=== PATIENT | female | born 1960 | race Caucasian/White ===

== ENCOUNTER 2017-07-03 22:06 | Inpatient (IN) | payer OTHER ==
[2017-07-03] MEDS ORDERED: IPRATROPIUM-ALBUTEROL 3 ML NEB INHALATION STA (22:31)
--- NOTE | 2017-07-03 22:34 | ED ---
General Adult HPI - General Chief complaint: Shortness of Breath Stated complaint: SHRUTI Time Seen by Provider: 07/03/17 22:28 Source: patient, RN notes reviewed Mode of arrival: wheelchair Limitations: no limitations - History of Present Illness Initial comments: Patient is a pleasant 56-year-old female presents emergency department complaining of difficulty breathing. Onset of symptoms was earlier today. Symptoms have progressed of the day. No significant cough. Breathing feels tight otherwise no significant chest discomfort. Patient does have a history of emphysema however does not normally take nebulizer or inhaler. No leg pain or leg swelling. No fever. - Related Data Home Medications Medication Instructions Recorded Confirmed No Known Home Medications [No 07/03/17 07/03/17 Known Home Medications] Allergies Allergy/AdvReac Type Severity Reaction Status Date / Time No Known Allergies Allergy Verified 07/03/17 22:54 Review of Systems ROS Statement: Those systems with pertinent positive or pertinent negative responses have been documented in the HPI. ROS Other: All systems not noted in ROS Statement are negative. Constitutional: Denies: fever Eyes: Denies: eye pain ENT: Denies: ear pain Respiratory: Reports: dyspnea Cardiovascular: Denies: chest pain Endocrine: Denies: fatigue Gastrointestinal: Denies: abdominal pain Genitourinary: Denies: dysuria Musculoskeletal: Denies: back pain Skin: Denies: rash Neurological: Denies: weakness Past Medical History Past Medical History: No Reported History Additional Past Medical History / Comment(s): collapsed lung History of Any Multi-Drug Resistant Organisms: None Reported Past Surgical History: Breast Surgery Additional Past Surgical History / Comment(s): mastectomy Past Psychological History: No Psychological Hx Reported Smoking Status: Never smoker Past Alcohol Use History: Occasional Past Drug Use History: None Reported General Exam Limitations: no limitations General appearance: alert, in no apparent distress, other (Speaks in 3-4 word sentences) Head exam: Present: atraumatic Eye exam: Present: normal appearance, PERRL ENT exam: Present: normal oropharynx Neck exam: Present: normal inspection Respiratory exam: Present: decreased breath sounds Cardiovascular Exam: Present: regular rate, normal rhythm GI/Abdominal exam: Present: soft. Absent: tenderness Extremities exam: Present: normal inspection. Absent: pedal edema, calf tenderness Neurological exam: Present: alert Psychiatric exam: Present: normal affect, normal mood Skin exam: Present: normal color Course Vital Signs 07/03/17 07/03/17 07/03/17 22:08 22:34 22:42 Temperature 97.4 F L Pulse Rate 91 88 86 Respiratory 20 Rate Blood Pressure 187/93 O2 Sat by Pulse 79 L Oximetry 07/03/17 07/03/17 07/04/17 23:03 23:54 00:25 Temperature Pulse Rate 85 100 90 Respiratory 22 26 H 22 Rate Blood Pressure 160/95 140/91 148/80 O2 Sat by Pulse 95 96 95 Oximetry 07/04/17 00:52 Temperature Pulse Rate 80 Respiratory 20 Rate Blood Pressure 125/83 O2 Sat by Pulse 95 Oximetry - Reevaluation(s) Reevaluation #1: 07/04/17 00:44 Case was discussed with Dr. Talavera who will admit for hospital call with [facility] emergency department physician. Consult pulmonary. Dr. Henderson has been paged. 07/04/17 00:54 Following chest tube patient was taken off Ventimask and switched to nasal cannula and now has 94% pulse ox. EKG Findings - EKG Comments: EKG Findings:: Normal sinus rhythm 80. AZ 166. QRS 102. QT 374. QTC 431. Normal axis. Incomplete right bundle-branch block. No acute ST change. Motion artifact is present. Procedures - Chest Tube Insertion Consent Obtained: written consent Time Out Performed: Yes Side of Procedure: right Indication: Pneumothorax Site Prep: Chloroprep Local Anesthesia: Lidocaine 1% Insertion Site: 5th Intercostal Space (Anterior axillary line) Scalpel: #10 Open into Pleural Space Using: Lainey Clamp Tube Size (Guamanian): [address]: Yes Type of Suture: Nylon Dressing Applied: Petroleum Gauze Attached to Suction: Yes Type of Suction: Pleuravac Repeat X-ray Results: Other (Some improvement of pneumothorax. Chest tube in appropriate place.) Patient Tolerated Procedure: well, no complications Medical Decision Making - Lab Data Result diagrams: 07/03/17 22:30 07/03/17 22:30 Lab Results 07/03/17 07/03/17 07/03/17 Range/Units 22:30 22:30 22:30 WBC 12.0 H (3.8-10.6) k/uL RBC 4.89 (3.80-5.40) m/uL Hgb 14.5 (11.4-16.0) gm/dL Hct 45.2 (34.0-46.0) % MCV 92.5 (80.0-100.0) fL MCH 29.7 (25.0-35.0) pg MCHC 32.1 (31.0-37.0) g/dL RDW 13.8 (11.5-15.5) % Plt Count 243 (150-450) k/uL Neutrophils % 81 % Lymphocytes % 12 % Monocytes % 4 % Eosinophils % 2 % Basophils % 0 % Neutrophils # 9.7 H (1.3-7.7) k/uL Lymphocytes # 1.4 (1.0-4.8) k/uL Monocytes # 0.5 (0-1.0) k/uL Eosinophils # 0.2 (0-0.7) k/uL Basophils # 0.0 (0-0.2) k/uL PT (9.0-12.0) sec INR (<1.2) APTT (22.0-30.0) sec D-Dimer (<0.60) mg/L FEU Sodium 137 (137-145) mmol/L Potassium 4.5 (3.5-5.1) mmol/L Chloride 98 (98-107) mmol/L Carbon Dioxide 30 (22-30) mmol/L Anion Gap 9 mmol/L BUN 10 (7-17) mg/dL Creatinine 0.57 (0.52-1.04) mg/dL Est GFR (MDRD) Af Amer >60 (>60 ml/min/1.73 sqM) Est GFR (MDRD) Non-Af >60 (>60 ml/min/1.73 sqM) Glucose 113 H (74-99) mg/dL Calcium 9.6 (8.4-10.2) mg/dL Total Bilirubin 0.5 (0.2-1.3) mg/dL AST 24 (14-36) U/L ALT 34 (9-52) U/L Alkaline Phosphatase 106 (38-126) U/L Total Creatine Kinase 71 (30-135) U/L CK-MB (CK-2) 1.7 (0.0-2.4) ng/mL CK-MB (CK-2) Rel Index 2.4 Troponin I <0.012 (0.000-0.034) ng/mL NT-Pro-B Natriuret Pep pg/mL Total Protein 8.1 (6.3-8.2) g/dL Albumin 4.7 (3.5-5.0) g/dL 07/03/17 07/03/17 Range/Units 22:30 22:30 WBC (3.8-10.6) k/uL RBC (3.80-5.40) m/uL Hgb (11.4-16.0) gm/dL Hct (34.0-46.0) % MCV (80.0-100.0) fL MCH (25.0-35.0) pg MCHC (31.0-37.0) g/dL RDW (11.5-15.5) % Plt Count (150-450) k/uL Neutrophils % % Lymphocytes % % Monocytes % % Eosinophils % % Basophils % % Neutrophils # (1.3-7.7) k/uL Lymphocytes # (1.0-4.8) k/uL Monocytes # (0-1.0) k/uL Eosinophils # (0-0.7) k/uL Basophils # (0-0.2) k/uL PT 10.3 (9.0-12.0) sec INR 1.0 (<1.2) APTT 25.3 (22.0-30.0) sec D-Dimer 0.24 (<0.60) mg/L FEU Sodium (137-145) mmol/L Potassium (3.5-5.1) mmol/L Chloride (98-107) mmol/L Carbon Dioxide (22-30) mmol/L Anion Gap mmol/L BUN (7-17) mg/dL Creatinine (0.52-1.04) mg/dL Est GFR (MDRD) Af Amer (>60 ml/min/1.73 sqM) Est GFR (MDRD) Non-Af (>60 ml/min/1.73 sqM) Glucose (74-99) mg/dL Calcium (8.4-10.2) mg/dL Total Bilirubin (0.2-1.3) mg/dL AST (14-36) U/L ALT (9-52) U/L Alkaline Phosphatase (38-126) U/L Total Creatine Kinase (30-135) U/L CK-MB (CK-2) (0.0-2.4) ng/mL CK-MB (CK-2) Rel Index Troponin I (0.000-0.034) ng/mL NT-Pro-B Natriuret Pep 109 pg/mL Total Protein (6.3-8.2) g/dL Albumin (3.5-5.0) g/dL Disposition Clinical Impression: Pneumothorax on right Disposition: ADMITTED IP TO THIS HOSP Referrals: None,Stated [Primary Care Provider] - 1-2 days Decision Time: 00:57
[2017-07-03 22:44] LABS: Basophils % (A) 0 %; CH 29.9; CHCM 32.5; Eosinophils # (A) 0.2 k/uL (0-0.7); Eosinophils % (A) 2 %; HCT 45.2 % (34.0-46.0); HDW 2.29; HGB 14.5 gm/dL (11.4-16.0); Luc # (Auto) 0.14; Luc % (Auto) 1; Lymphocytes # (A) 1.4 k/uL (1.0-4.8); Lymphocytes % (A) 12 %; MCH 29.7 pg (25.0-35.0); MCHC 32.1 g/dL (31.0-37.0); MCV 92.5 fL (80.0-100.0); Mean Platelet Volume 8.7; Monocytes # (A) 0.5 k/uL (0-1.0); Monocytes % (A) 4 %; Neutrophils # (A) 9.7 k/uL (1.3-7.7); Neutrophils % (A) 81 %; RBC 4.89 m/uL (3.80-5.40); RDW 13.8 % (11.5-15.5)
[2017-07-03 22:55] LABS: ALT 34 U/L (9-52); AST 24 U/L (14-36); Alkaline Phosphatase 106 U/L (38-126); Anion Gap 9 mmol/L; Blood Urea Nitrogen 10 mg/dL (7-17); Calcium 9.6 mg/dL (8.4-10.2); Carbon Dioxide 30 mmol/L (22-30); Chloride 98 mmol/L (98-107); Glucose 113 mg/dL (74-99); Non-African American GFR(MDRD) >60 (>60 ml/min/1.73 sqM); Potassium 4.5 mmol/L (3.5-5.1); Sodium 137 mmol/L (137-145); Total Bilirubin 0.5 mg/dL (0.2-1.3); Total Protein 8.1 g/dL (6.3-8.2)
[2017-07-03 23:01] LABS: Partial Thromboplastin Time 25.3 sec (22.0-30.0); Prothrombin Time 10.3 sec (9.0-12.0)
--- NOTE | 2017-07-03 23:14 | XR ---
EXAM: XR Chest, 1 View CLINICAL HISTORY: Reason: dyspnea TECHNIQUE: Frontal view of the chest. COMPARISON: No relevant prior studies available. FINDINGS: Lungs: Biapical scarring. Pleural space: Paucity of lung markings in the right lung base concerning for pneumothorax possibly loculated. Small bilateral pleural effusions are seen. Heart: Unremarkable. No cardiomegaly. Mediastinum: Unremarkable. Bones/joints: Unremarkable. IMPRESSION: 1. Paucity of lung markings in the right lung base concerning for pneumothorax possibly loculated. Consider dedicated AP and lateral decubitus views for better characterization or CT. 2. Small bilateral pleural effusions are seen. [employer] 07/03/17 23:24 Call Doctor Regarding Pneumothorax, called Dr. Price on 07/03 23:22 (-04:00)
[2017-07-03 23:37] LABS: Creatine Kinase 71 U/L (30-135)
[2017-07-03] MEDS ORDERED: LORazepam 2 MG/ML SYRINGE IV STA (23:48)
[2017-07-03] MEDS ORDERED: MORPHINE SULFATE 4 MG/ML SYRINGE IVP STA (23:48)
[2017-07-03 23:49] LABS: Creatine Kinase MB 1.7 ng/mL (0.0-2.4); Troponin I <0.012 ng/mL (0.000-0.034)
--- NOTE | 2017-07-03 23:52 | CT ---
EXAM: CT Chest Without Intravenous Contrast CLINICAL HISTORY: Reason: dyspnea TECHNIQUE: Axial computed tomography images of the chest without intravenous contrast. CTDI is 3.2 mGy and DLP is 139.7 mGy-cm. This CT exam was performed using one or more of the following dose reduction techniques: automated exposure control, adjustment of the mA and/or kV according to patient size, and/or use of iterative reconstruction technique. Coronal and sagittal reformatted images were created and reviewed. COMPARISON: CXR performed earlier. FINDINGS: Lungs: Postsurgical changes are seen within the right upper lobe with evidence of previous partial pneumonectomy. Pleural space: There is a loculated right-sided pneumothorax, overall moderate in size and approximately 25% by volume. The majority of the air appears to be within the more inferior pleural space. No significant effusion. Heart: Unremarkable. No cardiomegaly. No significant pericardial effusion. Bones/joints: Mild dextroconvex scoliosis. Multilevel Schmorl's nodes. No acute fracture. No dislocation. Soft tissues: Bilateral breast implants are seen. Vasculature: Unremarkable. No thoracic aortic aneurysm. Lymph nodes: Unremarkable. No enlarged lymph nodes. IMPRESSION: 1. There is a loculated right-sided pneumothorax, overall moderate in size and approximately 25% by volume. 2. Postsurgical changes are seen within the right upper lobe with evidence of previous partial pneumonectomy. [employer] 07/03/17 23:54 Call Doctor Regarding Pneumothorax, called Dr. Price on 07/03 23:53 (-04:00)
--- NOTE | 2017-07-04 00:48 | XR ---
EXAM: XR Chest, 1 View CLINICAL HISTORY: Reason: Pain TECHNIQUE: Frontal view of the chest. COMPARISON: Chest x-ray dated 07/03/[address] dated 07/03/17 FINDINGS: Lungs: There has been interval expansion of the lung. No consolidation. Pleural space: A prominent pocket of residual air seen inferiorly on the right. Heart: Unremarkable. No cardiomegaly. Mediastinum: Unremarkable. Bones/joints: Unremarkable. Tubes, lines and devices: Status post right-sided thoracostomy tube. IMPRESSION: Status post right-sided thoracostomy tube. There has been interval expansion of the lung. A prominent pocket of residual air seen inferiorly.
[2017-07-04] MEDS ORDERED: MORPHINE SULFATE 4 MG/ML SYRINGE IV PRN (00:57)
[2017-07-04] MEDS ORDERED: HYDROcodone/APAP 5-325MG 1 EACH TAB PO PRN (00:57)
[2017-07-04] MEDS ORDERED: NALOXONE 0.4 MG/ML 1 ML VIAL IV PRN (00:57)
[2017-07-04] MEDS: ONDANSETRON 4 MG/2 ML VIAL IVP PRN ×2 (01:32→07:43)
[2017-07-04] MEDS: SODIUM CHLORIDE 0.9% 1,000 ML IV SCH (01:33)
[2017-07-04] MEDS ORDERED: IPRATROPIUM-ALBUTEROL 3 ML NEB INHALATION PRN ×2 (01:52→04:09)
[2017-07-04] MEDS ORDERED: oxyCODONE-APAP 5-325MG 1 EACH TAB PO PRN (01:54)
[2017-07-04 02:08] VITALS: BMI 20.1
--- NOTE | 2017-07-04 05:36 | P.HPIM ---
History of Present Illness H&P Date: 07/04/17 Chief Complaint: Chest pain This patient is a 56 years old female with history pneumothorax around 10 years ago presents to the emergency room with complaints of shortness of breath that that started midday at work No known aggravating or alleviating factors no chest pain she she denied any trauma or fall. In the emergency room she was stabilized with oxygen and chest tube was inserted with relief of shortness of breath we were contacted by Dr. Price to admit this patient. Review of Systems Constitutional: Patient reports no fever, no chills, no weight changes, no change in appetite Eyes: Patient reports no double vision, no visual changes ENT: Patient reports no rhinorrhea, no post nasal drip, no sore throat Cardiovascular: Patient reports no chest, no edema, no syncope, no orthopnea, no paroxysmal nocturnal dyspnea. Respiratory: Patient reports dyspnea. Gastrointestinal: Patient reports no nausea, no vomiting, no constipation, no diarrhea Genitourinary: Patient reports no dysuria, no urinary frequency, no hematuria. Musculoskeletal: Patient reports no unusual joint pain, no joint swelling or weakness. Patient reports no muscular pain. Psychiatric: Patient reports no changes in mood, no sleeping problems. Patient reports no changes in memory. Endocrine: Patient reports no thirst, no polyuria, no cold intolerance, no heat intolerance. Neurological: Patient reports no unusual paresthesias, no seizures, no paresis , no paralysis, no facila droop, no headache. Heme/Lymphatic: Patient reports no easy bruising, no bleeding tendency, no lymphadenopathy. Allergic/ Immunologic: Patient reports no recent allergic reactions or immunologic history. Skin: Patient reports no rashes or unusual lesions. Past Medical History Past Medical History: Cancer, Pneumonia Additional Past Medical History / Comment(s): collapsed lung, breast cancer, History of Any Multi-Drug Resistant Organisms: None Reported Past Surgical History: Breast Surgery Additional Past Surgical History / Comment(s): mastectomy, bilateral breast reconstruction, uterine ablation. Partial pneumonectomy 10 years ago Past Psychological History: No Psychological Hx Reported Smoking Status: Former smoker Past Alcohol Use History: Occasional Past Drug Use History: None Reported - Past Family History Mother Family Medical History: Diabetes Mellitus, Hypertension Additional Family Medical History / Comment(s): mother is 84 Father Additional Family Medical History / Comment(s): lung cancer Medications and Allergies Home Medications Medication Instructions Recorded Confirmed Type No Known Home Medications [No 07/03/17 07/03/17 History Known Home Medications] Allergies Allergy/AdvReac Type Severity Reaction Status Date / Time No Known Allergies Allergy Verified 07/03/17 22:54 Physical Exam Vitals: Vital Signs Temp Pulse Pulse Resp BP BP Pulse Ox 07/04/17 02:55 86 18 07/04/17 01:17 84 20 115/83 94 L 07/04/17 01:11 86 18 123/62 92 L 07/04/17 00:52 80 20 125/83 95 07/04/17 00:25 90 22 148/80 95 07/03/17 23:54 100 26 H 140/91 96 07/03/17 23:03 85 22 160/95 95 07/03/17 22:42 86 07/03/17 22:34 88 07/03/17 22:08 97.4 F L 91 20 187/93 79 L Intake and Output 07/03/17 07/03/17 07/04/17 14:59 22:59 06:59 Other: Weight 52.163 kg 53.18 kg Patient Weight 07/04/17 06:59 Weight 53.18 kg - Constitutional General appearance: cooperative, severe distress - EENT Eyes: PERRLA, no photophobia, normal appearance Ears: bilateral: normal - Neck Neck: normal ROM Carotids: bilateral: upstroke normal Thyroid: bilateral: normal size - Respiratory Respiratory: right: diminished, dullness, bilateral: rales (chest tube in place) - Cardiovascular Rhythm: other Abnormal Heart Sounds: systolic murmur, S4 Gallop leg Peripheral Edema: bilateral: None - Gastrointestinal General gastrointestinal: no distended, normal bowel sounds, no organomegaly, no rigid, no splenomegaly, no tenderness - Integumentary Integumentary: flushed, no rash, no ulcer Results CBC & Chem 7: 07/03/17 22:30 07/03/17 22:30 Labs: Abnormal Lab Results - Last 24 Hours (Table) 07/03/17 07/03/17 Range/Units 22:30 22:30 WBC 12.0 H (3.8-10.6) k/uL Neutrophils # 9.7 H (1.3-7.7) k/uL Glucose 113 H (74-99) mg/dL Abdominal x-ray: report reviewed CT scan - chest: report reviewed Thrombosis Risk Factor Assmnt - Choose All That Apply Any of the Below Risk Factors Present?: Yes Each Factor Represents 1 point: Abnormal pulmonary function (COPD), Age 41-60 years, Medical pt on bed rest Thrombosis Risk Factor Assessment Total Risk Factor Score: 3 Thrombosis Risk Factor Assessment Level: Moderate Risk Assessment and Plan (1) Pneumothorax on right Narrative/Plan: I this patient has pneumothorax previously with evidence on chest x-ray him pneumonectomy we will repeat chest x-ray consult pulmonary she already had a chest tube inserted and oxygen was provided we will continue oxygen and" and continue oxygen we will treat her pain with Percocet and morphine for breakthrough pain. Unknown etiology of this is recurrent pneumothorax again with evidence of pneumonectomy on chest x-ray and computed tomography scan we will place her on Lovenox prophylactic dose . Status: Acute (2) Breast CA Status: Acute (3) Breast cancer Narrative/Plan: Please note dictation of this part is accurate on the above diagnosis is error According to the patient she is counseled free. We will repeat chest x-ray and consult pulmonary Status: Acute Plan: #1 acute right-sided pneumothorax Chest tube was inserted in the emergency room oxygen supplemented pain medication provided with morphine This patient has pneumothorax 10 years ago the same side she does not recall what was the reason however now chest x-ray showed partial pneumonectomy
[2017-07-04] MEDS: oxyCODONE-APAP 5-325MG 1 EACH TAB PO PRN ×3 (05:38→16:17)
--- NOTE | 2017-07-04 07:47 | XR ---
EXAMINATION TYPE: XR chest 1V portable DATE OF EXAM: 07/04/2017 COMPARISON: July 04, 2017 HISTORY: Shortness of breath TECHNIQUE: Frontal and lateral views of the chest are obtained. FINDINGS: Right-sided chest tube is unchanged in position. Stable right-sided pneumothorax predominantly at the right lung base. Scattered senescent parenchymal changes noted. Hyperinflation compatible with COPD. No evidence for infiltrate. No evidence for atelectasis. Heart size is stable. Mediastinal structures are stable and grossly unremarkable. No evidence for hilar prominence. Degenerative changes dorsal spine. IMPRESSION: 1. Stable right-sided pneumothorax.
[2017-07-04] MEDS: HYDROcodone/APAP 5-325MG 1 EACH TAB PO PRN (08:02)
[2017-07-04] MEDS: ENOXAPARIN 40 MG/0.4 ML SYRINGE SQ SCH (08:03)
--- NOTE | 2017-07-04 09:17 | P.GSCN ---
<Swapnil Delgadillo - Last Filed: 07/04/17 09:14> History of Present Illness Consult date: 07/04/17 Reason for Consult: Spontaneous right pneumothorax Requesting physician: Alberto Price History of present illness: This is a 56-year-old female patient who does not follow with a primary care physician on a regular basis. She has a past medical history of COPD, breast cancer in 2004 with bilateral mastectomy and bilateral breast reconstruction, a spontaneous right pneumothorax with wedge resection and mechanical pleurodesis in 2006, and a history of nicotine dependence. Yesterday 07/03/2017 with the patient was working at [employer] [place] she developed some shortness of breath with activity around 1 PM and had complaints of nausea. Throughout the day the shortness of breath progressively got worse and was subsequently brought into the emergency department by her sister around 10 PM. A chest x-ray and subsequently a computed tomography scan of her chest was completed which demonstrated a moderate loculated right-sided pneumothorax and a small left pneumothorax. Due to the patient's complaints of shortness of breath and diagnostic results of a right pneumothorax, a right sided thoracostomy tube was placed by the ER physician Dr. Evan Price. Review of Systems A 14 point review of systems was completed and was negative except for what was mentioned in the HPI. Past Medical History Past Medical History: Cancer, COPD, Pneumonia Additional Past Medical History / Comment(s): History of spontaneous pneumothorax in 2006, breast cancer in 2004. History of Any Multi-Drug Resistant Organisms: None Reported Past Surgical History: Ablation (Uterine), Breast Surgery Additional Past Surgical History / Comment(s): mastectomy with bilateral breast reconstruction in 2004, uterine ablation in 2009, spontaneous pneumothorax in 2006 with wedge resection and mechanical pleurodesis. Past Anesthesia/Blood Transfusion Reactions: No Reported Reaction Past Psychological History: No Psychological Hx Reported Smoking Status: Former smoker (Quit in 2006) Past Alcohol Use History: Occasional Past Drug Use History: None Reported - Past Family History Mother Family Medical History: Diabetes Mellitus, Hypertension Additional Family Medical History / Comment(s): mother is 84 Father Family Medical History: COPD Additional Family Medical History / Comment(s): lung cancer Sister(s) Additional Family Medical History / Comment(s): She has 4 sisters, 1 sister with history of breast cancer, and thyroid disorder, 1 sister with history of rheumatoid arthritis, and another sister with history of lupus. Brother(s) Additional Family Medical History / Comment(s): She has 3 brothers, 1 brother has diabetes mellitus type 2. Medications and Allergies Allergies Allergy/AdvReac Type Severity Reaction Status Date / Time No Known Allergies Allergy Verified 07/03/17 22:54 Surgical - Exam Vital Signs Temp Pulse Resp BP Pulse Ox 97.4 F L 91 20 187/93 79 L 07/03/17 22:08 07/03/17 22:08 07/03/17 22:08 07/03/17 22:08 07/03/17 22:08 - General well developed, well nourished, no distress, no pain - Eyes PERRL, normal ocular movement - ENT normal pinna, normal nares, normal mucosa, no hearing loss, no congestion - Neck no masses, no bruits, trachea midline, no lymphadectomy, no venous distension - Respiratory Lung sounds are essentially clear to her left upper lobes and diminished to her left lower lobe, lung sounds to her right chest are diminished throughout with scattered expiratory wheezes. Respirations are symmetrical and nonlabored. Oxygen saturation are 95% on 8 L high flow nasal cannula. Right chest tube in place without airleak, remains to continuous low wall suction -20 cm H2O. No drainage noted. - Cardiovascular Regular rhythm and rate. S1 and S2 present, negative for S3, gallop or murmur. Remote telemetry showing normal sinus rhythm heart rate 87. No edema to her extremities. Peripheral pulses palpable. - Abdomen Abdomen is soft, nontender and nondistended. No organomegaly. Nausea with emesis x1. Abdomen: bowel sounds (Present in all 4 abdominal quadrants.) - Genitourinary Deferred - Rectum Deferred - Integumentary no rash, no growths, no abnormal pigmentation - Neurologic Oriented 3 normal coordination, normal sensation - Musculoskeletal normal gait, normal posture - Psychiatric oriented to time, oriented to person, oriented to place, speech is normal, memory intact Results - Labs 07/03/17 22:30 07/03/17 22:30 Abnormal Lab Results - Last 24 Hours (Table) 07/03/17 07/03/17 Range/Units 22:30 22:30 WBC 12.0 H (3.8-10.6) k/uL Neutrophils # 9.7 H (1.3-7.7) k/uL Glucose 113 H (74-99) mg/dL Diabetes panel 07/03/17 Range/Units 22:30 Sodium 137 (137-145) mmol/L Potassium 4.5 (3.5-5.1) mmol/L Chloride 98 (98-107) mmol/L Carbon Dioxide 30 (22-30) mmol/L BUN 10 (7-17) mg/dL Creatinine 0.57 (0.52-1.04) mg/dL Glucose 113 H (74-99) mg/dL Calcium 9.6 (8.4-10.2) mg/dL AST 24 (14-36) U/L ALT 34 (9-52) U/L Alkaline Phosphatase 106 (38-126) U/L Total Protein 8.1 (6.3-8.2) g/dL Albumin 4.7 (3.5-5.0) g/dL Calcium panel 07/03/17 Range/Units 22:30 Calcium 9.6 (8.4-10.2) mg/dL Albumin 4.7 (3.5-5.0) g/dL Pituitary panel 07/03/17 Range/Units 22:30 Sodium 137 (137-145) mmol/L Potassium 4.5 (3.5-5.1) mmol/L Chloride 98 (98-107) mmol/L Carbon Dioxide 30 (22-30) mmol/L BUN 10 (7-17) mg/dL Creatinine 0.57 (0.52-1.04) mg/dL Glucose 113 H (74-99) mg/dL Calcium 9.6 (8.4-10.2) mg/dL Adrenal panel 07/03/17 Range/Units 22:30 Sodium 137 (137-145) mmol/L Potassium 4.5 (3.5-5.1) mmol/L Chloride 98 (98-107) mmol/L Carbon Dioxide 30 (22-30) mmol/L BUN 10 (7-17) mg/dL Creatinine 0.57 (0.52-1.04) mg/dL Glucose 113 H (74-99) mg/dL Calcium 9.6 (8.4-10.2) mg/dL Total Bilirubin 0.5 (0.2-1.3) mg/dL AST 24 (14-36) U/L ALT 34 (9-52) U/L Alkaline Phosphatase 106 (38-126) U/L Total Protein 8.1 (6.3-8.2) g/dL Albumin 4.7 (3.5-5.0) g/dL - Imaging Chest x-ray: report reviewed, image reviewed CT scan - chest: report reviewed, image reviewed EKG: image reviewed Assessment and Plan (1) History of bilateral breast cancer Status: Acute (2) COPD (chronic obstructive pulmonary disease) Status: Acute (3) History of bilateral mastectomy Status: Acute (4) Hypertension Status: Acute (5) Pneumothorax on right Status: Acute Plan: Patient was seen and examined, her chart and diagnostics were reviewed. Right- sided thoracostomy tube in place and is to continuous low wall suction at -20 cm. There is no air leak present. Incentive spirometry was ordered every hour while awake. This will case be discussed with Dr. Conklin. Daily chest x-rays ordered. Medical management per primary care service. Pulmonary management per Dr. Henderson's recommendations. knee-high NURIA hose and sequential compression devices ordered. Thank you Dr. Price for the consult and we will follow in the care of the patient. Time with Patient: Greater than 30 <Ashkan Conklin - Last Filed: 07/10/17 10:57> Surgical - Exam Vital Signs Temp Pulse Resp BP Pulse Ox 97.4 F L 91 20 187/93 79 L 07/03/17 22:08 07/03/17 22:08 07/03/17 22:08 07/03/17 22:08 07/03/17 22:08 Results - Labs 07/07/17 05:48 07/07/17 05:48 Assessment and Plan Plan: The patient was seen and examined. I agree with the above assessment and plan. The patient is a 56-year-old female with a history of right-sided spontaneous pneumothorax several years ago which was treated with VATS and pleurodesis by Dr. Prabhakar. She presented to the emergency department on this occasion with recurrent right-sided chest pain and shortness of breath. Workup revealed a moderate size right pneumothorax. A chest tube was placed in the emergency department. I was asked to manage this chest tube. We will continue it to suction for now with repeat chest x-ray planned for tomorrow morning.
--- NOTE | 2017-07-04 11:17 | P.CNPUL ---
History of Present Illness Consult date: 07/04/17 Reason for consult: pneumothorax Chief complaint: Shortness of breath and chest pain History of present illness: Consult dated 07/04/2017 56-year-old female with a prior history of right-sided pneumothorax some 10 years ago. She experienced difficulty breathing and right-sided chest pain beginning yesterday morning. She was not doing anything unusual. She was getting ready for work. She finally presented to the emergency department S things got worse throughout the day and was found to have a spontaneous pneumothorax on the right side. A chest tube was placed by the ER physician. It was Dr. Price. She feeling a bit better today. Still has pain when she takes a deep breath. Heavy smoker for a number of years. Quit 10 years ago when she had her first pneumothorax. Has pretty significantly emphysematous lungs. Doesn't see a doctor in this area. Has not seen a doctor for some time. He is to see a family doctor that left area. She takes no medications on a regular basis. Has no ALLERGIES. Review of Systems A 12 point review of system is positive for shortness of breath and chest pain on the right side. The rest of the 12 point review of system is unremarkable. Past Medical History Past Medical History: Cancer, COPD, Pneumonia Additional Past Medical History / Comment(s): History of spontaneous pneumothorax in 2006, breast cancer in 2004. History of Any Multi-Drug Resistant Organisms: None Reported Past Surgical History: Ablation (Uterine), Breast Surgery Additional Past Surgical History / Comment(s): mastectomy with bilateral breast reconstruction in 2004, uterine ablation in 2009, spontaneous pneumothorax in 2006 with wedge resection and mechanical pleurodesis. Past Anesthesia/Blood Transfusion Reactions: No Reported Reaction Past Psychological History: No Psychological Hx Reported Smoking Status: Former smoker (Quit in 2006) Past Alcohol Use History: Occasional Past Drug Use History: None Reported - Past Family History Mother Family Medical History: Diabetes Mellitus, Hypertension Additional Family Medical History / Comment(s): mother is 84 Father Family Medical History: COPD Additional Family Medical History / Comment(s): lung cancer Sister(s) Additional Family Medical History / Comment(s): She has 4 sisters, 1 sister with history of breast cancer, and thyroid disorder, 1 sister with history of rheumatoid arthritis, and another sister with history of lupus. Brother(s) Additional Family Medical History / Comment(s): She has 3 brothers, 1 brother has diabetes mellitus type 2. Medications and Allergies Home Medications Medication Instructions Recorded Confirmed Type No Known Home Medications [No 07/03/17 07/03/17 History Known Home Medications] Allergies Allergy/AdvReac Type Severity Reaction Status Date / Time No Known Allergies Allergy Verified 07/03/17 22:54 Physical Exam Osteopathic Statement: *. No significant issues noted on an osteopathic structural exam other than those noted in the History and Physical/Consult. Vitals: Vital Signs Temp Pulse Pulse Resp BP BP Pulse Ox 07/04/17 08:15 95 07/04/17 08:00 96.3 F L 81 18 107/65 90 L 07/04/17 02:55 86 18 07/04/17 02:40 97.4 F L 84 18 123/82 91 L 07/04/17 01:17 84 20 115/83 94 L 07/04/17 01:11 86 18 123/62 92 L 07/04/17 00:52 80 20 125/83 95 07/04/17 00:25 90 22 148/80 95 07/03/17 23:54 100 26 H 140/91 96 07/03/17 23:03 85 22 160/95 95 07/03/17 22:42 86 07/03/17 22:34 88 07/03/17 22:08 97.4 F L 91 20 187/93 79 L Intake and Output 07/03/17 07/04/17 07/04/17 22:59 06:59 14:59 Intake Total 80 0 Balance 80 0 Intake: Intake, IV Titration 80 Amount Sodium Chloride 0.9% 1, 80 000 ml @ 20 mls/hr IV . Q24H [facility] Rx#:[id number] Oral 0 Other: Voiding Method Toilet Weight 52.163 kg 53.2 kg No acute distress, oriented 3. HEENT examination is grossly unremarkable. Mucous membranes are moist. No oral lesions. Neck supple. Full range of motion. No adenopathy or thyromegaly. Cardiovascular examination reveals regular rhythm rate. S1-S2 normal. No S3- S4. Lungs reveal clear breath sounds. Breath sounds slightly diminished on the right. No wheezes or rhonchi. Abdomen soft. Extremities are intact. Skin without rash. Neurologic examination is nonfocal. Results - Laboratory Findings CBC and BMP: 07/03/17 22:30 08/23/17 22:30 PT/INR, D-dimer PT 10.3 sec (9.0-12.0) 07/03/17 22:30 INR 1.0 (<1.2) 07/03/17 22:30 D-Dimer 0.24 mg/L FEU (<0.60) 07/03/17 22:30 Abnormal lab findings: Abnormal Labs 07/03/17 07/03/17 22:30 22:30 WBC 12.0 H Neutrophils # 9.7 H Glucose 113 H - Diagnostic Findings Chest x-ray: image reviewed (X-rays labs and medications are all reviewed.) Assessment and Plan (1) Breast CA Status: Acute (2) Breast cancer Status: Acute (3) COPD (chronic obstructive pulmonary disease) Status: Acute (4) History of bilateral breast cancer Status: Acute (5) History of bilateral mastectomy Status: Acute (6) Pneumothorax on right Status: Acute Plan: Plan dated 07/04/2017 The patient's medications were reviewed. Her chest x-ray and CAT scan reviewed. The patient likely has underlying COPD. She did have a previous pneumothorax 10 years ago. She does not smoke currently. We'll make sure she is on appropriate medications. We'll continue to follow. Her proper medication should include some updrafts and Symbicort. Time with Patient: Greater than 30
[2017-07-04] MEDS ORDERED: ONDANSETRON 4 MG/2 ML VIAL IVP PRN (11:32)
[2017-07-04] MEDS: PROMETHAZINE INJ 6.25 MG in SODIUM CHLORIDE 0.9% 50 ML IVPB PRN (12:19)
--- NOTE | 2017-07-04 14:34 | P.PN ---
Subjective Principal diagnosis: Pneumothorax his patient is a 56 years old female with history pneumothorax around 10 years ago presents to the emergency room with complaints of shortness of breath that that started midday at work No known aggravating or alleviating factors no chest pain she she denied any trauma or fall. In the emergency room she was stabilized with oxygen and chest tube was inserted with relief of shortness of breath This morning patient is feeling better, less dyspnea and pain. She does not have appetite and feeling very tired. Denies headache, nausea, abdominal pain or changes with urination or bowel movements. Objective - Vital Signs Vital signs: Vital Signs Temp 96.3 F L 07/04/17 08:00 Pulse 81 07/04/17 08:00 Resp 18 07/04/17 08:00 BP 107/65 07/04/17 08:00 Pulse Ox 95 07/04/17 08:15 Intake & Output 07/03/17 07/04/17 07/04/17 18:59 06:59 18:59 Intake Total 80 Balance 80 Weight 53.2 kg Intake: Intake, IV Titration 80 Amount Sodium Chloride 0.9% 1, 80 000 ml @ 20 mls/hr IV . Q24H [facility] Rx#:[id number] Other: Voiding Method Toilet - Exam General-no acute distress, awake alert oriented 3 HEENT-normocephalic atraumatic, sclerae anicteric Neck supple, no JVD or thyromegaly Cardiovascular exam reveals normal S1-S2, regular rate and rhythm. Chest-symmetric, diminished breath sounds on the right side, no wheezes or crackles. Chest tube in place. Abdomen is soft, nondistended, normoactive bowel sounds. Extremities-no edema or cyanosis. - Labs CBC & Chem 7: 07/03/17 22:30 07/03/17 22:30 Labs: Abnormal Lab Results - Last 24 Hours (Table) 07/03/17 07/03/17 Range/Units 22:30 22:30 WBC 12.0 H (3.8-10.6) k/uL Neutrophils # 9.7 H (1.3-7.7) k/uL Glucose 113 H (74-99) mg/dL Assessment and Plan Plan: 1. Acute respiratory failure secondary to pneumothorax, improved. Continue supplemental oxygen. 2. Spontaneous pneumothorax, chest tube has been placed. Pulmonology and surgery on board. 3. DT prophylaxis. Time with Patient: Less than 30
[2017-07-04] MEDS: KETOROLAC 30 MG/ML 1 ML VIAL IVP PRN ×2 (16:58→23:59)
[2017-07-04] MEDS: SYMBICORT 160-4.5 MCG INHALER INHALATION SCH (19:57)
[2017-07-05] MEDS: SODIUM CHLORIDE 0.9% 1,000 ML IV SCH
[2017-07-05] MEDS: HYDROcodone/APAP 5-325MG 1 EACH TAB PO PRN (06:26)
[2017-07-05 06:39] LABS: CH 29.6; HCT 38.5 % (34.0-46.0); HDW 2.26; HGB 12.4 gm/dL (11.4-16.0); MCH 30.9 pg (25.0-35.0); MCHC 32.2 g/dL (31.0-37.0); Mean Platelet Volume 8.7; RBC 4.01 m/uL (3.80-5.40); WBC 12.4 k/uL (3.8-10.6)
[2017-07-05 06:52] LABS: Anion Gap 4 mmol/L; Blood Urea Nitrogen 11 mg/dL (7-17); Carbon Dioxide 33 mmol/L (22-30); Chloride 97 mmol/L (98-107); Glucose 96 mg/dL (74-99); Non-African American GFR(MDRD) >60 (>60 ml/min/1.73 sqM); Potassium 5.2 mmol/L (3.5-5.1); Sodium 134 mmol/L (137-145)
[2017-07-05] MEDS: PROMETHAZINE INJ 6.25 MG in SODIUM CHLORIDE 0.9% 50 ML IVPB PRN (08:00)
--- NOTE | 2017-07-05 08:50 | XR ---
EXAMINATION TYPE: XR chest 1V DATE OF EXAM: 07/05/2017 COMPARISON: 07/04/2017 HISTORY: Pneumothorax follow-up. TECHNIQUE: Single frontal view of the chest is obtained. FINDINGS: Lucency at the right lung base has improved with residual basilar pneumothorax also seen ap ical medially. Right thoracostomy tube is unchanged in position. Scattered areas of right-sided atele ctasis are seen as a result. Cardiomediastinal silhouette is within normal limits. Osseous structures are intact. Pulmonary hyperinflation is again noted. IMPRESSION: Improving right pneumothorax with stable position of a right thoracostomy tube.
--- NOTE | 2017-07-05 09:06 | P.PN ---
Subjective Principal diagnosis: Patient is seen and examined, in follow up for spontaneous pneumothorax 56 year old female with PMHx of COPD and history of spontaneous pneumothorax 10 years ago, presented with sudden onset right sided chest pain and difficulty in breathing. She was brought to the emergency department and was found to have right-sided pneumothorax for which a chest tube was inserted. Today patient denies any chest pain or trouble breathing denies any coughing she continues to have right-sided chest tube with water seal but no air leaks. Yesterday's chest x-ray did not show full expansion of the lungs. I discussed the case today with cardiothoracic nurse practitioner plan is to repeat chest x- ray and follow-up on recommendations pending results once we achieve full expansion plan would be to clamp the tube and monitor for any recurrence . patient denies any postural dizziness, and reported that her blood pressure normally runs low. Objective - Vital Signs Vital signs: Vital Signs Temp 98.7 F 07/05/17 00:00 Pulse 76 07/05/17 04:00 Resp 16 07/05/17 04:00 BP 93/60 07/05/17 04:00 Pulse Ox 94 L 07/05/17 04:00 Intake & Output 07/04/17 07/05/17 07/05/17 18:59 06:59 18:59 Intake Total 730 200 Output Total 214 5 Balance 516 195 Weight 54.3 kg Intake: IV 200 Sodium Chloride 0.9% 1, 200 000 ml @ 20 mls/hr IV . Q24H [facility] Rx#:[id number] Intake, IV Titration 250 Amount Promethazine Inj 6.25 mg 50 In Sodium Chloride 0.9% 50 ml @ 200 mls/hr IVPB Q6HR [facility] Rx#:[id number] Sodium Chloride 0.9% 1, 200 000 ml @ 20 mls/hr IV . Q24H [facility] Rx#:[id number] Oral 480 Output: Chest Tube Drainage 14 5 Chest Tube Right 14 5 Emesis 200 Other: Voiding Method Toilet Toilet # Voids 1 2 Constitutional: Not in acute distress, pleasant, conversant Lungs: Clear to auscultation bilaterally slightly diminished breath sounds on lung basis, normal respiratory effort no use of accessory muscles, right-sided chest tube with no air leaks Cardiovascular: Regular rate and rhythm, no murmurs, no gallops, no rubs, no peripheral leg edema Extremities: Peripheral pulses palpable and equal over bilateral radial arteries , no calf muscle tenderness Psych: Alert, oriented to place, person and time, intact judgment - Labs CBC & Chem 7: 07/05/17 05:47 07/05/17 05:44 Labs: Abnormal Lab Results - Last 24 Hours (Table) 07/05/17 07/05/17 Range/Units 05:44 05:47 WBC 12.4 H (3.8-10.6) k/uL Sodium 134 L (137-145) mmol/L Potassium 5.2 H (3.5-5.1) mmol/L Chloride 97 L (98-107) mmol/L Carbon Dioxide 33 H (22-30) mmol/L Creatinine 0.50 L (0.52-1.04) mg/dL Assessment and Plan (1) Acute respiratory failure with hypoxia Narrative/Plan: due to spontaneous pneumothorax , now controlled with oxygen via nasal canula and chest tube for pneumothorax assess oxygen requirement before discharge Status: Acute (2) Pneumothorax on right Narrative/Plan: improving but no full expansion of the lungs await repeat chest xray today await further cardiothoracic surgery recommendations regarding clamping the chest tube pending results Status: Acute (3) Hypotension Narrative/Plan: asymptomatic no tachycardia continue to monitor not on blood pressure medications Status: Acute (4) Hyperkalemia Narrative/Plan: mild and asymptomatic cardiac/vascular sonographer NSR recheck level at 1500 if continues to trend up, then will consider Insulin IV + D50% Status: Acute (5) DVT prophylaxis Narrative/Plan: on lovenox and mechanical anticoagulation Status: Acute (6) COPD (chronic obstructive pulmonary disease) Narrative/Plan: with emphysematous changes which most likely led to spontaneous pneumothorax not on medications at home now on Duonebs and symbicort patient quit smoking years ago Status: Chronic (7) History of bilateral breast cancer Status: Chronic (8) History of bilateral mastectomy Status: Chronic Plan: await further cardiothoracic surgery recommendations regarding chest tube management I anticipate discharge in 48 hours
[2017-07-05] MEDS: SYMBICORT 160-4.5 MCG INHALER INHALATION SCH ×2 (09:15→20:31)
--- NOTE | 2017-07-05 11:49 | P.PN ---
Subjective 56-year-old female with a prior history of right-sided pneumothorax some 10 years ago. She experienced difficulty breathing and right-sided chest pain beginning yesterday morning. She was not doing anything unusual. She was getting ready for work. She finally presented to the emergency department S things got worse throughout the day and was found to have a spontaneous pneumothorax on the right side. A chest tube was placed by the ER physician. It was Dr. Price. She feeling a bit better today. Still has pain when she takes a deep breath. Heavy smoker for a number of years. Quit 10 years ago when she had her first pneumothorax. Has pretty significantly emphysematous lungs. Doesn't see a doctor in this area. Has not seen a doctor for some time. He is to see a family doctor that left area. She takes no medications on a regular basis. Has no ALLERGIES. The patient is seen again today 2016 in follow-up on the selective care unit. She is awake and alert in no acute distress. She is sitting up in bed. She states she is breathing easier today as compared to yesterday. She continues with some dyspnea on exertion and some loose nonproductive cough. Her chest x-ray does show near complete reexpansion of the right lung. There is no leak noted. She is requiring 6 L of high flow nasal cannula and maintaining O2 saturations in the 90s. She is afebrile. Hemodynamically stable. Objective - Vital Signs Vital signs: Vital Signs Temp 97.1 F L 07/05/17 07:45 Pulse 80 07/05/17 09:35 Resp 16 07/05/17 07:45 BP 101/68 07/05/17 07:45 Pulse Ox 92 L 07/05/17 07:45 Intake & Output 07/04/17 07/05/17 07/05/17 18:59 06:59 18:59 Intake Total 730 200 Output Total 214 5 0 Balance 516 195 0 Weight 54.3 kg Intake: IV 200 Sodium Chloride 0.9% 1, 200 000 ml @ 20 mls/hr IV . Q24H [facility] Rx#:[id number] Intake, IV Titration 250 Amount Promethazine Inj 6.25 mg 50 In Sodium Chloride 0.9% 50 ml @ 200 mls/hr IVPB Q6HR [facility] Rx#:[id number] Sodium Chloride 0.9% 1, 200 000 ml @ 20 mls/hr IV . Q24H [facility] Rx#:[id number] Oral 480 Output: Chest Tube Drainage 14 5 0 Chest Tube Right 14 5 0 Emesis 200 Other: Voiding Method Toilet Toilet Toilet # Voids 1 2 - Exam No acute distress, oriented 3. HEENT examination is grossly unremarkable. Mucous membranes are moist. No oral lesions. Neck supple. Full range of motion. No adenopathy or thyromegaly. Cardiovascular examination reveals regular rhythm rate. S1-S2 normal. No S3- S4. Lungs reveal clear breath sounds. Breath sounds slightly diminished on the right. No wheezes or rhonchi. Abdomen soft. Extremities are intact. Skin without rash. Neurologic examination is nonfocal. - Labs CBC & Chem 7: 07/05/17 05:47 07/05/17 05:44 Labs: Abnormal Lab Results - Last 24 Hours (Table) 07/05/17 07/05/17 Range/Units 05:44 05:47 WBC 12.4 H (3.8-10.6) k/uL Sodium 134 L (137-145) mmol/L Potassium 5.2 H (3.5-5.1) mmol/L Chloride 97 L (98-107) mmol/L Carbon Dioxide 33 H (22-30) mmol/L Creatinine 0.50 L (0.52-1.04) mg/dL Assessment and Plan Plan: Impression: #1 Acute hypoxic respiratory failure secondary to an acute right-sided spontaneous pneumothorax in combination with an acute exacerbation of chronic obstructive pulmonary disease. #2 History of previous right-sided pneumothorax, spontaneous approximate 10 years ago. #3 Acute exacerbation of chronic obstructive pulmonary disease. #4 History of breast cancer. Plan: The patient was seen and evaluated by Dr. Henderson. Her chest x-ray and labs were reviewed. Her right sided pneumothorax has improved. There is no leak currently. She is improved today as compared to yesterday. We'll continue with her current medications. We will increase her activity as tolerated. We' ll continue to follow.
[2017-07-05 11:53] VITALS: RESP 18
[2017-07-05] MEDS: ENOXAPARIN 40 MG/0.4 ML SYRINGE SQ SCH (12:08)
[2017-07-05] MEDS: IPRATROPIUM-ALBUTEROL 3 ML NEB INHALATION SCH ×4 (13:29→23:42)
[2017-07-05] MEDS: KETOROLAC 30 MG/ML 1 ML VIAL IVP PRN ×2 (13:32→19:19)
[2017-07-05 14:43] LABS: Potassium 4.9 mmol/L (3.5-5.1)
--- NOTE | 2017-07-05 15:38 | P.PN ---
<Swapnil Delgadillo - Last Filed: 07/05/17 15:36> Subjective Principal diagnosis: Spontaneous right pneumothorax, COPD (chronic obstructive pulmonary disease), history of bilateral breast cancer with bilateral mastectomy and breast reconstruction. Status post day #2 placement of right thoracostomy tube. She is sitting up to the bedside tolerating her breakfast. She reports no further bouts of nausea or vomiting since starting on the promethazine. Correction has been weaned down to 6 L nasal cannula. No acute distress. She reports that her breathing feels slightly better today. Objective - Vital Signs Vital signs: Vital Signs Temp 97.1 F L 07/05/17 07:45 Pulse 80 07/05/17 09:35 Resp 16 07/05/17 07:45 BP 101/68 07/05/17 07:45 Pulse Ox 92 L 07/05/17 07:45 Intake & Output 07/04/17 07/05/17 07/05/17 18:59 06:59 18:59 Intake Total 730 200 Output Total 214 5 0 Balance 516 195 0 Weight 54.3 kg Intake: IV 200 Sodium Chloride 0.9% 1, 200 000 ml @ 20 mls/hr IV . Q24H [facility] Rx#:[id number] Intake, IV Titration 250 Amount Promethazine Inj 6.25 mg 50 In Sodium Chloride 0.9% 50 ml @ 200 mls/hr IVPB Q6HR [facility] Rx#:[id number] Sodium Chloride 0.9% 1, 200 000 ml @ 20 mls/hr IV . Q24H [facility] Rx#:[id number] Oral 480 Output: Chest Tube Drainage 14 5 0 Chest Tube Right 14 5 0 Emesis 200 Other: Voiding Method Toilet Toilet Toilet # Voids 1 2 - Constitutional General appearance: Present: cooperative, no acute distress, thin - EENT Eyes: Present: PERRLA ENT: Present: hearing grossly normal - Neck Details: No JVD present - Respiratory Details: Essentially clear throughout, diminished to her right lobes. Respirations are symmetrical and unlabored. Right pleural chest tube remains in place to low continuous wall suction -20 cm. No airleak present. 10 mL output of skin serosanguineous drainage in the last 24 hours. Oxygen saturations are 94% on 6 L nasal cannula. She is achieving 250-500 mL on her incentive spirometry. She has a thick nonproductive cough. - Cardiovascular Details: Regular rhythm and rate. S1 and S2 present, negative for S3, gallop or murmur. No edema present. Remote telemetry showing normal sinus rhythm heart rate 71. Peripheral pulses palpable. Sequential compression devices and knee-high NURIA hose in place to her bilateral lower extremities. - Gastrointestinal Gastrointestinal Comment(s): abdomen is , non-distended, and nontender. Positive bowel sounds to all 4 abdominal quadrants. - Genitourinary Genitourinary Comment(s): adequate urine output, clear yellow urine. - Integumentary Integumentary: Present: normal, normal turgor - Musculoskeletal Musculoskeletal: Present: gait normal, strength equal bilaterally - Psychiatric Psychiatric: Present: A&O x's 3, appropriate affect, intact judgment & insight - Allied health notes Allied health notes reviewed: nursing - Labs CBC & Chem 7: 07/05/17 05:47 07/05/17 14:10 Labs: Abnormal Lab Results - Last 24 Hours (Table) 07/05/17 07/05/17 Range/Units 05:44 05:47 WBC 12.4 H (3.8-10.6) k/uL Sodium 134 L (137-145) mmol/L Potassium 5.2 H (3.5-5.1) mmol/L Chloride 97 L (98-107) mmol/L Carbon Dioxide 33 H (22-30) mmol/L Creatinine 0.50 L (0.52-1.04) mg/dL - Imaging and Cardiology Chest x-ray: report reviewed, image reviewed Assessment and Plan (1) History of bilateral breast cancer Status: Chronic (2) COPD (chronic obstructive pulmonary disease) Status: Chronic (3) History of bilateral mastectomy Status: Chronic (4) Hypertension Status: Acute (5) Pneumothorax on right Status: Acute Plan: 1. We will place her right thoracostomy tube to waterseal. 2. Continue to encourage use of her incentive spirometry every hour while awake. 3. Wean oxygen as tolerated to keep her oxygen saturation is greater than 92%. 4. Pulmonary recommendations per Dr. Henderson. 5. DVT and GI prophylaxis. 6. Further recommendations as patient progresses. Time with Patient: Greater than 30 <Ashkan Conklin - Last Filed: 07/10/17 10:54> Objective - Vital Signs Vital signs: Vital Signs Temp 97.3 F L 07/07/17 16:00 Pulse 82 07/07/17 16:00 Resp 18 07/07/17 16:00 BP 123/89 07/07/17 16:00 Pulse Ox 93 L 07/07/17 16:00 - Labs CBC & Chem 7: 07/07/17 05:48 07/07/17 05:48 Assessment and Plan Plan: The patient was seen and examined. I agree with the above assessment and plan. Her chest x-ray appears to be improved. There is no obvious air leak on suction today. We will transition her to waterseal with plans for a repeat chest x-ray in the morning.
[2017-07-05] MEDS: oxyCODONE-APAP 5-325MG 1 EACH TAB PO PRN (23:20)
[2017-07-06] MEDS: IPRATROPIUM-ALBUTEROL 3 ML NEB INHALATION SCH ×7 (03:11→23:27)
[2017-07-06] MEDS: SODIUM CHLORIDE 0.9% 1,000 ML IV SCH (07:05)
--- NOTE | 2017-07-06 07:26 | XR ---
EXAMINATION TYPE: XR chest 2V DATE OF EXAM: 07/06/2017 COMPARISON: 07/05/2017 TECHNIQUE: PA and lateral views submitted. HISTORY: Chest 2 FINDINGS: Diffuse COPD noted. Right-sided chest tube seen with approximate 15-20% hydropneumothorax. Biapical pleural thickening noted. Degenerative change spine. IMPRESSION: 1. Chest tube noted with persistent right-sided hydropneumothorax measuring 15-20%.
[2017-07-06] MEDS ORDERED: LACTULOSE 20 GM/30 ML CUP PO ONE (08:16)
[2017-07-06] MEDS: ENOXAPARIN 40 MG/0.4 ML SYRINGE SQ SCH (08:21)
[2017-07-06] MEDS: ACETAMINOPHEN IV (For NPO) 1,000 MG in EMPTY BAG 1 BAG IVPB SCH ×3 (09:08→20:08)
[2017-07-06] MEDS: SYMBICORT 160-4.5 MCG INHALER INHALATION SCH ×3 (09:12→19:49)
--- NOTE | 2017-07-06 11:37 | P.PN ---
Subjective Principal diagnosis: Spontaneous right pneumothorax, COPD (chronic obstructive pulmonary disease), history of bilateral breast cancer with bilateral mastectomy and breast reconstruction. Status post day #3 placement of right thoracostomy tube. She is sitting up to the bedside tolerating a small amount of her breakfast. She is complaining of nausea and a headache. No acute distress. She is also complaining of constipation and reports she has not had a bowel movement since her admission on Saturday. Her oxygen has been weaned down to 4 L nasal cannula and her current oxygen saturation is 98%. Her chest tube is to water seal and has been off wall suction for around 24 hours. There is no air leak present. Objective - Vital Signs Vital signs: Vital Signs Temp 97.8 F 07/06/17 04:00 Pulse 98 07/06/17 04:00 Resp 18 07/06/17 04:00 BP 116/72 07/06/17 04:00 Pulse Ox 97 07/06/17 04:00 Intake & Output 07/05/17 07/06/17 07/06/17 18:59 06:59 18:59 Intake Total 240 240 Output Total 7 271 0 Balance 233 -271 240 Weight 55 kg Intake: IV 120 240 Sodium Chloride 0.9% 1, 120 240 000 ml @ 20 mls/hr IV . Q24H [facility] Rx#:[id number] Oral 120 Output: Chest Tube Drainage 7 21 0 Chest Tube Right 7 21 0 Urine 250 Other: Voiding Method Toilet Toilet # Voids 2 1 - Constitutional General appearance: Present: cooperative, no acute distress, thin - EENT Eyes: Present: PERRLA, normal appearance ENT: Present: hearing grossly normal - Neck Details: No JVD, no lymphadenopathy. - Respiratory Details: Lung sounds are essentially clear to her left lobes, diminished her left lower lobe. Lung sounds to her right lobes scattered crackles throughout, diminished to her right lower lobe. Respirations are symmetrical and unlabored. She is achieving 750 mL on her incentive spirometry. Proximal and saturations are 98% on 4 L nasal cannula. Right chest tube remains in place, no air leak present. Draining thin serosanguineous drainage 10 mL output in the last 24 hours. - Cardiovascular Details: Regular rhythm and rate. S1 and S2 present, negative for S3, gallop or murmur. Remote telemetry showing normal sinus rhythm heart rate 86. No edema present. Sequential compression devices in place to bilateral lower extremities. - Gastrointestinal Gastrointestinal Comment(s): Abdomen soft, nondistended, nontender. No guarding. No organomegaly. Bowel sounds are present all 4 abdominal quadrants. - Genitourinary Genitourinary Comment(s): Adequate urine output, clear yellow urine. - Integumentary Integumentary Comment(s): No rash, no cyanosis. Integumentary: Present: normal, normal turgor - Neurologic Neurologic Comment(s): No focal deficits. Neurologic: Present: CNII-XII intact - Psychiatric Psychiatric: Present: A&O x's 3, appropriate affect, intact judgment & insight - Allied health notes Allied health notes reviewed: nursing - Labs CBC & Chem 7: 07/05/17 05:47 07/05/17 14:10 Labs: Abnormal Lab Results - Last 24 Hours (Table) 07/05/17 Range/Units 14:10 Sodium 134 L (137-145) mmol/L Chloride 94 L (98-107) mmol/L Carbon Dioxide 37 H (22-30) mmol/L - Imaging and Cardiology Chest x-ray: report reviewed, image reviewed Assessment and Plan (1) History of bilateral breast cancer Status: Chronic (2) COPD (chronic obstructive pulmonary disease) Status: Chronic (3) History of bilateral mastectomy Status: Chronic (4) Hypertension Status: Acute (5) Pneumothorax on right Status: Acute Plan: 1. We will remove her right thoracostomy tube today. We will repeat a 2 view chest x-ray in the a.m. 2. Continue to encourage use of her incentive spirometry every hour while awake. 3. Wean oxygen as tolerated to keep her oxygen saturation is greater than 92%. 4. Pulmonary recommendations per Dr. Henderson. 5. DVT and GI prophylaxis. 6. Lactulose 1 dose for complaints of constipation. 7. IV acetaminophen ordered 24 hours, Fouke and oxycodone discontinued due to her complaints of nausea after taking the medication. 8. Further recommendations as patient progresses. Right pleural chest tube removed without incident. 4 x 4 dressing, Vaseline impregnated gauze to cover incision and secured with tape. Time with Patient: Greater than 30
--- NOTE | 2017-07-06 12:16 | P.PN ---
Subjective Progress note dated 07/06/2017 This is a 56-year-old female with history of bone spontaneous pneumothorax. This is her second spontaneous pneumothorax. Yesterday and today we checked for an air leak. She did not have one. Today her chest tube will be removed. She looks pretty comfortable. Could go home today. No major complaints or issues. The patient did have a previous pneumothorax 10 years ago. She is a heavy smoker. Objective - Vital Signs Vital signs: Vital Signs Temp 97.5 F L 07/06/17 08:00 Pulse 83 07/06/17 08:00 Resp 18 07/06/17 08:00 BP 133/86 07/06/17 08:00 Pulse Ox 93 L 07/06/17 08:00 Intake & Output 07/05/17 07/06/17 07/06/17 18:59 06:59 18:59 Intake Total 240 480 Output Total 7 271 0 Balance 233 -271 480 Weight 55 kg Intake: IV 120 240 Sodium Chloride 0.9% 1, 120 240 000 ml @ 20 mls/hr IV . Q24H [facility] Rx#:[id number] Oral 120 240 Output: Chest Tube Drainage 7 21 0 Chest Tube Right 7 21 0 Urine 250 Other: Voiding Method Toilet Toilet # Voids 2 1 0 # Bowel Movements 0 - Exam No acute distress, oriented 3. HEENT examination is grossly unremarkable. Mucous membranes are moist. No oral lesions. Neck supple. Full range of motion. No adenopathy or thyromegaly. Cardiovascular examination reveals regular rhythm rate. Normal. No S3-S4 or murmur. Lungs reveal clear but somewhat diminished breath sounds. No wheezes or rhonchi. No crackles. Abdomen soft bowel sounds are heard. Extremities are intact. No cyanosis clubbing or edema. Skin without rash. Neurologic examination is nonfocal. - Labs CBC & Chem 7: 07/05/17 05:47 07/05/17 14:10 Labs: Abnormal Lab Results - Last 24 Hours (Table) 07/05/17 Range/Units 14:10 Sodium 134 L (137-145) mmol/L Chloride 94 L (98-107) mmol/L Carbon Dioxide 37 H (22-30) mmol/L Assessment and Plan (1) Breast CA Status: Acute (2) Breast cancer Status: Acute (3) COPD (chronic obstructive pulmonary disease) Status: Chronic (4) History of bilateral breast cancer Status: Chronic (5) History of bilateral mastectomy Status: Chronic (6) Pneumothorax on right Status: Acute Plan: Plan dated 07/04/2017 The patient's medications were reviewed. Her chest x-ray and CAT scan reviewed. The patient likely has underlying COPD. She did have a previous pneumothorax 10 years ago. She does not smoke currently. We'll make sure she is on appropriate medications. We'll continue to follow. Her proper medication should include some updrafts and Symbicort. Plan dated 07/06/2017 Marbin Delgadillo will remove the chest tube today. His get a repeat a chest x-ray at 12 :30. If her lung remains expanded, from my perspective she could be discharged home. Should follow-up in the pulmonary office. No additional recommendations are made. Time with Patient: Less than 30
--- NOTE | 2017-07-06 14:10 | XR ---
EXAMINATION TYPE: XR chest 2V DATE OF EXAM: 07/06/2017 COMPARISON: 07/06/2017 earlier exam INDICATION: Post right-sided chest tube removal TECHNIQUE: Frontal and lateral views of the chest are obtained. FINDINGS: The heart size is normal. The pulmonary vasculature is normal. There is hyperinflation flattening the diaphragms compatible COPD. Postsurgical changes are at the ri ght apex. There is a loculated right lower lobe pneumothorax. This area appears stable. Small amount fluid is w ithin the right lung base. Some minimal fluid is not excluded the left base.. IMPRESSION: 1. Loculated right base Marty pneumothorax stable from earlier examination post chest tube removal.
--- NOTE | 2017-07-06 17:46 | P.PN ---
Subjective Principal diagnosis: Patient is seen and examined, in follow up for spontaneous pneumothorax and emphysematous COPD 56 year old female with PMHx of COPD and history of spontaneous pneumothorax 10 years ago, presented with sudden onset right sided chest pain and difficulty in breathing. She was brought to the emergency department and was found to have right-sided pneumothorax for which a chest tube was inserted. Patient seen and examined, seems very comfortable, denies any chest pain or trouble breathing. Chest tube was removed today. no new complaints Objective - Vital Signs Vital signs: Vital Signs Temp 98.2 F 07/06/17 15:31 Pulse 83 07/06/17 15:31 Resp 18 07/06/17 15:31 BP 113/74 07/06/17 15:31 Pulse Ox 100 07/06/17 15:31 Intake & Output 07/05/17 07/06/17 07/06/17 18:59 06:59 18:59 Intake Total 240 480 Output Total 7 271 0 Balance 233 -271 480 Weight 55 kg Intake: IV 120 240 Sodium Chloride 0.9% 1, 120 240 000 ml @ 20 mls/hr IV . Q24H [facility] Rx#:[id number] Oral 120 240 Output: Chest Tube Drainage 7 21 0 Chest Tube Right 7 21 0 Urine 250 Other: Voiding Method Toilet Toilet # Voids 2 1 0 # Bowel Movements 0 Constitutional: vital signs stable, Not in acute distress, pleasant, conversant Lungs: decrease breath sounds at right lower and mid lung, good air entry on the left. no rhonchi, no crackles, there is some scattered expiratory wheezes. Cardiovascular: Regular rate and rhythm, no murmurs, no gallops, no rubs, no peripheral leg edema Extremities: No digital cyanosis, ischemia or clubbing, no calf muscle tenderness Psych: Alert, oriented to place, person and time labs and chest xray reviewed - Labs CBC & Chem 7: 07/05/17 05:47 07/05/17 14:10 Assessment and Plan (1) Acute respiratory failure with hypoxia Narrative/Plan: due to spontaneous pneumothorax , now controlled with oxygen via nasal canula and s/p chest tube removal assess oxygen requirement before discharge Status: Acute (2) Pneumothorax on right Narrative/Plan: improving but no full expansion of the lungs per CTsurgery , chest tube was removed, reassess chest xray in the morning to assess for reaccumulation of pneumothorax CXR today showed residual hydropneumo Status: Acute (3) Hypotension Status: Resolved (4) Hyperkalemia Status: Resolved (5) DVT prophylaxis Narrative/Plan: on lovenox and mechanical anticoagulation Status: Acute (6) COPD (chronic obstructive pulmonary disease) Narrative/Plan: with emphysematous changes which most likely led to spontaneous pneumothorax not on medications at home now on Duonebs and symbicort patient quit smoking years ago Status: Chronic (7) History of bilateral breast cancer Status: Chronic (8) History of bilateral mastectomy Status: Chronic Plan: s/p chest tube removal today follow up with repeat cxr in the morning , if no reaccumulation of pneumothorax and patient stable, then will consider discharge home in AM
[2017-07-06] MEDS: PROMETHAZINE INJ 6.25 MG in SODIUM CHLORIDE 0.9% 50 ML IVPB PRN (22:36)
[2017-07-07] MEDS: IPRATROPIUM-ALBUTEROL 3 ML NEB INHALATION SCH ×4 (03:51→15:30)
[2017-07-07 06:48] LABS: CH 29.7; CHCM 31.8; HCT 41.4 % (34.0-46.0); HDW 2.22; HGB 12.7 gm/dL (11.4-16.0); MCH 28.9 pg (25.0-35.0); MCHC 30.8 g/dL (31.0-37.0); MCV 93.8 fL (80.0-100.0); RBC 4.41 m/uL (3.80-5.40); WBC 8.5 k/uL (3.8-10.6)
[2017-07-07] MEDS: SODIUM CHLORIDE 0.9% 1,000 ML IV SCH (06:55)
[2017-07-07 06:57] LABS: Anion Gap 7 mmol/L; Blood Urea Nitrogen 7 mg/dL (7-17); Calcium 9.3 mg/dL (8.4-10.2); Carbon Dioxide 32 mmol/L (22-30); Chloride 97 mmol/L (98-107); Glucose 98 mg/dL (74-99); Non-African American GFR(MDRD) >60 (>60 ml/min/1.73 sqM); Potassium 4.7 mmol/L (3.5-5.1); Sodium 136 mmol/L (137-145)
[2017-07-07] MEDS: ENOXAPARIN 40 MG/0.4 ML SYRINGE SQ SCH (08:43)
--- NOTE | 2017-07-07 08:52 | P.PN ---
Subjective Principal diagnosis: Spontaneous right pneumothorax, COPD (chronic obstructive pulmonary disease), history of bilateral breast cancer with bilateral mastectomy and breast reconstruction. Status post day #4 placement of right thoracostomy tube. She is sitting up to the bedside tolerating a small amount of her breakfast. She remains complaining of nausea and reports one emesis last night. No acute distress. Her bowels did move post lactulose treatment. Her oxygen has been weaned down to 2 L nasal cannula and her current oxygen saturation is 92%. Her chest tube was removed yesterday and her dressing remains clean dry and intact. She reports that she feels better today than yesterday. Objective - Vital Signs Vital signs: Vital Signs Temp 97.9 F 07/07/17 04:00 Pulse 78 07/07/17 04:00 Resp 18 07/07/17 04:00 BP 120/80 07/07/17 04:00 Pulse Ox 92 L 07/07/17 04:00 Intake & Output 07/06/17 07/07/17 07/07/17 18:59 06:59 18:59 Intake Total 780 Output Total 0 500 Balance 780 -500 Weight 54.3 kg Intake: IV 440 Sodium Chloride 0.9% 1, 440 000 ml @ 20 mls/hr IV . Q24H [facility] Rx#:[id number] Intake, IV Titration 100 Amount ACETAMINOPHEN IV (For NPO 100 ) 1,000 mg In Empty Bag 1 bag @ 400 mls/hr IVPB Q6H [facility] Rx#:[id number] Oral 240 Output: Chest Tube Drainage 0 Chest Tube Right 0 Urine 500 Other: Voiding Method Toilet # Voids 0 1 # Bowel Movements 0 0 - Constitutional General appearance: Present: cooperative, no acute distress, thin - EENT Eyes: Present: PERRLA, normal appearance ENT: Present: hearing grossly normal - Neck Details: No JVD present, no lymphadenopathy. Neck: Present: normal ROM - Respiratory Details: Expiratory wheezes to her right lobes, diminished to her bilateral bases, left lung sounds are clear. Respirations are symmetrical and nonlabored. She is achieving 500-750 mL on her incentive spirometry. Recurrent oxygen saturation are 92% on 2 L nasal cannula. - Cardiovascular Details: Regular rate and rhythm. S1 and S2 present, negative for S3, gallop or murmur. Remote telemetry showing normal sinus rhythm heart rate 85. No edema present. Sequential compression devices in place to bilateral lower extremities. - Gastrointestinal Gastrointestinal Comment(s): Abdomen is soft, nontender and nondistended. Positive bowel sounds to all 4 abdominal quadrants. Bowel movement yesterday. She is tolerating an oral diet. - Genitourinary Genitourinary Comment(s): Adequate urine output. Clear yellow urine. - Integumentary Integumentary Comment(s): Dressing to chest tube insertion site clean and dry and intact. No drainage noted. Integumentary: Present: normal, normal turgor - Neurologic Neurologic Comment(s): No focal deficits. Neurologic: Present: CNII-XII intact - Musculoskeletal Musculoskeletal: Present: gait normal, strength equal bilaterally - Psychiatric Psychiatric: Present: A&O x's 3, appropriate affect, intact judgment & insight - Allied health notes Allied health notes reviewed: nursing - Labs CBC & Chem 7: 07/07/17 05:48 07/07/17 05:48 Labs: Abnormal Lab Results - Last 24 Hours (Table) 07/07/17 07/07/17 Range/Units 05:48 05:48 MCHC 30.8 L (31.0-37.0) g/dL Sodium 136 L (137-145) mmol/L Chloride 97 L (98-107) mmol/L Carbon Dioxide 32 H (22-30) mmol/L Creatinine 0.40 L (0.52-1.04) mg/dL Assessment and Plan (1) History of bilateral breast cancer Status: Chronic (2) COPD (chronic obstructive pulmonary disease) Status: Chronic (3) History of bilateral mastectomy Status: Chronic (4) Hypertension Status: Acute (5) Pneumothorax on right Status: Acute Plan: 1. Right chest tube was removed yesterday, she has been given a prescription for a 2 view chest x-ray for tomorrow 07/08/2017 prior to following up with Dr. Hernandez in the office. 2. Continue to encourage use of her incentive spirometry every hour while awake. 3. Wean oxygen as tolerated to keep her oxygen saturation is greater than 92%. 4. Pulmonary recommendations per Dr. Henderson. 5. DVT and GI prophylaxis. 6. May discharge home when okay with primary care service. Time with Patient: Greater than 30
[2017-07-07] MEDS: SYMBICORT 160-4.5 MCG INHALER INHALATION SCH (08:58)
--- NOTE | 2017-07-07 10:32 | XR ---
EXAMINATION TYPE: XR chest 1V portable DATE OF EXAM: 07/07/2017 COMPARISON: 07/06/2017 HISTORY: Follow-up chest tube removal TECHNIQUE: Single frontal view of the chest is obtained. FINDINGS: There is a persistent small right-sided hydropneumothorax measuring 15-20%. Recent centime ters changes noted. I suggest previous surgery involving the right lung apex. Biapical pleural thicke gordon noted. Linear changes in the right upper lobe suggestive of scar or atelectasis. Hypertrophic ch chris of the spine. IMPRESSION: 1. Stable right-sided hydropneumothorax measuring 15% unchanged from the previous exam. 2. Diffuse COPD.
[2017-07-07] MEDS: ACETAMINOPHEN IV (For NPO) 1,000 MG in EMPTY BAG 1 BAG IVPB SCH (10:50)
--- NOTE | 2017-07-07 10:51 | P.PN ---
Subjective Progress note dated 07/06/2017 This is a 56-year-old female with history of bone spontaneous pneumothorax. This is her second spontaneous pneumothorax. Yesterday and today we checked for an air leak. She did not have one. Today her chest tube will be removed. She looks pretty comfortable. Could go home today. No major complaints or issues. The patient did have a previous pneumothorax 10 years ago. She is a heavy smoker. Progress note dated 07/07/2017 56-year-old female with a spontaneous pneumothorax. It was on the right side. The patient is a has had previous pneumothorax. She did have a chest tube at that time. The chest tube had been has been removed. From my perspective she could be discharged home. She may have to go home on oxygen therapy. She does have underlying COPD. The patient looks much improved. Really anxious to get out here. She has a persistent small 10-15% hydropneumothorax on the right. Thoracic surgery is seeing her. She denies any complaints including chest pain chest pressure or shortness of breath cough wheezing phlegm production or hemoptysis. No fever no chills. No nausea vomiting or diarrhea. Objective - Vital Signs Vital signs: Vital Signs Temp 97.2 F L 07/07/17 08:00 Pulse 84 07/07/17 09:14 Resp 18 07/07/17 08:00 BP 124/87 07/07/17 08:00 Pulse Ox 90 L 07/07/17 08:00 Intake & Output 07/06/17 07/07/17 07/07/17 18:59 06:59 18:59 Intake Total 780 320 Output Total 0 500 Balance 780 -500 320 Weight 54.3 kg Intake: IV 440 320 Sodium Chloride 0.9% 1, 440 320 000 ml @ 20 mls/hr IV . Q24H [facility] Rx#:[id number] Intake, IV Titration 100 Amount ACETAMINOPHEN IV (For NPO 100 ) 1,000 mg In Empty Bag 1 bag @ 400 mls/hr IVPB Q6H [facility] Rx#:[id number] Oral 240 Output: Chest Tube Drainage 0 Chest Tube Right 0 Urine 500 Other: Voiding Method Toilet # Voids 0 1 # Bowel Movements 0 0 - Exam No acute distress, oriented 3. HEENT examination is grossly unremarkable. Mucous membranes are moist. No oral lesions. Neck supple. Full range of motion. No adenopathy or thyromegaly. Cardiovascular examination reveals regular rhythm rate. Normal. No S3-S4 or murmur. Lungs reveal clear but somewhat diminished breath sounds. No wheezes or rhonchi. No crackles. Abdomen soft bowel sounds are heard. Extremities are intact. No cyanosis clubbing or edema. Skin without rash. Neurologic examination is nonfocal. - Labs CBC & Chem 7: 07/07/17 05:48 07/07/17 05:48 Labs: Abnormal Lab Results - Last 24 Hours (Table) 07/07/17 07/07/17 Range/Units 05:48 05:48 MCHC 30.8 L (31.0-37.0) g/dL Sodium 136 L (137-145) mmol/L Chloride 97 L (98-107) mmol/L Carbon Dioxide 32 H (22-30) mmol/L Creatinine 0.40 L (0.52-1.04) mg/dL Assessment and Plan (1) Breast CA Status: Acute (2) Breast cancer Status: Acute (3) COPD (chronic obstructive pulmonary disease) Status: Chronic (4) History of bilateral breast cancer Status: Chronic (5) History of bilateral mastectomy Status: Chronic (6) Pneumothorax on right Status: Acute Plan: Plan dated 07/04/2017 The patient's medications were reviewed. Her chest x-ray and CAT scan reviewed. The patient likely has underlying COPD. She did have a previous pneumothorax 10 years ago. She does not smoke currently. We'll make sure she is on appropriate medications. We'll continue to follow. Her proper medication should include some updrafts and Symbicort. Plan dated 07/06/2017 Marbin Delgadillo will remove the chest tube today. His get a repeat a chest x-ray at 12 :30. If her lung remains expanded, from my perspective she could be discharged home. Should follow-up in the pulmonary office. No additional recommendations are made. Plan dated 07/07/2017 The patient's doing well. Could be discharged home. Chest tube was removed yesterday. A small persistent hydropneumothorax is seen on the right side. She does have significant underlying COPD. I'm hoping thoracic surgery will agree to let her go. We'll follow up with her in the office. I did give her my card. She'll need a PFT and a 6 minute walk distance. She likely will also get an alpha-1 antitrypsin screen. Additional recommendations and suggestions are forthcoming. Time with Patient: Less than 30
[2017-07-07 13:20] VITALS: TEMP 97.3
[2017-07-07 16:18] VITALS: BP 123/89; PULSE 82
--- NOTE | 2017-07-07 17:40 | P.DS ---
Providers Date of admission: 07/04/17 00:57 Expected date of discharge: 07/07/17 Attending physician: Josue Talavera MD Consults: 07/04/17 00:57 Consult Physician Urgent Consulting Provider: Abe Henderson Consult Reason/Comments: pneumothorax Do you want consulting provider notified?: Already Contacted 07/04/17 01:01 Consult Physician Urgent Consulting Provider: Baline Mar Consult Reason/Comments: pneumothorax Do you want consulting provider notified?: Yes Primary care physician: Stated None - Discharge Diagnosis(es) (1) Acute respiratory failure with hypoxia Current Visit: Yes Status: Acute (2) Pneumothorax on right Current Visit: Yes Status: Acute Priority: Medium (3) Hypotension Current Visit: Yes Status: Resolved (4) Hyperkalemia Current Visit: Yes Status: Resolved (5) DVT prophylaxis Current Visit: Yes Status: Acute (6) COPD (chronic obstructive pulmonary disease) Current Visit: Yes Status: Chronic (7) History of bilateral breast cancer Current Visit: Yes Status: Chronic (8) History of bilateral mastectomy Current Visit: Yes Status: Chronic Hospital Course: 56-year-old female with past medical history of breast cancer with bilateral mastectomy, history of COPD. Patient presented due to sudden onset of acute shortness of breath and chest pain she was found to have acute spontaneous pneumothorax for which chest tube was inserted patient's management was also supervised by cardiothoracic surgery was assisted with managing the chest tube. Most recent chest x-ray did not show full expansion of the right lung with a residual of 10-15% hydropneumothorax. However patient was minimally symptomatic with resting oxygen on room air above 92% however she drops her oxygen saturation when she ambulates down to 75% on room air. This was resolved with supplemental oxygen of 2 L per minute through nasal cannula. Case was discussed with cardiothoracic surgery and pulmonary patient was observed for 2 days without chest tube repeat chest x-ray showed stable residual hydropneumothorax of 10-15% . After further counseling patient agreed on following up outpatient, she was discharged with supplemental oxygen to be used 24 , she was instructed to return to the ED with symptoms of chest pain and shortness of breath recurs. Cardiothoracic surgery and pulmonary services both cleared the patient for discharge with close monitoring serial chest x-rays on Saturday and Saturday and close follow-up with cardiothoracic surgery. Pulmonary is planning on performing pulmonary function test as outpatient along with further testing to rule out other underlying conditions including but not limited to alpha-1 antitrypsin deficiency. Patient was seen and examined today she reports no symptoms of shortness of breath or chest pain while at rest, patient tolerating diet and very pleasant. Upon ambulation with supplemental oxygen of 2 L/m she was able to maintain her oxygen saturation above 92%. Constitutional: vital signs stable, Not in acute distress, pleasant, conversant Lungs: Good breath sounds bilaterally, slightly decreased breath sounds at right lung base, normal respiratory effort no use of accessory muscles Cardiovascular: Regular rate and rhythm, no murmurs, no gallops, no rubs, no peripheral edema Extremities: No digital cyanosis or clubbing, peripheral pulses palpable and equal over bilateral radial arteries and dorsalis pedis artery, no calf muscle tenderness Psych: Alert, oriented to place, person and time More than 35 minutes were spent discharging this patient, and more than 50% of the time was spent in counseling the patient and family and in coordinating care. Plan - Discharge Summary New Discharge Prescriptions: New Budesonide-Formot 160-4.5 Mcg [Symbicort 160-4.5 Mcg Inhaler] 2 puff INHALATION RT-BID #120 puff Discharge Medication List Budesonide-Formot 160-4.5 Mcg [Symbicort 160-4.5 Mcg Inhaler] 2 puff INHALATION RT-BID #120 puff 07/07/17 [Rx] Follow up Appointment(s)/Referral(s): Carlos Hernandez MD [STAFF PHYSICIAN] - 07/08/17 4:30 pm (Please follow-up with Dr. Hernandez in the office with a chest x-ray prior to the visit.) Abe Henderson DO [Doctor of Osteopathic Medicine] - 1 Week None,Stated [Primary Care Provider] - 1-2 days Ambulatory/Diagnostic Orders: XR chest 2V [RAD.AMB] Location: Determined By Patient Patient Instructions/Handouts: Spontaneous Pneumothorax (DC), Using Oxygen at Home (DC) Activity/Diet/Wound Care/Special Instructions: Please leave right chest tube site dressing in place until 07/08/2017. Dr. Hernandez will remove the dressing in the office. Care Plan Goals (MU): home oxygen 2 LPM 24 hours a day Discharge Disposition: HOME SELF-CARE
[2017-07-07] MEDS ORDERED: ACETAMINOPHEN TAB 500 MG TAB PO PRN (20:00)
== END 2017-07-07 20:20 | disposition home or self-care (01) | DRG 199 ==
LOC: EC 22:06 → 6SEL 07-04 00:57
PROVIDERS: ADMIT Internal Medicine; ATTEND Internal Medicine
PROC: 0W9930Z Drainage of Right Pleural Cavity with Drainage Device, Percutaneous Approach (ICD-10-PCS; principal; 2017-07-04)
DX: J93.83 Other pneumothorax (principal); J96.01 Acute respiratory failure with hypoxia; J44.1 Chronic obstructive pulmonary disease with (acute) exacerbation; I95.9 Hypotension, unspecified; E87.5 Hyperkalemia; K59.00 Constipation, unspecified; I10 Essential (primary) hypertension; Z87.891 Personal history of nicotine dependence; Z90.13 Acquired absence of bilateral breasts and nipples; Z85.3 Personal history of malignant neoplasm of breast
CPT/HCPCS: 32551; 36415; 71010; 71020; 71250; 80048; 80051; 80053; 82550; 82553; 83880; 84484; 85025; 85027; 85379; 85610; 85730; 93005; 94640; 96374; 96375; 99285

== ENCOUNTER 2018-04-05 18:37 | Inpatient (IN) | payer OTHER ==
[2018-04-05] MEDS ORDERED: IPRATROPIUM-ALBUTEROL 3 ML NEB INHALATION STA (18:57)
[2018-04-05] MEDS ORDERED: methylPREDNISolone SOD SUCCI 125 MG/2 ML VIAL IV STA (18:57)
[2018-04-05] MEDS ORDERED: SODIUM CHLORIDE 0.9% 1,000 ML IV STA ×2 (18:57)
[2018-04-05] MEDS ORDERED: LEVOFLOXACIN 750MG-D5W PMX 750 MG in DEXTROSE/WATER 1 150ML.BAG IVPB STA (18:57)
[2018-04-05] MEDS ORDERED: KETOROLAC 30 MG/ML 1 ML VIAL IVP STA (18:59)
[2018-04-05] MEDS ORDERED: ACETAMINOPHEN TAB 500 MG TAB PO STA (18:59)
--- NOTE | 2018-04-05 19:07 | ED ---
SOB HPI - General Chief Complaint: Shortness of Breath Stated Complaint: Diff Breathing, leg swelling Time Seen by Provider: 04/05/18 18:52 Source: patient Mode of arrival: wheelchair Limitations: physical limitation - History of Present Illness Initial Comments: This 57-year-old white female presents with a complaint of some shortness of breath. She relates that it started yesterday. She has had a cough with greenish production as well. She has occasional pain in her chest when she coughs. She's had some wheezing as well. She does have advanced COPD and sees Dr. Henderson from pulmonology in this regard. She does take breathing treatments 4 times a day and has been doing this with limited relief. She took some Tylenol earlier today. She is unsure as to whether or not she had a temperature but did feel feverish. She does complain of some slight swelling to her right leg in the calf region with some slight soreness as well. She denies any other complaints or modifying factors. - Related Data Home Medications Medication Instructions Recorded Confirmed Albuterol Inhaler [Ventolin Hfa 1 - 2 puff INHALATION RT-Q6H PRN 04/05/18 Inhaler] Albuterol Nebulized [Ventolin 2.5 mg INHALATION Q4H 04/05/18 04/05/18 Nebulized] Ipratropium Nebulized [Atrovent 0.5 mg INHALATION Q4HR 04/05/18 04/05/18 Nebulized] predniSONE 5 mg PO DAILY 04/05/18 04/05/18 Previous Rx's Medication Instructions Recorded Budesonide-Formot 160-4.5 Mcg 2 puff INHALATION RT-BID #120 puff 07/07/17 [Symbicort 160-4.5 Mcg Inhaler] Allergies Allergy/AdvReac Type Severity Reaction Status Date / Time No Known Allergies Allergy Verified 07/03/17 22:54 Review of Systems ROS Statement: Those systems with pertinent positive or pertinent negative responses have been documented in the HPI. ROS Other: All systems not noted in ROS Statement are negative. Past Medical History Past Medical History: Cancer, COPD, Pneumonia Additional Past Medical History / Comment(s): History of spontaneous pneumothorax in 2006, breast cancer in 2004. History of Any Multi-Drug Resistant Organisms: None Reported Past Surgical History: Ablation, Breast Surgery Additional Past Surgical History / Comment(s): mastectomy with bilateral breast reconstruction in 2004, uterine ablation in 2009, spontaneous pneumothorax in 2006 with wedge resection and mechanical pleurodesis. Past Anesthesia/Blood Transfusion Reactions: No Reported Reaction Past Psychological History: No Psychological Hx Reported Smoking Status: Former smoker Past Alcohol Use History: Occasional Past Drug Use History: None Reported - Past Family History Mother Family Medical History: Diabetes Mellitus, Hypertension Additional Family Medical History / Comment(s): mother is 84 Father Family Medical History: COPD Additional Family Medical History / Comment(s): lung cancer Sister(s) Additional Family Medical History / Comment(s): She has 4 sisters, 1 sister with history of breast cancer, and thyroid disorder, 1 sister with history of rheumatoid arthritis, and another sister with history of lupus. Brother(s) Additional Family Medical History / Comment(s): She has 3 brothers, 1 brother has diabetes mellitus type 2. General Exam - General Exam Comments Initial Comments: GENERAL: The patient is well nourished and well hydrated. VITAL SIGNS: Heart rate, blood pressure, respiratory rate reviewed as recorded in nurse's notes. EYES: Pupils are round and reactive. Extraocular movements are intact. No conjunctival / lid redness or swelling. ENT: No external evidence of injury, swelling, or ecchymosis. Airway is patent. Throat is clear. NECK: Nontender. No swelling or evidence of injury. No subcutaneous emphysema. Trachea is midline. No thyroid mass. HEART: Tachycardic heart rate. Good peripheral pulses. LUNGS/CHEST: Diminished breath sounds noted bilaterally. No ecchymosis, subcutaneous emphysema, or tenderness. ABDOMEN: Abdomen soft without tenderness. No palpable masses or organomegaly. No peritoneal signs. No abdominal wall swelling or ecchymosis. EXTREMITIES: There may be some very minimal swelling noted to the right lower leg. There is no tenderness identified. Normal muscle tone and function. No thoracolumbar tenderness. NEUROLOGIC: Sensation is grossly intact. Cranial nerve exam reveals face is symmetrical, tongue is midline, speech is clear. SKIN: No abrasions or ecchymosis is noted. No induration or masses noted. PSYCHIATRIC: Alert and oriented. Appropriate behavior and judgment. Limitations: physical limitation Course Vital Signs 04/05/18 04/05/18 04/05/18 18:45 19:07 19:50 Temperature 101.1 F H Pulse Rate 121 H 110 H Respiratory 20 16 Rate Blood Pressure 173/99 O2 Sat by Pulse 94 L Oximetry 04/05/18 04/05/18 04/05/18 20:00 20:23 20:56 Temperature 99.6 F Pulse Rate 110 H 112 H 115 H Respiratory 20 20 Rate Blood Pressure 136/84 129/79 O2 Sat by Pulse 93 L 94 L Oximetry Medical Decision Making - Medical Decision Making The patient was seen and examined. All diagnostics are reviewed. An IV is started and patient is hydrated. She is tachycardic and has a fever. She also receives some Tylenol and Toradol for her fever. The patient receives a DuoNeb breathing treatment as well as some Solu-Medrol. The EKG shows a sinus tachycardia at a rate of 116. There is no acute ST-T wave changes noted. The GA intervals 136, QRS duration is 94, and the QTC intervals 419. Levaquin is also ordered intravenously. The chest x-ray does show signs of COPD but no definite pneumonia. The laboratories shows the white blood cell count at 22,000 , a low sodium, a low chloride. The patient is feeling somewhat better on recheck but it is felt as though she would require admission to the hospital for further treatment. She likely does have a bronchitis and COPD exacerbation. Case is discussed with Dr. Resendiz and he is agreeable with admission. The right lower extremity venous Doppler eventually came back negative for any DVT. - Lab Data Result diagrams: 04/05/18 19:05 04/05/18 19:05 Lab Results 04/05/18 04/05/18 04/05/18 Range/Units 19:05 19:05 19:05 WBC 22.1 H (3.8-10.6) k/uL RBC 4.59 (3.80-5.40) m/uL Hgb 13.6 (11.4-16.0) gm/dL Hct 41.4 (34.0-46.0) % MCV 90.2 (80.0-100.0) fL MCH 29.5 (25.0-35.0) pg MCHC 32.7 (31.0-37.0) g/dL RDW 12.9 (11.5-15.5) % Plt Count 283 (150-450) k/uL Neutrophils % 91 % Lymphocytes % 4 % Monocytes % 4 % Eosinophils % 1 % Basophils % 0 % Neutrophils # 20.1 H (1.3-7.7) k/uL Lymphocytes # 0.9 L (1.0-4.8) k/uL Monocytes # 0.8 (0-1.0) k/uL Eosinophils # 0.2 (0-0.7) k/uL Basophils # 0.1 (0-0.2) k/uL PT (9.0-12.0) sec INR (<1.2) APTT (22.0-30.0) sec D-Dimer (<0.60) mg/L FEU Sodium 133 L (137-145) mmol/L Potassium 4.7 (3.5-5.1) mmol/L Chloride 92 L (98-107) mmol/L Carbon Dioxide 32 H (22-30) mmol/L Anion Gap 9 mmol/L BUN 7 (7-17) mg/dL Creatinine 0.50 L (0.52-1.04) mg/dL Est GFR (CKD-EPI)AfAm >90 (>60 ml/min/1.73 sqM) Est GFR (CKD-EPI)NonAf >90 (>60 ml/min/1.73 sqM) Glucose 115 H (74-99) mg/dL Calcium 9.8 (8.4-10.2) mg/dL Total Bilirubin 1.0 (0.2-1.3) mg/dL AST 37 H (14-36) U/L ALT 36 (9-52) U/L Alkaline Phosphatase 89 (38-126) U/L Total Creatine Kinase 27 L (30-135) U/L CK-MB (CK-2) 0.7 (0.0-2.4) ng/mL CK-MB (CK-2) Rel Index 2.6 Troponin I <0.012 (0.000-0.034) ng/mL NT-Pro-B Natriuret Pep pg/mL Total Protein 7.1 (6.3-8.2) g/dL Albumin 4.2 (3.5-5.0) g/dL Urine Color Urine Appearance (Clear) Urine pH (5.0-8.0) Ur Specific [place] (1.001-1.035) Urine Protein (Negative) Urine Glucose (UA) (Negative) Urine Ketones (Negative) Urine Blood (Negative) Urine Nitrite (Negative) Urine Bilirubin (Negative) Urine Urobilinogen (<2.0) mg/dL Ur Leukocyte Esterase (Negative) Influenza Type A RNA (Not Detectd) Influenza Type B (PCR) (Not Detectd) 04/05/18 04/05/18 04/05/18 Range/Units 19:05 19:05 19:18 WBC (3.8-10.6) k/uL RBC (3.80-5.40) m/uL Hgb (11.4-16.0) gm/dL Hct (34.0-46.0) % MCV (80.0-100.0) fL MCH (25.0-35.0) pg MCHC (31.0-37.0) g/dL RDW (11.5-15.5) % Plt Count (150-450) k/uL Neutrophils % % Lymphocytes % % Monocytes % % Eosinophils % % Basophils % % Neutrophils # (1.3-7.7) k/uL Lymphocytes # (1.0-4.8) k/uL Monocytes # (0-1.0) k/uL Eosinophils # (0-0.7) k/uL Basophils # (0-0.2) k/uL PT 9.6 (9.0-12.0) sec INR 1.0 (<1.2) APTT 23.1 (22.0-30.0) sec D-Dimer 0.40 (<0.60) mg/L FEU Sodium (137-145) mmol/L Potassium (3.5-5.1) mmol/L Chloride (98-107) mmol/L Carbon Dioxide (22-30) mmol/L Anion Gap mmol/L BUN (7-17) mg/dL Creatinine (0.52-1.04) mg/dL Est GFR (CKD-EPI)AfAm (>60 ml/min/1.73 sqM) Est GFR (CKD-EPI)NonAf (>60 ml/min/1.73 sqM) Glucose (74-99) mg/dL Calcium (8.4-10.2) mg/dL Total Bilirubin (0.2-1.3) mg/dL AST (14-36) U/L ALT (9-52) U/L Alkaline Phosphatase (38-126) U/L Total Creatine Kinase (30-135) U/L CK-MB (CK-2) (0.0-2.4) ng/mL CK-MB (CK-2) Rel Index Troponin I (0.000-0.034) ng/mL NT-Pro-B Natriuret Pep 149 pg/mL Total Protein (6.3-8.2) g/dL Albumin (3.5-5.0) g/dL Urine Color Urine Appearance (Clear) Urine pH (5.0-8.0) Ur Specific [place] (1.001-1.035) Urine Protein (Negative) Urine Glucose (UA) (Negative) Urine Ketones (Negative) Urine Blood (Negative) Urine Nitrite (Negative) Urine Bilirubin (Negative) Urine Urobilinogen (<2.0) mg/dL Ur Leukocyte Esterase (Negative) Influenza Type A RNA Not Detected (Not Detectd) Influenza Type B (PCR) Not Detected (Not Detectd) 04/05/18 Range/Units 20:13 WBC (3.8-10.6) k/uL RBC (3.80-5.40) m/uL Hgb (11.4-16.0) gm/dL Hct (34.0-46.0) % MCV (80.0-100.0) fL MCH (25.0-35.0) pg MCHC (31.0-37.0) g/dL RDW (11.5-15.5) % Plt Count (150-450) k/uL Neutrophils % % Lymphocytes % % Monocytes % % Eosinophils % % Basophils % % Neutrophils # (1.3-7.7) k/uL Lymphocytes # (1.0-4.8) k/uL Monocytes # (0-1.0) k/uL Eosinophils # (0-0.7) k/uL Basophils # (0-0.2) k/uL PT (9.0-12.0) sec INR (<1.2) APTT (22.0-30.0) sec D-Dimer (<0.60) mg/L FEU Sodium (137-145) mmol/L Potassium (3.5-5.1) mmol/L Chloride (98-107) mmol/L Carbon Dioxide (22-30) mmol/L Anion Gap mmol/L BUN (7-17) mg/dL Creatinine (0.52-1.04) mg/dL Est GFR (CKD-EPI)AfAm (>60 ml/min/1.73 sqM) Est GFR (CKD-EPI)NonAf (>60 ml/min/1.73 sqM) Glucose (74-99) mg/dL Calcium (8.4-10.2) mg/dL Total Bilirubin (0.2-1.3) mg/dL AST (14-36) U/L ALT (9-52) U/L Alkaline Phosphatase (38-126) U/L Total Creatine Kinase (30-135) U/L CK-MB (CK-2) (0.0-2.4) ng/mL CK-MB (CK-2) Rel Index Troponin I (0.000-0.034) ng/mL NT-Pro-B Natriuret Pep pg/mL Total Protein (6.3-8.2) g/dL Albumin (3.5-5.0) g/dL Urine Color Yellow Urine Appearance Clear (Clear) Urine pH 8.5 H (5.0-8.0) Ur Specific [place] 1.011 (1.001-1.035) Urine Protein Trace H (Negative) Urine Glucose (UA) Negative (Negative) Urine Ketones Negative (Negative) Urine Blood Negative (Negative) Urine Nitrite Negative (Negative) Urine Bilirubin Negative (Negative) Urine Urobilinogen 2.0 (<2.0) mg/dL Ur Leukocyte Esterase Negative (Negative) Influenza Type A RNA (Not Detectd) Influenza Type B (PCR) (Not Detectd) Disposition Clinical Impression: Acute exacerbation of chronic obstructive airways disease, Dyspnea, Fever, Hypertension, Sinus tachycardia, Hypoxia, Bronchitis, Hypochloremia, Hyponatremia, Leukocytosis, Right leg swelling Disposition: ADMITTED IP TO THIS HOSP Condition: Fair Is patient prescribed a controlled substance at d/c from ED?: No Time of Disposition: 20:22 Decision Date: 04/05/18 Decision Time: 20:22
[2018-04-05 19:18] LABS: Basophils # (A) 0.1 k/uL (0-0.2); Basophils % (A) 0 %; Eosinophils # (A) 0.2 k/uL (0-0.7); Eosinophils % (A) 1 %; HCT 41.4 % (34.0-46.0); HGB 13.6 gm/dL (11.4-16.0); Lymphocytes # (A) 0.9 k/uL (1.0-4.8); Lymphocytes % (A) 4 %; MCH 29.5 pg (25.0-35.0); MCHC 32.7 g/dL (31.0-37.0); MCV 90.2 fL (80.0-100.0); Mean Platelet Volume 7.3; Monocytes # (A) 0.8 k/uL (0-1.0); Monocytes % (A) 4 %; Neutrophils # (A) 20.1 k/uL (1.3-7.7); Neutrophils % (A) 91 %; Platelet Count 283 k/uL (150-450); RBC 4.59 m/uL (3.80-5.40); RDW 12.9 % (11.5-15.5); WBC 22.1 k/uL (3.8-10.6)
[2018-04-05 19:28] LABS: ALT 36 U/L (9-52); AST 37 U/L (14-36); Albumin 4.2 g/dL (3.5-5.0); Alkaline Phosphatase 89 U/L (38-126); Anion Gap 9 mmol/L; Blood Urea Nitrogen 7 mg/dL (7-17); Calcium 9.8 mg/dL (8.4-10.2); Carbon Dioxide 32 mmol/L (22-30); Chloride 92 mmol/L (98-107); Glucose 115 mg/dL (74-99); Sodium 133 mmol/L (137-145); Total Protein 7.1 g/dL (6.3-8.2)
[2018-04-05 19:33] LABS: Creatine Kinase 27 U/L (30-135)
--- NOTE | 2018-04-05 19:36 | XR ---
EXAMINATION TYPE: XR chest 2V DATE OF EXAM: 04/05/2018 COMPARISON: 07/07/2017 HISTORY: Shortness of breath TECHNIQUE: Frontal and lateral views of the chest are obtained. FINDINGS: There is no focal air space opacity, pleural effusion, or pneumothorax seen. Pulmonary hy perinflation represents underlying COPD. Biapical pleural parenchymal scarring is again noted. Bilate ral breast prostheses partially obscure visualization of the lungs on the frontal image. The cardiac silhouette size is within normal limits. The osseous structures are intact. IMPRESSION: Chronic emphysematous changes with no acute cardiopulmonary process.
[2018-04-05 19:41] LABS: D-Dimer 0.4 mg/L FEU (<0.60); Partial Thromboplastin Time 23.1 sec (22.0-30.0); Potassium 4.7 mmol/L (3.5-5.1); Prothrombin Time 9.6 sec (9.0-12.0)
[2018-04-05 19:46] LABS: Creatine Kinase MB 0.7 ng/mL (0.0-2.4); Troponin I <0.012 ng/mL (0.000-0.034)
[2018-04-05 20:39] LABS: Appearance,Urine Clear (Clear); Bilirubin,Urine Negative (Negative); Blood,Urine Negative (Negative); Color,Urine Yellow; Glucose,Urine (UA) Negative (Negative); Ketones,Urine Negative (Negative); Leukocyte Esterase,Urine Negative (Negative); Nitrite,Urine Negative (Negative); PH, Urine 8.5 (5.0-8.0); Protein,Urine Trace (Negative); Specific Gravity,Urine 1.011 (1.001-1.035)
--- NOTE | 2018-04-05 21:12 | US ---
EXAMINATION TYPE: US venous doppler duplex LE RT DATE OF EXAM: 04/05/2018 8:42 PM COMPARISON: NONE CLINICAL HISTORY: Pain. SIDE PERFORMED: Right TECHNIQUE: The lower extremity deep venous system is examined utilizing real time linear array sonog ashley with graded compression, doppler sonography and color-flow sonography. VESSELS IMAGED: External Iliac Vein (EIV) Common Femoral Vein Deep Femoral Vein Greater Saphenous Vein * Femoral Vein Popliteal Vein Small Saphenous Vein * Proximal Calf Veins (* superficial vessels) Grayscale, color doppler, spectral doppler imaging performed of the deep veins of the right lower ext remity. There is normal flow, compressibility, vascular waveforms. Right Leg: Negative for DVT IMPRESSION: No sonographic evidence of deep venous thrombosis within the right lower extremity.
[2018-04-05 22:29] VITALS: BMI 19.5
[2018-04-05 22:55] LABS: Glucose,Whole Blood 120 mg/dL (75-99)
[2018-04-05] MEDS: methylPREDNISolone SOD SUCCI 125 MG/2 ML VIAL IV SCH (23:41)
[2018-04-06] MEDS: methylPREDNISolone SOD SUCCI 125 MG/2 ML VIAL IV SCH ×4 (05:33→23:18)
[2018-04-06 06:59] LABS: Glucose,Whole Blood 114 mg/dL (75-99)
[2018-04-06] MEDS: IPRATROPIUM-ALBUTEROL 3 ML NEB INHALATION PRN ×4 (07:25→20:04)
[2018-04-06] MEDS ORDERED: BUDESONIDE 0.5 MG/2 ML NEBU INHALATION SCH (08:00)
[2018-04-06] MEDS ORDERED: LEVOFLOXACIN 500MG-D5W PMX 500 MG in DEXTROSE/WATER 1 100ML.BAG IVPB SCH (09:00)
[2018-04-06] MEDS: ENOXAPARIN 40 MG/0.4 ML SYRINGE SQ SCH (09:10)
--- NOTE | 2018-04-06 09:55 | P.CNPUL ---
History of Present Illness Consult date: 04/06/18 Reason for consult: dyspnea, cough, COPD, hypoxemia Chief complaint: Shortness of breath History of present illness: Pulmonary consult dated 04/06/2018 57-year-old female well-known to me. She has a history of severe COPD. Thoracic data half or so she complains of increasing shortness of breath cough wheezing chest tightness and chest congestion with yellow-green phlegm production. The patient denied any fever or chills. Did feel warm. Thinks that the heat soda started everything. The patient's on appropriate medications. Has been doing relatively well. I see her on a frequent basis in the office. She has a history of severe COPD a previous history of spontaneous pneumothorax in 2016 this cancer 2004 and a previous episode of pneumonia. She' s also had an ablation as well as a bilateral breast reconstruction. The ablation was a uterine ablation. She's also required a apical bleb resection and mechanical pleurodesis because of the spontaneous pneumothorax. She feels a lot better today than she did yesterday. She has NO KNOWN DRUG ALLERGIES. Review of Systems A 12 point review of system is positive for shortness breath chest tightness wheezing cough chest congestion and yellow green phlegm production. Past Medical History Past Medical History: Cancer, COPD, Pneumonia Additional Past Medical History / Comment(s): History of spontaneous pneumothorax in 2006, breast cancer in 2004. occasional oxygen at home as needed 2 liters nasal cannula History of Any Multi-Drug Resistant Organisms: None Reported Past Surgical History: Ablation, Breast Surgery Additional Past Surgical History / Comment(s): mastectomy with bilateral breast reconstruction in 2004, uterine ablation in 2009, spontaneous pneumothorax in 2006 with wedge resection and mechanical pleurodesis.[email or web address] june 2017 Past Anesthesia/Blood Transfusion Reactions: No Reported Reaction Past Psychological History: No Psychological Hx Reported Smoking Status: Former smoker Past Alcohol Use History: Occasional Past Drug Use History: None Reported - Past Family History Mother Family Medical History: Diabetes Mellitus, Hypertension Additional Family Medical History / Comment(s): mother is 84 Father Family Medical History: COPD Additional Family Medical History / Comment(s): lung cancer Sister(s) Additional Family Medical History / Comment(s): She has 4 sisters, 1 sister with history of breast cancer, and thyroid disorder, 1 sister with history of rheumatoid arthritis, and another sister with history of lupus. Brother(s) Additional Family Medical History / Comment(s): She has 3 brothers, 1 brother has diabetes mellitus type 2. Medications and Allergies Home Medications Medication Instructions Recorded Confirmed Type Budesonide-Formot 160-4.5 Mcg 2 puff INHALATION RT-BID #120 puff 07/07/17 Rx [Symbicort 160-4.5 Mcg Inhaler] Albuterol Inhaler [Ventolin Hfa 1 - 2 puff INHALATION RT-Q6H PRN 04/05/18 History Inhaler] Albuterol Nebulized [Ventolin 2.5 mg INHALATION Q4H 04/05/18 04/05/18 History Nebulized] Ipratropium Nebulized [Atrovent 0.5 mg INHALATION Q4HR 04/05/18 04/05/18 History Nebulized] predniSONE 5 mg PO DAILY 04/05/18 04/05/18 History Allergies Allergy/AdvReac Type Severity Reaction Status Date / Time No Known Allergies Allergy Verified 07/03/17 22:54 Physical Exam Osteopathic Statement: *. No significant issues noted on an osteopathic structural exam other than those noted in the History and Physical/Consult. Vitals: Vital Signs Temp Pulse Pulse Resp BP BP Pulse Ox 04/06/18 07:40 105 H 04/06/18 07:26 107 H 04/06/18 05:30 98.1 F 86 18 112/71 96 04/05/18 21:34 98.9 F 109 H 20 128/82 93 L 04/05/18 21:30 98 F 118 H 18 137/82 92 L 04/05/18 20:56 99.6 F 115 H 20 129/79 94 L 04/05/18 20:23 112 H 20 136/84 93 L 04/05/18 20:00 110 H 04/05/18 19:50 110 H 04/05/18 19:07 16 04/05/18 18:45 101.1 F H 121 H 20 173/99 94 L Intake and Output 04/05/18 04/06/18 04/06/18 22:59 06:59 14:59 Intake Total 250 600 Balance 250 600 Intake: Intake, IV Titration 600 Amount Sodium Chloride 0.9% 1, 600 000 ml @ 100 mls/hr IV . Q10H STA Rx#:[id number] Oral 250 Other: Voiding Method Toilet Toilet # Voids 1 1 Weight 51.71 kg No acute distress, oriented 3. HEENT examination is grossly unremarkable. Mucous membranes are moist. No oral lesions. Neck supple. Full range of motion. No adenopathy thyromegaly or neck vein distention. Cardiovascular examination reveals regular rhythm rate. S1-S2 normal. No S3 or S4. No discernible murmur noted. Lungs reveal diffuse bilateral rhonchi and wheezes. Breath sounds are diminished. Prolongation on forced maneuver. Breath sounds are equal bilaterally. They are diminished throughout though. Abdomen soft bowel sounds are heard. No masses or tenderness. Extremities are intact. No cyanosis clubbing or edema. Skin is without rash or lesion. Neurologic examination is brief but nonfocal. Results - Laboratory Findings CBC and BMP: 04/05/18 19:05 04/05/18 19:05 PT/INR, D-dimer PT 9.6 sec (9.0-12.0) 04/05/18 19:05 INR 1.0 (<1.2) 04/05/18 19:05 D-Dimer 0.40 mg/L FEU (<0.60) 04/05/18 19:05 Abnormal lab findings: Abnormal Labs 04/05/18 04/05/18 04/05/18 19:05 19:05 19:05 WBC 22.1 H Neutrophils # 20.1 H Lymphocytes # 0.9 L Sodium 133 L Chloride 92 L Carbon Dioxide 32 H Creatinine 0.50 L Glucose 115 H POC Glucose (mg/dL) AST 37 H Total Creatine Kinase 27 L Urine pH Urine Protein 04/05/18 04/05/18 04/06/18 20:13 22:53 06:58 WBC Neutrophils # Lymphocytes # Sodium Chloride Carbon Dioxide Creatinine Glucose POC Glucose (mg/dL) 120 H 114 H AST Total Creatine Kinase Urine pH 8.5 H Urine Protein Trace H - Diagnostic Findings Chest x-ray: report reviewed (Chest x-ray labs and medications are all reviewed. ), image reviewed U/S of Legs: report reviewed, image reviewed Assessment and Plan Assessment: Assessment COPD exacerbation, complicated by purulent tracheobronchitis History of pneumonia History of breast cancer Previous history of mastectomy with bilateral breast reconstruction Status post spontaneous pneumothorax with apical bleb resection and mechanical pleurodesis Status post uterine ablation Previous history of heavy tobacco use Plan: Plan dated 04/06/2018 The patient's medications labs and x-rays all reviewed. We'll make sure she is on appropriate medications. Chest x-ray shows no evidence of infiltrate. Doppler of the leg was negative for DVT. We'll continue to follow. Prognosis is guarded. She does have quite severe COPD. Time with Patient: Greater than 30
[2018-04-06] MEDS: BUDESONIDE 0.5 MG/2 ML NEBU INHALATION SCH ×2 (11:11→20:04)
[2018-04-06 16:58] LABS: Glucose,Whole Blood 113 mg/dL (75-99)
[2018-04-06] MEDS: INSULIN ASPART 100 UNIT/ML 1 ML 10 ML VIAL SQ SCH ×2 (17:19→20:34)
--- NOTE | 2018-04-06 19:50 | HP ---
HISTORY AND PHYSICAL DATE OF SERVICE: 04/06/2018 CHIEF COMPLAINT: Shortness of breath. HISTORY OF PRESENT ILLNESS: This 57-year-old woman with a past medical history of multiple medical problems including COPD, history of pneumonia, spontaneous pneumothorax, history of breast surgery being followed by Dr. Henderson in the outpatient setting was complaining of shortness of breath for the last 2 days. Shortness of breath was increasing with greenish sputum and the patient came to [facility] and admitted for further evaluation and treatment. The chest x-ray showed no evidence of any pneumonia on presentation and the patient also had a venous Doppler on admission which showed no evidence of any DVT. There is no history of fever, rigors or chills. No history of headache, loss of consciousness or seizures at this time. PAST MEDICAL HISTORY: History of COPD, pneumonia, spontaneous pneumothorax, history of breast cancer, ablation. MEDICATIONS ARE: 1. DuoNeb q.i.d. 2. Symbicort 2 puffs b.i.d. 3. Prednisone 5 mg daily. 4. Ventolin 2.5 q.4h p.r.n. 5. Ventolin HFA 1 to 2 q.4h p.r.n. ALLERGIES: None. FAMILY HISTORY: Family history of diabetes and hypertension. SOCIAL HISTORY: Previous history of smoking. Occasional alcohol intake. REVIEW OF SYSTEMS: ENT: No diminished vision. No diminished vision. Cardiovascular: No angina or palpitations. Respirations: As mentioned earlier. GI no nausea or vomiting. no dysuria. Nervous system: No numbness, weakness. Allergy/Immunology: No asthma or hayfever. Musculoskeletal as mentioned earlier. HEMATOLOGY/ONCOLOGY: No history of anemia. Endocrine: No history of anemia. Constitutional: As mentioned earlier. DERMATOLOGY: Negative. Rheumatology: Negative. Psychiatric: As mentioned earlier. EXAMINATION: The patient is alert and oriented times three. Pulse 104. Blood pressure 111/68, respiration 18, temp 98 degrees, pulse ox 94% on 2 L. HEENT: Conjunctivae normal. Oral mucosa moist. NECK is no jugular venous distention. No carotid bruit. No lymph node enlargement. CARDIOVASCULAR: S1-S2 muffled. RESPIRATORY: Breath sounds diminished in the bases. A few scattered rhonchi and crackles. Expiratory wheezing also present. CHEST emphysematous. ABDOMEN: Soft, nontender. No mass palpable. LEGS: No edema and no swelling. NERVOUS SYSTEM: Higher functions as mentioned earlier, moves all 4 limbs, no edema. LYMPHATICS: No lymph nodes palpable in the neck or axilla. SKIN no ulcer, rash or bleeding. LAB DATA: CBC, WBC 23.2, sodium 133. ASSESSMENT: 1. Chronic obstructive pulmonary disease acute exacerbation with acute purulent tracheobronchitis. 2. Increased WBC. 3. Hyponatremia. 4. History of breast cancer. 5. History of pneumonia. 6. History of spontaneous pneumothorax. 7. Chronic hypoxic respiratory failure on home O2 2 L. 8. History of uterine ablation. 9. Remote history of nicotine dependence. RECOMMENDATIONS AND DISCUSSION: In this 57-year-old woman with multiple complex medical issues, we will monitor the patient closely, continue the current medications, continue symptomatic treatment. Otherwise at this time, I would recommend continue with bronchodilators and the patient is also on IV steroids. We will monitor the blood sugars closely and Dr. Henderson has been consulted as well. Home medications will be continued DVT prophylaxis. The prognosis is guarded because of multiple complex medical issues and further recommendations to follow. Repeat labs will be ordered. A copy of dictation being forwarded to Dr. Henderson who is the primary physician. MMODL / IJN: [id number] /
[2018-04-06] MEDS: FORMOTEROL FUMARATE 20 MCG/2 ML NEBU INHALATION SCH (20:03)
[2018-04-06] MEDS: ACETAMINOPHEN TAB 325 MG TAB PO PRN (20:32)
[2018-04-06 20:38] LABS: Glucose,Whole Blood 123 mg/dL (75-99)
[2018-04-07] MEDS: methylPREDNISolone SOD SUCCI 125 MG/2 ML VIAL IV SCH ×3 (06:18→17:17)
[2018-04-07] MEDS: FORMOTEROL FUMARATE 20 MCG/2 ML NEBU INHALATION SCH ×2 (06:55→20:27)
[2018-04-07] MEDS: IPRATROPIUM-ALBUTEROL 3 ML NEB INHALATION PRN ×4 (06:55→20:27)
[2018-04-07] MEDS: BUDESONIDE 1 MG/2 ML NEBU INHALATION SCH ×2 (06:55→20:27)
[2018-04-07 07:31] LABS: Glucose,Whole Blood 132 mg/dL (75-99)
[2018-04-07] MEDS: ENOXAPARIN 40 MG/0.4 ML SYRINGE SQ SCH (07:40)
[2018-04-07] MEDS: LEVOFLOXACIN 500 MG TAB PO SCH (07:40)
[2018-04-07] MEDS: INSULIN ASPART 100 UNIT/ML 1 ML 10 ML VIAL SQ SCH ×4 (07:41→20:55)
[2018-04-07 07:46] LABS: Anion Gap 9 mmol/L; Blood Urea Nitrogen 8 mg/dL (7-17); Calcium 9.8 mg/dL (8.4-10.2); Carbon Dioxide 31 mmol/L (22-30); Chloride 95 mmol/L (98-107); Glucose 134 mg/dL (74-99); Sodium 135 mmol/L (137-145)
[2018-04-07 08:00] LABS: Basophils % (A) 0 %; Eosinophils % (A) 0 %; HCT 39.3 % (34.0-46.0); HGB 12.5 gm/dL (11.4-16.0); Lymphocytes # (A) 0.6 k/uL (1.0-4.8); Lymphocytes % (A) 4 %; MCH 29.4 pg (25.0-35.0); MCHC 31.8 g/dL (31.0-37.0); MCV 92.6 fL (80.0-100.0); Mean Platelet Volume 7.7; Monocytes # (A) 0.5 k/uL (0-1.0); Monocytes % (A) 3 %; Neutrophils # (A) 13.3 k/uL (1.3-7.7); Neutrophils % (A) 93 %; Platelet Count 297 k/uL (150-450); RBC 4.25 m/uL (3.80-5.40); RDW 12.9 % (11.5-15.5); WBC 14.4 k/uL (3.8-10.6)
[2018-04-07 11:42] LABS: Glucose,Whole Blood 139 mg/dL (75-99)
--- NOTE | 2018-04-07 14:30 | P.PN ---
Subjective Progress Note Date: 04/07/18 Principal diagnosis: Shortness of breath Progress note dated 04/07/2018 This is a 57-year-old female with a history of severe COPD. She came with increased shortness of breath coughing wheezing chest tightness and chest congestion with some yellow green phlegm production. She feels like she is a bit better today than she was yesterday when I saw her. She doesn't feel ready to go home. She still short of breath with chest congestion and she's coughing up thick mucus. In addition, she has a previous history of spontaneous pneumothorax which required apical bleb resection and mechanical pleurodesis. She also had a uterine ablation as well as a history of bilateral breast reconstruction. Objective - Vital Signs Vital signs: Vital Signs Temp 97.9 F 04/07/18 05:50 Pulse 92 04/07/18 11:20 Resp 20 04/07/18 05:50 BP 124/74 04/07/18 05:50 Pulse Ox 93 L 04/07/18 06:58 Intake & Output 04/06/18 04/07/18 04/07/18 18:59 06:59 18:59 Intake Total 100 250 Balance 100 250 Intake: Intake, IV Titration 100 Amount Levofloxacin 500Mg-D5w 100 Pmx 500 mg In Dextrose/ Water 1 100ml.bag @ 100 mls/hr IVPB DAILY [facility] Rx# :[id number] Oral 250 Other: Voiding Method Toilet Toilet Toilet # Voids 1 - Exam No acute distress, oriented 3. HEENT examination is grossly unremarkable. Mucous membranes are moist. No oral lesions. Neck supple. Full range of motion. No adenopathy thyromegaly or neck vein distention. Cardiovascular examination reveals regular rhythm rate. S1-S2 normal. No S3 or S4. No discernible murmur noted. Lungs reveal diffuse bilateral rhonchi and wheezes. Breath sounds are diminished. Prolongation on forced maneuver. Breath sounds are equal bilaterally. They are diminished throughout though. Breath sounds are improved compared to yesterday's examination. Abdomen soft bowel sounds are heard. No masses or tenderness. Extremities are intact. No cyanosis clubbing or edema. Skin is without rash or lesion. Neurologic examination is brief but nonfocal. - Labs CBC & Chem 7: 04/07/18 07:11 04/07/18 07:11 Labs: Abnormal Lab Results - Last 24 Hours (Table) 04/06/18 04/06/18 04/07/18 Range/Units 16:56 20:26 07:11 WBC 14.4 H (3.8-10.6) k/uL Neutrophils # 13.3 H (1.3-7.7) k/uL Lymphocytes # 0.6 L (1.0-4.8) k/uL Sodium (137-145) mmol/L Chloride (98-107) mmol/L Carbon Dioxide (22-30) mmol/L Creatinine (0.52-1.04) mg/dL Glucose (74-99) mg/dL POC Glucose (mg/dL) 113 H 123 H (75-99) mg/dL 04/07/18 04/07/18 04/07/18 Range/Units 07:11 07:12 11:39 WBC (3.8-10.6) k/uL Neutrophils # (1.3-7.7) k/uL Lymphocytes # (1.0-4.8) k/uL Sodium 135 L (137-145) mmol/L Chloride 95 L (98-107) mmol/L Carbon Dioxide 31 H (22-30) mmol/L Creatinine 0.41 L (0.52-1.04) mg/dL Glucose 134 H (74-99) mg/dL POC Glucose (mg/dL) 132 H 139 H (75-99) mg/dL Microbiology - Last 24 Hours (Table) 04/06/18 20:26 Gram Stain - Preliminary Sputum Sputum Culture - Preliminary 04/05/18 19:05 Blood Culture - Preliminary Blood No Growth after 24 hours Assessment and Plan Assessment: Assessment COPD exacerbation, complicated by purulent tracheobronchitis History of pneumonia History of breast cancer Previous history of mastectomy with bilateral breast reconstruction Status post spontaneous pneumothorax with apical bleb resection and mechanical pleurodesis Status post uterine ablation Previous history of heavy tobacco use Plan: Plan dated 04/06/2018 The patient's medications labs and x-rays all reviewed. We'll make sure she is on appropriate medications. Chest x-ray shows no evidence of infiltrate. Doppler of the leg was negative for DVT. We'll continue to follow. Prognosis is guarded. She does have quite severe COPD. Plan dated 04/07/2018 The patient's doing well. The patient's chest x-ray was negative for pneumonia. A Doppler of the leg was negative for DVT. The patient should stay 1 more day for steroids antibiotics and breathing treatments. She has an appointment in follow-up for me. Additional recommendations are made. Her COPD is quite severe. Currently requiring oxygen therapy. Time with Patient: Less than 30
[2018-04-07 17:23] LABS: Glucose,Whole Blood 141 mg/dL (75-99)
[2018-04-07] MEDS: ACETAMINOPHEN TAB 325 MG TAB PO PRN (19:32)
[2018-04-07 20:03] LABS: Glucose,Whole Blood 176 mg/dL (75-99)
--- NOTE | 2018-04-07 22:15 | PN ---
PROGRESS NOTE DATE OF SERVICE: 04/07/2018 This 57-year-old woman with a past medical history of COPD acute exacerbation was admitted with acute purulent tracheobronchitis and Dr. Henderson is following the patient closely. Patient is on IV steroids. No chest pain. No palpitations. No fever. On exam, alert and oriented x3. Pulse 108, blood pressure 130/94, respirations 14, temperature 98.9, pulse ox 94% on 2 L. HEENT: Conjunctivae normal. NECK: No jugular venous distention. CARDIOVASCULAR: S1-S2. RESPIRATORY: Breath sounds diminished in the bases. A few scattered rhonchi, no crackles. ABDOMEN: Soft, nontender. LEGS: No edema and no swelling. LAB STUDIES: WBC 14.4 and sodium 135. ASSESSMENT: 1. Chronic obstructive pulmonary disease acute exacerbation with acute tracheobronchitis. 2. Increased white blood count. 3. Hyponatremia. 4. History of breast cancer. 5. History of pneumonia. 6. History of spontaneous pneumothorax. 7. Chronic hypoxic respiratory failure on home O2 at 2 L. 8. History of uterine ablation. 9. Remote history of nicotine dependence. RECOMMENDATION AND DISCUSSION: Recommend to continue current management. Continue medications and symptomatic treatment. At this time I recommend continue with IV steroids. Closely follow with Pulmonary. Further recommendations to follow. MMODL / IJN: [id number] /
[2018-04-07] MEDS: methylPREDNISolone SOD SUCCI 40 MG/ML 1 ML VIAL IV SCH (23:19)
[2018-04-08] MEDS: ACETAMINOPHEN TAB 325 MG TAB PO PRN ×2 (06:39→20:33)
[2018-04-08 07:15] LABS: Glucose,Whole Blood 123 mg/dL (75-99)
[2018-04-08 07:26] LABS: Basophils % (A) 0 %; Eosinophils % (A) 0 %; HGB 12.2 gm/dL (11.4-16.0); Lymphocytes # (A) 0.3 k/uL (1.0-4.8); Lymphocytes % (A) 3 %; MCH 29.1 pg (25.0-35.0); MCHC 31.2 g/dL (31.0-37.0); MCV 93.1 fL (80.0-100.0); Mean Platelet Volume 6.9; Monocytes # (A) 0.7 k/uL (0-1.0); Monocytes % (A) 5 %; Neutrophils # (A) 12.3 k/uL (1.3-7.7); Neutrophils % (A) 92 %; Platelet Count 315 k/uL (150-450); RBC 4.19 m/uL (3.80-5.40); RDW 12.8 % (11.5-15.5); WBC 13.4 k/uL (3.8-10.6)
[2018-04-08] MEDS: IPRATROPIUM-ALBUTEROL 3 ML NEB INHALATION PRN ×2 (07:37→11:16)
[2018-04-08] MEDS: FORMOTEROL FUMARATE 20 MCG/2 ML NEBU INHALATION SCH ×2 (07:37→20:20)
[2018-04-08] MEDS: BUDESONIDE 1 MG/2 ML NEBU INHALATION SCH ×2 (07:37→20:20)
[2018-04-08] MEDS: INSULIN ASPART 100 UNIT/ML 1 ML 10 ML VIAL SQ SCH ×4 (07:43→20:34)
[2018-04-08] MEDS: methylPREDNISolone SOD SUCCI 40 MG/ML 1 ML VIAL IV SCH ×3 (07:44→23:27)
[2018-04-08] MEDS: ENOXAPARIN 40 MG/0.4 ML SYRINGE SQ SCH (07:44)
[2018-04-08] MEDS: LEVOFLOXACIN 500 MG TAB PO SCH (07:44)
[2018-04-08 07:49] LABS: Anion Gap 5 mmol/L; Blood Urea Nitrogen 9 mg/dL (7-17); Calcium 9.5 mg/dL (8.4-10.2); Carbon Dioxide 37 mmol/L (22-30); Chloride 90 mmol/L (98-107); Glucose 115 mg/dL (74-99); Potassium 5.3 mmol/L (3.5-5.1); Sodium 132 mmol/L (137-145)
[2018-04-08 11:48] LABS: Glucose,Whole Blood 137 mg/dL (75-99)
[2018-04-08 13:06] LABS: Hemoglobin A1C 5.7 % (4.0-6.0)
[2018-04-08] MEDS: guaiFENesin 600 MG TABLET.ER PO SCH ×2 (13:39→20:32)
[2018-04-08] MEDS: IPRATROPIUM-ALBUTEROL 3 ML NEB INHALATION SCH ×2 (16:23→20:20)
[2018-04-08 16:59] LABS: Glucose,Whole Blood 125 mg/dL (75-99)
--- NOTE | 2018-04-08 17:22 | P.PN ---
Subjective Progress Note Date: 04/08/18 Principal diagnosis: COPD exacerbation, complicated by purulent tracheobronchitis Shortness of breath Progress note dated 04/07/2018 This is a 57-year-old female with a history of severe COPD. She came with increased shortness of breath coughing wheezing chest tightness and chest congestion with some yellow green phlegm production. She feels like she is a bit better today than she was yesterday when I saw her. She doesn't feel ready to go home. She still short of breath with chest congestion and she's coughing up thick mucus. In addition, she has a previous history of spontaneous pneumothorax which required apical bleb resection and mechanical pleurodesis. She also had a uterine ablation as well as a history of bilateral breast reconstruction. On 04/08/2018 patient seen in follow-up on medical surgical floor. She still complaining of chest tightness, she still remains dyspneic with any exertion, lung sounds are diminished to auscultation, with prolongation of the expiratory phase. Patient states she is not able to bring up any sputum, but feels as though she is congested. We'll continue current medical treatment, will add Mucinex, continue IV steroids, continue nebulized bronchodilators, continue oral Levaquin. Objective - Vital Signs Vital signs: Vital Signs Temp 98.2 F 04/08/18 15:08 Pulse 96 04/08/18 16:38 Resp 16 04/08/18 15:08 BP 143/76 04/08/18 15:08 Pulse Ox 92 L 04/08/18 15:08 Intake & Output 04/07/18 04/08/18 04/08/18 18:59 06:59 18:59 Intake Total 200 Balance 200 Intake: Oral 200 Other: Voiding Method Toilet Toilet # Voids 3 1 - Exam No acute distress, oriented 3. HEENT examination is grossly unremarkable. Mucous membranes are moist. No oral lesions. Neck supple. Full range of motion. No adenopathy thyromegaly or neck vein distention. Cardiovascular examination reveals regular rhythm rate. S1-S2 normal. No S3 or S4. No discernible murmur noted. Lungs reveal diminished breath sounds bilaterally. Prolongation on forced maneuver. Breath sounds are equal bilaterally. They are diminished throughout though. Abdomen soft bowel sounds are heard. No masses or tenderness. Extremities are intact. No cyanosis clubbing or edema. Skin is without rash or lesion. Neurologic examination is brief but nonfocal. - Labs CBC & Chem 7: 04/08/18 06:37 04/08/18 06:37 Labs: Abnormal Lab Results - Last 24 Hours (Table) 04/07/18 04/07/18 04/08/18 Range/Units 17:12 20:01 06:37 WBC 13.4 H (3.8-10.6) k/uL Neutrophils # 12.3 H (1.3-7.7) k/uL Lymphocytes # 0.3 L (1.0-4.8) k/uL Sodium (137-145) mmol/L Potassium (3.5-5.1) mmol/L Chloride (98-107) mmol/L Carbon Dioxide (22-30) mmol/L Creatinine (0.52-1.04) mg/dL Glucose (74-99) mg/dL POC Glucose (mg/dL) 141 H 176 H (75-99) mg/dL 04/08/18 04/08/18 04/08/18 Range/Units 06:37 07:14 11:47 WBC (3.8-10.6) k/uL Neutrophils # (1.3-7.7) k/uL Lymphocytes # (1.0-4.8) k/uL Sodium 132 L (137-145) mmol/L Potassium 5.3 H (3.5-5.1) mmol/L Chloride 90 L (98-107) mmol/L Carbon Dioxide 37 H (22-30) mmol/L Creatinine 0.44 L (0.52-1.04) mg/dL Glucose 115 H (74-99) mg/dL POC Glucose (mg/dL) 123 H 137 H (75-99) mg/dL 04/08/18 Range/Units 16:58 WBC (3.8-10.6) k/uL Neutrophils # (1.3-7.7) k/uL Lymphocytes # (1.0-4.8) k/uL Sodium (137-145) mmol/L Potassium (3.5-5.1) mmol/L Chloride (98-107) mmol/L Carbon Dioxide (22-30) mmol/L Creatinine (0.52-1.04) mg/dL Glucose (74-99) mg/dL POC Glucose (mg/dL) 125 H (75-99) mg/dL Microbiology - Last 24 Hours (Table) 04/06/18 20:26 Gram Stain - Final Sputum Sputum Culture - Final 04/05/18 19:05 Blood Culture - Preliminary Blood No Growth after 48 hours Assessment and Plan Plan: Assessment: Assessment COPD exacerbation, complicated by purulent tracheobronchitis History of pneumonia History of breast cancer Previous history of mastectomy with bilateral breast reconstruction Status post spontaneous pneumothorax with apical bleb resection and mechanical pleurodesis Status post uterine ablation Previous history of heavy tobacco use Plan Continue current medical treatment, continue IV steroids, nebulized bronchodilators, Pulmicort and Perforomist. Continue empiric antibiotics in the form of Levaquin, we'll add Mucinex, patient is not back to her baseline yet , still complaining of chest tightness, unable to bring up any sputum. I performed a history & physical examination of the patient and discussed their management with my nurse practitioner, Destinee Tay. I reviewed the nurse practitioner's note and agree with the documented findings and plan of care. Lung sounds are diminished. The findings and the impression was discussed with the patient. I attest to the documentation by the nurse practitioner. Time with Patient: Less than 30
--- NOTE | 2018-04-08 18:43 | PN ---
PROGRESS NOTE DATE OF SERVICE: 04/08/2018 This 57-year-old woman was admitted with COPD acute exacerbation, being closely monitored. No chest pain. No palpitations. No fever. The patient is still complaining of shortness of breath. EXAM: Alert and oriented x3. Pulse is 94, blood pressure 123/70, respirations 18, temperature 98 degrees, pulse ox 94% on 2L. HEENT: Conjunctivae normal. NECK: No jugular venous distention. CARDIOVASCULAR: S1, S2 muffled. RESPIRATORY: Breath sounds diminished in the bases. A few scattered rhonchi and crackles. ABDOMEN: Soft, nontender. LEGS: No edema. NERVOUS SYSTEM: Nonfocal. LABS: Sodium 138, potassium 5.3. ASSESSMENT: 1. Chronic obstructive pulmonary disease acute exacerbation with acute purulent tracheobronchitis. 2. Increased WBC. 3. Hyponatremia. 4. History of breast cancer. 5. History of pneumonia. 6. History of spontaneous pneumothorax. 7. Chronic hypoxic respiratory failure on home O2 2L. 8. History uterine ablation. 9. Remote history of nicotine dependence. RECOMMENDATIONS AND DISCUSSION: Recommend to continue current medical management and symptomatic treatment. Continue with IV steroids. Continue with bronchodilators. Closely follow with Dr. Coles. Mucinex has been added. The steroids have been reduced. Further recommendations to follow. MMODL / IJN: [id number] /
[2018-04-08 20:05] LABS: Glucose,Whole Blood 171 mg/dL (75-99)
[2018-04-09] MEDS: ACETAMINOPHEN TAB 325 MG TAB PO PRN ×3 (04:29→23:45)
[2018-04-09] MEDS: IPRATROPIUM-ALBUTEROL 3 ML NEB INHALATION PRN ×2 (04:29→23:16)
[2018-04-09 06:42] LABS: Glucose,Whole Blood 118 mg/dL (75-99)
[2018-04-09] MEDS: INSULIN ASPART 100 UNIT/ML 1 ML 10 ML VIAL SQ SCH ×4 (07:12→21:10)
[2018-04-09] MEDS: IPRATROPIUM-ALBUTEROL 3 ML NEB INHALATION SCH ×4 (07:45→19:16)
[2018-04-09] MEDS: BUDESONIDE 1 MG/2 ML NEBU INHALATION SCH ×2 (07:45→19:16)
[2018-04-09] MEDS: FORMOTEROL FUMARATE 20 MCG/2 ML NEBU INHALATION SCH ×2 (07:45→19:16)
[2018-04-09] MEDS: methylPREDNISolone SOD SUCCI 40 MG/ML 1 ML VIAL IV SCH (08:11)
[2018-04-09] MEDS: guaiFENesin 600 MG TABLET.ER PO SCH ×2 (08:14→21:10)
[2018-04-09] MEDS: ENOXAPARIN 40 MG/0.4 ML SYRINGE SQ SCH (08:14)
[2018-04-09] MEDS: LEVOFLOXACIN 500 MG TAB PO SCH (08:14)
[2018-04-09 08:18] LABS: Basophils % (A) 0 %; Eosinophils % (A) 0 %; HCT 38.6 % (34.0-46.0); HGB 12.2 gm/dL (11.4-16.0); Hypochromasia Slight; Lymphocytes # (A) 0.4 k/uL (1.0-4.8); Lymphocytes % (A) 4 %; MCH 29.5 pg (25.0-35.0); MCHC 31.6 g/dL (31.0-37.0); MCV 93.4 fL (80.0-100.0); Monocytes # (A) 0.5 k/uL (0-1.0); Monocytes % (A) 5 %; Neutrophils # (A) 8.9 k/uL (1.3-7.7); Neutrophils % (A) 90 %; Platelet Count 299 k/uL (150-450); RBC 4.13 m/uL (3.80-5.40); RDW 12.9 % (11.5-15.5); WBC 9.8 k/uL (3.8-10.6)
[2018-04-09 08:32] LABS: Blood Urea Nitrogen 11 mg/dL (7-17); Calcium 9.3 mg/dL (8.4-10.2); Chloride 85 mmol/L (98-107); Glucose 116 mg/dL (74-99); Potassium 5.1 mmol/L (3.5-5.1); Sodium 132 mmol/L (137-145)
[2018-04-09 08:41] LABS: Anion Gap 6 mmol/L
[2018-04-09 08:44] LABS: Carbon Dioxide 41 mmol/L (22-30)
[2018-04-09 11:12] LABS: Glucose,Whole Blood 182 mg/dL (75-99)
--- NOTE | 2018-04-09 14:43 | P.PN ---
Subjective Progress Note Date: 04/09/18 Principal diagnosis: Acute exacerbation of chronic obstructive pulmonary disease. This is a 57-year-old female with a history of severe COPD. She came with increased shortness of breath coughing wheezing chest tightness and chest congestion with some yellow green phlegm production. She feels like she is a bit better today than she was yesterday when I saw her. She doesn't feel ready to go home. She still short of breath with chest congestion and she's coughing up thick mucus. In addition, she has a previous history of spontaneous pneumothorax which required apical bleb resection and mechanical pleurodesis. She also had a uterine ablation as well as a history of bilateral breast reconstruction. On 04/08/2018 patient seen in follow-up on medical surgical floor. She still complaining of chest tightness, she still remains dyspneic with any exertion, lung sounds are diminished to auscultation, with prolongation of the expiratory phase. Patient states she is not able to bring up any sputum, but feels as though she is congested. We'll continue current medical treatment, will add Mucinex, continue IV steroids, continue nebulized bronchodilators, continue oral Levaquin. The patient is seen again today 04/09/2018 in follow-up on the regular medical floor. She is currently awake and alert in no acute distress. She's been up ambulating in her room. She is nearly back to her baseline. She does have some exertional dyspnea but still somewhat bronchospastic and wheezing. But better today compared to yesterday. She is maintaining O2 saturations in the 90s on 2 L/m per nasal cannula. She is 87% on room air. She does have home oxygen. Sputum and blood cultures reveal no growth. No leukocytosis. Bicarb 41. Creatinine 0.49. Objective - Vital Signs Vital signs: Vital Signs Temp 97.6 F 04/09/18 05:29 Pulse 96 04/09/18 11:45 Resp 16 04/09/18 10:44 BP 134/71 04/09/18 05:29 Pulse Ox 87 L 04/09/18 10:44 Intake & Output 04/08/18 04/09/18 04/09/18 18:59 06:59 18:59 Other: Voiding Method Toilet Toilet # Voids 2 - Exam GENERAL EXAM: Alert, active, comfortable in no apparent distress. HEAD: Normocephalic. EYES: Normal reaction of pupils, equal size. NOSE: Clear with pink turbinates. THROAT: No erythema or exudates. NECK: No masses, no JVD. CHEST: No chest wall deformity. LUNGS: Equal air entry with end expiratory wheeze, diminished. CVS: S1 and S2 normal with no audible murmur, regular rhythm. ABDOMEN: No hepatosplenomegaly, normal bowel sounds, no guarding or rigidity. SPINE: No scoliosis or deformity SKIN: No rashes CENTRAL NERVOUS SYSTEM: No focal deficits, tone is normal in all 4 extremities. EXTREMITIES: There is no peripheral edema. No clubbing, no cyanosis. Peripheral pulses are intact. - Labs CBC & Chem 7: 04/09/18 07:08 04/09/18 07:08 Labs: Abnormal Lab Results - Last 24 Hours (Table) 04/08/18 04/08/18 04/09/18 Range/Units 16:58 20:03 06:41 Neutrophils # (1.3-7.7) k/uL Lymphocytes # (1.0-4.8) k/uL Sodium (137-145) mmol/L Chloride (98-107) mmol/L Carbon Dioxide (22-30) mmol/L Creatinine (0.52-1.04) mg/dL Glucose (74-99) mg/dL POC Glucose (mg/dL) 125 H 171 H 118 H (75-99) mg/dL 04/09/18 04/09/18 04/09/18 Range/Units 07:08 07:08 11:04 Neutrophils # 8.9 H (1.3-7.7) k/uL Lymphocytes # 0.4 L (1.0-4.8) k/uL Sodium 132 L (137-145) mmol/L Chloride 85 L (98-107) mmol/L Carbon Dioxide 41 H* (22-30) mmol/L Creatinine 0.49 L (0.52-1.04) mg/dL Glucose 116 H (74-99) mg/dL POC Glucose (mg/dL) 182 H (75-99) mg/dL Microbiology - Last 24 Hours (Table) 04/05/18 19:05 Blood Culture - Preliminary Blood No Growth after 72 hours 04/06/18 20:26 Gram Stain - Final Sputum Sputum Culture - Final Assessment and Plan Assessment: Assessment Acute on chronic hypoxic respiratory failure secondary to COPD exacerbation, complicated by purulent tracheobronchitis History of pneumonia History of breast cancer Previous history of mastectomy with bilateral breast reconstruction Status post spontaneous pneumothorax with apical bleb resection and mechanical pleurodesis Status post uterine ablation Previous history of heavy tobacco use Plan: The patient was seen and evaluated by Dr. Coles. She is nearly back to her baseline. We felt she could be discharged home later today or perhaps tomorrow morning. In the interim we'll continue with bronchodilators, Pulmicort and Perforomist inhalations, convert to oral prednisone. Continue empiric antibiotics. Increase her activity as tolerated. We'll continue to follow. She'll be seen in our office one week post discharge. I, the cosigning physician, performed a history & physical examination of the patient. Lungs sounds and expiratory wheeze. Diminished. Maintaining good O2 saturations in the 90s on 2 L/m per nasal cannula. I discussed the assessment and plan of care with my nurse practitioner, Taylor Michelle. I attest to the above note as dictated by her.
[2018-04-09 16:58] LABS: Glucose,Whole Blood 108 mg/dL (75-99)
--- NOTE | 2018-04-09 19:49 | P.PN ---
Subjective Progress Note Date: 04/09/18 Progress note being dictated for Dr. Rivera Interval history: This is a 57-year-old admitted with acute COPD exacerbation and multiple other medical issues. Mucinex initiated yesterday. No cough reported. Maintained on nebulized bronchodilators, steroids, Levaquin with breathing improving, less wheezing. Afebrile. Bicarb 41. Sputum and blood cultures negative. Objective - Vital Signs Vital signs: Vital Signs Temp 97.9 F 04/09/18 14:20 Pulse 99 04/09/18 19:39 Resp 18 04/09/18 14:20 BP 149/79 04/09/18 14:20 Pulse Ox 93 L 04/09/18 14:20 Intake & Output 04/09/18 04/09/18 04/10/18 06:59 18:59 06:59 Other: Voiding Method Toilet Toilet # Voids 2 4 - Exam PHYSICAL EXAM: VITAL SIGNS: As above GENERAL: Sitting up in chair, no acute distress HEENT: Conjunctivae normal. eyes normal. Oral mucosa moist NECK: No JVD. No thyroid enlargement. No LNs CARDIOVASCULAR: S1, S2 muffled. No murmur RESPIRATION: Breath sounds diminished in the bases. Occasional scattered rhonchi and expiratory wheezes, no crackles. ABDOMEN: Soft, nontender . No guarding. no masses palpable. Bowel sounds heard. LEGS: No edema. no swelling PSYCHIATRY: Alert and oriented -3, mood and affect normal. NERVOUS SYSTEM: Cranial N 2-12 grossly normal. Moves all 4 limbs. Diffuse weakness No focal deficits. Skin: no ulcer no rash - Labs CBC & Chem 7: 04/09/18 07:08 04/09/18 07:08 Labs: Abnormal Lab Results - Last 24 Hours (Table) 04/08/18 04/09/18 04/09/18 Range/Units 20:03 06:41 07:08 Neutrophils # 8.9 H (1.3-7.7) k/uL Lymphocytes # 0.4 L (1.0-4.8) k/uL Sodium (137-145) mmol/L Chloride (98-107) mmol/L Carbon Dioxide (22-30) mmol/L Creatinine (0.52-1.04) mg/dL Glucose (74-99) mg/dL POC Glucose (mg/dL) 171 H 118 H (75-99) mg/dL 04/09/18 04/09/18 04/09/18 Range/Units 07:08 11:04 16:56 Neutrophils # (1.3-7.7) k/uL Lymphocytes # (1.0-4.8) k/uL Sodium 132 L (137-145) mmol/L Chloride 85 L (98-107) mmol/L Carbon Dioxide 41 H* (22-30) mmol/L Creatinine 0.49 L (0.52-1.04) mg/dL Glucose 116 H (74-99) mg/dL POC Glucose (mg/dL) 182 H 108 H (75-99) mg/dL Microbiology - Last 24 Hours (Table) 04/05/18 19:05 Blood Culture - Preliminary Blood No Growth after 72 hours Assessment and Plan Assessment: 1. Acute COPD exacerbation with acute purulent tracheobronchitis 2. Mild hyponatremia 3. History of breast cancer 4. History of spontaneous pneumothorax 5. Chronic hypoxic respiratory failure on home O2 Plan: Continue current medication regime ,monitoring and symptomatic treatment. Maintain antibiotics, nebulized bronchodilators, steroids. Follow closely with pulmonary. Discharge planning in progress for tomorrow pending pulmonary clearance. The impression and plan of care has been dictated as directed. : I performed a history and examination of this patient, discussed the same with the dictator. I agree with the dictator's note ,documented as a scribe. Any additional findings or plans will be noted.
[2018-04-09 20:09] LABS: Glucose,Whole Blood 138 mg/dL (75-99)
[2018-04-09 21:56] VITALS: TEMP 98
[2018-04-10] MEDS: ACETAMINOPHEN TAB 325 MG TAB PO PRN (06:04)
[2018-04-10 06:42] VITALS: BP 145/82; RESP 16
[2018-04-10 06:55] LABS: Glucose,Whole Blood 93 mg/dL (75-99)
[2018-04-10 07:19] LABS: Basophils % (A) 0 %; Eosinophils % (A) 0 %; HGB 11.8 gm/dL (11.4-16.0); Lymphocytes # (A) 1.6 k/uL (1.0-4.8); Lymphocytes % (A) 16 %; MCH 28.7 pg (25.0-35.0); MCHC 31.1 g/dL (31.0-37.0); MCV 92.1 fL (80.0-100.0); Monocytes # (A) 1.1 k/uL (0-1.0); Monocytes % (A) 11 %; Neutrophils # (A) 6.9 k/uL (1.3-7.7); Neutrophils % (A) 71 %; Platelet Count 308 k/uL (150-450); RBC 4.13 m/uL (3.80-5.40); RDW 12.9 % (11.5-15.5); WBC 9.7 k/uL (3.8-10.6)
[2018-04-10 07:42] LABS: Blood Urea Nitrogen 12 mg/dL (7-17); Calcium 9.1 mg/dL (8.4-10.2); Chloride 85 mmol/L (98-107); Glucose 86 mg/dL (74-99); Potassium 4.7 mmol/L (3.5-5.1); Sodium 132 mmol/L (137-145)
[2018-04-10 07:50] LABS: Anion Gap 3 mmol/L
[2018-04-10 08:02] LABS: Carbon Dioxide 44 mmol/L (22-30)
[2018-04-10] MEDS: INSULIN ASPART 100 UNIT/ML 1 ML 10 ML VIAL SQ SCH ×2 (08:41→13:37)
[2018-04-10] MEDS: BUDESONIDE 1 MG/2 ML NEBU INHALATION SCH (08:45)
[2018-04-10] MEDS: FORMOTEROL FUMARATE 20 MCG/2 ML NEBU INHALATION SCH (08:45)
[2018-04-10] MEDS: IPRATROPIUM-ALBUTEROL 3 ML NEB INHALATION SCH ×2 (08:45→12:06)
[2018-04-10] MEDS ORDERED: predniSONE 20 MG TAB PO SCH (09:00)
[2018-04-10] MEDS: LEVOFLOXACIN 500 MG TAB PO SCH (09:10)
[2018-04-10] MEDS: ENOXAPARIN 40 MG/0.4 ML SYRINGE SQ SCH (09:12)
[2018-04-10] MEDS: guaiFENesin 600 MG TABLET.ER PO SCH (09:13)
[2018-04-10 11:09] LABS: Glucose,Whole Blood 107 mg/dL (75-99)
[2018-04-10 12:20] VITALS: PULSE 84
--- NOTE | 2018-04-10 16:13 | P.PN ---
Subjective Progress Note Date: 04/10/18 Principal diagnosis: COPD exacerbation, complicated by purulent tracheobronchitis Shortness of breath Progress note dated 04/07/2018 This is a 57-year-old female with a history of severe COPD. She came with increased shortness of breath coughing wheezing chest tightness and chest congestion with some yellow green phlegm production. She feels like she is a bit better today than she was yesterday when I saw her. She doesn't feel ready to go home. She still short of breath with chest congestion and she's coughing up thick mucus. In addition, she has a previous history of spontaneous pneumothorax which required apical bleb resection and mechanical pleurodesis. She also had a uterine ablation as well as a history of bilateral breast reconstruction. On 04/08/2018 patient seen in follow-up on medical surgical floor. She still complaining of chest tightness, she still remains dyspneic with any exertion, lung sounds are diminished to auscultation, with prolongation of the expiratory phase. Patient states she is not able to bring up any sputum, but feels as though she is congested. We'll continue current medical treatment, will add Mucinex, continue IV steroids, continue nebulized bronchodilators, continue oral Levaquin. On 04/10/2018 patient seen again in follow-up. She continues to improve, less chest tightness, less wheezing, less chest congestion. Pulse ox on 2 L per nasal cannula is 94%, patient is afebrile, vital signs are stable. Lung sounds are generally diminished, no rhonchi or wheezes noted on today's exam. Patient has been ambulating, tolerating activity well. She is requesting to go home today. Patient has been treated with combination of Levaquin, nebulized bronchodilators, Mucinex, and steroids, and has clinically improved, patient is stable for discharge home from pulmonary standpoint, and she has a follow-up appointment Dr. Henderson in the office on April 29 Objective - Vital Signs Vital signs: Vital Signs Temp 98.0 F 04/10/18 06:41 Pulse 84 04/10/18 12:19 Resp 16 04/10/18 06:41 BP 145/82 04/10/18 06:41 Pulse Ox 94 L 04/10/18 08:48 Intake & Output 04/09/18 04/10/18 04/10/18 18:59 06:59 18:59 Intake Total 550 Balance 550 Intake: Oral 550 Other: Voiding Method Toilet Toilet # Voids 4 2 - Exam No acute distress, oriented 3. HEENT examination is grossly unremarkable. Mucous membranes are moist. No oral lesions. Neck supple. Full range of motion. No adenopathy thyromegaly or neck vein distention. Cardiovascular examination reveals regular rhythm rate. S1-S2 normal. No S3 or S4. No discernible murmur noted. Lungs reveal diminished breath sounds bilaterally. Prolongation on forced maneuver. Breath sounds are equal bilaterally. They are diminished throughout though. Abdomen soft bowel sounds are heard. No masses or tenderness. Extremities are intact. No cyanosis clubbing or edema. Skin is without rash or lesion. Neurologic examination is brief but nonfocal. - Labs CBC & Chem 7: 04/10/18 06:43 04/10/18 06:47 Labs: Abnormal Lab Results - Last 24 Hours (Table) 04/09/18 04/09/18 04/10/18 Range/Units 16:56 20:07 06:43 Monocytes # 1.1 H (0-1.0) k/uL Sodium (137-145) mmol/L Chloride (98-107) mmol/L Carbon Dioxide (22-30) mmol/L Creatinine (0.52-1.04) mg/dL POC Glucose (mg/dL) 108 H 138 H (75-99) mg/dL 04/10/18 04/10/18 Range/Units 06:47 11:05 Monocytes # (0-1.0) k/uL Sodium 132 L (137-145) mmol/L Chloride 85 L (98-107) mmol/L Carbon Dioxide 44 H* (22-30) mmol/L Creatinine 0.47 L (0.52-1.04) mg/dL POC Glucose (mg/dL) 107 H (75-99) mg/dL Microbiology - Last 24 Hours (Table) 04/05/18 19:05 Blood Culture - Preliminary Blood No Growth after 96 hours Assessment and Plan Plan: Assessment: Assessment COPD exacerbation, complicated by purulent tracheobronchitis History of pneumonia History of breast cancer Previous history of mastectomy with bilateral breast reconstruction Status post spontaneous pneumothorax with apical bleb resection and mechanical pleurodesis Status post uterine ablation Previous history of heavy tobacco use Plan Patient continues to improve, less chest tightness, less wheezing and chest congestion. Her vital signs are stable, no acute events overnight, tolerating ambulation, patient is stable for discharge home today, follow up with Dr. Henderson in the office. I performed a history & physical examination of the patient and discussed their management with my nurse practitioner, Destinee Tay. I reviewed the nurse practitioner's note and agree with the documented findings and plan of care. Lung sounds are diminished. The findings and the impression was discussed with the patient. I attest to the documentation by the nurse practitioner. Time with Patient: Less than 30
--- NOTE | 2018-04-10 18:15 | P.DS ---
Providers Date of admission: 04/05/18 20:46 Expected date of discharge: 04/10/18 Attending physician: Leesa Rivera Consults: 04/05/18 20:46 Consult Physician Routine Consulting Provider: Abe Henderson Consult Reason/Comments: copd, bronchitis Do you want consulting provider notified?: Yes Primary care physician: Abe Henderson Hospital Course: Final Diagnoses: 1. Acute COPD exacerbation with acute purulent tracheobronchitis 2. Mild hyponatremia 3. History of breast cancer 4. History of spontaneous pneumothorax 5. Chronic hypoxic respiratory failure on home O2 Hospital course:This is a 57-year-old admitted with acute COPD exacerbation and multiple other medical issues. Evaluated by pulmonary Maintained on nebulized bronchodilators, steroids, Levaquin. Sputum and blood cultures negative. Significant clinical improvement. Patient has been cleared for discharge by pulmonary. Patient is being discharged home in stable condition with guarded prognosis. PHYSICAL EXAM: GENERAL: Alert & Oriented X 3, no acute distress CARDIOVASCULAR: S1, S2 muffled. No murmur RESPIRATION: Breath sounds diminished in the bases. Occasional scattered rhonchi and expiratory wheezes, no crackles. ABDOMEN: Soft, nontender . No guarding. no masses palpable. Positive Bowel sounds NERVOUS SYSTEM: No focal deficits. The impression and plan of care has been dictated as directed. : I performed a history and examination of this patient, discussed the same with the dictator. I agree with the dictator's note ,documented as a scribe. Any additional findings or plans will be noted. Time taken: 35 minutes Patient Condition at Discharge: Stable Plan - Discharge Summary New Discharge Prescriptions: New Levofloxacin [Levaquin] 500 mg PO DAILY 3 Days #3 tab predniSONE 0 mg PO DIRECTED 16 Days #40 tab guaiFENesin [Mucinex] 1,200 mg PO Q12HR tablet.er Continue Budesonide-Formot 160-4.5 Mcg [Symbicort 160-4.5 Mcg Inhaler] 2 puff INHALATION RT-BID #120 puff predniSONE 5 mg PO DAILY Ipratropium Nebulized [Atrovent Nebulized] 0.5 mg INHALATION RT-QID Albuterol Nebulized [Ventolin Nebulized] 2.5 mg INHALATION Q4H Albuterol Inhaler [Ventolin Hfa Inhaler] 1 - 2 puff INHALATION RT-Q6H PRN PRN Reason: Wheezing Discharge Medication List Budesonide-Formot 160-4.5 Mcg [Symbicort 160-4.5 Mcg Inhaler] 2 puff INHALATION RT-BID #120 puff 07/07/17 [Rx] Albuterol Inhaler [Ventolin Hfa Inhaler] 1 - 2 puff INHALATION RT-Q6H PRN [History] Albuterol Nebulized [Ventolin Nebulized] 2.5 mg INHALATION Q4H 04/05/18 [History ] Ipratropium Nebulized [Atrovent Nebulized] 0.5 mg INHALATION RT-QID 04/05/18 [ History] predniSONE 5 mg PO DAILY 04/05/18 [History] Levofloxacin [Levaquin] 500 mg PO DAILY 3 Days #3 tab 04/10/18 [Rx] guaiFENesin [Mucinex] 1,200 mg PO Q12HR tablet.er 04/10/18 [Rx] predniSONE 0 mg PO DIRECTED 16 Days #40 tab 04/10/18 [Rx] Follow up Appointment(s)/Referral(s): Abe Henderson DO [Primary Care Provider] - 04/18/18 9:45 am Ambulatory/Diagnostic Orders: Complete Blood Count w/diff [LAB.AMB] Time Frame: 3 Days, Location: Determined By Patient Patient Instructions/Handouts: Prednisone (By mouth), Levofloxacin (By mouth), Fever in Adults (GEN), COPD (Chronic Obstructive Pulmonary Disease) (DC), Dyspnea (GEN), Hypoxia (GEN) Discharge Disposition: HOME SELF-CARE
== END 2018-04-10 13:45 | disposition home or self-care (01) | DRG 191 ==
LOC: EC 18:37 → 5MS5E 20:46
PROVIDERS: ADMIT Internal Medicine; ATTEND Internal Medicine
DX: J44.0 Chronic obstructive pulmonary disease with (acute) lower respiratory infection (principal); E87.1 Hypo-osmolality and hyponatremia; J96.11 Chronic respiratory failure with hypoxia; J44.1 Chronic obstructive pulmonary disease with (acute) exacerbation; J20.9 Acute bronchitis, unspecified; E87.8 Other disorders of electrolyte and fluid balance, not elsewhere classified; I10 Essential (primary) hypertension; Z79.51 Long term (current) use of inhaled steroids; Z79.52 Long term (current) use of systemic steroids; Z80.1 Family history of malignant neoplasm of trachea, bronchus and lung; Z80.3 Family history of malignant neoplasm of breast; Z82.49 Family history of ischemic heart disease and other diseases of the circulatory system; Z82.5 Family history of asthma and other chronic lower respiratory diseases; Z83.3 Family history of diabetes mellitus; Z85.3 Personal history of malignant neoplasm of breast; Z87.01 Personal history of pneumonia (recurrent); Z87.891 Personal history of nicotine dependence; Z90.10 Acquired absence of unspecified breast and nipple; Z99.81 Dependence on supplemental oxygen
CPT/HCPCS: 36415; 71046; 80048; 80053; 81003; 82550; 82553; 83036; 83880; 84484; 85025; 85379; 85610; 85730; 87040; 87070; 87205; 87502; 93005; 94640; 94760; 96361; 96365; 96375; 99285

== ENCOUNTER 2018-04-17 08:44 | Inpatient (IN) | payer OTHER ==
[2018-04-17] MEDS ORDERED: ACETAMINOPHEN TAB 500 MG TAB PO STA (09:02)
[2018-04-17] MEDS ORDERED: IBUPROFEN 600 MG TAB PO STA (09:02)
--- NOTE | 2018-04-17 09:07 | ED ---
General Adult HPI - General Chief complaint: Shortness of Breath Stated complaint: SHRUTI Time Seen by Provider: 04/17/18 08:50 Source: EMS, RN notes reviewed Mode of arrival: EMS Limitations: physical limitation - History of Present Illness Initial comments: This is a 57-year-old female with a past medical history significant for COPD. Patient was in recently and placed on Levaquin however she states last night the middle the night her shortness of breath came back and she is unable to get it to resolve. Patient states she's on 2 L oxygen at all times at home. Patient states she felt warm but didn't take her temperature. Patient states she does have a cough but no sputum production. Patient denies any chest pain or palpitations. Patient denies any back pain. Patient denies any headache patient denies numbness weakness. Patient denies any lightheadedness or dizziness. Patient denies any swelling in her legs or calf tenderness. Patient denied abdominal pain patient denies any nausea vomiting diarrhea. - Related Data Home Medications Medication Instructions Recorded Confirmed Albuterol Inhaler [Ventolin Hfa 1 - 2 puff INHALATION RT-Q6H PRN 04/05/18 Inhaler] Albuterol Nebulized [Ventolin 2.5 mg INHALATION RT-QID 04/05/18 04/17/18 Nebulized] Ipratropium Nebulized [Atrovent 0.5 mg INHALATION RT-QID 04/05/18 04/17/18 Nebulized] guaiFENesin [Mucinex] 1,200 mg PO Q12HR PRN 04/17/18 04/17/18 predniSONE See Taper PO DAILY 04/17/18 04/17/18 Previous Rx's Medication Instructions Recorded Budesonide-Formot 160-4.5 Mcg 2 puff INHALATION RT-BID #120 puff 07/07/17 [Symbicort 160-4.5 Mcg Inhaler] Allergies Allergy/AdvReac Type Severity Reaction Status Date / Time levofloxacin [From Levaquin] AdvReac Chest Pain Verified 04/17/18 09:05 Review of Systems ROS Statement: Those systems with pertinent positive or pertinent negative responses have been documented in the HPI. ROS Other: All systems not noted in ROS Statement are negative. Past Medical History Past Medical History: Cancer, COPD, Pneumonia Additional Past Medical History / Comment(s): History of spontaneous pneumothorax in 2006, breast cancer in 2004. occasional oxygen at home as needed 2 liters nasal cannula History of Any Multi-Drug Resistant Organisms: None Reported Past Surgical History: Ablation, Breast Surgery Additional Past Surgical History / Comment(s): mastectomy with bilateral breast reconstruction in 2004, uterine ablation in 2009, spontaneous pneumothorax in 2006 with wedge resection and mechanical pleurodesis.pneumothorax june 2017 Past Anesthesia/Blood Transfusion Reactions: No Reported Reaction Past Psychological History: No Psychological Hx Reported Smoking Status: Former smoker Past Alcohol Use History: Occasional Past Drug Use History: None Reported - Past Family History Mother Family Medical History: Diabetes Mellitus, Hypertension Additional Family Medical History / Comment(s): mother is 84 Father Family Medical History: COPD Additional Family Medical History / Comment(s): lung cancer Sister(s) Additional Family Medical History / Comment(s): She has 4 sisters, 1 sister with history of breast cancer, and thyroid disorder, 1 sister with history of rheumatoid arthritis, and another sister with history of lupus. Brother(s) Additional Family Medical History / Comment(s): She has 3 brothers, 1 brother has diabetes mellitus type 2. General Exam - General Exam Comments Initial Comments: GENERAL: Patient is well-developed and well-nourished. Patient is nontoxic and well- hydrated and is in mild distress. ENT: Neck is soft and supple. No significant lymphadenopathy is noted. Oropharynx is clear. Moist mucous membranes. Neck has full range of motion without eliciting any pain. EYES: The sclera were anicteric and conjunctiva were pink and moist. Extraocular movements were intact and pupils were equal round and reactive to light. Eyelids were unremarkable. PULMONARY patient has diminished breath sounds throughout with expiratory wheezing CARDIOVASCULAR: Heart rate is tachycardic at about 120 beats a minute ABDOMEN: Soft and nontender with normal bowel sounds. No palpable organomegaly was noted. There is no palpable pulsatile mass. SKIN: Skin is clear with no lesions or rashes and otherwise unremarkable. NEUROLOGIC: Patient is alert and oriented x3. Cranial nerves II through XII are grossly intact. Motor and sensory are also intact. Normal speech, volume and content. Symmetrical smile. MUSCULOSKELETAL: Normal extremities with adequate strength and full range of motion. No lower extremity swelling or edema. No calf tenderness. LYMPHATICS: No significant lymphadenopathy is noted PSYCHIATRIC: Normal psychiatric evaluation. Normal interpersonal interactions appears functionally intact in deals appropriately with others. No signs of depression. No signs of anxiety. Limitations: physical limitation Course Vital Signs 04/17/18 04/17/18 04/17/18 08:46 09:00 09:15 Temperature 101.4 F H 102.3 F H 102.1 F H Pulse Rate 122 H 122 H 122 H Respiratory 25 H 26 H 22 Rate Blood Pressure 184/92 177/83 160/80 O2 Sat by Pulse 86 L 94 L 96 Oximetry 04/17/18 04/17/18 04/17/18 09:17 09:27 09:30 Temperature 101.9 F H Pulse Rate 120 H 123 H 121 H Respiratory 32 H 28 H 20 Rate Blood Pressure 167/83 O2 Sat by Pulse 96 Oximetry 04/17/18 04/17/18 04/17/18 09:37 09:46 09:51 Temperature 101.4 F H Pulse Rate 126 H 124 H 126 H Respiratory 30 H 20 26 H Rate Blood Pressure 155/79 O2 Sat by Pulse 97 Oximetry 04/17/18 04/17/18 04/17/18 09:59 10:12 10:35 Temperature 101.3 F H 100.3 F H Pulse Rate 128 H 128 H 118 H Respiratory 20 32 H 24 Rate Blood Pressure 150/76 129/57 O2 Sat by Pulse 97 89 L Oximetry Medical Decision Making - Medical Decision Making EKG shows sinus Bacterial infection tachycard at 124 bpm [place] interval is 132 QRS is 92 QT interval is 296 QTC is 425. Patient's EKG shows no acute abnormality. Patient's breathing was much improved after the treatments. Chest x-ray shows no acute abnormalities I started the patient antibiotics because of the fever and suspected bacterial infection. I wrote admitting orders I spoke with Dr. Resendiz and I consult to Dr. Persaud - Lab Data Result diagrams: 04/17/18 09:00 04/17/18 09:00 Lab Results 04/17/18 04/17/18 04/17/18 Range/Units 09:00 09:00 09:00 WBC 22.4 H (3.8-10.6) k/uL RBC 4.69 (3.80-5.40) m/uL Hgb 13.7 (11.4-16.0) gm/dL Hct 42.9 (34.0-46.0) % MCV 91.5 (80.0-100.0) fL MCH 29.1 (25.0-35.0) pg MCHC 31.9 (31.0-37.0) g/dL RDW 12.8 (11.5-15.5) % Plt Count 316 (150-450) k/uL Neutrophils % 87 % Lymphocytes % 7 % Monocytes % 4 % Eosinophils % 0 % Basophils % 0 % Neutrophils # 19.6 H (1.3-7.7) k/uL Lymphocytes # 1.6 (1.0-4.8) k/uL Monocytes # 1.0 (0-1.0) k/uL Eosinophils # 0.1 (0-0.7) k/uL Basophils # 0.0 (0-0.2) k/uL PT 9.7 (9.0-12.0) sec INR 1.0 (<1.2) APTT 23.4 (22.0-30.0) sec Sodium 131 L (137-145) mmol/L Potassium 4.6 (3.5-5.1) mmol/L Chloride 84 L (98-107) mmol/L Carbon Dioxide 39 H (22-30) mmol/L Anion Gap 8 mmol/L BUN 7 (7-17) mg/dL Creatinine 0.38 L (0.52-1.04) mg/dL Est GFR (CKD-EPI)AfAm >90 (>60 ml/min/1.73 sqM) Est GFR (CKD-EPI)NonAf >90 (>60 ml/min/1.73 sqM) Glucose 113 H (74-99) mg/dL Plasma Lactic Acid Chente (0.7-2.0) mmol/L Calcium 9.3 (8.4-10.2) mg/dL Total Bilirubin 0.6 (0.2-1.3) mg/dL AST 32 (14-36) U/L ALT 102 H (9-52) U/L Alkaline Phosphatase 125 (38-126) U/L Total Creatine Kinase (30-135) U/L CK-MB (CK-2) (0.0-2.4) ng/mL CK-MB (CK-2) Rel Index Troponin I (0.000-0.034) ng/mL Total Protein 6.5 (6.3-8.2) g/dL Albumin 4.1 (3.5-5.0) g/dL 04/17/18 04/17/18 Range/Units 09:00 09:40 WBC (3.8-10.6) k/uL RBC (3.80-5.40) m/uL Hgb (11.4-16.0) gm/dL Hct (34.0-46.0) % MCV (80.0-100.0) fL MCH (25.0-35.0) pg MCHC (31.0-37.0) g/dL RDW (11.5-15.5) % Plt Count (150-450) k/uL Neutrophils % % Lymphocytes % % Monocytes % % Eosinophils % % Basophils % % Neutrophils # (1.3-7.7) k/uL Lymphocytes # (1.0-4.8) k/uL Monocytes # (0-1.0) k/uL Eosinophils # (0-0.7) k/uL Basophils # (0-0.2) k/uL PT (9.0-12.0) sec INR (<1.2) APTT (22.0-30.0) sec Sodium (137-145) mmol/L Potassium (3.5-5.1) mmol/L Chloride (98-107) mmol/L Carbon Dioxide (22-30) mmol/L Anion Gap mmol/L BUN (7-17) mg/dL Creatinine (0.52-1.04) mg/dL Est GFR (CKD-EPI)AfAm (>60 ml/min/1.73 sqM) Est GFR (CKD-EPI)NonAf (>60 ml/min/1.73 sqM) Glucose (74-99) mg/dL Plasma Lactic Acid Chente 0.8 (0.7-2.0) mmol/L Calcium (8.4-10.2) mg/dL Total Bilirubin (0.2-1.3) mg/dL AST (14-36) U/L ALT (9-52) U/L Alkaline Phosphatase (38-126) U/L Total Creatine Kinase 21 L (30-135) U/L CK-MB (CK-2) 1.3 (0.0-2.4) ng/mL CK-MB (CK-2) Rel Index 6.2 Troponin I <0.012 (0.000-0.034) ng/mL Total Protein (6.3-8.2) g/dL Albumin (3.5-5.0) g/dL Disposition Clinical Impression: COPD with acute exacerbation Disposition: ADMITTED IP TO THIS HOSP Referrals: Abe Henderson DO [Primary Care Provider] - 1-2 days Time of Disposition: 11:16
[2018-04-17] MEDS ORDERED: PIPERACILLIN-TAZOBACTAM 3.375 GM in DEXTROSE/WATER 1 50ML.BAG IVPB STA (09:11)
[2018-04-17] MEDS: ALBUTEROL NEBULIZED 7.5 MG, IPRATROPIUM NEBULIZED 0.5 MG, SODIUM CHLORIDE 0.9% NEBULIZ ... INHALATION ONE ×6 (09:12→09:17)
[2018-04-17 09:30] LABS: Basophils % (A) 0 %; Eosinophils # (A) 0.1 k/uL (0-0.7); Eosinophils % (A) 0 %; HCT 42.9 % (34.0-46.0); HGB 13.7 gm/dL (11.4-16.0); Lymphocytes # (A) 1.6 k/uL (1.0-4.8); Lymphocytes % (A) 7 %; MCH 29.1 pg (25.0-35.0); MCHC 31.9 g/dL (31.0-37.0); MCV 91.5 fL (80.0-100.0); Mean Platelet Volume 6.9; Monocytes % (A) 4 %; Neutrophils # (A) 19.6 k/uL (1.3-7.7); Neutrophils % (A) 87 %; Platelet Count 316 k/uL (150-450); RBC 4.69 m/uL (3.80-5.40); RDW 12.8 % (11.5-15.5); WBC 22.4 k/uL (3.8-10.6)
[2018-04-17] MEDS ORDERED: LORazepam 2 MG/ML INJ IV STA (09:35)
[2018-04-17 09:39] LABS: Partial Thromboplastin Time 23.4 sec (22.0-30.0); Prothrombin Time 9.7 sec (9.0-12.0)
[2018-04-17 09:48] LABS: ALT 102 U/L (9-52); AST 32 U/L (14-36); Albumin 4.1 g/dL (3.5-5.0); Alkaline Phosphatase 125 U/L (38-126); Anion Gap 8 mmol/L; Blood Urea Nitrogen 7 mg/dL (7-17); Calcium 9.3 mg/dL (8.4-10.2); Carbon Dioxide 39 mmol/L (22-30); Chloride 84 mmol/L (98-107); Glucose 113 mg/dL (74-99); Potassium 4.6 mmol/L (3.5-5.1); Sodium 131 mmol/L (137-145); Total Bilirubin 0.6 mg/dL (0.2-1.3); Total Protein 6.5 g/dL (6.3-8.2)
[2018-04-17 09:50] LABS: Creatine Kinase 21 U/L (30-135)
[2018-04-17 10:03] LABS: Creatine Kinase MB 1.3 ng/mL (0.0-2.4); Troponin I <0.012 ng/mL (0.000-0.034)
--- NOTE | 2018-04-17 10:32 | XR ---
EXAMINATION TYPE: XR chest 2V DATE OF EXAM: 04/17/2018 COMPARISON: 04/05/2018 HISTORY: Shortness of breath TECHNIQUE: Frontal and lateral views of the chest are obtained. FINDINGS: Scattered senescent parenchymal changes noted. Hyperinflation compatible with COPD. No evidence for infiltrate. No evidence for atelectasis. Heart size is stable. Mediastinal structures are stable and grossly unremarkable. No evidence for hilar prominence. Degenerative changes dorsal spine. IMPRESSION: 1. No evidence for acute pulmonary disease.
[2018-04-17] MEDS: IPRATROPIUM-ALBUTEROL 3 ML NEB INHALATION SCH ×3 (11:26→19:29)
[2018-04-17] MEDS: methylPREDNISolone SOD SUCCI 125 MG/2 ML VIAL IV SCH ×2 (13:29→18:01)
--- NOTE | 2018-04-17 14:37 | P.CNPUL ---
History of Present Illness Consult date: 04/17/18 Requesting physician: Zoe Moyer Reason for consult: COPD Chief complaint: Cough wheezing shortness of breath History of present illness: This is a 57-year-old female with history of severe end-stage COPD,/emphysema, patient is O2 dependent, prednisone responsive, FEV1 is in the range of 26% at best, FEV1/FVC is 41%, patient has hyperinflation, and a relatively low DLCO consistent with severe emphysema. Patient normally sees Dr. Henderson for her COPD , and her primary care physician is Dr. Golden. Patient was just discharged about 6 days ago from [facility] when she was admitted initially with a similar episode of COPD exacerbation and tracheobronchitis. Has been compliant with her medications, does not smoke, she quit smoking over 10 years ago. Patient had previous screening for alpha-1 antitrypsin deficiency , and she was told it was negative by Dr. Henderson. At any rate patient came in with a few days' history of increased shortness of breath, cough, cough is productive with whitish phlegm, some wheezing, no chest pain, no fever, no chills, no hemoptysis. Denies any headaches, no blurred vision, no dizziness. No nausea no vomiting no abdominal pain, no melena, no hematemesis, no dysuria and no frequency no urgency. Chest x-ray in the ER showed no evidence of active disease, there was hyperinflation consistent with COPD. Patient was admitted, and this consult was initiated. I saw the patient immediately after she arrived to the medical floor. And orders were placed on the chart including bronchodilators, and steroids. Review of Systems 14 point review of systems were obtained, please refer to pertinent positives and negatives as per HPI. Otherwise remaining systems are negative. Past Medical History Past Medical History: Cancer, COPD, Pneumonia Additional Past Medical History / Comment(s): Pt recently admitted to [facility] on for acute exacerbation COPD/purulent tracheobronchitis. Other hx: Chronic respiratory failure with home O2 at 2L/NC ATC, R sided spontaneous pneumos in 2005 with surgery and again in 2017 with chest tube, breast cancer with bilateral mastectomies/reconstruction. History of Any Multi-Drug Resistant Organisms: None Reported Past Surgical History: Ablation, Breast Surgery Additional Past Surgical History / Comment(s): Bilateral mastectomies with bilateral breast reconstruction in 2004, uterine ablation in 2009, spontaneous pneumothorax in 2005 with wedge resection and mechanical pleurodesis, pneumothorax june 2017 with chest tube, colonoscopy. Past Anesthesia/Blood Transfusion Reactions: No Reported Reaction Smoking Status: Former smoker - Past Family History Mother Family Medical History: Diabetes Mellitus, Hypertension Additional Family Medical History / Comment(s): mother is 84 Father Family Medical History: COPD Additional Family Medical History / Comment(s): lung cancer Sister(s) Additional Family Medical History / Comment(s): She has 4 sisters, 1 sister with history of breast cancer, and thyroid disorder, 1 sister with history of rheumatoid arthritis, and another sister with history of lupus. Brother(s) Additional Family Medical History / Comment(s): She has 3 brothers, 1 brother has diabetes mellitus type 2. Medications and Allergies Home Medications Medication Instructions Recorded Confirmed Type Budesonide-Formot 160-4.5 Mcg 2 puff INHALATION RT-BID #120 puff 07/07/17 Rx [Symbicort 160-4.5 Mcg Inhaler] Albuterol Inhaler [Ventolin Hfa 1 - 2 puff INHALATION RT-Q6H PRN 04/05/18 History Inhaler] Albuterol Nebulized [Ventolin 2.5 mg INHALATION RT-QID 04/05/18 04/17/18 History Nebulized] Ipratropium Nebulized [Atrovent 0.5 mg INHALATION RT-QID 04/05/18 04/17/18 History Nebulized] guaiFENesin [Mucinex] 1,200 mg PO Q12HR PRN 04/17/18 04/17/18 History predniSONE See Taper PO DAILY 04/17/18 04/17/18 History Allergies Allergy/AdvReac Type Severity Reaction Status Date / Time levofloxacin [From Levaquin] AdvReac Chest Pain Verified 04/17/18 09:05 Physical Exam Vitals: Vital Signs Temp Pulse Resp BP Pulse Ox 04/17/18 13:35 24 04/17/18 12:32 101 H 18 112/58 04/17/18 12:00 98.9 F 108 H 108 H 107/65 89 L 04/17/18 11:38 109 H 22 04/17/18 11:26 109 H 18 04/17/18 10:35 100.3 F H 118 H 24 129/57 89 L 04/17/18 10:12 128 H 32 H 04/17/18 09:59 101.3 F H 128 H 20 150/76 97 04/17/18 09:51 126 H 26 H 04/17/18 09:46 101.4 F H 124 H 20 155/79 97 04/17/18 09:37 126 H 30 H 04/17/18 09:30 101.9 F H 121 H 20 167/83 96 04/17/18 09:27 123 H 28 H 04/17/18 09:17 120 H 32 H 04/17/18 09:15 102.1 F H 122 H 22 160/80 96 04/17/18 09:00 102.3 F H 122 H 26 H 177/83 94 L 04/17/18 08:46 101.4 F H 122 H 25 H 184/92 86 L Intake and Output 04/16/18 04/17/18 04/17/18 22:59 06:59 14:59 Other: Voiding Method Toilet Weight 47.627 kg Physical Exam: Revealed a 57-year-old female in mild to moderate respiratory distress. Head: Atraumatic, normocephalic. HEENT:[Neck is supple.] [No neck masses.] [No thyromegaly.] [No JVD.] PERRLA, EOMI, no icterus. Moist mucous membranes. Chest: [Extremely diminished breath sound bilaterally, some wheezing on forced expiratory maneuver was noted. No chest wall tenderness.] Cardiac Exam: [Normal S1 and S2, no S3 gallop, no murmur.] Abdomen: [Soft, nontender, no megaly, no rebound, no guarding, normal bowel sounds.] Extremities: [No clubbing, no edema, no cyanosis.] Neurological Exam: [No focal neurologic deficit.] Psychiatric: Normal mood affect and mental status examination. Lymphatics: No lymphadenopathy was appreciated. Musculoskeletal: Normal range of motion, no deformities noted. Results - Laboratory Findings CBC and BMP: 04/17/18 09:00 04/17/18 09:00 PT/INR, D-dimer PT 9.7 sec (9.0-12.0) 04/17/18 09:00 INR 1.0 (<1.2) 04/17/18 09:00 Abnormal lab findings: Abnormal Labs 04/17/18 04/17/18 04/17/18 09:00 09:00 09:00 WBC 22.4 H Neutrophils # 19.6 H Sodium 131 L Chloride 84 L Carbon Dioxide 39 H Creatinine 0.38 L Glucose 113 H ALT 102 H Total Creatine Kinase 21 L - Diagnostic Findings Chest x-ray: image reviewed (No evidence of active disease, chest x-ray is consistent with emphysema.) Assessment and Plan Assessment: Impression: 1: Acute hypoxemic respiratory failure secondary to acute COPD exacerbation. 2 acute exacerbation of severe COPD, mostly consistent with emphysema 3 remote history of spontaneous pneumothorax in 2006, previous wedge resection and mechanical pleurodesis for pneumothorax. 4 breast cancer in 2004. And bilateral breast reconstruction. Recommendation: Patient will be treated with bronchodilators in the form of DuoNeb, Pulmicort, Perforomist, and I will start Solu-Medrol 60 mg IV push every 6 hours. Suggest GI and DVT prophylaxis. We'll continue to follow. Time with Patient: Greater than 30
[2018-04-17] MEDS ORDERED: DEXTROSE 5%-0.9% NACL 1,000 ML IV SCH (16:00)
[2018-04-17] MEDS: PANTOPRAZOLE 40 MG TABLET PO SCH (16:26)
[2018-04-17] MEDS: ENOXAPARIN 40 MG/0.4 ML SYRINGE SQ SCH (16:26)
[2018-04-17 16:44] LABS: Appearance,Urine Clear (Clear); Bilirubin,Urine Negative (Negative); Blood,Urine Negative (Negative); Color,Urine Yellow; Glucose,Urine (UA) 1+ (Negative); Ketones,Urine Negative (Negative); Leukocyte Esterase,Urine Negative (Negative); Nitrite,Urine Negative (Negative); PH, Urine 6.5 (5.0-8.0); Protein,Urine Negative (Negative); Specific Gravity,Urine 1.015 (1.001-1.035); Urobilinogen,Urine <2.0 mg/dL (<2.0)
[2018-04-17] MEDS: ACETAMINOPHEN TAB 325 MG TAB PO PRN (16:50)
[2018-04-17 17:55] LABS: Glucose,Whole Blood 147 mg/dL (75-99)
[2018-04-17] MEDS: INSULIN ASPART 100 UNIT/ML 1 ML 10 ML VIAL SQ SCH ×2 (18:00→21:00)
[2018-04-17] MEDS: BUDESONIDE 1 MG/2 ML NEBU INHALATION SCH (19:29)
--- NOTE | 2018-04-17 20:40 | P.HPIM ---
History of Present Illness this is a pleasant 57 yo F with pmh of COPD, she was recently discharged from [facility] for COPD exacerbation , now presents with progressive dyspnea associated with intermittent chest pain over the last two days, which in the middle , non radiating, happens in 5-6 attacks each day and each attack about few minutes,with no specific relieving or precipitating factors , associated with coughing and purulent discharge, on admission pt was found to have leukocytosis of 24K , and fever of 102 , pt was started on zosyn in ED , pt looks dehydrated and tired . however pt denies diarrhea or dysuria, no abdominal pain , no nausea or vomiting , no headache or change in mental status, no leg pain or swelling , no rash , no signs or symptoms of cellulitis , no h/o wound or trauma Review of Systems CONSTITUTIONAL: no malaise, no fatigue. HEENT: No recent visual problems or hearing problems. Denied any sore throat. CARDIOVASCULAR: No orthopnea, PND, no palpitations, no syncope. GASTROINTESTINAL: No diarrhea, no nausea, no vomiting, no abdominal pain. Normoactive bowel sounds. NEUROLOGICAL: No headaches, no weakness, no numbness. HEMATOLOGICAL: Denies any bleeding or petechiae. GENITOURINARY: Denies any burning micturition, frequency, or urgency. MUSCULOSKELETAL/RHEUMATOLOGICAL: Denies any joint pain, swelling, or any muscle pain. ENDOCRINE: Denies any polyuria or polydipsia. Past Medical History Past Medical History: Cancer, COPD, Pneumonia Additional Past Medical History / Comment(s): Pt recently admitted to [facility] on for acute exacerbation COPD/purulent tracheobronchitis. Other hx: Chronic respiratory failure with home O2 at 2L/NC ATC, R sided spontaneous pneumos in 2005 with surgery and again in 2017 with chest tube, breast cancer with bilateral mastectomies/reconstruction. History of Any Multi-Drug Resistant Organisms: None Reported Past Surgical History: Ablation, Breast Surgery Additional Past Surgical History / Comment(s): Bilateral mastectomies with bilateral breast reconstruction in 2004, uterine ablation in 2009, spontaneous pneumothorax in 2005 with wedge resection and mechanical pleurodesis, pneumothorax june 2017 with chest tube, colonoscopy. Past Anesthesia/Blood Transfusion Reactions: No Reported Reaction Smoking Status: Former smoker - Past Family History Mother Family Medical History: Diabetes Mellitus, Hypertension Additional Family Medical History / Comment(s): mother is 84 Father Family Medical History: COPD Additional Family Medical History / Comment(s): lung cancer Sister(s) Additional Family Medical History / Comment(s): She has 4 sisters, 1 sister with history of breast cancer, and thyroid disorder, 1 sister with history of rheumatoid arthritis, and another sister with history of lupus. Brother(s) Additional Family Medical History / Comment(s): She has 3 brothers, 1 brother has diabetes mellitus type 2. Medications and Allergies Home Medications Medication Instructions Recorded Confirmed Type RX: Budesonide-Formot 160-4.5 Mcg 2 puff INHALATION RT-BID #120 puff 07/07/17 Rx [Symbicort 160-4.5 Mcg Inhaler] RX: Albuterol Inhaler [Ventolin 1 - 2 puff INHALATION RT-Q6H PRN 04/05/18 History Hfa Inhaler] RX: Albuterol Nebulized [Ventolin 2.5 mg INHALATION RT-QID 04/05/18 04/17/18 History Nebulized] RX: Ipratropium Nebulized 0.5 mg INHALATION RT-QID 04/05/18 04/17/18 History [Atrovent Nebulized] RX: guaiFENesin [Mucinex] 1,200 mg PO Q12HR PRN 04/17/18 04/17/18 History RX: predniSONE See Taper PO DAILY 04/17/18 04/17/18 History Allergies Allergy/AdvReac Type Severity Reaction Status Date / Time levofloxacin [From Levaquin] AdvReac Chest Pain Verified 04/17/18 09:05 Physical Exam Vitals: Vital Signs Temp Pulse Resp BP Pulse Ox 04/17/18 13:35 24 04/17/18 12:32 101 H 18 112/58 04/17/18 12:00 98.9 F 108 H 108 H 107/65 89 L 04/17/18 11:38 109 H 22 04/17/18 11:26 109 H 18 04/17/18 10:35 100.3 F H 118 H 24 129/57 89 L 04/17/18 10:12 128 H 32 H 04/17/18 09:59 101.3 F H 128 H 20 150/76 97 04/17/18 09:51 126 H 26 H 04/17/18 09:46 101.4 F H 124 H 20 155/79 97 04/17/18 09:37 126 H 30 H 04/17/18 09:30 101.9 F H 121 H 20 167/83 96 04/17/18 09:27 123 H 28 H 04/17/18 09:17 120 H 32 H 04/17/18 09:15 102.1 F H 122 H 22 160/80 96 04/17/18 09:00 102.3 F H 122 H 26 H 177/83 94 L 04/17/18 08:46 101.4 F H 122 H 25 H 184/92 86 L Intake and Output 04/16/18 04/17/18 04/17/18 22:59 06:59 14:59 Other: Voiding Method Toilet Weight 47.627 kg -GENERAL: The patient is alert and oriented x3, not in any acute distress. Well developed, well nourished. slurred speach. HEENT: Pupils are round and equally reacting to light. EOMI. No scleral icterus. No conjunctival pallor. Normocephalic, atraumatic. No pharyngeal erythema. No thyromegaly. CARDIOVASCULAR: S1 and S2 present. No murmurs, rubs, or gallops. -PULMONARY: Chest is tight, with short breath and scattered few wheezing , and decreased breath sounds ABDOMEN: Soft, nontender, nondistended, normoactive bowel sounds. No palpable organomegaly. MUSCULOSKELETAL: No joint swelling or deformity. -EXTREMITIES: No cyanosis, clubbing, or pedal edema. chronic left hemiplagia . her left foot moves in full ROM actively and passively NEUROLOGICAL: Gross neurological examination did not reveal any focal deficits. SKIN: No rashes. Results CBC & Chem 7: 04/17/18 09:00 04/17/18 09:00 Labs: Abnormal Lab Results - Last 24 Hours (Table) 04/17/18 04/17/18 04/17/18 Range/Units 09:00 09:00 09:00 WBC 22.4 H (3.8-10.6) k/uL Neutrophils # 19.6 H (1.3-7.7) k/uL Sodium 131 L (137-145) mmol/L Chloride 84 L (98-107) mmol/L Carbon Dioxide 39 H (22-30) mmol/L Creatinine 0.38 L (0.52-1.04) mg/dL Glucose 113 H (74-99) mg/dL ALT 102 H (9-52) U/L Total Creatine Kinase 21 L (30-135) U/L Thrombosis Risk Factor Assmnt - Choose All That Apply Any of the Below Risk Factors Present?: Yes Each Factor Represents 1 point: Abnormal pulmonary function (COPD), Age 41-60 years, Serious lung disease incl. pneumonia (< 1month) Other Risk Factors: No Other congenital or acquired thrombophilia - If yes, enter type in comment: No Thrombosis Risk Factor Assessment Total Risk Factor Score: 3 Thrombosis Risk Factor Assessment Level: Moderate Risk Assessment and Plan Plan: - acute COPD exacerbation , pulmonary consult is appreciated and they recommended breathing treatment and steroids. check influenza virus -chest pain , atypical , recurrent , pt with risk factors eg ex-smoker, serial troponins and cardilogy consult -high fever with dyspnea ,leukocytosis of 24K although pt was on steroid too, chest x-ray no infilterates, check UA as pt states she is peeing alot, pt is already started on zosyn Blood cultres are ordered , ID consult -Dehydration , pt is with dry mucous membranes, c/w iv fluids -mild hyponatremia, asymptomatic, Na 131 , f/u NA level DVT px lovenox GI px protonix prognosis is guraded given multiple comorbodies and their complexity time more than 40 min Time with Patient: Greater than 30
[2018-04-17 20:50] LABS: Glucose,Whole Blood 155 mg/dL (75-99)
[2018-04-17 21:51] LABS: Blood Urea Nitrogen 11 mg/dL (7-17); Calcium 8.9 mg/dL (8.4-10.2); Glucose 151 mg/dL (74-99); Magnesium 1.8 mg/dL (1.6-2.3); Potassium 4.9 mmol/L (3.5-5.1); Sodium 126 mmol/L (137-145)
[2018-04-17 21:57] LABS: Anion Gap 7 mmol/L; Carbon Dioxide 39 mmol/L (22-30)
[2018-04-17 22:02] LABS: Chloride 80 mmol/L (98-107)
[2018-04-17 22:46] LABS: Hemoglobin A1C 5.9 % (4.0-6.0)
[2018-04-18] MEDS: ACETAMINOPHEN TAB 325 MG TAB PO PRN ×2 (00:05→08:56)
[2018-04-18] MEDS: methylPREDNISolone SOD SUCCI 125 MG/2 ML VIAL IV SCH ×5 (00:06→23:22)
[2018-04-18] MEDS: FORMOTEROL FUMARATE 20 MCG/2 ML NEBU INHALATION SCH ×3 (00:21→18:58)
[2018-04-18 00:24] LABS: Anion Gap 7 mmol/L; Blood Urea Nitrogen 12 mg/dL (7-17); Carbon Dioxide 35 mmol/L (22-30); Chloride 82 mmol/L (98-107); Glucose 108 mg/dL (74-99); Potassium 5.1 mmol/L (3.5-5.1); Sodium 124 mmol/L (137-145)
[2018-04-18] MEDS ORDERED: SODIUM CHLORIDE 0.9% 1,000 ML IV SCH (01:00)
[2018-04-18] MEDS: SODIUM CHLORIDE 0.9% 1,000 ML IV SCH (01:10)
[2018-04-18 03:58] LABS: HCT 37.3 % (34.0-46.0); HGB 11.9 gm/dL (11.4-16.0); MCH 29.5 pg (25.0-35.0); MCV 92.1 fL (80.0-100.0); Mean Platelet Volume 6.7; Platelet Count 239 k/uL (150-450); RBC 4.05 m/uL (3.80-5.40); RDW 12.8 % (11.5-15.5); WBC 21.1 k/uL (3.8-10.6)
[2018-04-18 04:08] LABS: Blood Urea Nitrogen 10 mg/dL (7-17); Chloride 83 mmol/L (98-107); Glucose 125 mg/dL (74-99); Potassium 5.1 mmol/L (3.5-5.1); Sodium 127 mmol/L (137-145)
[2018-04-18 04:15] LABS: Anion Gap 2 mmol/L
[2018-04-18 04:22] LABS: Lymphocytes # (M) 0.42 k/uL (1.0-4.8); Monocytes # (M) 0.42 k/uL (0-1.0); Neutrophils # (M) 20.26 k/uL (1.3-7.7); Neutrophils % (M) 96 %; Nucleated Red Blood Cells 0 /100 WBC (0-0); Total Cells Counted 100
[2018-04-18 04:31] LABS: Carbon Dioxide 42 mmol/L (22-30)
[2018-04-18 06:59] LABS: Glucose,Whole Blood 123 mg/dL (75-99)
[2018-04-18] MEDS: IPRATROPIUM-ALBUTEROL 3 ML NEB INHALATION SCH ×5 (07:01→23:26)
[2018-04-18] MEDS: BUDESONIDE 1 MG/2 ML NEBU INHALATION SCH ×2 (07:01→18:58)
[2018-04-18] MEDS: INSULIN ASPART 100 UNIT/ML 1 ML 10 ML VIAL SQ SCH ×4 (07:16→20:34)
[2018-04-18] MEDS: ENOXAPARIN 40 MG/0.4 ML SYRINGE SQ SCH (08:50)
[2018-04-18] MEDS: PANTOPRAZOLE 40 MG TABLET PO SCH (08:50)
[2018-04-18 09:43] LABS: Anion Gap 6 mmol/L; Blood Urea Nitrogen 11 mg/dL (7-17); Calcium 9.2 mg/dL (8.4-10.2); Carbon Dioxide 39 mmol/L (22-30); Chloride 83 mmol/L (98-107); Glucose 221 mg/dL (74-99); Sodium 128 mmol/L (137-145)
[2018-04-18 11:17] LABS: Glucose,Whole Blood 117 mg/dL (75-99)
--- NOTE | 2018-04-18 11:36 | CONS ---
CONSULTATION REASON FOR CONSULT: Hyponatremia. HISTORY OF PRESENT ILLNESS: The patient is a 57-year-old female who has a history of COPD and presented to the hospital with complaints of shortness of breath, not feeling well. She had low oxygen saturations. She had a fever of 102 degrees as well. On initial admission, serum sodium was 131 and then it went down to 126 and 124. The patient is currently maintained on normal saline at 50 mL an hour. The patient was initially on higher dose of IV fluids. I do not see any other medications that were administered. The patient was started on steroid. She denies any previous history of kidney diseases. Blood sugar was not significantly elevated when the sodium dropped. The patient also stated that she had been drinking a lot of water recently over the last 1 to 2 days. She had not been eating much particularly proteins. PAST MEDICAL HISTORY: COPD, history of pneumonia, history of breast cancer with bilateral mastectomy and reconstruction surgery, history of pneumothorax. PAST SURGICAL HISTORY: Breast reconstruction surgery, uterine ablation, spontaneous pneumothorax with wedge resection, chest tube placement, colonoscopy. SOCIAL HISTORY: Positive for patient being a former smoker. No history of drug abuse or alcohol abuse. MEDICATIONS: Medications prior to admission included albuterol, Atrovent, Mucinex, prednisone. ALLERGIES: Allergies include LEVAQUIN. REVIEW OF SYSTEMS: As per HPI. Other systems negative. PHYSICAL EXAMINATION: On examination, patient is comfortable, awake, alert, oriented x3. She is not in any acute distress. Heart rate 104 per minute, blood pressure was 112/58. EXAMINATION OF THE HEART: S1, S2. EXAMINATION OF THE LUNGS: Bilateral breath sounds are heard. Abdomen is soft, nontender. Examination of lower extremities shows no significant edema. CHIEF NURSING EXECUTIVE exam is grossly intact. LABS: Labs show sodium 128, potassium 5.0, CO2 is 39, BUN of 11, serum creatinine 0.3. Hemoglobin 11.9 g/dL. ASSESSMENT: 1. Hyponatremia, which appears to be combination of hypovolemia as well as tea and toast syndrome. The patient had not been eating much over the last few days and had been drinking a lot of free water. Currently, she is appropriately maintained on oral fluid restriction. Since the sodium level is coming up, I doubt underlying SIADH as in that condition the sodium would drop with saline. I will also check a random urine osmolality and random urine sodium. Continue with the saline at 50 mL an hour for now. 2. Metabolic alkalosis secondary to chronic obstructive pulmonary disease, most likely compensatory. 3. Chronic obstructive pulmonary disease exacerbation. 4. Tracheobronchitis, maintained on antibiotics. PLAN: Continue saline at 50 mL an hour. Check random urine sodium and random urine osmolality. Check TSH level, cortisol level and maintain fluid restriction. Thank you for this consultation. I will continue to follow the patient with you during her hospitalization. MMODL / IJN: [id number] /
[2018-04-18 11:47] LABS: Anion Gap 7 mmol/L; Blood Urea Nitrogen 13 mg/dL (7-17); Calcium 9.5 mg/dL (8.4-10.2); Chloride 82 mmol/L (98-107); Glucose 131 mg/dL (74-99); Sodium 129 mmol/L (137-145)
--- NOTE | 2018-04-18 11:48 | P.PN ---
Subjective this is a pleasant 57 yo F with pmh of COPD, she was recently discharged from [facility] for COPD exacerbation , now presents with progressive dyspnea associated with intermittent chest pain over the last two days, which in the middle , non radiating, happens in 5-6 attacks each day and each attack about few minutes,with no specific relieving or precipitating factors , associated with coughing and purulent discharge, on admission pt was found to have leukocytosis of 24K , and fever of 102 , pt was started on zosyn in ED , pt looks dehydrated and tired . however pt denies diarrhea or dysuria, no abdominal pain , no nausea or vomiting , no headache or change in mental status, no leg pain or swelling , no rash , no signs or symptoms of cellulitis , no h/o wound or trauma 04/18/2018 Patient overnight dropped her sodium from 131 to 126, 124 and then 127, 128 , I discussed the case with the bedside nurse at night to call nephrology consult and put patient on fluid restriction, and hold IV fluids . patient was on IV fluids stopped temporarily and then restarted again by the pulmonary/ local company flatbed truck driver recommendation. Over patient remains asymptomatic regarding this. Her WBC was 20 1.1K running Patient this morning feels a little better, she still test and her chest is a still tight, and she still feels some pressure on her chest. No urine or bowel habits complaints, no fever View of systems CONSTITUTIONAL: no malaise, no fatigue. HEENT: No recent visual problems or hearing problems. Denied any sore throat. CARDIOVASCULAR: No orthopnea, PND, no palpitations, no syncope. GASTROINTESTINAL: No diarrhea, no nausea, no vomiting, no abdominal pain. Normoactive bowel sounds. NEUROLOGICAL: No headaches, no weakness, no numbness. HEMATOLOGICAL: Denies any bleeding or petechiae. GENITOURINARY: Denies any burning micturition, frequency, or urgency. MUSCULOSKELETAL/RHEUMATOLOGICAL: Denies any joint pain, swelling, or any muscle pain. ENDOCRINE: Denies any polyuria or polydipsia. Objective - Vital Signs Vital signs: Vital Signs Temp 97.9 F 04/18/18 05:35 Pulse 98 04/18/18 11:12 Resp 16 04/18/18 05:35 BP 112/58 04/18/18 05:35 Pulse Ox 91 L 04/18/18 09:00 Intake & Output 04/17/18 04/18/18 04/18/18 18:59 06:59 18:59 Intake Total 400 Balance 400 Weight 47.627 kg Intake: Intake, IV Titration 400 Amount Dextrose 5%-0.9% NaCl 1, 150 000 ml @ 75 mls/hr IV . [id number] [facility] Rx#:[id number] Sodium Chloride 0.9% 1, 250 000 ml @ 50 mls/hr IV . Q20H [facility] Rx#:[id number] Other: Voiding Method Toilet Toilet Toilet # Voids 1 - Exam -GENERAL: The patient is alert and oriented x3, not in any acute distress. Well developed, well nourished. slurred speach. HEENT: Pupils are round and equally reacting to light. EOMI. No scleral icterus. No conjunctival pallor. Normocephalic, atraumatic. No pharyngeal erythema. No thyromegaly. CARDIOVASCULAR: S1 and S2 present. No murmurs, rubs, or gallops. -PULMONARY: Chest is tight, with short breath and scattered few wheezing , and decreased breath sounds ABDOMEN: Soft, nontender, nondistended, normoactive bowel sounds. No palpable organomegaly. MUSCULOSKELETAL: No joint swelling or deformity. -EXTREMITIES: No cyanosis, clubbing, or pedal edema. chronic left hemiplagia . her left foot moves in full ROM actively and passively NEUROLOGICAL: Gross neurological examination did not reveal any focal deficits. SKIN: No rashes. - Labs CBC & Chem 7: 04/18/18 03:46 04/18/18 09:13 Labs: Abnormal Lab Results - Last 24 Hours (Table) 04/17/18 04/17/18 04/17/18 Range/Units 16:00 17:20 20:38 WBC (3.8-10.6) k/uL Neutrophils # (Manual) (1.3-7.7) k/uL Lymphocytes # (Manual) (1.0-4.8) k/uL Sodium (137-145) mmol/L Chloride (98-107) mmol/L Carbon Dioxide (22-30) mmol/L Creatinine (0.52-1.04) mg/dL Glucose (74-99) mg/dL POC Glucose (mg/dL) 147 H 155 H (75-99) mg/dL Urine Glucose (UA) 1+ H (Negative) 04/17/18 04/18/18 04/18/18 Range/Units 21:26 00:05 03:46 WBC 21.1 H (3.8-10.6) k/uL Neutrophils # (Manual) 20.26 H (1.3-7.7) k/uL Lymphocytes # (Manual) 0.42 L (1.0-4.8) k/uL Sodium 126 L 124 L (137-145) mmol/L Chloride 80 L* 82 L (98-107) mmol/L Carbon Dioxide 39 H 35 H (22-30) mmol/L Creatinine 0.40 L 0.30 L (0.52-1.04) mg/dL Glucose 151 H 108 H (74-99) mg/dL POC Glucose (mg/dL) (75-99) mg/dL Urine Glucose (UA) (Negative) 04/18/18 04/18/18 04/18/18 Range/Units 03:46 06:45 09:13 WBC (3.8-10.6) k/uL Neutrophils # (Manual) (1.3-7.7) k/uL Lymphocytes # (Manual) (1.0-4.8) k/uL Sodium 127 L 128 L (137-145) mmol/L Chloride 83 L 83 L (98-107) mmol/L Carbon Dioxide 42 H* 39 H (22-30) mmol/L Creatinine 0.30 L 0.33 L (0.52-1.04) mg/dL Glucose 125 H 221 H (74-99) mg/dL POC Glucose (mg/dL) 123 H (75-99) mg/dL Urine Glucose (UA) (Negative) 04/18/18 Range/Units 11:10 WBC (3.8-10.6) k/uL Neutrophils # (Manual) (1.3-7.7) k/uL Lymphocytes # (Manual) (1.0-4.8) k/uL Sodium (137-145) mmol/L Chloride (98-107) mmol/L Carbon Dioxide (22-30) mmol/L Creatinine (0.52-1.04) mg/dL Glucose (74-99) mg/dL POC Glucose (mg/dL) 117 H (75-99) mg/dL Urine Glucose (UA) (Negative) Microbiology - Last 24 Hours (Table) 04/17/18 09:00 Blood Culture - Preliminary Blood No Growth after 24 hours 04/17/18 16:00 Urine Culture - Preliminary Urine,Voided Assessment and Plan Plan: - acute COPD exacerbation , pulmonary consult is appreciated and they recommended breathing treatment and steroids. check influenza virus is negative -chest pain , atypical , recurrent , pt with risk factors eg ex-smoker, serial troponins and cardilogy consult -high fever with dyspnea ,leukocytosis of 24K although pt was on steroid too, chest x-ray no infilterates, check UA as pt states she is peeing alot, pt is already started on zosyn Blood cultres are ordered , ID consult -Dehydration , pt is with dry mucous membranes, c/w iv fluids -hyponatremia, asymptomatic, Na 131, down to 124 overnight and then up again this morning at 128 , f/u NA level . Call nephrology consult DVT px lovenox GI px protonix prognosis is guraded given multiple comorbodies and their complexity time more than 40 min
--- NOTE | 2018-04-18 11:54 | ECHOF ---
Referral Reason:chest pain and fever MEASUREMENTS -------- HEIGHT: 162.6 cm WEIGHT: 47.6 kg BP: 112/58 IVSd: 0.8 cm (0.6 - 1.1) LVIDd: 3.3 cm (3.9 - 5.3) LVPWd: 0.9 cm (0.6 - 1.1) IVSs: 1.2 cm LVIDs: 2.0 cm LVPWs: 1.3 cm LA Diam: 1.8 cm (2.7 - 3.8) Ao Diam: 2.4 cm (2.0 - 3.7) AV Cusp: 1.4 cm (1.5 - 2.6) LA Diam: 3.5 cm (2.7 - 3.8) MV EXCURSION: 15.488 mm (> 18.000) MV EF SLOPE: 91 mm/s (70 - 150) EPSS: 0.2 cm MV E Casimiro: 1.17 m/s MV DecT: 156 ms MV A Casimiro: 1.08 m/s MV E/A Ratio: 1.08 RAP: 5.00 mmHg RVSP: 24.97 mmHg FINDINGS -------- Sinus rhythm. Pt. Has Breast inplants LV size, wall thickness and systolic function are normal, with an EF greater than 55%. Overall left ventricular systolic function is normal with, an EF between 55 - 60 %. The right ventricle is normal in size. The left atrial size is normal. The right atrial size is normal. The aortic valve is trileaflet, and appears structurally normal. No aortic stenosis or regurgitation. Mild mitral annular calcification present. Mild mitral regurgitation is present. Mild tricuspid regurgitation present. There is no evidence of pulmonary hypertension. The right v entricular systolic pressure, as measured by Doppler, is 24.97mmHg. There is no pulmonic regurgitation present. The aortic root size is normal. There is no pericardial effusion. CONCLUSIONS -------- 1. Pt. Has Breast inplants 2. LV size, wall thickness and systolic function are normal, with an EF greater than 55%. 3. Overall left ventricular systolic function is normal with, an EF between 55 - 60 %. 4. The right ventricle is normal in size. 5. The left atrial size is normal. 6. The right atrial size is normal. 7. The aortic valve is trileaflet, and appears structurally normal. No aortic stenosis or regurgitati on. 8. Mild mitral annular calcification present. 9. Mild mitral regurgitation is present. 10. Mild tricuspid regurgitation present. 11. There is no evidence of pulmonary hypertension. 12. The right ventricular systolic pressure, as measured by Doppler, is 24.97mmHg. 13. There is no pulmonic regurgitation present. 14. The aortic root size is normal. 15. There is no pericardial effusion. INSURANCE UNDERWRITER SALES: Ninoska Herrera RDCS
[2018-04-18 12:23] LABS: Carbon Dioxide 40 mmol/L (22-30)
--- NOTE | 2018-04-18 12:43 | P.PN ---
Subjective Progress Note Date: 04/18/18 Principal diagnosis: Acute hypoxemic respiratory failure secondary to acute COPD exacerbation This is a 57-year-old female with history of severe end-stage COPD,/emphysema, patient is O2 dependent, prednisone responsive, FEV1 is in the range of 26% at best, FEV1/FVC is 41%, patient has hyperinflation, and a relatively low DLCO consistent with severe emphysema. Patient normally sees Dr. Henderson for her COPD , and her primary care physician is Dr. Golden. Patient was just discharged about 6 days ago from [facility] when she was admitted initially with a similar episode of COPD exacerbation and tracheobronchitis. Has been compliant with her medications, does not smoke, she quit smoking over 10 years ago. Patient had previous screening for alpha-1 antitrypsin deficiency , and she was told it was negative by Dr. Henderson. At any rate patient came in with a few days' history of increased shortness of breath, cough, cough is productive with whitish phlegm, some wheezing, no chest pain, no fever, no chills, no hemoptysis. Denies any headaches, no blurred vision, no dizziness. No nausea no vomiting no abdominal pain, no melena, no hematemesis, no dysuria and no frequency no urgency. Chest x-ray in the ER showed no evidence of active disease, there was hyperinflation consistent with COPD. Patient was admitted, and this consult was initiated. I saw the patient immediately after she arrived to the medical floor. And orders were placed on the chart including bronchodilators, and steroids. On 04/18/2018 patient seen again in follow-up. Not much improved since admission, patient is very dyspneic with conversation, more so with any exertion. Lung sounds are extremely diminished, with faint wheezing in the upper lobes. She has a persistent cough, but it is nonproductive. Her last episode of fever was yesterday at 10:30 in the morning with a picture of 100.3 F. Afebrile today. Blood and urine cultures are pending. Pulse ox on 3 L per nasal cannula is 91%, respirations are shallow. Remains significantly mid in terms of activity tolerance. Patient's serum sodium is improving, currently on IV 0.9 normal saline at a rate of 50 ML per hour, and today's serum sodium is 129 up from 126 from admission. Continue 1500 fluid restriction Objective - Vital Signs Vital signs: Vital Signs Temp 97.9 F 04/18/18 05:35 Pulse 98 04/18/18 11:12 Resp 16 04/18/18 05:35 BP 112/58 04/18/18 05:35 Pulse Ox 91 L 04/18/18 09:00 Intake & Output 04/17/18 04/18/18 04/18/18 18:59 06:59 18:59 Intake Total 400 Balance 400 Weight 47.627 kg Intake: Intake, IV Titration 400 Amount Dextrose 5%-0.9% NaCl 1, 150 000 ml @ 75 mls/hr IV . [id number] [facility] Rx#:[id number] Sodium Chloride 0.9% 1, 250 000 ml @ 50 mls/hr IV . Q20H [facility] Rx#:[id number] Other: Voiding Method Toilet Toilet Toilet # Voids 1 - Exam Physical Exam: Revealed a 57-year-old female in mild to moderate respiratory distress. Head: Atraumatic, normocephalic. HEENT:[Neck is supple.] [No neck masses.] [No thyromegaly.] [No JVD.] PERRLA, EOMI, no icterus. Moist mucous membranes. Chest: [Extremely diminished breath sound bilaterally, some wheezing on forced expiratory maneuver was noted. No chest wall tenderness.] Cardiac Exam: [Normal S1 and S2, no S3 gallop, no murmur.] Abdomen: [Soft, nontender, no megaly, no rebound, no guarding, normal bowel sounds.] Extremities: [No clubbing, no edema, no cyanosis.] Neurological Exam: [No focal neurologic deficit.] Psychiatric: Normal mood affect and mental status examination. Lymphatics: No lymphadenopathy was appreciated. Musculoskeletal: Normal range of motion, no deformities noted. - Labs CBC & Chem 7: 04/18/18 03:46 04/18/18 11:11 Labs: Abnormal Lab Results - Last 24 Hours (Table) 04/17/18 04/17/18 04/17/18 Range/Units 16:00 17:20 20:38 WBC (3.8-10.6) k/uL Neutrophils # (Manual) (1.3-7.7) k/uL Lymphocytes # (Manual) (1.0-4.8) k/uL Sodium (137-145) mmol/L Chloride (98-107) mmol/L Carbon Dioxide (22-30) mmol/L Creatinine (0.52-1.04) mg/dL Glucose (74-99) mg/dL POC Glucose (mg/dL) 147 H 155 H (75-99) mg/dL Urine Glucose (UA) 1+ H (Negative) 04/17/18 04/18/18 04/18/18 Range/Units 21:26 00:05 03:46 WBC 21.1 H (3.8-10.6) k/uL Neutrophils # (Manual) 20.26 H (1.3-7.7) k/uL Lymphocytes # (Manual) 0.42 L (1.0-4.8) k/uL Sodium 126 L 124 L (137-145) mmol/L Chloride 80 L* 82 L (98-107) mmol/L Carbon Dioxide 39 H 35 H (22-30) mmol/L Creatinine 0.40 L 0.30 L (0.52-1.04) mg/dL Glucose 151 H 108 H (74-99) mg/dL POC Glucose (mg/dL) (75-99) mg/dL Urine Glucose (UA) (Negative) 04/18/18 04/18/18 04/18/18 Range/Units 03:46 06:45 09:13 WBC (3.8-10.6) k/uL Neutrophils # (Manual) (1.3-7.7) k/uL Lymphocytes # (Manual) (1.0-4.8) k/uL Sodium 127 L 128 L (137-145) mmol/L Chloride 83 L 83 L (98-107) mmol/L Carbon Dioxide 42 H* 39 H (22-30) mmol/L Creatinine 0.30 L 0.33 L (0.52-1.04) mg/dL Glucose 125 H 221 H (74-99) mg/dL POC Glucose (mg/dL) 123 H (75-99) mg/dL Urine Glucose (UA) (Negative) 04/18/18 Range/Units 11:10 WBC (3.8-10.6) k/uL Neutrophils # (Manual) (1.3-7.7) k/uL Lymphocytes # (Manual) (1.0-4.8) k/uL Sodium (137-145) mmol/L Chloride (98-107) mmol/L Carbon Dioxide (22-30) mmol/L Creatinine (0.52-1.04) mg/dL Glucose (74-99) mg/dL POC Glucose (mg/dL) 117 H (75-99) mg/dL Urine Glucose (UA) (Negative) Microbiology - Last 24 Hours (Table) 04/17/18 09:00 Blood Culture - Preliminary Blood No Growth after 24 hours 04/17/18 16:00 Urine Culture - Preliminary Urine,Voided Assessment and Plan Plan: Assessment: 1: Acute hypoxemic respiratory failure secondary to acute COPD exacerbation. 2 acute exacerbation of severe COPD, mostly consistent with emphysema 3 remote history of spontaneous pneumothorax in 2006, previous wedge resection and mechanical pleurodesis for pneumothorax. 4 breast cancer in 2004. And bilateral breast reconstruction. Recommendation: Continue current medical treatment, continue IV Solu-Medrol, DuoNeb, Pulmicort, Perforomist, continue nebulized bronchodilators, with the results of final cultures. Continue IV 0.9 normal saline at a rate of 50 ML per hour, serum sodium is improving, nodular patient is intact, no confusion, no weakness no seizure activity. Maintain 1500 mL fluid restriction. Continue to follow I performed a history & physical examination of the patient and discussed their management with my nurse practitioner, Destinee Tay. I reviewed the nurse practitioner's note and agree with the documented findings and plan of care. Lung sounds are positive for very diminished lung sounds, and faint expiratory wheezes on forced exhale maneuver. The findings and the impression was discussed with the patient. I attest to the documentation by the nurse practitioner. Time with Patient: Less than 30
--- NOTE | 2018-04-18 14:37 | P.CRDCN ---
History of Present Illness History of present illness: Mrs. Rizvi is a pleasant 57-year-old female past medical history significant for COPD, history of breast cancer status post mastectomy and former nicotine dependence. She denies history of coronary artery disease, hypertension, diabetes mellitus or dyslipidemia. We are asked to see her in consultation for symptoms of chest discomfort. She states she presented to the hospital yesterday morning with symptoms of extreme shortness of breath. She wears home oxygen didn't seem that was helping her to catch her breath at all. She complains of symptoms of chest discomfort associated with shortness of breath described as a tight sensation in the midsternal region. The pain did not radiate down the arms, into the back, into the neck or the jaw. Other than the shortness of breath she denies symptoms of palpitations, nausea, vomiting, dizziness or diaphoresis. She was recently discharged from the hospital after having an exacerbation of COPD and tracheobronchitis. She states she's been taking all her medications as prescribed but her breathing has not improved. When she arrived at the hospital she was found to have a fever 101.4F, as high as 102.3F. WBC 22.4 on admission with a CO2 of 39, potassium 4.6, creatinine 0.3, sodium 131 and cardiac enzymes negative 3. Her sodium has consistently gone down since admission less than a minute was 120 4 repeat at 4 AM 127 and most recently resulted 11:00 this afternoon 129. Her CO2 continues to be elevated at 40. 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 Chest x-ray is negative for an acute cardiopulmonary process. Review of Systems At the time of my exam: CONSTITUTIONAL: Denies fever. Denies chills. EYES: Denies blurred vision. Denies vision changes. Denies eye pain. EARS, NOSE, MOUTH & THROAT: Denies headache. Denies sore throat. Denies ear pain. CARDIOVASCULAR: Denies chest pain. Complains of ongoing persistent shortness of breath. Denies orthopnea. Denies PND. Denies palpitations. RESPIRATORY: Denies cough. GASTROINTESTINAL: Denies abdominal pain. Denies diarrhea. Denies constipation. Denies nausea. Denies vomiting. MUSCULOSKELETAL: Denies myalgias. INTEGUMENTARY: Denies pruitis. Denies rash. NEUROLOGIC: Denies numbness. Denies tingling. Denies weakness. PSYCHIATRIC: Denies anxiety. Denies depression. ENDOCRINE: Denies fatigue. Denies weight change. Denies polydipsia. Denies polyurina. GENITOURINARY: Denies burning, hematuria or urgency with micturation. HEMATOLOGIC: Denies history of anemia. Denies bleeding. Past Medical History Past Medical History: Cancer, COPD, Pneumonia Additional Past Medical History / Comment(s): Pt recently admitted to [facility] on for acute exacerbation COPD/purulent tracheobronchitis. Other hx: Chronic respiratory failure with home O2 at 2L/NC ATC, R sided spontaneous pneumos in 2005 with surgery and again in 2017 with chest tube, breast cancer with bilateral mastectomies/reconstruction. History of Any Multi-Drug Resistant Organisms: None Reported Past Surgical History: Ablation, Breast Surgery Additional Past Surgical History / Comment(s): Bilateral mastectomies with bilateral breast reconstruction in 2004, uterine ablation in 2009, spontaneous pneumothorax in 2005 with wedge resection and mechanical pleurodesis, pneumothorax june 2017 with chest tube, colonoscopy. Past Anesthesia/Blood Transfusion Reactions: No Reported Reaction Smoking Status: Former smoker - Past Family History Mother Family Medical History: Diabetes Mellitus, Hypertension Additional Family Medical History / Comment(s): mother is 84 Father Family Medical History: COPD Additional Family Medical History / Comment(s): lung cancer Sister(s) Additional Family Medical History / Comment(s): She has 4 sisters, 1 sister with history of breast cancer, and thyroid disorder, 1 sister with history of rheumatoid arthritis, and another sister with history of lupus. Brother(s) Additional Family Medical History / Comment(s): She has 3 brothers, 1 brother has diabetes mellitus type 2. Medications and Allergies Home Medications Medication Instructions Recorded Confirmed Type Budesonide-Formot 160-4.5 Mcg 2 puff INHALATION RT-BID #120 puff 07/07/17 Rx [Symbicort 160-4.5 Mcg Inhaler] Albuterol Inhaler [Ventolin Hfa 1 - 2 puff INHALATION RT-Q6H PRN 04/05/18 History Inhaler] Albuterol Nebulized [Ventolin 2.5 mg INHALATION RT-QID 04/05/18 04/17/18 History Nebulized] Ipratropium Nebulized [Atrovent 0.5 mg INHALATION RT-QID 04/05/18 04/17/18 History Nebulized] guaiFENesin [Mucinex] 1,200 mg PO Q12HR PRN 04/17/18 04/17/18 History predniSONE See Taper PO DAILY 04/17/18 04/17/18 History Allergies Allergy/AdvReac Type Severity Reaction Status Date / Time levofloxacin [From Levaquin] AdvReac Chest Pain Verified 04/17/18 09:05 Physical Exam Vitals: Vital Signs Temp Pulse Pulse Resp BP Pulse Ox 04/18/18 11:12 98 04/18/18 11:04 100 04/18/18 09:00 91 L 04/18/18 07:26 100 04/18/18 07:17 104 H 04/18/18 07:16 104 H 04/18/18 07:04 98 91 L 04/18/18 05:35 97.9 F 99 16 112/58 93 L 04/17/18 21:30 98.3 F 92 16 113/62 94 L 04/17/18 19:41 105 H 20 04/17/18 19:31 106 H 20 04/17/18 15:54 108 H 20 04/17/18 15:43 107 H 20 Intake and Output 04/17/18 04/18/18 04/18/18 22:59 06:59 14:59 Intake Total 150 250 400 Balance 150 250 400 Intake: Intake, IV Titration 150 250 400 Amount Dextrose 5%-0.9% NaCl 1, 150 000 ml @ 75 mls/hr IV . [id number] [facility] Rx#:[id number] Sodium Chloride 0.9% 1, 250 400 000 ml @ 50 mls/hr IV . Q20H [facility] Rx#:[id number] Other: Voiding Method Toilet Toilet Toilet # Voids 1 1 Blood pressure 112/58 heart rate 99 afebrile maintaining oxygen saturation is a cannula GENERAL: This is a 57-year-old female in no apparent distress at the time of my examination. HEENT: Head is atraumatic, normocephalic. Pupils are equal, round. Sclerae anicteric. Conjunctivae are clear. Mucous membranes of the mouth are moist. Neck is supple. There is no jugular venous distention. No carotid bruit is heard. LUNGS: Faint bibasilar rales, inspiratory and expiratory wheezes, no rhonchi. Diminished air entry bilaterally. No chest wall tenderness is noted on palpation or with deep breathing. HEART: Regular rate and rhythm without murmurs, rubs or gallops. S1 and S2 heard. ABDOMEN: Soft, nontender. Bowel sounds are heard. No organomegaly noted. EXTREMITIES: No evidence of peripheral edema and no calf tenderness noted. VASCULAR: Radial and dorsalis pedis pulses palpated, no evidence of clubbing. NEUROLOGIC: Patient is awake, alert and oriented x3. Results 04/18/18 03:46 04/18/18 11:11 Cardiac Enzymes 04/17/18 04/17/18 Range/Units 16:07 21:26 Troponin I 0.019 0.020 (0.000-0.034) ng/mL CBC 04/18/18 Range/Units 03:46 WBC 21.1 H (3.8-10.6) k/uL RBC 4.05 (3.80-5.40) m/uL Hgb 11.9 (11.4-16.0) gm/dL Hct 37.3 (34.0-46.0) % Plt Count 239 (150-450) k/uL Comprehensive Metabolic Panel 04/17/18 04/18/18 04/18/18 Range/Units 21:26 00:05 03:46 Sodium 126 L 124 L 127 L (137-145) mmol/L Potassium 4.9 5.1 5.1 (3.5-5.1) mmol/L Chloride 80 L* 82 L 83 L (98-107) mmol/L Carbon Dioxide 39 H 35 H 42 H* (22-30) mmol/L BUN 11 12 10 (7-17) mg/dL Creatinine 0.40 L 0.30 L 0.30 L (0.52-1.04) mg/dL Glucose 151 H 108 H 125 H (74-99) mg/dL Calcium 8.9 9.0 9.0 (8.4-10.2) mg/dL 04/18/18 04/18/18 Range/Units 09:13 11:11 Sodium 128 L 129 L (137-145) mmol/L Potassium 5.0 5.0 (3.5-5.1) mmol/L Chloride 83 L 82 L (98-107) mmol/L Carbon Dioxide 39 H 40 H* (22-30) mmol/L BUN 11 13 (7-17) mg/dL Creatinine 0.33 L 0.30 L (0.52-1.04) mg/dL Glucose 221 H 131 H (74-99) mg/dL Calcium 9.2 9.5 (8.4-10.2) mg/dL Current Medications Generic Name Dose Route Start Last Admin Trade Name Freq PRN Reason Stop Dose Admin Acetaminophen 650 mg 04/17/18 16:38 04/18/18 08:56 Tylenol Tab PO 650 mg Q6HR PRN Administration Fever and/ or Pain Albuterol/Ipratropium 3 ml 04/17/18 12:00 04/18/18 11:02 Duoneb 0.5 Mg-3 Mg/3 Ml Soln INHALATION 3 ml RT-QID [facility] Administration Alprazolam 0.25 mg 04/17/18 13:01 Xanax PO TID PRN Anxiety Budesonide 1 mg 04/17/18 20:00 04/18/18 07:01 Pulmicort INHALATION 1 mg RT-BID [facility] Administration Enoxaparin Sodium 40 mg 04/17/18 14:45 04/18/18 08:50 Lovenox SQ 40 mg DAILY [facility] Administration Formoterol Fumarate 20 mcg 04/17/18 20:00 04/18/18 07:01 Perforomist INHALATION 20 mcg RT-BID [facility] Administration Sodium Chloride 1,000 mls @ 50 mls/hr 04/18/18 01:00 04/18/18 01:10 Saline 0.9% IV 50 mls/hr .Q20H [facility] Administration Piperacillin/Tazobactam/ 50 mls @ 12.5 mls/hr 04/18/18 16:00 Dextrose 3.375 gm/ IV Solution IVPB Q8HR [facility] Insulin Aspart 0 unit 04/17/18 17:30 04/18/18 12:26 Novolog SQ Not Given ACHS [facility] Protocol Methylprednisolone Sodium Succinate 60 mg 04/17/18 13:00 04/18/18 12:38 Solu-Medrol IV 60 mg Q6HR [facility] Administration Pantoprazole Sodium 40 mg 04/17/18 14:45 04/18/18 08:50 Protonix PO 40 mg [id number] [facility] Administration Intake and Output 04/17/18 04/18/18 04/18/18 22:59 06:59 14:59 Intake Total 150 250 400 Balance 150 250 400 Intake: Intake, IV Titration 150 250 400 Amount Dextrose 5%-0.9% NaCl 1, 150 000 ml @ 75 mls/hr IV . [id number] [facility] Rx#:[id number] Sodium Chloride 0.9% 1, 250 400 000 ml @ 50 mls/hr IV . Q20H [facility] Rx#:[id number] Other: Voiding Method Toilet Toilet Toilet # Voids 1 1 04/18/18 03:46 04/18/18 11:11 Assessment and Plan Assessment: ASSESSMENT 1. Chest pain, atypical. An acute coronary event has been ruled out with no EKG evidence of ischemia and normal cardiac enzymes. 2. Acute exacerbation of COPD 3. Leukocytosis 4. Significant hyponatremia 5. Febrile illness 6. Acute hypoxic respiratory failure. Very mild troponin and consists he most likely secondary to oxygen supply demand mismatch. PLAN Obtain 2-D echocardiogram and Doppler study to assess cardiac structure and function. Check proBNP and pro-calcitonin level. Repeat EKG. An acute coronary event has been ruled out. Ongoing medical management of acute exacerbation of COPD and respiratory failure. Thank you kindly for this consultation. Nurse Practitioner note has been reviewed, I agree with a documented findings and plan of care. Patient was seen and examined.
[2018-04-18] MEDS: ALPRAZolam 0.25 MG TAB PO PRN (14:42)
[2018-04-18] MEDS: PIPERACILLIN-TAZOBACTAM 3.375 GM in DEXTROSE/WATER 1 50ML.BAG IVPB SCH ×2 (16:33→23:22)
[2018-04-18 16:39] LABS: Blood Urea Nitrogen 15 mg/dL (7-17); Calcium 9.1 mg/dL (8.4-10.2); Chloride 81 mmol/L (98-107); Glucose 157 mg/dL (74-99); Potassium 5.3 mmol/L (3.5-5.1); Sodium 127 mmol/L (137-145)
[2018-04-18 16:46] LABS: Anion Gap 4 mmol/L
[2018-04-18 16:50] LABS: Carbon Dioxide 42 mmol/L (22-30)
[2018-04-18 17:30] LABS: Glucose,Whole Blood 144 mg/dL (75-99)
[2018-04-18 20:02] LABS: Glucose,Whole Blood 155 mg/dL (75-99)
[2018-04-18 20:58] LABS: ALT 74 U/L (9-52); AST 37 U/L (14-36); Albumin 3.3 g/dL (3.5-5.0); Alkaline Phosphatase 135 U/L (38-126); Bilirubin, Delta 0.2 mg/dL (0.0-0.2); Blood Urea Nitrogen 15 mg/dL (7-17); Calcium 9.1 mg/dL (8.4-10.2); Glucose 174 mg/dL (74-99); Potassium 5.3 mmol/L (3.5-5.1); Sodium 128 mmol/L (137-145); Total Bilirubin 0.2 mg/dL (0.2-1.3); Total Protein 5.6 g/dL (6.3-8.2)
[2018-04-18 21:04] LABS: Anion Gap 4 mmol/L
[2018-04-18 21:10] LABS: Carbon Dioxide 44 mmol/L (22-30); Chloride 80 mmol/L (98-107)
--- NOTE | 2018-04-18 23:20 | PN ---
PROGRESS NOTE DATE OF SERVICE: 04/18/2018 REASON FOR CONSULTATION: Fever and possible pneumonia. HISTORY OF PRESENT ILLNESS: The patient is a 57-year-old female who presented to the ER at [facility] 04/17/2018 with chief complaints of increasing shortness of breath. Her breathing has been getting worse for the last 2 days. The patient, who is normally on 2L oxygen at home. The patient says she upped her oxygen to 3L, still her sats were in the 80s. The patient has been complaining of shortness of breath with minimal exertion, even at rest. The patient also has a cough, but not bringing up any sputum. Denies having any chest pain. No URI symptoms. No abdominal pain. No nausea. No vomiting or any diarrhea. With these symptoms, the patient has been evaluated by the ER physician. The patient did have a chest x-ray, shows no evidence of acute pulmonary disease. The patient did have a fever of 101-102 degrees Fahrenheit on 04/17. The patient did have white count of 22,000. Her urine has been negative. Influenza serology was negative. The patient has been admitted to the hospital and the patient treated with Solu-Medrol in addition to the Zosyn. Infectious Disease was consulted for further recommendation regarding antibiotic therapy. REVIEW OF SYSTEMS: CONSTITUTIONAL: Positive for weakness along with the fever. EYES: No complaint. ENT: No complaint. RESPIRATORY: As per HPI. CARDIOVASCULAR: No complaint. GENITOURINARY: No complaint. GASTROINTESTINAL: No complaint. MUSCULOSKELETAL: No complaint.. INTEGUMENTARY: No complaint. PSYCHOLOGICAL: No complaint. ENDOCRINE: No complaint. No nausea or vomiting. PAST MEDICAL HISTORY: Significant for COPD, pneumonia, breast cancer, bilateral mastectomy with bilateral breast reconstruction, uterine ablation, history of spontaneous pneumothorax with wedge resection and mechanical pleurodesis, chest tube placement, colonoscopy. SOCIAL HISTORY: Remote history of smoking, quit about 10 years ago. No drinking or drug use. FAMILY HISTORY: Mother with history of diabetes and hypertension. Father with history of COPD, lung cancer. ALLERGIES: To Levofloxacin. MEDICATIONS: Include the patient is currently on: 1. Zosyn. 2. Protonix. 3. Solu-Medrol. 4. NovoLog. 5. Lovenox. 6. Pulmicort. 7. Xanax. 8. DuoNeb. 9. Tylenol. EXAMINATION: Her blood pressure is 123/68 with a pulse of 115, temperature of 98.5. She is 91% on 3L nasal cannula. General description is a middle-aged female up in the bed in no distress. No tachypnea or accessory muscle for respiration use. HEENT: No pallor or scleral icterus. Oral mucosa is moist. No pharyngeal erythema or thrush. NECK: Trachea central. No thyromegaly. LUNGS: Unlabored breathing with decreased intensity breath sounds. No wheeze or crackle. HEART: S1, S2. Regular rate and rhythm. ABDOMEN: Soft. No tenderness. No guarding or rigidity. EXTREMITIES: No edema of feet. SKIN: No rash or mass palpable. NEUROLOGICAL: Patient is awake, alert, oriented x3. Mood and affect normal. LABS: Hemoglobin is 11.9, white count 21.1. BUN of 15, creatinine 0.40. Electrolytes have been normal. Liver enzymes slightly elevated. Urine was negative. Influenza serology was negative. Chest x-ray on admission reported to be negative. DIAGNOSTIC IMPRESSION AND PLAN: Patient admitted to the hospital with increasing shortness of breath. The patient also noticed to have a fever of 102 degrees Fahrenheit. Predominantly respiratory symptoms likely to be clinical pneumonia in a patient who has been in the hospital. Will need to cover for the gram-negative pathogens which are likely organisms in a patient who currently has no active source of infection beside the lungs with abdomen soft on clinical examination. Urine has been negative. Influenza serology was negative. No evidence of any cellulitis or joint swelling. PLAN: 1. Will try to obtain sputum for Gram stain, culture and sensitivity. 2. Will check a chest x-ray . 3. Will keep the patient on Zosyn at 3.375 g q.8, to which her fever seems to have responded. 4. Will follow up on clinical condition and culture to further adjust medication if needed. Thank you for this consultation. Will follow this patient along with you. MMODL / IJN: [id number] /
[2018-04-19] MEDS: IPRATROPIUM-ALBUTEROL 3 ML NEB INHALATION PRN ×2 (02:00→16:14)
[2018-04-19] MEDS: ALPRAZolam 0.25 MG TAB PO PRN ×2 (02:00→16:36)
[2018-04-19] MEDS: methylPREDNISolone SOD SUCCI 125 MG/2 ML VIAL IV SCH ×3 (05:25→17:31)
[2018-04-19] MEDS: SODIUM CHLORIDE 0.9% 1,000 ML IV SCH ×2 (05:27→12:19)
[2018-04-19 06:41] LABS: Glucose,Whole Blood 180 mg/dL (75-99)
[2018-04-19 07:17] LABS: Basophils % (A) 0 %; Eosinophils # (A) 0.1 k/uL (0-0.7); Eosinophils % (A) 0 %; HCT 37.9 % (34.0-46.0); Hypochromasia Slight; Lymphocytes # (A) 0.3 k/uL (1.0-4.8); Lymphocytes % (A) 1 %; MCH 29.5 pg (25.0-35.0); MCHC 31.7 g/dL (31.0-37.0); MCV 93.1 fL (80.0-100.0); Mean Platelet Volume 7.1; Monocytes # (A) 0.6 k/uL (0-1.0); Monocytes % (A) 2 %; Neutrophils # (A) 26.1 k/uL (1.3-7.7); Neutrophils % (A) 96 %; Platelet Count 262 k/uL (150-450); RBC 4.07 m/uL (3.80-5.40); RDW 12.7 % (11.5-15.5)
[2018-04-19] MEDS: FORMOTEROL FUMARATE 20 MCG/2 ML NEBU INHALATION SCH ×2 (07:22→20:42)
[2018-04-19] MEDS: BUDESONIDE 1 MG/2 ML NEBU INHALATION SCH ×2 (07:22→20:42)
[2018-04-19] MEDS: IPRATROPIUM-ALBUTEROL 3 ML NEB INHALATION SCH ×4 (07:22→20:43)
[2018-04-19 07:25] LABS: Anion Gap 6 mmol/L; Blood Urea Nitrogen 13 mg/dL (7-17); Calcium 9.2 mg/dL (8.4-10.2); Chloride 81 mmol/L (98-107); Glucose 133 mg/dL (74-99); Potassium 5.3 mmol/L (3.5-5.1); Sodium 127 mmol/L (137-145)
[2018-04-19 07:29] LABS: WBC 27.3 k/uL (3.8-10.6)
[2018-04-19] MEDS: ENOXAPARIN 40 MG/0.4 ML SYRINGE SQ SCH (07:35)
[2018-04-19] MEDS: PANTOPRAZOLE 40 MG TABLET PO SCH (07:35)
[2018-04-19] MEDS: INSULIN ASPART 100 UNIT/ML 1 ML 10 ML VIAL SQ SCH ×4 (07:37→21:52)
[2018-04-19] MEDS: PIPERACILLIN-TAZOBACTAM 3.375 GM in DEXTROSE/WATER 1 50ML.BAG IVPB SCH ×3 (07:38→23:30)
[2018-04-19 07:49] LABS: Carbon Dioxide 40 mmol/L (22-30)
[2018-04-19] MEDS ORDERED: RX INFO: IV CONTRAST WAS GIVEN 1 EACH MISC MISCELLANE PRN (09:39)
--- NOTE | 2018-04-19 11:32 | P.PN ---
Subjective Progress Note Date: 04/19/18 Principal diagnosis: This is a 57-year-old female with a past medical history significant for COPD being followed up by nephrology because of hyponatremia and metabolic alkalosis likely from volume depletion from diuretics. She is on IV normal saline at 50 an hour. She remained short of breath on oxygen has dry cough. She had a computed tomography scan of the chest this morning. Her chest x-ray is negative for any volume overload. She is on fluid restriction at 2000 mL, has poor appetite. Workup has shown a low-sodium off 21 a urine osmolality of 557.. Serum cortisol is 7 mcg/dL and TSH is 0.5-8 within normal range. Patient was in recently and placed on Levaquin however she states last night the middle the night her shortness of breath came back and she is unable to get it to resolve. Patient states she's on 2 L oxygen at all times at home. Patient states she felt warm but didn't take her temperature. Patient states she does have a cough but no sputum production. Patient denies any chest pain or palpitations. Patient denies any back pain. Patient denies any headache patient denies numbness weakness. Patient denies any lightheadedness or dizziness. Patient denies any swelling in her legs or calf tenderness. Patient denied abdominal pain patient denies any nausea vomiting diarrhea. Objective - Vital Signs Vital signs: Vital Signs Temp 98.0 F 04/19/18 05:28 Pulse 100 04/19/18 11:20 Resp 18 04/19/18 08:00 BP 120/68 04/19/18 05:28 Pulse Ox 93 L 04/19/18 07:26 Intake & Output 04/18/18 04/19/18 04/19/18 18:59 06:59 18:59 Intake Total 400 650 Balance 400 650 Intake: Intake, IV Titration 400 650 Amount Piperacillin-Tazobactam 3 50 .375 gm In Dextrose/Water 1 50ml.bag @ 12.5 mls/hr IVPB Q8HR [facility] Rx#: [id number] Sodium Chloride 0.9% 1, 400 600 000 ml @ 50 mls/hr IV . Q20H [facility] Rx#:[id number] Other: Voiding Method Toilet Toilet Toilet # Voids 1 1 On examination she is awake alert oriented on oxygen slightly short of breath. HEENT exam JVP is not elevated. Neck is supple no facial asymmetry Heart sounds are unremarkable for any murmur rub gallop Abdomen is soft nontender nondistended Lungs are significant for bilateral wheezing as well as coarse crackles. Extremity exam was no edema Neurologically awake alert oriented somewhat anxious - Labs CBC & Chem 7: 04/19/18 06:40 04/19/18 06:40 Labs: Abnormal Lab Results - Last 24 Hours (Table) 04/18/18 04/18/18 04/18/18 Range/Units 11:11 11:11 13:45 WBC (3.8-10.6) k/uL Neutrophils # (1.3-7.7) k/uL Lymphocytes # (1.0-4.8) k/uL Sodium 129 L (137-145) mmol/L Potassium (3.5-5.1) mmol/L Chloride 82 L (98-107) mmol/L Carbon Dioxide 40 H* (22-30) mmol/L Creatinine 0.30 L (0.52-1.04) mg/dL Glucose 131 H (74-99) mg/dL POC Glucose (mg/dL) (75-99) mg/dL AST (14-36) U/L ALT (9-52) U/L Alkaline Phosphatase (38-126) U/L Total Protein (6.3-8.2) g/dL Albumin (3.5-5.0) g/dL Procalcitonin 0.43 H (0.02-0.09) ng/mL Ur Random Sodium 21 L (30-90) mmol/L 04/18/18 04/18/18 04/18/18 Range/Units 16:06 17:20 19:58 WBC (3.8-10.6) k/uL Neutrophils # (1.3-7.7) k/uL Lymphocytes # (1.0-4.8) k/uL Sodium 127 L (137-145) mmol/L Potassium 5.3 H (3.5-5.1) mmol/L Chloride 81 L (98-107) mmol/L Carbon Dioxide 42 H* (22-30) mmol/L Creatinine 0.34 L (0.52-1.04) mg/dL Glucose 157 H (74-99) mg/dL POC Glucose (mg/dL) 144 H 155 H (75-99) mg/dL AST (14-36) U/L ALT (9-52) U/L Alkaline Phosphatase (38-126) U/L Total Protein (6.3-8.2) g/dL Albumin (3.5-5.0) g/dL Procalcitonin (0.02-0.09) ng/mL Ur Random Sodium (30-90) mmol/L 04/18/18 04/19/18 04/19/18 Range/Units 20:13 06:40 06:40 WBC 27.3 H* (3.8-10.6) k/uL Neutrophils # 26.1 H (1.3-7.7) k/uL Lymphocytes # 0.3 L (1.0-4.8) k/uL Sodium 128 L 127 L (137-145) mmol/L Potassium 5.3 H 5.3 H (3.5-5.1) mmol/L Chloride 80 L* 81 L (98-107) mmol/L Carbon Dioxide 44 H* 40 H* (22-30) mmol/L Creatinine 0.40 L 0.40 L (0.52-1.04) mg/dL Glucose 174 H 133 H (74-99) mg/dL POC Glucose (mg/dL) (75-99) mg/dL AST 37 H (14-36) U/L ALT 74 H (9-52) U/L Alkaline Phosphatase 135 H (38-126) U/L Total Protein 5.6 L (6.3-8.2) g/dL Albumin 3.3 L (3.5-5.0) g/dL Procalcitonin (0.02-0.09) ng/mL Ur Random Sodium (30-90) mmol/L 04/19/18 Range/Units 06:40 WBC (3.8-10.6) k/uL Neutrophils # (1.3-7.7) k/uL Lymphocytes # (1.0-4.8) k/uL Sodium (137-145) mmol/L Potassium (3.5-5.1) mmol/L Chloride (98-107) mmol/L Carbon Dioxide (22-30) mmol/L Creatinine (0.52-1.04) mg/dL Glucose (74-99) mg/dL POC Glucose (mg/dL) 180 H (75-99) mg/dL AST (14-36) U/L ALT (9-52) U/L Alkaline Phosphatase (38-126) U/L Total Protein (6.3-8.2) g/dL Albumin (3.5-5.0) g/dL Procalcitonin (0.02-0.09) ng/mL Ur Random Sodium (30-90) mmol/L Microbiology - Last 24 Hours (Table) 04/17/18 09:00 Blood Culture - Preliminary Blood No Growth after 48 hours 04/17/18 16:00 Urine Culture - Final Urine,Voided 04/17/18 16:07 Blood Culture - Preliminary Blood No Growth after 24 hours 04/17/18 16:15 Blood Culture - Preliminary Blood No Growth after 24 hours Assessment and Plan Assessment: Impression 1. Hyponatremia secondary to volume depletion, sodium remains in the 127-128 range in spite of being on 50 mL of normal saline. 2. Metabolic alkalosis secondary to combination of component of compensation for because of respiratory acidosis from COPD as well as from steroids, (she was not on any diuretic) induced metabolic alkalosis as a primary process. Blood gases are not available therefore this is an assumption. 3. Severe so COPD. 4. History of bilateral mastectomy with reconstructive surgery. 5. History of pneumothorax and wedge resection. 6. Former smoker. Recommendation 1. Check orthostatic changes. 2. Fluid restrict at 1200 mL of liquids excluding any protein supplements. 3. Increase IV fluids to 75 an hour as the sodium is not improving. This will have the metabolic alkalosis as well 4. Maintain close watch on labs respiratory status. 5. Computed tomography scan has been done reported
[2018-04-19 11:42] LABS: Glucose,Whole Blood 148 mg/dL (75-99)
--- NOTE | 2018-04-19 13:02 | P.PN ---
Subjective Progress Note Date: 04/19/18 Principal diagnosis: Acute hypoxic respiratory failure secondary to an acute exacerbation of chronic obstructive pulmonary disease. This is a 57-year-old female with history of severe end-stage COPD,/emphysema, patient is O2 dependent, prednisone responsive, FEV1 is in the range of 26% at best, FEV1/FVC is 41%, patient has hyperinflation, and a relatively low DLCO consistent with severe emphysema. Patient normally sees Dr. Henderson for her COPD , and her primary care physician is Dr. Golden. Patient was just discharged about 6 days ago from [facility] when she was admitted initially with a similar episode of COPD exacerbation and tracheobronchitis. Has been compliant with her medications, does not smoke, she quit smoking over 10 years ago. Patient had previous screening for alpha-1 antitrypsin deficiency , and she was told it was negative by Dr. Henderson. At any rate patient came in with a few days' history of increased shortness of breath, cough, cough is productive with whitish phlegm, some wheezing, no chest pain, no fever, no chills, no hemoptysis. Denies any headaches, no blurred vision, no dizziness. No nausea no vomiting no abdominal pain, no melena, no hematemesis, no dysuria and no frequency no urgency. Chest x-ray in the ER showed no evidence of active disease, there was hyperinflation consistent with COPD. Patient was admitted, and this consult was initiated. I saw the patient immediately after she arrived to the medical floor. And orders were placed on the chart including bronchodilators, and steroids. On 04/18/2018 patient seen again in follow-up. Not much improved since admission, patient is very dyspneic with conversation, more so with any exertion. Lung sounds are extremely diminished, with faint wheezing in the upper lobes. She has a persistent cough, but it is nonproductive. Her last episode of fever was yesterday at 10:30 in the morning with a picture of 100.3 F. Afebrile today. Blood and urine cultures are pending. Pulse ox on 3 L per nasal cannula is 91%, respirations are shallow. Remains significantly mid in terms of activity tolerance. Patient's serum sodium is improving, currently on IV 0.9 normal saline at a rate of 50 ML per hour, and today's serum sodium is 129 up from 126 from admission. Continue 1500 fluid restriction. The patient is seen again today 04/29/2018 in follow-up on the regular medical floor. She is currently sitting up in a chair at the bedside. She is awake and alert in no acute distress. Maintaining O2 saturations in the 90s on 3 L/m per nasal cannula. She states she is not breathing much better today as compared to yesterday. She's been quite slow to progress. Computed tomography scan of the chest is pending. Blood cultures reveal no growth. White count 27.3. Hemoglobin 12.0. Sodium 127. Potassium 5.3. Creatinine 0.40. Objective - Vital Signs Vital signs: Vital Signs Temp 98.0 F 04/19/18 05:28 Pulse 100 04/19/18 11:20 Resp 18 04/19/18 08:00 BP 120/68 04/19/18 05:28 Pulse Ox 92 L 04/19/18 09:00 Intake & Output 04/18/18 04/19/18 04/19/18 18:59 06:59 18:59 Intake Total 400 650 Balance 400 650 Intake: Intake, IV Titration 400 650 Amount Piperacillin-Tazobactam 3 50 .375 gm In Dextrose/Water 1 50ml.bag @ 12.5 mls/hr IVPB Q8HR [facility] Rx#: [id number] Sodium Chloride 0.9% 1, 400 600 000 ml @ 50 mls/hr IV . Q20H [facility] Rx#:[id number] Other: Voiding Method Toilet Toilet Toilet # Voids 1 1 - Exam Physical Exam: Revealed a 57-year-old female in mild respiratory distress. Head: Atraumatic, normocephalic. HEENT:[Neck is supple.] [No neck masses.] [No thyromegaly.] [No JVD.] PERRLA, EOMI, no icterus. Moist mucous membranes. Chest: [Extremely diminished breath sound bilaterally, some wheezing on forced expiratory maneuver was noted. No chest wall tenderness.] Cardiac Exam: [Normal S1 and S2, no S3 gallop, no murmur.] Abdomen: [Soft, nontender, no megaly, no rebound, no guarding, normal bowel sounds.] Extremities: [No clubbing, no edema, no cyanosis.] Neurological Exam: [No focal neurologic deficit.] Psychiatric: Normal mood affect and mental status examination. Lymphatics: No lymphadenopathy was appreciated. Musculoskeletal: Normal range of motion, no deformities noted. - Labs CBC & Chem 7: 04/19/18 06:40 04/19/18 06:40 Labs: Abnormal Lab Results - Last 24 Hours (Table) 04/18/18 04/18/18 04/18/18 Range/Units 11:11 11:11 13:45 WBC (3.8-10.6) k/uL Neutrophils # (1.3-7.7) k/uL Lymphocytes # (1.0-4.8) k/uL Sodium 129 L (137-145) mmol/L Potassium (3.5-5.1) mmol/L Chloride 82 L (98-107) mmol/L Carbon Dioxide 40 H* (22-30) mmol/L Creatinine 0.30 L (0.52-1.04) mg/dL Glucose 131 H (74-99) mg/dL POC Glucose (mg/dL) (75-99) mg/dL AST (14-36) U/L ALT (9-52) U/L Alkaline Phosphatase (38-126) U/L Total Protein (6.3-8.2) g/dL Albumin (3.5-5.0) g/dL Procalcitonin 0.43 H (0.02-0.09) ng/mL Ur Random Sodium 21 L (30-90) mmol/L 04/18/18 04/18/18 04/18/18 Range/Units 16:06 17:20 19:58 WBC (3.8-10.6) k/uL Neutrophils # (1.3-7.7) k/uL Lymphocytes # (1.0-4.8) k/uL Sodium 127 L (137-145) mmol/L Potassium 5.3 H (3.5-5.1) mmol/L Chloride 81 L (98-107) mmol/L Carbon Dioxide 42 H* (22-30) mmol/L Creatinine 0.34 L (0.52-1.04) mg/dL Glucose 157 H (74-99) mg/dL POC Glucose (mg/dL) 144 H 155 H (75-99) mg/dL AST (14-36) U/L ALT (9-52) U/L Alkaline Phosphatase (38-126) U/L Total Protein (6.3-8.2) g/dL Albumin (3.5-5.0) g/dL Procalcitonin (0.02-0.09) ng/mL Ur Random Sodium (30-90) mmol/L 18 04/19/18 04/19/18 Range/Units 20:13 06:40 06:40 WBC 27.3 H* (3.8-10.6) k/uL Neutrophils # 26.1 H (1.3-7.7) k/uL Lymphocytes # 0.3 L (1.0-4.8) k/uL Sodium 128 L 127 L (137-145) mmol/L Potassium 5.3 H 5.3 H (3.5-5.1) mmol/L Chloride 80 L* 81 L (98-107) mmol/L Carbon Dioxide 44 H* 40 H* (22-30) mmol/L Creatinine 0.40 L 0.40 L (0.52-1.04) mg/dL Glucose 174 H 133 H (74-99) mg/dL POC Glucose (mg/dL) (75-99) mg/dL AST 37 H (14-36) U/L ALT 74 H (9-52) U/L Alkaline Phosphatase 135 H (38-126) U/L Total Protein 5.6 L (6.3-8.2) g/dL Albumin 3.3 L (3.5-5.0) g/dL Procalcitonin (0.02-0.09) ng/mL Ur Random Sodium (30-90) mmol/L 18 04/19/18 Range/Units 06:40 11:38 WBC (3.8-10.6) k/uL Neutrophils # (1.3-7.7) k/uL Lymphocytes # (1.0-4.8) k/uL Sodium (137-145) mmol/L Potassium (3.5-5.1) mmol/L Chloride (98-107) mmol/L Carbon Dioxide (22-30) mmol/L Creatinine (0.52-1.04) mg/dL Glucose (74-99) mg/dL POC Glucose (mg/dL) 180 H 148 H (75-99) mg/dL AST (14-36) U/L ALT (9-52) U/L Alkaline Phosphatase (38-126) U/L Total Protein (6.3-8.2) g/dL Albumin (3.5-5.0) g/dL Procalcitonin (0.02-0.09) ng/mL Ur Random Sodium (30-90) mmol/L Microbiology - Last 24 Hours (Table) 04/17/18 09:00 Blood Culture - Preliminary Blood No Growth after 48 hours 04/17/18 16:00 Urine Culture - Final Urine,Voided 04/17/18 16:07 Blood Culture - Preliminary Blood No Growth after 24 hours 04/17/18 16:15 Blood Culture - Preliminary Blood No Growth after 24 hours Assessment and Plan Assessment: Assessment: 1: Acute hypoxemic respiratory failure secondary to acute COPD exacerbation. 2 acute exacerbation of severe COPD, mostly consistent with emphysema 3 remote history of spontaneous pneumothorax in 2006, previous wedge resection and mechanical pleurodesis for pneumothorax. 4 breast cancer in 2004. And bilateral breast reconstruction. Recommendation: The patient was seen and evaluated by Dr. Persaud. We'll continue with her current treatment plan for now. Computed tomography scan of the chest is pending. We will continue to follow and make further recommendations based on her clinical status. I, the cosigning physician, performed a history & physical examination of the patient. Lungs sounds with few scattered rhonchi, bilateral end expiratory wheeze Maintaining good O2 saturations in the 90s on 3 L/m per nasal cannula. I discussed the assessment and plan of care with my nurse practitioner, Taylor Michelle. I attest to the above note as dictated by her.
--- NOTE | 2018-04-19 13:31 | CT ---
EXAMINATION TYPE: CT chest w con DATE OF EXAM: 04/19/2018 COMPARISON: 07/03/2017 HISTORY: COPD, hyponatremia and hilar fullness on chest radiograph CT DLP: 119.7 mGycm. Automated Exposure Control for Dose Reduction was Utilized. TECHNIQUE: CT scan of the thorax is performed following with IV Contrast, patient injected with 100 mL of Isovue 300. FINDINGS: LUNGS: There is diffuse peribronchial cuffing and multifocal patchy tree-in-bud opacities throughout both lungs. Some nodular densities are seen at the right lung base that are favored to represent infe ctious or inflammatory etiology given the adjacent findings. Left upper lung nodular opacity are also seen as well as subpleural right apical opacities. Calcified scarring within the right lung apex is noted. Background mild centrilobular emphysematous changes seen. More focal consolidation at the righ t lung base displaced patchy areas of hypoattenuation suspicious for pneumonia. The previously seen p neumothorax on the prior exam of 07/03/2017 has resolved in the interim. MEDIASTINUM: There is bilateral hilar adenopathy with right anterior infrahilar lymph node measuring up to 1.1 cm in short axis and left measuring up to 1.2 cm in short axis. Other subcarinal, pretrache al, and precarinal prominent lymph nodes are seen.. No pericardial effusion is seen. OTHER: Bilateral breast implants are present. Minimal degenerative changes of the thoracic spine are noted. No axillary adenopathy. IMPRESSION: Bilateral diffuse peribronchial cuffing and tree-in-bud opacities as well as diffuse nodu lar opacities. Findings favor infectious or inflammatory small airway disease. Follow-up after treatm ent is recommended to ensure no underlying pulmonary nodule given the multiple bilateral pulmonary no dules. Hilar mediastinal adenopathy is likely reactive to the above process.
[2018-04-19] MEDS: guaiFENesin 600 MG TABLET.ER PO SCH ×2 (15:00→21:24)
[2018-04-19 17:18] LABS: Glucose,Whole Blood 179 mg/dL (75-99)
[2018-04-19 18:35] LABS: Glucose,Whole Blood 234 mg/dL (75-99)
[2018-04-19 18:48] LABS: ABG Oxygen Saturation 81.3 % (94-97); ABG PO2 53 mmHg (83-108)
[2018-04-19 18:52] LABS: ABG PH 7.12 (7.35-7.45)
[2018-04-19 18:53] LABS: ABG PCO2 >120 mmHg (35-45)
[2018-04-19] MEDS ORDERED: PROPOFOL 100 ML IV ONE (19:08)
[2018-04-19] MEDS ORDERED: NOREPINEPHRIN 4 MG-0.9% NS PMX 4 MG/250 ML ML IV ONE (19:25)
--- NOTE | 2018-04-19 19:25 | XR ---
EXAMINATION TYPE: XR chest 1V portable DATE OF EXAM: 04/19/2018 COMPARISON: 04/17/2018 HISTORY: Shortness of breath TECHNIQUE: Single frontal view of the chest is obtained. FINDINGS: ET tube 6 cm above heraclio. NG tube noted. Hyperinflation compatible COPD. Pulmonary arteri es are enlarged correlate for pulmonary arterial hypertension. Biapical pleural thickening noted. Lym phadenopathy in the hilum not excluded. Interstitial pattern noted some which appears slightly nodula r. IMPRESSION: COPD with interstitial pattern which may be nodular. Findings could been the basis of in fectious or inflammatory etiology. Recent CT scan documents multiple pulmonary nodules. Neoplastic pr ocess not excluded.
[2018-04-19] MEDS ORDERED: SODIUM CHLORIDE 0.9% 1,000 ML IV ONE ×3 (19:31→21:20)
[2018-04-19] MEDS: PROPOFOL 1,000 MG in EMPTY BAG 1 BAG IV SCH (19:40)
[2018-04-19 19:59] LABS: Appearance,Urine Clear (Clear); Bilirubin,Urine Negative (Negative); Blood,Urine Small (Negative); Color,Urine Yellow; Glucose,Urine (UA) 2+ (Negative); Ketones,Urine Negative (Negative); Leukocyte Esterase,Urine Negative (Negative); Nitrite,Urine Negative (Negative); Protein,Urine 1+ (Negative); RBC,Urine 33 /hpf (0-5); Specific Gravity,Urine 1.038 (1.001-1.035); Urobilinogen,Urine <2.0 mg/dL (<2.0); WBC,Urine 2 /hpf (0-5)
--- NOTE | 2018-04-19 20:19 | PN ---
PROGRESS NOTE DATE OF SERVICE: April 19, 2018 REASON FOR FOLLOW UP: Fever, possible pneumonia. INTERVAL HISTORY: The patient was seen on rounds early this after. The patient has been complaining of some chest pain. She continues to have a cough but not bringing up any sputum. Breathing seemed to be at baseline. No worsening. No nausea. No vomiting or any diarrhea. EXAMINATION: Blood pressure 163/97 with a pulse of 100, temperature 97.2. She is 99% on 3 L nasal cannula. General description is a middle-aged female up in the bed in no distress. Respiratory system: Unlabored breathing, decreased intensive breath sounds in the bases. No significant wheeze. Heart S1, S2. Regular rate and rhythm. Abdomen soft, no tenderness. LABS: Hemoglobin is 12.1, white count 27.3, BUN of 13, creatinine 0.40. Blood culture has been negative. The patient did have a CT of the chest which did show bilateral diffuse peribronchial coughing and opacities as well as diffuse nodular opacities finding fairly infectious small airway disease. DIAGNOSTIC IMPRESSION/PLAN: The patient admitted to the hospital with difficulty in breathing and cough. The patient did have a fever, likely chronic obstructive pulmonary disease in a patient with a component of possible pneumonia with diffuse pneumonia seen on the CT. Currently covered with Zosyn, will be added in view if her levofloxacin allergy. She may benefit from a bronch and lavage as well as cultures that will happen antibiotic therapy. Family present at bedside. Their questions were answered. MMODL / IJN: [id number] /
[2018-04-19 20:33] LABS: ABG PCO2 91 mmHg (35-45); ABG PH 7.31 (7.35-7.45); ABG PO2 396 mmHg (83-108)
[2018-04-19 20:34] LABS: ABG Base Excess 14.8 mmol/L; ABG HCO3 44 mmol/L (21-25); ABG Oxygen Saturation 99.5 % (94-97)
[2018-04-19] MEDS ORDERED: VANCOMYCIN IV PER PHARMACY 1 EACH MISC MISCELLANE PRN (20:41)
[2018-04-19 20:42] LABS: Basophils # (A) 0.1 k/uL (0-0.2); Basophils % (A) 0 %; Eosinophils # (A) 0.2 k/uL (0-0.7); Eosinophils % (A) 1 %; HCT 37.2 % (34.0-46.0); HGB 11.5 gm/dL (11.4-16.0); Hypochromasia Marked; Lymphocytes # (A) 0.1 k/uL (1.0-4.8); Lymphocytes % (A) 0 %; MCH 29.3 pg (25.0-35.0); MCHC 30.8 g/dL (31.0-37.0); Mean Platelet Volume 6.9; Monocytes # (A) 0.9 k/uL (0-1.0); Monocytes % (A) 3 %; Neutrophils # (A) 34.3 k/uL (1.3-7.7); Neutrophils % (A) 96 %; Platelet Count 267 k/uL (150-450); RBC 3.92 m/uL (3.80-5.40); RDW 12.5 % (11.5-15.5)
[2018-04-19] MEDS ORDERED: NALOXONE 0.4 MG/ML 1 ML VIAL IV PRN (20:42)
[2018-04-19 20:44] LABS: WBC 35.7 k/uL (3.8-10.6)
[2018-04-19 20:49] LABS: ALT 69 U/L (9-52); AST 42 U/L (14-36); Albumin 2.8 g/dL (3.5-5.0); Alkaline Phosphatase 95 U/L (38-126); Blood Urea Nitrogen 19 mg/dL (7-17); Calcium 8.7 mg/dL (8.4-10.2); Chloride 83 mmol/L (98-107); Glucose 190 mg/dL (74-99); Potassium 5.5 mmol/L (3.5-5.1); Sodium 130 mmol/L (137-145); Total Bilirubin 0.3 mg/dL (0.2-1.3); Total Protein 4.9 g/dL (6.3-8.2)
[2018-04-19] MEDS ORDERED: VANCOMYCIN 1,250 MG in SODIUM CHLORIDE 0.9% 250 ML IVPB ONE (21:00)
[2018-04-19] MEDS ORDERED: DOXYCYCLINE MONOHYDRATE 100 MG CAPSULE PO SCH (21:00)
[2018-04-19 21:04] LABS: Carbon Dioxide 42 mmol/L (22-30)
[2018-04-19 21:05] LABS: Anion Gap 5 mmol/L
[2018-04-19] MEDS: NOREPINEPHRIN 4 MG-0.9% NS PMX 4 MG/250 ML ML IV SCH (21:16)
[2018-04-19] MEDS: DOXYCYCLINE 100 MG in SODIUM CHLORIDE 0.9% 100 ML IVPB SCH (21:37)
[2018-04-19 21:50] LABS: Glucose,Whole Blood 151 mg/dL (75-99)
[2018-04-19] MEDS ORDERED: INSULIN ASPART 100 UNIT/ML 1 ML 10 ML VIAL SQ SCH (22:15)
--- NOTE | 2018-04-19 22:16 | P.PN ---
Progress Note - Text Progress Note Date: 04/19/18 Patient was seen earlier around 2 PM, and she was doing relatively well, intermittent episodes of shortness of breath were reported, but overall the patient was sitting in bed, and we had a fairly long conversation about her overall severe COPD, and I discussed with her son and with the patient her last PFTs from the office showing severe emphysema, FEV1 is in the range of 26%, gold stage IV COPD. We Even Discussed the Issue of Lung Transplantation Which Was Apparently Discussed in the past by Dr. Henderson with the Patient On Outpatient Basis. Patient was made aware that she is on multiple bronchodilators , she is on antibiotics, and she was also on steroids. I discussed and reviewed the CT of the chest with the patient and her son, showing nonspecific inflammatory changes consistent with pneumonitis, nodular infiltrates were noted bilaterally. And small bilateral nodules were also noted. [place] to be more inflammatory in nature. I even discussed with the patient that on Saturday, Dr. henderson will be taking over the service, and he may consider bronchoscopy on this patient if she does not improve much in the next couple of days. Apparently late in the afternoon, patient's clinical status deteriorated, the rapid response team was called to see the patient, and I was notified about the patient's having severe respiratory distress, recommended placing the patient on BiPAP, however ABG reflected significant worsening with PCO2 up in the 120 range, and pH was 7.1. Patient was intubated by [employer], placed on mechanical ventilation, and at that point I was notified by the nurse from the intensive care unit about the overall condition of the patient. I came in shortly after to see the patient in the ICU, Examined the Patient, reviewed the repeat ABG, adjusted her ventilator settings, reviewing the chest x-ray, placed the patient on assist control rate of 14, tidal volume of 350, and FiO2 down to 40%. peep of 5. Patient was noted to have some moderate auto peep. Respiratory rate and flow rates were adjusted. peak airway pressure was noted to be elevated, however the plateau pressures were in the range of 23. Patient was kept on mechanical ventilation, I ordered a repeat ABG, and I discussed her condition with the nurses taking care of the patient, recommended fluid boluses for low blood pressure, I also recommended norepinephrine to be titrated to a mean of 65. Vancomycin was added, sputum cultures and blood cultures were ordered. And I went back and discussed her condition with all the family member waiting in the lounge . Updated the family on her condition, and explained to them that she is critically ill, and may have to consider bronchoscopy and lavage if she does not improve much in the next 24 hours. Patient was placed on propofol drip, sedated, kept on bronchodilators and Zosyn As Well As Vancomycin Was Added. Critical Care Time 40 Minutes, Excluding the Time I spent on Procedure/Placement of a Right Brachial Arterial Line.
[2018-04-19 22:17] LABS: ABG PCO2 91 mmHg (35-45); ABG PO2 78 mmHg (83-108)
[2018-04-19 22:18] LABS: ABG Base Excess 13.7 mmol/L; ABG HCO3 43 mmol/L (21-25)
--- NOTE | 2018-04-19 22:23 | P.PN ---
Subjective Progress Note Date: 04/19/18 Principal diagnosis: Acute hypoxemic respiratory failure secondary to acute COPD exacerbation Ms. Rizvi is a a 57-year-old female with history of severe end-stage COPD O2 dependent ( FEV1 is in the range of 26% at best, FEV1/FVC is 41%) came in with a few days' history of increased shortness of breath, cough, cough is productive with whitish phlegm, some wheezing, no chest pain, no fever, no chills, no hemoptysis. Patient normally sees Dr. Henderson for her COPD, and her primary care physician is Dr. Golden. Patient was just discharged about 6 days ago from [facility] when she was admitted initially with a similar episode of COPD exacerbation and tracheobronchitis. Patient had previous screening for alpha-1 antitrypsin deficiency, and she was told it was negative by Dr. Henderson. Chest x-ray in the ER showed no evidence of active disease, there was hyperinflation consistent with COPD. She is being treated for COPD exacerbation currently. On 04/19/2018 - patient has been lying in bed and appears to be in mild respiratory distress. Patient is currently on 5 L of oxygen via nasal cannula saturating barely at 90%. As per the nursing staff report patient has been like this since morning and she has been getting her breathing treatments every 4 hours. She is also on IV Solu-Medrol and antibiotics in the form of Zosyn. Review of systems Constitutional : Fatigue, tiredness Cardiovascular: No chest pain or palpitations GI: No abdominal pain nausea vomiting or diarrhea : No dysuria or hematuria- Objective - Vital Signs Vital signs: Vital Signs Temp 97.2 F L 04/19/18 15:10 Pulse 121 H 04/19/18 16:24 Resp 20 04/19/18 16:24 BP 163/97 04/19/18 15:10 Pulse Ox 89 L 04/19/18 15:31 Intake & Output 04/18/18 04/19/18 04/19/18 18:59 06:59 18:59 Intake Total 400 650 Balance 400 650 Intake: Intake, IV Titration 400 650 Amount Piperacillin-Tazobactam 3 50 .375 gm In Dextrose/Water 1 50ml.bag @ 12.5 mls/hr IVPB Q8HR [facility] Rx#: [id number] Sodium Chloride 0.9% 1, 400 600 000 ml @ 50 mls/hr IV . Q20H [facility] Rx#:[id number] Other: Voiding Method Toilet Toilet Toilet # Voids 1 1 2 - Exam Physical Exam: Revealed a 57-year-old female in mild respiratory distress. Head: Atraumatic, normocephalic. HEENT:Neck is supple.No neck masses. No thyromegaly. No JVD. PERRLA, EOMI, no icterus. Moist mucous membranes. Chest: Extremely diminished breath sound bilaterally, some wheezing on forced expiratory maneuver was noted. No chest wall tenderness. Cardiac Exam: Normal S1 and S2, no S3 gallop, no murmur. Abdomen: Soft, nontender, no megaly, no rebound, no guarding, normal bowel sounds. Extremities: No clubbing, no edema, no cyanosis Neurological Exam: [No focal neurologic deficit. Psychiatric: Normal mood affect and mental status examination. Lymphatics: No lymphadenopathy was appreciated. Musculoskeletal: Normal range of motion, no deformities noted. - Labs CBC & Chem 7: 04/19/18 20:27 04/19/18 20:27 Labs: Abnormal Lab Results - Last 24 Hours (Table) 04/18/18 04/18/18 04/18/18 Range/Units 11:11 17:20 19:58 WBC (3.8-10.6) k/uL Neutrophils # (1.3-7.7) k/uL Lymphocytes # (1.0-4.8) k/uL Sodium (137-145) mmol/L Potassium (3.5-5.1) mmol/L Chloride (98-107) mmol/L Carbon Dioxide (22-30) mmol/L Creatinine (0.52-1.04) mg/dL Glucose (74-99) mg/dL POC Glucose (mg/dL) 144 H 155 H (75-99) mg/dL AST (14-36) U/L ALT (9-52) U/L Alkaline Phosphatase (38-126) U/L Total Protein (6.3-8.2) g/dL Albumin (3.5-5.0) g/dL Procalcitonin 0.43 H (0.02-0.09) ng/mL 04/18/18 04/19/18 04/19/18 Range/Units 20:13 06:40 06:40 WBC 27.3 H* (3.8-10.6) k/uL Neutrophils # 26.1 H (1.3-7.7) k/uL Lymphocytes # 0.3 L (1.0-4.8) k/uL Sodium 128 L 127 L (137-145) mmol/L Potassium 5.3 H 5.3 H (3.5-5.1) mmol/L Chloride 80 L* 81 L (98-107) mmol/L Carbon Dioxide 44 H* 40 H* (22-30) mmol/L Creatinine 0.40 L 0.40 L (0.52-1.04) mg/dL Glucose 174 H 133 H (74-99) mg/dL POC Glucose (mg/dL) (75-99) mg/dL AST 37 H (14-36) U/L ALT 74 H (9-52) U/L Alkaline Phosphatase 135 H (38-126) U/L Total Protein 5.6 L (6.3-8.2) g/dL Albumin 3.3 L (3.5-5.0) g/dL Procalcitonin (0.02-0.09) ng/mL 04/19/18 04/19/18 Range/Units 06:40 11:38 WBC (3.8-10.6) k/uL Neutrophils # (1.3-7.7) k/uL Lymphocytes # (1.0-4.8) k/uL Sodium (137-145) mmol/L Potassium (3.5-5.1) mmol/L Chloride (98-107) mmol/L Carbon Dioxide (22-30) mmol/L Creatinine (0.52-1.04) mg/dL Glucose (74-99) mg/dL POC Glucose (mg/dL) 180 H 148 H (75-99) mg/dL AST (14-36) U/L ALT (9-52) U/L Alkaline Phosphatase (38-126) U/L Total Protein (6.3-8.2) g/dL Albumin (3.5-5.0) g/dL Procalcitonin (0.02-0.09) ng/mL Microbiology - Last 24 Hours (Table) 04/17/18 09:00 Blood Culture - Preliminary Blood No Growth after 48 hours 04/17/18 16:00 Urine Culture - Final Urine,Voided 04/17/18 16:07 Blood Culture - Preliminary Blood No Growth after 24 hours 04/17/18 16:15 Blood Culture - Preliminary Blood No Growth after 24 hours Assessment and Plan Assessment: ASSESSMENT Acute hypoxic/hypercapnic respiratory failure Acute COPD exacerbation Hyponatremia Metabolic alkalosis History of pneumothorax and wedge resection in the past History of bilateral mastectomy with breast reconstructive surgery Nicotine dependence Moderate protein calorie malnutrition PLAN:Patient will be continued on IV Solu-Medrol, breathing treatments and antibiotic in the form of Zosyn. Patient is resumed on her home medications. Patient is not showing significant improvement in her breathing status. Patient 's sister and her son at the bedside. I had a lengthy discussion about her severe COPD and poor prognosis. Patient wants to have intubation in case her breathing gets worse. Patient is a full code. But overall prognosis is very poor due to her severe COPD.
[2018-04-20] MEDS: NOREPINEPHRIN 4 MG-0.9% NS PMX 4 MG/250 ML ML IV SCH ×3 (00:04→11:49)
[2018-04-20] MEDS: CHLORHEXIDINE GLUCONATE 15 ML CUP MUCOUS MEM SCH ×3 (00:13→20:11)
[2018-04-20] MEDS: methylPREDNISolone SOD SUCCI 125 MG/2 ML VIAL IV SCH ×4 (00:15→18:45)
[2018-04-20 00:23] LABS: Glucose,Whole Blood 121 mg/dL (75-99)
[2018-04-20] MEDS: INSULIN ASPART 100 UNIT/ML 1 ML 10 ML VIAL SQ SCH ×5 (00:23→23:55)
[2018-04-20] MEDS: SODIUM CHLORIDE 0.9% 1,000 ML IV SCH ×2 (01:16→16:05)
[2018-04-20] MEDS: PROPOFOL 1,000 MG in EMPTY BAG 1 BAG IV SCH ×4 (01:20→21:16)
[2018-04-20 05:20] LABS: HCT 37.8 % (34.0-46.0); HGB 11.6 gm/dL (11.4-16.0); Hypochromasia Moderate; MCH 29.1 pg (25.0-35.0); MCHC 30.7 g/dL (31.0-37.0); MCV 94.8 fL (80.0-100.0); Mean Platelet Volume 6.9; Platelet Count 319 k/uL (150-450); RBC 3.99 m/uL (3.80-5.40); RDW 12.8 % (11.5-15.5)
[2018-04-20 05:28] LABS: Blood Urea Nitrogen 15 mg/dL (7-17); Chloride 88 mmol/L (98-107); Glucose 138 mg/dL (74-99); Magnesium 1.7 mg/dL (1.6-2.3); Phosphorus 2.2 mg/dL (2.5-4.5); Potassium 5.4 mmol/L (3.5-5.1); Sodium 134 mmol/L (137-145)
[2018-04-20 05:29] LABS: WBC 33.5 k/uL (3.8-10.6)
[2018-04-20 05:35] LABS: Anion Gap 5 mmol/L
[2018-04-20 05:41] LABS: Carbon Dioxide 41 mmol/L (22-30)
[2018-04-20 05:46] LABS: Band Neutrophils % 10 %; Lymphocytes # (M) 0.67 k/uL (1.0-4.8); Monocytes # (M) 1.68 k/uL (0-1.0); Neutrophils % (M) 84 %; Nucleated Red Blood Cells 0 /100 WBC (0-0); Total Cells Counted 200
[2018-04-20 05:53] LABS: Glucose,Whole Blood 132 mg/dL (75-99)
--- NOTE | 2018-04-20 07:14 | PCN ---
PROCEDURE NOTE OPERATIVE REPORT: Placement of a right brachial arterial line. PREOPERATIVE DIAGNOSES: Acute respiratory failure secondary to chronic obstructive pulmonary disease and post intubation hypotension. POSTOPERATIVE DIAGNOSES: Acute respiratory failure secondary to chronic obstructive pulmonary disease and post intubation hypotension. ANESTHESIA USED: None deployed. PROCEDURE: The patient was placed in the supine position, the right brachial area was prepared in a sterile fashion and drapes were applied. The right brachial artery was palpated, cannulated easily, and a guidewire was placed. A Cook catheter was inserted over the guidewire, and the guidewire was removed. Good blood flow and good waveform were noted, no evidence of any immediate complications. The line was secured using 3.0 silk sutures. MMODL / IJN: [id number] /
--- NOTE | 2018-04-20 07:17 | XR ---
EXAMINATION: XR chest 1V DATE AND TIME: 04/20/2018 6:26 AM ORDERING PROVIDER: Macho Persaud CLINICAL INDICATION: Mech vent TECHNIQUE: Upright portable AP COMPARISON: 04/29/2018 7:12 PM DESCRIPTION: ET tube tip mid trachea, at the level of the inferior margin of the clavicular heads. NG tube present, with NG tube port just cephalad to the expected position of the esophagogastric junc tion, the NG tube may be better placed 5 cm distally so that this port lies within the stomach. Marked emphysematous changes with diffuse hyperinflation is redemonstrated. Radiographically, there i s no new process. There is a subtle reticulonodular pattern apparent, and a recent CT scan documents multifocal pulmonary nodules. There is no pneumothorax. No pleural effusion. Cardiomediastinal silhouette and bones and soft tissues are unremarkable. IMPRESSION: 1. NG TUBE PORT PROJECTS JUST CEPHALAD TO THE EXPECTED POSITION OF THE ESOPHAGOGASTRIC JUNCTION. 2. STABLE FINDINGS; NO NEW PLEURAL OR PULMONARY PROCESS.
[2018-04-20] MEDS: FORMOTEROL FUMARATE 20 MCG/2 ML NEBU INHALATION SCH ×2 (07:42→20:19)
[2018-04-20] MEDS: IPRATROPIUM-ALBUTEROL 3 ML NEB INHALATION SCH ×4 (07:42→20:19)
[2018-04-20] MEDS: BUDESONIDE 1 MG/2 ML NEBU INHALATION SCH ×2 (07:42→20:19)
[2018-04-20 07:51] LABS: ABG Base Excess 18.3 mmol/L; ABG PH 7.31 (7.35-7.45); ABG PO2 79 mmHg (83-108); ABG TCO2 47 mmol/L (19-24)
[2018-04-20 07:53] LABS: ABG HCO3 45 mmol/L (21-25); ABG PCO2 88 mmHg (35-45)
[2018-04-20] MEDS: MAGNESIUM SULFATE-D5W PMX 1 GM in DEXTROSE/WATER 1 100ML.BAG IVPB SCH ×2 (08:16→10:45)
[2018-04-20] MEDS: ENOXAPARIN 40 MG/0.4 ML SYRINGE SQ SCH (08:17)
[2018-04-20] MEDS: PANTOPRAZOLE 40 MG/10 ML VIAL IV SCH (08:17)
[2018-04-20] MEDS: guaiFENesin 600 MG TABLET.ER PO SCH ×2 (08:17→20:11)
[2018-04-20] MEDS: DOXYCYCLINE 100 MG in SODIUM CHLORIDE 0.9% 100 ML IVPB SCH (08:26)
[2018-04-20] MEDS: VANCOMYCIN 1,000 MG in SODIUM CHLORIDE 0.9% 250 ML IVPB SCH ×2 (08:33→20:11)
[2018-04-20] MEDS: PIPERACILLIN-TAZOBACTAM 3.375 GM in DEXTROSE/WATER 1 50ML.BAG IVPB SCH ×2 (09:20→16:08)
[2018-04-20 12:08] LABS: Glucose,Whole Blood 146 mg/dL (75-99)
--- NOTE | 2018-04-20 12:35 | P.PN ---
Subjective Principal diagnosis: This is a 57-year-old female with a past medical history significant for COPD being followed up by nephrology because of hyponatremia and metabolic alkalosis likely from volume depletion from diuretics. She was on IV normal saline at 50 an hour. Yesterday because of persistent metabolic alkalosis as well as hyponatremia and increased IV fluid to 75 mL an hour. Yesterday she went into worsening respiratory failure with pCO2 going up to 120 and required intubation. Chest x-rays consistent with COPD there is no CHF. Currently she is on vent and on proper fall. She is also on normal saline at 75 an hour. This morning the bicarb is down slowly over the last 3 days from 40-41, and the sodium is improved from 1:30 to 134. Workup has shown a low-sodium off 21 a urine osmolality of 557.. Serum cortisol is 7 mcg/dL and TSH is 0.5-8 within normal range. HPI: This is a 57-year-old female with a past medical history significant for COPD. Patient was in recently and placed on Levaquin however she states last night the middle the night her shortness of breath came back and she is unable to get it to resolve. Patient states she's on 2 L oxygen at all times at home. Patient states she felt warm but didn't take her temperature. Patient states she does have a cough but no sputum production. Patient denies any chest pain or palpitations. Patient denies any back pain. Patient denies any headache patient denies numbness weakness. Patient denies any lightheadedness or dizziness. Patient denies any swelling in her legs or calf tenderness. Patient denied abdominal pain patient denies any nausea vomiting diarrhea. Objective - Vital Signs Vital signs: Vital Signs Temp 99.1 F 04/20/18 12:00 Pulse 101 H 04/20/18 12:00 Resp 14 04/20/18 12:00 BP 125/69 04/20/18 02:30 Pulse Ox 95 04/20/18 12:00 Intake & Output 04/19/18 04/20/18 04/20/18 18:59 06:59 18:59 Intake Total 4091.975 1300 Output Total 640 470 Balance 3451.975 830 Weight 53.5 kg Intake: IV 3600 500 Piperacillin-Tazobactam 3 50 .375 gm In Dextrose/Water 1 50ml.bag @ 12.5 mls/hr IVPB Q8HR [facility] Rx#: [id number] Sodium Chloride 0.9% 1, 600 450 000 ml @ 75 mls/hr IV . [id number] [facility] Rx#:[id number] Sodium Chloride 0.9% 1, 3000 000 ml @ 999 mls/hr IV . Q1H1M [facility] Rx#:[id number] Intake, IV Titration 491.975 800 Amount Magnesium Sulfate-D5w Pmx 200 1 gm In Dextrose/Water 1 100ml.bag @ 100 mls/hr IVPB Q1H [facility] Rx#: [id number] Norepinephrin 4 mg-0.9% 410.375 250 Ns Pmx 4 mg In 250 ml @ Titrate IV .Q0M [facility] Rx#: [id number] Propofol 1,000 mg In 81.6 100 Empty Bag 1 bag @ Titrate IV .Q0M [facility] Rx#: [id number] Vancomycin 1,000 mg In 250 Sodium Chloride 0.9% 250 ml @ 125 mls/hr IVPB Q12H [facility] Rx#:[id number] Output: Urine 640 270 Emesis 200 Other: Voiding Method Toilet Indwelling Catheter Indwelling Catheter # Voids 2 50 ABP, PAP, CO, CI - Last Documented Arterial Blood Pressure 96/52 On examination she is sedated on the vent. On 35% FiO2 HEENT exam no JVP neck is supple no facial asymmetry Lungs are significant for fair air entry with no current wheezing. Heart sounds are unremarkable no murmur rub gallop on the monitor Abdomen soft nondistended Extremity exam was no edema Neurologically obtunded sedated. - Labs CBC & Chem 7: 04/20/18 05:00 04/20/18 05:00 Labs: Abnormal Lab Results - Last 24 Hours (Table) 04/19/18 04/19/18 04/19/18 Range/Units 17:17 18:31 18:45 WBC (3.8-10.6) k/uL MCHC (31.0-37.0) g/dL Neutrophils # (1.3-7.7) k/uL Neutrophils # (Manual) (1.3-7.7) k/uL Lymphocytes # (1.0-4.8) k/uL Lymphocytes # (Manual) (1.0-4.8) k/uL Monocytes # (Manual) (0-1.0) k/uL ABG pH 7.12 L* (7.35-7.45) ABG pCO2 >120 H* (35-45) mmHg ABG pO2 53 L (83-108) mmHg ABG HCO3 (21-25) mmol/L ABG Total CO2 (19-24) mmol/L ABG O2 Saturation 81.3 L (94-97) % Sodium (137-145) mmol/L Potassium (3.5-5.1) mmol/L Chloride (98-107) mmol/L Carbon Dioxide (22-30) mmol/L BUN (7-17) mg/dL Creatinine (0.52-1.04) mg/dL Glucose (74-99) mg/dL POC Glucose (mg/dL) 179 H 234 H (75-99) mg/dL Phosphorus (2.5-4.5) mg/dL AST (14-36) U/L ALT (9-52) U/L Total Protein (6.3-8.2) g/dL Albumin (3.5-5.0) g/dL Ur Specific [place] (1.001-1.035) Urine Protein (Negative) Urine Glucose (UA) (Negative) Urine Blood (Negative) Urine RBC (0-5) /hpf 04/19/18 04/19/18 04/19/18 Range/Units 19:40 20:14 20:27 WBC 35.7 H* (3.8-10.6) k/uL MCHC 30.8 L (31.0-37.0) g/dL Neutrophils # 34.3 H (1.3-7.7) k/uL Neutrophils # (Manual) (1.3-7.7) k/uL Lymphocytes # 0.1 L (1.0-4.8) k/uL Lymphocytes # (Manual) (1.0-4.8) k/uL Monocytes # (Manual) (0-1.0) k/uL ABG pH 7.31 L (7.35-7.45) ABG pCO2 91 H* (35-45) mmHg ABG pO2 396 H (83-108) mmHg ABG HCO3 44 H* (21-25) mmol/L ABG Total CO2 (19-24) mmol/L ABG O2 Saturation 99.5 H (94-97) % Sodium (137-145) mmol/L Potassium (3.5-5.1) mmol/L Chloride (98-107) mmol/L Carbon Dioxide (22-30) mmol/L BUN (7-17) mg/dL Creatinine (0.52-1.04) mg/dL Glucose (74-99) mg/dL POC Glucose (mg/dL) (75-99) mg/dL Phosphorus (2.5-4.5) mg/dL AST (14-36) U/L ALT (9-52) U/L Total Protein (6.3-8.2) g/dL Albumin (3.5-5.0) g/dL Ur Specific [place] 1.038 H (1.001-1.035) Urine Protein 1+ H (Negative) Urine Glucose (UA) 2+ H (Negative) Urine Blood Small H (Negative) Urine RBC 33 H (0-5) /hpf 04/19/18 04/19/18 04/19/18 Range/Units 20:27 21:48 21:55 WBC (3.8-10.6) k/uL MCHC (31.0-37.0) g/dL Neutrophils # (1.3-7.7) k/uL Neutrophils # (Manual) (1.3-7.7) k/uL Lymphocytes # (1.0-4.8) k/uL Lymphocytes # (Manual) (1.0-4.8) k/uL Monocytes # (Manual) (0-1.0) k/uL ABG pH 7.30 L (7.35-7.45) ABG pCO2 91 H* (35-45) mmHg ABG pO2 78 L (83-108) mmHg ABG HCO3 43 H* (21-25) mmol/L ABG Total CO2 (19-24) mmol/L ABG O2 Saturation (94-97) % Sodium 130 L (137-145) mmol/L Potassium 5.5 H (3.5-5.1) mmol/L Chloride 83 L (98-107) mmol/L Carbon Dioxide 42 H* (22-30) mmol/L BUN 19 H (7-17) mg/dL Creatinine 0.50 L (0.52-1.04) mg/dL Glucose 190 H (74-99) mg/dL POC Glucose (mg/dL) 151 H (75-99) mg/dL Phosphorus (2.5-4.5) mg/dL AST 42 H (14-36) U/L ALT 69 H (9-52) U/L Total Protein 4.9 L (6.3-8.2) g/dL Albumin 2.8 L (3.5-5.0) g/dL Ur Specific [place] (1.001-1.035) Urine Protein (Negative) Urine Glucose (UA) (Negative) Urine Blood (Negative) Urine RBC (0-5) /hpf 04/20/18 04/20/18 04/20/18 Range/Units 00:22 05:00 05:00 WBC 33.5 H* (3.8-10.6) k/uL MCHC 30.7 L (31.0-37.0) g/dL Neutrophils # (1.3-7.7) k/uL Neutrophils # (Manual) 31.40 H (1.3-7.7) k/uL Lymphocytes # (1.0-4.8) k/uL Lymphocytes # (Manual) 0.67 L (1.0-4.8) k/uL Monocytes # (Manual) 1.68 H (0-1.0) k/uL ABG pH (7.35-7.45) ABG pCO2 (35-45) mmHg ABG pO2 (83-108) mmHg ABG HCO3 (21-25) mmol/L ABG Total CO2 (19-24) mmol/L ABG O2 Saturation (94-97) % Sodium 134 L (137-145) mmol/L Potassium 5.4 H (3.5-5.1) mmol/L Chloride 88 L (98-107) mmol/L Carbon Dioxide 41 H* (22-30) mmol/L BUN (7-17) mg/dL Creatinine 0.40 L (0.52-1.04) mg/dL Glucose 138 H (74-99) mg/dL POC Glucose (mg/dL) 121 H (75-99) mg/dL Phosphorus 2.2 L (2.5-4.5) mg/dL AST (14-36) U/L ALT (9-52) U/L Total Protein (6.3-8.2) g/dL Albumin (3.5-5.0) g/dL Ur Specific [place] (1.001-1.035) Urine Protein (Negative) Urine Glucose (UA) (Negative) Urine Blood (Negative) Urine RBC (0-5) /hpf 04/20/18 04/20/18 04/20/18 Range/Units 05:51 07:49 12:06 WBC (3.8-10.6) k/uL MCHC (31.0-37.0) g/dL Neutrophils # (1.3-7.7) k/uL Neutrophils # (Manual) (1.3-7.7) k/uL Lymphocytes # (1.0-4.8) k/uL Lymphocytes # (Manual) (1.0-4.8) k/uL Monocytes # (Manual) (0-1.0) k/uL ABG pH 7.31 L (7.35-7.45) ABG pCO2 88 H* (35-45) mmHg ABG pO2 79 L (83-108) mmHg ABG HCO3 45 H* (21-25) mmol/L ABG Total CO2 47 H (19-24) mmol/L ABG O2 Saturation (94-97) % Sodium (137-145) mmol/L Potassium (3.5-5.1) mmol/L Chloride (98-107) mmol/L Carbon Dioxide (22-30) mmol/L BUN (7-17) mg/dL Creatinine (0.52-1.04) mg/dL Glucose (74-99) mg/dL POC Glucose (mg/dL) 132 H 146 H (75-99) mg/dL Phosphorus (2.5-4.5) mg/dL AST (14-36) U/L ALT (9-52) U/L Total Protein (6.3-8.2) g/dL Albumin (3.5-5.0) g/dL Ur Specific [place] (1.001-1.035) Urine Protein (Negative) Urine Glucose (UA) (Negative) Urine Blood (Negative) Urine RBC (0-5) /hpf Microbiology - Last 24 Hours (Table) 04/19/18 19:20 Gram Stain - Preliminary Sputum Sputum Culture - Preliminary Roseline albicans 04/17/18 09:00 Blood Culture - Preliminary Blood No Growth after 72 hours 04/19/18 19:50 Urine Culture - Preliminary Urine,Catheterized 04/17/18 16:07 Blood Culture - Preliminary Blood No Growth after 48 hours 04/17/18 16:15 Blood Culture - Preliminary Blood No Growth after 48 hours Assessment and Plan Assessment: Impression 1. Hyponatremia secondary to volume depletion, sodium remains in the 127-128 range in spite of being on 50 mL of normal saline, was changed to normal saline 75 an hour on 04/19/2018, Sodium is improved to 134. 2. Respiratory failure with severe COPD intubated 04/19/2018. 3. Blood gases show a pH of 7.31 and CO2 88 and pO2 is 79. This is indicating severe respiratory acidosis, bicarb is 45, Metabolic alkalosis secondary to compensation for respiratory acidosis from COPD as well as from primary metabolic alkalosis from steroids. This is based on the increase in bicarb for respiratory acidosis being at max should be 41 for the chronic respiratory acidosis but this being acute should be 34 3. Severe COPD. 4. History of bilateral mastectomy with reconstructive surgery. 5. History of pneumothorax and wedge resection. 6. Former smoker. Recommendation 1. Continue IV fluids to 75 an hour as the sodium is not improving. This will help the metabolic alkalosis as well 2. Maintain close watch on labs respiratory status.
--- NOTE | 2018-04-20 12:52 | P.PN ---
Subjective Progress Note Date: 04/20/18 Principal diagnosis: Acute hypoxic and hypercapnic respiratory failure secondary to COPD and bilateral community-acquired pneumonia. This is a 57-year-old female with history of severe end-stage COPD,/emphysema, patient is O2 dependent, prednisone responsive, FEV1 is in the range of 26% at best, FEV1/FVC is 41%, patient has hyperinflation, and a relatively low DLCO consistent with severe emphysema. Patient normally sees Dr. Henderson for her COPD , and her primary care physician is Dr. Golden. Patient was just discharged about 6 days ago from [facility] when she was admitted initially with a similar episode of COPD exacerbation and tracheobronchitis. Has been compliant with her medications, does not smoke, she quit smoking over 10 years ago. Patient had previous screening for alpha-1 antitrypsin deficiency , and she was told it was negative by Dr. Henderson. At any rate patient came in with a few days' history of increased shortness of breath, cough, cough is productive with whitish phlegm, some wheezing, no chest pain, no fever, no chills, no hemoptysis. Denies any headaches, no blurred vision, no dizziness. No nausea no vomiting no abdominal pain, no melena, no hematemesis, no dysuria and no frequency no urgency. Chest x-ray in the ER showed no evidence of active disease, there was hyperinflation consistent with COPD. Patient was admitted, and this consult was initiated. I saw the patient immediately after she arrived to the medical floor. And orders were placed on the chart including bronchodilators, and steroids. On 04/18/2018 patient seen again in follow-up. Not much improved since admission, patient is very dyspneic with conversation, more so with any exertion. Lung sounds are extremely diminished, with faint wheezing in the upper lobes. She has a persistent cough, but it is nonproductive. Her last episode of fever was yesterday at 10:30 in the morning with a picture of 100.3 F. Afebrile today. Blood and urine cultures are pending. Pulse ox on 3 L per nasal cannula is 91%, respirations are shallow. Remains significantly mid in terms of activity tolerance. Patient's serum sodium is improving, currently on IV 0.9 normal saline at a rate of 50 ML per hour, and today's serum sodium is 129 up from 126 from admission. Continue 1500 fluid restriction. The patient is seen again today 04/29/2018 in follow-up on the regular medical floor. She is currently sitting up in a chair at the bedside. She is awake and alert in no acute distress. Maintaining O2 saturations in the 90s on 3 L/m per nasal cannula. She states she is not breathing much better today as compared to yesterday. She's been quite slow to progress. Computed tomography scan of the chest is pending. Blood cultures reveal no growth. White count 27.3. Hemoglobin 12.0. Sodium 127. Potassium 5.3. Creatinine 0.40. Patient was seen earlier around 2 PM, and she was doing relatively well, intermittent episodes of shortness of breath were reported, but overall the patient was sitting in bed, and we had a fairly long conversation about her overall severe COPD, and I discussed with her son and with the patient her last PFTs from the office showing severe emphysema, FEV1 is in the range of 26%, gold stage IV COPD. We Even Discussed the Issue of Lung Transplantation Which Was Apparently Discussed in the past by Dr. Henderson with the Patient On Outpatient Basis. Patient was made aware that she is on multiple bronchodilators , she is on antibiotics, and she was also on steroids. I discussed and reviewed the CT of the chest with the patient and her son, showing nonspecific inflammatory changes consistent with pneumonitis, nodular infiltrates were noted bilaterally. And small bilateral nodules were also noted. [place] to be more inflammatory in nature. I even discussed with the patient that on Saturday, Dr. henderson will be taking over the service, and he may consider bronchoscopy on this patient if she does not improve much in the next couple of days. Apparently late in the afternoon, patient's clinical status deteriorated, the rapid response team was called to see the patient, and I was notified about the patient's having severe respiratory distress, recommended placing the patient on BiPAP, however ABG reflected significant worsening with PCO2 up in the 120 range, and pH was 7.1. Patient was intubated by [employer], placed on mechanical ventilation, and at that point I was notified by the nurse from the intensive care unit about the overall condition of the patient. I came in shortly after to see the patient in the ICU, Examined the Patient, reviewed the repeat ABG, adjusted her ventilator settings, reviewing the chest x-ray, placed the patient on assist control rate of 14, tidal volume of 350, and FiO2 down to 40%. peep of 5. Patient was noted to have some moderate auto peep. Respiratory rate and flow rates were adjusted. peak airway pressure was noted to be elevated, however the plateau pressures were in the range of 23. Patient was kept on mechanical ventilation, I ordered a repeat ABG, and I discussed her condition with the nurses taking care of the patient, recommended fluid boluses for low blood pressure, I also recommended norepinephrine to be titrated to a mean of 65. Vancomycin was added, sputum cultures and blood cultures were ordered. And I went back and discussed her condition with all the family member waiting in the lounge . Updated the family on her condition, and explained to them that she is critically ill, and may have to consider bronchoscopy and lavage if she does not improve much in the next 24 hours. Patient was placed on propofol drip, sedated, kept on bronchodilators and Zosyn As Well As Vancomycin Was Added. Critical Care Time 40 Minutes, Excluding the Time I spent on Procedure/Placement of a Right Brachial Arterial Line. Reevaluated today on 04/20/2018, patient remains on mechanical ventilation, sedated, on propofol, still requiring norepinephrine at 13 mcg/m, she is also on propofol. Ventilator settings are tidal volume of 350 assist-control rate of 14 FiO2 of 40%, and PEEP of 6. Chest x-ray was reviewed, seems to be relatively unremarkable, however the nodular infiltrates noted on the CT of the chest could not be seen on the chest x-ray done on admission. Endotracheal tube and nasogastric tube were noted to be in proper position. Labs were reviewed, ABG showed a pO2 of 79 pCO2 of 88 pH of 7.31, hence I kept the patient on the same vent settings, apparently the patient has chronic CO2 retention, and probably her baseline pCO2 is in the 70s. WBC count is noted elevated at 33.5, hemoglobin is 11.6. Sodium is back to normal, bicarb is 41 renal profile is normal. Cultures so far are nondiagnostic, she had some Roseline in the sputum, but that is mostly a contamination. Patient remains on antibiotics in the form of vancomycin and Zosyn. Discontinued her doxycycline. Sputum is pending, nutritional support will be initiated today. Patient will be given enteral feeding. Peak airway pressure remains in the high 50s and low 40s. However her plateau pressures are in the low 20s. On physical examination , patient continues to have some evidence of bronchospasm and wheezing. Objective - Vital Signs Vital signs: Vital Signs Temp 99.1 F 04/20/18 12:00 Pulse 101 H 04/20/18 12:00 Resp 14 04/20/18 12:00 BP 125/69 04/20/18 02:30 Pulse Ox 95 04/20/18 12:00 Intake & Output 04/19/18 04/20/18 04/20/18 18:59 06:59 18:59 Intake Total 4091.975 1300 Output Total 640 470 Balance 3451.975 830 Weight 53.5 kg Intake: IV 3600 500 Piperacillin-Tazobactam 3 50 .375 gm In Dextrose/Water 1 50ml.bag @ 12.5 mls/hr IVPB Q8HR [facility] Rx#: [id number] Sodium Chloride 0.9% 1, 600 450 000 ml @ 75 mls/hr IV . [id number] [facility] Rx#:[id number] Sodium Chloride 0.9% 1, 3000 000 ml @ 999 mls/hr IV . Q1H1M [facility] Rx#:[id number] Intake, IV Titration 491.975 800 Amount Magnesium Sulfate-D5w Pmx 200 1 gm In Dextrose/Water 1 100ml.bag @ 100 mls/hr IVPB Q1H [facility] Rx#: [id number] Norepinephrin 4 mg-0.9% 410.375 250 Ns Pmx 4 mg In 250 ml @ Titrate IV .Q0M [facility] Rx#: [id number] Propofol 1,000 mg In 81.6 100 Empty Bag 1 bag @ Titrate IV .Q0M [facility] Rx#: [id number] Vancomycin 1,000 mg In 250 Sodium Chloride 0.9% 250 ml @ 125 mls/hr IVPB Q12H [facility] Rx#:[id number] Output: Urine 640 270 Emesis 200 Other: Voiding Method Toilet Indwelling Catheter Indwelling Catheter # Voids 2 50 ABP, PAP, CO, CI - Last Documented Arterial Blood Pressure 96/52 - Exam Physical Exam: Revealed a 57-year-old female sedated, on mechanical ventilation , on propofol, in no distress. Head: Atraumatic, normocephalic, endotracheal tube and orogastric tube are intact. HEENT:[Neck is supple.] [No neck masses.] [No thyromegaly.] [No JVD.] PERRLA, EOMI, no icterus, moist mucous membranes noted. Chest: [Diminished breath sounds at the bases, expiratory wheezing noted bilaterally. Symmetrical chest expansion noted. Bilateral breast reconstruction noted. Cardiac Exam: [Normal S1 and S2, no S3 gallop, no murmur.] Abdomen: [Soft, nontender, no megaly, no rebound, no guarding, normal bowel sounds.] Extremities: [No clubbing, no edema, no cyanosis.] Neurological Exam: [Cannot be assessed, patient is fully sedated. Psychiatric: Cannot be assessed. - Labs CBC & Chem 7: 04/20/18 05:00 04/20/18 05:00 Labs: Abnormal Lab Results - Last 24 Hours (Table) 04/19/18 04/19/18 04/19/18 Range/Units 17:17 18:31 18:45 WBC (3.8-10.6) k/uL MCHC (31.0-37.0) g/dL Neutrophils # (1.3-7.7) k/uL Neutrophils # (Manual) (1.3-7.7) k/uL Lymphocytes # (1.0-4.8) k/uL Lymphocytes # (Manual) (1.0-4.8) k/uL Monocytes # (Manual) (0-1.0) k/uL ABG pH 7.12 L* (7.35-7.45) ABG pCO2 >120 H* (35-45) mmHg ABG pO2 53 L (83-108) mmHg ABG HCO3 (21-25) mmol/L ABG Total CO2 (19-24) mmol/L ABG O2 Saturation 81.3 L (94-97) % Sodium (137-145) mmol/L Potassium (3.5-5.1) mmol/L Chloride (98-107) mmol/L Carbon Dioxide (22-30) mmol/L BUN (7-17) mg/dL Creatinine (0.52-1.04) mg/dL Glucose (74-99) mg/dL POC Glucose (mg/dL) 179 H 234 H (75-99) mg/dL Phosphorus (2.5-4.5) mg/dL AST (14-36) U/L ALT (9-52) U/L Total Protein (6.3-8.2) g/dL Albumin (3.5-5.0) g/dL Ur Specific [place] (1.001-1.035) Urine Protein (Negative) Urine Glucose (UA) (Negative) Urine Blood (Negative) Urine RBC (0-5) /hpf 04/19/18 04/19/18 04/19/18 Range/Units 19:40 20:14 20:27 WBC 35.7 H* (3.8-10.6) k/uL MCHC 30.8 L (31.0-37.0) g/dL Neutrophils # 34.3 H (1.3-7.7) k/uL Neutrophils # (Manual) (1.3-7.7) k/uL Lymphocytes # 0.1 L (1.0-4.8) k/uL Lymphocytes # (Manual) (1.0-4.8) k/uL Monocytes # (Manual) (0-1.0) k/uL ABG pH 7.31 L (7.35-7.45) ABG pCO2 91 H* (35-45) mmHg ABG pO2 396 H (83-108) mmHg ABG HCO3 44 H* (21-25) mmol/L ABG Total CO2 (19-24) mmol/L ABG O2 Saturation 99.5 H (94-97) % Sodium (137-145) mmol/L Potassium (3.5-5.1) mmol/L Chloride (98-107) mmol/L Carbon Dioxide (22-30) mmol/L BUN (7-17) mg/dL Creatinine (0.52-1.04) mg/dL Glucose (74-99) mg/dL POC Glucose (mg/dL) (75-99) mg/dL Phosphorus (2.5-4.5) mg/dL AST (14-36) U/L ALT (9-52) U/L Total Protein (6.3-8.2) g/dL Albumin (3.5-5.0) g/dL Ur Specific [place] 1.038 H (1.001-1.035) Urine Protein 1+ H (Negative) Urine Glucose (UA) 2+ H (Negative) Urine Blood Small H (Negative) Urine RBC 33 H (0-5) /hpf 04/19/18 04/19/18 04/19/18 Range/Units 20:27 21:48 21:55 WBC (3.8-10.6) k/uL MCHC (31.0-37.0) g/dL Neutrophils # (1.3-7.7) k/uL Neutrophils # (Manual) (1.3-7.7) k/uL Lymphocytes # (1.0-4.8) k/uL Lymphocytes # (Manual) (1.0-4.8) k/uL Monocytes # (Manual) (0-1.0) k/uL ABG pH 7.30 L (7.35-7.45) ABG pCO2 91 H* (35-45) mmHg ABG pO2 78 L (83-108) mmHg ABG HCO3 43 H* (21-25) mmol/L ABG Total CO2 (19-24) mmol/L ABG O2 Saturation (94-97) % Sodium 130 L (137-145) mmol/L Potassium 5.5 H (3.5-5.1) mmol/L Chloride 83 L (98-107) mmol/L Carbon Dioxide 42 H* (22-30) mmol/L BUN 19 H (7-17) mg/dL Creatinine 0.50 L (0.52-1.04) mg/dL Glucose 190 H (74-99) mg/dL POC Glucose (mg/dL) 151 H (75-99) mg/dL Phosphorus (2.5-4.5) mg/dL AST 42 H (14-36) U/L ALT 69 H (9-52) U/L Total Protein 4.9 L (6.3-8.2) g/dL Albumin 2.8 L (3.5-5.0) g/dL Ur Specific [place] (1.001-1.035) Urine Protein (Negative) Urine Glucose (UA) (Negative) Urine Blood (Negative) Urine RBC (0-5) /hpf 04/20/18 04/20/18 04/20/18 Range/Units 00:22 05:00 05:00 WBC 33.5 H* (3.8-10.6) k/uL MCHC 30.7 L (31.0-37.0) g/dL Neutrophils # (1.3-7.7) k/uL Neutrophils # (Manual) 31.40 H (1.3-7.7) k/uL Lymphocytes # (1.0-4.8) k/uL Lymphocytes # (Manual) 0.67 L (1.0-4.8) k/uL Monocytes # (Manual) 1.68 H (0-1.0) k/uL ABG pH (7.35-7.45) ABG pCO2 (35-45) mmHg ABG pO2 (83-108) mmHg ABG HCO3 (21-25) mmol/L ABG Total CO2 (19-24) mmol/L ABG O2 Saturation (94-97) % Sodium 134 L (137-145) mmol/L Potassium 5.4 H (3.5-5.1) mmol/L Chloride 88 L (98-107) mmol/L Carbon Dioxide 41 H* (22-30) mmol/L BUN (7-17) mg/dL Creatinine 0.40 L (0.52-1.04) mg/dL Glucose 138 H (74-99) mg/dL POC Glucose (mg/dL) 121 H (75-99) mg/dL Phosphorus 2.2 L (2.5-4.5) mg/dL AST (14-36) U/L ALT (9-52) U/L Total Protein (6.3-8.2) g/dL Albumin (3.5-5.0) g/dL Ur Specific [place] (1.001-1.035) Urine Protein (Negative) Urine Glucose (UA) (Negative) Urine Blood (Negative) Urine RBC (0-5) /hpf 04/20/18 04/20/18 04/20/18 Range/Units 05:51 07:49 12:06 WBC (3.8-10.6) k/uL MCHC (31.0-37.0) g/dL Neutrophils # (1.3-7.7) k/uL Neutrophils # (Manual) (1.3-7.7) k/uL Lymphocytes # (1.0-4.8) k/uL Lymphocytes # (Manual) (1.0-4.8) k/uL Monocytes # (Manual) (0-1.0) k/uL ABG pH 7.31 L (7.35-7.45) ABG pCO2 88 H* (35-45) mmHg ABG pO2 79 L (83-108) mmHg ABG HCO3 45 H* (21-25) mmol/L ABG Total CO2 47 H (19-24) mmol/L ABG O2 Saturation (94-97) % Sodium (137-145) mmol/L Potassium (3.5-5.1) mmol/L Chloride (98-107) mmol/L Carbon Dioxide (22-30) mmol/L BUN (7-17) mg/dL Creatinine (0.52-1.04) mg/dL Glucose (74-99) mg/dL POC Glucose (mg/dL) 132 H 146 H (75-99) mg/dL Phosphorus (2.5-4.5) mg/dL AST (14-36) U/L ALT (9-52) U/L Total Protein (6.3-8.2) g/dL Albumin (3.5-5.0) g/dL Ur Specific [place] (1.001-1.035) Urine Protein (Negative) Urine Glucose (UA) (Negative) Urine Blood (Negative) Urine RBC (0-5) /hpf Microbiology - Last 24 Hours (Table) 04/19/18 19:20 Gram Stain - Preliminary Sputum Sputum Culture - Preliminary Roseline albicans 04/17/18 09:00 Blood Culture - Preliminary Blood No Growth after 72 hours 04/19/18 19:50 Urine Culture - Preliminary Urine,Catheterized 04/17/18 16:07 Blood Culture - Preliminary Blood No Growth after 48 hours 04/17/18 16:15 Blood Culture - Preliminary Blood No Growth after 48 hours Assessment and Plan Assessment: Impression: 1: Acute hypoxemic and hypercapnic respiratory failure secondary to acute COPD exacerbation. Requiring intubation and mechanical ventilation. 2 acute exacerbation of severe COPD, mostly consistent with emphysema 3 strongly suspect community-acquired bilateral pneumonia, sepsis, and septic shock. Nodular infiltrates noted on the CT of the chest, not appreciated much on the chest x-ray upon admission. 3 remote history of spontaneous pneumothorax in 2006, previous wedge resection and mechanical pleurodesis for pneumothorax. 4 breast cancer in 2004. And bilateral breast reconstruction. 5 hypotension secondary to sepsis and septic shock, required significant amount of fluid boluses, patient remains on norepinephrine presently at 15 mcg/m. Recommendation: Continue ventilatory support, antibiotics, bronchodilators, steroids, GI and DVT prophylaxis, permissive hypercapnia, not quite ready for any weaning trials at this point. Discussed her condition with family members at bedside, and they are all well aware of her condition. Prognosis is definitely guarded at this point. We'll continue to follow closely in the ICU. Critical care time is 45 minutes Time with Patient: Greater than 30
--- NOTE | 2018-04-20 14:51 | P.PN ---
Subjective Progress Note Date: 04/20/18 Principal diagnosis: Acute hypoxemic respiratory failure secondary to acute COPD exacerbation Ms. Rizvi is a a 57-year-old female with history of severe end-stage COPD O2 dependent ( FEV1 is in the range of 26% at best, FEV1/FVC is 41%) came in with a few days' history of increased shortness of breath, cough, cough is productive with whitish phlegm, some wheezing, no chest pain, no fever, no chills, no hemoptysis. Patient normally sees Dr. Henderson for her COPD, and her primary care physician is Dr. Golden. Patient was just discharged about 6 days ago from [facility] when she was admitted initially with a similar episode of COPD exacerbation and tracheobronchitis. Patient had previous screening for alpha-1 antitrypsin deficiency, and she was told it was negative by Dr. Henderson. Chest x-ray in the ER showed no evidence of active disease, there was hyperinflation consistent with COPD. She is being treated for COPD exacerbation currently. On 04/19/2018 - patient has been lying in bed and appears to be in mild respiratory distress. Patient is currently on 5 L of oxygen via nasal cannula saturating barely at 90%. As per the nursing staff report patient has been like this since morning and she has not been getting her breathing treatments . She is also on IV Solu-Medrol and antibiotics in the form of Zosyn. 04/20/2018- last night patient's respiration became labored so patient was placed on BiPAP for a few minutes but could not tolerate it and her clinical status deteriorated and rapid response team was called. She was then intubated around 6:30 PM last night. She was on Zosyn, vancomycin and doxycycline have been added to her antibiotics. Sputum cultures and blood cultures were also ordered. Patient dropped her blood pressure for which she was started on Levophed. She is currently on a ventilator. Review of systems: Could not be obtained as the patient is intubated Objective - Vital Signs Vital signs: Vital Signs Temp 99.1 F 04/20/18 12:00 Pulse 104 H 04/20/18 13:30 Resp 14 04/20/18 13:30 BP 125/69 04/20/18 02:30 Pulse Ox 91 L 04/20/18 13:30 Intake & Output 04/19/18 04/20/18 04/20/18 18:59 06:59 18:59 Intake Total 4091.975 1444.625 Output Total 640 530 Balance 3451.975 914.625 Weight 53.5 kg Intake: IV 3600 575 Piperacillin-Tazobactam 3 50 .375 gm In Dextrose/Water 1 50ml.bag @ 12.5 mls/hr IVPB Q8HR [facility] Rx#: [id number] Sodium Chloride 0.9% 1, 600 525 000 ml @ 75 mls/hr IV . [id number] [facility] Rx#:[id number] Sodium Chloride 0.9% 1, 3000 000 ml @ 999 mls/hr IV . Q1H1M [facility] Rx#:[id number] Intake, IV Titration 491.975 869.625 Amount Magnesium Sulfate-D5w Pmx 200 1 gm In Dextrose/Water 1 100ml.bag @ 100 mls/hr IVPB Q1H [facility] Rx#: [id number] Norepinephrin 4 mg-0.9% 410.375 319.625 Ns Pmx 4 mg In 250 ml @ Titrate IV .Q0M [facility] Rx#: [id number] Propofol 1,000 mg In 81.6 100 Empty Bag 1 bag @ Titrate IV .Q0M [facility] Rx#: [id number] Vancomycin 1,000 mg In 250 Sodium Chloride 0.9% 250 ml @ 125 mls/hr IVPB Q12H [facility] Rx#:[id number] Output: Urine 640 330 Emesis 200 Other: Voiding Method Toilet Indwelling Catheter Indwelling Catheter # Voids 2 50 ABP, PAP, CO, CI - Last Documented Arterial Blood Pressure 115/64 - Exam Physical Exam: Revealed a 57-year-old female in mild respiratory distress. Head: Atraumatic, normocephalic. ET tube and orogastric tube in place HEENT:Neck is supple.No neck masses. No thyromegaly. No JVD. PERRLA, EOMI, no icterus. Chest: Extremely diminished breath sound bilaterally, some wheezing bilaterally Cardiac Exam: Normal S1 and S2, no S3 gallop, no murmur. Abdomen: Soft, nontender, no megaly, no rebound, no guarding, normal bowel sounds. Extremities: No clubbing, no edema, no cyanosis Neurological Exam: Sedated. - Labs CBC & Chem 7: 04/20/18 05:00 04/20/18 05:00 Labs: Abnormal Lab Results - Last 24 Hours (Table) 04/19/18 04/19/18 04/19/18 Range/Units 17:17 18:31 18:45 WBC (3.8-10.6) k/uL MCHC (31.0-37.0) g/dL Neutrophils # (1.3-7.7) k/uL Neutrophils # (Manual) (1.3-7.7) k/uL Lymphocytes # (1.0-4.8) k/uL Lymphocytes # (Manual) (1.0-4.8) k/uL Monocytes # (Manual) (0-1.0) k/uL ABG pH 7.12 L* (7.35-7.45) ABG pCO2 >120 H* (35-45) mmHg ABG pO2 53 L (83-108) mmHg ABG HCO3 (21-25) mmol/L ABG Total CO2 (19-24) mmol/L ABG O2 Saturation 81.3 L (94-97) % Sodium (137-145) mmol/L Potassium (3.5-5.1) mmol/L Chloride (98-107) mmol/L Carbon Dioxide (22-30) mmol/L BUN (7-17) mg/dL Creatinine (0.52-1.04) mg/dL Glucose (74-99) mg/dL POC Glucose (mg/dL) 179 H 234 H (75-99) mg/dL Phosphorus (2.5-4.5) mg/dL AST (14-36) U/L ALT (9-52) U/L Total Protein (6.3-8.2) g/dL Albumin (3.5-5.0) g/dL Ur Specific [place] (1.001-1.035) Urine Protein (Negative) Urine Glucose (UA) (Negative) Urine Blood (Negative) Urine RBC (0-5) /hpf 04/19/18 04/19/18 04/19/18 Range/Units 19:40 20:14 20:27 WBC 35.7 H* (3.8-10.6) k/uL MCHC 30.8 L (31.0-37.0) g/dL Neutrophils # 34.3 H (1.3-7.7) k/uL Neutrophils # (Manual) (1.3-7.7) k/uL Lymphocytes # 0.1 L (1.0-4.8) k/uL Lymphocytes # (Manual) (1.0-4.8) k/uL Monocytes # (Manual) (0-1.0) k/uL ABG pH 7.31 L (7.35-7.45) ABG pCO2 91 H* (35-45) mmHg ABG pO2 396 H (83-108) mmHg ABG HCO3 44 H* (21-25) mmol/L ABG Total CO2 (19-24) mmol/L ABG O2 Saturation 99.5 H (94-97) % Sodium (137-145) mmol/L Potassium (3.5-5.1) mmol/L Chloride (98-107) mmol/L Carbon Dioxide (22-30) mmol/L BUN (7-17) mg/dL Creatinine (0.52-1.04) mg/dL Glucose (74-99) mg/dL POC Glucose (mg/dL) (75-99) mg/dL Phosphorus (2.5-4.5) mg/dL AST (14-36) U/L ALT (9-52) U/L Total Protein (6.3-8.2) g/dL Albumin (3.5-5.0) g/dL Ur Specific [place] 1.038 H (1.001-1.035) Urine Protein 1+ H (Negative) Urine Glucose (UA) 2+ H (Negative) Urine Blood Small H (Negative) Urine RBC 33 H (0-5) /hpf 04/19/18 04/19/18 04/19/18 Range/Units 20:27 21:48 21:55 WBC (3.8-10.6) k/uL MCHC (31.0-37.0) g/dL Neutrophils # (1.3-7.7) k/uL Neutrophils # (Manual) (1.3-7.7) k/uL Lymphocytes # (1.0-4.8) k/uL Lymphocytes # (Manual) (1.0-4.8) k/uL Monocytes # (Manual) (0-1.0) k/uL ABG pH 7.30 L (7.35-7.45) ABG pCO2 91 H* (35-45) mmHg ABG pO2 78 L (83-108) mmHg ABG HCO3 43 H* (21-25) mmol/L ABG Total CO2 (19-24) mmol/L ABG O2 Saturation (94-97) % Sodium 130 L (137-145) mmol/L Potassium 5.5 H (3.5-5.1) mmol/L Chloride 83 L (98-107) mmol/L Carbon Dioxide 42 H* (22-30) mmol/L BUN 19 H (7-17) mg/dL Creatinine 0.50 L (0.52-1.04) mg/dL Glucose 190 H (74-99) mg/dL POC Glucose (mg/dL) 151 H (75-99) mg/dL Phosphorus (2.5-4.5) mg/dL AST 42 H (14-36) U/L ALT 69 H (9-52) U/L Total Protein 4.9 L (6.3-8.2) g/dL Albumin 2.8 L (3.5-5.0) g/dL Ur Specific [place] (1.001-1.035) Urine Protein (Negative) Urine Glucose (UA) (Negative) Urine Blood (Negative) Urine RBC (0-5) /hpf 04/20/18 04/20/18 04/20/18 Range/Units 00:22 05:00 05:00 WBC 33.5 H* (3.8-10.6) k/uL MCHC 30.7 L (31.0-37.0) g/dL Neutrophils # (1.3-7.7) k/uL Neutrophils # (Manual) 31.40 H (1.3-7.7) k/uL Lymphocytes # (1.0-4.8) k/uL Lymphocytes # (Manual) 0.67 L (1.0-4.8) k/uL Monocytes # (Manual) 1.68 H (0-1.0) k/uL ABG pH (7.35-7.45) ABG pCO2 (35-45) mmHg ABG pO2 (83-108) mmHg ABG HCO3 (21-25) mmol/L ABG Total CO2 (19-24) mmol/L ABG O2 Saturation (94-97) % Sodium 134 L (137-145) mmol/L Potassium 5.4 H (3.5-5.1) mmol/L Chloride 88 L (98-107) mmol/L Carbon Dioxide 41 H* (22-30) mmol/L BUN (7-17) mg/dL Creatinine 0.40 L (0.52-1.04) mg/dL Glucose 138 H (74-99) mg/dL POC Glucose (mg/dL) 121 H (75-99) mg/dL Phosphorus 2.2 L (2.5-4.5) mg/dL AST (14-36) U/L ALT (9-52) U/L Total Protein (6.3-8.2) g/dL Albumin (3.5-5.0) g/dL Ur Specific [place] (1.001-1.035) Urine Protein (Negative) Urine Glucose (UA) (Negative) Urine Blood (Negative) Urine RBC (0-5) /hpf 04/20/18 04/20/18 04/20/18 Range/Units 05:51 07:49 12:06 WBC (3.8-10.6) k/uL MCHC (31.0-37.0) g/dL Neutrophils # (1.3-7.7) k/uL Neutrophils # (Manual) (1.3-7.7) k/uL Lymphocytes # (1.0-4.8) k/uL Lymphocytes # (Manual) (1.0-4.8) k/uL Monocytes # (Manual) (0-1.0) k/uL ABG pH 7.31 L (7.35-7.45) ABG pCO2 88 H* (35-45) mmHg ABG pO2 79 L (83-108) mmHg ABG HCO3 45 H* (21-25) mmol/L ABG Total CO2 47 H (19-24) mmol/L ABG O2 Saturation (94-97) % Sodium (137-145) mmol/L Potassium (3.5-5.1) mmol/L Chloride (98-107) mmol/L Carbon Dioxide (22-30) mmol/L BUN (7-17) mg/dL Creatinine (0.52-1.04) mg/dL Glucose (74-99) mg/dL POC Glucose (mg/dL) 132 H 146 H (75-99) mg/dL Phosphorus (2.5-4.5) mg/dL AST (14-36) U/L ALT (9-52) U/L Total Protein (6.3-8.2) g/dL Albumin (3.5-5.0) g/dL Ur Specific [place] (1.001-1.035) Urine Protein (Negative) Urine Glucose (UA) (Negative) Urine Blood (Negative) Urine RBC (0-5) /hpf Microbiology - Last 24 Hours (Table) 04/19/18 19:20 Gram Stain - Preliminary Sputum Sputum Culture - Preliminary Roseline albicans 04/17/18 09:00 Blood Culture - Preliminary Blood No Growth after 72 hours 04/19/18 19:50 Urine Culture - Preliminary Urine,Catheterized 04/17/18 16:07 Blood Culture - Preliminary Blood No Growth after 48 hours 04/17/18 16:15 Blood Culture - Preliminary Blood No Growth after 48 hours Assessment and Plan Assessment: ASSESSMENT Acute hypoxic/hypercapnic respiratory failure - on mechanical ventilation Acute COPD exacerbation Hyponatremia History of pneumothorax and wedge resection in the past History of bilateral mastectomy with breast reconstructive surgery Nicotine dependence Moderate protein calorie malnutrition PLAN: Continue with mechanical ventilation and IV steroids. Antibiotics in the form of Zosyn, vancomycin and doxycycline. Appreciate pulmonary recommendations. Over all her prognosis is poor.
[2018-04-20 18:32] LABS: Glucose,Whole Blood 139 mg/dL (75-99)
--- NOTE | 2018-04-20 21:43 | PN ---
PROGRESS NOTE DATE OF SERVICE: 04/20/2018. REASON FOR FOLLOWUP: Possible pneumonia. INTERVAL HISTORY: The patient did go into respiratory distress last evening and unresponsiveness. Noted to have significant elevated pCO2 and the patient transferred to the ICU and has been intubated. She did require pressor support. Currently being weaned off. No significant per the RN. The sputum has been collected. Currently afebrile on the vent. EXAMINATION: Blood pressure 90/56 with a pulse of 101, temperature 98.2. She is 92% on 35% FiO2. General description is an elderly female lying in bed in no distress. Respiratory system: Unlabored breathing. Coarse breath sounds bilaterally. Heart S1, S2. Regular rate and rhythm. Abdomen soft, no tenderness. LABS: Hemoglobin 11.6, white count 3.5. BUN 15, creatinine 0.40. Sputum with Roseline. Blood culture has been negative. DIAGNOSTIC IMPRESSION AND PLAN: Patient with acute respiratory failure multifactorial likely component of underlying chronic obstructive pulmonary disease with the patient question of possible tracheobronchitis or pneumonia. Sputum so far with Roseline. She may benefit from a bronch and deep cultures. Currently on Zosyn and . That will continue while watching clinical course as well as cultures closely. Continue supportive care. MMODL / IJN: [id number] /
[2018-04-20 23:42] LABS: Glucose,Whole Blood 140 mg/dL (75-99)
[2018-04-20] MEDS: IPRATROPIUM-ALBUTEROL 3 ML NEB INHALATION PRN (23:42)
[2018-04-21] MEDS: PIPERACILLIN-TAZOBACTAM 3.375 GM in DEXTROSE/WATER 1 50ML.BAG IVPB SCH ×3 (00:01→15:52)
[2018-04-21] MEDS: methylPREDNISolone SOD SUCCI 125 MG/2 ML VIAL IV SCH ×4 (00:02→17:54)
[2018-04-21] MEDS: IPRATROPIUM-ALBUTEROL 3 ML NEB INHALATION PRN (03:17)
[2018-04-21] MEDS: SODIUM CHLORIDE 0.9% 1,000 ML IV SCH ×2 (03:54→17:53)
[2018-04-21] MEDS: PROPOFOL 1,000 MG in EMPTY BAG 1 BAG IV SCH ×3 (04:09→20:00)
[2018-04-21 04:41] LABS: Basophils % (A) 0 %; Eosinophils # (A) 0.1 k/uL (0-0.7); Eosinophils % (A) 1 %; HCT 34.8 % (34.0-46.0); HGB 10.7 gm/dL (11.4-16.0); Hypochromasia Moderate; Lymphocytes # (A) 0.2 k/uL (1.0-4.8); Lymphocytes % (A) 1 %; MCH 29.1 pg (25.0-35.0); MCHC 30.6 g/dL (31.0-37.0); MCV 95.1 fL (80.0-100.0); Mean Platelet Volume 7.4; Monocytes # (A) 0.3 k/uL (0-1.0); Monocytes % (A) 2 %; Neutrophils % (A) 96 %; Platelet Count 234 k/uL (150-450); RBC 3.66 m/uL (3.80-5.40); RDW 13.3 % (11.5-15.5); WBC 15.7 k/uL (3.8-10.6)
[2018-04-21 04:52] LABS: Blood Urea Nitrogen 17 mg/dL (7-17); Calcium 8.5 mg/dL (8.4-10.2); Chloride 91 mmol/L (98-107); Glucose 123 mg/dL (74-99); Magnesium 2.1 mg/dL (1.6-2.3); Phosphorus 2.2 mg/dL (2.5-4.5); Potassium 5.1 mmol/L (3.5-5.1); Sodium 138 mmol/L (137-145)
[2018-04-21 04:58] LABS: Anion Gap 2 mmol/L
[2018-04-21 04:59] LABS: Carbon Dioxide 45 mmol/L (22-30)
[2018-04-21 05:39] LABS: Glucose,Whole Blood 123 mg/dL (75-99)
[2018-04-21] MEDS: INSULIN ASPART 100 UNIT/ML 1 ML 10 ML VIAL SQ SCH ×3 (06:03→17:58)
[2018-04-21] MEDS: IPRATROPIUM-ALBUTEROL 3 ML NEB INHALATION SCH ×5 (07:07→23:44)
[2018-04-21] MEDS: BUDESONIDE 1 MG/2 ML NEBU INHALATION SCH ×2 (07:07→19:46)
[2018-04-21] MEDS: FORMOTEROL FUMARATE 20 MCG/2 ML NEBU INHALATION SCH ×2 (07:07→19:46)
[2018-04-21 07:17] LABS: ABG Base Excess 21.4 mmol/L; ABG Oxygen Saturation 94.9 % (94-97); ABG PH 7.37 (7.35-7.45); ABG PO2 72 mmHg (83-108); ABG TCO2 49 mmol/L (19-24)
[2018-04-21 07:19] LABS: ABG HCO3 47 mmol/L (21-25); ABG PCO2 81 mmHg (35-45)
[2018-04-21] MEDS: CHLORHEXIDINE GLUCONATE 15 ML CUP MUCOUS MEM SCH ×2 (07:48→20:47)
[2018-04-21] MEDS: ENOXAPARIN 40 MG/0.4 ML SYRINGE SQ SCH (07:48)
[2018-04-21] MEDS: PANTOPRAZOLE 40 MG/10 ML VIAL IV SCH (07:48)
[2018-04-21] MEDS: guaiFENesin 600 MG TABLET.ER PO SCH ×2 (07:48→21:09)
[2018-04-21] MEDS: VANCOMYCIN 1,000 MG in SODIUM CHLORIDE 0.9% 250 ML IVPB SCH ×2 (07:50→21:36)
--- NOTE | 2018-04-21 08:23 | XR ---
EXAMINATION TYPE: XR chest 1V DATE OF EXAM: 04/21/2018 COMPARISON: 04/20/2018 INDICATION: Mechanical ventilation difficulty breathing TECHNIQUE: Single frontal view of the chest is obtained. FINDINGS: The heart size is normal. The pulmonary vasculature is normal. Right apical surgery is evident. Endotracheal tube is present with tip above the heraclio. Nasogastric tube transverses the thorax tip in the abdomen. Some hyperinflation is present. Some minimal subsegme ntal atelectasis on the right diaphragm is not excluded. IMPRESSION: 1. Hyperinflation and some slight segmental atelectasis of the right diaphragm. 2. Lines and catheters discussed above.
--- NOTE | 2018-04-21 08:59 | P.PN ---
Subjective Progress Note Date: 04/21/18 Principal diagnosis: Hypoxemic respiratory failure, COPD Progress note dated 04/21/2018 This is a 57-year-old female well-known to me. She was admitted on April 17 intubated on April 19. Currently on the volume assist control mode with a rate of 14 tidal volume 350 FiO2 35% PEEP of 6. Arterial blood gases show a PaO2 of 72 and a PaCO2 of 81 and a pH is 7.36. She is on a saline IV at 75 mL an hour propofol at 50 mics per kilogram per minute and norepinephrine is on hold. No tube feeds have been started as yet. She's had an oral gastric tube in place and an endotracheal tube in place. I've asked the nurses to talk to nutrition about starting tube feeds. In addition to hypoxemic hypercapnic respiratory failure, she has a history of spontaneous pneumothorax in 2006 with previous wedge resection and mechanical pleurodesis breast cancer 2004 with bilateral breast reconstruction and sepsis with septic shock and hypotension. She is also thought to possibly have community-acquired bilateral pneumonia. I have talked to this patient in the past about possible lung transplantation but she wasn't very excited. She was anemic excited to have a evaluation. Microbiology is as far all negative. White count is 15.7 hemoglobin 10.7 hematocrit 34.8 and platelet count 234,000. In addition, sodium 138 potassium 5.1 chloride 91 CO2 45 anion gap to be running creatinine 17 and 0.43. Chest x- rays mostly consistent with hyperinflation. Computed tomography scan of the chest shows diffuse peribronchial cuffing with tree-in-bud opacities as well as diffuse nodular opacities. Objective - Vital Signs Vital signs: Vital Signs Temp 99.0 F 04/21/18 08:00 Pulse 86 04/21/18 08:00 Resp 13 04/21/18 08:00 BP 125/69 04/20/18 02:30 Pulse Ox 96 04/21/18 08:00 Intake & Output 04/20/18 04/21/18 04/21/18 18:59 06:59 18:59 Intake Total 2028.375 1632.164 438.395 Output Total 695 530 235 Balance 8162.668 7004.164 203.395 Weight 61 kg Intake: IV 1000 1325 375 Piperacillin-Tazobactam 3 100 100 50 .375 gm In Dextrose/Water 1 50ml.bag @ 12.5 mls/hr IVPB Q8HR [facility] Rx#: [id number] Sodium Chloride 0.9% 1, 900 975 75 000 ml @ 75 mls/hr IV . [id number] [facility] Rx#:[id number] Vancomycin 1,000 mg In 250 250 Sodium Chloride 0.9% 250 ml @ 125 mls/hr IVPB Q12H [facility] Rx#:[id number] Intake, IV Titration 1028.375 277.164 63.395 Amount Magnesium Sulfate-D5w Pmx 200 1 gm In Dextrose/Water 1 100ml.bag @ 100 mls/hr IVPB Q1H [facility] Rx#: [id number] Norepinephrin 4 mg-0.9% 378.375 103.094 Ns Pmx 4 mg In 250 ml @ Titrate IV .Q0M [facility] Rx#: [id number] Propofol 1,000 mg In 200 174.07 63.395 Empty Bag 1 bag @ Titrate IV .Q0M [facility] Rx#: [id number] Vancomycin 1,000 mg In 250 Sodium Chloride 0.9% 250 ml @ 125 mls/hr IVPB Q12H [facility] Rx#:[id number] Other 30 Output: Urine 495 530 35 Emesis 200 200 Other: Voiding Method Indwelling Catheter Indwelling Catheter ABP, PAP, CO, CI - Last Documented Arterial Blood Pressure 117/61 - Exam No acute distress, the patient is heavily sedated. HEENT examination is grossly unremarkable. Mucous membranes are moist. No oral lesions. Endotracheal tube and orogastric tube is noted. Neck supple. Full range of motion. No adenopathy thyromegaly or neck vein distention. Cardiovascular examination reveals regular rhythm rate. S1-S2 normal. No S3 or S4. No discernible murmur noted. Lungs reveal clear breath sounds. Her sounds are equal bilaterally. A few scattered rhonchi noted bilaterally. Abdomen soft bowel sounds are heard. No masses or tenderness. Extremities are intact. No cyanosis clubbing or edema. Skin is without rash or lesion. Neurologic examination could not be adequately assessed. - Labs CBC & Chem 7: 04/21/18 04:31 04/21/18 04:31 Labs: Abnormal Lab Results - Last 24 Hours (Table) 04/20/18 04/20/18 04/20/18 Range/Units 12:06 18:29 23:41 WBC (3.8-10.6) k/uL RBC (3.80-5.40) m/uL Hgb (11.4-16.0) gm/dL MCHC (31.0-37.0) g/dL Neutrophils # (1.3-7.7) k/uL Lymphocytes # (1.0-4.8) k/uL ABG pCO2 (35-45) mmHg ABG pO2 (83-108) mmHg ABG HCO3 (21-25) mmol/L ABG Total CO2 (19-24) mmol/L Chloride (98-107) mmol/L Carbon Dioxide (22-30) mmol/L Creatinine (0.52-1.04) mg/dL Glucose (74-99) mg/dL POC Glucose (mg/dL) 146 H 139 H 140 H (75-99) mg/dL Phosphorus (2.5-4.5) mg/dL 04/21/18 04/21/18 04/21/18 Range/Units 04:31 04:31 05:37 WBC 15.7 H (3.8-10.6) k/uL RBC 3.66 L (3.80-5.40) m/uL Hgb 10.7 L (11.4-16.0) gm/dL MCHC 30.6 L (31.0-37.0) g/dL Neutrophils # 15.0 H (1.3-7.7) k/uL Lymphocytes # 0.2 L (1.0-4.8) k/uL ABG pCO2 (35-45) mmHg ABG pO2 (83-108) mmHg ABG HCO3 (21-25) mmol/L ABG Total CO2 (19-24) mmol/L Chloride 91 L (98-107) mmol/L Carbon Dioxide 45 H* (22-30) mmol/L Creatinine 0.43 L (0.52-1.04) mg/dL Glucose 123 H (74-99) mg/dL POC Glucose (mg/dL) 123 H (75-99) mg/dL Phosphorus 2.2 L (2.5-4.5) mg/dL 04/21/18 Range/Units 07:09 WBC (3.8-10.6) k/uL RBC (3.80-5.40) m/uL Hgb (11.4-16.0) gm/dL MCHC (31.0-37.0) g/dL Neutrophils # (1.3-7.7) k/uL Lymphocytes # (1.0-4.8) k/uL ABG pCO2 81 H* (35-45) mmHg ABG pO2 72 L (83-108) mmHg ABG HCO3 47 H* (21-25) mmol/L ABG Total CO2 49 H (19-24) mmol/L Chloride (98-107) mmol/L Carbon Dioxide (22-30) mmol/L Creatinine (0.52-1.04) mg/dL Glucose (74-99) mg/dL POC Glucose (mg/dL) (75-99) mg/dL Phosphorus (2.5-4.5) mg/dL Microbiology - Last 24 Hours (Table) 04/19/18 19:50 Urine Culture - Final Urine,Catheterized 04/17/18 16:07 Blood Culture - Preliminary Blood No Growth after 72 hours 04/17/18 16:15 Blood Culture - Preliminary Blood No Growth after 72 hours 04/19/18 19:20 Gram Stain - Preliminary Sputum Sputum Culture - Preliminary Roseline albicans 04/17/18 09:00 Blood Culture - Preliminary Blood No Growth after 72 hours Assessment and Plan Assessment: Assessment Hypoxemic and Hypercapnic Respiratory Failure Secondary to His Very Severe COPD , Status Post Intubation and Mechanical Ventilation. History of Severe Emphysema Possible Community-Acquired Pneumonia History of Spontaneous Pneumothorax in 2006 with Apical Bleb Resection and Mechanical Pleurodesis Breast Cancer, 2004, Status Post Bilateral Breast Reconstruction Hypotension, Resolved, Secondary to Sepsis Plan: Plan dated 04/21/2018 The patient is currently on the ventilator. She is currently being sedated sedated with propofol. The norepinephrine has been turned off. We will start feedings today. Gases are reasonable. Prognosis is poor. The poor lady may end up with a tracheostomy and PEG tube. I will deftly have discussions with the family. I did offer patient the previous evaluation for lung transplantation and every 4 but the patient refuses. This is her first episode of acute and severe respiratory failure. Time with Patient: Greater than 30
--- NOTE | 2018-04-21 11:48 | PN ---
PROGRESS NOTE Patient is seen for followup for hyponatremia. She has been intubated. Family is present at bedside. The patient is maintained on IV fluids at 75 mL an hours. The patient has metabolic alkalosis, which is partly compensatory. She is currently being treated for pneumonia. PHYSICAL EXAMINATION: On examination, patient is sedated. She is on the vent. Blood pressure was 104/61, heart rate 86 per minute. Patient is afebrile. EXAMINATION OF THE HEART: S1, S2. EXAMINATION OF THE LUNGS: Bilateral breath sounds are heard. ABDOMEN: Soft, nontender. Examination of lower extremities shows no significant edema. POST COMMANDER exam cannot be performed. LABS: Labs show sodium 138, potassium 5.1, chloride 91, CO2 is 45, BUN 78, serum creatinine 0.43, phosphorus 2.2. ASSESSMENT: 1. Hyponatremia, hypovolemic, currently resolved. 2. Vent dependent respiratory failure secondary to pneumonia and underlying chronic obstructive pulmonary disease and emphysema. Patient has severe end-stage chronic obstructive pulmonary disease and is home oxygen dependent. 3. Metabolic alkalosis secondary to severe advanced chronic obstructive pulmonary disease. PLAN: Continue with normal saline for now. Overall prognosis is guarded. MMODL / IJN: [id number] /
[2018-04-21 11:58] LABS: Glucose,Whole Blood 136 mg/dL (75-99)
--- NOTE | 2018-04-21 12:10 | P.PN ---
Subjective Progress Note Date: 04/21/18 Principal diagnosis: Acute hypoxemic respiratory failure secondary to acute COPD exacerbation Ms. Rizvi is a a 57-year-old female with history of severe end-stage COPD O2 dependent ( FEV1 is in the range of 26% at best, FEV1/FVC is 41%) came in with a few days' history of increased shortness of breath, cough, cough is productive with whitish phlegm, some wheezing, no chest pain, no fever, no chills, no hemoptysis. Patient normally sees Dr. Henderson for her COPD, and her primary care physician is Dr. Golden. Patient was just discharged about 6 days ago from [facility] when she was admitted initially with a similar episode of COPD exacerbation and tracheobronchitis. Patient had previous screening for alpha-1 antitrypsin deficiency, and she was told it was negative by Dr. Henderson. Chest x-ray in the ER showed no evidence of active disease, there was hyperinflation consistent with COPD. She is being treated for COPD exacerbation currently. On 04/19/2018 - patient has been lying in bed and appears to be in mild respiratory distress. Patient is currently on 5 L of oxygen via nasal cannula saturating barely at 90%. As per the nursing staff report patient has been like this since morning and she has not been getting her breathing treatments . She is also on IV Solu-Medrol and antibiotics in the form of Zosyn. 04/20/2018- last night patient's respiration became labored so patient was placed on BiPAP for a few minutes but could not tolerate it and her clinical status deteriorated and rapid response team was called. She was then intubated around 6:30 PM last night. She was on Zosyn, vancomycin and doxycycline have been added to her antibiotics. Sputum cultures and blood cultures were also ordered. Patient dropped her blood pressure for which she was started on Levophed.She is currently on a ventilator. On 04/21/18 - patient remained sedated and is being mechanically ventilated. She is off of Levophed. No acute overnight events reported by nursing staff. Review of systems: Could not be obtained as the patient is intubated Objective - Vital Signs Vital signs: Vital Signs Temp 99.0 F 04/21/18 08:00 Pulse 82 04/21/18 11:44 Resp 14 04/21/18 11:00 BP 125/69 04/20/18 02:30 Pulse Ox 96 04/21/18 11:00 Intake & Output 04/20/18 04/21/18 04/21/18 18:59 06:59 18:59 Intake Total 2028.375 1632.164 698.390 Output Total 695 530 300 Balance 0744.690 0498.164 398.390 Weight 61 kg 61 kg Intake: IV 1000 1325 600 Piperacillin-Tazobactam 3 100 100 50 .375 gm In Dextrose/Water 1 50ml.bag @ 12.5 mls/hr IVPB Q8HR [facility] Rx#: [id number] Sodium Chloride 0.9% 1, 900 975 300 000 ml @ 75 mls/hr IV . [id number] [facility] Rx#:[id number] Vancomycin 1,000 mg In 250 250 Sodium Chloride 0.9% 250 ml @ 125 mls/hr IVPB Q12H [facility] Rx#:[id number] Intake, IV Titration 1028.375 277.164 68.390 Amount Magnesium Sulfate-D5w Pmx 200 1 gm In Dextrose/Water 1 100ml.bag @ 100 mls/hr IVPB Q1H [facility] Rx#: [id number] Norepinephrin 4 mg-0.9% 378.375 103.094 Ns Pmx 4 mg In 250 ml @ Titrate IV .Q0M [facility] Rx#: [id number] Propofol 1,000 mg In 200 174.07 68.390 Empty Bag 1 bag @ Titrate IV .Q0M [facility] Rx#: [id number] Vancomycin 1,000 mg In 250 Sodium Chloride 0.9% 250 ml @ 125 mls/hr IVPB Q12H [facility] Rx#:[id number] Tube Feeding 30 Other 30 Output: Urine 495 530 100 Emesis 200 200 Other: Voiding Method Indwelling Catheter Indwelling Catheter Indwelling Catheter ABP, PAP, CO, CI - Last Documented Arterial Blood Pressure 122/65 - Exam Physical Exam: Revealed a 57-year-old female in mild respiratory distress. Head: Atraumatic, normocephalic. ET tube and orogastric tube in place HEENT:Neck is supple.No neck masses. No thyromegaly. Chest: Extremely diminished breath sound bilaterally, few wheezes bilaterally Cardiac Exam: Normal S1 and S2, no S3 gallop, no murmur. Abdomen: Soft, nontender, no megaly, no rebound, no guarding, normal bowel sounds. Extremities: No clubbing, no edema, no cyanosis Neurological Exam: Sedated. - Labs CBC & Chem 7: 04/21/18 04:31 04/21/18 04:31 Labs: Abnormal Lab Results - Last 24 Hours (Table) 04/20/18 04/20/18 04/20/18 Range/Units 12:06 18:29 23:41 WBC (3.8-10.6) k/uL RBC (3.80-5.40) m/uL Hgb (11.4-16.0) gm/dL MCHC (31.0-37.0) g/dL Neutrophils # (1.3-7.7) k/uL Lymphocytes # (1.0-4.8) k/uL ABG pCO2 (35-45) mmHg ABG pO2 (83-108) mmHg ABG HCO3 (21-25) mmol/L ABG Total CO2 (19-24) mmol/L Chloride (98-107) mmol/L Carbon Dioxide (22-30) mmol/L Creatinine (0.52-1.04) mg/dL Glucose (74-99) mg/dL POC Glucose (mg/dL) 146 H 139 H 140 H (75-99) mg/dL Phosphorus (2.5-4.5) mg/dL 04/21/18 04/21/18 04/21/18 Range/Units 04:31 04:31 05:37 WBC 15.7 H (3.8-10.6) k/uL RBC 3.66 L (3.80-5.40) m/uL Hgb 10.7 L (11.4-16.0) gm/dL MCHC 30.6 L (31.0-37.0) g/dL Neutrophils # 15.0 H (1.3-7.7) k/uL Lymphocytes # 0.2 L (1.0-4.8) k/uL ABG pCO2 (35-45) mmHg ABG pO2 (83-108) mmHg ABG HCO3 (21-25) mmol/L ABG Total CO2 (19-24) mmol/L Chloride 91 L (98-107) mmol/L Carbon Dioxide 45 H* (22-30) mmol/L Creatinine 0.43 L (0.52-1.04) mg/dL Glucose 123 H (74-99) mg/dL POC Glucose (mg/dL) 123 H (75-99) mg/dL Phosphorus 2.2 L (2.5-4.5) mg/dL 04/21/18 04/21/18 Range/Units 07:09 11:57 WBC (3.8-10.6) k/uL RBC (3.80-5.40) m/uL Hgb (11.4-16.0) gm/dL MCHC (31.0-37.0) g/dL Neutrophils # (1.3-7.7) k/uL Lymphocytes # (1.0-4.8) k/uL ABG pCO2 81 H* (35-45) mmHg ABG pO2 72 L (83-108) mmHg ABG HCO3 47 H* (21-25) mmol/L ABG Total CO2 49 H (19-24) mmol/L Chloride (98-107) mmol/L Carbon Dioxide (22-30) mmol/L Creatinine (0.52-1.04) mg/dL Glucose (74-99) mg/dL POC Glucose (mg/dL) 136 H (75-99) mg/dL Phosphorus (2.5-4.5) mg/dL Microbiology - Last 24 Hours (Table) 04/17/18 09:00 Blood Culture - Preliminary Blood No Growth after 96 hours 04/19/18 19:20 Gram Stain - Final Sputum Sputum Culture - Final Roseline albicans 04/19/18 19:50 Urine Culture - Final Urine,Catheterized 04/17/18 16:07 Blood Culture - Preliminary Blood No Growth after 72 hours 04/17/18 16:15 Blood Culture - Preliminary Blood No Growth after 72 hours Assessment and Plan Assessment: ASSESSMENT Acute hypoxic/hypercapnic respiratory failure - on mechanical ventilation Acute COPD exacerbation Hypotension - secondary to Sepsis- off of pressors currently Hyponatremia History of pneumothorax and wedge resection in the past History of bilateral mastectomy with breast reconstructive surgery Nicotine dependence Moderate protein calorie malnutrition Roseline albicans in the sputum PLAN: Continue with mechanical ventilation and IV steroids. Antibiotics in the form of Zosyn, vancomycin and doxycycline. Appreciate pulmonary recommendations - Dr. Henderson has evaluated the patient this morning and she is very well known to him. She would be a very difficult patient to extubate and may need tracheostomy and PEG tube in the near future. Patient's family members to come up with long-term treatment plan of care for her. Overall prognosis is very poor.
[2018-04-21] MEDS ORDERED: FUROSEMIDE 10 MG/ML 4 ML VIAL IV STA (15:20)
[2018-04-21 17:59] LABS: Glucose,Whole Blood 146 mg/dL (75-99)
[2018-04-21] MEDS ORDERED: VANCOMYCIN TROUGH DUE 1 EACH MISC MISCELLANE ONE (20:00)
--- NOTE | 2018-04-21 20:39 | PN ---
PROGRESS NOTE DATE OF SERVICE: 04/21/2018. REASON FOR FOLLOWUP: Fever and possible pneumonia. INTERVAL HISTORY: The patient is currently afebrile. She is hemodynamically stable. Not on any pressor support. FiO2 is down to 35%. Remains to be intubated on the vent. Tolerating her tube feeds. No diarrhea per the nursing staff. EXAMINATION: Blood pressure 111/65 with a pulse of 83, temperature of 99. She is 97% on 35% FiO2. General description is a middle aged female lying in bed in no distress. RESPIRATORY SYSTEM: Unlabored breathing. No significant wheeze. HEART: S1, S2. Regular rate and rhythm. ABDOMEN: Soft. No tenderness. LABS: Hemoglobin is 10.7, white count 15.5, BUN of 17, creatinine 0.43. DIAGNOSTIC IMPRESSION AND PLAN: Patient with acute respiratory failure, multifactorial with likely component of chronic obstructive pulmonary disease. The patient also with complaint of tracheobronchitis/pneumonia, remains currently Roseline more likely colonized. Currently covered with Zosyn and vanco. Will be continued. While waiting for clinical condition to stabilize, continue supportive care. MMODL / IJN: [id number] /
[2018-04-22 00:03] LABS: Glucose,Whole Blood 139 mg/dL (75-99)
[2018-04-22] MEDS: methylPREDNISolone SOD SUCCI 125 MG/2 ML VIAL IV SCH ×4 (00:29→17:39)
[2018-04-22] MEDS: PIPERACILLIN-TAZOBACTAM 3.375 GM in DEXTROSE/WATER 1 50ML.BAG IVPB SCH ×3 (00:30→16:13)
[2018-04-22] MEDS: INSULIN ASPART 100 UNIT/ML 1 ML 10 ML VIAL SQ SCH ×4 (00:35→17:55)
[2018-04-22] MEDS: PROPOFOL 1,000 MG in EMPTY BAG 1 BAG IV SCH ×5 (03:10→23:26)
[2018-04-22] MEDS: IPRATROPIUM-ALBUTEROL 3 ML NEB INHALATION SCH ×5 (03:36→19:29)
[2018-04-22 05:08] LABS: Basophils % (A) 0 %; Eosinophils % (A) 0 %; HCT 33.1 % (34.0-46.0); HGB 10.3 gm/dL (11.4-16.0); Hypochromasia Slight; Lymphocytes # (A) 0.3 k/uL (1.0-4.8); Lymphocytes % (A) 2 %; MCH 29.4 pg (25.0-35.0); MCHC 31.2 g/dL (31.0-37.0); MCV 94.2 fL (80.0-100.0); Mean Platelet Volume 8.5; Monocytes # (A) 0.3 k/uL (0-1.0); Monocytes % (A) 3 %; Neutrophils % (A) 95 %; Platelet Count 241 k/uL (150-450); RBC 3.51 m/uL (3.80-5.40); WBC 11.6 k/uL (3.8-10.6)
[2018-04-22 05:15] LABS: ABG Base Excess 25.2 mmol/L; ABG Oxygen Saturation 95.5 % (94-97); ABG PH 7.42 (7.35-7.45); ABG PO2 71 mmHg (83-108); ABG TCO2 52 mmol/L (19-24)
[2018-04-22 05:19] LABS: Blood Urea Nitrogen 25 mg/dL (7-17); Calcium 8.7 mg/dL (8.4-10.2); Chloride 89 mmol/L (98-107); Glucose 156 mg/dL (74-99); Phosphorus 2.8 mg/dL (2.5-4.5); Potassium 4.1 mmol/L (3.5-5.1); Sodium 139 mmol/L (137-145)
[2018-04-22 05:19] LABS: ABG HCO3 50 mmol/L (21-25); ABG PCO2 77 mmHg (35-45)
[2018-04-22 05:25] LABS: Anion Gap 2 mmol/L
[2018-04-22] MEDS: SODIUM CHLORIDE 0.9% 1,000 ML IV SCH ×2 (05:31→19:45)
[2018-04-22 05:32] LABS: Carbon Dioxide 48 mmol/L (22-30)
[2018-04-22 05:36] LABS: Glucose,Whole Blood 140 mg/dL (75-99)
--- NOTE | 2018-04-22 06:59 | XR ---
EXAMINATION TYPE: XR chest 1V DATE OF EXAM: 04/22/2018 COMPARISON: 04/21/2018 HISTORY: Respiratory difficulty TECHNIQUE: Single frontal view of the chest is obtained. FINDINGS: Right apical surgery is evident. Endotracheal tube is present with tip above the heraclio. N asogastric tube transverses the thorax tip in the abdomen. Some hyperinflation is present. Some minim al subsegmental atelectasis on the right diaphragm is not excluded. Hyperinflation suggests COPD. Int erstitium stable. Postsurgical changes are noted. IMPRESSION: Findings suggest COPD with persistent subsegmental changes at the right lung base correl ate for atelectasis versus rate. Interstitium mildly coarsened to be seen with chronic interstitial l rowena disease or mild congestion.
[2018-04-22] MEDS: CHLORHEXIDINE GLUCONATE 15 ML CUP MUCOUS MEM SCH ×2 (08:10→21:00)
[2018-04-22] MEDS: PANTOPRAZOLE 40 MG/10 ML VIAL IV SCH (08:11)
[2018-04-22] MEDS: ENOXAPARIN 40 MG/0.4 ML SYRINGE SQ SCH (08:32)
[2018-04-22] MEDS: FORMOTEROL FUMARATE 20 MCG/2 ML NEBU INHALATION SCH ×2 (08:38→19:29)
[2018-04-22] MEDS: BUDESONIDE 1 MG/2 ML NEBU INHALATION SCH ×2 (08:38→19:29)
--- NOTE | 2018-04-22 09:19 | P.PN ---
Subjective Progress Note Date: 04/22/18 Principal diagnosis: Hypoxemic respiratory failure, COPD Progress note dated 04/21/2018 This is a 57-year-old female well-known to me. She was admitted on April 17 intubated on April 19. Currently on the volume assist control mode with a rate of 14 tidal volume 350 FiO2 35% PEEP of 6. Arterial blood gases show a PaO2 of 72 and a PaCO2 of 81 and a pH is 7.36. She is on a saline IV at 75 mL an hour propofol at 50 mics per kilogram per minute and norepinephrine is on hold. No tube feeds have been started as yet. She's had an oral gastric tube in place and an endotracheal tube in place. I've asked the nurses to talk to nutrition about starting tube feeds. In addition to hypoxemic hypercapnic respiratory failure, she has a history of spontaneous pneumothorax in 2006 with previous wedge resection and mechanical pleurodesis breast cancer 2004 with bilateral breast reconstruction and sepsis with septic shock and hypotension. She is also thought to possibly have community-acquired bilateral pneumonia. I have talked to this patient in the past about possible lung transplantation but she wasn't very excited. She was anemic excited to have a evaluation. Microbiology is as far all negative. White count is 15.7 hemoglobin 10.7 hematocrit 34.8 and platelet count 234,000. In addition, sodium 138 potassium 5.1 chloride 91 CO2 45 anion gap to be running creatinine 17 and 0.43. Chest x- rays mostly consistent with hyperinflation. Computed tomography scan of the chest shows diffuse peribronchial cuffing with tree-in-bud opacities as well as diffuse nodular opacities. Progress note dated 04/22/2018 57-year-old female well-known to me. She has a history of severe COPD. She was admitted on April 17 intubated on April 19. She actually has made no progress towards extubation. I've had a series talk with the family yesterday. She likely will end up with a trach and PEG. Currently, we did do a daily eruption of sedation with a spontaneous breathing trial but unfortunately she did very poorly. Her rapid shallow breathing index was well above 105. Tidal volumes are low. Respiratory rates were very high. Her saturations dropped into the 70s. Hence was placed back on the ventilator at the previous settings. Currently, she is on the volume assist control modality with a rate of 14 tidal volume 350 FiO2 35% and a PEEP of 6. Arterial blood gases show a PaO2 of 70 a PaCO2 of 77 and a normal pH is 7.42. She is on propofol at 50 mics per kilogram per minute is saline IV at 75 mL an hour and vital high protein at 10 with a goal of 41 mL an hour. Chest x-ray shows only changes of COPD. I am and have the respiratory therapist pushed endotracheal tube down 1 cm. Objective - Vital Signs Vital signs: Vital Signs Temp 98.8 F 04/22/18 08:00 Pulse 87 04/22/18 09:07 Resp 38 H 04/22/18 08:35 BP 125/69 04/20/18 02:30 Pulse Ox 82 L 04/22/18 08:35 Intake & Output 04/21/18 04/22/18 04/22/18 18:59 06:59 18:59 Intake Total 6899.953 1421.707 253.775 Output Total 2215 575 55 Balance -687.840 5775.707 198.775 Weight 61 kg 59.4 kg Intake: IV 1175 1275 150 Piperacillin-Tazobactam 3 100 .375 gm In Dextrose/Water 1 50ml.bag @ 12.5 mls/hr IVPB Q8HR [facility] Rx#: [id number] Sodium Chloride 0.9% 1, 825 900 150 000 ml @ 75 mls/hr IV . [id number] [facility] Rx#:[id number] Vancomycin 1,000 mg In 250 375 Sodium Chloride 0.9% 250 ml @ 125 mls/hr IVPB Q12H [facility] Rx#:[id number] Intake, IV Titration 168.390 143.707 43.775 Amount Propofol 1,000 mg In 168.390 143.707 43.775 Empty Bag 1 bag @ Titrate IV .Q0M [facility] Rx#: [id number] Tube Feeding 110 260 30 Other 60 90 30 Output: Urine 2015 575 55 Emesis 200 Other: Voiding Method Indwelling Catheter Indwelling Catheter ABP, PAP, CO, CI - Last Documented Arterial Blood Pressure 150/70 - Exam No acute distress, the patient is heavily sedated. HEENT examination is grossly unremarkable. Mucous membranes are moist. No oral lesions. Endotracheal tube and orogastric tube is noted. Neck supple. Full range of motion. No adenopathy thyromegaly or neck vein distention. Cardiovascular examination reveals regular rhythm rate. S1-S2 normal. No S3 or S4. No discernible murmur noted. Lungs reveal clear breath sounds. Her sounds are equal bilaterally. A few scattered rhonchi noted bilaterally. Abdomen soft bowel sounds are heard. No masses or tenderness. Extremities are intact. No cyanosis clubbing or edema. Skin is without rash or lesion. Neurologic examination could not be adequately assessed. - Labs CBC & Chem 7: 04/22/18 05:00 04/22/18 05:00 Labs: Abnormal Lab Results - Last 24 Hours (Table) 04/21/18 04/21/18 04/22/18 Range/Units 11:57 17:56 00:01 WBC (3.8-10.6) k/uL RBC (3.80-5.40) m/uL Hgb (11.4-16.0) gm/dL Hct (34.0-46.0) % Neutrophils # (1.3-7.7) k/uL Lymphocytes # (1.0-4.8) k/uL ABG pCO2 (35-45) mmHg ABG pO2 (83-108) mmHg ABG HCO3 (21-25) mmol/L ABG Total CO2 (19-24) mmol/L Chloride (98-107) mmol/L Carbon Dioxide (22-30) mmol/L BUN (7-17) mg/dL Creatinine (0.52-1.04) mg/dL Glucose (74-99) mg/dL POC Glucose (mg/dL) 136 H 146 H 139 H (75-99) mg/dL 04/22/18 04/22/18 04/22/18 Range/Units 05:00 05:00 05:13 WBC 11.6 H (3.8-10.6) k/uL RBC 3.51 L (3.80-5.40) m/uL Hgb 10.3 L (11.4-16.0) gm/dL Hct 33.1 L (34.0-46.0) % Neutrophils # 11.0 H (1.3-7.7) k/uL Lymphocytes # 0.3 L (1.0-4.8) k/uL ABG pCO2 77 H* (35-45) mmHg ABG pO2 71 L (83-108) mmHg ABG HCO3 50 H* (21-25) mmol/L ABG Total CO2 52 H (19-24) mmol/L Chloride 89 L (98-107) mmol/L Carbon Dioxide 48 H* (22-30) mmol/L BUN 25 H (7-17) mg/dL Creatinine 0.40 L (0.52-1.04) mg/dL Glucose 156 H (74-99) mg/dL POC Glucose (mg/dL) (75-99) mg/dL 04/22/18 Range/Units 05:34 WBC (3.8-10.6) k/uL RBC (3.80-5.40) m/uL Hgb (11.4-16.0) gm/dL Hct (34.0-46.0) % Neutrophils # (1.3-7.7) k/uL Lymphocytes # (1.0-4.8) k/uL ABG pCO2 (35-45) mmHg ABG pO2 (83-108) mmHg ABG HCO3 (21-25) mmol/L ABG Total CO2 (19-24) mmol/L Chloride (98-107) mmol/L Carbon Dioxide (22-30) mmol/L BUN (7-17) mg/dL Creatinine (0.52-1.04) mg/dL Glucose (74-99) mg/dL POC Glucose (mg/dL) 140 H (75-99) mg/dL Microbiology - Last 24 Hours (Table) 04/17/18 16:07 Blood Culture - Preliminary Blood No Growth after 96 hours 04/17/18 16:15 Blood Culture - Preliminary Blood No Growth after 96 hours 04/17/18 09:00 Blood Culture - Preliminary Blood No Growth after 96 hours 04/19/18 19:20 Gram Stain - Final Sputum Sputum Culture - Final Roseline albicans Assessment and Plan Assessment: Assessment Hypoxemic and Hypercapnic Respiratory Failure Secondary to His Very Severe COPD , Status Post Intubation and Mechanical Ventilation, with attempts at spontaneous breathing trial following a daily eruption of sedation, which was unsuccessful. History of Severe Emphysema Possible Community-Acquired Pneumonia History of Spontaneous Pneumothorax in 2006 with Apical Bleb Resection and Mechanical Pleurodesis Breast Cancer, 2004, Status Post Bilateral Breast Reconstruction Hypotension, Resolved, Secondary to Sepsis Plan: Plan dated 04/21/2018 The patient is currently on the ventilator. She is currently being sedated sedated with propofol. The norepinephrine has been turned off. We will start feedings today. Gases are reasonable. Prognosis is poor. The poor lady may end up with a tracheostomy and PEG tube. I will deftly have discussions with the family. I did offer patient the previous evaluation for lung transplantation and every 4 but the patient refuses. This is her first episode of acute and severe respiratory failure. Plan dated 04/22/2018 The patient was given a daily eruption of sedation with a spontaneous breathing trial. As mentioned above, she felt very miserably. White count is 11.6 and 1110.3 hematocrit 33.1 and platelet count is normal. Sodium is 139 potassium 4.1 chloride is 89 CO2 48 year and crackles were 25 and 0.40. The patient's currently receiving all appropriate medications including nebulizer treatments antibiotics and steroids. Likely she will need a tracheostomy and PEG tube. We 'll ask one of her thoracic surgeons to contemplate that. Additional recommendations and suggestions are forthcoming. Prognosis is very guarded. Medications labs and x-rays all reviewed. Critical care time 38 minutes. Time with Patient: Greater than 30
[2018-04-22] MEDS: VANCOMYCIN 1,000 MG in SODIUM CHLORIDE 0.9% 250 ML IVPB SCH ×2 (09:21→16:14)
[2018-04-22] MEDS: guaiFENesin 600 MG TABLET.ER PO SCH (09:21)
[2018-04-22 12:05] LABS: Glucose,Whole Blood 150 mg/dL (75-99)
--- NOTE | 2018-04-22 12:16 | P.GSCN ---
History of Present Illness Consult date: 04/22/18 Reason for Consult: Evaluation and recommendations for tracheostomy and PEG tube placement. Requesting physician: Abe Henderson History of present illness: This is a 57-year-old female patient who is followed by her primary care physician Dr. Golden on an outpatient basis. She also follows with Dr. Henderson for her COPD management. She has a medical history significant for end stage COPD/ emphysema, with a FEV1 of 26% and dependent on home O2, breast cancer in 2004 with history of bilateral mastectomy, pneumonia, spontaneous right pneumothorax with threads resection and mechanical pleurodesis in 2006 and a spontaneous right pneumothorax in June 2017 and remote history of nicotine dependence with over 10 years ago. She presented to the emergency department here at [facility] on 04/17/2018 with complaints of worsening shortness of breath and nonproductive cough. Her history was obtained from her family members at her bedside who reports she did not have a hemoptysis, lightheadedness, dizziness, fever, diarrhea, nausea, vomiting, or pain. Patient was admitted for further workup and treatment. Subsequently was she was in the hospital she developed some acute hypoxic respiratory failure secondary to her acute COPD exacerbation and was intubated and placed on mechanical ventilator support. Attempts have been made by pulmonary medicine to wean the patient off mechanical ventilator support which have been unsuccessful. Subsequently there was a consult placed for thoracic surgery for evaluation for tracheostomy and percutaneous endoscopy gastrostomy tube placement. Review of Systems A 14 point review systems was completed was negative except as mentioned in the HPI. Past Medical History Past Medical History: Cancer, COPD, Pneumonia Additional Past Medical History / Comment(s): Pt recently admitted to [facility] on for acute exacerbation COPD/purulent tracheobronchitis. Other hx: Chronic respiratory failure with home O2 at 2L/NC ATC, R sided spontaneous pneumos in 2005 with surgery and again in 2016 with chest tube, breast cancer with bilateral mastectomies/reconstruction. History of Any Multi-Drug Resistant Organisms: None Reported Past Surgical History: Ablation, Breast Surgery Additional Past Surgical History / Comment(s): Bilateral mastectomies with bilateral breast reconstruction in 2004, uterine ablation in 2009, spontaneous pneumothorax in 2006 with wedge resection and mechanical pleurodesis, right pneumothorax june 2017 with chest tube placement, colonoscopy. Past Anesthesia/Blood Transfusion Reactions: No Reported Reaction Past Psychological History: No Psychological Hx Reported Smoking Status: Former smoker (Quit in 2006.) Past Alcohol Use History: None Reported Past Drug Use History: None Reported - Past Family History Mother Family Medical History: Diabetes Mellitus, Hypertension Additional Family Medical History / Comment(s): mother is 84 Father Family Medical History: COPD Additional Family Medical History / Comment(s): lung cancer Sister(s) Additional Family Medical History / Comment(s): She has 4 sisters, 1 sister with history of breast cancer, and thyroid disorder, 1 sister with history of rheumatoid arthritis, and another sister with history of lupus. Brother(s) Additional Family Medical History / Comment(s): She has 3 brothers, 1 brother has diabetes mellitus type 2. Medications and Allergies Home Medications Medication Instructions Recorded Confirmed Type Budesonide-Formot 160-4.5 Mcg 2 puff INHALATION RT-BID #120 puff 07/07/17 Rx [Symbicort 160-4.5 Mcg Inhaler] Albuterol Inhaler [Ventolin Hfa 1 - 2 puff INHALATION RT-Q6H PRN 04/05/18 History Inhaler] Albuterol Nebulized [Ventolin 2.5 mg INHALATION RT-QID 04/05/18 04/17/18 History Nebulized] Ipratropium Nebulized [Atrovent 0.5 mg INHALATION RT-QID 04/05/18 04/17/18 History Nebulized] guaiFENesin [Mucinex] 1,200 mg PO Q12HR PRN 04/17/18 04/17/18 History predniSONE See Taper PO DAILY 04/17/18 04/17/18 History Allergies Allergy/AdvReac Type Severity Reaction Status Date / Time levofloxacin [From Levaquin] AdvReac Chest Pain Verified 04/17/18 09:05 Surgical - Exam Vital Signs Temp Pulse Resp BP Pulse Ox 101.4 F H 122 H 25 H 184/92 86 L 04/17/18 08:46 04/17/18 08:46 04/17/18 08:46 04/17/18 08:46 04/17/18 08:46 - General Currently sedated with propofol drip. well developed, well nourished, no distress, no pain - Eyes PERRL, normal ocular movement - ENT normal pinna, normal nares, normal mucosa, no hearing loss, no congestion - Neck no masses, no bruits, trachea midline, no venous distension - Respiratory Essentially clear but diminished throughout. Respirations are symmetrical and nonlabored with mechanical ventilator support. Current ventilator settings are as follows: Assist control 14, TV 350, FiO2 35%, PEEP of 6. Current oxygen saturations are 99%. - Cardiovascular Regular rhythm and rate. S1 and S2 present, negative for S3, gallop or murmur. Bedside telemetry showing normal sinus rhythm heart rate 90. No edema present. Knee-high NURIA hose and sequential compression devices in place to bilateral lower extremities. - Abdomen Abdomen is soft, nontender and nondistended. Hypoactive bowel sounds all 4 abdominal quadrants. OG tube in place with vital high-protein infusing at 30 mL per hour. No organomegaly. - Genitourinary Deferred - Rectum Deferred - Integumentary no rash, no growths, no abnormal pigmentation - Neurologic Patient is currently sedated on propofol drip, neurological examination could not adequately be assessed. Results - Labs 04/22/18 05:00 04/22/18 05:00 Abnormal Lab Results - Last 24 Hours (Table) 04/21/18 04/21/18 04/22/18 Range/Units 11:57 17:56 00:01 WBC (3.8-10.6) k/uL RBC (3.80-5.40) m/uL Hgb (11.4-16.0) gm/dL Hct (34.0-46.0) % Neutrophils # (1.3-7.7) k/uL Lymphocytes # (1.0-4.8) k/uL ABG pCO2 (35-45) mmHg ABG pO2 (83-108) mmHg ABG HCO3 (21-25) mmol/L ABG Total CO2 (19-24) mmol/L Chloride (98-107) mmol/L Carbon Dioxide (22-30) mmol/L BUN (7-17) mg/dL Creatinine (0.52-1.04) mg/dL Glucose (74-99) mg/dL POC Glucose (mg/dL) 136 H 146 H 139 H (75-99) mg/dL 04/22/18 04/22/18 04/22/18 Range/Units 05:00 05:00 05:13 WBC 11.6 H (3.8-10.6) k/uL RBC 3.51 L (3.80-5.40) m/uL Hgb 10.3 L (11.4-16.0) gm/dL Hct 33.1 L (34.0-46.0) % Neutrophils # 11.0 H (1.3-7.7) k/uL Lymphocytes # 0.3 L (1.0-4.8) k/uL ABG pCO2 77 H* (35-45) mmHg ABG pO2 71 L (83-108) mmHg ABG HCO3 50 H* (21-25) mmol/L ABG Total CO2 52 H (19-24) mmol/L Chloride 89 L (98-107) mmol/L Carbon Dioxide 48 H* (22-30) mmol/L BUN 25 H (7-17) mg/dL Creatinine 0.40 L (0.52-1.04) mg/dL Glucose 156 H (74-99) mg/dL POC Glucose (mg/dL) (75-99) mg/dL 04/22/18 Range/Units 05:34 WBC (3.8-10.6) k/uL RBC (3.80-5.40) m/uL Hgb (11.4-16.0) gm/dL Hct (34.0-46.0) % Neutrophils # (1.3-7.7) k/uL Lymphocytes # (1.0-4.8) k/uL ABG pCO2 (35-45) mmHg ABG pO2 (83-108) mmHg ABG HCO3 (21-25) mmol/L ABG Total CO2 (19-24) mmol/L Chloride (98-107) mmol/L Carbon Dioxide (22-30) mmol/L BUN (7-17) mg/dL Creatinine (0.52-1.04) mg/dL Glucose (74-99) mg/dL POC Glucose (mg/dL) 140 H (75-99) mg/dL Microbiology - Last 24 Hours (Table) 04/17/18 09:00 Blood Culture - Preliminary Blood No Growth after 120 hours 04/17/18 16:07 Blood Culture - Preliminary Blood No Growth after 96 hours 04/17/18 16:15 Blood Culture - Preliminary Blood No Growth after 96 hours 04/19/18 19:20 Gram Stain - Final Sputum Sputum Culture - Final Roseline albicans Diabetes panel 04/22/18 Range/Units 05:00 Sodium 139 (137-145) mmol/L Potassium 4.1 (3.5-5.1) mmol/L Chloride 89 L (98-107) mmol/L Carbon Dioxide 48 H* (22-30) mmol/L BUN 25 H (7-17) mg/dL Creatinine 0.40 L (0.52-1.04) mg/dL Glucose 156 H (74-99) mg/dL Calcium 8.7 (8.4-10.2) mg/dL Calcium panel 04/22/18 Range/Units 05:00 Calcium 8.7 (8.4-10.2) mg/dL Phosphorus 2.8 (2.5-4.5) mg/dL Pituitary panel 04/22/18 Range/Units 05:00 Sodium 139 (137-145) mmol/L Potassium 4.1 (3.5-5.1) mmol/L Chloride 89 L (98-107) mmol/L Carbon Dioxide 48 H* (22-30) mmol/L BUN 25 H (7-17) mg/dL Creatinine 0.40 L (0.52-1.04) mg/dL Glucose 156 H (74-99) mg/dL Calcium 8.7 (8.4-10.2) mg/dL Adrenal panel 04/22/18 Range/Units 05:00 Sodium 139 (137-145) mmol/L Potassium 4.1 (3.5-5.1) mmol/L Chloride 89 L (98-107) mmol/L Carbon Dioxide 48 H* (22-30) mmol/L BUN 25 H (7-17) mg/dL Creatinine 0.40 L (0.52-1.04) mg/dL Glucose 156 H (74-99) mg/dL Calcium 8.7 (8.4-10.2) mg/dL - Imaging Chest x-ray: report reviewed, image reviewed Assessment and Plan (1) COPD with acute exacerbation Current Visit: Yes Status: Acute Code(s): J44.1 - CHRONIC OBSTRUCTIVE PULMONARY DISEASE W (ACUTE) EXACERBATION SNOMED Code(s): 075423413 (2) Acute exacerbation of chronic obstructive airways disease Current Visit: No Status: Acute Code(s): J44.1 - CHRONIC OBSTRUCTIVE PULMONARY DISEASE W (ACUTE) EXACERBATION SNOMED Code(s): 403365288 (3) Acute respiratory failure with hypoxia Current Visit: No Status: Acute Code(s): J96.01 - ACUTE RESPIRATORY FAILURE WITH HYPOXIA SNOMED Code(s): 12356441 (4) Hypertension Current Visit: No Status: Acute Code(s): I10 - ESSENTIAL (PRIMARY) HYPERTENSION SNOMED Code(s): 29280104 (5) History of bilateral breast cancer Current Visit: No Status: Chronic Code(s): Z85.3 - PERSONAL HISTORY OF MALIGNANT NEOPLASM OF BREAST SNOMED Code(s): 494252556 (6) History of bilateral mastectomy Current Visit: No Status: Chronic Code(s): Z90.13 - ACQUIRED ABSENCE OF BILATERAL BREASTS AND NIPPLES SNOMED Code(s): 536002157 (7) History of pneumothorax Current Visit: Yes Status: Acute Code(s): Z87.09 - PERSONAL HISTORY OF OTHER DISEASES OF THE RESPIRATORY SYSTEM SNOMED Code(s): 936696665 Plan: The patient was seen and examined. Her chart and diagnostics reviewed. Dr. Prabhakar has met with the patient's family and has discussed the risks and benefits of tracheostomy and percutaneous endoscopy placed gastrostomy tube. The patient's family agrees and wishes to proceed with the tracheostomy and PEG tube placement. The patient will be placed nothing by mouth after midnight and will be scheduled for a tracheostomy and PEG tube placement tomorrow 04/23/2018. Thank you Dr. Henderson for this consult and we look for to working within the care of your patient. Time with Patient: Greater than 30
--- NOTE | 2018-04-22 16:15 | P.PN ---
Subjective 57-year-old female with history of severe end-stage COPD O2 dependent ( FEV1 is in the range of 26% at best, FEV1/FVC is 41%) came in with a few days' history of increased shortness of breath, cough, cough is productive with whitish phlegm , some wheezing, no chest pain, no fever, no chills, no hemoptysis. Patient normally sees Dr. Henderson for her COPD, and her primary care physician is Dr. Golden. Patient was just discharged about 6 days ago from [facility] when she was admitted initially with a similar episode of COPD exacerbation and tracheobronchitis. Patient had previous screening for alpha- 1 antitrypsin deficiency, and she was told it was negative by Dr. Henderson. Chest x-ray in the ER showed no evidence of active disease, there was hyperinflation consistent with COPD. She is being treated for COPD exacerbation currently. On 04/19/2018 - patient has been lying in bed and appears to be in mild respiratory distress. Patient is currently on 5 L of oxygen via nasal cannula saturating barely at 90%. As per the nursing staff report patient has been like this since morning and she has not been getting her breathing treatments . She is also on IV Solu-Medrol and antibiotics in the form of Zosyn. 04/20/2018- last night patient's respiration became labored so patient was placed on BiPAP for a few minutes but could not tolerate it and her clinical status deteriorated and rapid response team was called. She was then intubated around 6:30 PM last night. She was on Zosyn, vancomycin and doxycycline have been added to her antibiotics. Sputum cultures and blood cultures were also ordered. Patient dropped her blood pressure for which she was started on Levophed.She is currently on a ventilator. On 04/21/18 - patient remained sedated and is being mechanically ventilated. She is off of Levophed. No acute overnight events reported by nursing staff. 04/22/2018 Patient failed weaning trial today. Objective - Vital Signs Vital signs: Vital Signs Temp 98.9 F 04/22/18 16:00 Pulse 85 04/22/18 16:00 Resp 19 04/22/18 16:00 BP 125/69 04/20/18 02:30 Pulse Ox 94 L 04/22/18 16:00 Intake & Output 04/21/18 04/22/18 04/22/18 18:59 06:59 18:59 Intake Total 2079.743 5839.707 1580.000 Output Total 2215 575 322 Balance -893.783 7323.707 1258.000 Weight 61 kg 59.4 kg Intake: IV 1175 1275 800.0 Piperacillin-Tazobactam 3 100 50.0 .375 gm In Dextrose/Water 1 50ml.bag @ 12.5 mls/hr IVPB Q8HR [facility] Rx#: [id number] Sodium Chloride 0.9% 1, 825 900 750 000 ml @ 75 mls/hr IV . [id number] [facility] Rx#:[id number] Vancomycin 1,000 mg In 250 375 Sodium Chloride 0.9% 250 ml @ 125 mls/hr IVPB Q12H [facility] Rx#:[id number] Intake, IV Titration 168.390 143.707 350.000 Amount Propofol 1,000 mg In 168.390 143.707 100.000 Empty Bag 1 bag @ Titrate IV .Q0M [facility] Rx#: [id number] Vancomycin 1,000 mg In 250 Sodium Chloride 0.9% 250 ml @ 125 mls/hr IVPB Q8H [facility] Rx#:[id number] Tube Feeding 110 260 340 Other 60 90 90 Output: Urine 2015 575 322 Emesis 200 Other: Voiding Method Indwelling Catheter Indwelling Catheter Indwelling Catheter ABP, PAP, CO, CI - Last Documented Arterial Blood Pressure 115/57 - Exam Physical Exam: Revealed a 57-year-old female in mild respiratory distress. Head: Atraumatic, normocephalic. ET tube and orogastric tube in place HEENT:Neck is supple.No neck masses. No thyromegaly. Chest: Extremely diminished breath sound bilaterally, few wheezes bilaterally Cardiac Exam: Normal S1 and S2, no S3 gallop, no murmur. Abdomen: Soft, nontender, no megaly, no rebound, no guarding, normal bowel sounds. Extremities: No clubbing, no edema, no cyanosis Neurological Exam: Sedated. - Labs CBC & Chem 7: 04/22/18 05:00 04/22/18 05:00 Labs: Abnormal Lab Results - Last 24 Hours (Table) 04/21/18 04/22/18 04/22/18 Range/Units 17:56 00:01 05:00 WBC 11.6 H (3.8-10.6) k/uL RBC 3.51 L (3.80-5.40) m/uL Hgb 10.3 L (11.4-16.0) gm/dL Hct 33.1 L (34.0-46.0) % Neutrophils # 11.0 H (1.3-7.7) k/uL Lymphocytes # 0.3 L (1.0-4.8) k/uL ABG pCO2 (35-45) mmHg ABG pO2 (83-108) mmHg ABG HCO3 (21-25) mmol/L ABG Total CO2 (19-24) mmol/L Chloride (98-107) mmol/L Carbon Dioxide (22-30) mmol/L BUN (7-17) mg/dL Creatinine (0.52-1.04) mg/dL Glucose (74-99) mg/dL POC Glucose (mg/dL) 146 H 139 H (75-99) mg/dL 04/22/18 04/22/18 04/22/18 Range/Units 05:00 05:13 05:34 WBC (3.8-10.6) k/uL RBC (3.80-5.40) m/uL Hgb (11.4-16.0) gm/dL Hct (34.0-46.0) % Neutrophils # (1.3-7.7) k/uL Lymphocytes # (1.0-4.8) k/uL ABG pCO2 77 H* (35-45) mmHg ABG pO2 71 L (83-108) mmHg ABG HCO3 50 H* (21-25) mmol/L ABG Total CO2 52 H (19-24) mmol/L Chloride 89 L (98-107) mmol/L Carbon Dioxide 48 H* (22-30) mmol/L BUN 25 H (7-17) mg/dL Creatinine 0.40 L (0.52-1.04) mg/dL Glucose 156 H (74-99) mg/dL POC Glucose (mg/dL) 140 H (75-99) mg/dL 04/22/18 Range/Units 12:03 WBC (3.8-10.6) k/uL RBC (3.80-5.40) m/uL Hgb (11.4-16.0) gm/dL Hct (34.0-46.0) % Neutrophils # (1.3-7.7) k/uL Lymphocytes # (1.0-4.8) k/uL ABG pCO2 (35-45) mmHg ABG pO2 (83-108) mmHg ABG HCO3 (21-25) mmol/L ABG Total CO2 (19-24) mmol/L Chloride (98-107) mmol/L Carbon Dioxide (22-30) mmol/L BUN (7-17) mg/dL Creatinine (0.52-1.04) mg/dL Glucose (74-99) mg/dL POC Glucose (mg/dL) 150 H (75-99) mg/dL Microbiology - Last 24 Hours (Table) 04/17/18 09:00 Blood Culture - Preliminary Blood No Growth after 120 hours 04/17/18 16:07 Blood Culture - Preliminary Blood No Growth after 96 hours 04/17/18 16:15 Blood Culture - Preliminary Blood No Growth after 96 hours Assessment and Plan Plan: Acute hypoxic/hypercapnic respiratory failure - on mechanical ventilation Acute COPD exacerbation Hypotension - secondary to Sepsis- off of pressors currently Hyponatremia History of pneumothorax and wedge resection in the past History of bilateral mastectomy with breast reconstructive surgery Nicotine dependence Moderate protein calorie malnutrition Roseline albicans in the sputum PLAN: Continue with mechanical ventilation and IV steroids. Antibiotics in the form of Zosyn, vancomycin and doxycycline. Appreciate pulmonary recommendations - Dr. Henderson has evaluated the patient this morning and she is very well known to him. She would be a very difficult patient to extubate and may need tracheostomy and PEG tube in the near future. Patient's family members to come up with long-term treatment plan of care for her. Overall prognosis is very poor.
--- NOTE | 2018-04-22 16:16 | PN ---
PROGRESS NOTE The patient is seen for followup for hyponatremia. Her serum sodium level has normalized. It is staying at about 139-138 mEq/L. The patient remains alkalotic with metabolic alkalosis associated with severe COPD. She is currently on the vent. The patient has good urine output. EXAMINATION: Patient is on the vent. Blood pressure at 97/48, heart rate 81 per minute. Patient is afebrile. Examination shows bilateral breath sounds are heard. Abdomen is soft, nontender. Examination of the lower extremities shows no significant edema. [employer] SUPER[employer]OR exam cannot be performed. LAB: Show sodium 139, potassium 4.1, CO2 48, BUN 25, serum creatinine 0.4, hemoglobin 10.3 g/dL. ASSESSMENT: 1. Hypovolemic hyponatremia, currently resolved. The patient remains on normal saline at 75 mL an hour. 2. Respiratory failure, hypoxic and hypercapnic. Schedule for trach and PEG, given the severe underlying chronic obstructive pulmonary disease. 3. Metabolic alkalosis, mostly associated with severe chronic obstructive pulmonary disease and CO2 retention. Could use Diamox, however this would interfere with the compensatory mechanism, but the patient is now on the vent. I will defer to pulmonology. 4. Chronic obstructive pulmonary disease exacerbation, maintained on IV steroids. 5. Possible pneumonia maintained on antibiotics. PLAN: Continue with the normal saline for now. MMODL / IJN: [id number] /
[2018-04-22 17:54] LABS: Glucose,Whole Blood 140 mg/dL (75-99)
[2018-04-22] MEDS: HYDROmorphone 0.5 MG/0.5 ML SYRINGE IVP PRN (20:49)
--- NOTE | 2018-04-22 23:31 | PN ---
PROGRESS NOTE DATE OF SERVICE: 04/22/2018. REASON FOR FOLLOWUP: Pneumonia. INTERVAL HISTORY: The patient is afebrile. The patient remains to be intubated on the vent. Apparently, she did fail her breathing therapy this morning per the RN. FiO2 is currently stable at 40%. She has been tolerating her tube feeds and already has been noticed and no significant purulent secretions through the ET per the ER. EXAMINATION: Blood pressure is 123/60 with a pulse of 97, temperature of 98. She is 94% on 40% FiO2. General description is a middle-aged female intubated on the vent. RESPIRATORY SYSTEM: Unlabored breathing with decreased breath sounds. No wheeze. HEART: S1, S2. Regular rate and rhythm. ABDOMEN: Soft. No tenderness. EXTREMITIES: No edema of the feet. LABS: Hemoglobin 10.8, white count of 11.6, BUN of 25, creatinine 0.40. Sputum showing Roseline albicans. Blood culture has been negative. DIAGNOSTIC IMPRESSION AND PLAN: Patient with acute respiratory failure, multifactorial in a patient who did have a component of chronic obstructive pulmonary disease exacerbation, was admitted with a complaint of cough and pneumonia. Sputum has been negative for resistant pathogen. Currently on Zosyn, will be continued while waiting for condition to stabilize. Continue supportive care. MMODL / IJN: [id number] /
[2018-04-23] MEDS: PIPERACILLIN-TAZOBACTAM 3.375 GM in DEXTROSE/WATER 1 50ML.BAG IVPB SCH ×3 (00:32→16:15)
[2018-04-23] MEDS: methylPREDNISolone SOD SUCCI 125 MG/2 ML VIAL IV SCH ×4 (00:32→17:48)
[2018-04-23] MEDS: IPRATROPIUM-ALBUTEROL 3 ML NEB INHALATION SCH ×7 (00:32→23:13)
[2018-04-23 00:38] LABS: Glucose,Whole Blood 160 mg/dL (75-99)
[2018-04-23] MEDS: INSULIN ASPART 100 UNIT/ML 1 ML 10 ML VIAL SQ SCH ×4 (00:43→17:47)
[2018-04-23] MEDS: VANCOMYCIN 1,000 MG in SODIUM CHLORIDE 0.9% 250 ML IVPB SCH ×3 (01:21→17:52)
[2018-04-23] MEDS: HYDROmorphone 0.5 MG/0.5 ML SYRINGE IVP PRN ×3 (03:14→19:42)
[2018-04-23 05:15] LABS: Blood Urea Nitrogen 28 mg/dL (7-17); Calcium 8.7 mg/dL (8.4-10.2); Chloride 94 mmol/L (98-107); Glucose 124 mg/dL (74-99); Phosphorus 3.5 mg/dL (2.5-4.5); Potassium 4.7 mmol/L (3.5-5.1); Sodium 143 mmol/L (137-145)
[2018-04-23 05:21] LABS: Anion Gap 0 mmol/L
[2018-04-23 05:22] LABS: Carbon Dioxide 49 mmol/L (22-30)
[2018-04-23 05:24] LABS: Basophils % (A) 0 %; Eosinophils % (A) 0 %; HCT 31.5 % (34.0-46.0); HGB 9.7 gm/dL (11.4-16.0); Hypochromasia Moderate; Lymphocytes # (A) 0.2 k/uL (1.0-4.8); Lymphocytes % (A) 2 %; MCH 29.4 pg (25.0-35.0); MCHC 30.8 g/dL (31.0-37.0); MCV 95.2 fL (80.0-100.0); Monocytes # (A) 0.2 k/uL (0-1.0); Monocytes % (A) 2 %; Neutrophils # (A) 9.9 k/uL (1.3-7.7); Neutrophils % (A) 95 %; Platelet Count 224 k/uL (150-450); RDW 13.4 % (11.5-15.5); WBC 10.4 k/uL (3.8-10.6)
[2018-04-23 05:28] LABS: ABG Base Excess 22.7 mmol/L; ABG Oxygen Saturation 98.1 % (94-97); ABG PH 7.35 (7.35-7.45); ABG PO2 97 mmHg (83-108); ABG TCO2 51 mmol/L (19-24)
[2018-04-23] MEDS ORDERED: MIDAZOLAM 2 MG/2 ML VIAL IV PRN (05:28)
[2018-04-23 05:29] LABS: ABG PCO2 87 mmHg (35-45)
[2018-04-23 05:30] LABS: ABG HCO3 48 mmol/L (21-25)
[2018-04-23] MEDS ORDERED: LACTATED RINGERS 1,000 ML IV SCH (05:30)
[2018-04-23] MEDS: PROPOFOL 1,000 MG in EMPTY BAG 1 BAG IV SCH ×2 (06:09→15:35)
--- NOTE | 2018-04-23 07:18 | XR ---
EXAMINATION TYPE: XR chest 1V DATE OF EXAM: 04/23/2018 COMPARISON: 04/22/2018 HISTORY: Ventilatory dependent respiratory failure. TECHNIQUE: Single frontal view of the chest is obtained. FINDINGS: Endotracheal and enteric tubes are unchanged in position. There is engorgement of the cent ral pulmonary vasculature with the left pulmonary artery en face. Cardiomediastinal silhouette is sta ble and nonenlarged. There is diffuse interstitial prominence as seen on the prior. Pulmonary hyperin flation relates underlying COPD with biapical pleural-parenchymal thickening and sutures within the r ight lung apex. IMPRESSION: Unchanged endotracheal and enteric tube positioning. Persistent vascular engorgement and prominent interstitium suggest mild cardiogenic or noncardiogenic fluid overload. Tree-in-bud opacit y seen on the prior CT are not well visualized radiographically.
[2018-04-23] MEDS: FORMOTEROL FUMARATE 20 MCG/2 ML NEBU INHALATION SCH ×2 (07:51→19:14)
[2018-04-23] MEDS: BUDESONIDE 1 MG/2 ML NEBU INHALATION SCH ×2 (07:52→19:14)
--- NOTE | 2018-04-23 09:12 | P.PN ---
Subjective Progress Note Date: 04/23/18 Principal diagnosis: Hypoxemic respiratory failure, COPD Progress note dated 04/21/2018 This is a 57-year-old female well-known to me. She was admitted on April 17 intubated on April 19. Currently on the volume assist control mode with a rate of 14 tidal volume 350 FiO2 35% PEEP of 6. Arterial blood gases show a PaO2 of 72 and a PaCO2 of 81 and a pH is 7.36. She is on a saline IV at 75 mL an hour propofol at 50 mics per kilogram per minute and norepinephrine is on hold. No tube feeds have been started as yet. She's had an oral gastric tube in place and an endotracheal tube in place. I've asked the nurses to talk to nutrition about starting tube feeds. In addition to hypoxemic hypercapnic respiratory failure, she has a history of spontaneous pneumothorax in 2006 with previous wedge resection and mechanical pleurodesis breast cancer 2004 with bilateral breast reconstruction and sepsis with septic shock and hypotension. She is also thought to possibly have community-acquired bilateral pneumonia. I have talked to this patient in the past about possible lung transplantation but she wasn't very excited. She was anemic excited to have a evaluation. Microbiology is as far all negative. White count is 15.7 hemoglobin 10.7 hematocrit 34.8 and platelet count 234,000. In addition, sodium 138 potassium 5.1 chloride 91 CO2 45 anion gap to be running creatinine 17 and 0.43. Chest x- rays mostly consistent with hyperinflation. Computed tomography scan of the chest shows diffuse peribronchial cuffing with tree-in-bud opacities as well as diffuse nodular opacities. Progress note dated 04/22/2018 57-year-old female well-known to me. She has a history of severe COPD. She was admitted on April 17 intubated on April 19. She actually has made no progress towards extubation. I've had a series talk with the family yesterday. She likely will end up with a trach and PEG. Currently, we did do a daily eruption of sedation with a spontaneous breathing trial but unfortunately she did very poorly. Her rapid shallow breathing index was well above 105. Tidal volumes are low. Respiratory rates were very high. Her saturations dropped into the 70s. Hence was placed back on the ventilator at the previous settings. Currently, she is on the volume assist control modality with a rate of 14 tidal volume 350 FiO2 35% and a PEEP of 6. Arterial blood gases show a PaO2 of 70 a PaCO2 of 77 and a normal pH is 7.42. She is on propofol at 50 mics per kilogram per minute is saline IV at 75 mL an hour and vital high protein at 10 with a goal of 41 mL an hour. Chest x-ray shows only changes of COPD. I am and have the respiratory therapist pushed endotracheal tube down 1 cm. Progress note dated 04/23/2018 57-year-old female well-known to me. She has a history of severe COPD with an FEV1 that's below 30%. Currently still on the ventilator. She is on the volume assist control mode with a rate of 14, tidal volume 350, FiO2 40%, and PEEP of 6. Arterial blood gases show a PaO2 of 96 a PaCO2 of 87 and a pH of 7.35. She is scheduled for a tracheostomy and PEG tube placement today at 1 PM. Chest x-ray shows a minimal infiltrate in the right lower lobe. She is on a saline IV at 55 mL an hour lactated Ringer's at 20 mL an hour. Tube feedings are off in anticipation of her surgery today. She really has not made any progress towards weaning and extubation. I have had discussions with the family. They understand her poor prognosis. She will have a daily interuption of sedation today. Objective - Vital Signs Vital signs: Vital Signs Temp 98.4 F 04/23/18 04:00 Pulse 88 04/23/18 08:14 Resp 16 04/23/18 08:47 BP 125/69 04/20/18 02:30 Pulse Ox 97 04/23/18 07:00 Intake & Output 04/22/18 04/23/18 04/23/18 18:59 06:59 18:59 Intake Total 2144.787 1719.368 75 Output Total 412 542 40 Balance 9688.954 0613.368 35 Weight 63.4 kg Intake: IV 975.0 1337.5 75 Lactated Ringers 1,000 ml 20 @ 20 mls/hr IV .Q24H [facility] Rx#:[id number] Piperacillin-Tazobactam 3 75.0 62.5 .375 gm In Dextrose/Water 1 50ml.bag @ 12.5 mls/hr IVPB Q8HR [facility] Rx#: [id number] Sodium Chloride 0.9% 1, 900 900 55 000 ml @ 75 mls/hr IV . [id number] [facility] Rx#:[id number] Vancomycin 1,000 mg In 375 Sodium Chloride 0.9% 250 ml @ 125 mls/hr IVPB Q12H [facility] Rx#:[id number] Intake, IV Titration 679.787 171.868 Amount Propofol 1,000 mg In 179.787 171.868 Empty Bag 1 bag @ Titrate IV .Q0M [facility] Rx#: [id number] Vancomycin 1,000 mg In 500 Sodium Chloride 0.9% 250 ml @ 125 mls/hr IVPB Q8H [facility] Rx#:[id number] Tube Feeding 400 180 Other 90 30 Output: Urine 412 542 40 Other: Voiding Method Indwelling Catheter Indwelling Catheter Indwelling Catheter ABP, PAP, CO, CI - Last Documented Arterial Blood Pressure 126/60 - Exam No acute distress, the patient is heavily sedated. HEENT examination is grossly unremarkable. Mucous membranes are moist. No oral lesions. Endotracheal tube and orogastric tube is noted. Neck supple. Full range of motion. No adenopathy thyromegaly or neck vein distention. Cardiovascular examination reveals regular rhythm rate. S1-S2 normal. No S3 or S4. No discernible murmur noted. Lungs reveal clear breath sounds. Her sounds are equal bilaterally. A few scattered rhonchi noted bilaterally. Abdomen soft bowel sounds are heard. No masses or tenderness. Extremities are intact. No cyanosis clubbing or edema. Skin is without rash or lesion. Neurologic examination could not be adequately assessed. - Labs CBC & Chem 7: 04/23/18 04:50 04/23/18 04:50 Labs: Abnormal Lab Results - Last 24 Hours (Table) 04/22/18 04/22/18 04/23/18 Range/Units 12:03 17:52 00:36 RBC (3.80-5.40) m/uL Hgb (11.4-16.0) gm/dL Hct (34.0-46.0) % MCHC (31.0-37.0) g/dL Neutrophils # (1.3-7.7) k/uL Lymphocytes # (1.0-4.8) k/uL ABG pCO2 (35-45) mmHg ABG HCO3 (21-25) mmol/L ABG Total CO2 (19-24) mmol/L ABG O2 Saturation (94-97) % Chloride (98-107) mmol/L Carbon Dioxide (22-30) mmol/L BUN (7-17) mg/dL Creatinine (0.52-1.04) mg/dL Glucose (74-99) mg/dL POC Glucose (mg/dL) 150 H 140 H 160 H (75-99) mg/dL 04/23/18 04/23/18 04/23/18 Range/Units 04:50 04:50 05:24 RBC 3.30 L (3.80-5.40) m/uL Hgb 9.7 L (11.4-16.0) gm/dL Hct 31.5 L (34.0-46.0) % MCHC 30.8 L (31.0-37.0) g/dL Neutrophils # 9.9 H (1.3-7.7) k/uL Lymphocytes # 0.2 L (1.0-4.8) k/uL ABG pCO2 87 H* (35-45) mmHg ABG HCO3 48 H* (21-25) mmol/L ABG Total CO2 51 H (19-24) mmol/L ABG O2 Saturation 98.1 H (94-97) % Chloride 94 L (98-107) mmol/L Carbon Dioxide 49 H* (22-30) mmol/L BUN 28 H (7-17) mg/dL Creatinine 0.40 L (0.52-1.04) mg/dL Glucose 124 H (74-99) mg/dL POC Glucose (mg/dL) (75-99) mg/dL Microbiology - Last 24 Hours (Table) 04/17/18 16:07 Blood Culture - Preliminary Blood No Growth after 120 hours 04/17/18 16:15 Blood Culture - Preliminary Blood No Growth after 120 hours 04/17/18 09:00 Blood Culture - Preliminary Blood No Growth after 120 hours Assessment and Plan Assessment: Assessment Hypoxemic and Hypercapnic Respiratory Failure Secondary to His Very Severe COPD , Status Post Intubation and Mechanical Ventilation, with attempts at spontaneous breathing trial following a daily eruption of sedation, which was unsuccessful. History of Severe Emphysema, stage IV, with an FEV1 that is less than 30% of predicted. Possible Community-Acquired Pneumonia, right lower lobe. History of Spontaneous Pneumothorax in 2006 with Apical Bleb Resection and Mechanical Pleurodesis Breast Cancer, 2005, Status Post Bilateral Breast Reconstruction Hypotension, Resolved, Secondary to Sepsis Anticipated tracheostomy and PEG tube placement on April 23. Plan: Plan dated 04/21/2018 The patient is currently on the ventilator. She is currently being sedated sedated with propofol. The norepinephrine has been turned off. We will start feedings today. Gases are reasonable. Prognosis is poor. The poor lady may end up with a tracheostomy and PEG tube. I will deftly have discussions with the family. I did offer patient the previous evaluation for lung transplantation and every 4 but the patient refuses. This is her first episode of acute and severe respiratory failure. Plan dated 04/22/2018 The patient was given a daily eruption of sedation with a spontaneous breathing trial. As mentioned above, she felt very miserably. White count is 11.6 and 1110.3 hematocrit 33.1 and platelet count is normal. Sodium is 139 potassium 4.1 chloride is 89 CO2 48 year and crackles were 25 and 0.40. The patient's currently receiving all appropriate medications including nebulizer treatments antibiotics and steroids. Likely she will need a tracheostomy and PEG tube. We 'll ask one of her thoracic surgeons to contemplate that. Additional recommendations and suggestions are forthcoming. Prognosis is very guarded. Medications labs and x-rays all reviewed. Critical care time 38 minutes. Plan dated 04/23/2018 The patient will get a daily interruption of sedation. No attempts at weaning today. Vent settings and blood gases are reasonable. Tracheostomy and PEG tube placement today at 1 PM. Chest x-ray shows a mild right lower lobe infiltrate. Medications labs and x-rays are reviewed. I will have further discussions with the family. Prognosis is guarded. Additional recommendations and suggestions are forthcoming. White count 10.4, hemoglobin 9.7, hematocrit 31.5, and platelet count 224,000. Sodium potassium are normal. Chloride is 94 and CO2 49. BUN and creatinine were 28 and 0.4. Thus far, microbiology all negative. Critical care time 36 minutes Time with Patient: Greater than 30
[2018-04-23] MEDS: PANTOPRAZOLE 40 MG/10 ML VIAL IV SCH (09:34)
[2018-04-23] MEDS: CHLORHEXIDINE GLUCONATE 15 ML CUP MUCOUS MEM SCH ×2 (09:34→21:25)
[2018-04-23] MEDS: ENOXAPARIN 40 MG/0.4 ML SYRINGE SQ SCH (09:34)
[2018-04-23] MEDS ORDERED: SODIUM CHLORIDE 0.9% 1,000 ML IV ONE (10:35)
[2018-04-23] MEDS ORDERED: LIDOCAINE 1% (PF) 10 MG/ML (30 ML SDV) SQ ONE (10:35)
[2018-04-23] MEDS ORDERED: ROCURONIUM BROMIDE 10 MG/ML 10 ML VIAL IV ONE (10:35)
[2018-04-23] MEDS ORDERED: LIDOCAINE 1% INJ 10MG/ML (20 ML MDV) ONE (10:35)
[2018-04-23] MEDS ORDERED: MIDAZOLAM 2 MG/2 ML VIAL ONE (10:35)
[2018-04-23] MEDS ORDERED: fentaNYL (PF) 50 MCG/ML 2 ML AMP ONE (10:35)
[2018-04-23 12:10] LABS: Glucose,Whole Blood 111 mg/dL (75-99)
--- NOTE | 2018-04-23 13:05 | P.PCN ---
Date of Procedure: 04/23/18 Preoperative Diagnosis: Respiratory failure with inability to wean from vent Postoperative Diagnosis: Same Procedure(s) Performed: Tracheostomy Anesthesia: DORA Surgeon: Theron Prabhakar Estimated Blood Loss (ml): 10 Pathology: none sent Condition: stable Disposition: no change Indications for Procedure: Patient has severe COPD and was intubated after an episode of respiratory failure. She has been predictably difficult to wean. Operative Findings: No significant abnormalities were seen on tracheostomy Description of Procedure: With the patient spine position, under benefit of general anesthesia, with the patient already intubated, we prepped and draped in standard fashion. We made a small transverse incision 2 fingerbreadths above the sternal notch. Superficial fascias were incised transversely. Strap muscles were split in the midline and the trachea was exposed. The isthmus of the thyroid was divided with electrocautery. At this phase we made certain that we had excellent hemostasis. We then incised the second through the fourth tracheal rings longitudinally. We dilated the opening and took the endotracheal tube up above this opening. We initially tried an 8 Shiley fenestrated however there was inadequate tidal volumes and therefore a #8 Bivona foam cuff tube was placed. She ventilated well with this. The corners of the incision were closed with nylon. These same sutures were utilized to secure the flanges of the trach tube. Sterile dressings were applied. The patient tolerated the procedure well and we proceeded with insertion of PEG tube.
--- NOTE | 2018-04-23 13:08 | P.PCN ---
Date of Procedure: 04/23/18 Preoperative Diagnosis: Inability to swallow secondary to that dependency Postoperative Diagnosis: Same Procedure(s) Performed: Insertion of percutaneous endoscopic gastrostomy tube Anesthesia: DORA Surgeon: Theron Prabhakar Estimated Blood Loss (ml): 2 Disposition: ICU Indications for Procedure: The patient requires nutrition and was unable to swallow secondary to that dependency. Operative Findings: No significant abnormalities were seen on endoscopy. Description of Procedure: With the patient spine position, under benefit of general anesthesia with the patient having her trach in place. We prepped and draped in standard fashion. We placed the endoscope under direct visualization and traversed the esophagus easily. The stomach was insufflated. We isolated an area on the anterior abdominal wall which had been prepped which corresponded to the anterior wall of stomach. We made a quarter inch incision in this location. Through this was placed a needle and trocar. The trocar was removed and the guidewires placed through the needle. The guidewire was grasped with a snare through the scope and brought out through the mouth. The outer cannula was removed and the PEG tube placed over the guidewire in a modified Seldinger technique. Once it exited the anterior abdominal wall we used traction to draw the PEG tube into position. We followed the mushroom tip down with the scope until it abutted the gastric mucosa. Appropriate adapters were applied. Sterile dressings were applied. After removing all possible air the scope was removed. The patient tolerated the procedure well and was returned to intensive care in stable condition.
[2018-04-23] MEDS: SODIUM CHLORIDE 0.9% 1,000 ML IV SCH (14:21)
--- NOTE | 2018-04-23 16:23 | PN ---
PROGRESS NOTE Patient is seen for followup of metabolic alkalosis. She remains on the vent. The patient is scheduled for trach and PEG later on today. She is maintained on normal saline at 75 mL/hour. On examination, patient remains on the vent. Blood pressure this morning was 123/63, heart rate of 84 per minute. Patient is afebrile. EXAMINATION OF THE HEART: S1, S2. EXAMINATION OF LUNGS: Bilateral breath sounds are heard. ABDOMEN: Soft, non-tender. Examination of lower extremities shows trace edema bilaterally. 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 Labs show sodium 143, potassium 4.7, chloride 94, BUN 28, serum creatinine 0.4, hemoglobin 9.7 g/dL. ASSESSMENT: 1. Hyponatremia which was mainly hypovolemic, currently improved. Serum sodium is up to 143. I will continue with the normal saline for now, as this will also help with the metabolic alkalosis. 2. Significant metabolic alkalosis associated with severe chronic obstructive pulmonary disease, carbon dioxide retention, fairly stable. Currently on the vent. 3. Pneumonia, community-acquired, maintained on empiric antibiotics. PLAN: Continue with normal saline for now. MMODL / IJN: [id number] /
[2018-04-23 17:33] LABS: Glucose,Whole Blood 100 mg/dL (75-99)
--- NOTE | 2018-04-23 17:36 | P.PN ---
Subjective 57-year-old female with history of severe end-stage COPD O2 dependent ( FEV1 is in the range of 26% at best, FEV1/FVC is 41%) came in with a few days' history of increased shortness of breath, cough, cough is productive with whitish phlegm , some wheezing, no chest pain, no fever, no chills, no hemoptysis. Patient normally sees Dr. Henderson for her COPD, and her primary care physician is Dr. Golden. Patient was just discharged about 6 days ago from [facility] when she was admitted initially with a similar episode of COPD exacerbation and tracheobronchitis. Patient had previous screening for alpha- 1 antitrypsin deficiency, and she was told it was negative by Dr. Henderson. Chest x-ray in the ER showed no evidence of active disease, there was hyperinflation consistent with COPD. She is being treated for COPD exacerbation currently. On 04/19/2018 - patient has been lying in bed and appears to be in mild respiratory distress. Patient is currently on 5 L of oxygen via nasal cannula saturating barely at 90%. As per the nursing staff report patient has been like this since morning and she has not been getting her breathing treatments . She is also on IV Solu-Medrol and antibiotics in the form of Zosyn. 04/20/2018- last night patient's respiration became labored so patient was placed on BiPAP for a few minutes but could not tolerate it and her clinical status deteriorated and rapid response team was called. She was then intubated around 6:30 PM last night. She was on Zosyn, vancomycin and doxycycline have been added to her antibiotics. Sputum cultures and blood cultures were also ordered. Patient dropped her blood pressure for which she was started on Levophed.She is currently on a ventilator. On 04/21/18 - patient remained sedated and is being mechanically ventilated. She is off of Levophed. No acute overnight events reported by nursing staff. 04/22/2018 Patient failed weaning trial today. 04/23/2018 no significant prominent compared to yesterday regarding her respiratory status is up with pulmonology dictation for further details patient appears to have failed a weaning trial event today. Objective - Vital Signs Vital signs: Vital Signs Temp 98.4 F 04/23/18 16:00 Pulse 81 04/23/18 16:15 Resp 14 04/23/18 16:00 BP 121/73 04/23/18 16:00 Pulse Ox 94 L 04/23/18 16:00 Intake & Output 04/22/18 04/23/18 04/23/18 18:59 06:59 18:59 Intake Total 2144.787 4408.019 4359.0 Output Total 412 542 412 Balance 4365.517 8837.368 613.0 Weight 63.4 kg 63.4 kg Intake: IV 975.0 1337.5 1025.0 Lactated Ringers 1,000 ml 180 @ 20 mls/hr IV .Q24H [facility] Rx#:[id number] Piperacillin-Tazobactam 3 75.0 62.5 50.0 .375 gm In Dextrose/Water 1 50ml.bag @ 12.5 mls/hr IVPB Q8HR [facility] Rx#: [id number] Sodium Chloride 0.9% 1, 900 900 495 000 ml @ 75 mls/hr IV . [id number] [facility] Rx#:[id number] Vancomycin 1,000 mg In 375 Sodium Chloride 0.9% 250 ml @ 125 mls/hr IVPB Q12H [facility] Rx#:[id number] Intake, IV Titration 679.787 171.868 Amount Propofol 1,000 mg In 179.787 171.868 Empty Bag 1 bag @ Titrate IV .Q0M [facility] Rx#: [id number] Vancomycin 1,000 mg In 500 Sodium Chloride 0.9% 250 ml @ 125 mls/hr IVPB Q8H [facility] Rx#:[id number] Tube Feeding 400 180 Other 90 30 Output: Urine 412 542 410 Estimated Blood Loss 2 Other: Voiding Method Indwelling Catheter Indwelling Catheter Indwelling Catheter ABP, PAP, CO, CI - Last Documented Arterial Blood Pressure 118/64 - Exam Physical Exam: Revealed a 57-year-old female in mild respiratory distress. Head: Atraumatic, normocephalic. ET tube and orogastric tube in place HEENT:Neck is supple.No neck masses. No thyromegaly. Chest: Extremely diminished breath sound bilaterally, few wheezes bilaterally Cardiac Exam: Normal S1 and S2, no S3 gallop, no murmur. Abdomen: Soft, nontender, no megaly, no rebound, no guarding, normal bowel sounds. Extremities: No clubbing, no edema, no cyanosis Neurological Exam: Sedated. - Labs CBC & Chem 7: 04/23/18 04:50 04/23/18 04:50 Labs: Abnormal Lab Results - Last 24 Hours (Table) 04/22/18 04/23/18 04/23/18 Range/Units 17:52 00:36 04:50 RBC 3.30 L (3.80-5.40) m/uL Hgb 9.7 L (11.4-16.0) gm/dL Hct 31.5 L (34.0-46.0) % MCHC 30.8 L (31.0-37.0) g/dL Neutrophils # 9.9 H (1.3-7.7) k/uL Lymphocytes # 0.2 L (1.0-4.8) k/uL ABG pCO2 (35-45) mmHg ABG HCO3 (21-25) mmol/L ABG Total CO2 (19-24) mmol/L ABG O2 Saturation (94-97) % Chloride (98-107) mmol/L Carbon Dioxide (22-30) mmol/L BUN (7-17) mg/dL Creatinine (0.52-1.04) mg/dL Glucose (74-99) mg/dL POC Glucose (mg/dL) 140 H 160 H (75-99) mg/dL 04/23/18 04/23/18 04/23/18 Range/Units 04:50 05:24 12:05 RBC (3.80-5.40) m/uL Hgb (11.4-16.0) gm/dL Hct (34.0-46.0) % MCHC (31.0-37.0) g/dL Neutrophils # (1.3-7.7) k/uL Lymphocytes # (1.0-4.8) k/uL ABG pCO2 87 H* (35-45) mmHg ABG HCO3 48 H* (21-25) mmol/L ABG Total CO2 51 H (19-24) mmol/L ABG O2 Saturation 98.1 H (94-97) % Chloride 94 L (98-107) mmol/L Carbon Dioxide 49 H* (22-30) mmol/L BUN 28 H (7-17) mg/dL Creatinine 0.40 L (0.52-1.04) mg/dL Glucose 124 H (74-99) mg/dL POC Glucose (mg/dL) 111 H (75-99) mg/dL 04/23/18 Range/Units 17:31 RBC (3.80-5.40) m/uL Hgb (11.4-16.0) gm/dL Hct (34.0-46.0) % MCHC (31.0-37.0) g/dL Neutrophils # (1.3-7.7) k/uL Lymphocytes # (1.0-4.8) k/uL ABG pCO2 (35-45) mmHg ABG HCO3 (21-25) mmol/L ABG Total CO2 (19-24) mmol/L ABG O2 Saturation (94-97) % Chloride (98-107) mmol/L Carbon Dioxide (22-30) mmol/L BUN (7-17) mg/dL Creatinine (0.52-1.04) mg/dL Glucose (74-99) mg/dL POC Glucose (mg/dL) 100 H (75-99) mg/dL Microbiology - Last 24 Hours (Table) 04/17/18 09:00 Blood Culture - Final Blood No Growth after 144 hours 04/17/18 16:07 Blood Culture - Preliminary Blood No Growth after 120 hours 04/17/18 16:15 Blood Culture - Preliminary Blood No Growth after 120 hours Assessment and Plan Plan: Acute hypoxic/hypercapnic respiratory failure - on mechanical ventilation Acute COPD exacerbation Hypotension - secondary to Sepsis- off of pressors currently Hyponatremia History of pneumothorax and wedge resection in the past History of bilateral mastectomy with breast reconstructive surgery Nicotine dependence Moderate protein calorie malnutrition Roseline albicans in the sputum PLAN: Continue with mechanical ventilation and IV steroids. Antibiotics in the form of Zosyn, vancomycin and doxycycline. Appreciate pulmonary recommendations - Dr. Henderson has evaluated the patient this morning and she is very well known to him. She would be a very difficult patient to extubate and may need tracheostomy and PEG tube in the near future. Overall prognosis is extremely poor critical care physician did the discuss her overall goals of care with the family.
[2018-04-23] MEDS: DEXTROSE 5% IN WATER 1,000 ML IV SCH (18:07)
[2018-04-23 20:39] LABS: Glucose,Whole Blood 96 mg/dL (75-99)
[2018-04-24] MEDS: HYDROmorphone 0.5 MG/0.5 ML SYRINGE IVP PRN ×5 (00:02→21:53)
[2018-04-24] MEDS: PIPERACILLIN-TAZOBACTAM 3.375 GM in DEXTROSE/WATER 1 50ML.BAG IVPB SCH ×3 (00:06→16:34)
[2018-04-24] MEDS: methylPREDNISolone SOD SUCCI 125 MG/2 ML VIAL IV SCH ×2 (00:07→06:48)
[2018-04-24] MEDS: INSULIN ASPART 100 UNIT/ML 1 ML 10 ML VIAL SQ SCH ×4 (00:16→18:43)
[2018-04-24 00:17] LABS: Glucose,Whole Blood 100 mg/dL (75-99)
[2018-04-24] MEDS: VANCOMYCIN 1,000 MG in SODIUM CHLORIDE 0.9% 250 ML IVPB SCH ×2 (01:45→08:17)
[2018-04-24] MEDS: IPRATROPIUM-ALBUTEROL 3 ML NEB INHALATION SCH ×6 (03:21→23:24)
[2018-04-24 03:37] LABS: Glucose,Whole Blood 158 mg/dL (75-99)
[2018-04-24 04:56] LABS: ABG Base Excess 23.2 mmol/L; ABG Oxygen Saturation 94.9 % (94-97); ABG PH 7.33 (7.35-7.45); ABG PO2 77 mmHg (83-108); ABG TCO2 52 mmol/L (19-24)
[2018-04-24 05:06] LABS: Basophils % (A) 0 %; Eosinophils # (A) 0.1 k/uL (0-0.7); Eosinophils % (A) 0 %; HCT 35.5 % (34.0-46.0); HGB 10.8 gm/dL (11.4-16.0); Hypochromasia Moderate; Lymphocytes # (A) 0.4 k/uL (1.0-4.8); Lymphocytes % (A) 2 %; MCHC 30.4 g/dL (31.0-37.0); MCV 95.6 fL (80.0-100.0); Mean Platelet Volume 7.3; Monocytes # (A) 0.3 k/uL (0-1.0); Monocytes % (A) 2 %; Neutrophils # (A) 16.6 k/uL (1.3-7.7); Neutrophils % (A) 96 %; Platelet Count 328 k/uL (150-450); RBC 3.72 m/uL (3.80-5.40); RDW 13.2 % (11.5-15.5); WBC 17.4 k/uL (3.8-10.6)
[2018-04-24 05:18] LABS: Blood Urea Nitrogen 29 mg/dL (7-17); Calcium 8.5 mg/dL (8.4-10.2); Chloride 90 mmol/L (98-107); Glucose 152 mg/dL (74-99); Phosphorus 3.7 mg/dL (2.5-4.5); Potassium 4.8 mmol/L (3.5-5.1); Sodium 141 mmol/L (137-145)
[2018-04-24 05:25] LABS: Anion Gap 5 mmol/L
[2018-04-24 05:36] LABS: Carbon Dioxide 46 mmol/L (22-30)
[2018-04-24 05:39] LABS: ABG HCO3 49 mmol/L (21-25); ABG PCO2 92 mmHg (35-45)
--- NOTE | 2018-04-24 07:12 | XR ---
EXAMINATION TYPE: XR chest 1V DATE OF EXAM: 04/24/2018 CLINICAL HISTORY: Difficulty breathing progress study. TECHNIQUE: Single AP portable semiupright view of the chest is obtained. COMPARISON: Chest x-ray from one day earlier and older studies. CT chest April 19, 2018. FINDINGS: There is interval removal of endotracheal and orogastric tubes and placement of tracheosto my tube. Cardiac silhouette size is stable and within normal limits. There is background of chronic emphysemat ous change with scattered parenchymal scarring and fibrosis seen bilaterally. There is persistent rig ht basilar atelectasis and/or infiltrate. There is new right infrahilar opacity. Right apical pleural thickening remains present. Osseous structures are intact. IMPRESSION: New tracheostomy tube. Stable right basilar atelectasis and/or infiltrate. Background chr onic emphysematous change with new right infrahilar atelectasis and/or infiltrate noted.
[2018-04-24] MEDS: BUDESONIDE 1 MG/2 ML NEBU INHALATION SCH ×2 (07:49→19:33)
[2018-04-24] MEDS: FORMOTEROL FUMARATE 20 MCG/2 ML NEBU INHALATION SCH ×2 (07:49→19:33)
[2018-04-24] MEDS ORDERED: VANCOMYCIN TROUGH DUE 1 EACH MISC MISCELLANE ONE (08:00)
[2018-04-24] MEDS: CHLORHEXIDINE GLUCONATE 15 ML CUP MUCOUS MEM SCH ×2 (08:17→21:52)
[2018-04-24] MEDS: PANTOPRAZOLE 40 MG/10 ML VIAL IV SCH (08:17)
[2018-04-24] MEDS: ENOXAPARIN 40 MG/0.4 ML SYRINGE SQ SCH (08:18)
[2018-04-24] MEDS ORDERED: FUROSEMIDE 10 MG/ML 4 ML VIAL IV STA (09:27)
--- NOTE | 2018-04-24 09:51 | P.PN ---
Subjective Progress Note Date: 04/24/18 Principal diagnosis: Hypoxemic respiratory failure, COPD Progress note dated 04/21/2018 This is a 57-year-old female well-known to me. She was admitted on April 17 intubated on April 19. Currently on the volume assist control mode with a rate of 14 tidal volume 350 FiO2 35% PEEP of 6. Arterial blood gases show a PaO2 of 72 and a PaCO2 of 81 and a pH is 7.36. She is on a saline IV at 75 mL an hour propofol at 50 mics per kilogram per minute and norepinephrine is on hold. No tube feeds have been started as yet. She's had an oral gastric tube in place and an endotracheal tube in place. I've asked the nurses to talk to nutrition about starting tube feeds. In addition to hypoxemic hypercapnic respiratory failure, she has a history of spontaneous pneumothorax in 2006 with previous wedge resection and mechanical pleurodesis breast cancer 2004 with bilateral breast reconstruction and sepsis with septic shock and hypotension. She is also thought to possibly have community-acquired bilateral pneumonia. I have talked to this patient in the past about possible lung transplantation but she wasn't very excited. She was anemic excited to have a evaluation. Microbiology is as far all negative. White count is 15.7 hemoglobin 10.7 hematocrit 34.8 and platelet count 234,000. In addition, sodium 138 potassium 5.1 chloride 91 CO2 45 anion gap to be running creatinine 17 and 0.43. Chest x- rays mostly consistent with hyperinflation. Computed tomography scan of the chest shows diffuse peribronchial cuffing with tree-in-bud opacities as well as diffuse nodular opacities. Progress note dated 04/22/2018 57-year-old female well-known to me. She has a history of severe COPD. She was admitted on April 17 intubated on April 19. She actually has made no progress towards extubation. I've had a series talk with the family yesterday. She likely will end up with a trach and PEG. Currently, we did do a daily eruption of sedation with a spontaneous breathing trial but unfortunately she did very poorly. Her rapid shallow breathing index was well above 105. Tidal volumes are low. Respiratory rates were very high. Her saturations dropped into the 70s. Hence was placed back on the ventilator at the previous settings. Currently, she is on the volume assist control modality with a rate of 14 tidal volume 350 FiO2 35% and a PEEP of 6. Arterial blood gases show a PaO2 of 70 a PaCO2 of 77 and a normal pH is 7.42. She is on propofol at 50 mics per kilogram per minute is saline IV at 75 mL an hour and vital high protein at 10 with a goal of 41 mL an hour. Chest x-ray shows only changes of COPD. I am and have the respiratory therapist pushed endotracheal tube down 1 cm. Progress note dated 04/23/2018 57-year-old female well-known to me. She has a history of severe COPD with an FEV1 that's below 30%. Currently still on the ventilator. She is on the volume assist control mode with a rate of 14, tidal volume 350, FiO2 40%, and PEEP of 6. Arterial blood gases show a PaO2 of 96 a PaCO2 of 87 and a pH of 7.35. She is scheduled for a tracheostomy and PEG tube placement today at 1 PM. Chest x-ray shows a minimal infiltrate in the right lower lobe. She is on a saline IV at 55 mL an hour lactated Ringer's at 20 mL an hour. Tube feedings are off in anticipation of her surgery today. She really has not made any progress towards weaning and extubation. I have had discussions with the family. They understand her poor prognosis. She will have a daily interuption of sedation today. Progress note dated 04/24/2018 57-year-old female well-known to me. She has a history of severe COPD with an FEV1 that is about 23% of predicted. Yesterday, she's had a tracheostomy and PEG tube performed by one of the thoracic surgeons. The patient has been on the volume assist control mode rate of 14 tidal volume 350 FiO2 40% PEEP of 6. Arterial blood gases show a PaO2 of 77 a PaCO2 of 92 and a pH of 7.33. The patient will get a spontaneous breathing trial today. We'll place her on PSV 8 CPAP of 5. She's not on any propofol at this time. The patient will get some additional Lasix today 40 mg IV push. She's on a D5W IV at 60 mL an hour. Tube feeds are currently on hold given the recent PEG tube placement. She is much more awake and alert today. She looks well. Overall prognosis O is very guarded. Chest x-ray showed appears to show a minimal infiltrate in the right lower lobe. White count is 17.4 hemoglobin 10.8 hematocrit 35.5 and platelet count 328,000. Sodium 141 potassium 4.8 chloride 90 CO2 46 BUN and creatinine were 29 and 0.4. Objective - Vital Signs Vital signs: Vital Signs Temp 98.4 F 04/24/18 08:00 Pulse 86 04/24/18 09:00 Resp 14 04/24/18 09:00 BP 130/75 04/24/18 08:00 Pulse Ox 96 04/24/18 09:00 Intake & Output 04/23/18 04/24/18 04/24/18 18:59 06:59 18:59 Intake Total 9046.651 0939.673 480 Output Total 547 550 170 Balance 1045.411 598.673 310 Weight 63.4 kg 61.5 kg Intake: IV 1472.5 1145.0 480 Dextrose 5% in Water 1, 0 720 180 000 ml @ 60 mls/hr IV . [id number] [facility] Rx#:[id number] Lactated Ringers 1,000 ml 240 @ 20 mls/hr IV .Q24H [facility] Rx#:[id number] Piperacillin-Tazobactam 3 87.5 50.0 50 .375 gm In Dextrose/Water 1 50ml.bag @ 12.5 mls/hr IVPB Q8HR [facility] Rx#: [id number] Sodium Chloride 0.9% 1, 720 000 ml @ 75 mls/hr IV . [id number] [facility] Rx#:[id number] Vancomycin 1,000 mg In 125 375 250 Sodium Chloride 0.9% 250 ml @ 125 mls/hr IVPB Q8H [facility] Rx#:[id number] Intake, IV Titration 119.911 3.673 Amount Propofol 1,000 mg In 119.911 3.673 Empty Bag 1 bag @ Titrate IV .Q0M [facility] Rx#: [id number] Output: Urine 545 550 170 Estimated Blood Loss 2 Other: Voiding Method Indwelling Catheter Indwelling Catheter ABP, PAP, CO, CI - Last Documented Arterial Blood Pressure 131/72 - Exam No acute distress, the patient is heavily sedated. HEENT examination is grossly unremarkable. Mucous membranes are moist. No oral lesions. The patient has a midline tracheostomy tube. Neck supple. Full range of motion. No adenopathy thyromegaly or neck vein distention. Cardiovascular examination reveals regular rhythm rate. S1-S2 normal. No S3 or S4. No discernible murmur noted. Lungs reveal clear breath sounds. Her sounds are equal bilaterally. A few scattered rhonchi noted bilaterally. Abdomen soft bowel sounds are heard. No masses or tenderness. Fresh PEG tube is noted. Extremities are intact. No cyanosis clubbing or edema. Skin is without rash or lesion. Neurologic examination could not be adequately assessed. - Labs CBC & Chem 7: 04/24/18 05:00 04/24/18 05:00 Labs: Abnormal Lab Results - Last 24 Hours (Table) 04/23/18 04/23/18 04/24/18 Range/Units 12:05 17:31 00:15 WBC (3.8-10.6) k/uL RBC (3.80-5.40) m/uL Hgb (11.4-16.0) gm/dL MCHC (31.0-37.0) g/dL Neutrophils # (1.3-7.7) k/uL Lymphocytes # (1.0-4.8) k/uL ABG pH (7.35-7.45) ABG pCO2 (35-45) mmHg ABG pO2 (83-108) mmHg ABG HCO3 (21-25) mmol/L ABG Total CO2 (19-24) mmol/L Chloride (98-107) mmol/L Carbon Dioxide (22-30) mmol/L BUN (7-17) mg/dL Creatinine (0.52-1.04) mg/dL Glucose (74-99) mg/dL POC Glucose (mg/dL) 111 H 100 H 100 H (75-99) mg/dL 04/24/18 04/24/18 04/24/18 Range/Units 03:36 04:40 05:00 WBC 17.4 H (3.8-10.6) k/uL RBC 3.72 L (3.80-5.40) m/uL Hgb 10.8 L (11.4-16.0) gm/dL MCHC 30.4 L (31.0-37.0) g/dL Neutrophils # 16.6 H (1.3-7.7) k/uL Lymphocytes # 0.4 L (1.0-4.8) k/uL ABG pH 7.33 L (7.35-7.45) ABG pCO2 92 H* (35-45) mmHg ABG pO2 77 L (83-108) mmHg ABG HCO3 49 H* (21-25) mmol/L ABG Total CO2 52 H (19-24) mmol/L Chloride (98-107) mmol/L Carbon Dioxide (22-30) mmol/L BUN (7-17) mg/dL Creatinine (0.52-1.04) mg/dL Glucose (74-99) mg/dL POC Glucose (mg/dL) 158 H (75-99) mg/dL 04/24/18 Range/Units 05:00 WBC (3.8-10.6) k/uL RBC (3.80-5.40) m/uL Hgb (11.4-16.0) gm/dL MCHC (31.0-37.0) g/dL Neutrophils # (1.3-7.7) k/uL Lymphocytes # (1.0-4.8) k/uL ABG pH (7.35-7.45) ABG pCO2 (35-45) mmHg ABG pO2 (83-108) mmHg ABG HCO3 (21-25) mmol/L ABG Total CO2 (19-24) mmol/L Chloride 90 L (98-107) mmol/L Carbon Dioxide 46 H* (22-30) mmol/L BUN 29 H (7-17) mg/dL Creatinine 0.40 L (0.52-1.04) mg/dL Glucose 152 H (74-99) mg/dL POC Glucose (mg/dL) (75-99) mg/dL Microbiology - Last 24 Hours (Table) 04/17/18 16:07 Blood Culture - Final Blood No Growth after 144 hours 04/17/18 16:15 Blood Culture - Final Blood No Growth after 144 hours 04/17/18 09:00 Blood Culture - Final Blood No Growth after 144 hours Assessment and Plan Assessment: Assessment Hypoxemic and Hypercapnic Respiratory Failure Secondary to His Very Severe COPD , Status Post Intubation and Mechanical Ventilation, with attempts at spontaneous breathing trial following a daily eruption of sedation, which was unsuccessful. Postop day #1, status post tracheostomy and PEG tube placement History of Severe Emphysema, stage IV, with an FEV1 that is less than 30% of predicted. Possible Community-Acquired Pneumonia, right lower lobe. History of Spontaneous Pneumothorax in 2006 with Apical Bleb Resection and Mechanical Pleurodesis Breast Cancer, 2005, Status Post Bilateral Breast Reconstruction Hypotension, Resolved, Secondary to Sepsis Anticipated tracheostomy and PEG tube placement on April 23. Plan: Plan dated 04/21/2018 The patient is currently on the ventilator. She is currently being sedated sedated with propofol. The norepinephrine has been turned off. We will start feedings today. Gases are reasonable. Prognosis is poor. The poor lady may end up with a tracheostomy and PEG tube. I will deftly have discussions with the family. I did offer patient the previous evaluation for lung transplantation and every 4 but the patient refuses. This is her first episode of acute and severe respiratory failure. Plan dated 04/22/2018 The patient was given a daily eruption of sedation with a spontaneous breathing trial. As mentioned above, she felt very miserably. White count is 11.6 and 1110.3 hematocrit 33.1 and platelet count is normal. Sodium is 139 potassium 4.1 chloride is 89 CO2 48 year and crackles were 25 and 0.40. The patient's currently receiving all appropriate medications including nebulizer treatments antibiotics and steroids. Likely she will need a tracheostomy and PEG tube. We 'll ask one of her thoracic surgeons to contemplate that. Additional recommendations and suggestions are forthcoming. Prognosis is very guarded. Medications labs and x-rays all reviewed. Critical care time 38 minutes. Plan dated 04/23/2018 The patient will get a daily interruption of sedation. No attempts at weaning today. Vent settings and blood gases are reasonable. Tracheostomy and PEG tube placement today at 1 PM. Chest x-ray shows a mild right lower lobe infiltrate. Medications labs and x-rays are reviewed. I will have further discussions with the family. Prognosis is guarded. Additional recommendations and suggestions are forthcoming. White count 10.4, hemoglobin 9.7, hematocrit 31.5, and platelet count 224,000. Sodium potassium are normal. Chloride is 94 and CO2 49. BUN and creatinine were 28 and 0.4. Thus far, microbiology all negative. Critical care time 36 minutes Plan dated 04/24/2018 The patient is postop day #1 status post tracheostomy and PEG tube placement. She's not on any sedation at the current time. She does receive some when necessary narcotic. She seems much more awake and alert. Arterial blood gases and that settings were noted. The patient will be given a trial of PSV 8 CPAP of 5. We'll make sure that she does not fatigue. Likely she'll end up back on the ventilator and nighttime. Additional recommendations and suggestions are forthcoming. Labs x-rays a medications are all reviewed. Critical care time 32 minutes Time with Patient: Greater than 30
[2018-04-24] MEDS: DEXTROSE 5% IN WATER 1,000 ML IV SCH (10:49)
[2018-04-24 11:49] LABS: Glucose,Whole Blood 122 mg/dL (75-99)
[2018-04-24] MEDS: CLEVIDIPINE BUTYRATE 25 MG in EMPTY BAG 1 BAG IV SCH (13:49)
[2018-04-24] MEDS: methylPREDNISolone SOD SUCCI 40 MG/ML 1 ML VIAL IV SCH ×2 (13:50→18:44)
--- NOTE | 2018-04-24 15:49 | P.PN ---
Subjective 57-year-old female with history of severe end-stage COPD O2 dependent ( FEV1 is in the range of 26% at best, FEV1/FVC is 41%) came in with a few days' history of increased shortness of breath, cough, cough is productive with whitish phlegm , some wheezing, no chest pain, no fever, no chills, no hemoptysis. Patient normally sees Dr. Henderson for her COPD, and her primary care physician is Dr. Golden. Patient was just discharged about 6 days ago from [facility] when she was admitted initially with a similar episode of COPD exacerbation and tracheobronchitis. Patient had previous screening for alpha- 1 antitrypsin deficiency, and she was told it was negative by Dr. Henderson. Chest x-ray in the ER showed no evidence of active disease, there was hyperinflation consistent with COPD. She is being treated for COPD exacerbation currently. On 04/19/2018 - patient has been lying in bed and appears to be in mild respiratory distress. Patient is currently on 5 L of oxygen via nasal cannula saturating barely at 90%. As per the nursing staff report patient has been like this since morning and she has not been getting her breathing treatments . She is also on IV Solu-Medrol and antibiotics in the form of Zosyn. 04/20/2018- last night patient's respiration became labored so patient was placed on BiPAP for a few minutes but could not tolerate it and her clinical status deteriorated and rapid response team was called. She was then intubated around 6:30 PM last night. She was on Zosyn, vancomycin and doxycycline have been added to her antibiotics. Sputum cultures and blood cultures were also ordered. Patient dropped her blood pressure for which she was started on Levophed.She is currently on a ventilator. On 04/21/18 - patient remained sedated and is being mechanically ventilated. She is off of Levophed. No acute overnight events reported by nursing staff. 04/22/2018 Patient failed weaning trial today. 04/23/2018 no significant prominent compared to yesterday regarding her respiratory status is up with pulmonology dictation for further details patient appears to have failed a weaning trial event today. 04/24/2018 Patient underwent tracheostomy and PEG tube placement. Objective - Vital Signs Vital signs: Vital Signs Temp 98.4 F 04/24/18 12:00 Pulse 99 06/14/18 15:29 Resp 14 04/24/18 15:00 BP 133/71 04/24/18 15:00 Pulse Ox 97 04/24/18 15:00 Intake & Output 04/23/18 04/24/18 04/24/18 18:59 06:59 18:59 Intake Total 2510.170 7285.673 870 Output Total 493 203 3163 Balance 1045.411 598.673 -2060 Weight 63.4 kg 61.5 kg Intake: IV 1472.5 1145.0 840 Dextrose 5% in Water 1, 0 720 540 000 ml @ 60 mls/hr IV . [id number] [facility] Rx#:[id number] Lactated Ringers 1,000 ml 240 @ 20 mls/hr IV .Q24H [facility] Rx#:[id number] Piperacillin-Tazobactam 3 87.5 50.0 50 .375 gm In Dextrose/Water 1 50ml.bag @ 12.5 mls/hr IVPB Q8HR [facility] Rx#: [id number] Sodium Chloride 0.9% 1, 720 000 ml @ 75 mls/hr IV . [id number] [facility] Rx#:[id number] Vancomycin 1,000 mg In 125 375 250 Sodium Chloride 0.9% 250 ml @ 125 mls/hr IVPB Q8H [facility] Rx#:[id number] Intake, IV Titration 119.911 3.673 Amount Propofol 1,000 mg In 119.911 3.673 Empty Bag 1 bag @ Titrate IV .Q0M [facility] Rx#: [id number] Tube Feeding 30 Output: Urine 675 601 4314 Estimated Blood Loss 2 Other: Voiding Method Indwelling Catheter Indwelling Catheter Indwelling Catheter ABP, PAP, CO, CI - Last Documented Arterial Blood Pressure 143/70 - Exam Physical Exam: Patient is on ventilatory support intake alert off pressor support has a tracheostomy and PEG tube placement Head: Atraumatic, normocephalic. Patient had a tracheostomy today HEENT:Neck is supple.No neck masses. No thyromegaly. Chest: Extremely diminished breath sound bilaterally, few wheezes bilaterally Cardiac Exam: Normal S1 and S2, no S3 gallop, no murmur. Abdomen: Soft, nontender, no megaly, no rebound, no guarding, normal bowel sounds. PEG tube in place patient will be initiated on PEG tube feedings today Extremities: No clubbing, no edema, no cyanosis Neurological Exam: Awake and alert and does not appear to have any focal deficits - Labs CBC & Chem 7: 04/24/18 05:00 04/24/18 05:00 Labs: Abnormal Lab Results - Last 24 Hours (Table) 04/23/18 04/24/18 04/24/18 Range/Units 17:31 00:15 03:36 WBC (3.8-10.6) k/uL RBC (3.80-5.40) m/uL Hgb (11.4-16.0) gm/dL MCHC (31.0-37.0) g/dL Neutrophils # (1.3-7.7) k/uL Lymphocytes # (1.0-4.8) k/uL ABG pH (7.35-7.45) ABG pCO2 (35-45) mmHg ABG pO2 (83-108) mmHg ABG HCO3 (21-25) mmol/L ABG Total CO2 (19-24) mmol/L Chloride (98-107) mmol/L Carbon Dioxide (22-30) mmol/L BUN (7-17) mg/dL Creatinine (0.52-1.04) mg/dL Glucose (74-99) mg/dL POC Glucose (mg/dL) 100 H 100 H 158 H (75-99) mg/dL 04/24/18 04/24/18 04/24/18 Range/Units 04:40 05:00 05:00 WBC 17.4 H (3.8-10.6) k/uL RBC 3.72 L (3.80-5.40) m/uL Hgb 10.8 L (11.4-16.0) gm/dL MCHC 30.4 L (31.0-37.0) g/dL Neutrophils # 16.6 H (1.3-7.7) k/uL Lymphocytes # 0.4 L (1.0-4.8) k/uL ABG pH 7.33 L (7.35-7.45) ABG pCO2 92 H* (35-45) mmHg ABG pO2 77 L (83-108) mmHg ABG HCO3 49 H* (21-25) mmol/L ABG Total CO2 52 H (19-24) mmol/L Chloride 90 L (98-107) mmol/L Carbon Dioxide 46 H* (22-30) mmol/L BUN 29 H (7-17) mg/dL Creatinine 0.40 L (0.52-1.04) mg/dL Glucose 152 H (74-99) mg/dL POC Glucose (mg/dL) (75-99) mg/dL 04/24/18 Range/Units 11:48 WBC (3.8-10.6) k/uL RBC (3.80-5.40) m/uL Hgb (11.4-16.0) gm/dL MCHC (31.0-37.0) g/dL Neutrophils # (1.3-7.7) k/uL Lymphocytes # (1.0-4.8) k/uL ABG pH (7.35-7.45) ABG pCO2 (35-45) mmHg ABG pO2 (83-108) mmHg ABG HCO3 (21-25) mmol/L ABG Total CO2 (19-24) mmol/L Chloride (98-107) mmol/L Carbon Dioxide (22-30) mmol/L BUN (7-17) mg/dL Creatinine (0.52-1.04) mg/dL Glucose (74-99) mg/dL POC Glucose (mg/dL) 122 H (75-99) mg/dL Microbiology - Last 24 Hours (Table) 04/17/18 16:07 Blood Culture - Final Blood No Growth after 144 hours 04/17/18 16:15 Blood Culture - Final Blood No Growth after 144 hours Assessment and Plan Plan: Acute hypoxic/hypercapnic respiratory failure - on mechanical ventilation, patient underwent tracheostomy and PEG tube placement Acute COPD exacerbation Hypotension - secondary to Sepsis- off of pressors currently Hyponatremia History of pneumothorax and wedge resection in the past History of bilateral mastectomy with breast reconstructive surgery Nicotine dependence Moderate protein calorie malnutrition Roseline albicans in the sputum PLAN: Continue with mechanical ventilation and IV steroids. Antibiotics in the form of Zosyn, vancomycin was discontinued. So far cultures are negative
[2018-04-24 18:42] LABS: Glucose,Whole Blood 141 mg/dL (75-99)
[2018-04-24] MEDS: SENNOSIDES 8.6 MG TAB PO SCH (22:00)
--- NOTE | 2018-04-24 23:44 | PN ---
PROGRESS NOTE DATE OF SERVICE: 04/24/2018. REASON FOR FOLLOWUP VISIT: Pneumonia. INTERVAL HISTORY: The patient is afebrile. The patient is status post trach and PEG yesterday. The patient was awake and alert and now answers some simple questions by nodding her head. Patient is currently hemodynamically stable, not on any pressor support. EXAMINATION: Vital signs are stable with T-max of 98, blood pressure 134/76, pulse 94, temperature 98.6. He is 95% on trach. General description is a middle-aged female lying in bed in no distress. RESPIRATORY SYSTEM: Unlabored breathing. Clear to auscultation anteriorly. HEART: S1, S2. Regular rate and rhythm. ABDOMEN: Soft. No tenderness. EXTREMITIES: No edema of feet. LABS: White count slightly jumped up to 17,428. DIAGNOSTIC IMPRESSION AND PLAN: Patient with acute respiratory failure. Multifactorial. The patient did have chronic obstructive pulmonary disease acute exacerbation, possible pneumonia. Currently on Zosyn and vancomycin has been discontinued, status post trach and percutaneous endoscopic gastrostomy with slight jump in the white count that we will monitor closely. Continue supportive care. MMODL / IJN: [id number] /
[2018-04-25] MEDS: methylPREDNISolone SOD SUCCI 40 MG/ML 1 ML VIAL IV SCH ×4 (00:02→18:42)
[2018-04-25] MEDS: PIPERACILLIN-TAZOBACTAM 3.375 GM in DEXTROSE/WATER 1 50ML.BAG IVPB SCH ×3 (00:04→16:45)
[2018-04-25 00:13] LABS: Glucose,Whole Blood 136 mg/dL (75-99)
[2018-04-25] MEDS: INSULIN ASPART 100 UNIT/ML 1 ML 10 ML VIAL SQ SCH ×4 (00:15→18:42)
[2018-04-25] MEDS: HYDROmorphone 0.5 MG/0.5 ML SYRINGE IVP PRN ×4 (00:59→21:53)
[2018-04-25] MEDS: IPRATROPIUM-ALBUTEROL 3 ML NEB INHALATION SCH ×6 (03:04→23:59)
[2018-04-25 04:27] LABS: ABG Oxygen Saturation 96.6 % (94-97); ABG PH 7.42 (7.35-7.45); ABG PO2 80 mmHg (83-108); ABG TCO2 59 mmol/L (19-24)
[2018-04-25 04:42] LABS: HCT 34.5 % (34.0-46.0); HGB 10.7 gm/dL (11.4-16.0); Hypochromasia Slight; MCH 28.8 pg (25.0-35.0); MCHC 31.1 g/dL (31.0-37.0); MCV 92.8 fL (80.0-100.0); Mean Platelet Volume 7.1; Platelet Count 284 k/uL (150-450); RBC 3.71 m/uL (3.80-5.40); RDW 12.9 % (11.5-15.5); WBC 12.9 k/uL (3.8-10.6)
[2018-04-25 04:51] LABS: Blood Urea Nitrogen 21 mg/dL (7-17); Calcium 8.5 mg/dL (8.4-10.2); Chloride 82 mmol/L (98-107); Glucose 163 mg/dL (74-99); Magnesium 1.9 mg/dL (1.6-2.3); Phosphorus 3.3 mg/dL (2.5-4.5); Potassium 4.4 mmol/L (3.5-5.1); Sodium 137 mmol/L (137-145)
[2018-04-25 04:57] LABS: Anion Gap 1 mmol/L
[2018-04-25 05:02] LABS: Carbon Dioxide 54 mmol/L (22-30)
[2018-04-25] MEDS ORDERED: Magnesium Replacement Protocol 1 EACH MISC MISCELLANE PRN (05:23)
[2018-04-25 05:39] LABS: ABG HCO3 56 mmol/L (21-25); ABG PCO2 86 mmHg (35-45)
[2018-04-25 05:40] LABS: ABG Base Excess 31.8 mmol/L
[2018-04-25] MEDS: DEXTROSE 5% IN WATER 1,000 ML IV SCH ×2 (06:40→21:52)
[2018-04-25 06:55] LABS: Glucose,Whole Blood 152 mg/dL (75-99)
--- NOTE | 2018-04-25 07:16 | XR ---
EXAMINATION TYPE: XR chest 1V portable DATE OF EXAM: 04/25/2018 COMPARISON: 04/24/2018 HISTORY: Ventilatory dependent respiratory failure. TECHNIQUE: Single frontal view of the chest is obtained. FINDINGS: There remains a midline tracheostomy. 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 Surgical sutures are seen within the right lung apex. Osseous structures are grossly intact. Cardia mediastinal silhouette is within normal limits. There is improving right b asilar opacity in comparison to the prior. Engorgement of the pulmonary vasculature suggests underlyi ng matter hypertension. Chronic blunting of the right costophrenic angle may relate to chronic pleura l reaction or trace pleural effusion. IMPRESSION: 1. Improved right basilar airspace disease representing either improving pneumonia or atelectasis. 2. Findings indicative of underlying COPD and suggestive of pulmonary artery hypertension. 3. Persistent blunting of the right costophrenic angle may relate to chronic pleural reaction or a tr nidia pleural effusion.
[2018-04-25] MEDS: BUDESONIDE 1 MG/2 ML NEBU INHALATION SCH ×2 (07:17→19:12)
[2018-04-25] MEDS: FORMOTEROL FUMARATE 20 MCG/2 ML NEBU INHALATION SCH ×2 (07:17→19:12)
[2018-04-25] MEDS: CHLORHEXIDINE GLUCONATE 15 ML CUP MUCOUS MEM SCH ×2 (08:06→20:21)
[2018-04-25] MEDS: PANTOPRAZOLE 40 MG/10 ML VIAL IV SCH (08:06)
[2018-04-25] MEDS: ENOXAPARIN 40 MG/0.4 ML SYRINGE SQ SCH (08:06)
[2018-04-25] MEDS: MAGNESIUM SULFATE-D5W PMX 1 GM in DEXTROSE/WATER 1 100ML.BAG IVPB SCH ×2 (08:09→09:29)
[2018-04-25] MEDS: CLEVIDIPINE BUTYRATE 25 MG in EMPTY BAG 1 BAG IV SCH ×4 (09:03→21:52)
--- NOTE | 2018-04-25 09:11 | P.PN ---
Subjective Progress Note Date: 04/25/18 Principal diagnosis: Hypoxemic respiratory failure, COPD Progress note dated 04/21/2018 This is a 57-year-old female well-known to me. She was admitted on April 17 intubated on April 19. Currently on the volume assist control mode with a rate of 14 tidal volume 350 FiO2 35% PEEP of 6. Arterial blood gases show a PaO2 of 72 and a PaCO2 of 81 and a pH is 7.36. She is on a saline IV at 75 mL an hour propofol at 50 mics per kilogram per minute and norepinephrine is on hold. No tube feeds have been started as yet. She's had an oral gastric tube in place and an endotracheal tube in place. I've asked the nurses to talk to nutrition about starting tube feeds. In addition to hypoxemic hypercapnic respiratory failure, she has a history of spontaneous pneumothorax in 2006 with previous wedge resection and mechanical pleurodesis breast cancer 2004 with bilateral breast reconstruction and sepsis with septic shock and hypotension. She is also thought to possibly have community-acquired bilateral pneumonia. I have talked to this patient in the past about possible lung transplantation but she wasn't very excited. She was anemic excited to have a evaluation. Microbiology is as far all negative. White count is 15.7 hemoglobin 10.7 hematocrit 34.8 and platelet count 234,000. In addition, sodium 138 potassium 5.1 chloride 91 CO2 45 anion gap to be running creatinine 17 and 0.43. Chest x- rays mostly consistent with hyperinflation. Computed tomography scan of the chest shows diffuse peribronchial cuffing with tree-in-bud opacities as well as diffuse nodular opacities. Progress note dated 04/22/2018 57-year-old female well-known to me. She has a history of severe COPD. She was admitted on April 17 intubated on April 19. She actually has made no progress towards extubation. I've had a series talk with the family yesterday. She likely will end up with a trach and PEG. Currently, we did do a daily eruption of sedation with a spontaneous breathing trial but unfortunately she did very poorly. Her rapid shallow breathing index was well above 105. Tidal volumes are low. Respiratory rates were very high. Her saturations dropped into the 70s. Hence was placed back on the ventilator at the previous settings. Currently, she is on the volume assist control modality with a rate of 14 tidal volume 350 FiO2 35% and a PEEP of 6. Arterial blood gases show a PaO2 of 70 a PaCO2 of 77 and a normal pH is 7.42. She is on propofol at 50 mics per kilogram per minute is saline IV at 75 mL an hour and vital high protein at 10 with a goal of 41 mL an hour. Chest x-ray shows only changes of COPD. I am and have the respiratory therapist pushed endotracheal tube down 1 cm. Progress note dated 04/23/2018 57-year-old female well-known to me. She has a history of severe COPD with an FEV1 that's below 30%. Currently still on the ventilator. She is on the volume assist control mode with a rate of 14, tidal volume 350, FiO2 40%, and PEEP of 6. Arterial blood gases show a PaO2 of 96 a PaCO2 of 87 and a pH of 7.35. She is scheduled for a tracheostomy and PEG tube placement today at 1 PM. Chest x-ray shows a minimal infiltrate in the right lower lobe. She is on a saline IV at 55 mL an hour lactated Ringer's at 20 mL an hour. Tube feedings are off in anticipation of her surgery today. She really has not made any progress towards weaning and extubation. I have had discussions with the family. They understand her poor prognosis. She will have a daily interuption of sedation today. Progress note dated 04/24/2018 57-year-old female well-known to me. She has a history of severe COPD with an FEV1 that is about 23% of predicted. Yesterday, she's had a tracheostomy and PEG tube performed by one of the thoracic surgeons. The patient has been on the volume assist control mode rate of 14 tidal volume 350 FiO2 40% PEEP of 6. Arterial blood gases show a PaO2 of 77 a PaCO2 of 92 and a pH of 7.33. The patient will get a spontaneous breathing trial today. We'll place her on PSV 8 CPAP of 5. She's not on any propofol at this time. The patient will get some additional Lasix today 40 mg IV push. She's on a D5W IV at 60 mL an hour. Tube feeds are currently on hold given the recent PEG tube placement. She is much more awake and alert today. She looks well. Overall prognosis O is very guarded. Chest x-ray showed appears to show a minimal infiltrate in the right lower lobe. White count is 17.4 hemoglobin 10.8 hematocrit 35.5 and platelet count 328,000. Sodium 141 potassium 4.8 chloride 90 CO2 46 BUN and creatinine were 29 and 0.4. Progress note dated 04/25/2018 57-year-old female well-known to me. She has history of severe stage IV COPD with an FEV1 that is 23% of predicted. 2 days ago, on the , she had a tracheostomy and PEG tube performed by one of the thoracic surgeons. Yesterday she spent about an hour on pressure support and CPAP. She apparently got anxious according to the nurses. Today, we put her back on PSV 8 CPAP of 5. So far she is doing well. Her ventilator settings when she is not on the pressor support include the volume assist control mode rate of 14, tidal volume 350, FiO2 40% and PEEP of 5. Arterial blood gases show a PaO2 of 80 a PaCO2 of 86 and a pH that is normal at 7.42. She's getting dextrose and water at 60 mL an hour and vital AF 1.2 at 25 mL an hour with a goal of 47 mL an hour. Chest x -ray shows a minimal infiltrate right lower lobe. Yesterday we gave her some Lasix and she seemed to diuresis well. Today she looks much happier with a smile on her face and she has much less edema and anasarca. So far all her culture data is negative. Her sister is at the bedside. Objective - Vital Signs Vital signs: Vital Signs Temp 98.6 F 04/25/18 08:00 Pulse 91 04/25/18 09:00 Resp 19 04/25/18 09:00 BP 142/92 04/25/18 09:00 Pulse Ox 96 04/25/18 09:00 Intake & Output 04/24/18 04/25/18 04/25/18 18:59 06:59 18:59 Intake Total 1175 1000 435 Output Total 3220 1195 385 Balance -2044 50 Weight 60.9 kg Intake: IV 1070 720 330 Dextrose 5% in Water 1, 720 720 180 000 ml @ 60 mls/hr IV . [id number] [facility] Rx#:[id number] Magnesium Sulfate-D5w Pmx 100 1 gm In Dextrose/Water 1 100ml.bag @ 100 mls/hr IVPB Q1H [facility] Rx#: [id number] Piperacillin-Tazobactam 3 100 50 .375 gm In Dextrose/Water 1 50ml.bag @ 12.5 mls/hr IVPB Q8HR [facility] Rx#: [id number] Vancomycin 1,000 mg In 250 Sodium Chloride 0.9% 250 ml @ 125 mls/hr IVPB Q8H [facility] Rx#:[id number] Tube Feeding 75 190 75 Other 30 90 30 Output: Urine 3220 1195 385 Other: Voiding Method Indwelling Catheter Indwelling Catheter Indwelling Catheter ABP, PAP, CO, CI - Last Documented Arterial Blood Pressure 148/77 - Exam No acute distress, the patient is awake and alert. She is smiling. She seems comfortable on PSV 8/CPAP 5. HEENT examination is grossly unremarkable. Mucous membranes are moist. No oral lesions. The patient has a midline tracheostomy tube. Neck supple. Full range of motion. No adenopathy thyromegaly or neck vein distention. Cardiovascular examination reveals regular rhythm rate. S1-S2 normal. No S3 or S4. No discernible murmur noted. Lungs reveal clear breath sounds. Her sounds are equal bilaterally. A few scattered rhonchi noted bilaterally. Abdomen soft bowel sounds are heard. No masses or tenderness. Fresh PEG tube is noted. Extremities are intact. No cyanosis clubbing or edema. Skin is without rash or lesion. Neurologic examination is brief but nonfocal. - Labs CBC & Chem 7: 04/25/18 04:30 04/25/18 04:30 Labs: Abnormal Lab Results - Last 24 Hours (Table) 04/24/18 04/24/18 04/25/18 Range/Units 11:48 18:41 00:11 WBC (3.8-10.6) k/uL RBC (3.80-5.40) m/uL Hgb (11.4-16.0) gm/dL ABG pCO2 (35-45) mmHg ABG pO2 (83-108) mmHg ABG HCO3 (21-25) mmol/L ABG Total CO2 (19-24) mmol/L Chloride (98-107) mmol/L Carbon Dioxide (22-30) mmol/L BUN (7-17) mg/dL Creatinine (0.52-1.04) mg/dL Glucose (74-99) mg/dL POC Glucose (mg/dL) 122 H 141 H 136 H (75-99) mg/dL 04/25/18 04/25/18 04/25/18 Range/Units 04:23 04:30 04:30 WBC 12.9 H (3.8-10.6) k/uL RBC 3.71 L (3.80-5.40) m/uL Hgb 10.7 L (11.4-16.0) gm/dL ABG pCO2 86 H* (35-45) mmHg ABG pO2 80 L (83-108) mmHg ABG HCO3 56 H* (21-25) mmol/L ABG Total CO2 59 H (19-24) mmol/L Chloride 82 L (98-107) mmol/L Carbon Dioxide 54 H* (22-30) mmol/L BUN 21 H (7-17) mg/dL Creatinine 0.36 L (0.52-1.04) mg/dL Glucose 163 H (74-99) mg/dL POC Glucose (mg/dL) (75-99) mg/dL 04/25/18 Range/Units 06:53 WBC (3.8-10.6) k/uL RBC (3.80-5.40) m/uL Hgb (11.4-16.0) gm/dL ABG pCO2 (35-45) mmHg ABG pO2 (83-108) mmHg ABG HCO3 (21-25) mmol/L ABG Total CO2 (19-24) mmol/L Chloride (98-107) mmol/L Carbon Dioxide (22-30) mmol/L BUN (7-17) mg/dL Creatinine (0.52-1.04) mg/dL Glucose (74-99) mg/dL POC Glucose (mg/dL) 152 H (75-99) mg/dL Assessment and Plan Assessment: Assessment Hypoxemic and Hypercapnic Respiratory Failure Secondary to His Very Severe COPD , Status Post Intubation and Mechanical Ventilation, with attempts at spontaneous breathing trial following a daily eruption of sedation, which was unsuccessful. Postop day #2, status post tracheostomy and PEG tube placement History of Severe Emphysema, stage IV, with an FEV1 that is less than 30% of predicted. Possible Community-Acquired Pneumonia, right lower lobe. History of Spontaneous Pneumothorax in 2006 with Apical Bleb Resection and Mechanical Pleurodesis Breast Cancer, 2004, Status Post Bilateral Breast Reconstruction Hypotension, Resolved, Secondary to Sepsis Anticipated tracheostomy and PEG tube placement on April 23. Plan: Plan dated 04/21/2018 The patient is currently on the ventilator. She is currently being sedated sedated with propofol. The norepinephrine has been turned off. We will start feedings today. Gases are reasonable. Prognosis is poor. The poor lady may end up with a tracheostomy and PEG tube. I will deftly have discussions with the family. I did offer patient the previous evaluation for lung transplantation and every 4 but the patient refuses. This is her first episode of acute and severe respiratory failure. Plan dated 04/22/2018 The patient was given a daily eruption of sedation with a spontaneous breathing trial. As mentioned above, she felt very miserably. White count is 11.6 and 1110.3 hematocrit 33.1 and platelet count is normal. Sodium is 139 potassium 4.1 chloride is 89 CO2 48 year and crackles were 25 and 0.40. The patient's currently receiving all appropriate medications including nebulizer treatments antibiotics and steroids. Likely she will need a tracheostomy and PEG tube. We 'll ask one of her thoracic surgeons to contemplate that. Additional recommendations and suggestions are forthcoming. Prognosis is very guarded. Medications labs and x-rays all reviewed. Critical care time 38 minutes. Plan dated 04/23/2018 The patient will get a daily interruption of sedation. No attempts at weaning today. Vent settings and blood gases are reasonable. Tracheostomy and PEG tube placement today at 1 PM. Chest x-ray shows a mild right lower lobe infiltrate. Medications labs and x-rays are reviewed. I will have further discussions with the family. Prognosis is guarded. Additional recommendations and suggestions are forthcoming. White count 10.4, hemoglobin 9.7, hematocrit 31.5, and platelet count 224,000. Sodium potassium are normal. Chloride is 94 and CO2 49. BUN and creatinine were 28 and 0.4. Thus far, microbiology all negative. Critical care time 36 minutes Plan dated 04/24/2018 The patient is postop day #1 status post tracheostomy and PEG tube placement. She's not on any sedation at the current time. She does receive some when necessary narcotic. She seems much more awake and alert. Arterial blood gases and that settings were noted. The patient will be given a trial of PSV 8 CPAP of 5. We'll make sure that she does not fatigue. Likely she'll end up back on the ventilator and nighttime. Additional recommendations and suggestions are forthcoming. Labs x-rays a medications are all reviewed. Critical care time 32 minutes Plan dated 04/25/2018 The patient is postop day #2 status post tracheostomy and PEG tube placement. She did not do very well yesterday on PSV/CPAP lasting only about 1 hour. The nurses feel like maybe she had a bit anxious. Sisters at the bedside. She is ready back on pressure support this morning. She is on her tube feeds for nourishment. All her culture data is negative. The sister will limit visitors today. She seemed to be more comfortable today. She did have a significant diuresis after 40 mg of Lasix yesterday. Additional recommendations and suggestions are forthcoming. Prognosis is guarded given her severe chronic lung disease. Critical care time 33 minutes Time with Patient: Greater than 30
[2018-04-25 12:01] LABS: Glucose,Whole Blood 146 mg/dL (75-99)
[2018-04-25] MEDS: LACTULOSE 20 GM/30 ML CUP PO SCH ×2 (12:33→20:21)
--- NOTE | 2018-04-25 13:26 | P.PN ---
Subjective 57-year-old female with history of severe end-stage COPD O2 dependent ( FEV1 is in the range of 26% at best, FEV1/FVC is 41%) came in with a few days' history of increased shortness of breath, cough, cough is productive with whitish phlegm , some wheezing, no chest pain, no fever, no chills, no hemoptysis. Patient normally sees Dr. Henderson for her COPD, and her primary care physician is Dr. Golden. Patient was just discharged about 6 days ago from [facility] when she was admitted initially with a similar episode of COPD exacerbation and tracheobronchitis. Patient had previous screening for alpha- 1 antitrypsin deficiency, and she was told it was negative by Dr. Henderson. Chest x-ray in the ER showed no evidence of active disease, there was hyperinflation consistent with COPD. She is being treated for COPD exacerbation currently. On 04/19/2018 - patient has been lying in bed and appears to be in mild respiratory distress. Patient is currently on 5 L of oxygen via nasal cannula saturating barely at 90%. As per the nursing staff report patient has been like this since morning and she has not been getting her breathing treatments . She is also on IV Solu-Medrol and antibiotics in the form of Zosyn. 04/20/2018- last night patient's respiration became labored so patient was placed on BiPAP for a few minutes but could not tolerate it and her clinical status deteriorated and rapid response team was called. She was then intubated around 6:30 PM last night. She was on Zosyn, vancomycin and doxycycline have been added to her antibiotics. Sputum cultures and blood cultures were also ordered. Patient dropped her blood pressure for which she was started on Levophed.She is currently on a ventilator. On 04/21/18 - patient remained sedated and is being mechanically ventilated. She is off of Levophed. No acute overnight events reported by nursing staff. 04/22/2018 Patient failed weaning trial today. 04/23/2018 no significant prominent compared to yesterday regarding her respiratory status is up with pulmonology dictation for further details patient appears to have failed a weaning trial event today. 04/24/2018 Patient underwent tracheostomy and PEG tube placement. 04/25/2018 Patient tolerated spontaneous breathing very well today patient's abdomen is distended, ordered medications for constipation no overnight events. Objective - Vital Signs Vital signs: Vital Signs Temp 98.8 F 04/25/18 12:00 Pulse 90 04/25/18 13:00 Resp 14 04/25/18 13:00 BP 136/77 04/25/18 13:00 Pulse Ox 96 04/25/18 13:00 Intake & Output 04/24/18 04/25/18 04/25/18 18:59 06:59 18:59 Intake Total 1175 1000 914 Output Total 3220 1195 715 Balance -2045 -195 199 Weight 60.9 kg 60.9 kg Intake: IV 1070 720 679 Dextrose 5% in Water 1, 720 720 420 000 ml @ 60 mls/hr IV . [id number] [facility] Rx#:[id number] Magnesium Sulfate-D5w Pmx 200 1 gm In Dextrose/Water 1 100ml.bag @ 100 mls/hr IVPB Q1H [facility] Rx#: [id number] Piperacillin-Tazobactam 3 100 50 .375 gm In Dextrose/Water 1 50ml.bag @ 12.5 mls/hr IVPB Q8HR [facility] Rx#: [id number] Vancomycin 1,000 mg In 250 Sodium Chloride 0.9% 250 ml @ 125 mls/hr IVPB Q8H [facility] Rx#:[id number] o,9 for pressure bag 9 Tube Feeding 75 190 175 Other 30 90 60 Output: Urine 3220 1195 715 Other: Voiding Method Indwelling Catheter Indwelling Catheter Indwelling Catheter ABP, PAP, CO, CI - Last Documented Arterial Blood Pressure 171/92 - Exam Physical Exam: Patient is on ventilatory support intake alert off pressor support has a tracheostomy and PEG tube placement Head: Atraumatic, normocephalic. Patient had a tracheostomy today HEENT:Neck is supple.No neck masses. No thyromegaly. Chest: Extremely diminished breath sound bilaterally, few wheezes bilaterally Cardiac Exam: Normal S1 and S2, no S3 gallop, no murmur. Abdomen: Soft, nontender, no megaly, no rebound, no guarding, normal bowel sounds. PEG tube in place patient will be initiated on PEG tube feedings today Extremities: No clubbing, no edema, no cyanosis Neurological Exam: Awake and alert and does not appear to have any focal deficits - Labs CBC & Chem 7: 04/25/18 04:30 04/25/18 04:30 Labs: Abnormal Lab Results - Last 24 Hours (Table) 04/24/18 04/25/18 04/25/18 Range/Units 18:41 00:11 04:23 WBC (3.8-10.6) k/uL RBC (3.80-5.40) m/uL Hgb (11.4-16.0) gm/dL ABG pCO2 86 H* (35-45) mmHg ABG pO2 80 L (83-108) mmHg ABG HCO3 56 H* (21-25) mmol/L ABG Total CO2 59 H (19-24) mmol/L Chloride (98-107) mmol/L Carbon Dioxide (22-30) mmol/L BUN (7-17) mg/dL Creatinine (0.52-1.04) mg/dL Glucose (74-99) mg/dL POC Glucose (mg/dL) 141 H 136 H (75-99) mg/dL 04/25/18 04/25/18 04/25/18 Range/Units 04:30 04:30 06:53 WBC 12.9 H (3.8-10.6) k/uL RBC 3.71 L (3.80-5.40) m/uL Hgb 10.7 L (11.4-16.0) gm/dL ABG pCO2 (35-45) mmHg ABG pO2 (83-108) mmHg ABG HCO3 (21-25) mmol/L ABG Total CO2 (19-24) mmol/L Chloride 82 L (98-107) mmol/L Carbon Dioxide 54 H* (22-30) mmol/L BUN 21 H (7-17) mg/dL Creatinine 0.36 L (0.52-1.04) mg/dL Glucose 163 H (74-99) mg/dL POC Glucose (mg/dL) 152 H (75-99) mg/dL 04/25/18 Range/Units 11:56 WBC (3.8-10.6) k/uL RBC (3.80-5.40) m/uL Hgb (11.4-16.0) gm/dL ABG pCO2 (35-45) mmHg ABG pO2 (83-108) mmHg ABG HCO3 (21-25) mmol/L ABG Total CO2 (19-24) mmol/L Chloride (98-107) mmol/L Carbon Dioxide (22-30) mmol/L BUN (7-17) mg/dL Creatinine (0.52-1.04) mg/dL Glucose (74-99) mg/dL POC Glucose (mg/dL) 146 H (75-99) mg/dL Assessment and Plan Plan: Acute hypoxic/hypercapnic respiratory failure - on mechanical ventilation, patient underwent tracheostomy and PEG tube placement Acute COPD exacerbation Hypotension - secondary to Sepsis- off of pressors currently Hyponatremia History of pneumothorax and wedge resection in the past History of bilateral mastectomy with breast reconstructive surgery Nicotine dependence Moderate protein calorie malnutrition Roseline albicans in the sputum PLAN: Continue with mechanical ventilation and IV steroids. Antibiotics in the form of Zosyn, vancomycin was discontinued. So far cultures are negative
[2018-04-25 18:06] LABS: Glucose,Whole Blood 147 mg/dL (75-99)
[2018-04-25] MEDS: SENNOSIDES 8.6 MG TAB PO SCH (20:21)
[2018-04-26 00:01] LABS: Glucose,Whole Blood 181 mg/dL (75-99)
[2018-04-26] MEDS: INSULIN ASPART 100 UNIT/ML 1 ML 10 ML VIAL SQ SCH ×4 (00:02→17:34)
[2018-04-26] MEDS: PIPERACILLIN-TAZOBACTAM 3.375 GM in DEXTROSE/WATER 1 50ML.BAG IVPB SCH ×3 (00:02→17:29)
[2018-04-26] MEDS: methylPREDNISolone SOD SUCCI 40 MG/ML 1 ML VIAL IV SCH ×4 (00:04→17:30)
[2018-04-26] MEDS: CLEVIDIPINE BUTYRATE 25 MG in EMPTY BAG 1 BAG IV SCH ×4 (01:00→09:55)
[2018-04-26] MEDS: IPRATROPIUM-ALBUTEROL 3 ML NEB INHALATION SCH ×6 (03:31→23:48)
--- NOTE | 2018-04-26 04:07 | PN ---
PROGRESS NOTE DATE OF SERVICE: 04/25/2018. REASON FOR FOLLOWUP: Pneumonia. INTERVAL HISTORY: The patient is afebrile. She is currently breathing comfortably. More awake and alert. Follows commands and has been weaning off the vent. Tolerating tube feeds. No diarrhea. The patient is constipated. EXAMINATION: Blood pressure is 119/59, pulse of 99, temperature 98.8. She is 94% on 40% FiO2. General description is an elderly female lying in bed in no distress. Respiratory system: Unlabored breathing, clear to auscultation anteriorly. Heart S1, S2. Regular rate and rhythm. No tenderness. LABS: Hemoglobin is 10 with white count , BUN of 21, creatinine 0.36. DIAGNOSTIC IMPRESSION AND PLAN: Patient with acute respiratory failure multifactorial with possible component of pneumonia, chronic obstructive pulmonary disease exacerbation, purulent tracheobronchitis. Currently on Zosyn that will be continued for now while waiting for condition to stabilize. Continue supportive care. MMODL / IJN: [id number] /
[2018-04-26 04:50] LABS: Basophils % (A) 0 %; Eosinophils % (A) 0 %; HCT 36.1 % (34.0-46.0); HGB 11.3 gm/dL (11.4-16.0); Lymphocytes # (A) 0.3 k/uL (1.0-4.8); Lymphocytes % (A) 2 %; MCH 28.6 pg (25.0-35.0); MCHC 31.4 g/dL (31.0-37.0); MCV 91.3 fL (80.0-100.0); Mean Platelet Volume 7.6; Monocytes # (A) 0.5 k/uL (0-1.0); Monocytes % (A) 3 %; Neutrophils # (A) 13.9 k/uL (1.3-7.7); Neutrophils % (A) 94 %; Platelet Count 309 k/uL (150-450); RBC 3.95 m/uL (3.80-5.40); RDW 12.8 % (11.5-15.5); WBC 14.7 k/uL (3.8-10.6)
[2018-04-26 05:03] LABS: Glucose,Whole Blood 160 mg/dL (75-99)
[2018-04-26 05:06] LABS: Blood Urea Nitrogen 20 mg/dL (7-17); Calcium 8.7 mg/dL (8.4-10.2); Chloride 81 mmol/L (98-107); Glucose 166 mg/dL (74-99); Magnesium 2.1 mg/dL (1.6-2.3); Phosphorus 3.2 mg/dL (2.5-4.5); Potassium 4.5 mmol/L (3.5-5.1); Sodium 134 mmol/L (137-145)
[2018-04-26 05:12] LABS: Anion Gap 3 mmol/L
[2018-04-26 05:17] LABS: Carbon Dioxide 50 mmol/L (22-30)
[2018-04-26 05:37] LABS: ABG Base Excess 26.6 mmol/L; ABG Oxygen Saturation 97.8 % (94-97); ABG PH 7.44 (7.35-7.45); ABG PO2 86 mmHg (83-108); ABG TCO2 53 mmol/L (19-24)
[2018-04-26 05:39] LABS: ABG HCO3 51 mmol/L (21-25); ABG PCO2 75 mmHg (35-45)
--- NOTE | 2018-04-26 07:11 | XR ---
EXAMINATION: XR chest 1V portable DATE AND TIME: 04/26/2018 4:21 AM ORDERING PROVIDER: Abe Henderson CLINICAL INDICATION: ET placement TECHNIQUE: AP semiupright portable COMPARISON: 04/25/2018 at 6:26 AM FINDINGS: Tracheostomy tube tip superimposed over the midtrachea. EKG leads. Marked hyperinflation is redemonstrated. No pneumothorax. No pleural effusion. The overall lung inflation pattern is mildly improved when compared to the prior study, with residual partial airlessness within the right lower lobe noted. IMPRESSION: Mild interval improvement, with persistent right lung base airlessness.
[2018-04-26] MEDS: BUDESONIDE 1 MG/2 ML NEBU INHALATION SCH ×2 (07:26→19:41)
[2018-04-26] MEDS: FORMOTEROL FUMARATE 20 MCG/2 ML NEBU INHALATION SCH ×2 (07:26→19:41)
--- NOTE | 2018-04-26 07:55 | P.PN ---
Subjective Progress Note Date: 04/26/18 Principal diagnosis: Hypoxemic respiratory failure, COPD Progress note dated 04/21/2018 This is a 57-year-old female well-known to me. She was admitted on April 17 intubated on April 19. Currently on the volume assist control mode with a rate of 14 tidal volume 350 FiO2 35% PEEP of 6. Arterial blood gases show a PaO2 of 72 and a PaCO2 of 81 and a pH is 7.36. She is on a saline IV at 75 mL an hour propofol at 50 mics per kilogram per minute and norepinephrine is on hold. No tube feeds have been started as yet. She's had an oral gastric tube in place and an endotracheal tube in place. I've asked the nurses to talk to nutrition about starting tube feeds. In addition to hypoxemic hypercapnic respiratory failure, she has a history of spontaneous pneumothorax in 2006 with previous wedge resection and mechanical pleurodesis breast cancer 2004 with bilateral breast reconstruction and sepsis with septic shock and hypotension. She is also thought to possibly have community-acquired bilateral pneumonia. I have talked to this patient in the past about possible lung transplantation but she wasn't very excited. She was anemic excited to have a evaluation. Microbiology is as far all negative. White count is 15.7 hemoglobin 10.7 hematocrit 34.8 and platelet count 234,000. In addition, sodium 138 potassium 5.1 chloride 91 CO2 45 anion gap to be running creatinine 17 and 0.43. Chest x- rays mostly consistent with hyperinflation. Computed tomography scan of the chest shows diffuse peribronchial cuffing with tree-in-bud opacities as well as diffuse nodular opacities. Progress note dated 04/22/2018 57-year-old female well-known to me. She has a history of severe COPD. She was admitted on April 17 intubated on April 19. She actually has made no progress towards extubation. I've had a series talk with the family yesterday. She likely will end up with a trach and PEG. Currently, we did do a daily eruption of sedation with a spontaneous breathing trial but unfortunately she did very poorly. Her rapid shallow breathing index was well above 105. Tidal volumes are low. Respiratory rates were very high. Her saturations dropped into the 70s. Hence was placed back on the ventilator at the previous settings. Currently, she is on the volume assist control modality with a rate of 14 tidal volume 350 FiO2 35% and a PEEP of 6. Arterial blood gases show a PaO2 of 70 a PaCO2 of 77 and a normal pH is 7.42. She is on propofol at 50 mics per kilogram per minute is saline IV at 75 mL an hour and vital high protein at 10 with a goal of 41 mL an hour. Chest x-ray shows only changes of COPD. I am and have the respiratory therapist pushed endotracheal tube down 1 cm. Progress note dated 04/23/2018 57-year-old female well-known to me. She has a history of severe COPD with an FEV1 that's below 30%. Currently still on the ventilator. She is on the volume assist control mode with a rate of 14, tidal volume 350, FiO2 40%, and PEEP of 6. Arterial blood gases show a PaO2 of 96 a PaCO2 of 87 and a pH of 7.35. She is scheduled for a tracheostomy and PEG tube placement today at 1 PM. Chest x-ray shows a minimal infiltrate in the right lower lobe. She is on a saline IV at 55 mL an hour lactated Ringer's at 20 mL an hour. Tube feedings are off in anticipation of her surgery today. She really has not made any progress towards weaning and extubation. I have had discussions with the family. They understand her poor prognosis. She will have a daily interuption of sedation today. Progress note dated 04/24/2018 57-year-old female well-known to me. She has a history of severe COPD with an FEV1 that is about 23% of predicted. Yesterday, she's had a tracheostomy and PEG tube performed by one of the thoracic surgeons. The patient has been on the volume assist control mode rate of 14 tidal volume 350 FiO2 40% PEEP of 6. Arterial blood gases show a PaO2 of 77 a PaCO2 of 92 and a pH of 7.33. The patient will get a spontaneous breathing trial today. We'll place her on PSV 8 CPAP of 5. She's not on any propofol at this time. The patient will get some additional Lasix today 40 mg IV push. She's on a D5W IV at 60 mL an hour. Tube feeds are currently on hold given the recent PEG tube placement. She is much more awake and alert today. She looks well. Overall prognosis O is very guarded. Chest x-ray showed appears to show a minimal infiltrate in the right lower lobe. White count is 17.4 hemoglobin 10.8 hematocrit 35.5 and platelet count 328,000. Sodium 141 potassium 4.8 chloride 90 CO2 46 BUN and creatinine were 29 and 0.4. Progress note dated 04/25/2018 57-year-old female well-known to me. She has history of severe stage IV COPD with an FEV1 that is 23% of predicted. 2 days ago, on the , she had a tracheostomy and PEG tube performed by one of the thoracic surgeons. Yesterday she spent about an hour on pressure support and CPAP. She apparently got anxious according to the nurses. Today, we put her back on PSV 8 CPAP of 5. So far she is doing well. Her ventilator settings when she is not on the pressor support include the volume assist control mode rate of 14, tidal volume 350, FiO2 40% and PEEP of 5. Arterial blood gases show a PaO2 of 80 a PaCO2 of 86 and a pH that is normal at 7.42. She's getting dextrose and water at 60 mL an hour and vital AF 1.2 at 25 mL an hour with a goal of 47 mL an hour. Chest x -ray shows a minimal infiltrate right lower lobe. Yesterday we gave her some Lasix and she seemed to diuresis well. Today she looks much happier with a smile on her face and she has much less edema and anasarca. So far all her culture data is negative. Her sister is at the bedside. Progress note dated 04/26/2018 57-year-old female well-known to me. She has a history of severe, stage IV COPD with an FEV1 that is 23% of predicted. She had a tracheostomy and PEG tube placed 3 days ago on the . Yesterday, she spent about 12 hours on PSV/ CPAP 8 and 5 respectively. She seems to be doing relatively well and will be placed back on PSV and CPAP today. Her ventilator settings overnight included volume assist control mode with a rate of 14, tidal volume 350, FiO2 40% and PEEP of 5. The patient seems awake and alert. Chest x-ray stable. Showing a minimal infiltrate right lower lobe. Microbiology is still on negative. There was some yeast in the afternoon. Likely just a contaminant or colonizer. White count is 14.7, hemoglobin 11.3 and platelet count is normal. Arterial blood gases show a PaO2 of 86 a PaCO2 of 75. PH is 7.44. The patient's sodium was 134 potassium 4.5 chloride is 81 CO2 50 and 9 Normal and BUN and creatinine were 20 and 0.3 respectively. The patient remains on Cleveprex at 8 mg an hour , D5W at 60 mL an hour, and vital AF 1.2 at 47 which is goal. Objective - Vital Signs Vital signs: Vital Signs Temp 98.7 F 04/26/18 04:00 Pulse 108 H 04/26/18 07:31 Resp 18 04/26/18 06:00 BP 129/75 04/26/18 05:00 Pulse Ox 96 04/26/18 06:00 Intake & Output 04/25/18 04/26/18 04/26/18 18:59 06:59 18:59 Intake Total 9878.658 3264.7 Output Total 1465 750 Balance -25.267 794.7 Weight 60.9 kg 59.7 kg Intake: IV 1019.0 788.5 Dextrose 5% in Water 1, 720 690 000 ml @ 60 mls/hr IV . [id number] [facility] Rx#:[id number] Magnesium Sulfate-D5w Pmx 200 1 gm In Dextrose/Water 1 100ml.bag @ 100 mls/hr IVPB Q1H [facility] Rx#: [id number] Piperacillin-Tazobactam 3 75.0 62.5 .375 gm In Dextrose/Water 1 50ml.bag @ 12.5 mls/hr IVPB Q8HR [facility] Rx#: [id number] o,9 for pressure bag 24 36 Intake, IV Titration 30.733 189.2 Amount Clevidipine Butyrate 25 30.733 189.2 mg In Empty Bag 1 bag @ 1 MG/HR 2 mls/hr IV .Q24H [facility] Rx#:[id number] Tube Feeding 300 537 Other 90 30 Output: Urine 1465 750 Other: Voiding Method Indwelling Catheter Indwelling Catheter ABP, PAP, CO, CI - Last Documented Arterial Blood Pressure 104/52 - Exam No acute distress, the patient is awake and alert. She is smiling. She seems comfortable on PSV 8/CPAP 5. HEENT examination is grossly unremarkable. Mucous membranes are moist. No oral lesions. The patient has a midline tracheostomy tube. Neck supple. Full range of motion. No adenopathy thyromegaly or neck vein distention. Cardiovascular examination reveals regular rhythm rate. S1-S2 normal. No S3 or S4. No discernible murmur noted. Lungs reveal clear breath sounds. Her sounds are equal bilaterally. A few scattered rhonchi noted bilaterally. Abdomen soft bowel sounds are heard. No masses or tenderness. Fresh PEG tube is noted. Extremities are intact. No cyanosis clubbing or edema. Skin is without rash or lesion. Neurologic examination is brief but nonfocal. - Labs CBC & Chem 7: 04/26/18 04:25 04/26/18 04:25 Labs: Abnormal Lab Results - Last 24 Hours (Table) 04/25/18 04/25/18 04/25/18 Range/Units 11:56 18:04 23:59 WBC (3.8-10.6) k/uL Hgb (11.4-16.0) gm/dL Neutrophils # (1.3-7.7) k/uL Lymphocytes # (1.0-4.8) k/uL ABG pCO2 (35-45) mmHg ABG HCO3 (21-25) mmol/L ABG Total CO2 (19-24) mmol/L ABG O2 Saturation (94-97) % Sodium (137-145) mmol/L Chloride (98-107) mmol/L Carbon Dioxide (22-30) mmol/L BUN (7-17) mg/dL Creatinine (0.52-1.04) mg/dL Glucose (74-99) mg/dL POC Glucose (mg/dL) 146 H 147 H 181 H (75-99) mg/dL 04/26/18 04/26/18 04/26/18 Range/Units 04:25 04:25 05:01 WBC 14.7 H (3.8-10.6) k/uL Hgb 11.3 L (11.4-16.0) gm/dL Neutrophils # 13.9 H (1.3-7.7) k/uL Lymphocytes # 0.3 L (1.0-4.8) k/uL ABG pCO2 (35-45) mmHg ABG HCO3 (21-25) mmol/L ABG Total CO2 (19-24) mmol/L ABG O2 Saturation (94-97) % Sodium 134 L (137-145) mmol/L Chloride 81 L (98-107) mmol/L Carbon Dioxide 50 H* (22-30) mmol/L BUN 20 H (7-17) mg/dL Creatinine 0.30 L (0.52-1.04) mg/dL Glucose 166 H (74-99) mg/dL POC Glucose (mg/dL) 160 H (75-99) mg/dL 04/26/ Range/Units 05:35 WBC (3.8-10.6) k/uL Hgb (11.4-16.0) gm/dL Neutrophils # (1.3-7.7) k/uL Lymphocytes # (1.0-4.8) k/uL ABG pCO2 75 H* (35-45) mmHg ABG HCO3 51 H* (21-25) mmol/L ABG Total CO2 53 H (19-24) mmol/L ABG O2 Saturation 97.8 H (94-97) % Sodium (137-145) mmol/L Chloride (98-107) mmol/L Carbon Dioxide (22-30) mmol/L BUN (7-17) mg/dL Creatinine (0.52-1.04) mg/dL Glucose (74-99) mg/dL POC Glucose (mg/dL) (75-99) mg/dL Assessment and Plan Assessment: Assessment Hypoxemic and Hypercapnic Respiratory Failure Secondary to His Very Severe COPD , Status Post Intubation and Mechanical Ventilation, with attempts at spontaneous breathing trial following a daily interuption of sedation, which was unsuccessful. Postop day #3, status post tracheostomy and PEG tube placement History of Severe Emphysema, stage IV, with an FEV1 that is less than 30% of predicted. Possible Community-Acquired Pneumonia, right lower lobe. History of Spontaneous Pneumothorax in 2006 with Apical Bleb Resection and Mechanical Pleurodesis Breast Cancer, 2004, Status Post Bilateral Breast Reconstruction Hypotension, Resolved, Secondary to Sepsis Anticipated tracheostomy and PEG tube placement on April 23. Plan: Plan dated 04/21/2018 The patient is currently on the ventilator. She is currently being sedated sedated with propofol. The norepinephrine has been turned off. We will start feedings today. Gases are reasonable. Prognosis is poor. The poor lady may end up with a tracheostomy and PEG tube. I will deftly have discussions with the family. I did offer patient the previous evaluation for lung transplantation and every 4 but the patient refuses. This is her first episode of acute and severe respiratory failure. Plan dated 04/22/2018 The patient was given a daily eruption of sedation with a spontaneous breathing trial. As mentioned above, she felt very miserably. White count is 11.6 and 1110.3 hematocrit 33.1 and platelet count is normal. Sodium is 139 potassium 4.1 chloride is 89 CO2 48 year and crackles were 25 and 0.40. The patient's currently receiving all appropriate medications including nebulizer treatments antibiotics and steroids. Likely she will need a tracheostomy and PEG tube. We 'll ask one of her thoracic surgeons to contemplate that. Additional recommendations and suggestions are forthcoming. Prognosis is very guarded. Medications labs and x-rays all reviewed. Critical care time 38 minutes. Plan dated 04/23/2018 The patient will get a daily interruption of sedation. No attempts at weaning today. Vent settings and blood gases are reasonable. Tracheostomy and PEG tube placement today at 1 PM. Chest x-ray shows a mild right lower lobe infiltrate. Medications labs and x-rays are reviewed. I will have further discussions with the family. Prognosis is guarded. Additional recommendations and suggestions are forthcoming. White count 10.4, hemoglobin 9.7, hematocrit 31.5, and platelet count 224,000. Sodium potassium are normal. Chloride is 94 and CO2 49. BUN and creatinine were 28 and 0.4. Thus far, microbiology all negative. Critical care time 36 minutes Plan dated 04/24/2018 The patient is postop day #1 status post tracheostomy and PEG tube placement. She's not on any sedation at the current time. She does receive some when necessary narcotic. She seems much more awake and alert. Arterial blood gases and that settings were noted. The patient will be given a trial of PSV 8 CPAP of 5. We'll make sure that she does not fatigue. Likely she'll end up back on the ventilator and nighttime. Additional recommendations and suggestions are forthcoming. Labs x-rays a medications are all reviewed. Critical care time 32 minutes Plan dated 04/25/2018 The patient is postop day #2 status post tracheostomy and PEG tube placement. She did not do very well yesterday on PSV/CPAP lasting only about 1 hour. The nurses feel like maybe she had a bit anxious. Sisters at the bedside. She is ready back on pressure support this morning. She is on her tube feeds for nourishment. All her culture data is negative. The sister will limit visitors today. She seemed to be more comfortable today. She did have a significant diuresis after 40 mg of Lasix yesterday. Additional recommendations and suggestions are forthcoming. Prognosis is guarded given her severe chronic lung disease. Critical care time 33 minutes Plan dated 04/26/2018 The patient is postop day #3, status post tracheostomy and PEG tube placement. She didn't 12 hours of PSV and CPAP yesterday. Doing much better. Chest x-ray still shows a small infiltrate at the right base. Microbiology is negative. Labs x-rays a medications are all reviewed. We may attempt a trach collar today. I've been honest with her and the family. Prognosis is guarded. Again , labs x-rays a medications are all reviewed. Critical care time 34 minutes Time with Patient: Greater than 30
[2018-04-26] MEDS: PANTOPRAZOLE 40 MG/10 ML VIAL IV SCH (09:17)
[2018-04-26] MEDS: CHLORHEXIDINE GLUCONATE 15 ML CUP MUCOUS MEM SCH ×2 (09:17→20:14)
[2018-04-26] MEDS: ENOXAPARIN 40 MG/0.4 ML SYRINGE SQ SCH (09:17)
[2018-04-26] MEDS: LACTULOSE 20 GM/30 ML CUP PO SCH ×2 (09:18→20:13)
--- NOTE | 2018-04-26 11:01 | P.PN ---
Subjective 57-year-old female with history of severe end-stage COPD O2 dependent ( FEV1 is in the range of 26% at best, FEV1/FVC is 41%) came in with a few days' history of increased shortness of breath, cough, cough is productive with whitish phlegm , some wheezing, no chest pain, no fever, no chills, no hemoptysis. Patient normally sees Dr. Henderson for her COPD, and her primary care physician is Dr. Golden. Patient was just discharged about 6 days ago from [facility] when she was admitted initially with a similar episode of COPD exacerbation and tracheobronchitis. Patient had previous screening for alpha- 1 antitrypsin deficiency, and she was told it was negative by Dr. Henderson. Chest x-ray in the ER showed no evidence of active disease, there was hyperinflation consistent with COPD. She is being treated for COPD exacerbation currently. On 04/19/2018 - patient has been lying in bed and appears to be in mild respiratory distress. Patient is currently on 5 L of oxygen via nasal cannula saturating barely at 90%. As per the nursing staff report patient has been like this since morning and she has not been getting her breathing treatments . She is also on IV Solu-Medrol and antibiotics in the form of Zosyn. 04/20/2018- last night patient's respiration became labored so patient was placed on BiPAP for a few minutes but could not tolerate it and her clinical status deteriorated and rapid response team was called. She was then intubated around 6:30 PM last night. She was on Zosyn, vancomycin and doxycycline have been added to her antibiotics. Sputum cultures and blood cultures were also ordered. Patient dropped her blood pressure for which she was started on Levophed.She is currently on a ventilator. On 04/21/18 - patient remained sedated and is being mechanically ventilated. She is off of Levophed. No acute overnight events reported by nursing staff. 04/22/2018 Patient failed weaning trial today. 04/23/2018 no significant prominent compared to yesterday regarding her respiratory status is up with pulmonology dictation for further details patient appears to have failed a weaning trial event today. 04/24/2018 Patient underwent tracheostomy and PEG tube placement. 04/25/2018 Patient tolerated spontaneous breathing very well today patient's abdomen is distended, ordered medications for constipation no overnight events. 04/26/2018 no overnight events patient tolerated trach collar for more than 12 hours as today. Objective - Vital Signs Vital signs: Vital Signs Temp 98.7 F 04/26/18 04:00 Pulse 118 H 04/26/18 08:20 Resp 21 04/26/18 08:00 BP 131/76 04/26/18 07:00 Pulse Ox 98 04/26/18 08:00 Intake & Output 04/25/18 04/26/18 04/26/18 18:59 06:59 18:59 Intake Total 4382.266 8116.7 150.8 Output Total 1465 750 220 Balance -25.267 794.7 -69.2 Weight 60.9 kg 59.7 kg Intake: IV 1019.0 788.5 63 Dextrose 5% in Water 1, 720 690 60 000 ml @ 60 mls/hr IV . [id number] [facility] Rx#:[id number] Magnesium Sulfate-D5w Pmx 200 1 gm In Dextrose/Water 1 100ml.bag @ 100 mls/hr IVPB Q1H [facility] Rx#: [id number] Piperacillin-Tazobactam 3 75.0 62.5 .375 gm In Dextrose/Water 1 50ml.bag @ 12.5 mls/hr IVPB Q8HR [facility] Rx#: [id number] o,9 for pressure bag 24 36 3 Intake, IV Titration 30.733 189.2 50.8 Amount Clevidipine Butyrate 25 30.733 189.2 50.8 mg In Empty Bag 1 bag @ 1 MG/HR 2 mls/hr IV .Q24H [facility] Rx#:[id number] Tube Feeding 300 537 37 Other 90 30 Output: Urine 1465 750 220 Other: Voiding Method Indwelling Catheter Indwelling Catheter ABP, PAP, CO, CI - Last Documented Arterial Blood Pressure 132/81 - Exam Physical Exam: Patient is on ventilatory support intake alert off pressor support has a tracheostomy and PEG tube placement Head: Atraumatic, normocephalic. Patient had a tracheostomy today HEENT:Neck is supple.No neck masses. No thyromegaly. Chest: Extremely diminished breath sound bilaterally, few wheezes bilaterally Cardiac Exam: Normal S1 and S2, no S3 gallop, no murmur. Abdomen: Soft, nontender, no megaly, no rebound, no guarding, normal bowel sounds. PEG tube in place patient will be initiated on PEG tube feedings today Extremities: No clubbing, no edema, no cyanosis Neurological Exam: Awake and alert and does not appear to have any focal deficits - Labs CBC & Chem 7: 04/26/18 04:25 04/26/18 04:25 Labs: Abnormal Lab Results - Last 24 Hours (Table) 04/25/18 04/25/18 04/25/18 Range/Units 11:56 18:04 23:59 WBC (3.8-10.6) k/uL Hgb (11.4-16.0) gm/dL Neutrophils # (1.3-7.7) k/uL Lymphocytes # (1.0-4.8) k/uL ABG pCO2 (35-45) mmHg ABG HCO3 (21-25) mmol/L ABG Total CO2 (19-24) mmol/L ABG O2 Saturation (94-97) % Sodium (137-145) mmol/L Chloride (98-107) mmol/L Carbon Dioxide (22-30) mmol/L BUN (7-17) mg/dL Creatinine (0.52-1.04) mg/dL Glucose (74-99) mg/dL POC Glucose (mg/dL) 146 H 147 H 181 H (75-99) mg/dL 04/26/18 04/26/18 04/26/18 Range/Units 04:25 04:25 05:01 WBC 14.7 H (3.8-10.6) k/uL Hgb 11.3 L (11.4-16.0) gm/dL Neutrophils # 13.9 H (1.3-7.7) k/uL Lymphocytes # 0.3 L (1.0-4.8) k/uL ABG pCO2 (35-45) mmHg ABG HCO3 (21-25) mmol/L ABG Total CO2 (19-24) mmol/L ABG O2 Saturation (94-97) % Sodium 134 L (137-145) mmol/L Chloride 81 L (98-107) mmol/L Carbon Dioxide 50 H* (22-30) mmol/L BUN 20 H (7-17) mg/dL Creatinine 0.30 L (0.52-1.04) mg/dL Glucose 166 H (74-99) mg/dL POC Glucose (mg/dL) 160 H (75-99) mg/dL 04/26/18 Range/Units 05:35 WBC (3.8-10.6) k/uL Hgb (11.4-16.0) gm/dL Neutrophils # (1.3-7.7) k/uL Lymphocytes # (1.0-4.8) k/uL ABG pCO2 75 H* (35-45) mmHg ABG HCO3 51 H* (21-25) mmol/L ABG Total CO2 53 H (19-24) mmol/L ABG O2 Saturation 97.8 H (94-97) % Sodium (137-145) mmol/L Chloride (98-107) mmol/L Carbon Dioxide (22-30) mmol/L BUN (7-17) mg/dL Creatinine (0.52-1.04) mg/dL Glucose (74-99) mg/dL POC Glucose (mg/dL) (75-99) mg/dL Assessment and Plan Plan: Acute hypoxic/hypercapnic respiratory failure - on mechanical ventilation, patient underwent tracheostomy and PEG tube placement Acute COPD exacerbation Hypotension - secondary to Sepsis- off of pressors currently Hyponatremia History of pneumothorax and wedge resection in the past History of bilateral mastectomy with breast reconstructive surgery Nicotine dependence Moderate protein calorie malnutrition Roseline albicans in the sputum PLAN: Continue with mechanical ventilation and IV steroids. Antibiotics in the form of Zosyn, vancomycin was discontinued. So far cultures are negative
[2018-04-26] MEDS: ACETAMINOPHEN TAB 325 MG TAB PO PRN (11:25)
[2018-04-26 11:52] LABS: Glucose,Whole Blood 147 mg/dL (75-99)
[2018-04-26] MEDS: guaiFENesin 600 MG TABLET.ER PO SCH (13:20)
[2018-04-26 17:33] LABS: Glucose,Whole Blood 142 mg/dL (75-99)
[2018-04-26] MEDS: DEXTROSE 5% IN WATER 1,000 ML IV SCH (17:35)
[2018-04-26] MEDS: SENNOSIDES 8.6 MG TAB PO SCH (20:11)
[2018-04-26] MEDS ORDERED: LORazepam 2 MG/ML INJ IV PRN (22:05)
[2018-04-27] MEDS: methylPREDNISolone SOD SUCCI 40 MG/ML 1 ML VIAL IV SCH ×4 (00:03→18:33)
[2018-04-27] MEDS: PIPERACILLIN-TAZOBACTAM 3.375 GM in DEXTROSE/WATER 1 50ML.BAG IVPB SCH ×3 (00:04→15:45)
[2018-04-27 00:13] LABS: Glucose,Whole Blood 175 mg/dL (75-99)
[2018-04-27] MEDS: INSULIN ASPART 100 UNIT/ML 1 ML 10 ML VIAL SQ SCH ×4 (00:13→18:31)
[2018-04-27] MEDS: IPRATROPIUM-ALBUTEROL 3 ML NEB INHALATION SCH ×5 (03:26→19:36)
[2018-04-27 04:57] LABS: HGB 10.8 gm/dL (11.4-16.0); MCH 29.5 pg (25.0-35.0); MCHC 31.7 g/dL (31.0-37.0); MCV 93.1 fL (80.0-100.0); Mean Platelet Volume 7.5; Platelet Count 323 k/uL (150-450); RBC 3.65 m/uL (3.80-5.40); RDW 13.2 % (11.5-15.5); WBC 14.7 k/uL (3.8-10.6)
[2018-04-27 05:01] LABS: Blood Urea Nitrogen 19 mg/dL (7-17); Calcium 8.7 mg/dL (8.4-10.2); Chloride 83 mmol/L (98-107); Glucose 142 mg/dL (74-99); Magnesium 1.9 mg/dL (1.6-2.3); Phosphorus 3.2 mg/dL (2.5-4.5); Potassium 4.5 mmol/L (3.5-5.1); Sodium 135 mmol/L (137-145)
[2018-04-27 05:07] LABS: Anion Gap 4 mmol/L
[2018-04-27 05:13] LABS: Carbon Dioxide 48 mmol/L (22-30)
[2018-04-27 05:24] LABS: ABG Base Excess 27.9 mmol/L; ABG Oxygen Saturation 98.8 % (94-97); ABG PH 7.44 (7.35-7.45); ABG PO2 115 mmHg (83-108); ABG TCO2 54 mmol/L (19-24)
[2018-04-27 05:39] LABS: Glucose,Whole Blood 143 mg/dL (75-99)
[2018-04-27] MEDS: DEXTROSE 5% IN WATER 1,000 ML IV SCH ×2 (05:56→18:30)
[2018-04-27 05:58] LABS: ABG HCO3 52 mmol/L (21-25); ABG PCO2 76 mmHg (35-45)
[2018-04-27] MEDS: MAGNESIUM SULFATE-D5W PMX 1 GM in DEXTROSE/WATER 1 100ML.BAG IVPB SCH ×2 (06:04→07:53)
[2018-04-27] MEDS: FORMOTEROL FUMARATE 20 MCG/2 ML NEBU INHALATION SCH ×2 (07:14→19:36)
[2018-04-27] MEDS: BUDESONIDE 1 MG/2 ML NEBU INHALATION SCH ×2 (07:14→19:36)
--- NOTE | 2018-04-27 07:16 | XR ---
EXAMINATION TYPE: XR chest 1V portable DATE OF EXAM: 04/27/2018 COMPARISON: 04/26/2018 HISTORY: Tracheostomy tube TECHNIQUE: Single frontal view of the chest is obtained. FINDINGS: Tracheostomy tube is stable. Right-sided consolidation stable. Diffuse emphysematous serna es. No pneumothorax. Heart size unchanged. IMPRESSION: Stable right basilar atelectasis or infiltrate. Diffuse COPD.
[2018-04-27] MEDS: ENOXAPARIN 40 MG/0.4 ML SYRINGE SQ SCH (07:54)
[2018-04-27] MEDS: PANTOPRAZOLE 40 MG/10 ML VIAL IV SCH (07:54)
[2018-04-27] MEDS: CHLORHEXIDINE GLUCONATE 15 ML CUP MUCOUS MEM SCH ×2 (07:54→21:21)
[2018-04-27] MEDS: LACTULOSE 20 GM/30 ML CUP PO SCH ×2 (07:54→21:21)
[2018-04-27] MEDS: LORazepam 2 MG/ML INJ IV PRN (08:01)
--- NOTE | 2018-04-27 08:15 | P.PN ---
Subjective Progress Note Date: 04/27/18 Principal diagnosis: Hypoxemic respiratory failure, COPD Progress note dated 04/21/2018 This is a 57-year-old female well-known to me. She was admitted on April 17 intubated on April 19. Currently on the volume assist control mode with a rate of 14 tidal volume 350 FiO2 35% PEEP of 6. Arterial blood gases show a PaO2 of 72 and a PaCO2 of 81 and a pH is 7.36. She is on a saline IV at 75 mL an hour propofol at 50 mics per kilogram per minute and norepinephrine is on hold. No tube feeds have been started as yet. She's had an oral gastric tube in place and an endotracheal tube in place. I've asked the nurses to talk to nutrition about starting tube feeds. In addition to hypoxemic hypercapnic respiratory failure, she has a history of spontaneous pneumothorax in 2006 with previous wedge resection and mechanical pleurodesis breast cancer 2004 with bilateral breast reconstruction and sepsis with septic shock and hypotension. She is also thought to possibly have community-acquired bilateral pneumonia. I have talked to this patient in the past about possible lung transplantation but she wasn't very excited. She was anemic excited to have a evaluation. Microbiology is as far all negative. White count is 15.7 hemoglobin 10.7 hematocrit 34.8 and platelet count 234,000. In addition, sodium 138 potassium 5.1 chloride 91 CO2 45 anion gap to be running creatinine 17 and 0.43. Chest x- rays mostly consistent with hyperinflation. Computed tomography scan of the chest shows diffuse peribronchial cuffing with tree-in-bud opacities as well as diffuse nodular opacities. Progress note dated 04/22/2018 57-year-old female well-known to me. She has a history of severe COPD. She was admitted on April 17 intubated on April 19. She actually has made no progress towards extubation. I've had a series talk with the family yesterday. She likely will end up with a trach and PEG. Currently, we did do a daily eruption of sedation with a spontaneous breathing trial but unfortunately she did very poorly. Her rapid shallow breathing index was well above 105. Tidal volumes are low. Respiratory rates were very high. Her saturations dropped into the 70s. Hence was placed back on the ventilator at the previous settings. Currently, she is on the volume assist control modality with a rate of 14 tidal volume 350 FiO2 35% and a PEEP of 6. Arterial blood gases show a PaO2 of 70 a PaCO2 of 77 and a normal pH is 7.42. She is on propofol at 50 mics per kilogram per minute is saline IV at 75 mL an hour and vital high protein at 10 with a goal of 41 mL an hour. Chest x-ray shows only changes of COPD. I am and have the respiratory therapist pushed endotracheal tube down 1 cm. Progress note dated 04/23/2018 57-year-old female well-known to me. She has a history of severe COPD with an FEV1 that's below 30%. Currently still on the ventilator. She is on the volume assist control mode with a rate of 14, tidal volume 350, FiO2 40%, and PEEP of 6. Arterial blood gases show a PaO2 of 96 a PaCO2 of 87 and a pH of 7.35. She is scheduled for a tracheostomy and PEG tube placement today at 1 PM. Chest x-ray shows a minimal infiltrate in the right lower lobe. She is on a saline IV at 55 mL an hour lactated Ringer's at 20 mL an hour. Tube feedings are off in anticipation of her surgery today. She really has not made any progress towards weaning and extubation. I have had discussions with the family. They understand her poor prognosis. She will have a daily interuption of sedation today. Progress note dated 04/24/2018 57-year-old female well-known to me. She has a history of severe COPD with an FEV1 that is about 23% of predicted. Yesterday, she's had a tracheostomy and PEG tube performed by one of the thoracic surgeons. The patient has been on the volume assist control mode rate of 14 tidal volume 350 FiO2 40% PEEP of 6. Arterial blood gases show a PaO2 of 77 a PaCO2 of 92 and a pH of 7.33. The patient will get a spontaneous breathing trial today. We'll place her on PSV 8 CPAP of 5. She's not on any propofol at this time. The patient will get some additional Lasix today 40 mg IV push. She's on a D5W IV at 60 mL an hour. Tube feeds are currently on hold given the recent PEG tube placement. She is much more awake and alert today. She looks well. Overall prognosis O is very guarded. Chest x-ray showed appears to show a minimal infiltrate in the right lower lobe. White count is 17.4 hemoglobin 10.8 hematocrit 35.5 and platelet count 328,000. Sodium 141 potassium 4.8 chloride 90 CO2 46 BUN and creatinine were 29 and 0.4. Progress note dated 04/25/2018 57-year-old female well-known to me. She has history of severe stage IV COPD with an FEV1 that is 23% of predicted. 2 days ago, on the , she had a tracheostomy and PEG tube performed by one of the thoracic surgeons. Yesterday she spent about an hour on pressure support and CPAP. She apparently got anxious according to the nurses. Today, we put her back on PSV 8 CPAP of 5. So far she is doing well. Her ventilator settings when she is not on the pressor support include the volume assist control mode rate of 14, tidal volume 350, FiO2 40% and PEEP of 5. Arterial blood gases show a PaO2 of 80 a PaCO2 of 86 and a pH that is normal at 7.42. She's getting dextrose and water at 60 mL an hour and vital AF 1.2 at 25 mL an hour with a goal of 47 mL an hour. Chest x -ray shows a minimal infiltrate right lower lobe. Yesterday we gave her some Lasix and she seemed to diuresis well. Today she looks much happier with a smile on her face and she has much less edema and anasarca. So far all her culture data is negative. Her sister is at the bedside. Progress note dated 04/26/2018 57-year-old female well-known to me. She has a history of severe, stage IV COPD with an FEV1 that is 23% of predicted. She had a tracheostomy and PEG tube placed 3 days ago on the . Yesterday, she spent about 12 hours on PSV/ CPAP 8 and 5 respectively. She seems to be doing relatively well and will be placed back on PSV and CPAP today. Her ventilator settings overnight included volume assist control mode with a rate of 14, tidal volume 350, FiO2 40% and PEEP of 5. The patient seems awake and alert. Chest x-ray stable. Showing a minimal infiltrate right lower lobe. Microbiology is still on negative. There was some yeast in the afternoon. Likely just a contaminant or colonizer. White count is 14.7, hemoglobin 11.3 and platelet count is normal. Arterial blood gases show a PaO2 of 86 a PaCO2 of 75. PH is 7.44. The patient's sodium was 134 potassium 4.5 chloride is 81 CO2 50 and 9 Normal and BUN and creatinine were 20 and 0.3 respectively. The patient remains on Cleveprex at 8 mg an hour , D5W at 60 mL an hour, and vital AF 1.2 at 47 which is goal. Progress note dated 04/27/2018 57-year-old female well-known to me. She has severe stage IV COPD with an FEV1 that is 23% of predicted. She is status post tracheostomy and PEG tube placement on April 23. The patient has spent a number of hours on PSV 5 CPAP at 85 and yesterday spent some time on trach collar. We will resume some of the weaning again today. The patient's vent settings include the volume assist control mode rate of 14, tidal volume 350, FiO2 40% to be dropped to 35% and PEEP of 5. The patient's blood gases show a PaO2 of 1:15 PaCO2 of 76 and a pH which is basically normal at 7.44. She remains on a D5W IV at 60 mL an hour and tube feeds with vital AF at a goal of 47. Today we will KVO her IV. Chest x-ray continues to show a stable right basilar infiltrate. Microbiology remained negative. Lab data includes a white count of 14.7 hemoglobin 10.8 sodium 135 potassium 4.5 chloride 83 CO2 48 and a normal anion gap and a BUN and creatinine of 19 and 0.3 respectively. Objective - Vital Signs Vital signs: Vital Signs Temp 97.6 F 04/27/18 04:00 Pulse 106 H 04/27/18 07:55 Resp 18 04/27/18 06:00 BP 93/61 04/27/18 06:00 Pulse Ox 98 04/27/18 06:00 Intake & Output 04/26/18 04/27/18 04/27/18 18:59 06:59 18:59 Intake Total 5694.614 1699.467 150 Output Total 1860 1095 140 Balance -356.833 575.467 10 Weight 58.9 kg Intake: IV 806.0 843.5 103 Dextrose 5% in Water 1, 720 720 000 ml @ 60 mls/hr IV . [id number] [facility] Rx#:[id number] Magnesium Sulfate-D5w Pmx 100 1 gm In Dextrose/Water 1 100ml.bag @ 100 mls/hr IVPB Q1H [facility] Rx#: [id number] Piperacillin-Tazobactam 3 50.0 87.5 .375 gm In Dextrose/Water 1 50ml.bag @ 12.5 mls/hr IVPB Q8HR [facility] Rx#: [id number] o,9 for pressure bag 36 36 3 Intake, IV Titration 53.167 31.967 Amount Clevidipine Butyrate 25 53.167 31.967 mg In Empty Bag 1 bag @ 1 MG/HR 2 mls/hr IV .Q24H [facility] Rx#:[id number] Tube Feeding 554 705 47 Other 90 90 Output: Urine 1860 1095 140 Other: Voiding Method Indwelling Catheter Indwelling Catheter ABP, PAP, CO, CI - Last Documented Arterial Blood Pressure 108/55 - Exam No acute distress, the patient is awake and alert. She is smiling. She seems comfortable on PSV 8/CPAP 5. HEENT examination is grossly unremarkable. Mucous membranes are moist. No oral lesions. The patient has a midline tracheostomy tube. Neck supple. Full range of motion. No adenopathy thyromegaly or neck vein distention. Cardiovascular examination reveals regular rhythm rate. S1-S2 normal. No S3 or S4. No discernible murmur noted. Lungs reveal clear breath sounds. Her sounds are equal bilaterally. A few scattered rhonchi noted bilaterally. Abdomen soft bowel sounds are heard. No masses or tenderness. Fresh PEG tube is noted. Extremities are intact. No cyanosis clubbing or edema. Skin is without rash or lesion. Neurologic examination is brief but nonfocal. - Labs CBC & Chem 7: 04/27/18 04:00 04/27/18 04:00 Labs: Abnormal Lab Results - Last 24 Hours (Table) 04/26/18 04/26/18 04/27/18 Range/Units 11:50 17:28 00:09 WBC (3.8-10.6) k/uL RBC (3.80-5.40) m/uL Hgb (11.4-16.0) gm/dL ABG pCO2 (35-45) mmHg ABG pO2 (83-108) mmHg ABG HCO3 (21-25) mmol/L ABG Total CO2 (19-24) mmol/L ABG O2 Saturation (94-97) % Sodium (137-145) mmol/L Chloride (98-107) mmol/L Carbon Dioxide (22-30) mmol/L BUN (7-17) mg/dL Creatinine (0.52-1.04) mg/dL Glucose (74-99) mg/dL POC Glucose (mg/dL) 147 H 142 H 175 H (75-99) mg/dL 04/27/18 04/27/18 04/27/18 Range/Units 04:00 04:00 05:23 WBC 14.7 H (3.8-10.6) k/uL RBC 3.65 L (3.80-5.40) m/uL Hgb 10.8 L (11.4-16.0) gm/dL ABG pCO2 76 H* (35-45) mmHg ABG pO2 115 H (83-108) mmHg ABG HCO3 52 H* (21-25) mmol/L ABG Total CO2 54 H (19-24) mmol/L ABG O2 Saturation 98.8 H (94-97) % Sodium 135 L (137-145) mmol/L Chloride 83 L (98-107) mmol/L Carbon Dioxide 48 H* (22-30) mmol/L BUN 19 H (7-17) mg/dL Creatinine 0.38 L (0.52-1.04) mg/dL Glucose 142 H (74-99) mg/dL POC Glucose (mg/dL) (75-99) mg/dL 04/27/18 Range/Units 05:37 WBC (3.8-10.6) k/uL RBC (3.80-5.40) m/uL Hgb (11.4-16.0) gm/dL ABG pCO2 (35-45) mmHg ABG pO2 (83-108) mmHg ABG HCO3 (21-25) mmol/L ABG Total CO2 (19-24) mmol/L ABG O2 Saturation (94-97) % Sodium (137-145) mmol/L Chloride (98-107) mmol/L Carbon Dioxide (22-30) mmol/L BUN (7-17) mg/dL Creatinine (0.52-1.04) mg/dL Glucose (74-99) mg/dL POC Glucose (mg/dL) 143 H (75-99) mg/dL Assessment and Plan Assessment: Assessment Hypoxemic and Hypercapnic Respiratory Failure Secondary to His Very Severe COPD , Status Post Intubation and Mechanical Ventilation, with multiple attempts at spontaneous breathing trials following daily interuption of sedation, which were unsuccessful. Postop day #4, status post tracheostomy and PEG tube placement History of Severe Emphysema, stage IV, with an FEV1 that is less than 30% of predicted. Possible Community-Acquired Pneumonia, right lower lobe. History of Spontaneous Pneumothorax in 2006 with Apical Bleb Resection and Mechanical Pleurodesis Breast Cancer, 2004, Status Post Bilateral Breast Reconstruction Hypotension, Resolved, Secondary to Sepsis Anticipated tracheostomy and PEG tube placement on April 23. Plan: Plan dated 04/21/2018 The patient is currently on the ventilator. She is currently being sedated sedated with propofol. The norepinephrine has been turned off. We will start feedings today. Gases are reasonable. Prognosis is poor. The poor lady may end up with a tracheostomy and PEG tube. I will deftly have discussions with the family. I did offer patient the previous evaluation for lung transplantation and every 4 but the patient refuses. This is her first episode of acute and severe respiratory failure. Plan dated 04/22/2018 The patient was given a daily eruption of sedation with a spontaneous breathing trial. As mentioned above, she felt very miserably. White count is 11.6 and 1110.3 hematocrit 33.1 and platelet count is normal. Sodium is 139 potassium 4.1 chloride is 89 CO2 48 year and crackles were 25 and 0.40. The patient's currently receiving all appropriate medications including nebulizer treatments antibiotics and steroids. Likely she will need a tracheostomy and PEG tube. We 'll ask one of her thoracic surgeons to contemplate that. Additional recommendations and suggestions are forthcoming. Prognosis is very guarded. Medications labs and x-rays all reviewed. Critical care time 38 minutes. Plan dated 04/23/2018 The patient will get a daily interruption of sedation. No attempts at weaning today. Vent settings and blood gases are reasonable. Tracheostomy and PEG tube placement today at 1 PM. Chest x-ray shows a mild right lower lobe infiltrate. Medications labs and x-rays are reviewed. I will have further discussions with the family. Prognosis is guarded. Additional recommendations and suggestions are forthcoming. White count 10.4, hemoglobin 9.7, hematocrit 31.5, and platelet count 224,000. Sodium potassium are normal. Chloride is 94 and CO2 49. BUN and creatinine were 28 and 0.4. Thus far, microbiology all negative. Critical care time 36 minutes Plan dated 04/24/2018 The patient is postop day #1 status post tracheostomy and PEG tube placement. She's not on any sedation at the current time. She does receive some when necessary narcotic. She seems much more awake and alert. Arterial blood gases and that settings were noted. The patient will be given a trial of PSV 8 CPAP of 5. We'll make sure that she does not fatigue. Likely she'll end up back on the ventilator and nighttime. Additional recommendations and suggestions are forthcoming. Labs x-rays a medications are all reviewed. Critical care time 32 minutes Plan dated 04/25/2018 The patient is postop day #2 status post tracheostomy and PEG tube placement. She did not do very well yesterday on PSV/CPAP lasting only about 1 hour. The nurses feel like maybe she had a bit anxious. Sisters at the bedside. She is ready back on pressure support this morning. She is on her tube feeds for nourishment. All her culture data is negative. The sister will limit visitors today. She seemed to be more comfortable today. She did have a significant diuresis after 40 mg of Lasix yesterday. Additional recommendations and suggestions are forthcoming. Prognosis is guarded given her severe chronic lung disease. Critical care time 33 minutes Plan dated 04/26/2018 The patient is postop day #3, status post tracheostomy and PEG tube placement. She didn't 12 hours of PSV and CPAP yesterday. Doing much better. Chest x-ray still shows a small infiltrate at the right base. Microbiology is negative. Labs x-rays a medications are all reviewed. We may attempt a trach collar today. I've been honest with her and the family. Prognosis is guarded. Again , labs x-rays a medications are all reviewed. Critical care time 34 minutes Plan dated 04/27/2018 The patient is postop day #4 status post tracheostomy and PEG tube placement. She remains on tube feeds. Again today we'll attempt additional weaning both using PSV and CPAP as well as trach collar. She did reasonably well yesterday. She does get a bit anxious. Chest x-ray continues to show a minimal right basilar infiltrate. Labs all look good. Microbiology as all negative. We'll continue to follow closely. Prognosis is guarded. I could see this patient going to select specialty later this week should she not show any improvement. Critical care time 35 minutes Time with Patient: Greater than 30
[2018-04-27 12:08] LABS: Glucose,Whole Blood 130 mg/dL (75-99)
--- NOTE | 2018-04-27 12:19 | P.PN ---
Subjective 57-year-old female with history of severe end-stage COPD O2 dependent ( FEV1 is in the range of 26% at best, FEV1/FVC is 41%) came in with a few days' history of increased shortness of breath, cough, cough is productive with whitish phlegm , some wheezing, no chest pain, no fever, no chills, no hemoptysis. Patient normally sees Dr. Henderson for her COPD, and her primary care physician is Dr. Golden. Patient was just discharged about 6 days ago from [facility] when she was admitted initially with a similar episode of COPD exacerbation and tracheobronchitis. Patient had previous screening for alpha- 1 antitrypsin deficiency, and she was told it was negative by Dr. Henderson. Chest x-ray in the ER showed no evidence of active disease, there was hyperinflation consistent with COPD. She is being treated for COPD exacerbation currently. On 04/19/2018 - patient has been lying in bed and appears to be in mild respiratory distress. Patient is currently on 5 L of oxygen via nasal cannula saturating barely at 90%. As per the nursing staff report patient has been like this since morning and she has not been getting her breathing treatments . She is also on IV Solu-Medrol and antibiotics in the form of Zosyn. 04/20/2018- last night patient's respiration became labored so patient was placed on BiPAP for a few minutes but could not tolerate it and her clinical status deteriorated and rapid response team was called. She was then intubated around 6:30 PM last night. She was on Zosyn, vancomycin and doxycycline have been added to her antibiotics. Sputum cultures and blood cultures were also ordered. Patient dropped her blood pressure for which she was started on Levophed.She is currently on a ventilator. On 04/21/18 - patient remained sedated and is being mechanically ventilated. She is off of Levophed. No acute overnight events reported by nursing staff. 04/22/2018 Patient failed weaning trial today. 04/23/2018 no significant prominent compared to yesterday regarding her respiratory status is up with pulmonology dictation for further details patient appears to have failed a weaning trial event today. 04/24/2018 Patient underwent tracheostomy and PEG tube placement. 04/25/2018 Patient tolerated spontaneous breathing very well today patient's abdomen is distended, ordered medications for constipation no overnight events. 04/26/2018 no overnight events patient tolerated trach collar for more than 12 hours as today. 04/27/2018 No significant overnight events Objective - Vital Signs Vital signs: Vital Signs Temp 98.3 F 04/27/18 08:00 Pulse 106 H 04/27/18 11:23 Resp 24 04/27/18 11:00 BP 108/59 04/27/18 11:00 Pulse Ox 98 04/27/18 11:00 Intake & Output 04/26/18 04/27/18 04/27/18 18:59 06:59 18:59 Intake Total 5160.923 9413.467 730.0 Output Total 1860 1095 665 Balance -356.833 575.467 65.0 Weight 58.9 kg Intake: IV 806.0 843.5 388.0 Dextrose 5% in Water 1, 720 720 120 000 ml @ 20 mls/hr IV . Q24H [facility] Rx#:[id number] Magnesium Sulfate-D5w Pmx 200 1 gm In Dextrose/Water 1 100ml.bag @ 100 mls/hr IVPB Q1H [facility] Rx#: [id number] Piperacillin-Tazobactam 3 50.0 87.5 50.0 .375 gm In Dextrose/Water 1 50ml.bag @ 12.5 mls/hr IVPB Q8HR [facility] Rx#: [id number] o,9 for pressure bag 36 36 18 Intake, IV Titration 53.167 31.967 Amount Clevidipine Butyrate 25 53.167 31.967 mg In Empty Bag 1 bag @ 1 MG/HR 2 mls/hr IV .Q24H [facility] Rx#:[id number] Tube Feeding 554 705 282 Other 90 90 60 Output: Urine 1860 1095 665 Other: Voiding Method Indwelling Catheter Indwelling Catheter Indwelling Catheter ABP, PAP, CO, CI - Last Documented Arterial Blood Pressure 134/77 - Exam Physical Exam: Patient is on ventilatory support intake alert off pressor support has a tracheostomy and PEG tube placement Head: Atraumatic, normocephalic. Patient had a tracheostomy today HEENT:Neck is supple.No neck masses. No thyromegaly. Chest: Extremely diminished breath sound bilaterally, few wheezes bilaterally Cardiac Exam: Normal S1 and S2, no S3 gallop, no murmur. Abdomen: Soft, nontender, no megaly, no rebound, no guarding, normal bowel sounds. PEG tube in place patient will be initiated on PEG tube feedings today Extremities: No clubbing, no edema, no cyanosis Neurological Exam: Awake and alert and does not appear to have any focal deficits - Labs CBC & Chem 7: 04/27/18 04:00 04/27/18 04:00 Labs: Abnormal Lab Results - Last 24 Hours (Table) 04/26/18 04/27/18 04/27/18 Range/Units 17:28 00:09 04:00 WBC (3.8-10.6) k/uL RBC (3.80-5.40) m/uL Hgb (11.4-16.0) gm/dL ABG pCO2 (35-45) mmHg ABG pO2 (83-108) mmHg ABG HCO3 (21-25) mmol/L ABG Total CO2 (19-24) mmol/L ABG O2 Saturation (94-97) % Sodium 135 L (137-145) mmol/L Chloride 83 L (98-107) mmol/L Carbon Dioxide 48 H* (22-30) mmol/L BUN 19 H (7-17) mg/dL Creatinine 0.38 L (0.52-1.04) mg/dL Glucose 142 H (74-99) mg/dL POC Glucose (mg/dL) 142 H 175 H (75-99) mg/dL 04/27/18 04/27/18 04/27/18 Range/Units 04:00 05:23 05:37 WBC 14.7 H (3.8-10.6) k/uL RBC 3.65 L (3.80-5.40) m/uL Hgb 10.8 L (11.4-16.0) gm/dL ABG pCO2 76 H* (35-45) mmHg ABG pO2 115 H (83-108) mmHg ABG HCO3 52 H* (21-25) mmol/L ABG Total CO2 54 H (19-24) mmol/L ABG O2 Saturation 98.8 H (94-97) % Sodium (137-145) mmol/L Chloride (98-107) mmol/L Carbon Dioxide (22-30) mmol/L BUN (7-17) mg/dL Creatinine (0.52-1.04) mg/dL Glucose (74-99) mg/dL POC Glucose (mg/dL) 143 H (75-99) mg/dL 04/27/18 Range/Units 12:06 WBC (3.8-10.6) k/uL RBC (3.80-5.40) m/uL Hgb (11.4-16.0) gm/dL ABG pCO2 (35-45) mmHg ABG pO2 (83-108) mmHg ABG HCO3 (21-25) mmol/L ABG Total CO2 (19-24) mmol/L ABG O2 Saturation (94-97) % Sodium (137-145) mmol/L Chloride (98-107) mmol/L Carbon Dioxide (22-30) mmol/L BUN (7-17) mg/dL Creatinine (0.52-1.04) mg/dL Glucose (74-99) mg/dL POC Glucose (mg/dL) 130 H (75-99) mg/dL Assessment and Plan Plan: Acute hypoxic/hypercapnic respiratory failure - on mechanical ventilation, patient underwent tracheostomy and PEG tube placement patient is tolerating spontaneous breathing or BiPAP most of the day Acute COPD exacerbation Hypotension - secondary to Sepsis-which resolved now Hyponatremia History of pneumothorax and wedge resection in the past History of bilateral mastectomy with breast reconstructive surgery Nicotine dependence Moderate protein calorie malnutrition Roseline albicans in the sputum PLAN: Continue with mechanical ventilation and IV steroids. Antibiotics in the form of Zosyn. So far cultures are negative
[2018-04-27 18:29] LABS: Glucose,Whole Blood 109 mg/dL (75-99)
[2018-04-27] MEDS: SENNOSIDES 8.6 MG TAB PO SCH (21:22)
[2018-04-28] MEDS: IPRATROPIUM-ALBUTEROL 3 ML NEB INHALATION SCH ×6 (00:14→19:50)
[2018-04-28 00:27] LABS: Glucose,Whole Blood 134 mg/dL (75-99)
[2018-04-28] MEDS: PIPERACILLIN-TAZOBACTAM 3.375 GM in DEXTROSE/WATER 1 50ML.BAG IVPB SCH ×2 (00:27→08:12)
[2018-04-28] MEDS: methylPREDNISolone SOD SUCCI 40 MG/ML 1 ML VIAL IV SCH ×5 (00:27→23:55)
[2018-04-28] MEDS: INSULIN ASPART 100 UNIT/ML 1 ML 10 ML VIAL SQ SCH ×5 (00:27→23:54)
[2018-04-28] MEDS: ACETAMINOPHEN TAB 325 MG TAB PO PRN (04:19)
[2018-04-28 04:32] LABS: ABG Base Excess 26.7 mmol/L; ABG Oxygen Saturation 98.3 % (94-97); ABG PH 7.43 (7.35-7.45); ABG PO2 104 mmHg (83-108); ABG TCO2 53 mmol/L (19-24)
[2018-04-28 04:34] LABS: ABG HCO3 51 mmol/L (21-25); ABG PCO2 77 mmHg (35-45)
[2018-04-28 04:57] LABS: HCT 35.4 % (34.0-46.0); HGB 11.2 gm/dL (11.4-16.0); MCHC 31.6 g/dL (31.0-37.0); MCV 91.8 fL (80.0-100.0); Platelet Count 404 k/uL (150-450); RBC 3.85 m/uL (3.80-5.40); RDW 12.7 % (11.5-15.5); WBC 21.3 k/uL (3.8-10.6)
--- NOTE | 2018-04-28 05:09 | PN ---
PROGRESS NOTE DATE OF SERVICE: 04/27/2018 REASON FOR FOLLOWUP: Pneumonia. INTERVAL HISTORY: The patient is afebrile. She is currently breathing comfortably. Denies having any chest pain. No shortness of breath or cough. Currently on the vent. Tolerating her tube feeds. PHYSICAL EXAMINATION: On examination, blood pressure 144/86, pulse of 120, temperature of 99. She is 94% on 35% trach collar. General description is a middle aged female, lying in bed in no distress. RESPIRATORY SYSTEM: Unlabored breathing, clear to auscultation anteriorly. HEART: S1, S2. Regular rate and rhythm. ABDOMEN: Soft, no tenderness. LABS: Hemoglobin 10.8, white count 14.7, BUN of 19, creatinine 0.38. DIAGNOSTIC IMPRESSION AND PLAN: Patient with acute respiratory failure multifactorial with a component of chronic obstructive pulmonary disease on this admission as well as component of possible pneumonia, currently on Zosyn, may continue for course. Continue with supportive care. MMODL / IJN: [id number] /
[2018-04-28 05:12] LABS: Blood Urea Nitrogen 24 mg/dL (7-17); Calcium 8.8 mg/dL (8.4-10.2); Chloride 84 mmol/L (98-107); Glucose 148 mg/dL (74-99); Phosphorus 3.2 mg/dL (2.5-4.5); Potassium 5.2 mmol/L (3.5-5.1); Sodium 134 mmol/L (137-145)
[2018-04-28 05:17] LABS: Anion Gap 3 mmol/L
[2018-04-28 05:22] LABS: Carbon Dioxide 47 mmol/L (22-30)
[2018-04-28 06:25] LABS: Glucose,Whole Blood 140 mg/dL (75-99)
--- NOTE | 2018-04-28 07:07 | XR ---
EXAMINATION TYPE: XR chest 1V portable DATE OF EXAM: 04/28/2018 Comparison: 04/27/2018 Clinical History: 57-year-old female follow-up Pneumonia Findings: Tracheostomy cannula remains in place. Heart normal size. Hyperinflation suggests underlying emphysem a. There is right apical pleural-parenchymal scarring staple lines from prior resection. Residual pat dorys right basilar density remains. No significant pleural effusion. Impression: COPD with scarring and postsurgical change at the right apex. Similar mild patchy atelectasis or inf iltrate at the right base.
[2018-04-28] MEDS: BUDESONIDE 1 MG/2 ML NEBU INHALATION SCH ×2 (07:44→19:50)
[2018-04-28] MEDS: FORMOTEROL FUMARATE 20 MCG/2 ML NEBU INHALATION SCH ×2 (07:44→19:50)
[2018-04-28] MEDS: LACTULOSE 20 GM/30 ML CUP PO SCH ×2 (08:13→21:12)
[2018-04-28] MEDS: ENOXAPARIN 40 MG/0.4 ML SYRINGE SQ SCH (08:13)
[2018-04-28] MEDS: PANTOPRAZOLE 40 MG/10 ML VIAL IV SCH (08:13)
[2018-04-28] MEDS: CHLORHEXIDINE GLUCONATE 15 ML CUP MUCOUS MEM SCH ×2 (08:13→21:12)
[2018-04-28] MEDS ORDERED: SODIUM CHLORIDE 0.9% 1,000 ML IV SCH (10:45)
[2018-04-28] MEDS ORDERED: SODIUM CHLORIDE 0.9% 1,000 ML IV ONE (10:47)
--- NOTE | 2018-04-28 10:51 | P.PN ---
Subjective 57-year-old female with history of severe end-stage COPD O2 dependent ( FEV1 is in the range of 26% at best, FEV1/FVC is 41%) came in with a few days' history of increased shortness of breath, cough, cough is productive with whitish phlegm , some wheezing, no chest pain, no fever, no chills, no hemoptysis. Patient normally sees Dr. Henderson for her COPD, and her primary care physician is Dr. Golden. Patient was just discharged about 6 days ago from [facility] when she was admitted initially with a similar episode of COPD exacerbation and tracheobronchitis. Patient had previous screening for alpha- 1 antitrypsin deficiency, and she was told it was negative by Dr. Henderson. Chest x-ray in the ER showed no evidence of active disease, there was hyperinflation consistent with COPD. She is being treated for COPD exacerbation currently. On 04/19/2018 - patient has been lying in bed and appears to be in mild respiratory distress. Patient is currently on 5 L of oxygen via nasal cannula saturating barely at 90%. As per the nursing staff report patient has been like this since morning and she has not been getting her breathing treatments . She is also on IV Solu-Medrol and antibiotics in the form of Zosyn. 04/20/2018- last night patient's respiration became labored so patient was placed on BiPAP for a few minutes but could not tolerate it and her clinical status deteriorated and rapid response team was called. She was then intubated around 6:30 PM last night. She was on Zosyn, vancomycin and doxycycline have been added to her antibiotics. Sputum cultures and blood cultures were also ordered. Patient dropped her blood pressure for which she was started on Levophed.She is currently on a ventilator. On 04/21/18 - patient remained sedated and is being mechanically ventilated. She is off of Levophed. No acute overnight events reported by nursing staff. 04/22/2018 Patient failed weaning trial today. 04/23/2018 no significant prominent compared to yesterday regarding her respiratory status is up with pulmonology dictation for further details patient appears to have failed a weaning trial event today. 04/24/2018 Patient underwent tracheostomy and PEG tube placement. 04/25/2018 Patient tolerated spontaneous breathing very well today patient's abdomen is distended, ordered medications for constipation no overnight events. 04/26/2018 no overnight events patient tolerated trach collar for more than 12 hours as today. 04/27/2018 No significant overnight events 04/28/2018 Patient is bit dehydrated with tachycardia hyperemic hyponatremia will give him IV fluids at 100 mL/h today and we'll increase the PEG tube feedings and PEG tube free water by 100 mL every 4 hours. patient is bit depressed patient will be started on Paxil . Objective - Vital Signs Vital signs: Vital Signs Temp 99.3 F 04/28/18 08:00 Pulse 110 H 04/28/18 10:00 Resp 28 H 04/28/18 10:00 BP 110/78 04/28/18 10:00 Pulse Ox 95 04/28/18 10:00 Intake & Output 04/27/18 04/28/18 04/28/18 18:59 06:59 18:59 Intake Total 1157.5 493.5 240 Output Total 1165 1100 520 Balance -7.5 -606.5 -280 Weight 59.6 kg 59.6 kg Intake: IV 503.5 305.5 69 0.9NS for pressure bag 36 3 9 Dextrose 5% in Water 1, 180 240 60 000 ml @ 20 mls/hr IV . Q24H [facility] Rx#:[id number] Magnesium Sulfate-D5w Pmx 200 1 gm In Dextrose/Water 1 100ml.bag @ 100 mls/hr IVPB Q1H [facility] Rx#: [id number] Piperacillin-Tazobactam 3 87.5 62.5 .375 gm In Dextrose/Water 1 50ml.bag @ 12.5 mls/hr IVPB Q8HR [facility] Rx#: [id number] Tube Feeding 564 188 141 Other 90 30 Output: Urine 1165 1100 520 Other: Voiding Method Indwelling Catheter Indwelling Catheter Indwelling Catheter ABP, PAP, CO, CI - Last Documented Arterial Blood Pressure 158/95 - Exam Physical Exam: Patient is on ventilatory support intake alert off pressor support has a tracheostomy and PEG tube placement Head: Atraumatic, normocephalic. Patient had a tracheostomy today HEENT:Neck is supple.No neck masses. No thyromegaly. Chest: Extremely diminished breath sound bilaterally, few wheezes bilaterally Cardiac Exam: Normal S1 and S2, no S3 gallop, no murmur. Patient is bit tachycardic Abdomen: Soft, nontender, no megaly, no rebound, no guarding, normal bowel sounds. PEG tube in place patient will be initiated on PEG tube feedings today Extremities: No clubbing, no edema, no cyanosis Neurological Exam: Awake and alert and does not appear to have any focal deficits - Labs CBC & Chem 7: 04/28/18 04:45 04/28/18 04:45 Labs: Abnormal Lab Results - Last 24 Hours (Table) 04/27/18 04/27/18 04/28/18 Range/Units 12:06 18:27 00:23 WBC (3.8-10.6) k/uL Hgb (11.4-16.0) gm/dL ABG pCO2 (35-45) mmHg ABG HCO3 (21-25) mmol/L ABG Total CO2 (19-24) mmol/L ABG O2 Saturation (94-97) % Sodium (137-145) mmol/L Potassium (3.5-5.1) mmol/L Chloride (98-107) mmol/L Carbon Dioxide (22-30) mmol/L BUN (7-17) mg/dL Creatinine (0.52-1.04) mg/dL Glucose (74-99) mg/dL POC Glucose (mg/dL) 130 H 109 H 134 H (75-99) mg/dL 04/28/18 04/28/18 04/28/18 Range/Units 04:26 04:45 04:45 WBC 21.3 H (3.8-10.6) k/uL Hgb 11.2 L (11.4-16.0) gm/dL ABG pCO2 77 H* (35-45) mmHg ABG HCO3 51 H* (21-25) mmol/L ABG Total CO2 53 H (19-24) mmol/L ABG O2 Saturation 98.3 H (94-97) % Sodium 134 L (137-145) mmol/L Potassium 5.2 H (3.5-5.1) mmol/L Chloride 84 L (98-107) mmol/L Carbon Dioxide 47 H* (22-30) mmol/L BUN 24 H (7-17) mg/dL Creatinine 0.30 L (0.52-1.04) mg/dL Glucose 148 H (74-99) mg/dL POC Glucose (mg/dL) (75-99) mg/dL 04/28/18 Range/Units 06:22 WBC (3.8-10.6) k/uL Hgb (11.4-16.0) gm/dL ABG pCO2 (35-45) mmHg ABG HCO3 (21-25) mmol/L ABG Total CO2 (19-24) mmol/L ABG O2 Saturation (94-97) % Sodium (137-145) mmol/L Potassium (3.5-5.1) mmol/L Chloride (98-107) mmol/L Carbon Dioxide (22-30) mmol/L BUN (7-17) mg/dL Creatinine (0.52-1.04) mg/dL Glucose (74-99) mg/dL POC Glucose (mg/dL) 140 H (75-99) mg/dL Assessment and Plan Plan: Acute hypoxic/hypercapnic respiratory failure - on mechanical ventilation, patient underwent tracheostomy and PEG tube placement patient is tolerating spontaneous breathing or BiPAP most of the day tachycardia secondary to dehydration -Hypervolemic hyponatremia: Patient will be started on IV fluids and PEG tube free water as mentioned above Acute COPD exacerbation Hypotension - secondary to Sepsis-which resolved now Hyponatremia History of pneumothorax and wedge resection in the past History of bilateral mastectomy with breast reconstructive surgery Nicotine dependence Moderate protein calorie malnutrition Roseline albicans in the sputum Deppression: Patient will be started on Paxil PLAN: Continue with mechanical ventilation and IV steroids. Antibiotics in the form of Zosyn. So far cultures are negative
[2018-04-28] MEDS: SODIUM CHLORIDE 0.9% 1,000 ML IV SCH ×2 (11:12→21:13)
--- NOTE | 2018-04-28 12:17 | P.PN ---
Subjective Progress Note Date: 04/28/18 A 57-year-old female patient is being seen in follow-up on 04/28/2018. The patient has advanced COPD with an FEV1 of 23% of predicted. She came in with acute respiratory failure secondary to COPD exacerbation. The patient subsequently went into prolonged ventilator-dependent history failure and she failed to wean. Based on that, the patient had a tracheostomy and PEG tube inserted. The patient is getting daily pressure support mode of ventilation. Yesterday she spent approximately 8 hours on a pressure support of 5 and a PEEP of 5 with an FiO2 of 40%. Subsequently she was switched back to assist control mode at a rate of 14, tidal volume 350 with a PEEP of 5 and the same level of FiO2. Chest x-ray shows hyperinflation and there is no evidence of a pneumonia. The patient has bilateral breast implants. The patient is still receiving tube feeds with vital a half and she is currently at goal. She has passed bowel movements. No abdominal distention. No nausea or vomiting or emesis. Hemodynamically stable. Neurologically awake and alert and she is following commands and answering questions. No significant anxiety. No other significant events over the past 24 hours. Our plan is to continue our weaning efforts. She needs aggressive physical therapy as the patient has motor weakness both in the upper and lower extremity. The plan is also to move this patient for select specialty once we get a clearance from the other facility. The issue I think is the lack of medical insurance at this point. Meanwhile she continues to have her supportive treatment in our ICU. Objective - Vital Signs Vital signs: Vital Signs Temp 99.3 F 04/28/18 08:00 Pulse 104 H 04/28/18 11:57 Resp 28 H 04/28/18 11:00 BP 155/93 04/28/18 11:00 Pulse Ox 95 04/28/18 11:00 Intake & Output 04/27/18 04/28/18 04/28/18 18:59 06:59 18:59 Intake Total 1157.5 493.5 1440 Output Total 1165 1100 590 Balance -7.5 -606.5 850 Weight 59.6 kg 59.6 kg Intake: IV 503.5 305.5 1222 0.9NS for pressure bag 36 3 12 Dextrose 5% in Water 1, 180 240 60 000 ml @ 20 mls/hr IV . Q24H [facility] Rx#:[id number] Magnesium Sulfate-D5w Pmx 200 1 gm In Dextrose/Water 1 100ml.bag @ 100 mls/hr IVPB Q1H [facility] Rx#: [id number] Piperacillin-Tazobactam 3 87.5 62.5 50 .375 gm In Dextrose/Water 1 50ml.bag @ 12.5 mls/hr IVPB Q8HR [facility] Rx#: [id number] Sodium Chloride 0.9% 1, 100 000 ml @ 100 mls/hr IV . Q10H [facility] Rx#:[id number] Sodium Chloride 0.9% 1, 1000 000 ml @ 999 mls/hr IV . Q1H1[facility] Rx#:[id number] Tube Feeding 564 188 188 Other 90 30 Output: Urine 1165 1100 590 Other: Voiding Method Indwelling Catheter Indwelling Catheter Indwelling Catheter ABP, PAP, CO, CI - Last Documented Arterial Blood Pressure 119/101 - Exam No acute distress, the patient is awake and alert. Patient has a #8 [place] tracheostomy tube in place. The patient is awake and alert and responsive and following commands and answering questions appropriately. HEENT examination is grossly unremarkable. Mucous membranes are moist. No oral lesions. The patient has a midline tracheostomy tube. Neck supple. Full range of motion. No adenopathy thyromegaly or neck vein distention. Cardiovascular examination reveals regular rhythm rate. S1-S2 normal. No S3 or S4. No discernible murmur noted. Lungs reveal clear breath sounds. Her sounds are equal bilaterally. A few scattered rhonchi noted bilaterally. Abdomen soft bowel sounds are heard. No masses or tenderness. Fresh PEG tube is noted. Extremities are intact. No cyanosis clubbing or edema. Skin is without rash or lesion. The patient has bilateral breast implants this can be easily palpated on the anterior chest area.Examination of the skin revealed no evidence of significant rashes, suspicious appearing nevi or other concerning lesions. Neurologic examination is brief but nonfocal. The patient is awake and alert and following commands and answering questions. No focal neurological deficit. Motor function is showing some weakness plus/5 in all 4 extremities and this is a symmetrical weakness. No hyperreflexia. - Labs CBC & Chem 7: 04/28/18 04:45 04/28/18 04:45 Labs: Abnormal Lab Results - Last 24 Hours (Table) 04/27/18 04/28/1818 Range/Units 18:27 00:23 04:26 WBC (3.8-10.6) k/uL Hgb (11.4-16.0) gm/dL ABG pCO2 77 H* (35-45) mmHg ABG HCO3 51 H* (21-25) mmol/L ABG Total CO2 53 H (19-24) mmol/L ABG O2 Saturation 98.3 H (94-97) % Sodium (137-145) mmol/L Potassium (3.5-5.1) mmol/L Chloride (98-107) mmol/L Carbon Dioxide (22-30) mmol/L BUN (7-17) mg/dL Creatinine (0.52-1.04) mg/dL Glucose (74-99) mg/dL POC Glucose (mg/dL) 109 H 134 H (75-99) mg/dL 04/28/18 04/28/18 04/28/18 Range/Units 04:45 04:45 06:22 WBC 21.3 H (3.8-10.6) k/uL Hgb 11.2 L (11.4-16.0) gm/dL ABG pCO2 (35-45) mmHg ABG HCO3 (21-25) mmol/L ABG Total CO2 (19-24) mmol/L ABG O2 Saturation (94-97) % Sodium 134 L (137-145) mmol/L Potassium 5.2 H (3.5-5.1) mmol/L Chloride 84 L (98-107) mmol/L Carbon Dioxide 47 H* (22-30) mmol/L BUN 24 H (7-17) mg/dL Creatinine 0.30 L (0.52-1.04) mg/dL Glucose 148 H (74-99) mg/dL POC Glucose (mg/dL) 140 H (75-99) mg/dL Assessment and Plan Plan: Assessment 1 advanced COPD with an FEV1 of 23% at baseline 2 acute on top of chronic hypoxic and hypercapnic respiratory failure, post tracheostomy tube insertion for a long mechanical ventilation and failure to wean. Blood gases from today still showing a component of respirator acidosis which is chronic and well compensated for now 3 history of spontaneous pneumothorax 2007 status post resection of apical bleb and mechanical pleurodesis 4 breast cancer with bilateral mastectomy and breast reconstruction surgery and implants back in 2004 5 enteral feeding via PEG tube for nutritional support 6 hypertension, recovered 7 motor weakness secondary to prolonged ICU stay and mechanical ventilation Plan Aggressive physical therapy. Early mobility if possible. Continue vent support. Continue with pressure support mode of wean. The patient is being given PSV mode of ventilation on a daily basis which she is able to tolerate without any major difficulties. We will prolonge the time of this mode of ventilation on a daily basis. Meanwhile were working up on checking this patient for select specialty for further weaning. Meanwhile, continue the bronchodilators, stopped IV Zosyn as the patient has been treated with IV antibiotics for almost 10 days. Continue the IV Solu-Medrol 40 mg every 6 hours. Lovenox for DVT prophylaxis. Enteral feeding for nutritional support. IV Protonix. We'll continue to follow make further recommendations based on her progress. This is a critically care evaluation was done and 31 minutes. Time with Patient: Greater than 30
[2018-04-28] MEDS: LORazepam 2 MG/ML INJ IV PRN ×2 (13:03→21:55)
[2018-04-28] MEDS: PARoxetine 10 MG TAB PO SCH (13:04)
[2018-04-28 13:17] LABS: Glucose,Whole Blood 125 mg/dL (75-99)
[2018-04-28 17:56] LABS: Glucose,Whole Blood 129 mg/dL (75-99)
[2018-04-28] MEDS: SENNOSIDES 8.6 MG TAB PO SCH (21:12)
[2018-04-28 23:52] LABS: Glucose,Whole Blood 148 mg/dL (75-99)
[2018-04-29] MEDS: IPRATROPIUM-ALBUTEROL 3 ML NEB INHALATION SCH ×7 (00:15→23:53)
--- NOTE | 2018-04-29 00:37 | PN ---
PROGRESS NOTE DATE OF SERVICE: 04/28/2018. REASON FOR FOLLOWUP: Pneumonia. INTERVAL HISTORY: The patient is afebrile. She is currently breathing comfortably, hemodynamically stable. Slowly weaning off the vent. Tolerating tube feed with no significant diarrhea. EXAMINATION: Blood pressure 123/83 with a pulse of 107, temperature 98.3. She is 99% on 40% FiO2. General description is a middle-aged female lying in bed in no distress. RESPIRATORY SYSTEM: Unlabored breathing with decreased at the bases. No wheeze. HEART: S1, S2. Regular rate and rhythm. ABDOMEN: Soft, no tenderness. LABS: Hemoglobin 11.2, white count 21.3 with a BUN of 24, creatinine 0.30. DIAGNOSTIC IMPRESSION AND PLAN: Patient with acute respiratory failure, multifactorial with possible component of pneumonia currently covered with Zosyn and has been discontinued this morning. She did have slight jump in white count, could be related to steroid effect. We will watch her clinical course closely. If spiking fever or any further worsening of white count, may need to reculture her and the patient on antibiotics. Continue supportive care. MMODL / IJN: [id number] /
[2018-04-29] MEDS: HYDROmorphone 0.5 MG/0.5 ML SYRINGE IVP PRN (01:01)
[2018-04-29 04:25] LABS: HCT 30.9 % (34.0-46.0); Hypochromasia Slight; MCH 29.2 pg (25.0-35.0); MCHC 31.3 g/dL (31.0-37.0); MCV 93.5 fL (80.0-100.0); Mean Platelet Volume 7.7; Platelet Count 318 k/uL (150-450); RDW 12.9 % (11.5-15.5); WBC 13.6 k/uL (3.8-10.6)
[2018-04-29 04:31] LABS: Anion Gap 5 mmol/L; Blood Urea Nitrogen 21 mg/dL (7-17); Calcium 8.6 mg/dL (8.4-10.2); Chloride 88 mmol/L (98-107); Glucose 134 mg/dL (74-99); Magnesium 1.9 mg/dL (1.6-2.3); Phosphorus 2.9 mg/dL (2.5-4.5); Sodium 133 mmol/L (137-145)
[2018-04-29 04:41] LABS: HGB 9.7 gm/dL (11.4-16.0)
[2018-04-29 04:51] LABS: ABG PH 7.37 (7.35-7.45)
[2018-04-29 04:52] LABS: ABG Base Excess 18.4 mmol/L; ABG HCO3 46 mmol/L (21-25); ABG PCO2 82 mmHg (35-45); ABG PO2 92 mmHg (83-108)
[2018-04-29 04:52] LABS: Carbon Dioxide 44 mmol/L (22-30)
[2018-04-29 04:53] LABS: ABG Oxygen Saturation 97.2 % (94-97)
[2018-04-29 05:53] LABS: Glucose,Whole Blood 153 mg/dL (75-99)
[2018-04-29] MEDS: INSULIN ASPART 100 UNIT/ML 1 ML 10 ML VIAL SQ SCH ×4 (05:59→23:58)
[2018-04-29] MEDS: methylPREDNISolone SOD SUCCI 40 MG/ML 1 ML VIAL IV SCH ×4 (05:59→23:59)
[2018-04-29] MEDS: SODIUM CHLORIDE 0.9% 1,000 ML IV SCH ×2 (06:00→18:19)
[2018-04-29] MEDS: BUDESONIDE 1 MG/2 ML NEBU INHALATION SCH ×2 (07:21→20:21)
[2018-04-29] MEDS: FORMOTEROL FUMARATE 20 MCG/2 ML NEBU INHALATION SCH ×2 (07:21→20:21)
--- NOTE | 2018-04-29 07:57 | XR ---
EXAMINATION TYPE: XR chest 1V portable DATE OF EXAM: 04/29/2018 CLINICAL HISTORY: Difficulty breathing and pneumonia progress study. TECHNIQUE: Single AP portable upright view of the chest is obtained. COMPARISON: Chest x-ray from one day earlier and older studies FINDINGS: Tracheostomy tube is redemonstrated. Cardiac silhouette size is stable and within normal l imits. Right apical surgical sutures and clips are again seen. There is chronic parenchymal change wi th persistent right basilar opacity. There is no new focal airspace opacity or pneumothorax seen bila terally. No large pleural effusions are seen. Slight underlying S-shaped scoliosis is redemonstrated. IMPRESSION: Overall stable findings, chronic changes with persistent right basilar scarring and/or atelectasis, no new infiltrate is seen.
[2018-04-29] MEDS: LACTULOSE 20 GM/30 ML CUP PO SCH ×2 (08:09→21:08)
[2018-04-29] MEDS: ENOXAPARIN 40 MG/0.4 ML SYRINGE SQ SCH (08:09)
[2018-04-29] MEDS: MAGNESIUM SULFATE-D5W PMX 1 GM in DEXTROSE/WATER 1 100ML.BAG IVPB SCH ×2 (08:09→09:24)
[2018-04-29] MEDS: CHLORHEXIDINE GLUCONATE 15 ML CUP MUCOUS MEM SCH ×2 (08:09→21:08)
[2018-04-29] MEDS: PARoxetine 10 MG TAB PO SCH (08:10)
[2018-04-29] MEDS: PANTOPRAZOLE 40 MG/10 ML VIAL IV SCH (08:10)
--- NOTE | 2018-04-29 09:56 | P.PN ---
Subjective Progress Note Date: 04/29/18 Principal diagnosis: Acute hypoxemic respiratory failure secondary to acute COPD exacerbation This is a 57-year-old female with history of severe end-stage COPD,/emphysema, patient is O2 dependent, prednisone responsive, FEV1 is in the range of 26% at best, FEV1/FVC is 41%, patient has hyperinflation, and a relatively low DLCO consistent with severe emphysema. Patient normally sees Dr. Henderson for her COPD , and her primary care physician is Dr. Golden. Patient was just discharged about 6 days ago from [facility] when she was admitted initially with a similar episode of COPD exacerbation and tracheobronchitis. Has been compliant with her medications, does not smoke, she quit smoking over 10 years ago. Patient had previous screening for alpha-1 antitrypsin deficiency , and she was told it was negative by Dr. Henderson. At any rate patient came in with a few days' history of increased shortness of breath, cough, cough is productive with whitish phlegm, some wheezing, no chest pain, no fever, no chills, no hemoptysis. Denies any headaches, no blurred vision, no dizziness. No nausea no vomiting no abdominal pain, no melena, no hematemesis, no dysuria and no frequency no urgency. Chest x-ray in the ER showed no evidence of active disease, there was hyperinflation consistent with COPD. Patient was admitted, and this consult was initiated. I saw the patient immediately after she arrived to the medical floor. And orders were placed on the chart including bronchodilators, and steroids. On 04/18/2018 patient seen again in follow-up. Not much improved since admission, patient is very dyspneic with conversation, more so with any exertion. Lung sounds are extremely diminished, with faint wheezing in the upper lobes. She has a persistent cough, but it is nonproductive. Her last episode of fever was yesterday at 10:30 in the morning with a picture of 100.3 F. Afebrile today. Blood and urine cultures are pending. Pulse ox on 3 L per nasal cannula is 91%, respirations are shallow. Remains significantly mid in terms of activity tolerance. Patient's serum sodium is improving, currently on IV 0.9 normal saline at a rate of 50 ML per hour, and today's serum sodium is 129 up from 126 from admission. Continue 1500 fluid restriction Progress note dated 04/21/2018 This is a 57-year-old female well-known to me. She was admitted on April 17 intubated on April 19. Currently on the volume assist control mode with a rate of 14 tidal volume 350 FiO2 35% PEEP of 6. Arterial blood gases show a PaO2 of 72 and a PaCO2 of 81 and a pH is 7.36. She is on a saline IV at 75 mL an hour propofol at 50 mics per kilogram per minute and norepinephrine is on hold. No tube feeds have been started as yet. She's had an oral gastric tube in place and an endotracheal tube in place. I've asked the nurses to talk to nutrition about starting tube feeds. In addition to hypoxemic hypercapnic respiratory failure, she has a history of spontaneous pneumothorax in 2006 with previous wedge resection and mechanical pleurodesis breast cancer 2004 with bilateral breast reconstruction and sepsis with septic shock and hypotension. She is also thought to possibly have community-acquired bilateral pneumonia. I have talked to this patient in the past about possible lung transplantation but she wasn't very excited. She was anemic excited to have a evaluation. Microbiology is as far all negative. White count is 15.7 hemoglobin 10.7 hematocrit 34.8 and platelet count 234,000. In addition, sodium 138 potassium 5.1 chloride 91 CO2 45 anion gap to be running creatinine 17 and 0.43. Chest x- rays mostly consistent with hyperinflation. Computed tomography scan of the chest shows diffuse peribronchial cuffing with tree-in-bud opacities as well as diffuse nodular opacities. Progress note dated 04/22/2018 57-year-old female well-known to me. She has a history of severe COPD. She was admitted on April 17 intubated on April 19. She actually has made no progress towards extubation. I've had a series talk with the family yesterday. She likely will end up with a trach and PEG. Currently, we did do a daily eruption of sedation with a spontaneous breathing trial but unfortunately she did very poorly. Her rapid shallow breathing index was well above 105. Tidal volumes are low. Respiratory rates were very high. Her saturations dropped into the 70s. Hence was placed back on the ventilator at the previous settings. Currently, she is on the volume assist control modality with a rate of 14 tidal volume 350 FiO2 35% and a PEEP of 6. Arterial blood gases show a PaO2 of 70 a PaCO2 of 77 and a normal pH is 7.42. She is on propofol at 50 mics per kilogram per minute is saline IV at 75 mL an hour and vital high protein at 10 with a goal of 41 mL an hour. Chest x-ray shows only changes of COPD. I am and have the respiratory therapist pushed endotracheal tube down 1 cm. Progress note dated 04/23/2018 57-year-old female well-known to me. She has a history of severe COPD with an FEV1 that's below 30%. Currently still on the ventilator. She is on the volume assist control mode with a rate of 14, tidal volume 350, FiO2 40%, and PEEP of 6. Arterial blood gases show a PaO2 of 96 a PaCO2 of 87 and a pH of 7.35. She is scheduled for a tracheostomy and PEG tube placement today at 1 PM. Chest x-ray shows a minimal infiltrate in the right lower lobe. She is on a saline IV at 55 mL an hour lactated Ringer's at 20 mL an hour. Tube feedings are off in anticipation of her surgery today. She really has not made any progress towards weaning and extubation. I have had discussions with the family. They understand her poor prognosis. She will have a daily interuption of sedation today. Progress note dated 04/24/2018 57-year-old female well-known to me. She has a history of severe COPD with an FEV1 that is about 23% of predicted. Yesterday, she's had a tracheostomy and PEG tube performed by one of the thoracic surgeons. The patient has been on the volume assist control mode rate of 14 tidal volume 350 FiO2 40% PEEP of 6. Arterial blood gases show a PaO2 of 77 a PaCO2 of 92 and a pH of 7.33. The patient will get a spontaneous breathing trial today. We'll place her on PSV 8 CPAP of 5. She's not on any propofol at this time. The patient will get some additional Lasix today 40 mg IV push. She's on a D5W IV at 60 mL an hour. Tube feeds are currently on hold given the recent PEG tube placement. She is much more awake and alert today. She looks well. Overall prognosis O is very guarded. Chest x-ray showed appears to show a minimal infiltrate in the right lower lobe. White count is 17.4 hemoglobin 10.8 hematocrit 35.5 and platelet count 328,000. Sodium 141 potassium 4.8 chloride 90 CO2 46 BUN and creatinine were 29 and 0.4. Progress note dated 04/25/2018 57-year-old female well-known to me. She has history of severe stage IV COPD with an FEV1 that is 23% of predicted. 2 days ago, on the , she had a tracheostomy and PEG tube performed by one of the thoracic surgeons. Yesterday she spent about an hour on pressure support and CPAP. She apparently got anxious according to the nurses. Today, we put her back on PSV 8 CPAP of 5. So far she is doing well. Her ventilator settings when she is not on the pressor support include the volume assist control mode rate of 14, tidal volume 350, FiO2 40% and PEEP of 5. Arterial blood gases show a PaO2 of 80 a PaCO2 of 86 and a pH that is normal at 7.42. She's getting dextrose and water at 60 mL an hour and vital AF 1.2 at 25 mL an hour with a goal of 47 mL an hour. Chest x -ray shows a minimal infiltrate right lower lobe. Yesterday we gave her some Lasix and she seemed to diuresis well. Today she looks much happier with a smile on her face and she has much less edema and anasarca. So far all her culture data is negative. Her sister is at the bedside. Progress note dated 04/26/2018 57-year-old female well-known to me. She has a history of severe, stage IV COPD with an FEV1 that is 23% of predicted. She had a tracheostomy and PEG tube placed 3 days ago on the . Yesterday, she spent about 12 hours on PSV/ CPAP 8 and 5 respectively. She seems to be doing relatively well and will be placed back on PSV and CPAP today. Her ventilator settings overnight included volume assist control mode with a rate of 14, tidal volume 350, FiO2 40% and PEEP of 5. The patient seems awake and alert. Chest x-ray stable. Showing a minimal infiltrate right lower lobe. Microbiology is still on negative. There was some yeast in the afternoon. Likely just a contaminant or colonizer. White count is 14.7, hemoglobin 11.3 and platelet count is normal. Arterial blood gases show a PaO2 of 86 a PaCO2 of 75. PH is 7.44. The patient's sodium was 134 potassium 4.5 chloride is 81 CO2 50 and 9 Normal and BUN and creatinine were 20 and 0.3 respectively. The patient remains on Cleveprex at 8 mg an hour , D5W at 60 mL an hour, and vital AF 1.2 at 47 which is goal. Progress note dated 04/27/2018 57-year-old female well-known to me. She has severe stage IV COPD with an FEV1 that is 23% of predicted. She is status post tracheostomy and PEG tube placement on April 23. The patient has spent a number of hours on PSV 5 CPAP at 85 and yesterday spent some time on trach collar. We will resume some of the weaning again today. The patient's vent settings include the volume assist control mode rate of 14, tidal volume 350, FiO2 40% to be dropped to 35% and PEEP of 5. The patient's blood gases show a PaO2 of 1:15 PaCO2 of 76 and a pH which is basically normal at 7.44. She remains on a D5W IV at 60 mL an hour and tube feeds with vital AF at a goal of 47. Today we will KVO her IV. Chest x-ray continues to show a stable right basilar infiltrate. Microbiology remained negative. Lab data includes a white count of 14.7 hemoglobin 10.8 sodium 135 potassium 4.5 chloride 83 CO2 48 and a normal anion gap and a BUN and creatinine of 19 and 0.3 respectively. A 57-year-old female patient is being seen in follow-up on 04/28/2018. The patient has advanced COPD with an FEV1 of 23% of predicted. She came in with acute respiratory failure secondary to COPD exacerbation. The patient subsequently went into prolonged ventilator-dependent history failure and she failed to wean. Based on that, the patient had a tracheostomy and PEG tube inserted. The patient is getting daily pressure support mode of ventilation. Yesterday she spent approximately 8 hours on a pressure support of 5 and a PEEP of 5 with an FiO2 of 40%. Subsequently she was switched back to assist control mode at a rate of 14, tidal volume 350 with a PEEP of 5 and the same level of FiO2. Chest x-ray shows hyperinflation and there is no evidence of a pneumonia. The patient has bilateral breast implants. The patient is still receiving tube feeds with vital a half and she is currently at goal. She has passed bowel movements. No abdominal distention. No nausea or vomiting or emesis. Hemodynamically stable. Neurologically awake and alert and she is following commands and answering questions. No significant anxiety. No other significant events over the past 24 hours. Our plan is to continue our weaning efforts. She needs aggressive physical therapy as the patient has motor weakness both in the upper and lower extremity. The plan is also [facility] we get a clearance from the other facility. The issue I think is the lack of medical insurance at this point. Meanwhile she continues to have her supportive treatment in our ICU. On 04/29/2018 patient seen again in the intensive care unit. She is awake, alert, she is currently trached to the event, and she is currently evidence spontaneous breathing trials, and remains on pressure support mode of ventilation with a pressure support of 5 and PEEP of 5 and FiO2 of 40%. Yesterday she trach collar for a total of 6 hours FiO2 of 35%, and tolerated quite well. Patient was placed back on assist control mode of ventilation overnight to rest. This morning she states she slept well last night, she denies any complaints, denies any dyspnea, denies any chest discomfort, denies any chest congestion. Lung sounds are positive for a few scattered rhonchi, some minimal wheezing in the right posterior lower lobe. No fever, no chills, vital signs are stable. Appearance of bilateral upper and lower extremity edema is improving, although she still has some residual edema. Her maintenance IV fluid is 0.9 normal saline at a rate of 100 ML per hour, this was started for attending physician, to gently hydrate the patient. Today's lab work was reviewed, and WBC is down to 13.6, from 21.3, hemoglobin is 9.7, serum sodium is 133, potassium is 5.0, chloride is 88, CO2 is 44, B1 is 21, creatinine 0.30. And clear patient is awake alert, and following commands, and she is in good spirits. Physical therapy is working with the patient, and patient stood up at the bedside yesterday with the physical therapy. Yesterday we discontinued patient's Zosyn, all cultures have been negative except for Roseline albicans in the sputum culture. Patient is tolerating her tube feedings , and she is passing bowel movements. No abdominal distention, abdomen is soft , no nausea or vomiting. Hemodynamically she remains stable, no other significant events over the past 24 hours. She'll work is working on getting the patient approved for transfer to [facility]. Continue Objective - Vital Signs Vital signs: Vital Signs Temp 98.7 F 04/29/18 08:00 Pulse 99 04/29/18 09:00 Resp 25 H 04/29/18 09:00 BP 119/80 04/29/18 09:00 Pulse Ox 95 04/29/18 09:00 Intake & Output 04/28/18 04/29/18 04/29/18 18:59 06:59 18:59 Intake Total 2669 2030 494 Output Total 1255 915 265 Balance 1414 1115 229 Weight 59.6 kg 61.4 kg Intake: IV 1922 1200 300 0.9NS for pressure bag 12 Dextrose 5% in Water 1, 60 000 ml @ 20 mls/hr IV . Q24H [facility] Rx#:[id number] Piperacillin-Tazobactam 3 50 .375 gm In Dextrose/Water 1 50ml.bag @ 12.5 mls/hr IVPB Q8HR [facility] Rx#: [id number] Sodium Chloride 0.9% 1, 800 1200 300 000 ml @ 100 mls/hr IV . Q10H [facility] Rx#:[id number] Sodium Chloride 0.9% 1, 1000 000 ml @ 999 mls/hr IV . Q1H1M ONE Rx#:[id number] Tube Feeding 517 470 94 Other 230 360 100 Output: Urine 1255 915 265 Other: Voiding Method Indwelling Catheter Indwelling Catheter Indwelling Catheter # Voids 0 # Bowel Movements 1 1 ABP, PAP, CO, CI - Last Documented Arterial Blood Pressure 119/101 - Exam Physical Exam: Revealed a 57-year-old female, trached to the vent, currently on pressure-support mode of ventilation, with PSV of 5 CPAP of 5, FiO2 of 40%, awake, alert, in no acute distress. Head: Atraumatic, normocephalic. HEENT:[Neck is supple.] [No neck masses.] [No thyromegaly.] [No JVD.] PERRLA, EOMI, no icterus. Moist mucous membranes. Patient has a midline tracheostomy tube, it is a #8 [place] with a phone call for Chest: [Good air entry noted bilaterally, there are a few scattered rhonchi, and minimal wheezing at right posterior lower lobe.] Cardiac Exam: [Normal S1 and S2, no S3 gallop, no murmur.] Abdomen: [Soft, nontender, no megaly, no rebound, no guarding, normal bowel sounds. PEG tube insertion site is clean dry and intact, and the patient is receiving continuous tube feedings, and is tolerating them very well.] Extremities: [No clubbing, no edema, no cyanosis.] Neurological Exam: [No focal neurologic deficit.] Psychiatric: Normal mood affect and mental status examination. Lymphatics: No lymphadenopathy was appreciated. Musculoskeletal: Normal range of motion, no deformities noted. No focal neurological deficits, motor function showing some weakness chest symmetrical - Labs CBC & Chem 7: 04/29/18 03:52 04/29/18 03:52 Labs: Abnormal Lab Results - Last 24 Hours (Table) 04/28/18 04/28/18 04/28/18 Range/Units 13:12 17:53 23:50 WBC (3.8-10.6) k/uL RBC (3.80-5.40) m/uL Hgb (11.4-16.0) gm/dL Hct (34.0-46.0) % ABG pCO2 (35-45) mmHg ABG HCO3 (21-25) mmol/L ABG O2 Saturation (94-97) % Sodium (137-145) mmol/L Chloride (98-107) mmol/L Carbon Dioxide (22-30) mmol/L BUN (7-17) mg/dL Creatinine (0.52-1.04) mg/dL Glucose (74-99) mg/dL POC Glucose (mg/dL) 125 H 129 H 148 H (75-99) mg/dL 04/29/18 04/29/18 04/29/18 Range/Units 03:52 03:52 04:40 WBC 13.6 H (3.8-10.6) k/uL RBC 3.30 L (3.80-5.40) m/uL Hgb 9.7 L D (11.4-16.0) gm/dL Hct 30.9 L (34.0-46.0) % ABG pCO2 82 H* (35-45) mmHg ABG HCO3 46 H* (21-25) mmol/L ABG O2 Saturation 97.2 H (94-97) % Sodium 133 L (137-145) mmol/L Chloride 88 L (98-107) mmol/L Carbon Dioxide 44 H* (22-30) mmol/L BUN 21 H (7-17) mg/dL Creatinine 0.30 L (0.52-1.04) mg/dL Glucose 134 H (74-99) mg/dL POC Glucose (mg/dL) (75-99) mg/dL 04/29/18 Range/Units 05:52 WBC (3.8-10.6) k/uL RBC (3.80-5.40) m/uL Hgb (11.4-16.0) gm/dL Hct (34.0-46.0) % ABG pCO2 (35-45) mmHg ABG HCO3 (21-25) mmol/L ABG O2 Saturation (94-97) % Sodium (137-145) mmol/L Chloride (98-107) mmol/L Carbon Dioxide (22-30) mmol/L BUN (7-17) mg/dL Creatinine (0.52-1.04) mg/dL Glucose (74-99) mg/dL POC Glucose (mg/dL) 153 H (75-99) mg/dL Assessment and Plan Plan: Assessment: 1 advanced COPD with an FEV1 of 23% at baseline 2 acute on top of chronic hypoxic and hypercapnic respiratory failure, post tracheostomy tube insertion for a long mechanical ventilation and failure to wean. Blood gases from today still showing a component of respirator acidosis which is chronic and well compensated for now 3 history of spontaneous pneumothorax 2007 status post resection of apical bleb and mechanical pleurodesis 4 breast cancer with bilateral mastectomy and breast reconstruction surgery and implants back in 2004 5 enteral feeding via PEG tube for nutritional support 6 hypertension, recovered 7 motor weakness secondary to prolonged ICU stay and mechanical ventilation Plan Continue with pressure support trials, and trach collar with FiO2 of 35% during the day. Continue physical therapy, and mobilizing the patient. Yesterday the patient tolerated 6 hours of trach collar. Placed back on vent at assist control mode for the night. Today's chest x-ray has been reviewed by Dr. Coles, and shows overall stable findings, with chronic changes with persistent right basilar scarring and/or atelectasis, no new infiltrates were seen. Continue nebulized bronchodilators, patient remains afebrile, no chills, no dyspnea, no chest discomfort, no increasing chest congestion. Continue Solu- Medrol at 40 mg every 6 hours, continue GI and DVT prophylaxis, continue enteral feedings. She is awaiting approval for transfer to the long-term [facility] facility for rehabilitation, in the meantime we will continue with supportive care. I performed a history & physical examination of the patient and discussed their management with my nurse practitioner, Destinee Tay. I reviewed the nurse practitioner's note and agree with the documented findings and plan of care. Lung sounds are positive for good air entry bilaterally, with a few scattered rhonchi, minimal wheezing. The findings and the impression was discussed with the patient. I attest to the documentation by the nurse practitioner. Time with Patient: Greater than 30
[2018-04-29 11:58] LABS: Glucose,Whole Blood 131 mg/dL (75-99)
--- NOTE | 2018-04-29 12:52 | P.PN ---
Subjective 57-year-old female with history of severe end-stage COPD O2 dependent ( FEV1 is in the range of 26% at best, FEV1/FVC is 41%) came in with a few days' history of increased shortness of breath, cough, cough is productive with whitish phlegm , some wheezing, no chest pain, no fever, no chills, no hemoptysis. Patient normally sees Dr. Henderson for her COPD, and her primary care physician is Dr. Golden. Patient was just discharged about 6 days ago from [facility] when she was admitted initially with a similar episode of COPD exacerbation and tracheobronchitis. Patient had previous screening for alpha- 1 antitrypsin deficiency, and she was told it was negative by Dr. Henderson. Chest x-ray in the ER showed no evidence of active disease, there was hyperinflation consistent with COPD. She is being treated for COPD exacerbation currently. On 04/19/2018 - patient has been lying in bed and appears to be in mild respiratory distress. Patient is currently on 5 L of oxygen via nasal cannula saturating barely at 90%. As per the nursing staff report patient has been like this since morning and she has not been getting her breathing treatments . She is also on IV Solu-Medrol and antibiotics in the form of Zosyn. 04/20/2018- last night patient's respiration became labored so patient was placed on BiPAP for a few minutes but could not tolerate it and her clinical status deteriorated and rapid response team was called. She was then intubated around 6:30 PM last night. She was on Zosyn, vancomycin and doxycycline have been added to her antibiotics. Sputum cultures and blood cultures were also ordered. Patient dropped her blood pressure for which she was started on Levophed.She is currently on a ventilator. On 04/21/18 - patient remained sedated and is being mechanically ventilated. She is off of Levophed. No acute overnight events reported by nursing staff. 04/22/2018 Patient failed weaning trial today. 04/23/2018 no significant prominent compared to yesterday regarding her respiratory status is up with pulmonology dictation for further details patient appears to have failed a weaning trial event today. 04/24/2018 Patient underwent tracheostomy and PEG tube placement. 04/25/2018 Patient tolerated spontaneous breathing very well today patient's abdomen is distended, ordered medications for constipation no overnight events. 04/26/2018 no overnight events patient tolerated trach collar for more than 12 hours as today. 04/27/2018 No significant overnight events 04/28/2018 Patient is bit dehydrated with tachycardia hyperemic hyponatremia will give him IV fluids at 100 mL/h today and we'll increase the PEG tube feedings and PEG tube free water by 100 mL every 4 hours. patient is bit depressed patient will be started on Paxil . 04/29/2018 Patient's dehydration improved a bit, LTAC is working on patient's insurance. No overnight events will leave her on 100 mL of normal saline today Objective - Vital Signs Vital signs: Vital Signs Temp 98.8 F 04/29/18 12:00 Pulse 97 04/29/18 12:08 Resp 19 04/29/18 12:00 BP 137/72 04/29/18 12:00 Pulse Ox 98 04/29/18 12:00 Intake & Output 04/28/18 04/29/18 04/29/18 18:59 06:59 18:59 Intake Total 2669 2030 1035 Output Total 1255 915 740 Balance 1414 1115 295 Weight 59.6 kg 61.4 kg Intake: IV 1922 1200 600 0.9NS for pressure bag 12 Dextrose 5% in Water 1, 60 000 ml @ 20 mls/hr IV . Q24H [facility] Rx#:[id number] Piperacillin-Tazobactam 3 50 .375 gm In Dextrose/Water 1 50ml.bag @ 12.5 mls/hr IVPB Q8HR [facility] Rx#: [id number] Sodium Chloride 0.9% 1, 800 1200 600 000 ml @ 100 mls/hr IV . Q10H [facility] Rx#:[id number] Sodium Chloride 0.9% 1, 1000 000 ml @ 999 mls/hr IV . Q1H1M [facility] Rx#:[id number] Tube Feeding 517 470 235 Other 230 360 200 Output: Urine 1255 915 740 Other: Voiding Method Indwelling Catheter Indwelling Catheter Indwelling Catheter # Voids 0 # Bowel Movements 1 1 ABP, PAP, CO, CI - Last Documented Arterial Blood Pressure 119/101 - Exam Physical Exam: Patient is on ventilatory support intake alert off pressor support has a tracheostomy and PEG tube placement Head: Atraumatic, normocephalic. Patient had a tracheostomy today HEENT:Neck is supple.No neck masses. No thyromegaly. Chest: Extremely diminished breath sound bilaterally, few wheezes bilaterally Cardiac Exam: Normal S1 and S2, no S3 gallop, no murmur. Patient is bit tachycardic Abdomen: Soft, nontender, no megaly, no rebound, no guarding, normal bowel sounds. PEG tube in place patient will be initiated on PEG tube feedings today Extremities: No clubbing, no edema, no cyanosis Neurological Exam: Awake and alert and does not appear to have any focal deficits - Labs CBC & Chem 7: 04/29/18 03:52 04/29/18 03:52 Labs: Abnormal Lab Results - Last 24 Hours (Table) 04/28/18 04/28/18 04/28/18 Range/Units 13:12 17:53 23:50 WBC (3.8-10.6) k/uL RBC (3.80-5.40) m/uL Hgb (11.4-16.0) gm/dL Hct (34.0-46.0) % ABG pCO2 (35-45) mmHg ABG HCO3 (21-25) mmol/L ABG O2 Saturation (94-97) % Sodium (137-145) mmol/L Chloride (98-107) mmol/L Carbon Dioxide (22-30) mmol/L BUN (7-17) mg/dL Creatinine (0.52-1.04) mg/dL Glucose (74-99) mg/dL POC Glucose (mg/dL) 125 H 129 H 148 H (75-99) mg/dL 04/29/18 04/29/18 04/29/18 Range/Units 03:52 03:52 04:40 WBC 13.6 H (3.8-10.6) k/uL RBC 3.30 L (3.80-5.40) m/uL Hgb 9.7 L D (11.4-16.0) gm/dL Hct 30.9 L (34.0-46.0) % ABG pCO2 82 H* (35-45) mmHg ABG HCO3 46 H* (21-25) mmol/L ABG O2 Saturation 97.2 H (94-97) % Sodium 133 L (137-145) mmol/L Chloride 88 L (98-107) mmol/L Carbon Dioxide 44 H* (22-30) mmol/L BUN 21 H (7-17) mg/dL Creatinine 0.30 L (0.52-1.04) mg/dL Glucose 134 H (74-99) mg/dL POC Glucose (mg/dL) (75-99) mg/dL 04/29/18 04/29/18 Range/Units 05:52 11:55 WBC (3.8-10.6) k/uL RBC (3.80-5.40) m/uL Hgb (11.4-16.0) gm/dL Hct (34.0-46.0) % ABG pCO2 (35-45) mmHg ABG HCO3 (21-25) mmol/L ABG O2 Saturation (94-97) % Sodium (137-145) mmol/L Chloride (98-107) mmol/L Carbon Dioxide (22-30) mmol/L BUN (7-17) mg/dL Creatinine (0.52-1.04) mg/dL Glucose (74-99) mg/dL POC Glucose (mg/dL) 153 H 131 H (75-99) mg/dL Assessment and Plan Plan: Acute hypoxic/hypercapnic respiratory failure - on mechanical ventilation, patient underwent tracheostomy and PEG tube placement patient is tolerating spontaneous breathing or BiPAP most of the day tachycardia secondary to dehydration -Hypervolemic hyponatremia: Patient will be started on IV fluids and PEG tube free water as mentioned above Acute COPD exacerbation Hypotension - secondary to Sepsis-which resolved now Hyponatremia History of pneumothorax and wedge resection in the past History of bilateral mastectomy with breast reconstructive surgery Nicotine dependence Moderate protein calorie malnutrition Roseline albicans in the sputum Deppression: Patient will be started on Paxil PLAN: Continue with mechanical ventilation and IV steroids. Antibiotics in the form of Zosyn. So far cultures are negative
[2018-04-29 18:03] LABS: Glucose,Whole Blood 126 mg/dL (75-99)
[2018-04-29] MEDS: SENNOSIDES 8.6 MG TAB PO SCH (21:08)
[2018-04-29 23:55] LABS: Glucose,Whole Blood 146 mg/dL (75-99)
[2018-04-30] MEDS: SODIUM CHLORIDE 0.9% 1,000 ML IV SCH (03:00)
[2018-04-30] MEDS: IPRATROPIUM-ALBUTEROL 3 ML NEB INHALATION SCH ×6 (03:49→23:17)
[2018-04-30 04:27] LABS: ABG Base Excess 22.5 mmol/L; ABG Oxygen Saturation 98.7 % (94-97); ABG PO2 107 mmHg (83-108); ABG TCO2 50 mmol/L (19-24)
[2018-04-30 04:29] LABS: ABG HCO3 47 mmol/L (21-25); ABG PCO2 76 mmHg (35-45)
[2018-04-30 05:22] LABS: HGB 9.9 gm/dL (11.4-16.0); Hypochromasia Slight; MCH 29.8 pg (25.0-35.0); MCV 93.1 fL (80.0-100.0); Mean Platelet Volume 8.2; Platelet Count 367 k/uL (150-450); RBC 3.33 m/uL (3.80-5.40); RDW 12.8 % (11.5-15.5); WBC 15.8 k/uL (3.8-10.6)
[2018-04-30 05:27] LABS: Blood Urea Nitrogen 19 mg/dL (7-17); Calcium 8.8 mg/dL (8.4-10.2); Chloride 90 mmol/L (98-107); Glucose 145 mg/dL (74-99); Magnesium 1.9 mg/dL (1.6-2.3); Phosphorus 2.7 mg/dL (2.5-4.5); Potassium 5.1 mmol/L (3.5-5.1); Sodium 135 mmol/L (137-145)
[2018-04-30] MEDS: methylPREDNISolone SOD SUCCI 40 MG/ML 1 ML VIAL IV SCH (05:51)
[2018-04-30 06:02] LABS: Anion Gap 4 mmol/L; Carbon Dioxide 41 mmol/L (22-30)
[2018-04-30 06:04] LABS: Glucose,Whole Blood 149 mg/dL (75-99)
[2018-04-30] MEDS: INSULIN ASPART 100 UNIT/ML 1 ML 10 ML VIAL SQ SCH ×3 (06:10→18:29)
[2018-04-30] MEDS: MAGNESIUM SULFATE-D5W PMX 1 GM in DEXTROSE/WATER 1 100ML.BAG IVPB SCH ×2 (06:38→08:34)
[2018-04-30] MEDS: FORMOTEROL FUMARATE 20 MCG/2 ML NEBU INHALATION SCH ×2 (07:29→19:13)
[2018-04-30] MEDS: BUDESONIDE 1 MG/2 ML NEBU INHALATION SCH ×2 (07:29→19:13)
--- NOTE | 2018-04-30 07:55 | XR ---
EXAMINATION TYPE: XR chest 1V portable DATE OF EXAM: 04/30/2018 COMPARISON: 04/29/2018 INDICATION: Pneumonia TECHNIQUE: Single frontal view of the chest is obtained. FINDINGS: The heart size is normal. The pulmonary vasculature is normal. Suspicious focal consolidation is not identified. Subtle minimal subsegmental atelectasis may be at t he bilateral diaphragms. This is very minimal. Right upper lobe postsurgical changes are evident. Tracheostomy tube is in the midline. No significan t interval change from comparison study. IMPRESSION: 1. Very minimal atelectasis along the bilateral diaphragms. 2. No suspicious focal consolidation to suggest pneumonia. Follow-up can be performed as clinically i ndicated.
[2018-04-30] MEDS: LACTULOSE 20 GM/30 ML CUP PO SCH ×2 (08:34→21:38)
[2018-04-30] MEDS: ENOXAPARIN 40 MG/0.4 ML SYRINGE SQ SCH (08:34)
[2018-04-30] MEDS: CHLORHEXIDINE GLUCONATE 15 ML CUP MUCOUS MEM SCH ×2 (08:34→21:37)
[2018-04-30] MEDS: PANTOPRAZOLE 40 MG/10 ML VIAL IV SCH (08:35)
[2018-04-30] MEDS: PARoxetine 10 MG TAB PO SCH (08:35)
--- NOTE | 2018-04-30 10:07 | P.PN ---
Subjective Progress Note Date: 04/30/18 Principal diagnosis: Acute hypoxemic respiratory failure secondary to acute COPD exacerbation This is a 57-year-old female with history of severe end-stage COPD,/emphysema, patient is O2 dependent, prednisone responsive, FEV1 is in the range of 26% at best, FEV1/FVC is 41%, patient has hyperinflation, and a relatively low DLCO consistent with severe emphysema. Patient normally sees Dr. Henderson for her COPD , and her primary care physician is Dr. Golden. Patient was just discharged about 6 days ago from [facility] when she was admitted initially with a similar episode of COPD exacerbation and tracheobronchitis. Has been compliant with her medications, does not smoke, she quit smoking over 10 years ago. Patient had previous screening for alpha-1 antitrypsin deficiency , and she was told it was negative by Dr. Henderson. At any rate patient came in with a few days' history of increased shortness of breath, cough, cough is productive with whitish phlegm, some wheezing, no chest pain, no fever, no chills, no hemoptysis. Denies any headaches, no blurred vision, no dizziness. No nausea no vomiting no abdominal pain, no melena, no hematemesis, no dysuria and no frequency no urgency. Chest x-ray in the ER showed no evidence of active disease, there was hyperinflation consistent with COPD. Patient was admitted, and this consult was initiated. I saw the patient immediately after she arrived to the medical floor. And orders were placed on the chart including bronchodilators, and steroids. On 04/18/2018 patient seen again in follow-up. Not much improved since admission, patient is very dyspneic with conversation, more so with any exertion. Lung sounds are extremely diminished, with faint wheezing in the upper lobes. She has a persistent cough, but it is nonproductive. Her last episode of fever was yesterday at 10:30 in the morning with a picture of 100.3 F. Afebrile today. Blood and urine cultures are pending. Pulse ox on 3 L per nasal cannula is 91%, respirations are shallow. Remains significantly mid in terms of activity tolerance. Patient's serum sodium is improving, currently on IV 0.9 normal saline at a rate of 50 ML per hour, and today's serum sodium is 129 up from 126 from admission. Continue 1500 fluid restriction Progress note dated 04/21/2018 This is a 57-year-old female well-known to me. She was admitted on April 17 intubated on April 19. Currently on the volume assist control mode with a rate of 14 tidal volume 350 FiO2 35% PEEP of 6. Arterial blood gases show a PaO2 of 72 and a PaCO2 of 81 and a pH is 7.36. She is on a saline IV at 75 mL an hour propofol at 50 mics per kilogram per minute and norepinephrine is on hold. No tube feeds have been started as yet. She's had an oral gastric tube in place and an endotracheal tube in place. I've asked the nurses to talk to nutrition about starting tube feeds. In addition to hypoxemic hypercapnic respiratory failure, she has a history of spontaneous pneumothorax in 2006 with previous wedge resection and mechanical pleurodesis breast cancer 2004 with bilateral breast reconstruction and sepsis with septic shock and hypotension. She is also thought to possibly have community-acquired bilateral pneumonia. I have talked to this patient in the past about possible lung transplantation but she wasn't very excited. She was anemic excited to have a evaluation. Microbiology is as far all negative. White count is 15.7 hemoglobin 10.7 hematocrit 34.8 and platelet count 234,000. In addition, sodium 138 potassium 5.1 chloride 91 CO2 45 anion gap to be running creatinine 17 and 0.43. Chest x- rays mostly consistent with hyperinflation. Computed tomography scan of the chest shows diffuse peribronchial cuffing with tree-in-bud opacities as well as diffuse nodular opacities. Progress note dated 04/22/2018 57-year-old female well-known to me. She has a history of severe COPD. She was admitted on April 17 intubated on April 19. She actually has made no progress towards extubation. I've had a series talk with the family yesterday. She likely will end up with a trach and PEG. Currently, we did do a daily eruption of sedation with a spontaneous breathing trial but unfortunately she did very poorly. Her rapid shallow breathing index was well above 105. Tidal volumes are low. Respiratory rates were very high. Her saturations dropped into the 70s. Hence was placed back on the ventilator at the previous settings. Currently, she is on the volume assist control modality with a rate of 14 tidal volume 350 FiO2 35% and a PEEP of 6. Arterial blood gases show a PaO2 of 70 a PaCO2 of 77 and a normal pH is 7.42. She is on propofol at 50 mics per kilogram per minute is saline IV at 75 mL an hour and vital high protein at 10 with a goal of 41 mL an hour. Chest x-ray shows only changes of COPD. I am and have the respiratory therapist pushed endotracheal tube down 1 cm. Progress note dated 04/23/2018 57-year-old female well-known to me. She has a history of severe COPD with an FEV1 that's below 30%. Currently still on the ventilator. She is on the volume assist control mode with a rate of 14, tidal volume 350, FiO2 40%, and PEEP of 6. Arterial blood gases show a PaO2 of 96 a PaCO2 of 87 and a pH of 7.35. She is scheduled for a tracheostomy and PEG tube placement today at 1 PM. Chest x-ray shows a minimal infiltrate in the right lower lobe. She is on a saline IV at 55 mL an hour lactated Ringer's at 20 mL an hour. Tube feedings are off in anticipation of her surgery today. She really has not made any progress towards weaning and extubation. I have had discussions with the family. They understand her poor prognosis. She will have a daily interuption of sedation today. Progress note dated 04/24/2018 57-year-old female well-known to me. She has a history of severe COPD with an FEV1 that is about 23% of predicted. Yesterday, she's had a tracheostomy and PEG tube performed by one of the thoracic surgeons. The patient has been on the volume assist control mode rate of 14 tidal volume 350 FiO2 40% PEEP of 6. Arterial blood gases show a PaO2 of 77 a PaCO2 of 92 and a pH of 7.33. The patient will get a spontaneous breathing trial today. We'll place her on PSV 8 CPAP of 5. She's not on any propofol at this time. The patient will get some additional Lasix today 40 mg IV push. She's on a D5W IV at 60 mL an hour. Tube feeds are currently on hold given the recent PEG tube placement. She is much more awake and alert today. She looks well. Overall prognosis O is very guarded. Chest x-ray showed appears to show a minimal infiltrate in the right lower lobe. White count is 17.4 hemoglobin 10.8 hematocrit 35.5 and platelet count 328,000. Sodium 141 potassium 4.8 chloride 90 CO2 46 BUN and creatinine were 29 and 0.4. Progress note dated 04/25/2018 57-year-old female well-known to me. She has history of severe stage IV COPD with an FEV1 that is 23% of predicted. 2 days ago, on the , she had a tracheostomy and PEG tube performed by one of the thoracic surgeons. Yesterday she spent about an hour on pressure support and CPAP. She apparently got anxious according to the nurses. Today, we put her back on PSV 8 CPAP of 5. So far she is doing well. Her ventilator settings when she is not on the pressor support include the volume assist control mode rate of 14, tidal volume 350, FiO2 40% and PEEP of 5. Arterial blood gases show a PaO2 of 80 a PaCO2 of 86 and a pH that is normal at 7.42. She's getting dextrose and water at 60 mL an hour and vital AF 1.2 at 25 mL an hour with a goal of 47 mL an hour. Chest x -ray shows a minimal infiltrate right lower lobe. Yesterday we gave her some Lasix and she seemed to diuresis well. Today she looks much happier with a smile on her face and she has much less edema and anasarca. So far all her culture data is negative. Her sister is at the bedside. Progress note dated 04/26/2018 57-year-old female well-known to me. She has a history of severe, stage IV COPD with an FEV1 that is 23% of predicted. She had a tracheostomy and PEG tube placed 3 days ago on the . Yesterday, she spent about 12 hours on PSV/ CPAP 8 and 5 respectively. She seems to be doing relatively well and will be placed back on PSV and CPAP today. Her ventilator settings overnight included volume assist control mode with a rate of 14, tidal volume 350, FiO2 40% and PEEP of 5. The patient seems awake and alert. Chest x-ray stable. Showing a minimal infiltrate right lower lobe. Microbiology is still on negative. There was some yeast in the afternoon. Likely just a contaminant or colonizer. White count is 14.7, hemoglobin 11.3 and platelet count is normal. Arterial blood gases show a PaO2 of 86 a PaCO2 of 75. PH is 7.44. The patient's sodium was 134 potassium 4.5 chloride is 81 CO2 50 and 9 Normal and BUN and creatinine were 20 and 0.3 respectively. The patient remains on Cleveprex at 8 mg an hour , D5W at 60 mL an hour, and vital AF 1.2 at 47 which is goal. Progress note dated 04/27/2018 57-year-old female well-known to me. She has severe stage IV COPD with an FEV1 that is 23% of predicted. She is status post tracheostomy and PEG tube placement on April 23. The patient has spent a number of hours on PSV 5 CPAP at 85 and yesterday spent some time on trach collar. We will resume some of the weaning again today. The patient's vent settings include the volume assist control mode rate of 14, tidal volume 350, FiO2 40% to be dropped to 35% and PEEP of 5. The patient's blood gases show a PaO2 of 1:15 PaCO2 of 76 and a pH which is basically normal at 7.44. She remains on a D5W IV at 60 mL an hour and tube feeds with vital AF at a goal of 47. Today we will KVO her IV. Chest x-ray continues to show a stable right basilar infiltrate. Microbiology remained negative. Lab data includes a white count of 14.7 hemoglobin 10.8 sodium 135 potassium 4.5 chloride 83 CO2 48 and a normal anion gap and a BUN and creatinine of 19 and 0.3 respectively. A 57-year-old female patient is being seen in follow-up on 04/28/2018. The patient has advanced COPD with an FEV1 of 23% of predicted. She came in with acute respiratory failure secondary to COPD exacerbation. The patient subsequently went into prolonged ventilator-dependent history failure and she failed to wean. Based on that, the patient had a tracheostomy and PEG tube inserted. The patient is getting daily pressure support mode of ventilation. Yesterday she spent approximately 8 hours on a pressure support of 5 and a PEEP of 5 with an FiO2 of 40%. Subsequently she was switched back to assist control mode at a rate of 14, tidal volume 350 with a PEEP of 5 and the same level of FiO2. Chest x-ray shows hyperinflation and there is no evidence of a pneumonia. The patient has bilateral breast implants. The patient is still receiving tube feeds with vital a half and she is currently at goal. She has passed bowel movements. No abdominal distention. No nausea or vomiting or emesis. Hemodynamically stable. Neurologically awake and alert and she is following commands and answering questions. No significant anxiety. No other significant events over the past 24 hours. Our plan is to continue our weaning efforts. She needs aggressive physical therapy as the patient has motor weakness both in the upper and lower extremity. The plan is also to move this patient for [facility] once we get a clearance from the other facility. The issue I think is the lack of medical insurance at this point. Meanwhile she continues to have her supportive treatment in our ICU. On 04/29/2018 patient seen again in the intensive care unit. She is awake, alert, she is currently trached to the event, and she is currently evidence spontaneous breathing trials, and remains on pressure support mode of ventilation with a pressure support of 5 and PEEP of 5 and FiO2 of 40%. Yesterday she trach collar for a total of 6 hours FiO2 of 35%, and tolerated quite well. Patient was placed back on assist control mode of ventilation overnight to rest. This morning she states she slept well last night, she denies any complaints, denies any dyspnea, denies any chest discomfort, denies any chest congestion. Lung sounds are positive for a few scattered rhonchi, some minimal wheezing in the right posterior lower lobe. No fever, no chills, vital signs are stable. Appearance of bilateral upper and lower extremity edema is improving, although she still has some residual edema. Her maintenance IV fluid is 0.9 normal saline at a rate of 100 ML per hour, this was started for attending physician, to gently hydrate the patient. Today's lab work was reviewed, and WBC is down to 13.6, from 21.3, hemoglobin is 9.7, serum sodium is 133, potassium is 5.0, chloride is 88, CO2 is 44, B1 is 21, creatinine 0.30. And clear patient is awake alert, and following commands, and she is in good spirits. Physical therapy is working with the patient, and patient stood up at the bedside yesterday with the physical therapy. Yesterday we discontinued patient's Zosyn, all cultures have been negative except for Roseline albicans in the sputum culture. Patient is tolerating her tube feedings , and she is passing bowel movements. No abdominal distention, abdomen is soft , no nausea or vomiting. Hemodynamically she remains stable, no other significant events over the past 24 hours. She'll work is working on getting the patient approved for transfer to long-term [facility] facility. On 04/30/2018 patient seen again in follow-up in intensive care unit. She is awake, alert, currently on assist control mode of ventilation, with a rate of 14 , tidal volume 350, FiO2 35% and PEEP of 5. Patient has been having daily pressure support and trach collar trials, and has been tolerating them well. Yesterday patient trach collared for 1-1/2 hours, after which she was placed back on assist control mode of ventilation because of fatigue. Lung sounds are positive for a few scattered rhonchi, no wheezing noted on today's exam. This morning's blood gas showed pO2 of 107, pCO2 of 76, pH of 7.40, this was done on FiO2 of 35%, and is consistent with chronic hypercapnic respiratory failure. Labs were reviewed, WBCs 15.8, hemoglobin is 9.9, serum sodium is 135, potassium is 5.1, CO2 41, BUN is 19, creatinine 0.33. Maintenance IV fluids is 0.9 normal saline at a rate of 20 ML per hour, no other drips. Patient is tolerating tube feedings of vital AF, 1.2 at a rate of 47 ML per hour, with free water flushes of 100 ML every 4 hours. No fever or chills, no chest tightness, no increased chest congestion. Occasionally her has been small amount of white phlegm suctioned endotracheally. Physical therapy is following the patient, and patient stood up with assistance at the bedside yesterday. Social work is working on prior authorization for placement to a long-term [facility] facility. Objective - Vital Signs Vital signs: Vital Signs Temp 99 F 04/30/18 08:00 Pulse 102 H 04/30/18 09:00 Resp 22 04/30/18 09:00 BP 135/89 04/30/18 09:00 Pulse Ox 98 04/30/18 09:00 Intake & Output 04/29/18 04/30/18 04/30/18 18:59 06:59 18:59 Intake Total 2164 2352 454 Output Total 1240 Balance 924 2352 454 Weight 59.4 kg Intake: IV 1300 1300 200 Magnesium Sulfate-D5w Pmx 100 1 gm In Dextrose/Water 1 100ml.bag @ 100 mls/hr IVPB Q1H [facility] Rx#: [id number] Sodium Chloride 0.9% 1, 1300 1200 200 000 ml @ 100 mls/hr IV . Q10H [facility] Rx#:[id number] Tube Feeding 564 752 94 Other 300 300 160 Output: Urine 1240 Other: Voiding Method Indwelling Catheter Bedpan Bedpan # Voids 0 1 ABP, PAP, CO, CI - Last Documented Arterial Blood Pressure 119/101 - Exam Physical Exam: Revealed a 57-year-old female, trached to the vent, currently on pressure-support mode of ventilation, with PSV of 5 CPAP of 5, FiO2 of 40%, awake, alert, in no acute distress. Head: Atraumatic, normocephalic. HEENT:[Neck is supple.] [No neck masses.] [No thyromegaly.] [No JVD.] PERRLA, EOMI, no icterus. Moist mucous membranes. Patient has a midline tracheostomy tube, it is a #8 [place] with a phone call for Chest: [Good air entry noted bilaterally, there are a few scattered rhonchi. No wheezes, no rales Cardiac Exam: [Normal S1 and S2, no S3 gallop, no murmur.] Abdomen: [Soft, nontender, no megaly, no rebound, no guarding, normal bowel sounds. PEG tube insertion site is clean dry and intact, and the patient is receiving continuous tube feedings, and is tolerating them very well.] Extremities: [No clubbing, no edema, no cyanosis.] Neurological Exam: [No focal neurologic deficit.] Psychiatric: Normal mood affect and mental status examination. Lymphatics: No lymphadenopathy was appreciated. Musculoskeletal: Normal range of motion, no deformities noted. No focal neurological deficits, motor function showing some weakness chest symmetrical - Labs CBC & Chem 7: 04/30/18 04:57 04/30/18 04:57 Labs: Abnormal Lab Results - Last 24 Hours (Table) 04/29/18 04/29/18 04/29/18 Range/Units 11:55 18:01 23:53 WBC (3.8-10.6) k/uL RBC (3.80-5.40) m/uL Hgb (11.4-16.0) gm/dL Hct (34.0-46.0) % ABG pCO2 (35-45) mmHg ABG HCO3 (21-25) mmol/L ABG Total CO2 (19-24) mmol/L ABG O2 Saturation (94-97) % Sodium (137-145) mmol/L Chloride (98-107) mmol/L Carbon Dioxide (22-30) mmol/L BUN (7-17) mg/dL Creatinine (0.52-1.04) mg/dL Glucose (74-99) mg/dL POC Glucose (mg/dL) 131 H 126 H 146 H (75-99) mg/dL 04/30/18 04/30/18 04/30/18 Range/Units 04:20 04:57 04:57 WBC 15.8 H (3.8-10.6) k/uL RBC 3.33 L (3.80-5.40) m/uL Hgb 9.9 L (11.4-16.0) gm/dL Hct 31.0 L (34.0-46.0) % ABG pCO2 76 H* (35-45) mmHg ABG HCO3 47 H* (21-25) mmol/L ABG Total CO2 50 H (19-24) mmol/L ABG O2 Saturation 98.7 H (94-97) % Sodium 135 L (137-145) mmol/L Chloride 90 L (98-107) mmol/L Carbon Dioxide 41 H* (22-30) mmol/L BUN 19 H (7-17) mg/dL Creatinine 0.33 L (0.52-1.04) mg/dL Glucose 145 H (74-99) mg/dL POC Glucose (mg/dL) (75-99) mg/dL 04/30/18 Range/Units 06:03 WBC (3.8-10.6) k/uL RBC (3.80-5.40) m/uL Hgb (11.4-16.0) gm/dL Hct (34.0-46.0) % ABG pCO2 (35-45) mmHg ABG HCO3 (21-25) mmol/L ABG Total CO2 (19-24) mmol/L ABG O2 Saturation (94-97) % Sodium (137-145) mmol/L Chloride (98-107) mmol/L Carbon Dioxide (22-30) mmol/L BUN (7-17) mg/dL Creatinine (0.52-1.04) mg/dL Glucose (74-99) mg/dL POC Glucose (mg/dL) 149 H (75-99) mg/dL Assessment and Plan Plan: Assessment: 1 advanced COPD with an FEV1 of 23% at baseline 2 acute on top of chronic hypoxic and hypercapnic respiratory failure, post tracheostomy tube insertion for a long mechanical ventilation and failure to wean. Blood gases from today still showing a component of respirator acidosis which is chronic and well compensated for now 3 history of spontaneous pneumothorax 2007 status post resection of apical bleb and mechanical pleurodesis 4 breast cancer with bilateral mastectomy and breast reconstruction surgery and implants back in 2004 5 enteral feeding via PEG tube for nutritional support 6 hypertension, recovered 7 motor weakness secondary to prolonged ICU stay and mechanical ventilation Plan Continue with daily pressure support trials and daily trach collar trials. Place patient back on assist control mode at night, and as needed during the day in case of fatigue. Vital signs are stable, no fever or chills, today's chest x-ray has been reviewed by Dr. Coles, shows very minimal atelectasis along the bilateral diaphragms, but no focal consolidation to suggest pneumonia. Continue mobilizing the patient. Otherwise patient remains stable. Social work is working on prior authorization for placement to a long-term vent facility. Continue current dose Solu-Medrol, nebulized bronchodilators, Pulmicort and Perforomist. Continue supportive care. I performed a history & physical examination of the patient and discussed their management with my nurse practitioner, Destinee Tay. I reviewed the nurse practitioner's note and agree with the documented findings and plan of care. Lung sounds are positive for good air entry bilaterally, with a few scattered rhonchi. The findings and the impression was discussed with the patient. I attest to the documentation by the nurse practitioner. Time with Patient: Greater than 30
--- NOTE | 2018-04-30 11:56 | P.PN ---
Subjective 57-year-old female with history of severe end-stage COPD O2 dependent ( FEV1 is in the range of 26% at best, FEV1/FVC is 41%) came in with a few days' history of increased shortness of breath, cough, cough is productive with whitish phlegm , some wheezing, no chest pain, no fever, no chills, no hemoptysis. Patient normally sees Dr. Henderson for her COPD, and her primary care physician is Dr. Golden. Patient was just discharged about 6 days ago from [facility] when she was admitted initially with a similar episode of COPD exacerbation and tracheobronchitis. Patient had previous screening for alpha- 1 antitrypsin deficiency, and she was told it was negative by Dr. Henderson. Chest x-ray in the ER showed no evidence of active disease, there was hyperinflation consistent with COPD. She is being treated for COPD exacerbation currently. On 04/19/2018 - patient has been lying in bed and appears to be in mild respiratory distress. Patient is currently on 5 L of oxygen via nasal cannula saturating barely at 90%. As per the nursing staff report patient has been like this since morning and she has not been getting her breathing treatments . She is also on IV Solu-Medrol and antibiotics in the form of Zosyn. 04/20/2018- last night patient's respiration became labored so patient was placed on BiPAP for a few minutes but could not tolerate it and her clinical status deteriorated and rapid response team was called. She was then intubated around 6:30 PM last night. She was on Zosyn, vancomycin and doxycycline have been added to her antibiotics. Sputum cultures and blood cultures were also ordered. Patient dropped her blood pressure for which she was started on Levophed.She is currently on a ventilator. On 04/21/18 - patient remained sedated and is being mechanically ventilated. She is off of Levophed. No acute overnight events reported by nursing staff. 04/22/2018 Patient failed weaning trial today. 04/23/2018 no significant prominent compared to yesterday regarding her respiratory status is up with pulmonology dictation for further details patient appears to have failed a weaning trial event today. 04/24/2018 Patient underwent tracheostomy and PEG tube placement. 04/25/2018 Patient tolerated spontaneous breathing very well today patient's abdomen is distended, ordered medications for constipation no overnight events. 04/26/2018 no overnight events patient tolerated trach collar for more than 12 hours as today. 04/27/2018 No significant overnight events 04/28/2018 Patient is bit dehydrated with tachycardia hyperemic hyponatremia will give him IV fluids at 100 mL/h today and we'll increase the PEG tube feedings and PEG tube free water by 100 mL every 4 hours. patient is bit depressed patient will be started on Paxil . 04/29/2018 Patient's dehydration improved a bit, LTAC is working on patient's insurance. No overnight events will leave her on 100 mL of normal saline today 04/30/2018 Patient is awaiting to be discharged to LTAC. No overnight events. Objective - Vital Signs Vital signs: Vital Signs Temp 99 F 04/30/18 08:00 Pulse 101 H 04/30/18 11:31 Resp 22 04/30/18 11:00 BP 133/80 04/30/18 11:00 Pulse Ox 96 04/30/18 11:00 Intake & Output 04/29/18 04/30/18 04/30/18 18:59 06:59 18:59 Intake Total 2164 2352 748 Output Total 1240 Balance 924 2352 748 Weight 59.4 kg Intake: IV 1300 1300 400 Magnesium Sulfate-D5w Pmx 100 1 gm In Dextrose/Water 1 100ml.bag @ 100 mls/hr IVPB Q1H [facility] Rx#: [id number] Sodium Chloride 0.9% 1, 1300 1200 400 000 ml @ 100 mls/hr IV . Q10H [facility] Rx#:[id number] Tube Feeding 564 752 188 Other 300 300 160 Output: Urine 1240 Other: Voiding Method Indwelling Catheter Bedpan Bedpan # Voids 0 1 ABP, PAP, CO, CI - Last Documented Arterial Blood Pressure 119/101 - Exam Physical Exam: Patient is on ventilatory support intake alert off pressor support has a tracheostomy and PEG tube placement Head: Atraumatic, normocephalic. Patient had a tracheostomy today HEENT:Neck is supple.No neck masses. No thyromegaly. Chest: Extremely diminished breath sound bilaterally, few wheezes bilaterally Cardiac Exam: Normal S1 and S2, no S3 gallop, no murmur. Patient is bit tachycardic Abdomen: Soft, nontender, no megaly, no rebound, no guarding, normal bowel sounds. PEG tube in place patient will be initiated on PEG tube feedings today Extremities: No clubbing, no edema, no cyanosis Neurological Exam: Awake and alert and does not appear to have any focal deficits - Labs CBC & Chem 7: 04/30/18 04:57 04/30/18 04:57 Labs: Abnormal Lab Results - Last 24 Hours (Table) 04/29/18 04/29/18 04/29/18 Range/Units 11:55 18:01 23:53 WBC (3.8-10.6) k/uL RBC (3.80-5.40) m/uL Hgb (11.4-16.0) gm/dL Hct (34.0-46.0) % ABG pCO2 (35-45) mmHg ABG HCO3 (21-25) mmol/L ABG Total CO2 (19-24) mmol/L ABG O2 Saturation (94-97) % Sodium (137-145) mmol/L Chloride (98-107) mmol/L Carbon Dioxide (22-30) mmol/L BUN (7-17) mg/dL Creatinine (0.52-1.04) mg/dL Glucose (74-99) mg/dL POC Glucose (mg/dL) 131 H 126 H 146 H (75-99) mg/dL 04/30/18 04/30/18 04/30/18 Range/Units 04:20 04:57 04:57 WBC 15.8 H (3.8-10.6) k/uL RBC 3.33 L (3.80-5.40) m/uL Hgb 9.9 L (11.4-16.0) gm/dL Hct 31.0 L (34.0-46.0) % ABG pCO2 76 H* (35-45) mmHg ABG HCO3 47 H* (21-25) mmol/L ABG Total CO2 50 H (19-24) mmol/L ABG O2 Saturation 98.7 H (94-97) % Sodium 135 L (137-145) mmol/L Chloride 90 L (98-107) mmol/L Carbon Dioxide 41 H* (22-30) mmol/L BUN 19 H (7-17) mg/dL Creatinine 0.33 L (0.52-1.04) mg/dL Glucose 145 H (74-99) mg/dL POC Glucose (mg/dL) (75-99) mg/dL 04/30/18 Range/Units 06:03 WBC (3.8-10.6) k/uL RBC (3.80-5.40) m/uL Hgb (11.4-16.0) gm/dL Hct (34.0-46.0) % ABG pCO2 (35-45) mmHg ABG HCO3 (21-25) mmol/L ABG Total CO2 (19-24) mmol/L ABG O2 Saturation (94-97) % Sodium (137-145) mmol/L Chloride (98-107) mmol/L Carbon Dioxide (22-30) mmol/L BUN (7-17) mg/dL Creatinine (0.52-1.04) mg/dL Glucose (74-99) mg/dL POC Glucose (mg/dL) 149 H (75-99) mg/dL Assessment and Plan Plan: Acute hypoxic/hypercapnic respiratory failure - on mechanical ventilation, patient underwent tracheostomy and PEG tube placement patient is tolerating spontaneous breathing or BiPAP most of the day tachycardia secondary to dehydration which resolved now IV fluids will be discontinued -Hypervolemic hyponatremia: Improved now with IV fluids Acute COPD exacerbation Hypotension - secondary to Sepsis-which resolved now Hyponatremia History of pneumothorax and wedge resection in the past History of bilateral mastectomy with breast reconstructive surgery Nicotine dependence Moderate protein calorie malnutrition Roseline albicans in the sputum Deppression: Patient will be started on Paxil PLAN: Continue with mechanical ventilation and IV steroids. Antibiotics in the form of Zosyn. So far cultures are negative
[2018-04-30 12:22] LABS: Glucose,Whole Blood 147 mg/dL (75-99)
[2018-04-30 16:11] VITALS: BMI 22.4
[2018-04-30] MEDS: LORazepam 2 MG/ML INJ IV PRN (18:28)
[2018-04-30 18:29] LABS: Glucose,Whole Blood 103 mg/dL (75-99)
[2018-04-30] MEDS: SENNOSIDES 8.6 MG TAB PO SCH (21:38)
[2018-04-30 23:57] LABS: Glucose,Whole Blood 111 mg/dL (75-99)
[2018-05-01] MEDS: INSULIN ASPART 100 UNIT/ML 1 ML 10 ML VIAL SQ SCH ×5 (00:24→23:43)
[2018-05-01] MEDS: IPRATROPIUM-ALBUTEROL 3 ML NEB INHALATION SCH ×6 (03:14→23:08)
[2018-05-01 04:56] LABS: HCT 30.4 % (34.0-46.0); HGB 9.6 gm/dL (11.4-16.0); Hypochromasia Slight; MCH 29.4 pg (25.0-35.0); MCHC 31.6 g/dL (31.0-37.0); MCV 92.9 fL (80.0-100.0); Mean Platelet Volume 8.2; Platelet Count 341 k/uL (150-450); RBC 3.27 m/uL (3.80-5.40); RDW 13.1 % (11.5-15.5); WBC 13.2 k/uL (3.8-10.6)
[2018-05-01 05:07] LABS: Blood Urea Nitrogen 20 mg/dL (7-17); Calcium 8.7 mg/dL (8.4-10.2); Chloride 86 mmol/L (98-107); Glucose 103 mg/dL (74-99); Magnesium 1.9 mg/dL (1.6-2.3); Phosphorus 2.5 mg/dL (2.5-4.5); Potassium 4.7 mmol/L (3.5-5.1); Sodium 130 mmol/L (137-145)
[2018-05-01 05:12] LABS: ABG Base Excess 23.2 mmol/L; ABG Oxygen Saturation 98.7 % (94-97); ABG PCO2 64 mmHg (35-45); ABG PH 7.47 (7.35-7.45); ABG PO2 104 mmHg (83-108); ABG TCO2 49 mmol/L (19-24)
[2018-05-01 05:13] LABS: Anion Gap 0 mmol/L
[2018-05-01 05:15] LABS: ABG HCO3 47 mmol/L (21-25)
[2018-05-01 05:16] LABS: Carbon Dioxide 44 mmol/L (22-30)
[2018-05-01 06:05] LABS: Glucose,Whole Blood 106 mg/dL (75-99)
[2018-05-01] MEDS: MAGNESIUM SULFATE-D5W PMX 1 GM in DEXTROSE/WATER 1 100ML.BAG IVPB SCH ×2 (06:41→07:45)
[2018-05-01] MEDS: FORMOTEROL FUMARATE 20 MCG/2 ML NEBU INHALATION SCH ×2 (07:05→19:34)
[2018-05-01] MEDS: BUDESONIDE 1 MG/2 ML NEBU INHALATION SCH ×2 (07:05→19:03)
--- NOTE | 2018-05-01 07:39 | XR ---
EXAMINATION TYPE: XR chest 1V portable DATE OF EXAM: 05/01/2018 COMPARISON: 04/30/2018 HISTORY: Clinical history of pneumonia. Difficulty breathing. Progress exam. TECHNIQUE: Single frontal view of the chest is obtained. FINDINGS: There is redemonstration of pulmonary hyperinflation and some bibasilar atelectasis with t enting of the diaphragm. Right apical sutures are noted. Midline tracheostomy is seen. Cardiomediasti nal silhouette is within normal limits. Osseous structures are grossly intact. Pulmonary hyperinflati on is noted with apical lucency and peripheral lucency. Pulmonary arterial engorgement suggests under lying pulmonary artery hypertension. IMPRESSION: Unchanged exam in comparison to the prior of 04/30/2018 with minimal bibasilar atelectasi s, changes COPD and findings suggesting underlying pulmonary arterial hypertension.
[2018-05-01] MEDS: LORazepam 2 MG/ML INJ IV PRN (08:07)
--- NOTE | 2018-05-01 08:34 | P.PN ---
Subjective Progress Note Date: 05/01/18 Principal diagnosis: Acute hypoxemic respiratory failure secondary to acute COPD exacerbation This is a 57-year-old female with history of severe end-stage COPD,/emphysema, patient is O2 dependent, prednisone responsive, FEV1 is in the range of 26% at best, FEV1/FVC is 41%, patient has hyperinflation, and a relatively low DLCO consistent with severe emphysema. Patient normally sees Dr. Henderson for her COPD , and her primary care physician is Dr. Golden. Patient was just discharged about 6 days ago from [facility] when she was admitted initially with a similar episode of COPD exacerbation and tracheobronchitis. Has been compliant with her medications, does not smoke, she quit smoking over 10 years ago. Patient had previous screening for alpha-1 antitrypsin deficiency , and she was told it was negative by Dr. Henderson. At any rate patient came in with a few days' history of increased shortness of breath, cough, cough is productive with whitish phlegm, some wheezing, no chest pain, no fever, no chills, no hemoptysis. Denies any headaches, no blurred vision, no dizziness. No nausea no vomiting no abdominal pain, no melena, no hematemesis, no dysuria and no frequency no urgency. Chest x-ray in the ER showed no evidence of active disease, there was hyperinflation consistent with COPD. Patient was admitted, and this consult was initiated. I saw the patient immediately after she arrived to the medical floor. And orders were placed on the chart including bronchodilators, and steroids. On 04/18/2018 patient seen again in follow-up. Not much improved since admission, patient is very dyspneic with conversation, more so with any exertion. Lung sounds are extremely diminished, with faint wheezing in the upper lobes. She has a persistent cough, but it is nonproductive. Her last episode of fever was yesterday at 10:30 in the morning with a picture of 100.3 F. Afebrile today. Blood and urine cultures are pending. Pulse ox on 3 L per nasal cannula is 91%, respirations are shallow. Remains significantly mid in terms of activity tolerance. Patient's serum sodium is improving, currently on IV 0.9 normal saline at a rate of 50 ML per hour, and today's serum sodium is 129 up from 126 from admission. Continue 1500 fluid restriction Progress note dated 04/21/2018 This is a 57-year-old female well-known to me. She was admitted on April 17 intubated on April 19. Currently on the volume assist control mode with a rate of 14 tidal volume 350 FiO2 35% PEEP of 6. Arterial blood gases show a PaO2 of 72 and a PaCO2 of 81 and a pH is 7.36. She is on a saline IV at 75 mL an hour propofol at 50 mics per kilogram per minute and norepinephrine is on hold. No tube feeds have been started as yet. She's had an oral gastric tube in place and an endotracheal tube in place. I've asked the nurses to talk to nutrition about starting tube feeds. In addition to hypoxemic hypercapnic respiratory failure, she has a history of spontaneous pneumothorax in 2006 with previous wedge resection and mechanical pleurodesis breast cancer 2004 with bilateral breast reconstruction and sepsis with septic shock and hypotension. She is also thought to possibly have community-acquired bilateral pneumonia. I have talked to this patient in the past about possible lung transplantation but she wasn't very excited. She was anemic excited to have a evaluation. Microbiology is as far all negative. White count is 15.7 hemoglobin 10.7 hematocrit 34.8 and platelet count 234,000. In addition, sodium 138 potassium 5.1 chloride 91 CO2 45 anion gap to be running creatinine 17 and 0.43. Chest x- rays mostly consistent with hyperinflation. Computed tomography scan of the chest shows diffuse peribronchial cuffing with tree-in-bud opacities as well as diffuse nodular opacities. Progress note dated 04/22/2018 57-year-old female well-known to me. She has a history of severe COPD. She was admitted on April 17 intubated on April 19. She actually has made no progress towards extubation. I've had a series talk with the family yesterday. She likely will end up with a trach and PEG. Currently, we did do a daily eruption of sedation with a spontaneous breathing trial but unfortunately she did very poorly. Her rapid shallow breathing index was well above 105. Tidal volumes are low. Respiratory rates were very high. Her saturations dropped into the 70s. Hence was placed back on the ventilator at the previous settings. Currently, she is on the volume assist control modality with a rate of 14 tidal volume 350 FiO2 35% and a PEEP of 6. Arterial blood gases show a PaO2 of 70 a PaCO2 of 77 and a normal pH is 7.42. She is on propofol at 50 mics per kilogram per minute is saline IV at 75 mL an hour and vital high protein at 10 with a goal of 41 mL an hour. Chest x-ray shows only changes of COPD. I am and have the respiratory therapist pushed endotracheal tube down 1 cm. Progress note dated 04/23/2018 57-year-old female well-known to me. She has a history of severe COPD with an FEV1 that's below 30%. Currently still on the ventilator. She is on the volume assist control mode with a rate of 14, tidal volume 350, FiO2 40%, and PEEP of 6. Arterial blood gases show a PaO2 of 96 a PaCO2 of 87 and a pH of 7.35. She is scheduled for a tracheostomy and PEG tube placement today at 1 PM. Chest x-ray shows a minimal infiltrate in the right lower lobe. She is on a saline IV at 55 mL an hour lactated Ringer's at 20 mL an hour. Tube feedings are off in anticipation of her surgery today. She really has not made any progress towards weaning and extubation. I have had discussions with the family. They understand her poor prognosis. She will have a daily interuption of sedation today. Progress note dated 04/24/2018 57-year-old female well-known to me. She has a history of severe COPD with an FEV1 that is about 23% of predicted. Yesterday, she's had a tracheostomy and PEG tube performed by one of the thoracic surgeons. The patient has been on the volume assist control mode rate of 14 tidal volume 350 FiO2 40% PEEP of 6. Arterial blood gases show a PaO2 of 77 a PaCO2 of 92 and a pH of 7.33. The patient will get a spontaneous breathing trial today. We'll place her on PSV 8 CPAP of 5. She's not on any propofol at this time. The patient will get some additional Lasix today 40 mg IV push. She's on a D5W IV at 60 mL an hour. Tube feeds are currently on hold given the recent PEG tube placement. She is much more awake and alert today. She looks well. Overall prognosis O is very guarded. Chest x-ray showed appears to show a minimal infiltrate in the right lower lobe. White count is 17.4 hemoglobin 10.8 hematocrit 35.5 and platelet count 328,000. Sodium 141 potassium 4.8 chloride 90 CO2 46 BUN and creatinine were 29 and 0.4. Progress note dated 04/25/2018 57-year-old female well-known to me. She has history of severe stage IV COPD with an FEV1 that is 23% of predicted. 2 days ago, on the , she had a tracheostomy and PEG tube performed by one of the thoracic surgeons. Yesterday she spent about an hour on pressure support and CPAP. She apparently got anxious according to the nurses. Today, we put her back on PSV 8 CPAP of 5. So far she is doing well. Her ventilator settings when she is not on the pressor support include the volume assist control mode rate of 14, tidal volume 350, FiO2 40% and PEEP of 5. Arterial blood gases show a PaO2 of 80 a PaCO2 of 86 and a pH that is normal at 7.42. She's getting dextrose and water at 60 mL an hour and vital AF 1.2 at 25 mL an hour with a goal of 47 mL an hour. Chest x -ray shows a minimal infiltrate right lower lobe. Yesterday we gave her some Lasix and she seemed to diuresis well. Today she looks much happier with a smile on her face and she has much less edema and anasarca. So far all her culture data is negative. Her sister is at the bedside. Progress note dated 04/26/2018 57-year-old female well-known to me. She has a history of severe, stage IV COPD with an FEV1 that is 23% of predicted. She had a tracheostomy and PEG tube placed 3 days ago on the . Yesterday, she spent about 12 hours on PSV/ CPAP 8 and 5 respectively. She seems to be doing relatively well and will be placed back on PSV and CPAP today. Her ventilator settings overnight included volume assist control mode with a rate of 14, tidal volume 350, FiO2 40% and PEEP of 5. The patient seems awake and alert. Chest x-ray stable. Showing a minimal infiltrate right lower lobe. Microbiology is still on negative. There was some yeast in the afternoon. Likely just a contaminant or colonizer. White count is 14.7, hemoglobin 11.3 and platelet count is normal. Arterial blood gases show a PaO2 of 86 a PaCO2 of 75. PH is 7.44. The patient's sodium was 134 potassium 4.5 chloride is 81 CO2 50 and 9 Normal and BUN and creatinine were 20 and 0.3 respectively. The patient remains on Cleveprex at 8 mg an hour , D5W at 60 mL an hour, and vital AF 1.2 at 47 which is goal. Progress note dated 04/27/2018 57-year-old female well-known to me. She has severe stage IV COPD with an FEV1 that is 23% of predicted. She is status post tracheostomy and PEG tube placement on April 23. The patient has spent a number of hours on PSV 5 CPAP at 85 and yesterday spent some time on trach collar. We will resume some of the weaning again today. The patient's vent settings include the volume assist control mode rate of 14, tidal volume 350, FiO2 40% to be dropped to 35% and PEEP of 5. The patient's blood gases show a PaO2 of 1:15 PaCO2 of 76 and a pH which is basically normal at 7.44. She remains on a D5W IV at 60 mL an hour and tube feeds with vital AF at a goal of 47. Today we will KVO her IV. Chest x-ray continues to show a stable right basilar infiltrate. Microbiology remained negative. Lab data includes a white count of 14.7 hemoglobin 10.8 sodium 135 potassium 4.5 chloride 83 CO2 48 and a normal anion gap and a BUN and creatinine of 19 and 0.3 respectively. A 57-year-old female patient is being seen in follow-up on 04/28/2018. The patient has advanced COPD with an FEV1 of 23% of predicted. She came in with acute respiratory failure secondary to COPD exacerbation. The patient subsequently went into prolonged ventilator-dependent history failure and she failed to wean. Based on that, the patient had a tracheostomy and PEG tube inserted. The patient is getting daily pressure support mode of ventilation. Yesterday she spent approximately 8 hours on a pressure support of 5 and a PEEP of 5 with an FiO2 of 40%. Subsequently she was switched back to assist control mode at a rate of 14, tidal volume 350 with a PEEP of 5 and the same level of FiO2. Chest x-ray shows hyperinflation and there is no evidence of a pneumonia. The patient has bilateral breast implants. The patient is still receiving tube feeds with vital a half and she is currently at goal. She has passed bowel movements. No abdominal distention. No nausea or vomiting or emesis. Hemodynamically stable. Neurologically awake and alert and she is following commands and answering questions. No significant anxiety. No other significant events over the past 24 hours. Our plan is to continue our weaning efforts. She needs aggressive physical therapy as the patient has motor weakness both in the upper and lower extremity. The plan is also to move this patient for [facility] specialty once we get a clearance from the other facility. The issue I think is the lack of medical insurance at this point. Meanwhile she continues to have her supportive treatment in our ICU. On 04/29/2018 patient seen again in the intensive care unit. She is awake, alert, she is currently trached to the event, and she is currently evidence spontaneous breathing trials, and remains on pressure support mode of ventilation with a pressure support of 5 and PEEP of 5 and FiO2 of 40%. Yesterday she trach collar for a total of 6 hours FiO2 of 35%, and tolerated quite well. Patient was placed back on assist control mode of ventilation overnight to rest. This morning she states she slept well last night, she denies any complaints, denies any dyspnea, denies any chest discomfort, denies any chest congestion. Lung sounds are positive for a few scattered rhonchi, some minimal wheezing in the right posterior lower lobe. No fever, no chills, vital signs are stable. Appearance of bilateral upper and lower extremity edema is improving, although she still has some residual edema. Her maintenance IV fluid is 0.9 normal saline at a rate of 100 ML per hour, this was started for attending physician, to gently hydrate the patient. Today's lab work was reviewed, and WBC is down to 13.6, from 21.3, hemoglobin is 9.7, serum sodium is 133, potassium is 5.0, chloride is 88, CO2 is 44, B1 is 21, creatinine 0.30. And clear patient is awake alert, and following commands, and she is in good spirits. Physical therapy is working with the patient, and patient stood up at the bedside yesterday with the physical therapy. Yesterday we discontinued patient's Zosyn, all cultures have been negative except for Roseline albicans in the sputum culture. Patient is tolerating her tube feedings , and she is passing bowel movements. No abdominal distention, abdomen is soft , no nausea or vomiting. Hemodynamically she remains stable, no other significant events over the past 24 hours. She'll work is working on getting the patient approved for transfer to long-term [facility] facility. On 04/30/2018 patient seen again in follow-up in intensive care unit. She is awake, alert, currently on assist control mode of ventilation, with a rate of 14 , tidal volume 350, FiO2 35% and PEEP of 5. Patient has been having daily pressure support and trach collar trials, and has been tolerating them well. Yesterday patient trach collared for 1-1/2 hours, after which she was placed back on assist control mode of ventilation because of fatigue. Lung sounds are positive for a few scattered rhonchi, no wheezing noted on today's exam. This morning's blood gas showed pO2 of 107, pCO2 of 76, pH of 7.40, this was done on FiO2 of 35%, and is consistent with chronic hypercapnic respiratory failure. Labs were reviewed, WBCs 15.8, hemoglobin is 9.9, serum sodium is 135, potassium is 5.1, CO2 41, BUN is 19, creatinine 0.33. Maintenance IV fluids is 0.9 normal saline at a rate of 20 ML per hour, no other drips. Patient is tolerating tube feedings of vital AF, 1.2 at a rate of 47 ML per hour, with free water flushes of 100 ML every 4 hours. No fever or chills, no chest tightness, no increased chest congestion. Occasionally her has been small amount of white phlegm suctioned endotracheally. Physical therapy is following the patient, and patient stood up with assistance at the bedside yesterday. Social work is working on prior authorization for placement to a long-term [facility]. 05/01/2018 patient seen in follow-up in intensive care unit. She is awake, alert, denies any distress. Lung sounds are coarse, no wheezing noted, no rales. Patient was placed on pressure-support ventilation this morning, with pressure support of 8, CPAP of 5. Yesterday patient went on 35% trach collar during the day only for 10 minutes, then became very fatigued, and was placed back on assist control mode of ventilation. His chest x-ray has been reviewed by Dr. Coles, and shows unchanged exam in comparison to the prior chest x- ray yesterday on 04/30/2018 with minimal bibasilar atelectasis. Today's blood gases were reviewed, pO2 of 104, pCO2 of 64, and pH of 7.47, consistent with chronic hypercapnic respiratory failure with metabolic compensation. WBC is 13.2, hemoglobin is 9.6, sodium is 1:30, potassium is 4.7, CO2 of 44, BUN is 20 , creatinine 0.3. Patient is tolerating her tube feedings, and it is vital AF at a rate of 47 ML per hour, with 100 mL free water flushes every 4 hours. Vital signs are stable, patient is afebrile. Patient continues to work with physical therapy, and her strength is slightly improving. Still awaiting preauthorization Objective - Vital Signs Vital signs: Vital Signs Temp 98.2 F 05/01/18 04:00 Pulse 98 05/01/18 07:26 Resp 23 05/01/18 07:00 BP 96/66 05/01/18 07:00 Pulse Ox 97 05/01/18 07:00 Intake & Output 04/30/18 05/01/18 05/01/18 18:59 06:59 18:59 Intake Total 1277 1099 Balance 1277 1099 Weight 59.4 kg 57.5 kg Intake: IV 600 Sodium Chloride 0.9% 1, 600 000 ml @ 100 mls/hr IV . Q10H [facility] Rx#:[id number] Tube Feeding 517 799 Other 160 300 Other: Voiding Method Bedpan Bedpan # Voids 1 1 # Bowel Movements 1 ABP, PAP, CO, CI - Last Documented Arterial Blood Pressure 119/101 - Exam Physical Exam: Revealed a 57-year-old female, trached to the vent, currently on pressure-support mode of ventilation, with PSV of 5 CPAP of 5, FiO2 of 40%, awake, alert, in no acute distress. Head: Atraumatic, normocephalic. HEENT:[Neck is supple.] [No neck masses.] [No thyromegaly.] [No JVD.] PERRLA, EOMI, no icterus. Moist mucous membranes. Patient has a midline tracheostomy tube, it is a #8 [place] with a phone call for Chest: [Good air entry noted bilaterally, there are a few scattered rhonchi. No wheezes, no rales Cardiac Exam: [Normal S1 and S2, no S3 gallop, no murmur.] Abdomen: [Soft, nontender, no megaly, no rebound, no guarding, normal bowel sounds. PEG tube insertion site is clean dry and intact, and the patient is receiving continuous tube feedings, and is tolerating them very well.] Extremities: [No clubbing, no edema, no cyanosis.] Neurological Exam: [No focal neurologic deficit.] Psychiatric: Normal mood affect and mental status examination. Lymphatics: No lymphadenopathy was appreciated. Musculoskeletal: Normal range of motion, no deformities noted. No focal neurological deficits, motor function showing some weakness chest symmetrical - Labs CBC & Chem 7: 05/01/18 04:21 05/01/18 04:21 Labs: Abnormal Lab Results - Last 24 Hours (Table) 04/30/18 04/30/18 04/30/18 Range/Units 12:21 18:24 23:55 WBC (3.8-10.6) k/uL RBC (3.80-5.40) m/uL Hgb (11.4-16.0) gm/dL Hct (34.0-46.0) % ABG pH (7.35-7.45) ABG pCO2 (35-45) mmHg ABG HCO3 (21-25) mmol/L ABG Total CO2 (19-24) mmol/L ABG O2 Saturation (94-97) % Sodium (137-145) mmol/L Chloride (98-107) mmol/L Carbon Dioxide (22-30) mmol/L BUN (7-17) mg/dL Creatinine (0.52-1.04) mg/dL Glucose (74-99) mg/dL POC Glucose (mg/dL) 147 H 103 H 111 H (75-99) mg/dL 05/01/18 05/01/18 05/01/18 Range/Units 04:21 04:21 05:11 WBC 13.2 H (3.8-10.6) k/uL RBC 3.27 L (3.80-5.40) m/uL Hgb 9.6 L (11.4-16.0) gm/dL Hct 30.4 L (34.0-46.0) % ABG pH 7.47 H (7.35-7.45) ABG pCO2 64 H (35-45) mmHg ABG HCO3 47 H* (21-25) mmol/L ABG Total CO2 49 H (19-24) mmol/L ABG O2 Saturation 98.7 H (94-97) % Sodium 130 L (137-145) mmol/L Chloride 86 L (98-107) mmol/L Carbon Dioxide 44 H* (22-30) mmol/L BUN 20 H (7-17) mg/dL Creatinine 0.30 L (0.52-1.04) mg/dL Glucose 103 H (74-99) mg/dL POC Glucose (mg/dL) (75-99) mg/dL 05/01/18 Range/Units 06:03 WBC (3.8-10.6) k/uL RBC (3.80-5.40) m/uL Hgb (11.4-16.0) gm/dL Hct (34.0-46.0) % ABG pH (7.35-7.45) ABG pCO2 (35-45) mmHg ABG HCO3 (21-25) mmol/L ABG Total CO2 (19-24) mmol/L ABG O2 Saturation (94-97) % Sodium (137-145) mmol/L Chloride (98-107) mmol/L Carbon Dioxide (22-30) mmol/L BUN (7-17) mg/dL Creatinine (0.52-1.04) mg/dL Glucose (74-99) mg/dL POC Glucose (mg/dL) 106 H (75-99) mg/dL Assessment and Plan Plan: Assessment: 1 advanced COPD with an FEV1 of 23% at baseline 2 acute on top of chronic hypoxic and hypercapnic respiratory failure, post tracheostomy tube insertion for a long mechanical ventilation and failure to wean. Blood gases from today still showing a component of respirator acidosis which is chronic and well compensated for now 3 history of spontaneous pneumothorax 2007 status post resection of apical bleb and mechanical pleurodesis 4 breast cancer with bilateral mastectomy and breast reconstruction surgery and implants back in 2004 5 enteral feeding via PEG tube for nutritional support 6 hypertension, recovered 7 motor weakness secondary to prolonged ICU stay and mechanical ventilation Plan Patient remains stable, no acute events overnight, she'll tolerate 10 minutes of trach collar trials yesterday, this morning she is back on pressure-support mode of ventilation, tolerating it well. Chest x-ray has been reviewed, and is stable in appearance with some bibasilar atelectasis. No fever, no chills, vital signs are stable. Continue mobilizing the patient, continue tube feedings. Still awaiting authorization from the insurance company for placement [facility]term [facility], in the meantime continue with supportive care, and physical therapy. I performed a history & physical examination of the patient and discussed their management with my nurse practitioner, Destinee Tay. I reviewed the nurse practitioner's note and agree with the documented findings and plan of care. Lung sounds are positive for coarse lung sounds. The findings and the impression was discussed with the patient. I attest to the documentation by the nurse practitioner. Time with Patient: Greater than 30
[2018-05-01] MEDS: ENOXAPARIN 40 MG/0.4 ML SYRINGE SQ SCH (08:57)
[2018-05-01] MEDS: CHLORHEXIDINE GLUCONATE 15 ML CUP MUCOUS MEM SCH ×2 (08:58→20:27)
[2018-05-01] MEDS: PANTOPRAZOLE 40 MG/10 ML VIAL IV SCH (08:58)
[2018-05-01] MEDS: LACTULOSE 20 GM/30 ML CUP PO SCH (08:58)
[2018-05-01] MEDS: predniSONE 20 MG TAB PO SCH (08:59)
[2018-05-01] MEDS: PARoxetine 10 MG TAB PO SCH ×2 (08:59→09:30)
[2018-05-01 11:42] LABS: Glucose,Whole Blood 134 mg/dL (75-99)
[2018-05-01 18:19] LABS: Glucose,Whole Blood 129 mg/dL (75-99)
[2018-05-01] MEDS: SENNOSIDES 8.6 MG TAB PO SCH (20:27)
--- NOTE | 2018-05-01 22:21 | P.PN ---
Subjective 57-year-old female with history of severe end-stage COPD O2 dependent ( FEV1 is in the range of 26% at best, FEV1/FVC is 41%) came in with a few days' history of increased shortness of breath, cough, cough is productive with whitish phlegm , some wheezing, no chest pain, no fever, no chills, no hemoptysis. Patient normally sees Dr. Henderson for her COPD, and her primary care physician is Dr. Golden. Patient was just discharged about 6 days ago from [facility] when she was admitted initially with a similar episode of COPD exacerbation and tracheobronchitis. Patient had previous screening for alpha- 1 antitrypsin deficiency, and she was told it was negative by Dr. Henderson. Chest x-ray in the ER showed no evidence of active disease, there was hyperinflation consistent with COPD. She is being treated for COPD exacerbation currently. On 04/19/2018 - patient has been lying in bed and appears to be in mild respiratory distress. Patient is currently on 5 L of oxygen via nasal cannula saturating barely at 90%. As per the nursing staff report patient has been like this since morning and she has not been getting her breathing treatments . She is also on IV Solu-Medrol and antibiotics in the form of Zosyn. 04/20/2018- last night patient's respiration became labored so patient was placed on BiPAP for a few minutes but could not tolerate it and her clinical status deteriorated and rapid response team was called. She was then intubated around 6:30 PM last night. She was on Zosyn, vancomycin and doxycycline have been added to her antibiotics. Sputum cultures and blood cultures were also ordered. Patient dropped her blood pressure for which she was started on Levophed.She is currently on a ventilator. On 04/21/18 - patient remained sedated and is being mechanically ventilated. She is off of Levophed. No acute overnight events reported by nursing staff. 04/22/2018 Patient failed weaning trial today. 04/23/2018 no significant prominent compared to yesterday regarding her respiratory status is up with pulmonology dictation for further details patient appears to have failed a weaning trial event today. 04/24/2018 Patient underwent tracheostomy and PEG tube placement. 04/25/2018 Patient tolerated spontaneous breathing very well today patient's abdomen is distended, ordered medications for constipation no overnight events. 04/26/2018 no overnight events patient tolerated trach collar for more than 12 hours as today. 04/27/2018 No significant overnight events 04/28/2018 Patient is bit dehydrated with tachycardia hyperemic hyponatremia will give him IV fluids at 100 mL/h today and we'll increase the PEG tube feedings and PEG tube free water by 100 mL every 4 hours. patient is bit depressed patient will be started on Paxil . 04/29/2018 Patient's dehydration improved a bit, LTAC is working on patient's insurance. No overnight events will leave her on 100 mL of normal saline today 04/30/2018 Patient is awaiting to be discharged to LTAC. No overnight events. 05/01/2018 Patient is awaiting to be discharged to LTAC. No overnight events. View of systems CONSTITUTIONAL: no malaise, no fatigue. HEENT: No recent visual problems or hearing problems. Denied any sore throat. CARDIOVASCULAR: No orthopnea, PND, no palpitations, no syncope. GASTROINTESTINAL: No diarrhea, no nausea, no vomiting, no abdominal pain. Normoactive bowel sounds. NEUROLOGICAL: No headaches, no weakness, no numbness. HEMATOLOGICAL: Denies any bleeding or petechiae. GENITOURINARY: Denies any burning micturition, frequency, or urgency. MUSCULOSKELETAL/RHEUMATOLOGICAL: Denies any joint pain, swelling, or any muscle pain. ENDOCRINE: Denies any polyuria or polydipsia. Objective - Vital Signs Vital signs: Vital Signs Temp 98.9 F 05/01/18 12:00 Pulse 101 H 05/01/18 16:09 Resp 23 05/01/18 15:00 BP 109/63 05/01/18 15:00 Pulse Ox 97 05/01/18 15:00 Intake & Output 04/30/18 05/01/18 05/01/18 18:59 06:59 18:59 Intake Total 1277 1099 636 Output Total 750 Balance 1277 1099 -114 Weight 59.4 kg 57.5 kg Intake: IV 600 Sodium Chloride 0.9% 1, 600 000 ml @ 100 mls/hr IV . Q10H [facility] Rx#:[id number] Intake, IV Titration 200 Amount Magnesium Sulfate-D5w Pmx 200 1 gm In Dextrose/Water 1 100ml.bag @ 100 mls/hr IVPB Q1H [facility] Rx#: [id number] Tube Feeding 517 799 376 Other 160 300 60 Output: Urine 750 Other: Voiding Method Bedpan Bedpan Bedpan # Voids 1 1 0 # Bowel Movements 1 ABP, PAP, CO, CI - Last Documented Arterial Blood Pressure 119/101 - Exam Physical Exam: Patient is on ventilatory support intake alert off pressor support has a tracheostomy and PEG tube placement Head: Atraumatic, normocephalic. Patient had a tracheostomy today HEENT:Neck is supple.No neck masses. No thyromegaly. Chest: Extremely diminished breath sound bilaterally, few wheezes bilaterally Cardiac Exam: Normal S1 and S2, no S3 gallop, no murmur. Patient is bit tachycardic Abdomen: Soft, nontender, no megaly, no rebound, no guarding, normal bowel sounds. PEG tube in place patient will be initiated on PEG tube feedings today Extremities: No clubbing, no edema, no cyanosis Neurological Exam: Awake and alert and does not appear to have any focal deficits - Labs CBC & Chem 7: 05/01/18 04:21 05/01/18 04:21 Labs: Abnormal Lab Results - Last 24 Hours (Table) 04/30/18 04/30/18 05/01/18 Range/Units 18:24 23:55 04:21 WBC 13.2 H (3.8-10.6) k/uL RBC 3.27 L (3.80-5.40) m/uL Hgb 9.6 L (11.4-16.0) gm/dL Hct 30.4 L (34.0-46.0) % ABG pH (7.35-7.45) ABG pCO2 (35-45) mmHg ABG HCO3 (21-25) mmol/L ABG Total CO2 (19-24) mmol/L ABG O2 Saturation (94-97) % Sodium (137-145) mmol/L Chloride (98-107) mmol/L Carbon Dioxide (22-30) mmol/L BUN (7-17) mg/dL Creatinine (0.52-1.04) mg/dL Glucose (74-99) mg/dL POC Glucose (mg/dL) 103 H 111 H (75-99) mg/dL 05/01/18 05/01/18 05/01/18 Range/Units 04:21 05:11 06:03 WBC (3.8-10.6) k/uL RBC (3.80-5.40) m/uL Hgb (11.4-16.0) gm/dL Hct (34.0-46.0) % ABG pH 7.47 H (7.35-7.45) ABG pCO2 64 H (35-45) mmHg ABG HCO3 47 H* (21-25) mmol/L ABG Total CO2 49 H (19-24) mmol/L ABG O2 Saturation 98.7 H (94-97) % Sodium 130 L (137-145) mmol/L Chloride 86 L (98-107) mmol/L Carbon Dioxide 44 H* (22-30) mmol/L BUN 20 H (7-17) mg/dL Creatinine 0.30 L (0.52-1.04) mg/dL Glucose 103 H (74-99) mg/dL POC Glucose (mg/dL) 106 H (75-99) mg/dL 05/01/18 Range/Units 11:40 WBC (3.8-10.6) k/uL RBC (3.80-5.40) m/uL Hgb (11.4-16.0) gm/dL Hct (34.0-46.0) % ABG pH (7.35-7.45) ABG pCO2 (35-45) mmHg ABG HCO3 (21-25) mmol/L ABG Total CO2 (19-24) mmol/L ABG O2 Saturation (94-97) % Sodium (137-145) mmol/L Chloride (98-107) mmol/L Carbon Dioxide (22-30) mmol/L BUN (7-17) mg/dL Creatinine (0.52-1.04) mg/dL Glucose (74-99) mg/dL POC Glucose (mg/dL) 134 H (75-99) mg/dL Assessment and Plan Plan: Acute hypoxic/hypercapnic respiratory failure - on mechanical ventilation, patient underwent tracheostomy and PEG tube placement patient is tolerating spontaneous breathing or BiPAP most of the day tachycardia secondary to dehydration which resolved now IV fluids will be discontinued -Hypervolemic hyponatremia: Improved now with IV fluids Acute COPD exacerbation Hypotension - secondary to Sepsis-which resolved now Hyponatremia History of pneumothorax and wedge resection in the past History of bilateral mastectomy with breast reconstructive surgery Nicotine dependence Moderate protein calorie malnutrition Roseline albicans in the sputum Deppression: Patient will be started on Paxil PLAN: Continue with mechanical ventilation and IV steroids. Antibiotics in the form of Zosyn. So far cultures are negative
[2018-05-01 23:25] LABS: Glucose,Whole Blood 89 mg/dL (75-99)
[2018-05-02] MEDS: LORazepam 2 MG/ML INJ IV PRN (01:09)
[2018-05-02] MEDS: IPRATROPIUM-ALBUTEROL 3 ML NEB INHALATION SCH ×6 (03:07→23:28)
[2018-05-02 05:01] LABS: ABG Base Excess 21.3 mmol/L; ABG Oxygen Saturation 97.6 % (94-97); ABG PCO2 66 mmHg (35-45); ABG PH 7.44 (7.35-7.45); ABG PO2 88 mmHg (83-108); ABG TCO2 48 mmol/L (19-24)
[2018-05-02 05:03] LABS: ABG HCO3 45 mmol/L (21-25)
[2018-05-02 05:08] LABS: Blood Urea Nitrogen 16 mg/dL (7-17); Calcium 8.8 mg/dL (8.4-10.2); Chloride 88 mmol/L (98-107); Glucose 94 mg/dL (74-99); Potassium 4.4 mmol/L (3.5-5.1); Sodium 132 mmol/L (137-145)
[2018-05-02 05:12] LABS: Basophils % (A) 0 %; Eosinophils # (A) 0.1 k/uL (0-0.7); Eosinophils % (A) 1 %; HCT 28.7 % (34.0-46.0); HGB 8.9 gm/dL (11.4-16.0); Lymphocytes # (A) 0.6 k/uL (1.0-4.8); Lymphocytes % (A) 8 %; MCH 28.9 pg (25.0-35.0); MCV 93.1 fL (80.0-100.0); Mean Platelet Volume 8.1; Monocytes # (A) 0.3 k/uL (0-1.0); Monocytes % (A) 4 %; Neutrophils # (A) 7.4 k/uL (1.3-7.7); Neutrophils % (A) 88 %; Platelet Count 298 k/uL (150-450); RBC 3.09 m/uL (3.80-5.40); RDW 13.1 % (11.5-15.5); WBC 8.4 k/uL (3.8-10.6)
[2018-05-02 05:15] LABS: Anion Gap 2 mmol/L
[2018-05-02 05:17] LABS: Carbon Dioxide 42 mmol/L (22-30)
[2018-05-02 06:24] LABS: Glucose,Whole Blood 116 mg/dL (75-99)
[2018-05-02] MEDS: FORMOTEROL FUMARATE 20 MCG/2 ML NEBU INHALATION SCH ×2 (07:16→19:33)
[2018-05-02] MEDS: BUDESONIDE 1 MG/2 ML NEBU INHALATION SCH ×2 (07:16→19:33)
[2018-05-02] MEDS: INSULIN ASPART 100 UNIT/ML 1 ML 10 ML VIAL SQ SCH ×3 (07:18→18:04)
[2018-05-02] MEDS: CHLORHEXIDINE GLUCONATE 15 ML CUP MUCOUS MEM SCH ×2 (09:33→20:58)
[2018-05-02] MEDS: PARoxetine 10 MG TAB PO SCH (09:34)
[2018-05-02] MEDS: ENOXAPARIN 40 MG/0.4 ML SYRINGE SQ SCH (09:34)
[2018-05-02] MEDS: PANTOPRAZOLE 40 MG/10 ML VIAL IV SCH (09:34)
[2018-05-02] MEDS: predniSONE 20 MG TAB PO SCH (10:09)
[2018-05-02 11:52] LABS: Albumin 2.6 g/dL (3.5-5.0); Bilirubin, Delta 0.2 mg/dL (0.0-0.2); Total Bilirubin 0.2 mg/dL (0.2-1.3); Total Protein 4.8 g/dL (6.3-8.2)
[2018-05-02 12:24] LABS: Glucose,Whole Blood 127 mg/dL (75-99)
--- NOTE | 2018-05-02 14:35 | P.PN ---
Subjective Progress Note Date: 05/02/18 On 05/02/2018 the patient is being seen in follow-up. She spent her night on assist control mode of ventilation and currently is back to a pressure support of 8 and a PEEP of 5. She is breathing comfortably. There x-ray will tidal volumes in the 300 range. No fever. No chills. Tolerating the enteral feeding without any major difficulties. No nausea. No emesis. No abdominal distention. No respiratory secretions. Tracheostomy is still in place and the patient has a Bivona tracheostomy tube. The plan is to move this patient to select specialty today. I have discontinued IV antibiotics. I'll taken off the IV Solu Medrol should she is on a prednisone burst taper. She is receiving daily physical therapy. She is still profoundly weak and she'll benefit from further physical therapy and this may be potentially a long-term wean off the mechanical ventilator. She is a bit anxious. No chest pain. No other complaints otherwise for now. Objective - Vital Signs Vital signs: Vital Signs Temp 98.9 F 05/02/18 12:00 Pulse 96 05/02/18 14:00 Resp 29 H 05/02/18 14:00 BP 106/72 05/02/18 14:00 Pulse Ox 97 05/02/18 14:00 Intake & Output 05/01/18 05/02/18 05/02/18 18:59 06:59 18:59 Intake Total 1017 864 576 Output Total 750 850 650 Balance 267 14 -74 Weight 57 kg Intake: Intake, IV Titration 200 Amount Magnesium Sulfate-D5w Pmx 200 1 gm In Dextrose/Water 1 100ml.bag @ 100 mls/hr IVPB Q1H [facility] Rx#: [id number] Tube Feeding 517 564 376 Other 300 300 200 Output: Urine 750 850 650 Other: Voiding Method Bedpan Bedpan Bedpan # Voids 0 0 0 # Bowel Movements 1 1 ABP, PAP, CO, CI - Last Documented Arterial Blood Pressure 119/101 - Exam No acute distress, the patient is awake and alert. Patient has a #[address] tracheostomy tube in place. The patient is awake and alert and responsive and following commands and answering questions appropriately. HEENT examination is grossly unremarkable. Mucous membranes are moist. No oral lesions. The patient has a midline tracheostomy tube. Neck supple. Full range of motion. No adenopathy thyromegaly or neck vein distention. Cardiovascular examination reveals regular rhythm rate. S1-S2 normal. No S3 or S4. No discernible murmur noted. Lungs reveal clear breath sounds. Her sounds are equal bilaterally. A few scattered rhonchi noted bilaterally. Abdomen soft bowel sounds are heard. No masses or tenderness. Fresh PEG tube is noted. Extremities are intact. No cyanosis clubbing or edema. Skin is without rash or lesion. The patient has bilateral breast implants this can be easily palpated on the anterior chest area.Examination of the skin revealed no evidence of significant rashes, suspicious appearing nevi or other concerning lesions. Neurologic examination is brief but nonfocal. The patient is awake and alert and following commands and answering questions. No focal neurological deficit. Motor function is showing some weakness plus/5 in all 4 extremities and this is a symmetrical weakness. No hyperreflexia. - Labs CBC & Chem 7: 05/02/18 04:24 05/02/18 04:24 Labs: Abnormal Lab Results - Last 24 Hours (Table) 05/01/18 05/02/18 05/02/18 Range/Units 18:16 04:24 04:24 RBC 3.09 L (3.80-5.40) m/uL Hgb 8.9 L (11.4-16.0) gm/dL Hct 28.7 L (34.0-46.0) % Lymphocytes # 0.6 L (1.0-4.8) k/uL ABG pCO2 (35-45) mmHg ABG HCO3 (21-25) mmol/L ABG Total CO2 (19-24) mmol/L ABG O2 Saturation (94-97) % Sodium 132 L (137-145) mmol/L Chloride 88 L (98-107) mmol/L Carbon Dioxide 42 H* (22-30) mmol/L Creatinine 0.30 L (0.52-1.04) mg/dL POC Glucose (mg/dL) 129 H (75-99) mg/dL AST (14-36) U/L ALT (9-52) U/L Total Protein (6.3-8.2) g/dL Albumin (3.5-5.0) g/dL 05/02/18 05/02/18 05/02/18 Range/Units 04:24 04:55 06:15 RBC (3.80-5.40) m/uL Hgb (11.4-16.0) gm/dL Hct (34.0-46.0) % Lymphocytes # (1.0-4.8) k/uL ABG pCO2 66 H (35-45) mmHg ABG HCO3 45 H* (21-25) mmol/L ABG Total CO2 48 H (19-24) mmol/L ABG O2 Saturation 97.6 H (94-97) % Sodium (137-145) mmol/L Chloride (98-107) mmol/L Carbon Dioxide (22-30) mmol/L Creatinine (0.52-1.04) mg/dL POC Glucose (mg/dL) 116 H (75-99) mg/dL AST 54 H (14-36) U/L ALT 124 H (9-52) U/L Total Protein 4.8 L (6.3-8.2) g/dL Albumin 2.6 L (3.5-5.0) g/dL 05/02/18 Range/Units 12:23 RBC (3.80-5.40) m/uL Hgb (11.4-16.0) gm/dL Hct (34.0-46.0) % Lymphocytes # (1.0-4.8) k/uL ABG pCO2 (35-45) mmHg ABG HCO3 (21-25) mmol/L ABG Total CO2 (19-24) mmol/L ABG O2 Saturation (94-97) % Sodium (137-145) mmol/L Chloride (98-107) mmol/L Carbon Dioxide (22-30) mmol/L Creatinine (0.52-1.04) mg/dL POC Glucose (mg/dL) 127 H (75-99) mg/dL AST (14-36) U/L ALT (9-52) U/L Total Protein (6.3-8.2) g/dL Albumin (3.5-5.0) g/dL Assessment and Plan Plan: Assessment 1 advanced COPD with an FEV1 of 23% at baseline 2 acute on top of chronic hypoxic and hypercapnic respiratory failure, post tracheostomy tube insertion for a long mechanical ventilation and failure to wean. The patient is post tracheostomy tube insertion and currently she is tolerating pressure support mode of ventilation with a pressure support of 8 and a PEEP of 5 and the patient attempting to progressively increase the time where she allows spontaneous breathing with a pressure support mode of ventilation. She is still very weak and her exhaled tidal volumes remain small and she gets anxious and fatigued with spontaneous breathing. She is in the process of being transferred to select specialty for further rehabilitation an aggressive physical therapy and strengthening and further weaning. 3 history of spontaneous pneumothorax 2006 status post resection of apical bleb and mechanical pleurodesis 4 breast cancer with bilateral mastectomy and breast reconstruction surgery and implants back in 2004 5 enteral feeding via PEG tube for nutritional support 6 hypertension, recovered 7 motor weakness secondary to prolonged ICU stay and mechanical ventilation Plan Aggressive physical therapy. Continue same treatment. Continue tube feeds. Continue anxiety treatment with Xanax. Prednisone burst taper. Transferred to select specialty. We'll follow.
[2018-05-02] MEDS: ALPRAZolam 0.25 MG TAB PO PRN (15:56)
[2018-05-02 17:54] LABS: Glucose,Whole Blood 138 mg/dL (75-99)
[2018-05-02] MEDS: DEXTROSE 5% IN WATER 1,000 ML IV SCH (19:43)
--- NOTE | 2018-05-02 20:01 | P.PN ---
Subjective 57-year-old female with history of severe end-stage COPD O2 dependent ( FEV1 is in the range of 26% at best, FEV1/FVC is 41%) came in with a few days' history of increased shortness of breath, cough, cough is productive with whitish phlegm , some wheezing, no chest pain, no fever, no chills, no hemoptysis. Patient normally sees Dr. Henderson for her COPD, and her primary care physician is Dr. Golden. Patient was just discharged about 6 days ago from [facility] when she was admitted initially with a similar episode of COPD exacerbation and tracheobronchitis. Patient had previous screening for alpha- 1 antitrypsin deficiency, and she was told it was negative by Dr. Henderson. Chest x-ray in the ER showed no evidence of active disease, there was hyperinflation consistent with COPD. She is being treated for COPD exacerbation currently. On 04/19/2018 - patient has been lying in bed and appears to be in mild respiratory distress. Patient is currently on 5 L of oxygen via nasal cannula saturating barely at 90%. As per the nursing staff report patient has been like this since morning and she has not been getting her breathing treatments . She is also on IV Solu-Medrol and antibiotics in the form of Zosyn. 04/20/2018- last night patient's respiration became labored so patient was placed on BiPAP for a few minutes but could not tolerate it and her clinical status deteriorated and rapid response team was called. She was then intubated around 6:30 PM last night. She was on Zosyn, vancomycin and doxycycline have been added to her antibiotics. Sputum cultures and blood cultures were also ordered. Patient dropped her blood pressure for which she was started on Levophed.She is currently on a ventilator. On 04/21/18 - patient remained sedated and is being mechanically ventilated. She is off of Levophed. No acute overnight events reported by nursing staff. 04/22/2018 Patient failed weaning trial today. 04/23/2018 no significant prominent compared to yesterday regarding her respiratory status is up with pulmonology dictation for further details patient appears to have failed a weaning trial event today. 04/24/2018 Patient underwent tracheostomy and PEG tube placement. 04/25/2018 Patient tolerated spontaneous breathing very well today patient's abdomen is distended, ordered medications for constipation no overnight events. 04/26/2018 no overnight events patient tolerated trach collar for more than 12 hours as today. 04/27/2018 No significant overnight events 04/28/2018 Patient is bit dehydrated with tachycardia hyperemic hyponatremia will give him IV fluids at 100 mL/h today and we'll increase the PEG tube feedings and PEG tube free water by 100 mL every 4 hours. patient is bit depressed patient will be started on Paxil . 04/29/2018 Patient's dehydration improved a bit, LTAC is working on patient's insurance. No overnight events will leave her on 100 mL of normal saline today 04/30/2018 Patient is awaiting to be discharged to LTAC. No overnight events. 05/01/2018 Patient is awaiting to be discharged to LTAC. No overnight events. View of systems CONSTITUTIONAL: no malaise, no fatigue. HEENT: No recent visual problems or hearing problems. Denied any sore throat. CARDIOVASCULAR: No orthopnea, PND, no palpitations, no syncope. GASTROINTESTINAL: No diarrhea, no nausea, no vomiting, no abdominal pain. Normoactive bowel sounds. NEUROLOGICAL: No headaches, no weakness, no numbness. HEMATOLOGICAL: Denies any bleeding or petechiae. GENITOURINARY: Denies any burning micturition, frequency, or urgency. MUSCULOSKELETAL/RHEUMATOLOGICAL: Denies any joint pain, swelling, or any muscle pain. ENDOCRINE: Denies any polyuria or polydipsia. Objective - Vital Signs Vital signs: Vital Signs Temp 99 F 05/02/18 16:00 Pulse 93 05/02/18 19:53 Resp 24 05/02/18 19:00 BP 92/64 05/02/18 19:00 Pulse Ox 99 05/02/18 19:00 Intake & Output 05/02/18 05/02/18 05/03/18 06:59 18:59 06:59 Intake Total 864 864 47 Output Total 850 1650 0 Balance 14 -786 47 Weight 57 kg Intake: Tube Feeding 564 564 47 Other 300 300 Output: Urine 850 1650 0 Other: Voiding Method Bedpan Bedpan # Voids 0 1 # Bowel Movements 1 1 ABP, PAP, CO, CI - Last Documented Arterial Blood Pressure 119/101 - Exam Physical Exam: Patient is on ventilatory support intake alert off pressor support has a tracheostomy and PEG tube placement Head: Atraumatic, normocephalic. Patient had a tracheostomy today HEENT:Neck is supple.No neck masses. No thyromegaly. Chest: Extremely diminished breath sound bilaterally, few wheezes bilaterally Cardiac Exam: Normal S1 and S2, no S3 gallop, no murmur. Patient is bit tachycardic Abdomen: Soft, nontender, no megaly, no rebound, no guarding, normal bowel sounds. PEG tube in place patient will be initiated on PEG tube feedings today Extremities: No clubbing, no edema, no cyanosis Neurological Exam: Awake and alert and does not appear to have any focal deficits - Labs CBC & Chem 7: 05/02/18 04:24 05/02/18 04:24 Labs: Abnormal Lab Results - Last 24 Hours (Table) 05/02/18 05/02/18 05/02/18 Range/Units 04:24 04:24 04:24 RBC 3.09 L (3.80-5.40) m/uL Hgb 8.9 L (11.4-16.0) gm/dL Hct 28.7 L (34.0-46.0) % Lymphocytes # 0.6 L (1.0-4.8) k/uL ABG pCO2 (35-45) mmHg ABG HCO3 (21-25) mmol/L ABG Total CO2 (19-24) mmol/L ABG O2 Saturation (94-97) % Sodium 132 L (137-145) mmol/L Chloride 88 L (98-107) mmol/L Carbon Dioxide 42 H* (22-30) mmol/L Creatinine 0.30 L (0.52-1.04) mg/dL POC Glucose (mg/dL) (75-99) mg/dL AST 54 H (14-36) U/L ALT 124 H (9-52) U/L Total Protein 4.8 L (6.3-8.2) g/dL Albumin 2.6 L (3.5-5.0) g/dL 05/02/18 05/02/18 05/02/18 Range/Units 04:55 06:15 12:23 RBC (3.80-5.40) m/uL Hgb (11.4-16.0) gm/dL Hct (34.0-46.0) % Lymphocytes # (1.0-4.8) k/uL ABG pCO2 66 H (35-45) mmHg ABG HCO3 45 H* (21-25) mmol/L ABG Total CO2 48 H (19-24) mmol/L ABG O2 Saturation 97.6 H (94-97) % Sodium (137-145) mmol/L Chloride (98-107) mmol/L Carbon Dioxide (22-30) mmol/L Creatinine (0.52-1.04) mg/dL POC Glucose (mg/dL) 116 H 127 H (75-99) mg/dL AST (14-36) U/L ALT (9-52) U/L Total Protein (6.3-8.2) g/dL Albumin (3.5-5.0) g/dL 05/02/18 Range/Units 17:52 RBC (3.80-5.40) m/uL Hgb (11.4-16.0) gm/dL Hct (34.0-46.0) % Lymphocytes # (1.0-4.8) k/uL ABG pCO2 (35-45) mmHg ABG HCO3 (21-25) mmol/L ABG Total CO2 (19-24) mmol/L ABG O2 Saturation (94-97) % Sodium (137-145) mmol/L Chloride (98-107) mmol/L Carbon Dioxide (22-30) mmol/L Creatinine (0.52-1.04) mg/dL POC Glucose (mg/dL) 138 H (75-99) mg/dL AST (14-36) U/L ALT (9-52) U/L Total Protein (6.3-8.2) g/dL Albumin (3.5-5.0) g/dL Assessment and Plan Plan: Acute hypoxic/hypercapnic respiratory failure - on mechanical ventilation, patient underwent tracheostomy and PEG tube placement patient is tolerating spontaneous breathing or BiPAP most of the day tachycardia secondary to dehydration which resolved now IV fluids will be discontinued -Hypervolemic hyponatremia: Improved now with IV fluids Acute COPD exacerbation Hypotension - secondary to Sepsis-which resolved now Hyponatremia History of pneumothorax and wedge resection in the past History of bilateral mastectomy with breast reconstructive surgery Nicotine dependence Moderate protein calorie malnutrition Roseline albicans in the sputum Deppression: Patient will be started on Paxil PLAN: Continue with mechanical ventilation and IV steroids. Antibiotics in the form of Zosyn. So far cultures are negative
[2018-05-02] MEDS: SENNOSIDES 8.6 MG TAB PO SCH (20:58)
[2018-05-02 23:40] LABS: Glucose,Whole Blood 114 mg/dL (75-99)
[2018-05-03] MEDS: INSULIN ASPART 100 UNIT/ML 1 ML 10 ML VIAL SQ SCH ×3 (00:04→13:56)
[2018-05-03] MEDS: ACETAMINOPHEN TAB 325 MG TAB PO PRN (00:09)
[2018-05-03] MEDS: IPRATROPIUM-ALBUTEROL 3 ML NEB INHALATION SCH ×3 (03:24→11:09)
[2018-05-03 05:18] LABS: Basophils % (A) 0 %; Eosinophils # (A) 0.1 k/uL (0-0.7); Eosinophils % (A) 1 %; HCT 27.5 % (34.0-46.0); HGB 8.5 gm/dL (11.4-16.0); Lymphocytes # (A) 0.7 k/uL (1.0-4.8); Lymphocytes % (A) 11 %; MCH 28.9 pg (25.0-35.0); MCHC 30.9 g/dL (31.0-37.0); MCV 93.6 fL (80.0-100.0); Monocytes # (A) 0.3 k/uL (0-1.0); Monocytes % (A) 4 %; Neutrophils # (A) 5.2 k/uL (1.3-7.7); Neutrophils % (A) 82 %; Platelet Count 268 k/uL (150-450); RBC 2.94 m/uL (3.80-5.40); RDW 13.3 % (11.5-15.5); WBC 6.3 k/uL (3.8-10.6)
[2018-05-03 05:34] LABS: ALT 110 U/L (9-52); AST 48 U/L (14-36); Albumin 2.7 g/dL (3.5-5.0); Alkaline Phosphatase 93 U/L (38-126); Bilirubin, Delta 0.2 mg/dL (0.0-0.2); Blood Urea Nitrogen 16 mg/dL (7-17); Calcium 8.9 mg/dL (8.4-10.2); Chloride 89 mmol/L (98-107); Glucose 100 mg/dL (74-99); Magnesium 1.7 mg/dL (1.6-2.3); Phosphorus 3.2 mg/dL (2.5-4.5); Potassium 4.3 mmol/L (3.5-5.1); Sodium 132 mmol/L (137-145); Total Bilirubin 0.2 mg/dL (0.2-1.3); Total Protein 4.9 g/dL (6.3-8.2)
[2018-05-03 05:40] LABS: Anion Gap 1 mmol/L
[2018-05-03 05:41] LABS: Carbon Dioxide 42 mmol/L (22-30)
[2018-05-03 06:25] LABS: Glucose,Whole Blood 106 mg/dL (75-99)
[2018-05-03] MEDS: MAGNESIUM SULFATE-D5W PMX 1 GM in DEXTROSE/WATER 1 100ML.BAG IVPB SCH ×2 (06:39→08:40)
--- NOTE | 2018-05-03 07:21 | XR ---
EXAMINATION TYPE: XR chest 1V portable DATE OF EXAM: 05/03/2018 Comparison: 05/01/2018 Clinical History: 57-year-old female trach/ventilator Findings: Heart remains normal size. Bilateral hilar prominence is unchanged. Tracheostomy cannula is in place. Stable biapical pleural parenchymal scarring with surgical changes at the right apex. No consolidati on or pleural effusion. Impression: Stable changes of COPD, biapical pleural-parenchymal scarring, and right apical postsurgical change.
[2018-05-03] MEDS: BUDESONIDE 1 MG/2 ML NEBU INHALATION SCH (07:31)
[2018-05-03] MEDS: FORMOTEROL FUMARATE 20 MCG/2 ML NEBU INHALATION SCH (07:31)
[2018-05-03] MEDS: predniSONE 20 MG TAB PO SCH (08:37)
[2018-05-03] MEDS: CHLORHEXIDINE GLUCONATE 15 ML CUP MUCOUS MEM SCH (08:37)
[2018-05-03] MEDS: PARoxetine 10 MG TAB PO SCH (08:37)
[2018-05-03] MEDS: PANTOPRAZOLE 40 MG/10 ML VIAL IV SCH (08:37)
[2018-05-03] MEDS: ALPRAZolam 0.25 MG TAB PO PRN (08:37)
[2018-05-03] MEDS: ENOXAPARIN 40 MG/0.4 ML SYRINGE SQ SCH (08:37)
[2018-05-03 11:08] LABS: Appearance,Urine Cloudy (Clear); Bacteria,Urine Rare /hpf; Bilirubin,Urine Negative (Negative); Blood,Urine Negative (Negative); Budding Yeast,Urine Few /hpf; Color,Urine Light Yellow; Glucose,Urine (UA) Negative (Negative); Ketones,Urine Negative (Negative); Leukocyte Esterase,Urine Negative (Negative); Mucus,Urine Rare /hpf; Nitrite,Urine Negative (Negative); Protein,Urine Negative (Negative); RBC,Urine 3 /hpf (0-5); Specific Gravity,Urine 1.008 (1.001-1.035); Squamous Epithelial Cell,Urine <1 /hpf (0-4); WBC,Urine 2 /hpf (0-5)
--- NOTE | 2018-05-03 12:22 | P.PN ---
Subjective Progress Note Date: 05/03/18 On 05/02/2018 the patient is being seen in follow-up. She spent her night on assist control mode of ventilation and currently is back to a pressure support of 8 and a PEEP of 5. She is breathing comfortably. There x-ray will tidal volumes in the 300 range. No fever. No chills. Tolerating the enteral feeding without any major difficulties. No nausea. No emesis. No abdominal distention. No respiratory secretions. Tracheostomy is still in place and the patient has a Bivona tracheostomy tube. The plan is to move this patient to [facility] specialty today. I have discontinued IV antibiotics. I'll taken off the IV Solu Medrol should she is on a prednisone burst taper. She is receiving daily physical therapy. She is still profoundly weak and she'll benefit from further physical therapy and this may be potentially a long-term wean off the mechanical ventilator. She is a bit anxious. No chest pain. No other complaints otherwise for now. On 05/03/2089 seeing Sue for a follow-up. The patient is looking well pH is wide awake. Alert and conscious pH is on a pressure support mode of ventilation at the same setting with a pressure support of 8 and a PEEP of 5. Tidal volume returned on the mechanical ventilator is around 350-380. No fever. No chills. No respiratory secretions. Hemodynamic is stable. Tolerating her diet. Currently on a prednisone burst taper. There was obvious issues issues relating her transfer to select specialty and this will be done today. No other significant events otherwise overnight. We are trying to go with daily pressure support mode of ventilation for this patient. That hemoglobin is at 8.5. White cell count is not elevated at 6.3. Glucose is 106. Having regular bowel movements. Objective - Vital Signs Vital signs: Vital Signs Temp 98.7 F 05/03/18 08:00 Pulse 96 05/03/18 11:19 Resp 28 H 05/03/18 10:00 BP 108/59 05/03/18 10:00 Pulse Ox 93 L 05/03/18 10:00 Intake & Output 05/02/18 05/03/18 05/03/18 18:59 06:59 18:59 Intake Total 864 1105 488 Output Total 1650 725 350 Balance -786 380 138 Weight 57.7 kg Intake: IV 200 Magnesium Sulfate-D5w Pmx 200 1 gm In Dextrose/Water 1 100ml.bag @ 100 mls/hr IVPB Q1H [facility] Rx#: [id number] Tube Feeding 564 705 188 Other 300 400 100 Output: Urine 1650 725 350 Stool 0 Other: Voiding Method Bedpan Bedpan # Voids 1 0 0 # Bowel Movements 1 0 ABP, PAP, CO, CI - Last Documented Arterial Blood Pressure 119/101 - Exam No acute distress, the patient is awake and alert. Patient has a #8 [address] tracheostomy tube in place. The patient is awake and alert and responsive and following commands and answering questions appropriately. HEENT examination is grossly unremarkable. Mucous membranes are moist. No oral lesions. The patient has a midline tracheostomy tube. Neck supple. Full range of motion. No adenopathy thyromegaly or neck vein distention. Cardiovascular examination reveals regular rhythm rate. S1-S2 normal. No S3 or S4. No discernible murmur noted. Lungs reveal clear breath sounds. Her sounds are equal bilaterally. A few scattered rhonchi noted bilaterally. Abdomen soft bowel sounds are heard. No masses or tenderness. Fresh PEG tube is noted. Extremities are intact. No cyanosis clubbing or edema. Skin is without rash or lesion. The patient has bilateral breast implants this can be easily palpated on the anterior chest area.Examination of the skin revealed no evidence of significant rashes, suspicious appearing nevi or other concerning lesions. Neurologic examination is brief but nonfocal. The patient is awake and alert and following commands and answering questions. No focal neurological deficit. Motor function is showing some weakness plus/5 in all 4 extremities and this is a symmetrical weakness. No hyperreflexia. - Labs CBC & Chem 7: 05/03/18 05:08 05/03/18 05:08 Labs: Abnormal Lab Results - Last 24 Hours (Table) 05/02/18 05/02/18 05/02/18 Range/Units 12:23 17:52 23:38 RBC (3.80-5.40) m/uL Hgb (11.4-16.0) gm/dL Hct (34.0-46.0) % MCHC (31.0-37.0) g/dL Lymphocytes # (1.0-4.8) k/uL Sodium (137-145) mmol/L Chloride (98-107) mmol/L Carbon Dioxide (22-30) mmol/L Creatinine (0.52-1.04) mg/dL Glucose (74-99) mg/dL POC Glucose (mg/dL) 127 H 138 H 114 H (75-99) mg/dL AST (14-36) U/L ALT (9-52) U/L Total Protein (6.3-8.2) g/dL Albumin (3.5-5.0) g/dL Urine Appearance (Clear) Urine Bacteria (None) /hpf Urine Mucus (None) /hpf Urine Yeast (Budding) (None) /hpf 05/03/18 05/03/18 05/03/18 Range/Units 05:08 05:08 06:24 RBC 2.94 L (3.80-5.40) m/uL Hgb 8.5 L (11.4-16.0) gm/dL Hct 27.5 L (34.0-46.0) % MCHC 30.9 L (31.0-37.0) g/dL Lymphocytes # 0.7 L (1.0-4.8) k/uL Sodium 132 L (137-145) mmol/L Chloride 89 L (98-107) mmol/L Carbon Dioxide 42 H* (22-30) mmol/L Creatinine 0.30 L (0.52-1.04) mg/dL Glucose 100 H (74-99) mg/dL POC Glucose (mg/dL) 106 H (75-99) mg/dL AST 48 H (14-36) U/L ALT 110 H (9-52) U/L Total Protein 4.9 L (6.3-8.2) g/dL Albumin 2.7 L (3.5-5.0) g/dL Urine Appearance (Clear) Urine Bacteria (None) /hpf Urine Mucus (None) /hpf Urine Yeast (Budding) (None) /hpf 05/03/18 Range/Units 10:50 RBC (3.80-5.40) m/uL Hgb (11.4-16.0) gm/dL Hct (34.0-46.0) % MCHC (31.0-37.0) g/dL Lymphocytes # (1.0-4.8) k/uL Sodium (137-145) mmol/L Chloride (98-107) mmol/L Carbon Dioxide (22-30) mmol/L Creatinine (0.52-1.04) mg/dL Glucose (74-99) mg/dL POC Glucose (mg/dL) (75-99) mg/dL AST (14-36) U/L ALT (9-52) U/L Total Protein (6.3-8.2) g/dL Albumin (3.5-5.0) g/dL Urine Appearance Cloudy H (Clear) Urine Bacteria Rare H (None) /hpf Urine Mucus Rare H (None) /hpf Urine Yeast (Budding) Few H (None) /hpf Assessment and Plan Plan: Assessment 1 advanced COPD with an FEV1 of 23% at baseline 2 acute on top of chronic hypoxic and hypercapnic respiratory failure, post tracheostomy tube insertion for a long mechanical ventilation and failure to wean. The patient is post tracheostomy tube insertion and currently she is tolerating pressure support mode of ventilation with a pressure support of 8 and a PEEP of 5 3 history of spontaneous pneumothorax 2006 status post resection of apical bleb and mechanical pleurodesis 4 breast cancer with bilateral mastectomy and breast reconstruction surgery and implants back in 2004 5 enteral feeding via PEG tube for nutritional support 6 hypertension, recovered 7 motor weakness secondary to prolonged ICU stay and mechanical ventilation Plan Transferred to [facility] specialty's a day. No active issues from the pulmonary critical care standpoint. The patient will need further strengthening and physical therapy that should help her wean off the mechanical ventilator. This may be potentially prolong wean. She will be going to select specialty today.
--- NOTE | 2018-05-03 12:34 | P.DS ---
Providers Date of admission: 04/17/18 11:17 Attending physician: Leesa Resendiz Consults: 04/17/18 11:17 Consult Physician Routine Consulting Provider: Macho Persaud Consult Reason/Comments: COPD Do you want consulting provider notified?: Yes 04/17/18 15:53 Consult Physician Routine Consulting Provider: Federico Dos Santos Consult Reason/Comments: Fever/Increased WBC Do you want consulting provider notified?: Already Contacted 04/17/18 15:54 Consult Physician Routine Consulting Provider: Sumit Reddy Consult Reason/Comments: chest pain Do you want consulting provider notified?: Already Contacted 04/17/18 22:33 Consult Physician Stat Consulting Provider: Yuliana Chinchilla Consult Reason/Comments: hyponatremia Do you want consulting provider notified?: Yes 04/22/18 08:47 Consult Physician Routine Consulting Provider: Theron Prabhakar Consult Reason/Comments: pt on vent, work up for Trach and peg Do you want consulting provider notified?: Yes Primary care physician: [facility] Course: this is a pleasant 57 yo F with pmh of severe COPD, with a FEV1 of 23% and dependent on home O2, who presented at [facility] on 2017 with severe acute exacerbation of her COPD, and hyponatremia. 2 days and to her admission patient developed acute respiratory failure secondary to COPD. Patient was intubated for her respiratory distress. Patient had tracheostomy and PEG tube placement on 04/23/2018. Currently she is on mechanical vent. IV antibiotics were discontinued. And she is on prednisone burst taper. She is generally weak and didn't discharge to rehab for further strengthening training. Patient denies chest pain or dyspnea, no change in urine or bowel habits. No fever. Liver enzymes are trending down, please follow-up LFTs. Computed tomography scan of the chest with IV contrast on 04/29/2018 shows: Bilateral hilar adenopathy and diffuse nodular opacity. Findings fever infectious or inflammatory small airway disease. Follow-up after treatment is recommended to ensure no underlying pulmonary nodule given the multiple bilateral pulmonary nodules. Hilar mediastinal adenopathy is likely reactive to the above a process. Echo shows ejection fraction 55-60% with normal wall thickness. Patient will be discharged on tapering steroids as per pulmonary recommendation. She had abnormal UA at that time she was sick. Repeat UA was unremarkable from today. Patient denies urinary signs and symptoms. The plan is to move this patient to select specialty today. Patient was cleared by pulmonary and other consultants for discharge Problem list and management plan was discussed with the patient and she agrees Patient is found stable and can be discharged to rehab but she needs follow-up as an outpatient. I discussed with the patient's and mother at bedside upon request of the patient to follow-up with her lung Doctor home visitor in 1 week , patient states she prefers to follow up with Dr. Henderson was also her primary care doctor, I elevated the patient about the results of abnormal CAT scan with multiple nodules which mostly related to her disease, however I instructed her to follow up with her lung doctor, risks including but not limited to cancer explained to the patient and she verbalized understanding and acceptance. also instructed to follow-up with long-term physician in 1-2 days, and they agree. No appointments couldn't be made for the patient as today Is weekend GENERAL: The patient is alert and oriented x3, not in any acute distress. Well developed, well nourished. She can answer with a few warts with whispering sounds HEENT: Pupils are round and equally reacting to light. EOMI. No scleral icterus. No conjunctival pallor. Normocephalic, atraumatic. No pharyngeal erythema. No thyromegaly. CARDIOVASCULAR: S1 and S2 present. No murmurs, rubs, or gallops. PULMONARY: Chest is clear to auscultation, no wheezing or crackles. Tracheostomy tube in a Place, no surrounding inflammation of the orifice. Patient on mechanical ventilator ABDOMEN: Soft, nontender, nondistended, normoactive bowel sounds. No palpable organomegaly. PEG tube MUSCULOSKELETAL: No joint swelling or deformity. EXTREMITIES: No cyanosis, clubbing, or pedal edema. NEUROLOGICAL: Gross neurological examination did not reveal any focal deficits. SKIN: No rashes. Time more than 35 minutes Patient Condition at Discharge: Good Plan - Discharge Summary Discharge Rx Participant: No New Discharge Prescriptions: No Action Budesonide-Formot 160-4.5 Mcg [Symbicort 160-4.5 Mcg Inhaler] 2 puff INHALATION RT-BID #120 puff Ipratropium Nebulized [Atrovent Nebulized] 0.5 mg INHALATION RT-QID Albuterol Nebulized [Ventolin Nebulized] 2.5 mg INHALATION RT-QID Albuterol Inhaler [Ventolin Hfa Inhaler] 1 - 2 puff INHALATION RT-Q6H PRN PRN Reason: Wheezing predniSONE See Taper PO DAILY guaiFENesin [Mucinex] 1,200 mg PO Q12HR PRN PRN Reason: Congestion Discharge Medication List Budesonide-Formot 160-4.5 Mcg [Symbicort 160-4.5 Mcg Inhaler] 2 puff INHALATION RT-BID #120 puff 07/07/17 [Rx] Albuterol Inhaler [Ventolin Hfa Inhaler] 1 - 2 puff INHALATION RT-Q6H PRN [History] Albuterol Nebulized [Ventolin Nebulized] 2.5 mg INHALATION RT-QID 04/05/18 [ History] Ipratropium Nebulized [Atrovent Nebulized] 0.5 mg INHALATION RT-QID 04/05/18 [ History] guaiFENesin [Mucinex] 1,200 mg PO Q12HR PRN 04/17/18 [History] predniSONE See Taper PO DAILY 04/17/18 [History] Follow up Appointment(s)/Referral(s): Abe Henderson DO [Primary Care Provider] - 1 Week (for your abnormal CAT scan, tracheostomy and COPD disease) Activity/Diet/Wound Care/Special Instructions: cardiac diet activity as tolerated continue with tracheotomy management and follow up with your home visitor and PCP Discharge Disposition: TRANSFER TO SNF/ECF
[2018-05-03 14:31] VITALS: BP 108/63; PULSE 106; RESP 26; TEMP 97.8
[2018-05-04] MEDS ORDERED: predniSONE 10 MG TAB PO SCH (09:00)
[2018-05-09] MEDS ORDERED: predniSONE 20 MG TAB PO SCH (09:00)
[2018-05-14] MEDS ORDERED: predniSONE 10 MG TAB PO SCH (09:00)
[2018-05-19] MEDS ORDERED: predniSONE 5 MG TAB PO SCH (09:00)
== END 2018-05-03 14:46 | DRG 4 ==
LOC: EC 08:44 → 5MS5E 11:17 → 6ICU 04-19 18:46
PROVIDERS: ADMIT Internal Medicine; ATTEND Internal Medicine
PROC: 4A133J1 Monitoring of Arterial Pulse, Peripheral, Percutaneous Approach (ICD-10-PCS; principal; 2018-04-19)
PROC: 0BH18EZ Insertion of Endotracheal Airway into Trachea, Via Natural or Artificial Opening Endoscopic (ICD-10-PCS; principal; 2018-04-19)
PROC: 03HY32Z Insertion of Monitoring Device into Upper Artery, Percutaneous Approach (ICD-10-PCS; principal; 2018-04-19)
PROC: 4A133B1 Monitoring of Arterial Pressure, Peripheral, Percutaneous Approach (ICD-10-PCS; principal; 2018-04-19)
PROC: 5A1955Z Respiratory Ventilation, Greater than 96 Consecutive Hours (ICD-10-PCS; principal; 2018-04-19)
PROC: 0DH63UZ Insertion of Feeding Device into Stomach, Percutaneous Approach (ICD-10-PCS; 2018-04-23 14:00)
PROC: 0B110F4 Bypass Trachea to Cutaneous with Tracheostomy Device, Open Approach (ICD-10-PCS; 2018-04-23 14:00)
DX: A41.9 Sepsis, unspecified organism (principal); B37.1 Pulmonary candidiasis; J96.21 Acute and chronic respiratory failure with hypoxia; J96.22 Acute and chronic respiratory failure with hypercapnia; R65.21 Severe sepsis with septic shock; E44.0 Moderate protein-calorie malnutrition; E87.1 Hypo-osmolality and hyponatremia; E87.4 Mixed disorder of acid-base balance; Z99.11 Dependence on respirator [ventilator] status; E86.0 Dehydration; E86.1 Hypovolemia; I45.10 Unspecified right bundle-branch block; J98.01 Acute bronchospasm; J43.9 Emphysema, unspecified; K59.00 Constipation, unspecified; Z79.51 Long term (current) use of inhaled steroids; Z79.52 Long term (current) use of systemic steroids; Z80.1 Family history of malignant neoplasm of trachea, bronchus and lung; Z80.3 Family history of malignant neoplasm of breast; Z82.49 Family history of ischemic heart disease and other diseases of the circulatory system; Z82.5 Family history of asthma and other chronic lower respiratory diseases; Z83.3 Family history of diabetes mellitus; Z85.3 Personal history of malignant neoplasm of breast; Z87.01 Personal history of pneumonia (recurrent); Z87.891 Personal history of nicotine dependence; Z90.13 Acquired absence of bilateral breasts and nipples; Z98.82 Breast implant status; Z99.81 Dependence on supplemental oxygen; Z88.1 Allergy status to other antibiotic agents
CPT/HCPCS: 36415; 36600; 43246; 71045; 71046; 71260; 80048; 80053; 80076; 80202; 81001; 81003; 82533; 82550; 82553; 82805; 83036; 83605; 83735; 83880; 83935; 84100; 84145; 84300; 84443; 84484; 85025; 85027; 85610; 85730; 86850; 86900; 86901; 87040; 87070; 87086; 87205; 87502; 93005; 93306; 94002; 94003; 94640; 94644; 94660; 94760; 96365; 96366; 96375; 99285

== ENCOUNTER 2018-12-12 07:41 | Inpatient (IN) | payer OTHER ==
[2018-12-12 08:28] LABS: Basophils # (A) 0.1 k/uL (0-0.2); Basophils % (A) 1 %; Eosinophils # (A) 0.3 k/uL (0-0.7); Eosinophils % (A) 3 %; HCT 42.2 % (34.0-46.0); HGB 12.6 gm/dL (11.4-16.0); Hypochromasia Marked; Lymphocytes # (A) 2.4 k/uL (1.0-4.8); Lymphocytes % (A) 24 %; MCH 27.6 pg (25.0-35.0); MCHC 29.9 g/dL (31.0-37.0); Mean Platelet Volume 7.4; Monocytes # (A) 0.5 k/uL (0-1.0); Monocytes % (A) 5 %; Neutrophils # (A) 6.8 k/uL (1.3-7.7); Neutrophils % (A) 67 %; Platelet Count 234 k/uL (150-450); RBC 4.59 m/uL (3.80-5.40); RDW 13.6 % (11.5-15.5); WBC 10.2 k/uL (3.8-10.6)
[2018-12-12 08:37] LABS: INR 0.9 (<1.2); Partial Thromboplastin Time 23.4 sec (22.0-30.0)
[2018-12-12 08:42] LABS: ALT 46 U/L (9-52); AST 23 U/L (14-36); Albumin 3.8 g/dL (3.5-5.0); Alkaline Phosphatase 106 U/L (38-126); Blood Urea Nitrogen 19 mg/dL (7-17); Calcium 9.7 mg/dL (8.4-10.2); Chloride 98 mmol/L (98-107); Glucose 109 mg/dL (74-99); Magnesium 1.8 mg/dL (1.6-2.3); Potassium 4.3 mmol/L (3.5-5.1); Sodium 143 mmol/L (137-145); Total Bilirubin 0.5 mg/dL (0.2-1.3); Total Protein 6.8 g/dL (6.3-8.2)
--- NOTE | 2018-12-12 08:46 | ED ---
General Adult HPI - General Source: family, EMS, RN notes reviewed Mode of arrival: EMS Limitations: language barrier <Red Carrillo - Last Filed: 12/12/18 09:48> <Alberto Price - Last Filed: 12/12/18 09:55> - General Chief complaint: Shortness of Breath Stated complaint: COUGHING UP BLOOD Time Seen by Provider: 12/12/18 08:08 - History of Present Illness Initial comments: 58-year-old female presents emergency department with family with complaints of bloody sputum from her trach. Patient had increased shortness of breath and congestion last 2 days. Patient has had a trach since April 2018 secondary to COPD. Patient's magisterial district judge is Dr. Sandra. Patient reports low-grade temp at home denies any sick contacts. Patient does not currently use humidified air at home. Patient denies chest pain, nausea vomiting. Patient denies any leg swelling no history of CHF. Patient's report pulse ox was 70 home with EMS arrived. (Red Carrillo) - Related Data Home Medications Medication Instructions Recorded Confirmed Ipratropium-Albuterol Nebulize 3 ml INHALATION RT-QID 12/12/18 12/12/18 [Duoneb 0.5 mg-3 mg/3 ml Soln] PARoxetine HCL [Paxil] 40 mg PO DAILY 12/12/18 12/12/18 clonazePAM [KlonoPIN] 1 mg PO QID 12/12/18 12/12/18 predniSONE 10 mg PO DAILY 12/12/18 12/12/18 Previous Rx's Medication Instructions Recorded Budesonide-Formot 160-4.5 Mcg 2 puff INHALATION RT-BID #120 puff 07/07/17 [Symbicort 160-4.5 Mcg Inhaler] Allergies Allergy/AdvReac Type Severity Reaction Status Date / Time levofloxacin [From Levaquin] AdvReac Chest Pain Verified 12/12/18 09:47 Review of Systems ROS Other: All systems not noted in ROS Statement are negative. <Red Carrillo - Last Filed: 12/12/18 09:48> ROS Other: All systems not noted in ROS Statement are negative. <Alberto Price - Last Filed: 12/12/18 09:55> ROS Statement: Those systems with pertinent positive or pertinent negative responses have been documented in the HPI. Past Medical History Past Medical History: Cancer, COPD, Pneumonia Additional Past Medical History / Comment(s): Pt recently admitted to [facility] on for acute exacerbation COPD/purulent tracheobronchitis. Other hx: Chronic respiratory failure with home O2 at 2L/NC ATC, R sided spontaneous pneumos in 2005 with surgery and again in 2017 with chest tube, breast cancer with bilateral mastectomies/reconstruction. History of Any Multi-Drug Resistant Organisms: None Reported Past Surgical History: Ablation, Breast Surgery Additional Past Surgical History / Comment(s): Bilateral mastectomies with bilateral breast reconstruction in 2004, uterine ablation in 2009, spontaneous pneumothorax in 2006 with wedge resection and mechanical pleurodesis, right pneumothorax june 2017 with chest tube placement, colonoscopy. Past Anesthesia/Blood Transfusion Reactions: No Reported Reaction Past Psychological History: No Psychological Hx Reported Smoking Status: Former smoker Past Alcohol Use History: None Reported Past Drug Use History: None Reported - Past Family History Mother Family Medical History: Diabetes Mellitus, Hypertension Additional Family Medical History / Comment(s): mother is 84 Father Family Medical History: COPD Additional Family Medical History / Comment(s): lung cancer Sister(s) Additional Family Medical History / Comment(s): She has 4 sisters, 1 sister with history of breast cancer, and thyroid disorder, 1 sister with history of rheumatoid arthritis, and another sister with history of lupus. Brother(s) Additional Family Medical History / Comment(s): She has 3 brothers, 1 brother has diabetes mellitus type 2. <Red Carrillo - Last Filed: 12/12/18 09:48> General Exam Limitations: language barrier General appearance: alert, in no apparent distress Head exam: Present: atraumatic, normocephalic, normal inspection Eye exam: Present: normal appearance, PERRL, EOMI. Absent: scleral icterus, conjunctival injection, periorbital swelling Neck exam: Present: full ROM. Absent: normal inspection (trach noted, bloody sputum, drainage noted), tenderness, meningismus, lymphadenopathy Respiratory exam: Present: respiratory distress, rales, rhonchi. Absent: normal lung sounds bilaterally, wheezes, stridor Cardiovascular Exam: Present: regular rate, normal rhythm, normal heart sounds. Absent: systolic murmur, diastolic murmur, rubs, gallop, clicks Neurological exam: Present: alert, oriented X3, CN II-XII intact Skin exam: Present: warm, dry, intact, normal color. Absent: rash <Red Carrillo - Last Filed: 12/12/18 09:48> Course <Red Carrillo - Last Filed: 12/12/18 09:48> <Alberto Price - Last Filed: 12/12/18 09:55> Vital Signs 12/12/18 12/12/18 12/12/18 07:59 08:50 09:06 Temperature 99.5 F Pulse Rate 96 87 Respiratory 18 22 24 Rate Blood Pressure 148/82 118/77 O2 Sat by Pulse 86 L 89 L Oximetry 12/12/18 09:10 Temperature Pulse Rate 93 Respiratory 20 Rate Blood Pressure 138/83 O2 Sat by Pulse 96 Oximetry - Reevaluation(s) Reevaluation #1: 12/12/18 09:26 Patient was placed on mechanical ventilation secondary to respiratory distress, fatigue. Patient is improved after being on vent. Antibiotics are ordered for possible pneumonia. (Red Carrillo) EKG Findings - EKG Comments: EKG Findings:: EKG performed at 8:21 normal sinus rhythm with incomplete right bundle rate of 96 TX 142 QRS 92, QT/QTC 338/427 <Red Carrillo - Last Filed: 12/12/18 09:48> Medical Decision Making - Lab Data Result diagrams: 12/12/18 07:55 12/12/18 07:55 <Red Carrillo - Last Filed: 12/12/18 09:48> - Lab Data Result diagrams: 12/12/18 07:55 12/12/18 07:55 <Alberto Price - Last Filed: 12/12/18 09:55> - Medical Decision Making 50-year-old female presents emergency department for shortness of breath, bloody 's from her trach. There is concerns for early signs of pneumonia in the right perihilar. Patient was given Rocephin, azithromycin. Patient was placed on mechanical ventilation secondary to rest very stressed which has improved her symptoms. Patient states that she does feel improved. Patient will be admitted to the hospital for IV antibiotics and further evaluation by Dr. henderson. (Red Carrillo) Patient reevaluated by myself, Dr. Price. Patient resting comfortably on the vent. Somewhat diminished lung sounds on auscultation. I did review and agree with the findings. This includes all diagnostic interpretations and treatment plan. Chest x-ray reviewed. Patient and family are updated. Case was discussed in detail with Dr. Henderson who will consult on this patient and she will go to the ICU at this time. Patient is on vent. Dr. Resendiz has been paged for admission was previously admitted this patient. Case was discussed with Dr. Rivera, who will admit. (Alberto Price) - Lab Data Lab Results 12/12/18 12/12/18 12/12/18 Range/Units 07:55 07:55 07:55 WBC 10.2 (3.8-10.6) k/uL RBC 4.59 (3.80-5.40) m/uL Hgb 12.6 (11.4-16.0) gm/dL Hct 42.2 (34.0-46.0) % MCV 92.0 (80.0-100.0) fL MCH 27.6 (25.0-35.0) pg MCHC 29.9 L (31.0-37.0) g/dL RDW 13.6 (11.5-15.5) % Plt Count 234 (150-450) k/uL Neutrophils % 67 % Lymphocytes % 24 % Monocytes % 5 % Eosinophils % 3 % Basophils % 1 % Neutrophils # 6.8 (1.3-7.7) k/uL Lymphocytes # 2.4 (1.0-4.8) k/uL Monocytes # 0.5 (0-1.0) k/uL Eosinophils # 0.3 (0-0.7) k/uL Basophils # 0.1 (0-0.2) k/uL Hypochromasia Marked PT (9.0-12.0) sec INR (<1.2) APTT (22.0-30.0) sec Sodium 143 (137-145) mmol/L Potassium 4.3 (3.5-5.1) mmol/L Chloride 98 (98-107) mmol/L Carbon Dioxide 39 H (22-30) mmol/L Anion Gap 6 mmol/L BUN 19 H (7-17) mg/dL Creatinine 0.38 L (0.52-1.04) mg/dL Est GFR (CKD-EPI)AfAm >90 (>60 ml/min/1.73 sqM) Est GFR (CKD-EPI)NonAf >90 (>60 ml/min/1.73 sqM) Glucose 109 H (74-99) mg/dL Calcium 9.7 (8.4-10.2) mg/dL Magnesium 1.8 (1.6-2.3) mg/dL Total Bilirubin 0.5 (0.2-1.3) mg/dL AST 23 (14-36) U/L ALT 46 (9-52) U/L Alkaline Phosphatase 106 (38-126) U/L Total Creatine Kinase <20 L (30-135) U/L CK-MB (CK-2) 1.2 (0.0-2.4) ng/mL CK-MB (CK-2) Rel Index Troponin I <0.012 (0.000-0.034) ng/mL NT-Pro-B Natriuret Pep pg/mL Total Protein 6.8 (6.3-8.2) g/dL Albumin 3.8 (3.5-5.0) g/dL Influenza Type A RNA (Not Detectd) Influenza Type B (PCR) (Not Detectd) 12/12/18 12/12/18 12/12/18 Range/Units 07:55 07:55 08:43 WBC (3.8-10.6) k/uL RBC (3.80-5.40) m/uL Hgb (11.4-16.0) gm/dL Hct (34.0-46.0) % MCV (80.0-100.0) fL MCH (25.0-35.0) pg MCHC (31.0-37.0) g/dL RDW (11.5-15.5) % Plt Count (150-450) k/uL Neutrophils % % Lymphocytes % % Monocytes % % Eosinophils % % Basophils % % Neutrophils # (1.3-7.7) k/uL Lymphocytes # (1.0-4.8) k/uL Monocytes # (0-1.0) k/uL Eosinophils # (0-0.7) k/uL Basophils # (0-0.2) k/uL Hypochromasia PT 10.0 (9.0-12.0) sec INR 0.9 (<1.2) APTT 23.4 (22.0-30.0) sec Sodium (137-145) mmol/L Potassium (3.5-5.1) mmol/L Chloride (98-107) mmol/L Carbon Dioxide (22-30) mmol/L Anion Gap mmol/L BUN (7-17) mg/dL Creatinine (0.52-1.04) mg/dL Est GFR (CKD-EPI)AfAm (>60 ml/min/1.73 sqM) Est GFR (CKD-EPI)NonAf (>60 ml/min/1.73 sqM) Glucose (74-99) mg/dL Calcium (8.4-10.2) mg/dL Magnesium (1.6-2.3) mg/dL Total Bilirubin (0.2-1.3) mg/dL AST (14-36) U/L ALT (9-52) U/L Alkaline Phosphatase (38-126) U/L Total Creatine Kinase (30-135) U/L CK-MB (CK-2) (0.0-2.4) ng/mL CK-MB (CK-2) Rel Index Troponin I (0.000-0.034) ng/mL NT-Pro-B Natriuret Pep 51 pg/mL Total Protein (6.3-8.2) g/dL Albumin (3.5-5.0) g/dL Influenza Type A RNA Not Detected (Not Detectd) Influenza Type B (PCR) Not Detected (Not Detectd) Disposition <Red Carrillo - Last Filed: 12/12/18 09:48> <Alberto Price - Last Filed: 12/12/18 09:55> Clinical Impression: Pneumonia, COPD (chronic obstructive pulmonary disease), Acute respiratory failure with hypoxia Disposition: ADMITTED IP TO THIS HOSP Condition: Fair Referrals: Abe Henderson DO [Primary Care Provider] - 1-2 days
--- NOTE | 2018-12-12 08:52 | XR ---
EXAMINATION TYPE: XR chest 1V portable DATE OF EXAM: 12/12/2018 HISTORY: Shortness of breath. COMPARISON: 05/03/2019 TECHNIQUE: Single view of the chest is submitted. FINDINGS: Demonstrated are scattered senescent parenchymal change. Hyperinflation compatible with COPD. Trache ostomy tube in place. I cannot exclude developing left perihilar infiltrate. Correlate clinically. Progress studies are adv ised. The heart is stable. Hilar and mediastinal structures are within normal limits. Degenerative changes are seen of the dorsal spine. IMPRESSION: 1. I cannot exclude developing left perihilar infiltrate. Correlate clinically. Progress studies are advised.
[2018-12-12 09:00] LABS: Creatine Kinase <20 U/L (30-135)
[2018-12-12 09:03] LABS: Anion Gap 6 mmol/L; Carbon Dioxide 39 mmol/L (22-30)
[2018-12-12 09:13] LABS: Creatine Kinase MB 1.2 ng/mL (0.0-2.4); Troponin I <0.012 ng/mL (0.000-0.034)
[2018-12-12] MEDS ORDERED: AZITHROMYCIN 500 MG in SODIUM CHLORIDE 0.9% 250 ML IVPB STA (09:28)
[2018-12-12] MEDS ORDERED: PNEUMONIA PROTOCOL UTILIZED 1 EACH MISC PO PRN (09:35)
[2018-12-12] MEDS ORDERED: IPRATROPIUM-ALBUTEROL 3 ML NEB INHALATION PRN (10:29)
[2018-12-12 10:46] LABS: Glucose,Whole Blood 110 mg/dL (75-99)
[2018-12-12] MEDS: SODIUM CHLORIDE 0.9% 1,000 ML IV SCH (11:00)
[2018-12-12] MEDS: IPRATROPIUM-ALBUTEROL 3 ML NEB INHALATION SCH ×4 (12:09→23:07)
[2018-12-12] MEDS: HEPARIN SODIUM,PORCINE 5,000 UNIT/ML 1 ML VIAL SQ SCH ×2 (12:14→20:30)
[2018-12-12] MEDS: PANTOPRAZOLE 40 MG/10 ML VIAL IV SCH (12:14)
[2018-12-12 12:37] LABS: Appearance,Urine Clear (Clear); Bilirubin,Urine Negative (Negative); Blood,Urine Negative (Negative); Color,Urine Yellow; Glucose,Urine (UA) Negative (Negative); Ketones,Urine Negative (Negative); Leukocyte Esterase,Urine Negative (Negative); Nitrite,Urine Negative (Negative); PH, Urine 6.5 (5.0-8.0); Protein,Urine Negative (Negative); Specific Gravity,Urine 1.012 (1.001-1.035); Urobilinogen,Urine <2.0 mg/dL (<2.0)
--- NOTE | 2018-12-12 14:06 | CONS ---
CONSULTATION This is a pulmonary critical care consultation. DATE OF CONSULTATION: December 12, 2018 This is a 58-year-old female with very severe COPD. She has stage IV disease. The patient's FEV1 is below 30%. Anyway, she has a long history of recent respiratory failure. She was in the hospital for quite some time last year. She came in with COPD exacerbation. She ended up on the mechanical ventilator and could not be weaned. Therefore, the patient received a tracheostomy tube and a PEG tube. The patient was eventually transferred to [facility] where she was weaned from full term mechanical ventilation to nocturnal ventilation using a trilogy ventilator and daytime trach collar. Anyway, the patient recently saw me in the office. This is the first time I have seen her for some time. More recently, over the last day or so, she complains of increasing shortness of breath, chest tightness, wheezing, cough and thick yellow-green phlegm production. No fever or chills. She was brought to the emergency room and evaluated there. She was seen by the ER doctor and by the respiratory therapist who thought she was fatiguing and they went ahead and placed her on the mechanical breathing machine. She is now here up in the ICU. She is with her mother and sister. Her chest x-ray was evaluated. It just shows COPD. I do not see any chuck infiltrates. I did speak to the ER physician, Dr. Evan Price. MEDICATIONS: Her home medications include primarily DuoNeb, Paxil, Klonopin, and prednisone. The patient also has been on the Symbicort in the past. ALLERGIES: Allergies are primary LEVAQUIN. MEDICAL HISTORY: Medical history includes severe end-stage COPD, pneumonia, respiratory failure requiring long-term intubation, mechanical ventilation and also breast cancer. She also has a history of right-sided spontaneous pneumothorax in 2006 with subsequent surgery. She has also had pneumothorax in 2017 with chest tube. She is status post bilateral mastectomy for breast cancer. Additional surgery includes uterine ablation, repair of spontaneous pneumothorax with wedge resection and mechanical pleurodesis, right pneumothorax with chest tube placement and colonoscopy. SOCIAL HISTORY: Social history is positive for previous heavy tobacco use. She does not smoke currently. She denies any alcohol or illicit drug use. FAMILY HISTORY: Family history is positive for hypertension, diabetes, COPD, lung cancer, breast cancer, rheumatoid arthritis, and thyroid disease. Also has a family member with lupus. REVIEW OF SYSTEMS: Review of systems was difficult to obtain because she is on mechanical ventilator. But what I could gather, she had 1 day worth of increasing shortness of breath, chest tightness, wheezing, cough, chest congestion and thick yellow-green phlegm production. The rest of the review of systems is apparently negative. PHYSICAL EXAMINATION: Current vital signs are reviewed. Temperature is 98.5, heart rate 84, respiratory rate 21, saturations 99% that is on 40% FiO2. She appears in no acute distress. Looks well. HEENT examination is grossly unremarkable. Mucous membranes are moist. NECK: Supple. There is a midline tracheostomy. No adenopathy or thyromegaly. Neck veins are flat. Cardiovascular examination reveals regular rhythm and rate. Heart rate 84. S1 , S2 normal. No murmur. Lungs reveal coarse inspiratory and expiratory rhonchi. No wheezes or crackles. There is prolongation noted. Abdomen is soft. Bowel sounds are heard. Extremities are intact. No cyanosis, clubbing, or edema. Skin without rash. Neurologic examination is brief but nonfocal. LABS: Labs are reviewed. White count 10.2, hemoglobin 12.6, hematocrit 42.2, platelet count 234,000. PT 10, INR 0.9, PTT is 23.4. Sodium 143, potassium 4.3, chloride 98, CO2 of 39, anion gap is 6. BUN and creatinine were 19 and 0.38. Estimated PaCO2 based on the bicarbonate concentration of 39 is about 68+/- 2 mmHg. Troponins were negative. N terminal proBNP was normal. UA negative. Influenza studies were negative. A chest x-ray was done. It was evaluated. The chest x-ray read as showing a possible developing left parahilar infiltrate. I was not impressed by the chest x-ray myself other than for COPD. Medications are reviewed. We have adjusted the medications to include DuoNeb q.4 hours and p.r.n., Solu-Medrol 40 mg q.6, Pulmicort and Perforomist twice a day and antibiotics in the form of Zosyn and azithromycin. Also the IV was 0.9 at 75 mL an hour. ASSESSMENT: 1. Acute on chronic hypoxemic respiratory failure secondary to chronic obstructive pulmonary disease exacerbation in a patient who has a history of chronic respiratory failure requiring nocturnal ventilation. 2. Status post PEG tube placement and tracheostomy. 3. Underlying severe end-stage/stage IV chronic obstructive pulmonary disease. 4. Chronic hypoxemic respiratory failure. 5. History of depression. 6. History of breast cancer, status post bilateral mastectomy. 7. Status post breast implants. 8. History of previous pneumothoraces with chest tube evacuation as well as wedge resection and mechanical pleurodesis. 9. Status post uterine ablation. PLAN: Please see my orders. The patient will be maintained on the ventilator. We made some adjustments. The tidal volume was taken down to 325. The rate was increased up to 16. The FiO2 was dropped to 40%. The PEEP was maintained at 5. The patient's antibiotics will include azithromycin and Zosyn. She is on updrafts, Pulmicort, Perforomist , and steroids. Additional recommendations and suggestions are forthcoming. Prognosis is guarded. We will continue to follow closely. BECKIE / SOTO: [id number] / MTDD
--- NOTE | 2018-12-12 14:33 | P.HPIM ---
History of Present Illness H&P Date: 12/12/18 Chief Complaint: Shortness of breath with bloody discharge This is a very pleasant 58-year-old female with a history of trach which was done in April 2018 for COPD. She said that she was okay until a few days when she became more short of breath and was having cough with yellowish green phlegm. Also she is having blood-tinged phlegm. She does not complain of any fever or chills. She does not complain of any chest pain or racing heart, no abdominal pain, nausea and vomiting, or diarrhea constipation, no tingling numbness of any of the extremities, no itch or rash ER course-vitals were stable pulse rate 85 respiration 20 blood pressure 110/84 and satting 95% and 40% FiO2. Lab work was done which showed a recent 10.2 hemoglobin 12.6 platelets 234 sodium 143 potassium 4.3 B1 19 creatinine 0.3. GFR more than 90. AST 23 8046 alk phos 106 [place] is less than 20 troponin less than 0.012. UA is negative and further in B is negative. Patient started antibiotics and admitted to the hospitalist service for further evaluation and management. Pulmonology also consulted Review of Systems All systems: negative Past Medical History Past Medical History: Cancer, COPD, Pneumonia, Respiratory Disorder Additional Past Medical History / Comment(s): Pt recently admitted to [facility] on for acute exacerbation COPD/purulent tracheobronchitis. Other hx: Chronic respiratory failure with trach collar during the day and vent support at night, R sided spontaneous pneumos in 2005 with surgery and again in 2016 with chest tube, breast cancer with bilateral mastectomies/reconstruction. History of Any Multi-Drug Resistant Organisms: None Reported Past Surgical History: Ablation, Breast Surgery Additional Past Surgical History / Comment(s): Bilateral mastectomies with bilateral breast reconstruction in 2004, uterine ablation in 2009, spontaneous pneumothorax in 2006 with wedge resection and mechanical pleurodesis, right pneumothorax june 2017 with chest tube placement, colonoscopy. Past Anesthesia/Blood Transfusion Reactions: No Reported Reaction Past Psychological History: No Psychological Hx Reported Additional Psychological History / Comment(s): Pt resides with her mother and her son. She is on O2 at 2L/NC ATC now. She has a nebulizer. She uses no assistive device. She can drive. She states she has had increased depression lately r/t her health. She states the past couple of days she has thought it would be better if she just "killed myself". She states she has not thought of how she might do this. She then states she would never really kill herself because of her hindu beliefs. Smoking Status: Former smoker Past Alcohol Use History: None Reported Additional Past Alcohol Use History / Comment(s): Pt started smoking as a teen and quit in 2005. Past Drug Use History: None Reported - Past Family History Mother Family Medical History: Diabetes Mellitus, Hypertension Additional Family Medical History / Comment(s): mother is 84 Father Family Medical History: COPD Additional Family Medical History / Comment(s): lung cancer Sister(s) Additional Family Medical History / Comment(s): She has 4 sisters, 1 sister with history of breast cancer, and thyroid disorder, 1 sister with history of rheumatoid arthritis, and another sister with history of lupus. Brother(s) Additional Family Medical History / Comment(s): She has 3 brothers, 1 brother has diabetes mellitus type 2. Medications and Allergies Home Medications Medication Instructions Recorded Confirmed Type Budesonide-Formot 160-4.5 Mcg 2 puff INHALATION RT-BID #120 puff 07/07/17 Rx [Symbicort 160-4.5 Mcg Inhaler] Ipratropium-Albuterol Nebulize 3 ml INHALATION RT-QID 12/12/18 12/12/18 History [Duoneb 0.5 mg-3 mg/3 ml Soln] PARoxetine HCL [Paxil] 40 mg PO DAILY 12/12/18 12/12/18 History clonazePAM [KlonoPIN] 1 mg PO QID 12/12/18 12/12/18 History predniSONE 10 mg PO DAILY 12/12/18 12/12/18 History Allergies Allergy/AdvReac Type Severity Reaction Status Date / Time levofloxacin [From Levaquin] AdvReac Chest Pain Verified 12/12/18 09:47 Physical Exam Vitals: Vital Signs Temp Pulse Resp BP Pulse Ox 12/12/18 13:30 85 20 110/84 95 12/12/18 13:00 84 19 110/84 95 12/12/18 12:30 84 21 99 12/12/18 12:22 92 12/12/18 12:15 85 12 100 12/12/18 12:10 92 12/12/18 12:00 86 15 110/84 98 12/12/18 11:45 98.5 F 87 17 110/84 99 12/12/18 11:30 85 10 L 110/84 99 12/12/18 11:20 17 99 12/12/18 11:15 86 10 L 110/84 98 12/12/18 11:00 92 10 L 110/84 98 12/12/18 10:50 98.5 F 92 14 110/84 99 12/12/18 10:18 85 18 126/84 97 12/12/18 09:57 95 18 128/82 95 12/12/18 09:35 99 12/12/18 09:10 93 20 138/83 96 12/12/18 09:06 24 12/12/18 08:50 87 22 118/77 89 L 12/12/18 07:59 99.5 F 96 18 148/82 86 L Intake and Output 12/11/18 12/12/18 12/12/18 22:59 06:59 14:59 Intake Total 75 Output Total 360 Balance -285 Intake: IV 75 Sodium Chloride 0.9% 1, 75 000 ml @ 75 mls/hr IV . [id number] [facility] Rx#:[id number] Output: Urine 360 Other: Weight 48.988 kg On exam, alert and oriented x3. HEENT: Conjunctivae normal. eyes normal. NECK: No JVD. No thyroid enlargement. No LNs patient has trach CARDIOVASCULAR: S1, S2 muffled. No murmur RESPIRATION: Breath sounds diminished in the bases. No rhonchi or crackles. No bronchial breathing. ABDOMEN: Soft, nontender . No guarding. no masses palpable. No ascites, No hepatosplenomegaly.Bowel sounds heard. LEGS: No edema. no swelling NERVOUS SYSTEM: Cranial N 2-12 grossly normal. Moves all 4 limbs. No focal deficits. No sensory deficit. No signs of cerebellar dysfucntion. Skin: no ulcer no rash Joints: No active swelling. No inflammation. Lymphatic system. No LN neck axilla or groin. Results CBC & Chem 7: 12/12/18 07:55 12/12/18 07:55 Labs: Abnormal Lab Results - Last 24 Hours (Table) 12/12/18 12/12/18 12/12/18 Range/Units 07:55 07:55 07:55 MCHC 29.9 L (31.0-37.0) g/dL Carbon Dioxide 39 H (22-30) mmol/L BUN 19 H (7-17) mg/dL Creatinine 0.38 L (0.52-1.04) mg/dL Glucose 109 H (74-99) mg/dL POC Glucose (mg/dL) (75-99) mg/dL Total Creatine Kinase <20 L (30-135) U/L 12/12/18 Range/Units 10:45 MCHC (31.0-37.0) g/dL Carbon Dioxide (22-30) mmol/L BUN (7-17) mg/dL Creatinine (0.52-1.04) mg/dL Glucose (74-99) mg/dL POC Glucose (mg/dL) 110 H (75-99) mg/dL Total Creatine Kinase (30-135) U/L Thrombosis Risk Factor Assmnt - Choose All That Apply Each Factor Represents 1 point: Abnormal pulmonary function (COPD), Age 41-60 years, Medical pt on bed rest, Serious lung disease incl. pneumonia (< 1month) Other Risk Factors: Yes Each Risk Factor Represents 2 Points: Patient confined to bed Other congenital or acquired thrombophilia - If yes, enter type in comment: No Thrombosis Risk Factor Assessment Total Risk Factor Score: 6 Thrombosis Risk Factor Assessment Level: High Risk Assessment and Plan Assessment: - Respiratory failure secondary to COPD exacerbation and pneumonia - Status post PEG tube - History of depression - History of breast cancer Plan - We'll admit the patient to ICU - We'll continue antibiotics as per pulmonology recommendations - Continue breathing treatments - We'll resume the patient's home medications - Patient pulmonology recommendations - DVT and GI prophylaxis - We'll order for lab work in the morning - Expected length of stay more than 2 midnights - Patient is full code Time with Patient: Greater than 30
[2018-12-12] MEDS: PIPERACILLIN-TAZOBACTAM 3.375 GM in SODIUM CHLORIDE 0.9% 100 ML IVPB SCH ×2 (16:12→23:19)
[2018-12-12] MEDS: methylPREDNISolone SOD SUCCI 40 MG/ML 1 ML VIAL IV SCH ×2 (17:28→23:19)
[2018-12-12] MEDS ORDERED: clonazePAM 1 MG TAB PO SCH (17:30)
[2018-12-12] MEDS ORDERED: Magnesium Replacement Protocol 1 EACH MISC MISCELLANE PRN (18:15)
[2018-12-12] MEDS: FORMOTEROL FUMARATE 20 MCG/2 ML NEBU INHALATION SCH (19:02)
[2018-12-12] MEDS: BUDESONIDE 1 MG/2 ML NEBU INHALATION SCH (19:02)
[2018-12-12] MEDS: MAGNESIUM SULFATE-D5W PMX 1 GM in DEXTROSE/WATER 1 100ML.BAG IVPB SCH ×2 (20:29→21:32)
[2018-12-12] MEDS: CHLORHEXIDINE GLUCONATE 15 ML CUP MUCOUS MEM SCH (20:30)
[2018-12-13] MEDS: SODIUM CHLORIDE 0.9% 1,000 ML IV SCH ×2 (03:01→15:29)
[2018-12-13] MEDS: IPRATROPIUM-ALBUTEROL 3 ML NEB INHALATION SCH ×6 (03:03→23:07)
[2018-12-13 04:19] LABS: ABG Base Excess 13.9 mmol/L; ABG Oxygen Saturation 92.7 % (94-97); ABG PH 7.26 (7.35-7.45); ABG PO2 70 mmHg (83-108); ABG TCO2 44 mmol/L (19-24)
[2018-12-13 04:34] LABS: Basophils % (A) 0 %; Eosinophils # (A) 0.1 k/uL (0-0.7); Eosinophils % (A) 1 %; HCT 38.6 % (34.0-46.0); HGB 11.4 gm/dL (11.4-16.0); Hypochromasia Marked; Lymphocytes # (A) 0.4 k/uL (1.0-4.8); Lymphocytes % (A) 3 %; MCH 27.4 pg (25.0-35.0); MCHC 29.6 g/dL (31.0-37.0); MCV 92.5 fL (80.0-100.0); Mean Platelet Volume 7.8; Monocytes # (A) 0.2 k/uL (0-1.0); Monocytes % (A) 1 %; Neutrophils # (A) 12.2 k/uL (1.3-7.7); Neutrophils % (A) 95 %; Platelet Count 207 k/uL (150-450); RBC 4.17 m/uL (3.80-5.40); RDW 13.7 % (11.5-15.5); WBC 12.8 k/uL (3.8-10.6)
[2018-12-13 04:44] LABS: Blood Urea Nitrogen 18 mg/dL (7-17); Calcium 8.9 mg/dL (8.4-10.2); Chloride 99 mmol/L (98-107); Glucose 147 mg/dL (74-99); Magnesium 2.3 mg/dL (1.6-2.3); Phosphorus 3.8 mg/dL (2.5-4.5); Potassium 4.7 mmol/L (3.5-5.1); Sodium 140 mmol/L (137-145)
[2018-12-13 04:50] LABS: Anion Gap 2 mmol/L; Carbon Dioxide 39 mmol/L (22-30)
[2018-12-13] MEDS: methylPREDNISolone SOD SUCCI 40 MG/ML 1 ML VIAL IV SCH ×4 (05:54→23:37)
[2018-12-13] MEDS: BUDESONIDE 1 MG/2 ML NEBU INHALATION SCH ×2 (07:05→19:02)
[2018-12-13] MEDS: FORMOTEROL FUMARATE 20 MCG/2 ML NEBU INHALATION SCH ×2 (07:05→19:02)
--- NOTE | 2018-12-13 07:11 | XR ---
EXAMINATION TYPE: XR chest 1V portable DATE OF EXAM: 12/13/2018 CLINICAL HISTORY: Difficulty breathing progress study. TECHNIQUE: 2 AP portable upright views of the chest are obtained. COMPARISON: Chest x-ray from one day earlier and older studies. FINDINGS: Tracheostomy tube is redemonstrated. There is chronic emphysematous change with parenchyma l scarring and hilar retraction redemonstrated. No new focal airspace opacity or pneumothorax is seen bilaterally. Blunting of bilateral lateral costophrenic angles is consistent with new small to tiny bilateral pleural effusions. Cardiac silhouette size is stable and within normal limits. Osseous stru ctures are intact. IMPRESSION: Overall stable findings, chronic emphysematous and parenchymal changes with new small t o tiny bilateral pleural effusions but no new suspicious focal infiltrate.
[2018-12-13] MEDS ORDERED: AZITHROMYCIN 500 MG in SODIUM CHLORIDE 0.9% 250 ML IVPB SCH (09:00)
[2018-12-13] MEDS ORDERED: PARoxetine 20 MG TAB PO SCH (09:00)
[2018-12-13] MEDS: PIPERACILLIN-TAZOBACTAM 3.375 GM in SODIUM CHLORIDE 0.9% 100 ML IVPB SCH ×2 (09:49→15:31)
[2018-12-13] MEDS: PANTOPRAZOLE 40 MG/10 ML VIAL IV SCH (09:50)
[2018-12-13] MEDS: HEPARIN SODIUM,PORCINE 5,000 UNIT/ML 1 ML VIAL SQ SCH ×2 (09:50→20:43)
[2018-12-13] MEDS: CHLORHEXIDINE GLUCONATE 15 ML CUP MUCOUS MEM SCH ×3 (09:50→20:43)
--- NOTE | 2018-12-13 10:46 | PN ---
PROGRESS NOTE DATE OF SERVICE: 12/13/2018 A 58-year-old female who I saw in consultation yesterday. She has a history of very severe stage IV COPD. Her FEV1 is below 30%. She has a recent history of an episode of respiratory failure last year. She spent a number of days here in the ICU on the ventilator, could not be weaned, ended up having a tracheostomy and PEG tube placement and was shipped off to [facility] where she was weaned down to daytime trach collar and nighttime ventilation. From there, she went to [facility]. She was there for quite a long time and then more recently she was discharged to home. She had lots of support in her mother and her sister. Anyway, she presented to the emergency room here with increasing shortness of breath, chest congestion, difficulty breathing, coughing and phlegm production. The phlegm was very thick and yellow-green in color. For that reason, she was placed back on the ventilator. She had a pretty uneventful night last night. We are going to attempt to go ahead and put her on trach collar today. I did speak to the ER physician, Dr. Evan Price yesterday. Her current vent settings are the assist-control mode rate of 16, tidal volume 325, FiO2 of 40% PEEP of 5. Gases show PO2 of 70, pCO2 of 91, pH 7.26. She is getting saline IV at 75 mL an hour. I did not feed her yesterday because of the fact that she was so acutely ill. Today will try some trach collar and some oral feeding depending on how she does. Again, her typical pattern is daytime trach collar and nocturnal ventilation at nighttime. Current vital signs are reviewed. They include a temperature of 97.8, heart rate 85, respiratory rate 20, blood pressure 114/72, mean 86, and saturations of mid 90s on 40% FiO2 and 5 of PEEP. Appears in no acute distress. Looks pretty comfortable. HEENT examination is grossly unremarkable. Mucous membranes are moist. Neck is supple. Full range of motion. There is a midline tracheostomy. Cardiovascular examination reveals regular rhythm and rate. Heart rate about 85 beats per minute. S1, S2 normal. Lungs reveal a few scattered coarse rhonchi. Breath sounds are diminished. No wheezes or crackles. Abdomen is soft. Bowel sounds are heard. Extremities are intact. No cyanosis, clubbing, or edema. Skin without rash. Neurologic examination is brief but nonfocal. LABS: Reviewed. White count 12.8, hemoglobin 11.4, hematocrit 38.6, platelet count 207,000. Gases have been noted. Sodium 140, potassium 4.7, chloride 99, CO2 is 39, anion gap is 2, BUN 18, creatinine 0.35. Influenza studies are negative. Urine was negative. Microbiologic data so far is negative. Chest x-ray shows changes only of COPD. Medications are reviewed. They were adjusted yesterday. ASSESSMENT: 1. Acute on chronic hypoxemic respiratory failure secondary to chronic obstructive pulmonary disease exacerbation in a patient who has history of chronic respiratory failure requiring nocturnal ventilation. 2. Chronic hypercapnic respiratory failure. 3. Status post PEG tube placement and tracheostomy. 4. Underlying severe end-stage/stage IV chronic obstructive pulmonary disease. 5. History of depression. 6. History of breast cancer, status post bilateral mastectomy. 7. Status post breast implants. 8. History of previous pneumothoraces with chest tube evacuation as well as wedge resection and mechanical pleurodesis. 9. Status post uterine ablation. PLAN: The patient remains on antibiotics, bronchodilators and steroids. Will move her to trach collar today. Hopefully she will tolerate that well. No additional recommendations are made. Prognosis is guarded. Hopefully will get her back to her baseline, which is daytime trach collar and nighttime mechanical ventilation. Additional recommendations and suggestions are forthcoming. Prognosis is guarded. Critical care time is 33 minutes. MMODL / HARIN: [id number] /
[2018-12-13 12:37] LABS: Glucose,Whole Blood 124 mg/dL (75-99)
--- NOTE | 2018-12-13 15:03 | P.PN ---
Subjective Progress Note Date: 12/13/18 Very pleasant 58-year-old female who is trach and PEG is admitted for shortness of breath and cough with blood phlegm. She is in ICU. Pulmonology following her 12/13/2018 Patient says that she's feeling better than yesterday. She does not complain of any chest pain or racing heart, no cough no shortness of breath, no abdominal pain Objective - Vital Signs Vital signs: Vital Signs Temp 98.4 F 12/13/18 12:00 Pulse 82 12/13/18 14:00 Resp 17 12/13/18 14:00 BP 107/67 12/13/18 14:00 Pulse Ox 94 L 12/13/18 14:00 Intake & Output 12/12/18 12/13/18 12/13/18 18:59 06:59 18:59 Intake Total 625 925 950 Output Total 595 350 359 Balance 30 575 591 Weight 48.988 kg 48.6 kg 48.6 kg Intake: IV 525 925 700 Piperacillin-Tazobactam 3 100 100 .375 gm In Sodium Chloride 0.9% 100 ml @ 25 mls/hr IVPB Q8HR [facility] Rx# :[id number] Sodium Chloride 0.9% 1, 525 825 600 000 ml @ 75 mls/hr IV . [id number] [facility] Rx#:[id number] Intake, IV Titration 100 250 Amount Azithromycin 500 mg In 250 Sodium Chloride 0.9% 250 ml @ 250 mls/hr IVPB DAILY [facility] Rx#:[id number] Piperacillin-Tazobactam 3 100 .375 gm In Sodium Chloride 0.9% 100 ml @ 25 mls/hr IVPB Q8HR [facility] Rx# :[id number] Output: Urine 595 350 359 Other: Voiding Method Indwelling Catheter Indwelling Catheter - Exam On exam, alert and oriented x3. HEENT: Conjunctivae normal. eyes normal. NECK: No JVD. No thyroid enlargement. No LNs has trach CARDIOVASCULAR: S1, S2 muffled. No murmur RESPIRATION: Breath sounds diminished in the bases. No rhonchi or crackles. No bronchial breathing. ABDOMEN: Soft, nontender . No guarding. no masses palpable. No ascites, No hepatosplenomegaly.Bowel sounds heard. Has PEG tube LEGS: No edema. no swelling NERVOUS SYSTEM: Cranial N 2-12 grossly normal. Moves all 4 limbs. No focal deficits. No sensory deficit. No signs of cerebellar dysfucntion. Skin: no ulcer no rash Joints: No active swelling. No inflammation. Lymphatic system. No LN neck axilla or groin. - Labs CBC & Chem 7: 12/13/18 04:14 12/13/18 04:14 Labs: Abnormal Lab Results - Last 24 Hours (Table) 12/13/18 12/13/18 12/13/18 Range/Units 04:14 04:14 04:17 WBC 12.8 H (3.8-10.6) k/uL MCHC 29.6 L (31.0-37.0) g/dL Neutrophils # 12.2 H (1.3-7.7) k/uL Lymphocytes # 0.4 L (1.0-4.8) k/uL ABG pH 7.26 L (7.35-7.45) ABG pCO2 91 H* (35-45) mmHg ABG pO2 70 L (83-108) mmHg ABG HCO3 41 H* (21-25) mmol/L ABG Total CO2 44 H (19-24) mmol/L ABG O2 Saturation 92.7 L (94-97) % Carbon Dioxide 39 H (22-30) mmol/L BUN 18 H (7-17) mg/dL Creatinine 0.35 L (0.52-1.04) mg/dL Glucose 147 H (74-99) mg/dL POC Glucose (mg/dL) (75-99) mg/dL 12/13/18 Range/Units 12:36 WBC (3.8-10.6) k/uL MCHC (31.0-37.0) g/dL Neutrophils # (1.3-7.7) k/uL Lymphocytes # (1.0-4.8) k/uL ABG pH (7.35-7.45) ABG pCO2 (35-45) mmHg ABG pO2 (83-108) mmHg ABG HCO3 (21-25) mmol/L ABG Total CO2 (19-24) mmol/L ABG O2 Saturation (94-97) % Carbon Dioxide (22-30) mmol/L BUN (7-17) mg/dL Creatinine (0.52-1.04) mg/dL Glucose (74-99) mg/dL POC Glucose (mg/dL) 124 H (75-99) mg/dL Microbiology - Last 24 Hours (Table) 12/12/18 08:43 Gram Stain - Preliminary Sputum Sputum Culture - Preliminary Pseudomonas spec 12/12/18 07:55 Blood Culture - Preliminary Blood No Growth after 24 hours 12/12/18 11:36 Urine Culture - Preliminary Urine,Catheterized Assessment and Plan Assessment: - Respiratory failure secondary to COPD exacerbation and pneumonia - Status post PEG tube - History of depression - History of breast cancer Plan - We'll admit the patient to ICU - We'll continue antibiotics as per pulmonology recommendations - Continue breathing treatments - We'll resume the patient's home medications - We'll order for lab work in the morning Time with Patient: Greater than 30
[2018-12-13] MEDS: clonazePAM 1 MG TAB PO SCH ×2 (15:30→20:44)
[2018-12-13 19:17] LABS: Glucose,Whole Blood 111 mg/dL (75-99)
[2018-12-13] MEDS ORDERED: LACTATED RINGERS 1,000 ML IV ONE (19:45)
[2018-12-13] MEDS: MEROPENEM 1 GM in SODIUM CHLORIDE 0.9% 100 ML IVPB SCH (20:54)
[2018-12-14 00:06] LABS: Glucose,Whole Blood 111 mg/dL (75-99)
[2018-12-14] MEDS: IPRATROPIUM-ALBUTEROL 3 ML NEB INHALATION SCH ×6 (02:56→23:14)
[2018-12-14] MEDS: SODIUM CHLORIDE 0.9% 1,000 ML IV SCH ×2 (05:39→21:31)
[2018-12-14] MEDS: methylPREDNISolone SOD SUCCI 40 MG/ML 1 ML VIAL IV SCH ×3 (05:39→17:39)
[2018-12-14 06:22] LABS: Anion Gap 2 mmol/L; Blood Urea Nitrogen 18 mg/dL (7-17); Calcium 9.3 mg/dL (8.4-10.2); Chloride 101 mmol/L (98-107); Glucose 125 mg/dL (74-99); Phosphorus 3.3 mg/dL (2.5-4.5); Sodium 143 mmol/L (137-145)
[2018-12-14 06:28] LABS: Carbon Dioxide 40 mmol/L (22-30)
[2018-12-14 06:31] LABS: Basophils % (A) 0 %; Eosinophils % (A) 0 %; HCT 39.5 % (34.0-46.0); HGB 11.4 gm/dL (11.4-16.0); Hypochromasia Marked; Lymphocytes # (A) 0.5 k/uL (1.0-4.8); Lymphocytes % (A) 4 %; MCH 27.2 pg (25.0-35.0); MCHC 28.8 g/dL (31.0-37.0); MCV 94.4 fL (80.0-100.0); Mean Platelet Volume 8.1; Monocytes # (A) 0.3 k/uL (0-1.0); Monocytes % (A) 3 %; Neutrophils # (A) 10.7 k/uL (1.3-7.7); Neutrophils % (A) 93 %; Platelet Count 202 k/uL (150-450); RBC 4.19 m/uL (3.80-5.40); RDW 13.9 % (11.5-15.5); WBC 11.6 k/uL (3.8-10.6)
[2018-12-14] MEDS ORDERED: FUROSEMIDE 10 MG/ML 2 ML VIAL IV ONE (07:08)
[2018-12-14] MEDS: BUDESONIDE 1 MG/2 ML NEBU INHALATION SCH ×2 (07:09→19:15)
[2018-12-14] MEDS: FORMOTEROL FUMARATE 20 MCG/2 ML NEBU INHALATION SCH ×2 (07:09→19:15)
[2018-12-14] MEDS ORDERED: ACETAMINOPHEN TAB 325 MG TAB PO PRN (07:18)
[2018-12-14] MEDS: MEROPENEM 1 GM in SODIUM CHLORIDE 0.9% 100 ML IVPB SCH ×2 (08:18→21:32)
[2018-12-14] MEDS: PANTOPRAZOLE 40 MG/10 ML VIAL IV SCH (08:18)
[2018-12-14] MEDS: CHLORHEXIDINE GLUCONATE 15 ML CUP MUCOUS MEM SCH ×2 (08:19→21:32)
[2018-12-14] MEDS: HEPARIN SODIUM,PORCINE 5,000 UNIT/ML 1 ML VIAL SQ SCH ×2 (08:19→21:32)
[2018-12-14 08:48] LABS: ABG PCO2 91 mmHg (35-45)
[2018-12-14 08:49] LABS: ABG HCO3 41 mmol/L (21-25)
--- NOTE | 2018-12-14 09:11 | PN ---
PROGRESS NOTE DATE OF SERVICE: 12/14/2018 A 58-year-old female well known to me. She was seen in consultation 2 days ago. She has a history of stage IV COPD. Her FEV1 is below 30%. Mid last year, she had an episode of acute respiratory failure requiring intubation and mechanical ventilation. She spent a number of days here in the ICU, could not be weaned and eventually received a tracheostomy and PEG tube. The patient was sent to [facility] and subsequent to that, went to a senior care in [facility]. The patient was eventually weaned to the point where she was on nocturnal ventilation and daytime trach collar. Yesterday, we tried trach collar on her. She only lasted about 2 hours and became very fatigued. She did develop some Pseudomonas in her sputum. She was started on Merrem. She remains on the ventilator. She is on the volume assist-control mode rate of 16, tidal volume 325, FiO2 of 40%, PEEP of 5. I did not do a blood gas or chest x-ray today. The patient is also receiving saline at 75 mL an hour. I am going to give her Lasix 20 mg IV push today as she is ahead about 2.2 L in the last day-and-a- half. Other than that, the patient is doing reasonably well. Current vital signs are reviewed. Temperature is 98 degrees, heart rate is 82, respiratory rate 17, blood pressure 114/67, mean 82, saturations are mid 90s on the 40% and 5 of PEEP. Appears in no acute distress. HEENT examination is grossly unremarkable. Mucous membranes are moist. Neck is supple. There is midline tracheostomy. No adenopathy or thyromegaly. Neck veins are flat. Cardiovascular examination reveals regular rhythm and rate. Heart rate 82. It is regular. S1, S2 normal. No murmur. Lungs reveal a few scattered rhonchi. No wheezes or crackles. Breath sounds are diminished. Abdomen is soft. Bowel sounds are heard. Extremities are intact. There is mild edema. Skin without rash. Neurologic examination is brief but nonfocal. Microbiologic study shows sputum that is positive for Pseudomonas species. Has not been further identified. No MICs. LABS: Reviewed. White count 11.6, hemoglobin 11.4, hematocrit 39.5, platelet count 202,000. Sodium 143, potassium 5, chloride 101, CO2 of 40, BUN and creatinine were 18 and 0.34. MEDICATIONS ARE: Reviewed. The patient is on all the usual medications. She is getting Solu-Medrol, Merrem, DuoNeb, Pulmicort, Perforomist, and a dose of Lasix today. ASSESSMENT: 1. Acute on chronic hypoxemic respiratory failure secondary to severe chronic obstructive pulmonary disease in a patient with a previous history of chronic respiratory failure requiring nocturnal ventilation. 2. Chronic hypercapnic respiratory failure. 3. Status post PEG tube placement and tracheostomy. 4. Underlying severe end-stage/stage 4 chronic obstructive pulmonary disease. 5. History of depression. 6. Previous history of tobacco use. 7. History of breast cancer, status post bilateral mastectomy. 8. Status post breast implants. 9. Previous history of pneumothoraces with chest tube evacuation as well as wedge resection and mechanical pleurodesis. 10.Status post uterine ablation. PLAN: The patient spent about 2 hours off the ventilator yesterday. She apparently became very fatigued. We will try again today. The patient is going to get some Lasix 20 mg IV push. She is about 2.2 L ahead over the last sel-ege-o-half. She is on meropenem for the Pseudomonas species in the sputum. Will await further identification and MICs. She also is on DuoNeb, Pulmicort, Perforomist, and Solu-Medrol. Her prognosis is very guarded. We will continue to follow. No additional recommendations are made. Critical care time is 33 minutes. MMODL / IJN: [id number] /
[2018-12-14] MEDS: ACETAMINOPHEN IV (For NPO) 1,000 MG in EMPTY BAG 1 BAG IVPB PRN ×2 (11:17→22:15)
[2018-12-14 11:28] LABS: Glucose,Whole Blood 114 mg/dL (75-99)
[2018-12-14] MEDS: clonazePAM 1 MG TAB PO SCH ×4 (11:59→21:29)
--- NOTE | 2018-12-14 13:47 | P.PN ---
Subjective Progress Note Date: 12/14/18 Very pleasant 58-year-old female who is trach and PEG is admitted for shortness of breath and cough with blood phlegm. She is in ICU. Pulmonology following her 12/13/2018 Patient says that she's feeling better than yesterday. She does not complain of any chest pain or racing heart, no cough no shortness of breath, no abdominal pain 2/3 Patient was eating well when she desatted to 80's. She was put on BiPAP again and his sats went up to more than 90 She otherwise does not complain of any chest pain or racing heart. She said that she's not feeling any shortness of breath Objective - Vital Signs Vital signs: Vital Signs Temp 98.1 F 12/14/18 12:00 Pulse 96 12/14/18 13:00 Resp 19 12/14/18 13:00 BP 121/72 12/14/18 13:00 Pulse Ox 87 L 12/14/18 13:00 Intake & Output 12/13/18 12/14/18 12/14/18 18:59 06:59 18:59 Intake Total 1350 1075 550 Output Total 015 055 8181 Balance 891 805 -970 Weight 48.6 kg 48.5 kg Intake: IV 1100 1075 450 Meropenem 1 gm In Sodium 100 Chloride 0.9% 100 ml @ 200 mls/hr IVPB Q12HR [facility] Rx#:[id number] Piperacillin-Tazobactam 3 200 .375 gm In Sodium Chloride 0.9% 100 ml @ 25 mls/hr IVPB Q8HR [facility] Rx# :[id number] Sodium Chloride 0.9% 1, 900 975 450 000 ml @ 75 mls/hr IV . [id number] [facility] Rx#:[id number] Intake, IV Titration 250 100 Amount Azithromycin 500 mg In 250 Sodium Chloride 0.9% 250 ml @ 250 mls/hr IVPB DAILY [facility] Rx#:[id number] Meropenem 1 gm In Sodium 100 Chloride 0.9% 100 ml @ 200 mls/hr IVPB Q12HR [facility] Rx#:[id number] Output: Urine 396 749 3546 Other: Voiding Method Indwelling Catheter Indwelling Catheter Indwelling Catheter - Exam On exam, alert and oriented x3. HEENT: Conjunctivae normal. eyes normal. NECK: No JVD. No thyroid enlargement. No LNs has trach CARDIOVASCULAR: S1, S2 muffled. No murmur RESPIRATION: Breath sounds diminished in the bases. Breath sounds were coarse and was having wheezing today ABDOMEN: Soft, nontender . No guarding. no masses palpable. No ascites, No hepatosplenomegaly.Bowel sounds heard. Has PEG tube LEGS: No edema. no swelling NERVOUS SYSTEM: Cranial N 2-12 grossly normal. Moves all 4 limbs. No focal deficits. No sensory deficit. No signs of cerebellar dysfucntion. Skin: no ulcer no rash Joints: No active swelling. No inflammation. Lymphatic system. No LN neck axilla or groin. - Labs CBC & Chem 7: 12/14/18 04:32 12/14/18 04:32 Labs: Abnormal Lab Results - Last 24 Hours (Table) 12/13/18 12/13/18 12/14/18 Range/Units 04:17 19:16 00:04 WBC (3.8-10.6) k/uL MCHC (31.0-37.0) g/dL Neutrophils # (1.3-7.7) k/uL Lymphocytes # (1.0-4.8) k/uL ABG pCO2 91 H* (35-45) mmHg ABG HCO3 41 H* (21-25) mmol/L Carbon Dioxide (22-30) mmol/L BUN (7-17) mg/dL Creatinine (0.52-1.04) mg/dL Glucose (74-99) mg/dL POC Glucose (mg/dL) 111 H 111 H (75-99) mg/dL 12/14/18 12/14/18 12/14/18 Range/Units 04:32 04:32 11:25 WBC 11.6 H (3.8-10.6) k/uL MCHC 28.8 L (31.0-37.0) g/dL Neutrophils # 10.7 H (1.3-7.7) k/uL Lymphocytes # 0.5 L (1.0-4.8) k/uL ABG pCO2 (35-45) mmHg ABG HCO3 (21-25) mmol/L Carbon Dioxide 40 H (22-30) mmol/L BUN 18 H (7-17) mg/dL Creatinine 0.34 L (0.52-1.04) mg/dL Glucose 125 H (74-99) mg/dL POC Glucose (mg/dL) 114 H (75-99) mg/dL Microbiology - Last 24 Hours (Table) 12/12/18 11:36 Urine Culture - Final Urine,Catheterized Staphylococcus epidermidis 12/12/18 08:43 Gram Stain - Final Sputum Sputum Culture - Final Pseudomonas aeruginosa 12/12/18 07:55 Blood Culture - Preliminary Blood No Growth after 48 hours Assessment and Plan Assessment: - Respiratory failure secondary to COPD exacerbation and pneumonia - Status post PEG tube - History of depression - History of breast cancer Plan - Continue to monitor in the ICU - Sputum culture shows Pseudomonas. Antibiotics changed to meropenem - Pulmonology following the patient appreciate the recommendations - Continue rest of the medications - DVT and GI prophylaxis - We'll follow up on the patient Time with Patient: Greater than 30
[2018-12-14] MEDS ORDERED: VANCOMYCIN IV PER PHARMACY 1 EACH MISC MISCELLANE PRN (14:12)
[2018-12-14 17:19] LABS: Glucose,Whole Blood 105 mg/dL (75-99)
[2018-12-14] MEDS: VANCOMYCIN 1,000 MG in SODIUM CHLORIDE 0.9% 250 ML IVPB SCH (17:39)
[2018-12-15] MEDS: VANCOMYCIN 1,000 MG in SODIUM CHLORIDE 0.9% 250 ML IVPB SCH ×2 (00:28→08:45)
[2018-12-15] MEDS: methylPREDNISolone SOD SUCCI 40 MG/ML 1 ML VIAL IV SCH ×4 (00:28→17:51)
[2018-12-15] MEDS: IPRATROPIUM-ALBUTEROL 3 ML NEB INHALATION SCH ×6 (03:01→23:32)
[2018-12-15 05:20] LABS: Basophils % (A) 0 %; Eosinophils # (A) 0.1 k/uL (0-0.7); Eosinophils % (A) 0 %; HGB 11.2 gm/dL (11.4-16.0); Hypochromasia Marked; Lymphocytes # (A) 0.5 k/uL (1.0-4.8); Lymphocytes % (A) 3 %; MCH 27.2 pg (25.0-35.0); MCHC 28.7 g/dL (31.0-37.0); MCV 94.8 fL (80.0-100.0); Mean Platelet Volume 7.9; Monocytes # (A) 0.9 k/uL (0-1.0); Monocytes % (A) 6 %; Neutrophils # (A) 14.2 k/uL (1.3-7.7); Neutrophils % (A) 90 %; Platelet Count 229 k/uL (150-450); RBC 4.11 m/uL (3.80-5.40); RDW 13.9 % (11.5-15.5); WBC 15.7 k/uL (3.8-10.6)
[2018-12-15 05:38] LABS: Blood Urea Nitrogen 20 mg/dL (7-17); Calcium 9.2 mg/dL (8.4-10.2); Chloride 98 mmol/L (98-107); Glucose 127 mg/dL (74-99); Phosphorus 2.2 mg/dL (2.5-4.5); Potassium 4.4 mmol/L (3.5-5.1); Sodium 143 mmol/L (137-145)
[2018-12-15 05:45] LABS: Anion Gap -3 mmol/L
[2018-12-15 05:48] LABS: Carbon Dioxide 48 mmol/L (22-30)
--- NOTE | 2018-12-15 07:03 | XR ---
EXAMINATION TYPE: XR chest 1V portable DATE OF EXAM: 12/15/2018 CLINICAL HISTORY: COPD and Difficulty breathing progress study. TECHNIQUE: Single AP portable semiupright view of the chest is obtained. COMPARISON: Chest x-ray from 2 days earlier and older studies. FINDINGS: A tracheostomy tube is redemonstrated. There is chronic emphysematous change without suspi cious new focal airspace opacity or pneumothorax seen bilaterally. Suspect small to tiny bilateral pl eural effusions or pleural thickening, latter is favored. Cardiac silhouette size is stable and withi n normal limits. Osseous structures are intact. IMPRESSION: Overall stable findings, chronic emphysematous and parenchymal changes without suspicio us focal infiltrate.
[2018-12-15] MEDS: BUDESONIDE 1 MG/2 ML NEBU INHALATION SCH ×2 (07:27→19:28)
[2018-12-15] MEDS: FORMOTEROL FUMARATE 20 MCG/2 ML NEBU INHALATION SCH ×2 (07:27→19:28)
[2018-12-15] MEDS ORDERED: Phosphorus Replacement Protoco 1 EACH MISC MISCELLANE PRN (07:37)
[2018-12-15] MEDS ORDERED: POTASSIUM PHOSPHATE 10 MMOL in SODIUM CHLORIDE 0.9% 250 ML IV ONE ×2 (07:37→07:44)
[2018-12-15] MEDS ORDERED: SODIUM PHOSPHATE 10 MMOL in SODIUM CHLORIDE 0.9% 250 ML IVPB ONE (07:42)
[2018-12-15] MEDS ORDERED: SODIUM GLYCEROPHOSPHATE 10 MMOL in SODIUM CHLORIDE 0.9% 250 ML IV ONE (08:00)
[2018-12-15] MEDS: CHLORHEXIDINE GLUCONATE 15 ML CUP MUCOUS MEM SCH ×2 (08:46→21:51)
[2018-12-15] MEDS: HEPARIN SODIUM,PORCINE 5,000 UNIT/ML 1 ML VIAL SQ SCH ×2 (08:46→21:50)
[2018-12-15] MEDS: PANTOPRAZOLE 40 MG/10 ML VIAL IV SCH (08:50)
[2018-12-15] MEDS: SODIUM CHLORIDE 0.9% 1,000 ML IV SCH ×2 (09:34→21:50)
[2018-12-15] MEDS: MEROPENEM 1 GM in SODIUM CHLORIDE 0.9% 100 ML IVPB SCH ×2 (09:35→21:50)
[2018-12-15 10:11] LABS: ABG Base Excess 20.5 mmol/L; ABG Oxygen Saturation 90.4 % (94-97); ABG PH 7.24 (7.35-7.45); ABG PO2 60 mmHg (83-108); ABG TCO2 51 mmol/L (19-24)
[2018-12-15] MEDS ORDERED: FUROSEMIDE 10 MG/ML 2 ML VIAL IV ONE (10:23)
[2018-12-15 11:18] LABS: Glucose,Whole Blood 127 mg/dL (75-99)
[2018-12-15 12:40] LABS: ABG Base Excess 26.3 mmol/L; ABG Oxygen Saturation 89.3 % (94-97); ABG PH 7.29 (7.35-7.45); ABG TCO2 56 mmol/L (19-24)
--- NOTE | 2018-12-15 14:49 | P.PN ---
Subjective Progress Note Date: 12/15/18 58-year-old female patient with advanced COPD with a baseline FEV1 of less than 30% of predicted was itchy chest tube for now as the patient had a failure to wean and the past due to complications of COPD and she required a tracheostomy tube insertion for that reason. This is a Shiley tracheostomy tube in place. The patient also has a PEG tube. The [facility] earlier hospitalization and following that the patient went to a [facility]pc in [place] for further recuperation. The patient was eventually improved and she was discharged home with 2 large he ventilator that she's been using on a regular basis. The patient came back to the hospital because of worsening shortness of breath and she was diagnosed having an acute COPD exacerbation. Currently she is attached back to a mechanical ventilator. I was told that yesterday she went all day on a CPAP and she spent the night on a CPAP another this morning the patient was quite lethargic and short of breath. A repeat blood gases was done and the patient was found to be in acute on top of chronic respiratory acidosis and based on that the patient was placed back on assist control mode of ventilation with tidal volume of 325 with an FiO2 of 40% and PEEP of 5 and the rate of 16. The flow is at 40. The patient is awake and alert. Denies having any major respiratory distress while being on a mechanical ventilator. Chest x-ray shows hyperinflation. No acute pulmonary infiltration or pneumonias. She is on normal state rate of 75 mL an hour. She received a dose of Lasix yesterday as the patient was in a positive fluid balance. I still see some increased edema in the upper and lower extremities and for that reason I will order some additional dose of Lasix. No fever or chills. No chest pain. No altered mentation and she is able to answer questions appropriately without any major difficulties. Objective - Vital Signs Vital signs: Vital Signs Temp 98.7 F 12/15/18 12:00 Pulse 91 12/15/18 14:07 Resp 22 12/15/18 14:00 BP 147/89 12/15/18 14:00 Pulse Ox 96 12/15/18 14:00 Intake & Output 12/14/18 12/15/18 12/15/18 18:59 06:59 18:59 Intake Total 1221 1380 980 Output Total 5025 595 4171 Balance -494 876 -160 Weight 50.9 kg Intake: IV 825 1320 730 ACETAMINOPHEN IV (For NPO 100 ) 1,000 mg In Empty Bag 1 bag @ 400 mls/hr IVPB Q6HR PRN Rx#:[id number] Meropenem 1 gm In Sodium 100 100 Chloride 0.9% 100 ml @ 200 mls/hr IVPB Q12HR [facility] Rx#:[id number] Sodium Chloride 0.9% 1, 825 870 380 000 ml @ 20 mls/hr IV . Q24H [facility] Rx#:[id number] Vancomycin 1,000 mg In 250 250 Sodium Chloride 0.9% 250 ml @ 125 mls/hr IVPB Q8HR [facility] Rx#:[id number] Intake, IV Titration 100 250 Amount Meropenem 1 gm In Sodium 100 Chloride 0.9% 100 ml @ 200 mls/hr IVPB Q12HR [facility] Rx#:[id number] Sodium Glycerophosphate 250 10 mmol In Sodium Chloride 0.9% 250 ml @ 31 .25 mls/hr IV ONCE ONE Rx #:[id number] Oral 296 60 Output: Urine 0482 704 6011 Other: Voiding Method Indwelling Catheter Indwelling Catheter Indwelling Catheter - Exam Thin and frail female patient, currently has a tracheostomy tube in place and the patient is attached a mechanical ventilator. Head exam was generally normal. There was no scleral icterus or corneal arcus. Mucous membranes were moist. Neck was supple and without jugular venous distension, thyromegaly, or carotid bruits. Carotids were easily palpable bilaterally. There was no adenopathy. The patient has a Shiley tracheostomy tube #6 cuffed but not fenestrated. Lungs are diminished bilaterally along with scattered expiratory wheezes throughout the lung simmons. The patient has bilateral breast implants. Cardiac exam revealed the PMI to be normally situated and sized. The rhythm was regular and no extrasystoles were noted during several minutes of auscultation. The first and second heart sounds were normal and physiologic splitting of the second heart sound was noted. There were no murmurs, rubs, clicks, or gallops. Abdominal exam revealed normal bowel sounds. The abdomen was soft, non-tender, and without masses, organomegaly, or appreciable enlargement of the abdominal aorta. Examination of the extremities revealed easily palpable radial, femoral and pedal pulses. There was no cyanosis, clubbing or and there is a +1 pitting edema lower extremities bilaterally. Examination of the skin revealed no evidence of significant rashes, suspicious appearing nevi or other concerning lesions. Neurologically awake and alert and there is no focal neurological deficits. - Labs CBC & Chem 7: 12/15/18 04:08 12/15/18 04:08 Labs: Abnormal Lab Results - Last 24 Hours (Table) 12/14/18 12/15/18 12/15/18 Range/Units 17:17 04:08 04:08 WBC 15.7 H (3.8-10.6) k/uL Hgb 11.2 L (11.4-16.0) gm/dL MCHC 28.7 L (31.0-37.0) g/dL Neutrophils # 14.2 H (1.3-7.7) k/uL Lymphocytes # 0.5 L (1.0-4.8) k/uL ABG pH (7.35-7.45) ABG pCO2 (35-45) mmHg ABG pO2 (83-108) mmHg ABG HCO3 (21-25) mmol/L ABG Total CO2 (19-24) mmol/L ABG O2 Saturation (94-97) % Carbon Dioxide 48 H* (22-30) mmol/L BUN 20 H (7-17) mg/dL Creatinine 0.34 L (0.52-1.04) mg/dL Glucose 127 H (74-99) mg/dL POC Glucose (mg/dL) 105 H (75-99) mg/dL Phosphorus 2.2 L (2.5-4.5) mg/dL 12/15/18 12/15/18 12/15/18 Range/Units 10:06 11:15 12:38 WBC (3.8-10.6) k/uL Hgb (11.4-16.0) gm/dL MCHC (31.0-37.0) g/dL Neutrophils # (1.3-7.7) k/uL Lymphocytes # (1.0-4.8) k/uL ABG pH 7.24 L 7.29 L (7.35-7.45) ABG pCO2 111 H* 109 H* (35-45) mmHg ABG pO2 60 L 56 L* (83-108) mmHg ABG HCO3 48 H* 53 H* (21-25) mmol/L ABG Total CO2 51 H 56 H (19-24) mmol/L ABG O2 Saturation 90.4 L 89.3 L (94-97) % Carbon Dioxide (22-30) mmol/L BUN (7-17) mg/dL Creatinine (0.52-1.04) mg/dL Glucose (74-99) mg/dL POC Glucose (mg/dL) 127 H (75-99) mg/dL Phosphorus (2.5-4.5) mg/dL Microbiology - Last 24 Hours (Table) 12/12/18 07:55 Blood Culture - Preliminary Blood No Growth after 72 hours 12/12/18 11:36 Urine Culture - Final Urine,Catheterized Staphylococcus epidermidis 12/12/18 08:43 Gram Stain - Final Sputum Sputum Culture - Final Pseudomonas aeruginosa Assessment and Plan Plan: Assessment 1 acute on chronic hypercapnic and hypoxic respiratory failure secondary to advanced COPD and COPD exacerbation. The patient remains dependent on mechanical ventilator. After being placed on CPAP throughout the day yesterday the patient had to go back on assist control mode of ventilation because of worsening shortness of breath and worsening respirations acidosis 2 chronic hypercapnic respiratory failure 4 chronic hypoxic respiratory failure 5 and states COPD, stage IV COPD and the patient has a tracheostomy tube in place and the patient has been utilizing intramedullary ventilator overnight at home 6 history of PEG tube placement for nutritional support 7 chronic depression 8 history of breast cancer with bilateral mastectomy 9 history of bilateral breast implants 10 days history of pneumothorax requiring chest tube insertion as well as a wedge resection of the lung and mechanical pleurodesis 11 increased lower oximetry edema 12 motor weakness 13 pseudomonas in the lung probably a colonizer versus a true infection. Currently on IV Merrem. Plan We'll keep the patient assist-control mode of ventilation. Increase the tidal volume to see on 350 mL. Increase respiratory rate up to 20. Continue the bronchodilators. Continue to systemic steroids. Put the patient on Lasix 20 mg IV push every 12 hours over the next 24 hours. The urine culture is shown staph which is a contaminant. Based on that I'm going to discontinue the vancomycin. Keep the IV Merrem regarding pseudomonas in the lung. DVT and GI prophylaxis. Klonopin for chronic anxiety. We'll continue to follow. Condition is critical. Outcome is poor based on the above-mentioned comorbidities. This evaluation was done and 35 minutes and there is a critically care evaluation. Time with Patient: Greater than 30
[2018-12-15 17:07] LABS: Glucose,Whole Blood 125 mg/dL (75-99)
[2018-12-15] MEDS: clonazePAM 1 MG TAB PO SCH ×4 (17:28→21:50)
[2018-12-15] MEDS: LACTOBACILLUS ACIDOPH & BULGAR 1 EACH PACKET PO SCH ×2 (17:31→17:51)
[2018-12-15] MEDS: ACETAMINOPHEN IV (For NPO) 1,000 MG in EMPTY BAG 1 BAG IVPB PRN (20:45)
--- NOTE | 2018-12-15 21:20 | P.PN ---
Subjective This is a very pleasant 58-year-old female with a history of COPD, B/L breast cancer , had previous mastectomy and reconstruction ,s/p tracheostomy in 2018. who presents with dyspena , increased cough and yellow phlegm and sometimes blood tinged. his saturation is 95% on 40% FIO, wbc 15.7K. increased bicarb, creatinine 0.3. sugar is controlled. has pseudomonas in sputum culture and E.Coli in Urine culture . chest x-ray: chronic changes with emphysema. pt remains in the ICU and she is been followed up by pulmonary team closely Objective - Vital Signs Vital signs: Vital Signs Temp 98.3 F 12/15/18 08:00 Pulse 92 12/15/18 11:00 Resp 17 12/15/18 11:00 BP 121/72 12/15/18 10:30 Pulse Ox 91 L 12/15/18 11:00 Intake & Output 12/14/18 12/15/18 12/15/18 18:59 06:59 18:59 Intake Total 1221 1380 920 Output Total 1715 504 215 Balance -494 876 705 Weight 50.9 kg Intake: IV 825 1320 670 ACETAMINOPHEN IV (For NPO 100 ) 1,000 mg In Empty Bag 1 bag @ 400 mls/hr IVPB Q6HR PRN Rx#:[id number] Meropenem 1 gm In Sodium 100 100 Chloride 0.9% 100 ml @ 200 mls/hr IVPB Q12HR [facility] Rx#:[id number] Sodium Chloride 0.9% 1, 825 870 320 000 ml @ 20 mls/hr IV . Q24H [facility] Rx#:[id number] Vancomycin 1,000 mg In 250 250 Sodium Chloride 0.9% 250 ml @ 125 mls/hr IVPB Q8HR [facility] Rx#:[id number] Intake, IV Titration 100 250 Amount Meropenem 1 gm In Sodium 100 Chloride 0.9% 100 ml @ 200 mls/hr IVPB Q12HR [facility] Rx#:[id number] Sodium Glycerophosphate 250 10 mmol In Sodium Chloride 0.9% 250 ml @ 31 .25 mls/hr IV ONCE ONE Rx #:[id number] Oral 296 60 Output: Urine 1715 504 215 Other: Voiding Method Indwelling Catheter Indwelling Catheter Indwelling Catheter - Exam GENERAL: The patient is alert and oriented x3, not in any acute distress. Well developed, well nourished. HEENT: Pupils are round and equally reacting to light. EOMI. No scleral icterus. No conjunctival pallor. Normocephalic, atraumatic. No pharyngeal erythema. No thyromegaly. CARDIOVASCULAR: S1 and S2 present. No murmurs, rubs, or gallops. -PULMONARY: Chest is clear to auscultation, scattered wheezing . no crackles. ABDOMEN: Soft, nontender, nondistended, normoactive bowel sounds. No palpable organomegaly. MUSCULOSKELETAL: No joint swelling or deformity. EXTREMITIES: No cyanosis, clubbing, or pedal edema. NEUROLOGICAL: Gross neurological examination did not reveal any focal deficits. SKIN: No rashes. - Labs CBC & Chem 7: 12/15/18 04:08 12/15/18 04:08 Labs: Abnormal Lab Results - Last 24 Hours (Table) 12/14/18 12/15/18 12/15/18 Range/Units 17:17 04:08 04:08 WBC 15.7 H (3.8-10.6) k/uL Hgb 11.2 L (11.4-16.0) gm/dL MCHC 28.7 L (31.0-37.0) g/dL Neutrophils # 14.2 H (1.3-7.7) k/uL Lymphocytes # 0.5 L (1.0-4.8) k/uL ABG pH (7.35-7.45) ABG pCO2 (35-45) mmHg ABG pO2 (83-108) mmHg ABG HCO3 (21-25) mmol/L ABG Total CO2 (19-24) mmol/L ABG O2 Saturation (94-97) % Carbon Dioxide 48 H* (22-30) mmol/L BUN 20 H (7-17) mg/dL Creatinine 0.34 L (0.52-1.04) mg/dL Glucose 127 H (74-99) mg/dL POC Glucose (mg/dL) 105 H (75-99) mg/dL Phosphorus 2.2 L (2.5-4.5) mg/dL 12/15/18 12/15/18 Range/Units 10:06 11:15 WBC (3.8-10.6) k/uL Hgb (11.4-16.0) gm/dL MCHC (31.0-37.0) g/dL Neutrophils # (1.3-7.7) k/uL Lymphocytes # (1.0-4.8) k/uL ABG pH 7.24 L (7.35-7.45) ABG pCO2 111 H* (35-45) mmHg ABG pO2 60 L (83-108) mmHg ABG HCO3 48 H* (21-25) mmol/L ABG Total CO2 51 H (19-24) mmol/L ABG O2 Saturation 90.4 L (94-97) % Carbon Dioxide (22-30) mmol/L BUN (7-17) mg/dL Creatinine (0.52-1.04) mg/dL Glucose (74-99) mg/dL POC Glucose (mg/dL) 127 H (75-99) mg/dL Phosphorus (2.5-4.5) mg/dL Microbiology - Last 24 Hours (Table) 12/12/18 07:55 Blood Culture - Preliminary Blood No Growth after 72 hours 12/12/18 11:36 Urine Culture - Final Urine,Catheterized Staphylococcus epidermidis 12/12/18 08:43 Gram Stain - Final Sputum Sputum Culture - Final Pseudomonas aeruginosa Assessment and Plan Assessment: acute on chronic respiratory failure acute copd exacerbation s/p tracheostomy in 2018 S/p PEG tube for feeding B/L breast cancer , had previous mastectomy and reconstruction leukocytosis Plan: we recommend to contiue with the breathing treatment and solumedrol 40 mg, resume her home medication , we keep to monitor pt closely with vitals and labs .pulmonary team are following the pt and she remains in the ICU for now for further monitoring . heparin for DVT prophylaxis and protonix for GI prophylaxis , further recommendation will be according to the pt progress
[2018-12-15] MEDS ORDERED: VANCOMYCIN TROUGH DUE 1 EACH MISC MISCELLANE ONE (23:00)
[2018-12-16] MEDS: methylPREDNISolone SOD SUCCI 40 MG/ML 1 ML VIAL IV SCH ×5 (00:28→23:14)
[2018-12-16] MEDS: IPRATROPIUM-ALBUTEROL 3 ML NEB INHALATION SCH ×6 (03:09→23:28)
[2018-12-16 05:03] LABS: Basophils % (A) 0 %; Eosinophils # (A) 0.1 k/uL (0-0.7); Eosinophils % (A) 1 %; HCT 37.9 % (34.0-46.0); HGB 11.2 gm/dL (11.4-16.0); Hypochromasia Marked; Lymphocytes # (A) 0.8 k/uL (1.0-4.8); Lymphocytes % (A) 10 %; MCHC 29.5 g/dL (31.0-37.0); MCV 94.9 fL (80.0-100.0); Mean Platelet Volume 7.5; Monocytes # (A) 0.3 k/uL (0-1.0); Monocytes % (A) 4 %; Neutrophils # (A) 6.5 k/uL (1.3-7.7); Neutrophils % (A) 85 %; Platelet Count 221 k/uL (150-450); RBC 3.99 m/uL (3.80-5.40); RDW 13.6 % (11.5-15.5); WBC 7.7 k/uL (3.8-10.6)
[2018-12-16 05:14] LABS: Blood Urea Nitrogen 30 mg/dL (7-17); Calcium 9.4 mg/dL (8.4-10.2); Chloride 95 mmol/L (98-107); Glucose 136 mg/dL (74-99); Magnesium 2.1 mg/dL (1.6-2.3); Phosphorus 1.7 mg/dL (2.5-4.5); Potassium 4.3 mmol/L (3.5-5.1); Sodium 142 mmol/L (137-145)
[2018-12-16 05:21] LABS: Anion Gap -1 mmol/L
[2018-12-16 05:24] LABS: ABG Base Excess 29.7 mmol/L; ABG Oxygen Saturation 91.8 % (94-97); ABG PH 7.41 (7.35-7.45); ABG TCO2 57 mmol/L (19-24)
[2018-12-16 05:28] LABS: ABG HCO3 54 mmol/L (21-25); ABG PCO2 86 mmHg (35-45); ABG PO2 58 mmHg (83-108)
[2018-12-16 05:33] LABS: Carbon Dioxide 48 mmol/L (22-30)
[2018-12-16] MEDS: SODIUM PHOSPHATE 10 MMOL in SODIUM CHLORIDE 0.9% 250 ML IVPB SCH ×2 (08:30→11:26)
[2018-12-16] MEDS: FORMOTEROL FUMARATE 20 MCG/2 ML NEBU INHALATION SCH ×2 (08:31→19:38)
[2018-12-16] MEDS: BUDESONIDE 1 MG/2 ML NEBU INHALATION SCH ×2 (08:31→19:38)
[2018-12-16] MEDS: MEROPENEM 1 GM in SODIUM CHLORIDE 0.9% 100 ML IVPB SCH ×2 (08:31→21:11)
[2018-12-16] MEDS: HEPARIN SODIUM,PORCINE 5,000 UNIT/ML 1 ML VIAL SQ SCH ×2 (08:32→21:11)
[2018-12-16] MEDS: PANTOPRAZOLE 40 MG/10 ML VIAL IV SCH (08:32)
[2018-12-16] MEDS ORDERED: FUROSEMIDE 10 MG/ML 4 ML VIAL IV STA (09:07)
--- NOTE | 2018-12-16 09:16 | XR ---
EXAMINATION TYPE: XR chest 1V portable DATE OF EXAM: 12/16/2018 COMPARISON: 12/15/2018 INDICATION: Desaturation difficulty breathing TECHNIQUE: Single frontal view of the chest is obtained. FINDINGS: The heart size is normal. The pulmonary vasculature is there is hyperinflation flattening the diaphragms compatible COPD. Some tenting of the right diaphragm may be related to some atelectasis. Postsurgical changes are at the ri ght apex. No pneumothorax is evident. Tracheostomy tube is in the midline. EKG leads overlie the chest. IMPRESSION: 1. Minimal atelectasis at the diaphragms. 2. COPD.
[2018-12-16] MEDS: LACTOBACILLUS ACIDOPH & BULGAR 1 EACH PACKET PO SCH ×3 (09:43→17:18)
--- NOTE | 2018-12-16 10:18 | P.PN ---
Subjective Progress Note Date: 12/16/18 58-year-old female patient with advanced COPD with a baseline FEV1 of less than 30% of predicted was itchy chest tube for now as the patient had a failure to wean and the past due to complications of COPD and she required a tracheostomy tube insertion for that reason. This is a Shiley tracheostomy tube in place. The patient also has a PEG tube. [facility] and following that the patient went to a shelter in [place] for further recuperation. The patient was eventually improved and she was discharged home with 2 large he ventilator that she's been using on a regular basis. The patient came back to the hospital because of worsening shortness of breath and she was diagnosed having an acute COPD exacerbation. Currently she is attached back to a mechanical ventilator. I was told that yesterday she went all day on a CPAP and she spent the night on a CPAP another this morning the patient was quite lethargic and short of breath. A repeat blood gases was done and the patient was found to be in acute on top of chronic respiratory acidosis and based on that the patient was placed back on assist control mode of ventilation with tidal volume of 325 with an FiO2 of 40% and PEEP of 5 and the rate of 16. The flow is at 40. The patient is awake and alert. Denies having any major respiratory distress while being on a mechanical ventilator. Chest x-ray shows hyperinflation. No acute pulmonary infiltration or pneumonias. She is on normal state rate of 75 mL an hour. She received a dose of Lasix yesterday as the patient was in a positive fluid balance. I still see some increased edema in the upper and lower extremities and for that reason I will order some additional dose of Lasix. No fever or chills. No chest pain. No altered mentation and she is able to answer questions appropriately without any major difficulties. On 12/16/2018 and seeing this patient for a follow-up. She is awake and alert. I did place a tracheostomy tube yesterday I inserted another Shiley trach tube #6 to improve the air leaks. The patient was having considerable amount of air leaks on the tracheostomy tube and this improved. This morning, it was noted that the patient was having elevated peak airway pressures and auto PEEP was quite high. Based on this, I And tidal volume of 350. The rate is 16. Increase the flow up to 70 and this obviously improved with her I:E ratio which is currently at 1-4. PEEP was kept at 5. The chest x-rays showing significant hyperinflation. The air entry is marked limited bilaterally with scattered expiratory wheezes throughout the lung simmons patient remains on accommodation bronchodilators and steroids. She remains on IV Merrem regarding pseudomonas in her lungs. Unable to see the patient at this point in time and she will obviously need a PEG tube insertion for nutritional support. Morning blood gases showed a pH of 7.41 with a pCO2 of 86 and pO2 of 58 with an FiO2 of 40%. White cell count is not elevated. She is arousable. She is on Klonopin and this needs to be replaced with IV Ativan for chronic anxiety. Unable to take anything orally at this point in time. Objective - Vital Signs Vital signs: Vital Signs Temp 98.1 F 12/16/18 08:00 Pulse 90 12/16/18 10:00 Resp 19 12/16/18 10:00 BP 154/96 12/16/18 10:00 Pulse Ox 95 12/16/18 10:00 Intake & Output 12/15/18 12/16/18 12/16/18 18:59 06:59 18:59 Intake Total 1208 500 430 Output Total 1305 137 105 Balance -97 363 325 Weight 50 kg Intake: IV 810 440 180 ACETAMINOPHEN IV (For NPO 100 ) 1,000 mg In Empty Bag 1 bag @ 400 mls/hr IVPB Q6HR PRN Rx#:[id number] Meropenem 1 gm In Sodium 100 100 100 Chloride 0.9% 100 ml @ 200 mls/hr IVPB Q12HR [facility] Rx#:[id number] Sodium Chloride 0.9% 1, 460 240 80 000 ml @ 20 mls/hr IV . Q24H [facility] Rx#:[id number] Vancomycin 1,000 mg In 250 Sodium Chloride 0.9% 250 ml @ 125 mls/hr IVPB Q8HR [facility] Rx#:[id number] Intake, IV Titration 250 250 Amount Sodium Glycerophosphate 250 10 mmol In Sodium Chloride 0.9% 250 ml @ 31 .25 mls/hr IV ONCE ONE Rx #:[id number] Sodium Phosphate 10 mmol 250 In Sodium Chloride 0.9% 250 ml @ 125 mls/hr IVPB Q2H [facility] Rx#:[id number] Oral 148 60 Output: Urine 1305 137 105 Other: Voiding Method Indwelling Catheter Indwelling Catheter Indwelling Catheter - Exam Thin and frail female patient, currently has a tracheostomy tube in place and the patient is attached a mechanical ventilator. Head exam was generally normal. There was no scleral icterus or corneal arcus. Mucous membranes were moist. Neck was supple and without jugular venous distension, thyromegaly, or carotid bruits. Carotids were easily palpable bilaterally. There was no adenopathy. The patient has a Shiley tracheostomy tube #6 cuffed but not fenestrated. Lungs are diminished bilaterally along with scattered expiratory wheezes throughout the lung simmons. The patient has bilateral breast implants. Cardiac exam revealed the PMI to be normally situated and sized. The rhythm was regular and no extrasystoles were noted during several minutes of auscultation. The first and second heart sounds were normal and physiologic splitting of the second heart sound was noted. There were no murmurs, rubs, clicks, or gallops. Abdominal exam revealed normal bowel sounds. The abdomen was soft, non-tender, and without masses, organomegaly, or appreciable enlargement of the abdominal aorta. Examination of the extremities revealed easily palpable radial, femoral and pedal pulses. There was no cyanosis, clubbing or and there is a +1 pitting edema lower extremities bilaterally. Examination of the skin revealed no evidence of significant rashes, suspicious appearing nevi or other concerning lesions. Neurologically awake and alert and there is no focal neurological deficits. - Labs CBC & Chem 7: 12/16/18 04:21 12/16/18 04:21 Labs: Abnormal Lab Results - Last 24 Hours (Table) 12/15/18 12/15/18 12/15/18 Range/Units 10:06 11:15 12:38 Hgb (11.4-16.0) gm/dL MCHC (31.0-37.0) g/dL Lymphocytes # (1.0-4.8) k/uL ABG pH 7.24 L 7.29 L (7.35-7.45) ABG pCO2 111 H* 109 H* (35-45) mmHg ABG pO2 60 L 56 L* (83-108) mmHg ABG HCO3 48 H* 53 H* (21-25) mmol/L ABG Total CO2 51 H 56 H (19-24) mmol/L ABG O2 Saturation 90.4 L 89.3 L (94-97) % Chloride (98-107) mmol/L Carbon Dioxide (22-30) mmol/L BUN (7-17) mg/dL Creatinine (0.52-1.04) mg/dL Glucose (74-99) mg/dL POC Glucose (mg/dL) 127 H (75-99) mg/dL Phosphorus (2.5-4.5) mg/dL 12/15/18 12/16/18 12/16/18 Range/Units 17:06 04:21 04:21 Hgb 11.2 L (11.4-16.0) gm/dL MCHC 29.5 L (31.0-37.0) g/dL Lymphocytes # 0.8 L (1.0-4.8) k/uL ABG pH (7.35-7.45) ABG pCO2 (35-45) mmHg ABG pO2 (83-108) mmHg ABG HCO3 (21-25) mmol/L ABG Total CO2 (19-24) mmol/L ABG O2 Saturation (94-97) % Chloride 95 L (98-107) mmol/L Carbon Dioxide 48 H* (22-30) mmol/L BUN 30 H (7-17) mg/dL Creatinine 0.36 L (0.52-1.04) mg/dL Glucose 136 H (74-99) mg/dL POC Glucose (mg/dL) 125 H (75-99) mg/dL Phosphorus 1.7 L (2.5-4.5) mg/dL 12/16/18 Range/Units 05:18 Hgb (11.4-16.0) gm/dL MCHC (31.0-37.0) g/dL Lymphocytes # (1.0-4.8) k/uL ABG pH (7.35-7.45) ABG pCO2 86 H* (35-45) mmHg ABG pO2 58 L* (83-108) mmHg ABG HCO3 54 H* (21-25) mmol/L ABG Total CO2 57 H (19-24) mmol/L ABG O2 Saturation 91.8 L (94-97) % Chloride (98-107) mmol/L Carbon Dioxide (22-30) mmol/L BUN (7-17) mg/dL Creatinine (0.52-1.04) mg/dL Glucose (74-99) mg/dL POC Glucose (mg/dL) (75-99) mg/dL Phosphorus (2.5-4.5) mg/dL Microbiology - Last 24 Hours (Table) 12/15/18 11:56 Urine Culture - Preliminary Urine,Catheterized 12/12/18 07:55 Blood Culture - Preliminary Blood No Growth after 72 hours Assessment and Plan Plan: Assessment 1 acute on chronic hypercapnic and hypoxic respiratory failure secondary to advanced COPD and COPD exacerbation. The patient's acid base status is adequate. Nevertheless, the peak airway pressure is elevated and the patient is having significant amount of air trapping and off the PEEP. Based on that, the necessity vent changes were done. The flow was increased. Recurrent peak pressures down to 34 cm of water. Not ready for any weaning at this point in time. Chest x-ray shows no acute abnormalities other than hyperinflation and there is no evidence of any pneumonia or consolidation. 2 chronic hypercapnic respiratory failure 4 chronic hypoxic respiratory failure 5 and states COPD, stage IV COPD and the patient has a tracheostomy tube in place and the patient has been utilizing Trilogy ventilator overnight at home 6 history of PEG tube placement for nutritional support 7 chronic depression 8 history of breast cancer with bilateral mastectomy 9 history of bilateral breast implants 10 days history of pneumothorax requiring chest tube insertion as well as a wedge resection of the lung and mechanical pleurodesis 11 increased lower extremity edema 12 motor weakness 13 pseudomonas in the lung probably a colonizer versus a true infection. Currently on IV Merrem. Plan Continue vent support. No weaning trials for today. Continue bronchodilators. Continue systemic steroids. Continue IV Merrem. Consult GI regarding the insertion of a PEG tube for nutritional support. Replace lorazepam with IV Ativan 0.5 mg 3 times a day [id number] he had continue rest of the supportive care. Condition is critical. Prognosis poor baseline above- mentioned comorbidities and advanced lung disease. There is a critically care evaluation that was done in more than 30 minutes. Time with Patient: Greater than 30
[2018-12-16] MEDS: CHLORHEXIDINE GLUCONATE 15 ML CUP MUCOUS MEM SCH ×2 (10:22→21:11)
[2018-12-16] MEDS: LORazepam 2 MG/ML INJ IV PRN ×2 (10:22→17:48)
--- NOTE | 2018-12-16 14:27 | P.CONS ---
History of Present Illness - Reason for Consult Consult date: 12/16/18 peg tube insertion Requesting physician: Michael Coles - Chief Complaint Shortness of breath - History of Present Illness 58-year-old female with a history of COPD admitted with acute on chronic hypercapnic hypoxic respiratory failure COPD exacerbation with tracheostomy tube placement yesterday. Patient has history of PEG tube placed April 2018 by CV surgery few months ago for nutritional support unable to wean from the vent. PEG tube was removed a few months ago. Patient is now unable to maintain her nutritional status and consult is requested for re-insertion of PEG tube. Patient being closely monitored in the ICU setting. Patient was having considerable amount of air leak on the tracheostomy tube since improved. Increased elevated peak airway pressures this morning with subsequent improvement. Weaning planned at this time. Chest x-ray shows no acute abnormalities evident hyperinflation and no evidence of pneumonia or consolidation. White count 7.7. Hemoglobin 11.2. Platelet 221. Review of Systems Unable to obtain secondary to tracheostomy placement history obtained from medical records Constitutional: Denies fever, chills, sweats, weight gain, or loss. HEENT: Negative for migraines, blurred vision or loss, earaches, drainage, tinnitus, oral mucosal lesions, dysphagia, or odynophagia. CARDIAC: Negative for chest pain, arrhythmias, or palpitation. RESPIRATORY: Admitted with shortness of breath, severe COPD. GI: See HPI for pertinent findings. : Negative for hematuria, urgency, frequency, polyuria, or dysuria. GYNc: Negative vaginal discharge. MUSCULOSKELETAL: Negative for muscle aches, swelling, arthritis, and arthralgias. NEUROLOGIC: Negative for stroke or TIA. ENDOCRINE: Negative for thyroid problems. SKIN: Negative for rash or itching. PSYCHIATRIC: History of depression. Past Medical History Past Medical History: Cancer, COPD, Pneumonia, Respiratory Disorder Additional Past Medical History / Comment(s): Pt recently admitted to [facility] on for acute exacerbation COPD/purulent tracheobronchitis. Other hx: Chronic respiratory failure with trach collar during the day and vent support at night, R sided spontaneous pneumos in 2005 with surgery and again in 2017 with chest tube, breast cancer with bilateral mastectomies/reconstruction. History of Any Multi-Drug Resistant Organisms: None Reported Past Surgical History: Ablation, Breast Surgery Additional Past Surgical History / Comment(s): Bilateral mastectomies with bilateral breast reconstruction in 2004, uterine ablation in 2009, spontaneous pneumothorax in 2006 with wedge resection and mechanical pleurodesis, right pneumothorax june 2017 with chest tube placement, colonoscopy. Past Anesthesia/Blood Transfusion Reactions: No Reported Reaction Past Psychological History: No Psychological Hx Reported Additional Psychological History / Comment(s): Pt resides with her mother and her son. She is on O2 at 2L/NC ATC now. She has a nebulizer. She uses no assistive device. She can drive. She states she has had increased depression lately r/t her health. She states the past couple of days she has thought it would be better if she just "killed myself". She states she has not thought of how she might do this. She then states she would never really kill herself because of her advent beliefs. Smoking Status: Former smoker Past Alcohol Use History: None Reported Additional Past Alcohol Use History / Comment(s): Pt started smoking as a teen and quit in 2005. Past Drug Use History: None Reported - Past Family History Mother Family Medical History: Diabetes Mellitus, Hypertension Additional Family Medical History / Comment(s): mother is 84 Father Family Medical History: COPD Additional Family Medical History / Comment(s): lung cancer Sister(s) Additional Family Medical History / Comment(s): She has 4 sisters, 1 sister with history of breast cancer, and thyroid disorder, 1 sister with history of rheumatoid arthritis, and another sister with history of lupus. Brother(s) Additional Family Medical History / Comment(s): She has 3 brothers, 1 brother has diabetes mellitus type 2. Medications and Allergies Home Medications Medication Instructions Recorded Confirmed Type Budesonide-Formot 160-4.5 Mcg 2 puff INHALATION RT-BID #120 puff 07/07/17 Rx [Symbicort 160-4.5 Mcg Inhaler] Ipratropium-Albuterol Nebulize 3 ml INHALATION RT-QID 12/12/18 12/12/18 History [Duoneb 0.5 mg-3 mg/3 ml Soln] PARoxetine HCL [Paxil] 40 mg PO DAILY 12/12/18 12/12/18 History clonazePAM [KlonoPIN] 1 mg PO QID 12/12/18 12/12/18 History predniSONE 10 mg PO DAILY 12/12/18 12/12/18 History Allergies Allergy/AdvReac Type Severity Reaction Status Date / Time levofloxacin [From Levaquin] Allergy Chest Pain Verified 12/14/18 11:51 Physical Exam Vitals: Vital Signs Temp Pulse Resp BP Pulse Ox 12/16/18 14:00 82 18 138/82 96 12/16/18 13:00 86 18 134/88 96 12/16/18 12:32 92 12/16/18 12:03 93 12/16/18 12:00 98.6 F 93 22 140/86 96 12/16/18 11:00 90 21 154/110 94 L 12/16/18 10:00 90 19 154/96 95 12/16/18 09:00 82 22 135/91 96 12/16/18 08:53 85 12/16/18 08:52 85 12/16/18 08:34 93 12/16/18 08:00 98.1 F 82 22 129/89 97 12/16/18 07:00 79 22 129/88 96 12/16/18 06:00 82 22 138/96 12/16/18 05:00 79 22 128/92 94 L 12/16/18 04:00 97.9 F 86 22 127/90 94 L 12/16/18 03:30 76 22 97 12/16/18 03:28 82 12/16/18 03:11 81 12/16/18 03:00 81 22 130/91 95 12/16/18 02:30 78 22 132/86 96 12/16/18 02:00 80 22 129/89 96 12/16/18 01:30 80 22 127/85 94 L 12/16/18 01:00 82 22 134/91 95 12/16/18 00:30 81 22 144/99 95 12/16/18 00:00 98.0 F 85 22 102/86 94 L 12/15/18 23:48 82 12/15/18 23:38 85 12/15/18 23:30 91 26 H 125/83 92 L 12/15/18 23:29 75 22 125/83 96 12/15/18 23:00 92 22 125/83 95 12/15/18 22:30 85 22 135/90 94 L 12/15/18 22:00 87 22 133/89 98 12/15/18 21:30 90 22 135/89 99 12/15/18 21:00 89 22 136/93 100 12/15/18 20:30 97.8 F 93 22 123/87 95 12/15/18 20:08 89 12/15/18 20:00 96 22 130/88 98 12/15/18 19:46 96 12/15/18 19:33 93 12/15/18 19:30 89 19 124/87 95 12/15/18 19:00 88 22 132/89 94 L 12/15/18 18:30 92 22 136/96 93 L 12/15/18 18:00 94 19 128/89 95 12/15/18 17:30 92 22 146/93 95 12/15/18 17:00 92 24 157/92 92 L 12/15/18 16:52 90 12/15/18 16:37 95 12/15/18 16:30 99 27 H 151/92 88 L 12/15/18 16:00 98.5 F 96 22 149/105 90 L 12/15/18 15:00 98 25 H 147/104 88 L 12/15/18 14:30 93 22 140/89 92 L Intake and Output 12/15/18 12/16/18 12/16/18 22:59 06:59 14:59 Intake Total 568 160 510 Output Total 222 80 240 Balance 346 80 270 Intake: IV 360 160 260 ACETAMINOPHEN IV (For NPO 100 ) 1,000 mg In Empty Bag 1 bag @ 400 mls/hr IVPB Q6HR PRN Rx#:[id number] Meropenem 1 gm In Sodium 100 100 Chloride 0.9% 100 ml @ 200 mls/hr IVPB Q12HR [facility] Rx#:[id number] Sodium Chloride 0.9% 1, 160 160 160 000 ml @ 20 mls/hr IV . Q24H [facility] Rx#:[id number] Intake, IV Titration 250 Amount Sodium Phosphate 10 mmol 250 In Sodium Chloride 0.9% 250 ml @ 125 mls/hr IVPB Q2H [facility] Rx#:[id number] Oral 208 Output: Urine 222 80 240 Other: Voiding Method Indwelling Catheter Indwelling Catheter Indwelling Catheter Weight 50 kg 50 kg General appearance: The patient is alert, in no acute distress. Unable to speak tracheostomy presently on a ventilator. HET: Head is normocephalic and atraumatic. Pupils are equal and reactive. Oropharynx is clear without lesions. Neck: Supple without lymphadenopathy. Trachea midline. Heart: S1 S2. Regular rate and rhythm. Lungs: No diminished bilaterally. Abdomen: Soft, nontender, nondistended with bowel sounds. No peritoneal signs. No palpable organomegaly or masses. Extremities: Normal skin color and turgor. No cyanosis, rash, ulceration, clubbing, or edema. Radial and pedal pulses are 2/4 bilaterally. Neurological: No focal deficits. Strength and sensation are grossly intact. Results CBC & Chem 7: 12/16/18 04:21 12/16/18 04:21 Labs: Abnormal Lab Results - Last 24 Hours (Table) 12/15/18 12/16/18 12/16/18 Range/Units 17:06 04:21 04:21 Hgb 11.2 L (11.4-16.0) gm/dL MCHC 29.5 L (31.0-37.0) g/dL Lymphocytes # 0.8 L (1.0-4.8) k/uL ABG pCO2 (35-45) mmHg ABG pO2 (83-108) mmHg ABG HCO3 (21-25) mmol/L ABG Total CO2 (19-24) mmol/L ABG O2 Saturation (94-97) % Chloride 95 L (98-107) mmol/L Carbon Dioxide 48 H* (22-30) mmol/L BUN 30 H (7-17) mg/dL Creatinine 0.36 L (0.52-1.04) mg/dL Glucose 136 H (74-99) mg/dL POC Glucose (mg/dL) 125 H (75-99) mg/dL Phosphorus 1.7 L (2.5-4.5) mg/dL 12/16/18 Range/Units 05:18 Hgb (11.4-16.0) gm/dL MCHC (31.0-37.0) g/dL Lymphocytes # (1.0-4.8) k/uL ABG pCO2 86 H* (35-45) mmHg ABG pO2 58 L* (83-108) mmHg ABG HCO3 54 H* (21-25) mmol/L ABG Total CO2 57 H (19-24) mmol/L ABG O2 Saturation 91.8 L (94-97) % Chloride (98-107) mmol/L Carbon Dioxide (22-30) mmol/L BUN (7-17) mg/dL Creatinine (0.52-1.04) mg/dL Glucose (74-99) mg/dL POC Glucose (mg/dL) (75-99) mg/dL Phosphorus (2.5-4.5) mg/dL Microbiology - Last 24 Hours (Table) 12/12/18 07:55 Blood Culture - Preliminary Blood No Growth after 96 hours 12/15/18 11:56 Urine Culture - Preliminary Urine,Catheterized Chest x-ray: report reviewed (Dr. Burgess) Assessment and Plan Assessment: Impression: 1. Unable to maintain nutritional needs secondary to acute on chronic hypercapnic hypoxic respiratory failure secondary to advanced COPD and COPD exacerbation presently on a ventilator with tracheostomy tube. 2. History of PEG tube April 2018 subsequent removal few months ago. Plan: 1. PEG tube tentatively scheduled for tomorrow at that site. Continue supportive measures. We'll continue to follow with you. The biomaterials engineer has discussed the risks, benefits and alternative therapies for the above-mentioned procedure and for both sedation/analgesia as well as necessary blood product administration, if indicated, as they pertain to this patient. The patient has indicated understanding and acceptance of the risks and procedures discussed. Thank you for this kind referral and the opportunity to participate in the care of your patient. This consultation was discussed with Dr. Burgess. The impression and plan of care have been directed as dictated.
[2018-12-16] MEDS: SODIUM CHLORIDE 0.9% 1,000 ML IV SCH (21:11)
--- NOTE | 2018-12-16 23:36 | P.PN ---
Subjective Progress Note Date: 12/16/18 Principal diagnosis: Acute hypoxic respiratory failure This is a very pleasant 58-year-old female with a history of COPD, B/L breast cancer , had previous mastectomy and reconstruction ,s/p tracheostomy in 2018. who presents with dyspena , increased cough and yellow phlegm and sometimes blood tinged. his saturation is 95% on 40% FIO, wbc 15.7K. increased bicarb, creatinine 0.3. sugar is controlled. has pseudomonas in sputum culture and E.Coli in Urine culture . chest x-ray: chronic changes with emphysema. pt remains in the ICU and she is been followed up by pulmonary team closely. 12/16/2018 Patient is currently awake and alert but could not speak. Patient has tracheostomy. Chest x-ray showed hyperinflation. GI was consulted for PEG tube placement scheduled for tomorrow. No fever no chills. No complaints of chest pain. No worsening Shortness of breath. Patient is being continued on IV meropenem for Pseudomonas in her lungs. Pulmonary and GI is following. Current medications reviewed. Objective - Vital Signs Vital signs: Vital Signs Temp 98.6 F 12/16/18 16:00 Pulse 88 12/16/18 16:17 Resp 27 H 12/16/18 16:00 BP 145/89 12/16/18 16:00 Pulse Ox 90 L 12/16/18 16:00 Intake & Output 12/15/18 12/16/18 12/16/18 18:59 06:59 18:59 Intake Total 1208 500 550 Output Total 1305 137 315 Balance -97 363 235 Weight 50 kg 50 kg Intake: IV 810 440 300 ACETAMINOPHEN IV (For NPO 100 ) 1,000 mg In Empty Bag 1 bag @ 400 mls/hr IVPB Q6HR PRN Rx#:[id number] Meropenem 1 gm In Sodium 100 100 100 Chloride 0.9% 100 ml @ 200 mls/hr IVPB Q12HR [facility] Rx#:[id number] Sodium Chloride 0.9% 1, 460 240 200 000 ml @ 20 mls/hr IV . Q24H [facility] Rx#:[id number] Vancomycin 1,000 mg In 250 Sodium Chloride 0.9% 250 ml @ 125 mls/hr IVPB Q8HR [facility] Rx#:[id number] Intake, IV Titration 250 250 Amount Sodium Glycerophosphate 250 10 mmol In Sodium Chloride 0.9% 250 ml @ 31 .25 mls/hr IV ONCE ONE Rx #:[id number] Sodium Phosphate 10 mmol 250 In Sodium Chloride 0.9% 250 ml @ 125 mls/hr IVPB Q2H [facility] Rx#:[id number] Oral 148 60 Output: Urine 1305 137 315 Other: Voiding Method Indwelling Catheter Indwelling Catheter Indwelling Catheter - Exam GENERAL: The patient is alert and oriented x3, not in any acute distress. Well developed, well nourished. HEENT: Pupils are round and equally reacting to light. EOMI. No scleral icterus. No conjunctival pallor. Normocephalic, atraumatic. No pharyngeal erythema. No thyromegaly. CARDIOVASCULAR: S1 and S2 present. No murmurs, rubs, or gallops. -PULMONARY: Chest is clear to auscultation, scattered wheezing . no crackles. Bibasilar diminished air entry. Tracheostomy tube in place. ABDOMEN: Soft, nontender, nondistended, normoactive bowel sounds. No palpable organomegaly. MUSCULOSKELETAL: No joint swelling or deformity. EXTREMITIES: No cyanosis, clubbing, or pedal edema. NEUROLOGICAL: Gross neurological examination did not reveal any focal deficits. SKIN: No rashes. - Labs CBC & Chem 7: 12/16/18 04:21 12/16/18 04:21 Labs: Abnormal Lab Results - Last 24 Hours (Table) 12/15/18 12/16/18 12/16/18 Range/Units 17:06 04:21 04:21 Hgb 11.2 L (11.4-16.0) gm/dL MCHC 29.5 L (31.0-37.0) g/dL Lymphocytes # 0.8 L (1.0-4.8) k/uL ABG pCO2 (35-45) mmHg ABG pO2 (83-108) mmHg ABG HCO3 (21-25) mmol/L ABG Total CO2 (19-24) mmol/L ABG O2 Saturation (94-97) % Chloride 95 L (98-107) mmol/L Carbon Dioxide 48 H* (22-30) mmol/L BUN 30 H (7-17) mg/dL Creatinine 0.36 L (0.52-1.04) mg/dL Glucose 136 H (74-99) mg/dL POC Glucose (mg/dL) 125 H (75-99) mg/dL Phosphorus 1.7 L (2.5-4.5) mg/dL 12/16/18 Range/Units 05:18 Hgb (11.4-16.0) gm/dL MCHC (31.0-37.0) g/dL Lymphocytes # (1.0-4.8) k/uL ABG pCO2 86 H* (35-45) mmHg ABG pO2 58 L* (83-108) mmHg ABG HCO3 54 H* (21-25) mmol/L ABG Total CO2 57 H (19-24) mmol/L ABG O2 Saturation 91.8 L (94-97) % Chloride (98-107) mmol/L Carbon Dioxide (22-30) mmol/L BUN (7-17) mg/dL Creatinine (0.52-1.04) mg/dL Glucose (74-99) mg/dL POC Glucose (mg/dL) (75-99) mg/dL Phosphorus (2.5-4.5) mg/dL Microbiology - Last 24 Hours (Table) 12/12/18 07:55 Blood Culture - Preliminary Blood No Growth after 96 hours 12/15/18 11:56 Urine Culture - Preliminary Urine,Catheterized Assessment and Plan Assessment: acute on chronic hypoxic and hypercapnic respiratory failure secondary to COPD exacerbation. acute copd exacerbation stage IV Pseudomonas in the respiratory cultures. Possibly colonization. Currently on meropenem. s/p tracheostomy in 2018 and removal. History of PEG tube for feeding B/L breast cancer , had previous Bilateral mastectomy and reconstruction Depression leukocytosis Plan: Patient is status post tracheostomy now. Will contiue with the breathing treatment and solumedrol 40 mg, resume her home medication , continue with meropenem. we keep to monitor pt closely with vitals and labs .pulmonary team are following the pt and she remains in the ICU for now for further monitoring . heparin for DVT prophylaxis and protonix for GI prophylaxis, further recommendation will be according to the pt progress. GI was consulted for PEG tube placement. Time with Patient: Greater than 30
[2018-12-17 01:50] LABS: Glucose,Whole Blood 133 mg/dL (75-99)
[2018-12-17] MEDS: IPRATROPIUM-ALBUTEROL 3 ML NEB INHALATION SCH ×6 (02:53→23:36)
[2018-12-17 04:03] LABS: ABG Base Excess 27.7 mmol/L; ABG Oxygen Saturation 97.9 % (94-97); ABG PH 7.43 (7.35-7.45); ABG PO2 90 mmHg (83-108); ABG TCO2 55 mmol/L (19-24)
[2018-12-17 04:07] LABS: ABG HCO3 52 mmol/L (21-25); ABG PCO2 79 mmHg (35-45)
[2018-12-17 05:03] LABS: Blood Urea Nitrogen 36 mg/dL (7-17); Calcium 9.4 mg/dL (8.4-10.2); Chloride 98 mmol/L (98-107); Glucose 125 mg/dL (74-99); Magnesium 2.1 mg/dL (1.6-2.3); Phosphorus 1.9 mg/dL (2.5-4.5); Sodium 145 mmol/L (137-145)
[2018-12-17 05:04] LABS: Potassium 4.3 mmol/L (3.5-5.1)
[2018-12-17 05:10] LABS: Anion Gap -1 mmol/L
[2018-12-17 05:14] LABS: Carbon Dioxide 48 mmol/L (22-30)
[2018-12-17 05:47] LABS: Basophils % (A) 0 %; Eosinophils # (A) 0.1 k/uL (0-0.7); Eosinophils % (A) 1 %; Hypochromasia Marked; Lymphocytes # (A) 0.5 k/uL (1.0-4.8); Lymphocytes % (A) 8 %; MCH 27.9 pg (25.0-35.0); MCHC 29.6 g/dL (31.0-37.0); MCV 94.2 fL (80.0-100.0); Mean Platelet Volume 7.9; Monocytes # (A) 0.3 k/uL (0-1.0); Monocytes % (A) 5 %; Neutrophils # (A) 5.8 k/uL (1.3-7.7); Neutrophils % (A) 87 %; Platelet Count 205 k/uL (150-450); RBC 3.92 m/uL (3.80-5.40); RDW 13.7 % (11.5-15.5); WBC 6.7 k/uL (3.8-10.6)
[2018-12-17] MEDS ORDERED: Phosphorus Replacement Protoco 1 EACH MISC MISCELLANE PRN (06:04)
[2018-12-17] MEDS: methylPREDNISolone SOD SUCCI 40 MG/ML 1 ML VIAL IV SCH ×4 (06:20→23:37)
[2018-12-17 06:24] LABS: Glucose,Whole Blood 128 mg/dL (75-99)
[2018-12-17] MEDS: BUDESONIDE 1 MG/2 ML NEBU INHALATION SCH ×2 (07:25→19:54)
[2018-12-17] MEDS: FORMOTEROL FUMARATE 20 MCG/2 ML NEBU INHALATION SCH ×2 (07:25→19:53)
[2018-12-17] MEDS: LACTOBACILLUS ACIDOPH & BULGAR 1 EACH PACKET PO SCH ×3 (08:22→17:55)
[2018-12-17 09:00] LABS: ABG HCO3 48 mmol/L (21-25); ABG PCO2 111 mmHg (35-45)
[2018-12-17 09:01] LABS: ABG HCO3 53 mmol/L (21-25); ABG PCO2 109 mmHg (35-45); ABG PO2 56 mmHg (83-108)
[2018-12-17] MEDS: SODIUM PHOSPHATE 10 MMOL in SODIUM CHLORIDE 0.9% 250 ML IVPB SCH ×2 (09:03→10:48)
[2018-12-17] MEDS: MEROPENEM 1 GM in SODIUM CHLORIDE 0.9% 100 ML IVPB SCH ×2 (09:05→20:54)
[2018-12-17] MEDS: HEPARIN SODIUM,PORCINE 5,000 UNIT/ML 1 ML VIAL SQ SCH ×2 (09:05→20:54)
[2018-12-17] MEDS: CHLORHEXIDINE GLUCONATE 15 ML CUP MUCOUS MEM SCH ×2 (09:06→20:54)
[2018-12-17] MEDS: PANTOPRAZOLE 40 MG/10 ML VIAL IV SCH (09:06)
[2018-12-17 12:12] LABS: Glucose,Whole Blood 121 mg/dL (75-99)
[2018-12-17] MEDS ORDERED: ceFAZolin IN SWFI 2 GM/20 ML SYRINGE IVP ONE (15:00)
[2018-12-17] MEDS ORDERED: ceFAZolin 1,000 MG in DEXTROSE/WATER 1 50ML.BAG IVPB ONE (15:00)
[2018-12-17] MEDS ORDERED: PROPOFOL 1,000 MG in EMPTY BAG 1 BAG IV SCH (16:15)
--- NOTE | 2018-12-17 16:36 | P.PCN ---
Date of Procedure: 12/17/18 Description of Procedure: Brief history: 58-year-old female with a history of COPD admitted with acute on chronic hypercapnic hypoxic respiratory failure COPD exacerbation with tracheostomy tube placement yesterday. Patient has history of PEG tube placed April 2018 by CV surgery few months ago for nutritional support unable to wean from the vent. PEG tube was removed a few months ago. Patient is now unable to maintain her nutritional status and consult is requested for re-insertion of PEG tube. Patient being closely monitored in the ICU setting. Patient was having considerable amount of air leak on the tracheostomy tube since improved. Increased elevated peak airway pressures this morning with subsequent improvement. Weaning planned at this time. Chest x-ray shows no acute abnormalities evident hyperinflation and no evidence of pneumonia or consolidation.. Procedure performed: EGD with PEG tube placement Preoperative diagnosis: Oropharyngeal dysphagia IV sedation maintained on patient with propofol drip. Estimated blood loss: Minimal. Procedure: After informed consent was obtained with the patient as well as the family the patient was brought into the endoscopy unit. IV conscious sedation was administered by anesthesia under continuous monitoring. The Olympus GF 190 video endoscope was inserted into the mouth and esophagus intubated without any difficulty and was gradually advanced to the stomach and duodenum. The bulb and second part of the duodenum was visualized which appeared normal. The scope at this time was withdrawn to the stomach adequately insufflated with air. Adequate transillumination was achieved onto the anterior abdominal wall. At the site of adequate transillumination and maximal finger indentation, on the anterior abdominal wall, this area was sterilely prepped and draped. One percent Lidocaine was infiltrated into the skin and a small incision was made. Trocar and cannula was passed through the incision into the stomach cavity. The trocar was removed. The insertion wire was passed through the cannula into the stomach. Insertion wire was snared and then the insertion wire, snare and endoscope were withdrawn from the mouth. The insertion wire was then attached to a 20-[employer] PEG tube. The insertion wire was then pulled with the PEG tube through the incision site. PEG tube was pulled until the internal bolster was sitting snugly against the gastric mucosa which was confirmed with repeat EGD. On repeat EGD the esophagus was intubated without any difficulty and was advanced into the stomach. The internal bumper appeared to be in secure position. The visualized portions of the antrum body cardia and fundus of the stomach appeared normal. The esophagus was carefully examined as the scope was gradually being withdrawn which appeared normal. At this time external bumper was placed on the PEG tube closer to the anterior abdominal wall at 2.5 cm johnathon. The patient tolerated the procedure well. Impression: Successful 20[employer] PEG tube placement as described above. Recommendations: Findings of this examination were discussed with the patient's family. The patient will be started on tube feeds tomorrow. Post-PEG tube orders were written. Okay for medications with water flushes through PEG tube tonight at 8 PM.
--- NOTE | 2018-12-17 17:23 | P.PN ---
Subjective Progress Note Date: 12/17/18 58-year-old female patient with advanced COPD with a baseline FEV1 of less than 30% of predicted was itchy chest tube for now as the patient had a failure to wean and the past due to complications of COPD and she required a tracheostomy tube insertion for that reason. This is a Shiley tracheostomy tube in place. The patient also has a PEG tube. [facility] hospitalization and following that the patient went to a detention in [place] for further recuperation. The patient was eventually improved and she was discharged home with 2 large he ventilator that she's been using on a regular basis. The patient came back to the hospital because of worsening shortness of breath and she was diagnosed having an acute COPD exacerbation. Currently she is attached back to a mechanical ventilator. I was told that yesterday she went all day on a CPAP and she spent the night on a CPAP another this morning the patient was quite lethargic and short of breath. A repeat blood gases was done and the patient was found to be in acute on top of chronic respiratory acidosis and based on that the patient was placed back on assist control mode of ventilation with tidal volume of 325 with an FiO2 of 40% and PEEP of 5 and the rate of 16. The flow is at 40. The patient is awake and alert. Denies having any major respiratory distress while being on a mechanical ventilator. Chest x-ray shows hyperinflation. No acute pulmonary infiltration or pneumonias. She is on normal state rate of 75 mL an hour. She received a dose of Lasix yesterday as the patient was in a positive fluid balance. I still see some increased edema in the upper and lower extremities and for that reason I will order some additional dose of Lasix. No fever or chills. No chest pain. No altered mentation and she is able to answer questions appropriately without any major difficulties. On 12/16/2018 and seeing this patient for a follow-up. She is awake and alert. I did place a tracheostomy tube yesterday I inserted another Shiley trach tube #6 to improve the air leaks. The patient was having considerable amount of air leaks on the tracheostomy tube and this improved. This morning, it was noted that the patient was having elevated peak airway pressures and auto PEEP was quite high. Based on this, I And tidal volume of 350. The rate is 16. Increase the flow up to 70 and this obviously improved with her I:E ratio which is currently at 1-4. PEEP was kept at 5. The chest x-rays showing significant hyperinflation. The air entry is marked limited bilaterally with scattered expiratory wheezes throughout the lung simmons patient remains on accommodation bronchodilators and steroids. She remains on IV Merrem regarding pseudomonas in her lungs. Unable to see the patient at this point in time and she will obviously need a PEG tube insertion for nutritional support. Morning blood gases showed a pH of 7.41 with a pCO2 of 86 and pO2 of 58 with an FiO2 of 40%. White cell count is not elevated. She is arousable. She is on Klonopin and this needs to be replaced with IV Ativan for chronic anxiety. Unable to take anything orally at this point in time. On 12/17/2018, I'm seeing this patient for a follow-up. This morning, the patient is still nothing by mouth. We're going to proceed with a PEG tube insertion today. Meanwhile the patient is on a mechanical ventilator. Vent settings are essentially the same. The patient tidal volume of 350 with a rate of 16 and FiO2 of 40% and a PEEP of 5. The care of pressures around 37. Auto PEEP is at 8. This critically her pressures around 18. Blood gases from today showed a pH of 7.43 with a pCO2 of 79 and pO2 of 90. There is shotty tracheostomy tube in place. No significant air leaks around the 2. She is calm and comfortable. She is hemodynamically stable. She has no significant leukocytosis. The neck fluid balance over the past 24 hours is positive troponin 66 mL. She has an adequate urine output. She remains on IV Merrem regarding pseudomonas in her lungs. She is on IV Ativan for increased anxiety. He remains on DuoNeb nebulized seems [id number]. She is also on accommodation of Pulmicort and Perforomist nebulized treatments twice a day and she is also on IV Solu Medrol 40 mg to 8 hours. Objective - Vital Signs Vital signs: Vital Signs Temp 98.3 F 12/17/18 12:00 Pulse 71 12/17/18 16:41 Resp 16 12/17/18 16:20 BP 129/87 12/17/18 16:20 Pulse Ox 95 12/17/18 16:00 Intake & Output 0212/17/18 12/17/18 18:59 06:59 18:59 Intake Total 590 320 852.163 Output Total 420 437 785 Balance 170 -117 67.163 Weight 50 kg 49.2 kg Intake: IV 340 300 200 Meropenem 1 gm In Sodium 100 100 Chloride 0.9% 100 ml @ 200 mls/hr IVPB Q12HR [facility] Rx#:[id number] Sodium Chloride 0.9% 1, 240 200 200 000 ml @ 20 mls/hr IV . Q24H [facility] Rx#:[id number] Intake, IV Titration 250 652.163 Amount Meropenem 1 gm In Sodium 100 Chloride 0.9% 100 ml @ 200 mls/hr IVPB Q12HR [facility] Rx#:[id number] Propofol 1,000 mg In 2.163 Empty Bag 1 bag @ Titrate IV .Q0M [facility] Rx#: [id number] Sodium Phosphate 10 mmol 250 In Sodium Chloride 0.9% 250 ml @ 125 mls/hr IVPB Q2H [facility] Rx#:[id number] Sodium Phosphate 10 mmol 500 In Sodium Chloride 0.9% 250 ml @ 125 mls/hr IVPB Q2H [facility] Rx#:[id number] ceFAZolin 1,000 mg In 50 Dextrose/Water 1 50ml.bag @ 100 mls/hr IVPB ONCE ONE Rx#:[id number] Lipid 20 Sodium Chloride 0.9% 1, 20 000 ml @ 20 mls/hr IV . Q24H [facility] Rx#:[id number] Output: Urine 420 437 785 Other: Voiding Method Indwelling Catheter Indwelling Catheter Indwelling Catheter - Exam Thin and frail female patient, currently has a tracheostomy tube in place and the patient is attached a mechanical ventilator. Head exam was generally normal. There was no scleral icterus or corneal arcus. Mucous membranes were moist. Neck was supple and without jugular venous distension, thyromegaly, or carotid bruits. Carotids were easily palpable bilaterally. There was no adenopathy. The patient has a Shiley tracheostomy tube #6 cuffed but not fenestrated. Lungs are diminished bilaterally along with scattered expiratory wheezes throughout the lung simmons. The patient has bilateral breast implants. Cardiac exam revealed the PMI to be normally situated and sized. The rhythm was regular and no extrasystoles were noted during several minutes of auscultation. The first and second heart sounds were normal and physiologic splitting of the second heart sound was noted. There were no murmurs, rubs, clicks, or gallops. Abdominal exam revealed normal bowel sounds. The abdomen was soft, non-tender, and without masses, organomegaly, or appreciable enlargement of the abdominal aorta. Examination of the extremities revealed easily palpable radial, femoral and pedal pulses. There was no cyanosis, clubbing or and there is a +1 pitting edema lower extremities bilaterally. Examination of the skin revealed no evidence of significant rashes, suspicious appearing nevi or other concerning lesions. Neurologically awake and alert and there is no focal neurological deficits. - Labs CBC & Chem 7: 12/17/18 04:20 12/17/18 04:20 Labs: Abnormal Lab Results - Last 24 Hours (Table) 12/15/18 12/15/18 12/17/18 Range/Units 10:06 12:38 01:48 Hgb (11.4-16.0) gm/dL MCHC (31.0-37.0) g/dL Lymphocytes # (1.0-4.8) k/uL ABG pCO2 111 H* 109 H* (35-45) mmHg ABG pO2 56 L* (83-108) mmHg ABG HCO3 48 H* 53 H* (21-25) mmol/L ABG Total CO2 (19-24) mmol/L ABG O2 Saturation (94-97) % Carbon Dioxide (22-30) mmol/L BUN (7-17) mg/dL Creatinine (0.52-1.04) mg/dL Glucose (74-99) mg/dL POC Glucose (mg/dL) 133 H (75-99) mg/dL Phosphorus (2.5-4.5) mg/dL 12/17/18 12/17/18 12/17/18 Range/Units 03:59 04:20 04:20 Hgb 11.0 L (11.4-16.0) gm/dL MCHC 29.6 L (31.0-37.0) g/dL Lymphocytes # 0.5 L (1.0-4.8) k/uL ABG pCO2 79 H* (35-45) mmHg ABG pO2 (83-108) mmHg ABG HCO3 52 H* (21-25) mmol/L ABG Total CO2 55 H (19-24) mmol/L ABG O2 Saturation 97.9 H (94-97) % Carbon Dioxide 48 H* (22-30) mmol/L BUN 36 H (7-17) mg/dL Creatinine 0.30 L (0.52-1.04) mg/dL Glucose 125 H (74-99) mg/dL POC Glucose (mg/dL) (75-99) mg/dL Phosphorus 1.9 L (2.5-4.5) mg/dL 12/17/18 12/17/18 Range/Units 06:22 12:10 Hgb (11.4-16.0) gm/dL MCHC (31.0-37.0) g/dL Lymphocytes # (1.0-4.8) k/uL ABG pCO2 (35-45) mmHg ABG pO2 (83-108) mmHg ABG HCO3 (21-25) mmol/L ABG Total CO2 (19-24) mmol/L ABG O2 Saturation (94-97) % Carbon Dioxide (22-30) mmol/L BUN (7-17) mg/dL Creatinine (0.52-1.04) mg/dL Glucose (74-99) mg/dL POC Glucose (mg/dL) 128 H 121 H (75-99) mg/dL Phosphorus (2.5-4.5) mg/dL Microbiology - Last 24 Hours (Table) 12/12/18 07:55 Blood Culture - Preliminary Blood No Growth after 120 hours 12/15/18 11:56 Urine Culture - Final Urine,Catheterized Assessment and Plan Plan: Assessment 1 acute on chronic hypercapnic and hypoxic respiratory failure secondary to advanced COPD and COPD exacerbation. Patient is not ready for weaning. There are a PEEP remains high. Peak airway pressures are still high. The patient remains bronchus spastic and wheezy and she is air trapping. Chest x-ray shows hyperinflation. Blood gases was noted. 2 chronic hypercapnic respiratory failure 4 chronic hypoxic respiratory failure 5 and states COPD, stage IV COPD and the patient has a tracheostomy tube in place and the patient has been utilizing Trilogy ventilator overnight at home 6 NPO and the patient will need a PEG tube insertion today. 7 chronic depression 8 history of breast cancer with bilateral mastectomy 9 history of bilateral breast implants 10 days history of pneumothorax requiring chest tube insertion as well as a wedge resection of the lung and mechanical pleurodesis 11 increased lower extremity edema, recovered 12 motor weakness 13 pseudomonas in the lung probably a colonizer versus a true infection. Currently on IV Merrem. Plan Proceed with PEG tube insertion today. Continue same bronchodilators. Continue IV Solu Medrol. Continue IV Merrem. We'll need for any vent changes. ROP was improved compared to yesterday. There were pressures are improved compared to yesterday. Blood gases was noted. Chest x-ray was noted. We'll continue to follow. We'll initiate tube feeds after the PEG tube was inserted. We'll continue to follow. Condition is critical. It was his poor based on her advanced and severe COPD. She may have difficulties and weaning knowing that she has very severe COPD with chronic hypercapnic and hypoxic respiratory failure. Condition is critical. Prognosis poor. We'll continue to follow. Ventilation was done and 32 minutes. Time with Patient: Greater than 30
[2018-12-17 18:27] LABS: Glucose,Whole Blood 112 mg/dL (75-99)
[2018-12-17] MEDS: SODIUM CHLORIDE 0.9% 1,000 ML IV SCH (20:55)
--- NOTE | 2018-12-17 21:57 | P.PN ---
Subjective Progress Note Date: 12/17/18 Principal diagnosis: Acute hypoxic respiratory failure This is a very pleasant 58-year-old female with a history of COPD, B/L breast cancer , had previous mastectomy and reconstruction ,s/p tracheostomy in 2018. who presents with dyspena , increased cough and yellow phlegm and sometimes blood tinged. his saturation is 95% on 40% FIO, wbc 15.7K. increased bicarb, creatinine 0.3. sugar is controlled. has pseudomonas in sputum culture and E.Coli in Urine culture . chest x-ray: chronic changes with emphysema. pt remains in the ICU and she is been followed up by pulmonary team closely. 12/16/2018 Patient is currently awake and alert but could not speak. Patient has tracheostomy. Chest x-ray showed hyperinflation. GI was consulted for PEG tube placement scheduled for tomorrow. No fever no chills. No complaints of chest pain. No worsening Shortness of breath. Patient is being continued on IV meropenem for Pseudomonas in her lungs. Pulmonary and GI is following. 12/17/2018 Patient remained on mechanical ventilator and tracheostomy tube in place. Patient is scheduled for PEG tube placement today afternoon. Otherwise patient is awake and alert and oriented but could not communicate. Nothing by mouth. Patient is being converted on IV meropenem for Pseudomonas in the sputum cultures Patient is being continued on breathing treatments and IV Solu-Medrol. No fever no chills. No complaints of abdominal pain. Current medications reviewed. Objective - Vital Signs Vital signs: Vital Signs Temp 98.3 F 12/17/18 20:00 Pulse 77 12/17/18 21:00 Resp 16 12/17/18 21:00 BP 141/93 12/17/18 21:00 Pulse Ox 95 12/17/18 21:00 Intake & Output 12/17/18 12/17/18 12/18/18 06:59 18:59 06:59 Intake Total 320 892.163 160 Output Total 437 995 270 Balance -117 -102.837 -110 Weight 49.2 kg Intake: IV 300 240 160 Meropenem 1 gm In Sodium 100 100 Chloride 0.9% 100 ml @ 200 mls/hr IVPB Q12HR [facility] Rx#:[id number] Sodium Chloride 0.9% 1, 200 240 60 000 ml @ 20 mls/hr IV . Q24H [facility] Rx#:[id number] Intake, IV Titration 652.163 Amount Meropenem 1 gm In Sodium 100 Chloride 0.9% 100 ml @ 200 mls/hr IVPB Q12HR [facility] Rx#:[id number] Propofol 1,000 mg In 2.163 Empty Bag 1 bag @ Titrate IV .Q0M [facility] Rx#: [id number] Sodium Phosphate 10 mmol 500 In Sodium Chloride 0.9% 250 ml @ 125 mls/hr IVPB Q2H [facility] Rx#:[id number] ceFAZolin 1,000 mg In 50 Dextrose/Water 1 50ml.bag @ 100 mls/hr IVPB ONCE ONE Rx#:[id number] Lipid 20 Sodium Chloride 0.9% 1, 20 000 ml @ 20 mls/hr IV . Q24H [facility] Rx#:[id number] Output: Urine 437 995 270 Other: Voiding Method Indwelling Catheter Indwelling Catheter Indwelling Catheter - Exam GENERAL: The patient is alert and oriented x3, not in any acute distress. Well developed, well nourished. HEENT: Pupils are round and equally reacting to light. EOMI. No scleral icterus. No conjunctival pallor. Normocephalic, atraumatic. No pharyngeal erythema. No thyromegaly. CARDIOVASCULAR: S1 and S2 present. No murmurs, rubs, or gallops. -PULMONARY: Chest is clear to auscultation, scattered wheezing . no crackles. Bibasilar diminished air entry. Tracheostomy tube in place. ABDOMEN: Soft, nontender, nondistended, normoactive bowel sounds. No palpable organomegaly. MUSCULOSKELETAL: No joint swelling or deformity. EXTREMITIES: No cyanosis, clubbing, or pedal edema. NEUROLOGICAL: Gross neurological examination did not reveal any focal deficits. SKIN: No rashes. - Labs CBC & Chem 7: 12/17/18 04:20 12/17/18 04:20 Labs: Abnormal Lab Results - Last 24 Hours (Table) 12/15/18 12/15/18 12/17/18 Range/Units 10:06 12:38 01:48 Hgb (11.4-16.0) gm/dL MCHC (31.0-37.0) g/dL Lymphocytes # (1.0-4.8) k/uL ABG pCO2 111 H* 109 H* (35-45) mmHg ABG pO2 56 L* (83-108) mmHg ABG HCO3 48 H* 53 H* (21-25) mmol/L ABG Total CO2 (19-24) mmol/L ABG O2 Saturation (94-97) % Carbon Dioxide (22-30) mmol/L BUN (7-17) mg/dL Creatinine (0.52-1.04) mg/dL Glucose (74-99) mg/dL POC Glucose (mg/dL) 133 H (75-99) mg/dL Phosphorus (2.5-4.5) mg/dL 12/17/18 12/17/18 12/17/18 Range/Units 03:59 04:20 04:20 Hgb 11.0 L (11.4-16.0) gm/dL MCHC 29.6 L (31.0-37.0) g/dL Lymphocytes # 0.5 L (1.0-4.8) k/uL ABG pCO2 79 H* (35-45) mmHg ABG pO2 (83-108) mmHg ABG HCO3 52 H* (21-25) mmol/L ABG Total CO2 55 H (19-24) mmol/L ABG O2 Saturation 97.9 H (94-97) % Carbon Dioxide 48 H* (22-30) mmol/L BUN 36 H (7-17) mg/dL Creatinine 0.30 L (0.52-1.04) mg/dL Glucose 125 H (74-99) mg/dL POC Glucose (mg/dL) (75-99) mg/dL Phosphorus 1.9 L (2.5-4.5) mg/dL 12/17/18 12/17/18 12/17/18 Range/Units 06:22 12:10 18:25 Hgb (11.4-16.0) gm/dL MCHC (31.0-37.0) g/dL Lymphocytes # (1.0-4.8) k/uL ABG pCO2 (35-45) mmHg ABG pO2 (83-108) mmHg ABG HCO3 (21-25) mmol/L ABG Total CO2 (19-24) mmol/L ABG O2 Saturation (94-97) % Carbon Dioxide (22-30) mmol/L BUN (7-17) mg/dL Creatinine (0.52-1.04) mg/dL Glucose (74-99) mg/dL POC Glucose (mg/dL) 128 H 121 H 112 H (75-99) mg/dL Phosphorus (2.5-4.5) mg/dL Microbiology - Last 24 Hours (Table) 12/12/18 07:55 Blood Culture - Preliminary Blood No Growth after 120 hours 12/15/18 11:56 Urine Culture - Final Urine,Catheterized Assessment and Plan Assessment: acute on chronic hypoxic and hypercapnic respiratory failure secondary to COPD exacerbation. Status post tracheostomy acute copd exacerbation stage IV Pseudomonas in the respiratory cultures. Possibly colonization. Currently on meropenem. s/p tracheostomy in 2018 and removal. History of PEG tube for feeding B/L breast cancer , had previous Bilateral mastectomy and reconstruction Depression leukocytosis Plan: Patient is status post tracheostomy now. Will contiue with the breathing treatment and IV solumedrol 40 mg, resume her home medication , continue with meropenem. we keep to monitor pt closely with vitals and labs .pulmonary team are following the pt and she remains in the ICU for now for further monitoring . heparin for DVT prophylaxis and protonix for GI prophylaxis, further recommendation will be according to the pt progress. Patient is scheduled for PEG tube placement today afternoon.. Time with Patient: Greater than 30
[2018-12-17] MEDS: ACETAMINOPHEN IV (For NPO) 1,000 MG in EMPTY BAG 1 BAG IVPB PRN (23:28)
[2018-12-17 23:39] LABS: Glucose,Whole Blood 119 mg/dL (75-99)
[2018-12-18] MEDS: IPRATROPIUM-ALBUTEROL 3 ML NEB INHALATION SCH ×6 (03:50→23:11)
[2018-12-18 04:40] LABS: ABG Base Excess 26.6 mmol/L; ABG Oxygen Saturation 96.1 % (94-97); ABG PO2 78 mmHg (83-108); ABG TCO2 54 mmol/L (19-24)
[2018-12-18 04:41] LABS: ABG PCO2 82 mmHg (35-45)
[2018-12-18 04:42] LABS: ABG HCO3 51 mmol/L (21-25)
[2018-12-18] MEDS: methylPREDNISolone SOD SUCCI 40 MG/ML 1 ML VIAL IV SCH (06:00)
[2018-12-18 06:16] LABS: Glucose,Whole Blood 104 mg/dL (75-99)
[2018-12-18 07:20] LABS: Basophils % (A) 0 %; Eosinophils # (A) 0.1 k/uL (0-0.7); Eosinophils % (A) 1 %; HCT 36.5 % (34.0-46.0); HGB 10.8 gm/dL (11.4-16.0); Hypochromasia Marked; Lymphocytes # (A) 0.5 k/uL (1.0-4.8); Lymphocytes % (A) 6 %; MCH 27.1 pg (25.0-35.0); MCHC 29.5 g/dL (31.0-37.0); MCV 92.1 fL (80.0-100.0); Mean Platelet Volume 9.4; Monocytes # (A) 0.2 k/uL (0-1.0); Monocytes % (A) 3 %; Neutrophils # (A) 6.5 k/uL (1.3-7.7); Neutrophils % (A) 89 %; Platelet Count 204 k/uL (150-450); RBC 3.96 m/uL (3.80-5.40); RDW 13.8 % (11.5-15.5); WBC 7.2 k/uL (3.8-10.6)
[2018-12-18] MEDS: FORMOTEROL FUMARATE 20 MCG/2 ML NEBU INHALATION SCH ×2 (07:20→18:51)
[2018-12-18] MEDS: BUDESONIDE 1 MG/2 ML NEBU INHALATION SCH ×2 (07:20→18:51)
[2018-12-18 07:25] LABS: Blood Urea Nitrogen 30 mg/dL (7-17); Calcium 9.2 mg/dL (8.4-10.2); Chloride 94 mmol/L (98-107); Glucose 116 mg/dL (74-99); Potassium 4.6 mmol/L (3.5-5.1); Sodium 141 mmol/L (137-145)
--- NOTE | 2018-12-18 07:28 | XR ---
EXAMINATION TYPE: XR chest 1V portable DATE OF EXAM: 12/18/2018 COMPARISON: 12/16/2018 HISTORY: SOB, Follow Up FINDINGS: Tracheostomy tube is in place. Hyperinflation compatible with COPD. Postsurgical changes right apical region. No focal infiltrates seen. Stable appearance of the cardio-mediastinal structures at this time. IMPRESSION: 1. Stable portable chest. Clinical correlation and follow up until resolution is recommended.
[2018-12-18 07:31] LABS: Anion Gap 3 mmol/L
[2018-12-18 07:52] LABS: Carbon Dioxide 44 mmol/L (22-30)
[2018-12-18] MEDS: HEPARIN SODIUM,PORCINE 5,000 UNIT/ML 1 ML VIAL SQ SCH ×2 (09:06→20:35)
[2018-12-18] MEDS: CHLORHEXIDINE GLUCONATE 15 ML CUP MUCOUS MEM SCH ×2 (09:06→20:35)
[2018-12-18] MEDS: PANTOPRAZOLE 40 MG/10 ML VIAL IV SCH (09:06)
[2018-12-18] MEDS: LACTOBACILLUS ACIDOPH & BULGAR 1 EACH PACKET PO SCH ×3 (09:06→18:37)
[2018-12-18] MEDS: MEROPENEM 1 GM in SODIUM CHLORIDE 0.9% 100 ML IVPB SCH ×2 (09:32→20:35)
--- NOTE | 2018-12-18 09:54 | P.PN ---
Subjective Progress Note Date: 12/18/18 58-year-old female patient with advanced COPD with a baseline FEV1 of less than 30% of predicted was itchy chest tube for now as the patient had a failure to wean and the past due to complications of COPD and she required a tracheostomy tube insertion for that reason. This is a Shiley tracheostomy tube in place. The patient also has a PEG tube. The patient was [facility] to [facility] during an earlier hospitalization and following that the patient went to a shelter in [place] for further recuperation. The patient was eventually improved and she was discharged home with 2 large he ventilator that she's been using on a regular basis. The patient came back to the hospital because of worsening shortness of breath and she was diagnosed having an acute COPD exacerbation. Currently she is attached back to a mechanical ventilator. I was told that yesterday she went all day on a CPAP and she spent the night on a CPAP another this morning the patient was quite lethargic and short of breath. A repeat blood gases was done and the patient was found to be in acute on top of chronic respiratory acidosis and based on that the patient was placed back on assist control mode of ventilation with tidal volume of 325 with an FiO2 of 40% and PEEP of 5 and the rate of 16. The flow is at 40. The patient is awake and alert. Denies having any major respiratory distress while being on a mechanical ventilator. Chest x-ray shows hyperinflation. No acute pulmonary infiltration or pneumonias. She is on normal state rate of 75 mL an hour. She received a dose of Lasix yesterday as the patient was in a positive fluid balance. I still see some increased edema in the upper and lower extremities and for that reason I will order some additional dose of Lasix. No fever or chills. No chest pain. No altered mentation and she is able to answer questions appropriately without any major difficulties. On 12/16/2018 and seeing this patient for a follow-up. She is awake and alert. I did place a tracheostomy tube yesterday I inserted another Shiley trach tube #6 to improve the air leaks. The patient was having considerable amount of air leaks on the tracheostomy tube and this improved. This morning, it was noted that the patient was having elevated peak airway pressures and auto PEEP was quite high. Based on this, I And tidal volume of 350. The rate is 16. Increase the flow up to 70 and this obviously improved with her I:E ratio which is currently at 1-4. PEEP was kept at 5. The chest x-rays showing significant hyperinflation. The air entry is marked limited bilaterally with scattered expiratory wheezes throughout the lung simmons patient remains on accommodation bronchodilators and steroids. She remains on IV Merrem regarding pseudomonas in her lungs. Unable to see the patient at this point in time and she will obviously need a PEG tube insertion for nutritional support. Morning blood gases showed a pH of 7.41 with a pCO2 of 86 and pO2 of 58 with an FiO2 of 40%. White cell count is not elevated. She is arousable. She is on Klonopin and this needs to be replaced with IV Ativan for chronic anxiety. Unable to take anything orally at this point in time. On 12/17/2018, I'm seeing this patient for a follow-up. This morning, the patient is still nothing by mouth. We're going to proceed with a PEG tube insertion today. Meanwhile the patient is on a mechanical ventilator. Vent settings are essentially the same. The patient tidal volume of 350 with a rate of 16 and FiO2 of 40% and a PEEP of 5. The care of pressures around 37. Auto PEEP is at 8. This critically her pressures around 18. Blood gases from today showed a pH of 7.43 with a pCO2 of 79 and pO2 of 90. There is shotty tracheostomy tube in place. No significant air leaks around the 2. She is calm and comfortable. She is hemodynamically stable. She has no significant leukocytosis. The neck fluid balance over the past 24 hours is positive troponin 66 mL. She has an adequate urine output. She remains on IV Merrem regarding pseudomonas in her lungs. She is on IV Ativan for increased anxiety. He remains on DuoNeb nebulized seems [id number]. She is also on accommodation of Pulmicort and Perforomist nebulized treatments twice a day and she is also on IV Solu Medrol 40 mg to 8 hours. On 12/18/2018, I'm seeing this patient for a follow-up. The patient is awake and alert. The patient underwent a successful PEG tube insertion yesterday and the patient will be started on tube feeds today. She has been very calm and comfortable. She is suggest a mechanical ventilator. This morning, I switched this patient to a pressure support of 8 and PEEP of 5. She was able to tolerate this switch without any major difficulties. Her tidal volumes above 350 while being on the pressure support mode of ventilation. She maintain an adequate oxygenation. She is calm and comfortable her respiratory rate is below 25. No fever. No chills. No respiratory secretions. She is a negative fluid balance. We will start tube feeds today. Her blood gases from this morning showed a pH of 7.4 with a pCO2 of 82 and pO2 of 78. She is not anxious. She is developing some motor weakness special with prolonged vent dependence and hospital stay. White cell count is at 7.2. He was stable at 10.8. No other significant events over the past 24 hours. She remains on IV Solu-Medrol that needs to be transitioned to oral prednisone. She is also on IV Merrem. Objective - Vital Signs Vital signs: Vital Signs Temp 98.2 F 12/18/18 08:00 Pulse 78 12/18/18 09:00 Resp 16 12/18/18 09:00 BP 153/92 12/18/18 09:00 Pulse Ox 97 12/18/18 09:00 Intake & Output 12/17/18 12/18/18 12/18/18 18:59 06:59 18:59 Intake Total 892.163 440 60 Output Total 995 755 164 Balance -102.837 -315 -104 Weight 50 kg Intake: IV 240 440 60 ACETAMINOPHEN IV (For NPO 100 ) 1,000 mg In Empty Bag 1 bag @ 400 mls/hr IVPB Q6HR [facility] Rx#:[id number] Meropenem 1 gm In Sodium 100 Chloride 0.9% 100 ml @ 200 mls/hr IVPB Q12HR [facility] Rx#:[id number] Sodium Chloride 0.9% 1, 240 240 60 000 ml @ 20 mls/hr IV . Q24H [facility] Rx#:[id number] Intake, IV Titration 652.163 Amount Meropenem 1 gm In Sodium 100 Chloride 0.9% 100 ml @ 200 mls/hr IVPB Q12HR [facility] Rx#:[id number] Propofol 1,000 mg In 2.163 Empty Bag 1 bag @ Titrate IV .Q0M [facility] Rx#: [id number] Sodium Phosphate 10 mmol 500 In Sodium Chloride 0.9% 250 ml @ 125 mls/hr IVPB Q2H [facility] Rx#:[id number] ceFAZolin 1,000 mg In 50 Dextrose/Water 1 50ml.bag @ 100 mls/hr IVPB ONCE ONE Rx#:[id number] Output: Urine 995 755 164 Other: Voiding Method Indwelling Catheter Indwelling Catheter Indwelling Catheter - Exam Thin and frail female patient, currently has a tracheostomy tube in place and the patient is attached a mechanical ventilator. Head exam was generally normal. There was no scleral icterus or corneal arcus. Mucous membranes were moist. Neck was supple and without jugular venous distension, thyromegaly, or carotid bruits. Carotids were easily palpable bilaterally. There was no adenopathy. The patient has a Shiley tracheostomy tube #6 cuffed but not fenestrated. Lungs are diminished bilaterally along with scattered expiratory wheezes throughout the lung simmons. The patient has bilateral breast implants. Cardiac exam revealed the PMI to be normally situated and sized. The rhythm was regular and no extrasystoles were noted during several minutes of auscultation. The first and second heart sounds were normal and physiologic splitting of the second heart sound was noted. There were no murmurs, rubs, clicks, or gallops. Abdominal exam revealed normal bowel sounds. The abdomen was soft, non-tender, and without masses, organomegaly, or appreciable enlargement of the abdominal aorta. The PEG tube site is dry clean and intact Examination of the extremities revealed easily palpable radial, femoral and pedal pulses. There was no cyanosis, clubbing or and there is a +1 pitting edema lower extremities bilaterally. Examination of the skin revealed no evidence of significant rashes, suspicious appearing nevi or other concerning lesions. Neurologically awake and alert and there is no focal neurological deficits. - Labs CBC & Chem 7: 12/18/18 05:43 12/18/18 05:43 Labs: Abnormal Lab Results - Last 24 Hours (Table) 12/17/18 12/17/18 12/17/18 Range/Units 12:10 18:25 23:37 Hgb (11.4-16.0) gm/dL MCHC (31.0-37.0) g/dL Lymphocytes # (1.0-4.8) k/uL ABG pCO2 (35-45) mmHg ABG pO2 (83-108) mmHg ABG HCO3 (21-25) mmol/L ABG Total CO2 (19-24) mmol/L Chloride (98-107) mmol/L Carbon Dioxide (22-30) mmol/L BUN (7-17) mg/dL Creatinine (0.52-1.04) mg/dL Glucose (74-99) mg/dL POC Glucose (mg/dL) 121 H 112 H 119 H (75-99) mg/dL 12/18/18 12/18/18 12/18/18 Range/Units 04:35 05:43 05:43 Hgb 10.8 L (11.4-16.0) gm/dL MCHC 29.5 L (31.0-37.0) g/dL Lymphocytes # 0.5 L (1.0-4.8) k/uL ABG pCO2 82 H* (35-45) mmHg ABG pO2 78 L (83-108) mmHg ABG HCO3 51 H* (21-25) mmol/L ABG Total CO2 54 H (19-24) mmol/L Chloride 94 L (98-107) mmol/L Carbon Dioxide 44 H* (22-30) mmol/L BUN 30 H (7-17) mg/dL Creatinine 0.33 L (0.52-1.04) mg/dL Glucose 116 H (74-99) mg/dL POC Glucose (mg/dL) (75-99) mg/dL 12/18/18 Range/Units 06:14 Hgb (11.4-16.0) gm/dL MCHC (31.0-37.0) g/dL Lymphocytes # (1.0-4.8) k/uL ABG pCO2 (35-45) mmHg ABG pO2 (83-108) mmHg ABG HCO3 (21-25) mmol/L ABG Total CO2 (19-24) mmol/L Chloride (98-107) mmol/L Carbon Dioxide (22-30) mmol/L BUN (7-17) mg/dL Creatinine (0.52-1.04) mg/dL Glucose (74-99) mg/dL POC Glucose (mg/dL) 104 H (75-99) mg/dL Microbiology - Last 24 Hours (Table) 12/12/18 07:55 Blood Culture - Preliminary Blood No Growth after 120 hours Assessment and Plan Plan: Assessment 1 acute on chronic hypercapnic and hypoxic respiratory failure secondary to advanced COPD and COPD exacerbation. The blood gas shows a compensated respiratory acidosis. The patient will be switched to a pressure support mode of ventilation. With a pressure support of 8 and PEEP of 5 with an FiO2 of 40% . The patient was able to tolerate this morning without any major difficulties. We'll keep her on a pressure support mode for now. This continued IV Solu-Medrol and switch this patient to oral prednisone as part of the burst taper. Continue the rest of the bronchodilators. 2 chronic hypercapnic respiratory failure 4 chronic hypoxic respiratory failure 5 and states COPD, stage IV COPD and the patient has a tracheostomy tube in place and the patient has been utilizing Trilogy ventilator overnight at home 6 NPO and the PEG tube was reinserted yesterday. 7 chronic depression 8 history of breast cancer with bilateral mastectomy 9 history of bilateral breast implants 10 days history of pneumothorax requiring chest tube insertion as well as a wedge resection of the lung and mechanical pleurodesis 11 increased lower extremity edema, recovered 12 motor weakness 13 pseudomonas in the lung probably a colonizer versus a true infection. Currently on IV Merrem. Plan Consult dietary and get advice regarding the tube feeds. PEG tube was inserted yesterday and the patient will be started on enteral feeding for nutritional support. Continue pressure support mode of ventilation for a few hours today and monitor progress. Chest x-ray stable. Blood gases was noted and the findings are stable. This continued IV Solu Medrol start the patient prednisone burst taper. We'll continue to follow. May suggest a select specialty transfer to later stage.
--- NOTE | 2018-12-18 11:40 | P.PN ---
Subjective Progress Note Date: 12/18/18 Arterial female with a history of COPD status post trach and previous PEG tube presents to the hospital with dyspnea and increased cough and yellowish phlegm which is blood-tinged. She is been in the ICU and has been managed ICU. Her urine cultures showed E. coli and her sputum cultures for Pseudomonas. She is on meropenem. She had a PEG tube placed yesterday. Pulmonology has been following her very closely Today she is on mechanical ventilator to the tracheostomy tube. She feels that her shortness of breath is better, no cough. She has no pain at the site of the PEG tube but there was dry blood around the PEG tube placement site Objective - Vital Signs Vital signs: Vital Signs Temp 98.2 F 12/18/18 08:00 Pulse 89 12/18/18 11:23 Resp 16 12/18/18 09:00 BP 153/92 12/18/18 09:00 Pulse Ox 97 12/18/18 09:00 Intake & Output 12/17/18 12/18/18 12/18/18 18:59 06:59 18:59 Intake Total 892.163 440 60 Output Total 995 755 164 Balance -102.837 -315 -104 Weight 50 kg 50 kg Intake: IV 240 440 60 ACETAMINOPHEN IV (For NPO 100 ) 1,000 mg In Empty Bag 1 bag @ 400 mls/hr IVPB Q6HR [facility] Rx#:[id number] Meropenem 1 gm In Sodium 100 Chloride 0.9% 100 ml @ 200 mls/hr IVPB Q12HR [facility] Rx#:[id number] Sodium Chloride 0.9% 1, 240 240 60 000 ml @ 20 mls/hr IV . Q24H [facility] Rx#:[id number] Intake, IV Titration 652.163 Amount Meropenem 1 gm In Sodium 100 Chloride 0.9% 100 ml @ 200 mls/hr IVPB Q12HR [facility] Rx#:[id number] Propofol 1,000 mg In 2.163 Empty Bag 1 bag @ Titrate IV .Q0M [facility] Rx#: [id number] Sodium Phosphate 10 mmol 500 In Sodium Chloride 0.9% 250 ml @ 125 mls/hr IVPB Q2H [facility] Rx#:[id number] ceFAZolin 1,000 mg In 50 Dextrose/Water 1 50ml.bag @ 100 mls/hr IVPB [facility] Rx#:[id number] Output: Urine 995 755 164 Other: Voiding Method Indwelling Catheter Indwelling Catheter Indwelling Catheter - Exam On exam, alert and oriented x3. HEENT: Conjunctivae normal. eyes normal. NECK: No JVD. No thyroid enlargement. No LNs has trach CARDIOVASCULAR: S1, S2 muffled. No murmur RESPIRATION: Breath sounds diminished in the bases. Breath sounds were coarse and was having wheezing today ABDOMEN: Soft, nontender . No guarding. no masses palpable. No ascites, No hepatosplenomegaly.Bowel sounds heard. Has PEG tube LEGS: No edema. no swelling NERVOUS SYSTEM: Cranial N 2-12 grossly normal. Moves all 4 limbs. No focal deficits. No sensory deficit. No signs of cerebellar dysfucntion. Skin: no ulcer no rash Joints: No active swelling. No inflammation. Lymphatic system. No LN neck axilla or groin. - Labs CBC & Chem 7: 12/18/18 05:43 12/18/18 05:43 Labs: Abnormal Lab Results - Last 24 Hours (Table) 12/17/18 12/17/18 12/17/18 Range/Units 12:10 18:25 23:37 Hgb (11.4-16.0) gm/dL MCHC (31.0-37.0) g/dL Lymphocytes # (1.0-4.8) k/uL ABG pCO2 (35-45) mmHg ABG pO2 (83-108) mmHg ABG HCO3 (21-25) mmol/L ABG Total CO2 (19-24) mmol/L Chloride (98-107) mmol/L Carbon Dioxide (22-30) mmol/L BUN (7-17) mg/dL Creatinine (0.52-1.04) mg/dL Glucose (74-99) mg/dL POC Glucose (mg/dL) 121 H 112 H 119 H (75-99) mg/dL 12/18/18 12/18/18 12/18/18 Range/Units 04:35 05:43 05:43 Hgb 10.8 L (11.4-16.0) gm/dL MCHC 29.5 L (31.0-37.0) g/dL Lymphocytes # 0.5 L (1.0-4.8) k/uL ABG pCO2 82 H* (35-45) mmHg ABG pO2 78 L (83-108) mmHg ABG HCO3 51 H* (21-25) mmol/L ABG Total CO2 54 H (19-24) mmol/L Chloride 94 L (98-107) mmol/L Carbon Dioxide 44 H* (22-30) mmol/L BUN 30 H (7-17) mg/dL Creatinine 0.33 L (0.52-1.04) mg/dL Glucose 116 H (74-99) mg/dL POC Glucose (mg/dL) (75-99) mg/dL 12/18/18 Range/Units 06:14 Hgb (11.4-16.0) gm/dL MCHC (31.0-37.0) g/dL Lymphocytes # (1.0-4.8) k/uL ABG pCO2 (35-45) mmHg ABG pO2 (83-108) mmHg ABG HCO3 (21-25) mmol/L ABG Total CO2 (19-24) mmol/L Chloride (98-107) mmol/L Carbon Dioxide (22-30) mmol/L BUN (7-17) mg/dL Creatinine (0.52-1.04) mg/dL Glucose (74-99) mg/dL POC Glucose (mg/dL) 104 H (75-99) mg/dL Microbiology - Last 24 Hours (Table) 12/12/18 07:55 Blood Culture - Final Blood No Growth after 144 hours Assessment and Plan Assessment: - Respiratory failure secondary to COPD exacerbation and pneumonia - Status post PEG tube - History of depression - History of breast cancer Plan - Continue to monitor in the ICU - She is on mechanical ventilation through tracheostomy tube - PEG tube was placed yesterday. To resume PEG tube feeding today if okay with GI - Continue antibiotics - Continue rest of the respiratory ICU - We'll continue to monitor the patient Time with Patient: Greater than 30
[2018-12-18 11:48] LABS: Glucose,Whole Blood 119 mg/dL (75-99)
--- NOTE | 2018-12-18 11:49 | P.PN ---
Subjective Progress Note Date: 12/18/18 Principal diagnosis: Unable to meet nutritional needs acute respiratory failure Status post PEG tube insertion. No abdominal complaints. Afebrile. Hemoglobin 10.8. White count 7.2. Objective - Vital Signs Vital signs: Vital Signs Temp 98.2 F 12/18/18 08:00 Pulse 87 12/18/18 11:40 Resp 22 12/18/18 11:00 BP 147/91 12/18/18 11:00 Pulse Ox 95 12/18/18 11:00 Intake & Output 12/17/18 12/18/18 12/18/18 18:59 06:59 18:59 Intake Total 892.163 440 80 Output Total 995 755 244 Balance -102.837 -315 -164 Weight 50 kg 50 kg Intake: IV 240 440 80 ACETAMINOPHEN IV (For NPO 100 ) 1,000 mg In Empty Bag 1 bag @ 400 mls/hr IVPB Q6HR PRN Rx#:[id number] Meropenem 1 gm In Sodium 100 Chloride 0.9% 100 ml @ 200 mls/hr IVPB Q12HR [facility] Rx#:[id number] Sodium Chloride 0.9% 1, 240 240 80 000 ml @ 20 mls/hr IV . Q24H [facility] Rx#:[id number] Intake, IV Titration 652.163 Amount Meropenem 1 gm In Sodium 100 Chloride 0.9% 100 ml @ 200 mls/hr IVPB Q12HR [facility] Rx#:[id number] Propofol 1,000 mg In 2.163 Empty Bag 1 bag @ Titrate IV .Q0M [facility] Rx#: [id number] Sodium Phosphate 10 mmol 500 In Sodium Chloride 0.9% 250 ml @ 125 mls/hr IVPB Q2H [facility] Rx#:[id number] ceFAZolin 1,000 mg In 50 Dextrose/Water 1 50ml.bag @ 100 mls/hr IVPB ONCE ONE Rx#:[id number] Output: Urine 995 755 244 Other: Voiding Method Indwelling Catheter Indwelling Catheter Indwelling Catheter - Exam General appearance: The patient is alert, in no acute distress. Unable to speak tracheostomy presently on a ventilator. HET: Head is normocephalic and atraumatic. Pupils are equal and reactive. Oropharynx is clear without lesions. Neck: Supple without lymphadenopathy. Trachea midline. Heart: S1 S2. Regular rate and rhythm. Lungs: No diminished bilaterally. Abdomen: Soft, nontender, nondistended with bowel sounds PEG tube intact without erythema or hematoma. No peritoneal signs. No palpable organomegaly or masses. Extremities: Normal skin color and turgor. No cyanosis, rash, ulceration, clubbing, or edema. Radial and pedal pulses are 2/4 bilaterally. Neurological: No focal deficits. Strength and sensation are grossly intact. - Labs CBC & Chem 7: 12/18/18 05:43 12/18/18 05:43 Labs: Abnormal Lab Results - Last 24 Hours (Table) 12/17/18 12/17/18 12/17/18 Range/Units 12:10 18:25 23:37 Hgb (11.4-16.0) gm/dL MCHC (31.0-37.0) g/dL Lymphocytes # (1.0-4.8) k/uL ABG pCO2 (35-45) mmHg ABG pO2 (83-108) mmHg ABG HCO3 (21-25) mmol/L ABG Total CO2 (19-24) mmol/L Chloride (98-107) mmol/L Carbon Dioxide (22-30) mmol/L BUN (7-17) mg/dL Creatinine (0.52-1.04) mg/dL Glucose (74-99) mg/dL POC Glucose (mg/dL) 121 H 112 H 119 H (75-99) mg/dL 12/18/18 12/18/18 12/18/18 Range/Units 04:35 05:43 05:43 Hgb 10.8 L (11.4-16.0) gm/dL MCHC 29.5 L (31.0-37.0) g/dL Lymphocytes # 0.5 L (1.0-4.8) k/uL ABG pCO2 82 H* (35-45) mmHg ABG pO2 78 L (83-108) mmHg ABG HCO3 51 H* (21-25) mmol/L ABG Total CO2 54 H (19-24) mmol/L Chloride 94 L (98-107) mmol/L Carbon Dioxide 44 H* (22-30) mmol/L BUN 30 H (7-17) mg/dL Creatinine 0.33 L (0.52-1.04) mg/dL Glucose 116 H (74-99) mg/dL POC Glucose (mg/dL) (75-99) mg/dL 12/18/18 Range/Units 06:14 Hgb (11.4-16.0) gm/dL MCHC (31.0-37.0) g/dL Lymphocytes # (1.0-4.8) k/uL ABG pCO2 (35-45) mmHg ABG pO2 (83-108) mmHg ABG HCO3 (21-25) mmol/L ABG Total CO2 (19-24) mmol/L Chloride (98-107) mmol/L Carbon Dioxide (22-30) mmol/L BUN (7-17) mg/dL Creatinine (0.52-1.04) mg/dL Glucose (74-99) mg/dL POC Glucose (mg/dL) 104 H (75-99) mg/dL Microbiology - Last 24 Hours (Table) 12/12/18 07:55 Blood Culture - Final Blood No Growth after 144 hours Assessment and Plan Assessment: Impression: 1. Unable to maintain nutritional needs secondary to acute on chronic hypercapnic hypoxic respiratory failure secondary to advanced COPD and COPD exacerbation presently on a ventilator with tracheostomy tube status post PEG tube placement. 2. History of PEG tube April 2018 subsequent removal few months ago. Plan: 1. May use PEG for tube feeds and medications. Continue supportive measures. We'll follow as needed. Assessment and plan a care discussed with Dr. Burgess
[2018-12-18] MEDS: predniSONE 20 MG TAB PO SCH (12:27)
[2018-12-18] MEDS: LORazepam 2 MG/ML INJ IV PRN (15:56)
[2018-12-18 18:36] LABS: Glucose,Whole Blood 112 mg/dL (75-99)
[2018-12-18 23:20] LABS: Glucose,Whole Blood 88 mg/dL (75-99)
[2018-12-19] MEDS: IPRATROPIUM-ALBUTEROL 3 ML NEB INHALATION SCH ×6 (03:12→23:00)
[2018-12-19 04:28] LABS: ABG Oxygen Saturation 97.7 % (94-97); ABG PH 7.45 (7.35-7.45); ABG PO2 87 mmHg (83-108); ABG TCO2 53 mmol/L (19-24)
[2018-12-19 04:33] LABS: ABG HCO3 51 mmol/L (21-25); ABG PCO2 73 mmHg (35-45)
[2018-12-19 06:02] LABS: HCT 35.8 % (34.0-46.0); HGB 10.9 gm/dL (11.4-16.0); Hypochromasia Moderate; MCH 27.6 pg (25.0-35.0); MCHC 30.3 g/dL (31.0-37.0); MCV 91.2 fL (80.0-100.0); Mean Platelet Volume 9.3; Platelet Count 178 k/uL (150-450); RBC 3.93 m/uL (3.80-5.40); RDW 13.9 % (11.5-15.5); WBC 8.5 k/uL (3.8-10.6)
[2018-12-19 06:15] LABS: Glucose,Whole Blood 94 mg/dL (75-99)
[2018-12-19 06:19] LABS: Blood Urea Nitrogen 25 mg/dL (7-17); Calcium 9.1 mg/dL (8.4-10.2); Chloride 92 mmol/L (98-107); Glucose 85 mg/dL (74-99); Magnesium 1.9 mg/dL (1.6-2.3); Phosphorus 2.3 mg/dL (2.5-4.5); Potassium 4.2 mmol/L (3.5-5.1); Sodium 136 mmol/L (137-145)
[2018-12-19 06:25] LABS: Anion Gap 2 mmol/L
[2018-12-19 06:29] LABS: Carbon Dioxide 42 mmol/L (22-30)
[2018-12-19] MEDS: MAGNESIUM SULFATE-D5W PMX 1 GM in DEXTROSE/WATER 1 100ML.BAG IVPB SCH ×2 (07:15→09:28)
[2018-12-19] MEDS: FORMOTEROL FUMARATE 20 MCG/2 ML NEBU INHALATION SCH ×2 (07:17→19:09)
[2018-12-19] MEDS: BUDESONIDE 1 MG/2 ML NEBU INHALATION SCH ×2 (07:17→19:09)
[2018-12-19] MEDS ORDERED: SODIUM PHOSPHATE 10 MMOL in SODIUM CHLORIDE 0.9% 250 ML IVPB ONE (08:00)
[2018-12-19] MEDS: MEROPENEM 1 GM in SODIUM CHLORIDE 0.9% 100 ML IVPB SCH ×2 (09:29→21:04)
[2018-12-19] MEDS: CHLORHEXIDINE GLUCONATE 15 ML CUP MUCOUS MEM SCH ×2 (09:36→21:04)
[2018-12-19] MEDS: PANTOPRAZOLE 40 MG/10 ML VIAL IV SCH (09:36)
[2018-12-19] MEDS: predniSONE 20 MG TAB PO SCH (09:36)
[2018-12-19] MEDS: HEPARIN SODIUM,PORCINE 5,000 UNIT/ML 1 ML VIAL SQ SCH ×2 (09:36→21:04)
[2018-12-19] MEDS: LACTOBACILLUS ACIDOPH & BULGAR 1 EACH PACKET PO SCH ×3 (09:36→17:21)
--- NOTE | 2018-12-19 10:04 | P.PN ---
Subjective Progress Note Date: 12/19/18 Principal diagnosis: Acute on chronic hypercapnic and hypoxic respiratory failure secondary to advanced COPD and COPD exacerbation. 58-year-old female patient with advanced COPD with a baseline FEV1 of less than 30% of predicted was itchy chest tube for now as the patient had a failure to wean and the past due to complications of COPD and she required a tracheostomy tube insertion for that reason. This is a Shiley tracheostomy tube in place. The patient also has a PEG tube. The [facility] during an earlier hospitalization and following that the patient went to a care home in [place] for further recuperation. The patient was eventually improved and she was discharged home with 2 large he ventilator that she's been using on a regular basis. The patient came back to the hospital because of worsening shortness of breath and she was diagnosed having an acute COPD exacerbation. Currently she is attached back to a mechanical ventilator. I was told that yesterday she went all day on a CPAP and she spent the night on a CPAP another this morning the patient was quite lethargic and short of breath. A repeat blood gases was done and the patient was found to be in acute on top of chronic respiratory acidosis and based on that the patient was placed back on assist control mode of ventilation with tidal volume of 325 with an FiO2 of 40% and PEEP of 5 and the rate of 16. The flow is at 40. The patient is awake and alert. Denies having any major respiratory distress while being on a mechanical ventilator. Chest x-ray shows hyperinflation. No acute pulmonary infiltration or pneumonias. She is on normal state rate of 75 mL an hour. She received a dose of Lasix yesterday as the patient was in a positive fluid balance. I still see some increased edema in the upper and lower extremities and for that reason I will order some additional dose of Lasix. No fever or chills. No chest pain. No altered mentation and she is able to answer questions appropriately without any major difficulties. On 12/16/2018 and seeing this patient for a follow-up. She is awake and alert. I did place a tracheostomy tube yesterday I inserted another Shiley trach tube #6 to improve the air leaks. The patient was having considerable amount of air leaks on the tracheostomy tube and this improved. This morning, it was noted that the patient was having elevated peak airway pressures and auto PEEP was quite high. Based on this, I And tidal volume of 350. The rate is 16. Increase the flow up to 70 and this obviously improved with her I:E ratio which is currently at 1-4. PEEP was kept at 5. The chest x-rays showing significant hyperinflation. The air entry is marked limited bilaterally with scattered expiratory wheezes throughout the lung simmons patient remains on accommodation bronchodilators and steroids. She remains on IV Merrem regarding pseudomonas in her lungs. Unable to see the patient at this point in time and she will obviously need a PEG tube insertion for nutritional support. Morning blood gases showed a pH of 7.41 with a pCO2 of 86 and pO2 of 58 with an FiO2 of 40%. White cell count is not elevated. She is arousable. She is on Klonopin and this needs to be replaced with IV Ativan for chronic anxiety. Unable to take anything orally at this point in time. On 12/17/2018, I'm seeing this patient for a follow-up. This morning, the patient is still nothing by mouth. We're going to proceed with a PEG tube insertion today. Meanwhile the patient is on a mechanical ventilator. Vent settings are essentially the same. The patient tidal volume of 350 with a rate of 16 and FiO2 of 40% and a PEEP of 5. The care of pressures around 37. Auto PEEP is at 8. This critically her pressures around 18. Blood gases from today showed a pH of 7.43 with a pCO2 of 79 and pO2 of 90. There is shotty tracheostomy tube in place. No significant air leaks around the 2. She is calm and comfortable. She is hemodynamically stable. She has no significant leukocytosis. The neck fluid balance over the past 24 hours is positive troponin 66 mL. She has an adequate urine output. She remains on IV Merrem regarding pseudomonas in her lungs. She is on IV Ativan for increased anxiety. He remains on DuoNeb nebulized seems [id number]. She is also on accommodation of Pulmicort and Perforomist nebulized treatments twice a day and she is also on IV Solu Medrol 40 mg to 8 hours. On 12/18/2018, I'm seeing this patient for a follow-up. The patient is awake and alert. The patient underwent a successful PEG tube insertion yesterday and the patient will be started on tube feeds today. She has been very calm and comfortable. She is suggest a mechanical ventilator. This morning, I switched this patient to a pressure support of 8 and PEEP of 5. She was able to tolerate this switch without any major difficulties. Her tidal volumes above 350 while being on the pressure support mode of ventilation. She maintain an adequate oxygenation. She is calm and comfortable her respiratory rate is below 25. No fever. No chills. No respiratory secretions. She is a negative fluid balance. We will start tube feeds today. Her blood gases from this morning showed a pH of 7.4 with a pCO2 of 82 and pO2 of 78. She is not anxious. She is developing some motor weakness special with prolonged vent dependence and hospital stay. White cell count is at 7.2. He was stable at 10.8. No other significant events over the past 24 hours. She remains on IV Solu-Medrol that needs to be transitioned to oral prednisone. She is also on IV Merrem. On 12/19/2018 patient seen in follow-up in the intensive care unit, she is resting comfortably in bed, she is sleeping, but arousable, mentation is appropriate. Denies any acute distress, patient did have pressure support trials yesterday, with pressure-support of 12 and CPAP of 5, in the morning for 12 minutes, and for 4-1/2 hours in the evening. Tolerated spontaneous breathing trials in the evening rather well. Patient had a PEG tube placed, she is receiving tube feedings through the PEG tube, Jevity at 20 ML per hour. Lung sounds are clear to auscultation. No new chest x-ray today, blood work today shows white blood cell count of 8.5, hemoglobin of 10.9, serum sodium is 136, potassium is 4.2, chloride is 92, CO2 is 42, BUN is 25 and creatinine 0.26. This morning's blood gas showed a pO2 of 87, pCO2 of 73, and pH of 7.45, consistent with chronic hypercapnic respiratory failure with metabolic compensation. Vital signs are stable, no fever or chills, currently patient is on assist-control mode of ventilation, with a rate of 12, tidal vital 300, FiO2 of 40% and PEEP of 5. This morning we will place her back on pressure-support trials, with pressure-support of 10, and CPAP of 5. Culture data has been reviewed, patient did have pseudomonas aeruginosa in her sputum this admission which was reich susceptible. And Staph epidermidis in the urine, likely contaminated, ill-appearing culture showed no growth. Current antibiotic coverage in the form of meropenem, patient is on nebulized bronchodilators, Pulmicort, Perforomist, and oral steroids. She is calm and comfortable, no specific complaints. Referral process has been started for transfer to [facility] specialty facility. Patient can be transferred to [facility] specialty once arrangements are completed Objective - Vital Signs Vital signs: Vital Signs Temp 98.3 F 12/19/18 04:00 Pulse 68 12/19/18 07:40 Resp 19 12/19/18 07:00 BP 110/80 12/19/18 07:00 Pulse Ox 96 12/19/18 05:00 Intake & Output 12/18/18 12/19/18 12/19/18 18:59 06:59 18:59 Intake Total 320 580 Output Total 799 1400 Balance -479 -820 Weight 44.9 kg 46.1 kg Intake: IV 220 330 Meropenem 1 gm In Sodium 100 Chloride 0.9% 100 ml @ 200 mls/hr IVPB Q12HR [facility] Rx#:[id number] Sodium Chloride 0.9% 1, 220 230 000 ml @ 20 mls/hr IV . Q24H [facility] Rx#:[id number] Tube Feeding 70 190 Other 30 60 Output: Urine 799 1400 Other: Voiding Method Indwelling Catheter Indwelling Catheter - Exam GENERAL EXAM: Alert, active, comfortable in no apparent distress. HEAD: Normocephalic/atraumatic. EYES: Normal reaction of pupils, equal size. Conjunctiva pink, sclera white. NOSE: Clear with pink turbinates. THROAT: No erythema or exudates, midline tracheostomy connected to the mechanical ventilator NECK: No masses, no JVD, no thyroid enlargement, no adenopathy. CHEST: No chest wall deformity. Symmetrical expansion. LUNGS: Equal air entry with no crackles, wheeze, rhonchi or dullness. CVS: Regular rate and rhythm, normal S1 and S2, no gallops, no murmurs, no rubs ABDOMEN: Soft, nontender. No hepatosplenomegaly, normal bowel sounds, no guarding or rigidity. Left-sided PEG tube is in place, she is receiving tube feedings EXTREMITIES: No clubbing, no edema, no cyanosis, 2+ pulses and upper and lower extremities. MUSCULOSKELETAL: Muscle strength and tone normal. SPINE: No scoliosis or deformity SKIN: No rashes CENTRAL NERVOUS SYSTEM: Alert and oriented -3. No focal deficits, tone is normal in all 4 extremities. PSYCHIATRIC: Alert and oriented -3. Appropriate affect. Intact judgment and insight. - Labs CBC & Chem 7: 12/19/18 04:36 12/19/18 04:36 Labs: Abnormal Lab Results - Last 24 Hours (Table) 12/18/18 12/18/18 12/19/18 Range/Units 11:47 18:35 04:22 Hgb (11.4-16.0) gm/dL MCHC (31.0-37.0) g/dL ABG pCO2 73 H* (35-45) mmHg ABG HCO3 51 H* (21-25) mmol/L ABG Total CO2 53 H (19-24) mmol/L ABG O2 Saturation 97.7 H (94-97) % Sodium (137-145) mmol/L Chloride (98-107) mmol/L Carbon Dioxide (22-30) mmol/L BUN (7-17) mg/dL Creatinine (0.52-1.04) mg/dL POC Glucose (mg/dL) 119 H 112 H (75-99) mg/dL Phosphorus (2.5-4.5) mg/dL 12/19/18 12/19/18 Range/Units 04:36 04:36 Hgb 10.9 L (11.4-16.0) gm/dL MCHC 30.3 L (31.0-37.0) g/dL ABG pCO2 (35-45) mmHg ABG HCO3 (21-25) mmol/L ABG Total CO2 (19-24) mmol/L ABG O2 Saturation (94-97) % Sodium 136 L (137-145) mmol/L Chloride 92 L (98-107) mmol/L Carbon Dioxide 42 H* (22-30) mmol/L BUN 25 H (7-17) mg/dL Creatinine 0.26 L (0.52-1.04) mg/dL POC Glucose (mg/dL) (75-99) mg/dL Phosphorus 2.3 L (2.5-4.5) mg/dL Microbiology - Last 24 Hours (Table) 12/12/18 07:55 Blood Culture - Final Blood No Growth after 144 hours Assessment and Plan Plan: Assessment: 1 acute on chronic hypercapnic and hypoxic respiratory failure secondary to advanced COPD and COPD exacerbation. The blood gas shows a compensated respiratory acidosis. The patient will be switched to a pressure support mode of ventilation. With a pressure support of 8 and PEEP of 5 with an FiO2 of 40% . The patient was able to tolerate this morning without any major difficulties. We'll keep her on a pressure support mode for now. This continued IV Solu-Medrol and switch this patient to oral prednisone as part of the burst taper. Continue the rest of the bronchodilators. On 12/19/2018 patient has been tolerating pressure-support trials, yesterday she tolerated for a half hours of pressure-support 12/CPAP of 5 continue his breathing trial. Was placed on assist-control mode of ventilation overnight. This morning we will place her back on pressure support of 10 and CPAP of 5. Blood gas shows chronic hypercapnic respiratory failure with metabolic compensation. Vital signs are stable. 2 chronic hypercapnic respiratory failure 4 chronic hypoxic respiratory failure 5 and states COPD, stage IV COPD and the patient has a tracheostomy tube in place and the patient has been utilizing Trilogy ventilator overnight at home 6 NPO and the PEG tube was reinserted yesterday. 7 chronic depression 8 history of breast cancer with bilateral mastectomy 9 history of bilateral breast implants 10 days history of pneumothorax requiring chest tube insertion as well as a wedge resection of the lung and mechanical pleurodesis 11 increased lower extremity edema, recovered 12 motor weakness 13 pseudomonas in the lung probably a colonizer versus a true infection. Currently on IV Merrem. Plan: We'll place the patient on pressure support of 10 and CPAP of 5 and FiO2 of 40% . No new chest x-rays today, blood gas has been reviewed, labs have been reviewed, vital signs are stable, no acute issues overnight, no specific complaints. Patient is tolerating tube feedings. Patient continues on meropenem for the Pseudomonas in the sputum. Fever or chills, lung sounds are clear to auscultation. The process has been started for placement to [facility] specialty facility. Patient can be transferred once arrangements are complete. Continue with nebulized bronchodilators, oral steroids. We'll continue to follow I performed a history & physical examination of the patient and discussed their management with my nurse practitioner, Destinee Tay. I reviewed the nurse practitioner's note and agree with the documented findings and plan of care. Lung sounds are positive for clear breath sounds. The findings and the impression was discussed with the patient. I attest to the documentation by the nurse practitioner. Time with Patient: Greater than 30
[2018-12-19 12:06] LABS: Glucose,Whole Blood 124 mg/dL (75-99)
[2018-12-19] MEDS: SODIUM CHLORIDE 0.9% 1,000 ML IV SCH (12:14)
[2018-12-19] MEDS: LORazepam 2 MG/ML INJ IV PRN ×2 (13:05→21:04)
--- NOTE | 2018-12-19 17:44 | P.PN ---
Subjective Progress Note Date: 12/19/18 Arterial female with a history of COPD status post trach and previous PEG tube presents to the hospital with dyspnea and increased cough and yellowish phlegm which is blood-tinged. She is been in the ICU and has been managed ICU. Her urine cultures showed E. coli and her sputum cultures for Pseudomonas. She is on meropenem. She had a PEG tube placed yesterday. Pulmonology has been following her very closely 12/18 Today she is on mechanical ventilator to the tracheostomy tube. She feels that her shortness of breath is better, no cough. She has no pain at the site of the PEG tube but there was dry blood around the PEG tube placement site 12/19 No overnight issues On pressure supprot Tolerating peg tube feeding No sob, no cough Objective - Vital Signs Vital signs: Vital Signs Temp 98.9 F 12/19/18 16:00 Pulse 94 12/19/18 17:00 Resp 22 12/19/18 17:00 BP 118/90 12/19/18 17:00 Pulse Ox 93 L 12/19/18 17:00 Intake & Output 12/18/18 12/19/18 12/19/18 18:59 06:59 18:59 Intake Total 305 199 1719 Output Total 799 1400 1075 Balance -479 -820 155 Weight 44.9 kg 46.1 kg 46.1 kg Intake: IV 220 330 220 Meropenem 1 gm In Sodium 100 Chloride 0.9% 100 ml @ 200 mls/hr IVPB Q12HR [facility] Rx#:[id number] Sodium Chloride 0.9% 1, 220 230 220 000 ml @ 20 mls/hr IV . Q24H [facility] Rx#:[id number] Intake, IV Titration 550 Amount Magnesium Sulfate-D5w Pmx 200 1 gm In Dextrose/Water 1 100ml.bag @ 100 mls/hr IVPB Q1H [facility] Rx#: [id number] Meropenem 1 gm In Sodium 100 Chloride 0.9% 100 ml @ 200 mls/hr IVPB Q12HR [facility] Rx#:[id number] Sodium Phosphate 10 mmol 250 In Sodium Chloride 0.9% 250 ml @ 125 mls/hr IVPB ONCE ONE Rx#:[id number] Tube Feeding 70 190 370 Other 30 60 90 Output: Urine 799 1400 1075 Other: Voiding Method Indwelling Catheter Indwelling Catheter Indwelling Catheter - Exam On exam, alert and oriented x3. HEENT: Conjunctivae normal. eyes normal. NECK: No JVD. No thyroid enlargement. No LNs has trach CARDIOVASCULAR: S1, S2 muffled. No murmur RESPIRATION: Breath sounds diminished in the bases. Breath sounds were coarse and was having wheezing today ABDOMEN: Soft, nontender . No guarding. no masses palpable. No ascites, No hepatosplenomegaly.Bowel sounds heard. Has PEG tube LEGS: No edema. no swelling NERVOUS SYSTEM: Cranial N 2-12 grossly normal. Moves all 4 limbs. No focal deficits. No sensory deficit. No signs of cerebellar dysfucntion. Skin: no ulcer no rash Joints: No active swelling. No inflammation. Lymphatic system. No LN neck axilla or groin. - Labs CBC & Chem 7: 12/19/18 04:36 12/19/18 04:36 Labs: Abnormal Lab Results - Last 24 Hours (Table) 12/18/18 12/19/18 12/19/18 Range/Units 18:35 04:22 04:36 Hgb (11.4-16.0) gm/dL MCHC (31.0-37.0) g/dL ABG pCO2 73 H* (35-45) mmHg ABG HCO3 51 H* (21-25) mmol/L ABG Total CO2 53 H (19-24) mmol/L ABG O2 Saturation 97.7 H (94-97) % Sodium 136 L (137-145) mmol/L Chloride 92 L (98-107) mmol/L Carbon Dioxide 42 H* (22-30) mmol/L BUN 25 H (7-17) mg/dL Creatinine 0.26 L (0.52-1.04) mg/dL POC Glucose (mg/dL) 112 H (75-99) mg/dL Phosphorus 2.3 L (2.5-4.5) mg/dL 12/19/18 12/19/18 Range/Units 04:36 12:02 Hgb 10.9 L (11.4-16.0) gm/dL MCHC 30.3 L (31.0-37.0) g/dL ABG pCO2 (35-45) mmHg ABG HCO3 (21-25) mmol/L ABG Total CO2 (19-24) mmol/L ABG O2 Saturation (94-97) % Sodium (137-145) mmol/L Chloride (98-107) mmol/L Carbon Dioxide (22-30) mmol/L BUN (7-17) mg/dL Creatinine (0.52-1.04) mg/dL POC Glucose (mg/dL) 124 H (75-99) mg/dL Phosphorus (2.5-4.5) mg/dL Assessment and Plan Assessment: - Respiratory failure secondary to COPD exacerbation and pneumonia growing pseudomonas - Status post PEG tube - History of depression - History of breast cancer - S/P PEG tube placement. Plan - Continue to monitor in the ICU - She is on pressure support - Conitnue abx for now - Possible transfer to [facility] acute care facility when arrangements are made - Will monitor her
[2018-12-19 19:32] LABS: Glucose,Whole Blood 133 mg/dL (75-99)
[2018-12-19 23:53] LABS: Glucose,Whole Blood 128 mg/dL (75-99)
[2018-12-20] MEDS: IPRATROPIUM-ALBUTEROL 3 ML NEB INHALATION SCH ×6 (03:04→23:00)
[2018-12-20 04:49] LABS: ABG Base Excess 26.4 mmol/L; ABG Oxygen Saturation 94.3 % (94-97); ABG PH 7.38 (7.35-7.45); ABG PO2 72 mmHg (83-108); ABG TCO2 54 mmol/L (19-24)
[2018-12-20 04:56] LABS: ABG HCO3 51 mmol/L (21-25); ABG PCO2 86 mmHg (35-45)
[2018-12-20 05:38] LABS: HCT 41.4 % (34.0-46.0); HGB 12.2 gm/dL (11.4-16.0); Hypochromasia Moderate; MCHC 29.6 g/dL (31.0-37.0); MCV 91.4 fL (80.0-100.0); Mean Platelet Volume 8.8; Platelet Count 184 k/uL (150-450); RBC 4.53 m/uL (3.80-5.40)
[2018-12-20] MEDS: BUDESONIDE 1 MG/2 ML NEBU INHALATION SCH ×2 (06:09→19:16)
[2018-12-20] MEDS: FORMOTEROL FUMARATE 20 MCG/2 ML NEBU INHALATION SCH ×2 (06:09→19:16)
[2018-12-20 06:13] LABS: Blood Urea Nitrogen 18 mg/dL (7-17); Calcium 9.2 mg/dL (8.4-10.2); Chloride 94 mmol/L (98-107); Glucose 116 mg/dL (74-99); Magnesium 2.3 mg/dL (1.6-2.3); Sodium 139 mmol/L (137-145)
[2018-12-20 06:21] LABS: Anion Gap 1 mmol/L
[2018-12-20 06:41] LABS: Carbon Dioxide 44 mmol/L (22-30)
[2018-12-20 06:41] LABS: Glucose,Whole Blood 125 mg/dL (75-99)
[2018-12-20] MEDS ORDERED: LACTATED RINGERS 1,000 ML IV SCH (08:01)
[2018-12-20] MEDS: SODIUM CHLORIDE 0.9% 1,000 ML IV SCH (09:33)
[2018-12-20] MEDS: MEROPENEM 1 GM in SODIUM CHLORIDE 0.9% 100 ML IVPB SCH ×2 (09:33→20:05)
[2018-12-20] MEDS: HEPARIN SODIUM,PORCINE 5,000 UNIT/ML 1 ML VIAL SQ SCH ×2 (09:34→20:05)
[2018-12-20] MEDS: LACTOBACILLUS ACIDOPH & BULGAR 1 EACH PACKET PO SCH ×3 (09:34→16:56)
[2018-12-20] MEDS: predniSONE 20 MG TAB PO SCH (09:34)
[2018-12-20] MEDS: PANTOPRAZOLE 40 MG/10 ML VIAL IV SCH (09:34)
[2018-12-20] MEDS: CHLORHEXIDINE GLUCONATE 15 ML CUP MUCOUS MEM SCH ×2 (09:34→20:05)
--- NOTE | 2018-12-20 10:54 | P.PN ---
Subjective Arterial female with a history of COPD status post trach and previous PEG tube presents to the hospital with dyspnea and increased cough and yellowish phlegm which is blood-tinged. She is been in the ICU and has been managed ICU. Her urine cultures showed E. coli and her sputum cultures for Pseudomonas. She is on meropenem. She had a PEG tube placed yesterday. Pulmonology has been following her very closely 12/18 Today she is on mechanical ventilator to the tracheostomy tube. She feels that her shortness of breath is better, no cough. She has no pain at the site of the PEG tube but there was dry blood around the PEG tube placement site 12/19 No overnight issues On pressure supprot Tolerating peg tube feeding No sob, no cough 12/20 No overnight issues Patient tolerating PEG tube feedings no cough or shortness of breath Patient on pressure support Objective - Vital Signs Vital signs: Vital Signs Temp 98.5 F 12/20/18 08:00 Pulse 85 12/20/18 09:00 Resp 10 L 12/20/18 09:00 BP 108/82 12/20/18 09:00 Pulse Ox 96 12/20/18 09:00 Intake & Output 12/19/18 12/20/18 12/20/18 18:59 06:59 18:59 Intake Total 1280 910 295 Output Total 1125 475 235 Balance 155 435 60 Weight 46.1 kg 45.3 kg Intake: IV 240 330 160 Meropenem 1 gm In Sodium 100 100 Chloride 0.9% 100 ml @ 200 mls/hr IVPB Q12HR [facility] Rx#:[id number] Sodium Chloride 0.9% 1, 240 230 60 000 ml @ 20 mls/hr IV . Q24H [facility] Rx#:[id number] Intake, IV Titration 550 Amount Magnesium Sulfate-D5w Pmx 200 1 gm In Dextrose/Water 1 100ml.bag @ 100 mls/hr IVPB Q1H [facility] Rx#: [id number] Meropenem 1 gm In Sodium 100 Chloride 0.9% 100 ml @ 200 mls/hr IVPB Q12HR [facility] Rx#:[id number] Sodium Phosphate 10 mmol 250 In Sodium Chloride 0.9% 250 ml @ 125 mls/hr IVPB ONCE ONE Rx#:[id number] Tube Feeding 400 490 105 Other 90 90 30 Output: Urine 1125 475 235 Other: Voiding Method Indwelling Catheter Indwelling Catheter - Exam On exam, alert and oriented x3. HEENT: Conjunctivae normal. eyes normal. NECK: No JVD. No thyroid enlargement. No LNs has trach CARDIOVASCULAR: S1, S2 muffled. No murmur RESPIRATION: Breath sounds diminished in the bases. Breath sounds were coarse and was having wheezing today ABDOMEN: Soft, nontender . No guarding. no masses palpable. No ascites, No hepatosplenomegaly.Bowel sounds heard. Has PEG tube LEGS: No edema. no swelling NERVOUS SYSTEM: Cranial N 2-12 grossly normal. Moves all 4 limbs. No focal deficits. No sensory deficit. No signs of cerebellar dysfucntion. Skin: no ulcer no rash Joints: No active swelling. No inflammation. Lymphatic system. No LN neck axilla or groin. - Labs CBC & Chem 7: 12/20/18 04:36 12/20/18 04:36 Labs: Abnormal Lab Results - Last 24 Hours (Table) 12/19/18 12/19/18 12/19/18 Range/Units 12:02 19:21 23:51 MCHC (31.0-37.0) g/dL ABG pCO2 (35-45) mmHg ABG pO2 (83-108) mmHg ABG HCO3 (21-25) mmol/L ABG Total CO2 (19-24) mmol/L Chloride (98-107) mmol/L Carbon Dioxide (22-30) mmol/L BUN (7-17) mg/dL Creatinine (0.52-1.04) mg/dL Glucose (74-99) mg/dL POC Glucose (mg/dL) 124 H 133 H 128 H (75-99) mg/dL 12/20/18 12/20/18 12/20/18 Range/Units 04:36 04:36 04:41 MCHC 29.6 L (31.0-37.0) g/dL ABG pCO2 86 H* (35-45) mmHg ABG pO2 72 L (83-108) mmHg ABG HCO3 51 H* (21-25) mmol/L ABG Total CO2 54 H (19-24) mmol/L Chloride 94 L (98-107) mmol/L Carbon Dioxide 44 H* (22-30) mmol/L BUN 18 H (7-17) mg/dL Creatinine 0.26 L (0.52-1.04) mg/dL Glucose 116 H (74-99) mg/dL POC Glucose (mg/dL) (75-99) mg/dL 12/20/18 Range/Units 06:40 MCHC (31.0-37.0) g/dL ABG pCO2 (35-45) mmHg ABG pO2 (83-108) mmHg ABG HCO3 (21-25) mmol/L ABG Total CO2 (19-24) mmol/L Chloride (98-107) mmol/L Carbon Dioxide (22-30) mmol/L BUN (7-17) mg/dL Creatinine (0.52-1.04) mg/dL Glucose (74-99) mg/dL POC Glucose (mg/dL) 125 H (75-99) mg/dL Assessment and Plan Assessment: - Respiratory failure secondary to COPD exacerbation and pneumonia growing pseudomonas - Status post PEG tube - History of depression - History of breast cancer - S/P PEG tube placement. Plan - Continue to monitor in the ICU - manager corporate strategy working on transfer the patient to long-term care facility - Continue current management at that time - We will follow up on the patient - Continue antibiotics Time with Patient: Greater than 30
[2018-12-20 11:53] LABS: Glucose,Whole Blood 146 mg/dL (75-99)
[2018-12-20] MEDS: DOCUSATE ORAL SOLN 100 MG/10 ML CUP PO SCH (12:13)
--- NOTE | 2018-12-20 13:41 | P.PN ---
Subjective Progress Note Date: 12/20/18 58-year-old female patient with advanced COPD with a baseline FEV1 of less than 30% of predicted was itchy chest tube for now as the patient had a failure to wean and the past due to complications of COPD and she required a tracheostomy tube insertion for that reason. This is a Shiley tracheostomy tube in place. The patient also has a PEG tube. The [facility] during an earlier hospitalization and following that the patient went to a alf in [place] for further recuperation. The patient was eventually improved and she was discharged home with 2 large he ventilator that she's been using on a regular basis. The patient came back to the hospital because of worsening shortness of breath and she was diagnosed having an acute COPD exacerbation. Currently she is attached back to a mechanical ventilator. I was told that yesterday she went all day on a CPAP and she spent the night on a CPAP another this morning the patient was quite lethargic and short of breath. A repeat blood gases was done and the patient was found to be in acute on top of chronic respiratory acidosis and based on that the patient was placed back on assist control mode of ventilation with tidal volume of 325 with an FiO2 of 40% and PEEP of 5 and the rate of 16. The flow is at 40. The patient is awake and alert. Denies having any major respiratory distress while being on a mechanical ventilator. Chest x-ray shows hyperinflation. No acute pulmonary infiltration or pneumonias. She is on normal state rate of 75 mL an hour. She received a dose of Lasix yesterday as the patient was in a positive fluid balance. I still see some increased edema in the upper and lower extremities and for that reason I will order some additional dose of Lasix. No fever or chills. No chest pain. No altered mentation and she is able to answer questions appropriately without any major difficulties. On 12/16/2018 and seeing this patient for a follow-up. She is awake and alert. I did place a tracheostomy tube yesterday I inserted another Shiley trach tube #6 to improve the air leaks. The patient was having considerable amount of air leaks on the tracheostomy tube and this improved. This morning, it was noted that the patient was having elevated peak airway pressures and auto PEEP was quite high. Based on this, I And tidal volume of 350. The rate is 16. Increase the flow up to 70 and this obviously improved with her I:E ratio which is currently at 1-4. PEEP was kept at 5. The chest x-rays showing significant hyperinflation. The air entry is marked limited bilaterally with scattered expiratory wheezes throughout the lung simmons patient remains on accommodation bronchodilators and steroids. She remains on IV Merrem regarding pseudomonas in her lungs. Unable to see the patient at this point in time and she will obviously need a PEG tube insertion for nutritional support. Morning blood gases showed a pH of 7.41 with a pCO2 of 86 and pO2 of 58 with an FiO2 of 40%. White cell count is not elevated. She is arousable. She is on Klonopin and this needs to be replaced with IV Ativan for chronic anxiety. Unable to take anything orally at this point in time. On 12/17/2018, I'm seeing this patient for a follow-up. This morning, the patient is still nothing by mouth. We're going to proceed with a PEG tube insertion today. Meanwhile the patient is on a mechanical ventilator. Vent settings are essentially the same. The patient tidal volume of 350 with a rate of 16 and FiO2 of 40% and a PEEP of 5. The care of pressures around 37. Auto PEEP is at 8. This critically her pressures around 18. Blood gases from today showed a pH of 7.43 with a pCO2 of 79 and pO2 of 90. There is shotty tracheostomy tube in place. No significant air leaks around the 2. She is calm and comfortable. She is hemodynamically stable. She has no significant leukocytosis. The neck fluid balance over the past 24 hours is positive troponin 66 mL. She has an adequate urine output. She remains on IV Merrem regarding pseudomonas in her lungs. She is on IV Ativan for increased anxiety. He remains on DuoNeb nebulized seems [id number]. She is also on accommodation of Pulmicort and Perforomist nebulized treatments twice a day and she is also on IV Solu Medrol 40 mg to 8 hours. On 12/18/2018, I'm seeing this patient for a follow-up. The patient is awake and alert. The patient underwent a successful PEG tube insertion yesterday and the patient will be started on tube feeds today. She has been very calm and comfortable. She is suggest a mechanical ventilator. This morning, I switched this patient to a pressure support of 8 and PEEP of 5. She was able to tolerate this switch without any major difficulties. Her tidal volumes above 350 while being on the pressure support mode of ventilation. She maintain an adequate oxygenation. She is calm and comfortable her respiratory rate is below 25. No fever. No chills. No respiratory secretions. She is a negative fluid balance. We will start tube feeds today. Her blood gases from this morning showed a pH of 7.4 with a pCO2 of 82 and pO2 of 78. She is not anxious. She is developing some motor weakness special with prolonged vent dependence and hospital stay. White cell count is at 7.2. He was stable at 10.8. No other significant events over the past 24 hours. She remains on IV Solu-Medrol that needs to be transitioned to oral prednisone. She is also on IV Merrem. On 12/19/2018 patient seen in follow-up in the intensive care unit, she is resting comfortably in bed, she is sleeping, but arousable, mentation is appropriate. Denies any acute distress, patient did have pressure support trials yesterday, with pressure-support of 12 and CPAP of 5, in the morning for 12 minutes, and for 4-1/2 hours in the evening. Tolerated spontaneous breathing trials in the evening rather well. Patient had a PEG tube placed, she is receiving tube feedings through the PEG tube, Jevity at 20 ML per hour. Lung sounds are clear to auscultation. No new chest x-ray today, blood work today shows white blood cell count of 8.5, hemoglobin of 10.9, serum sodium is 136, potassium is 4.2, chloride is 92, CO2 is 42, BUN is 25 and creatinine 0.26. This morning's blood gas showed a pO2 of 87, pCO2 of 73, and pH of 7.45, consistent with chronic hypercapnic respiratory failure with metabolic compensation. Vital signs are stable, no fever or chills, currently patient is on assist-control mode of ventilation, with a rate of 12, tidal vital 300, FiO2 of 40% and PEEP of 5. This morning we will place her back on pressure-support trials, with pressure-support of 10, and CPAP of 5. Culture data has been reviewed, patient did have pseudomonas aeruginosa in her sputum this admission which was reich susceptible. And Staph epidermidis in the urine, likely contaminated, ill-appearing culture showed no growth. Current antibiotic coverage in the form of meropenem, patient is on nebulized bronchodilators, Pulmicort, Perforomist, and oral steroids. She is calm and comfortable, no specific complaints. Referral process has been started for transfer to [facility] facility. Patient can be transferred to [facility] once arrangements are completed 2019, seeing this patient for a follow-up. She remains intensive care units. Note that the patient tolerated the pressure-support mode of ventilation at the setting of support of 10 and a PEEP of 5 for a total of 10 hours. Ultimately overnight the patient was placed back on assist control mode of ventilation. Today she has no specific complaints for she is awake and alert. Her tube feeds are to goal. No respiratory secretions. She will be switched back to pressure-support mode of ventilation. No agitation. No altered mentation. No nausea. No vomiting. No abdominal pain. She has been transitioned to oral steroids. She is also on accommodation Perforomist and Pulmicort nebulized treatments twice a day and do not overestimates [id number]. She remains on IV Merrem and she has completed the course of antibiotics. Objective - Vital Signs Vital signs: Vital Signs Temp 98.7 F 12/20/18 12:00 Pulse 90 12/20/18 12:00 Resp 16 12/20/18 12:00 BP 129/80 12/20/18 12:00 Pulse Ox 95 12/20/18 12:00 Intake & Output 12/19/18 12/20/18 12/20/18 18:59 06:59 18:59 Intake Total 1280 910 490 Output Total 1125 475 535 Balance 155 435 -45 Weight 46.1 kg 45.3 kg Intake: IV 240 330 220 Meropenem 1 gm In Sodium 100 100 Chloride 0.9% 100 ml @ 200 mls/hr IVPB Q12HR [facility] Rx#:[id number] Sodium Chloride 0.9% 1, 240 230 120 000 ml @ 20 mls/hr IV . Q24H [facility] Rx#:[id number] Intake, IV Titration 550 Amount Magnesium Sulfate-D5w Pmx 200 1 gm In Dextrose/Water 1 100ml.bag @ 100 mls/hr IVPB Q1H [facility] Rx#: [id number] Meropenem 1 gm In Sodium 100 Chloride 0.9% 100 ml @ 200 mls/hr IVPB Q12HR [facility] Rx#:[id number] Sodium Phosphate 10 mmol 250 In Sodium Chloride 0.9% 250 ml @ 125 mls/hr IVPB ONCE ONE Rx#:[id number] Tube Feeding 400 490 210 Other 90 90 60 Output: Urine 1125 475 535 Other: Voiding Method Indwelling Catheter Indwelling Catheter - Exam Thin and frail female patient, currently has a tracheostomy tube in place and the patient is attached a mechanical ventilator. Head exam was generally normal. There was no scleral icterus or corneal arcus. Mucous membranes were moist. Neck was supple and without jugular venous distension, thyromegaly, or carotid bruits. Carotids were easily palpable bilaterally. There was no adenopathy. The patient has a Shiley tracheostomy tube #6 cuffed but not fenestrated. Lungs are diminished bilaterally along with scattered expiratory wheezes throughout the lung simmons. The patient has bilateral breast implants. Cardiac exam revealed the PMI to be normally situated and sized. The rhythm was regular and no extrasystoles were noted during several minutes of auscultation. The first and second heart sounds were normal and physiologic splitting of the second heart sound was noted. There were no murmurs, rubs, clicks, or gallops. Abdominal exam revealed normal bowel sounds. The abdomen was soft, non-tender, and without masses, organomegaly, or appreciable enlargement of the abdominal aorta. The PEG tube site is dry clean and intact Examination of the extremities revealed easily palpable radial, femoral and pedal pulses. There was no cyanosis, clubbing or and there is a +1 pitting edema lower extremities bilaterally. Examination of the skin revealed no evidence of significant rashes, suspicious appearing nevi or other concerning lesions. Neurologically awake and alert and there is no focal neurological deficits. - Labs CBC & Chem 7: 12/20/18 04:36 12/20/18 04:36 Labs: Abnormal Lab Results - Last 24 Hours (Table) 12/19/18 12/19/18 12/20/18 Range/Units 19:21 23:51 04:36 MCHC (31.0-37.0) g/dL ABG pCO2 (35-45) mmHg ABG pO2 (83-108) mmHg ABG HCO3 (21-25) mmol/L ABG Total CO2 (19-24) mmol/L Chloride 94 L (98-107) mmol/L Carbon Dioxide 44 H* (22-30) mmol/L BUN 18 H (7-17) mg/dL Creatinine 0.26 L (0.52-1.04) mg/dL Glucose 116 H (74-99) mg/dL POC Glucose (mg/dL) 133 H 128 H (75-99) mg/dL 12/20/18 12/20/18 12/20/18 Range/Units 04:36 04:41 06:40 MCHC 29.6 L (31.0-37.0) g/dL ABG pCO2 86 H* (35-45) mmHg ABG pO2 72 L (83-108) mmHg ABG HCO3 51 H* (21-25) mmol/L ABG Total CO2 54 H (19-24) mmol/L Chloride (98-107) mmol/L Carbon Dioxide (22-30) mmol/L BUN (7-17) mg/dL Creatinine (0.52-1.04) mg/dL Glucose (74-99) mg/dL POC Glucose (mg/dL) 125 H (75-99) mg/dL 12/20/18 Range/Units 11:51 MCHC (31.0-37.0) g/dL ABG pCO2 (35-45) mmHg ABG pO2 (83-108) mmHg ABG HCO3 (21-25) mmol/L ABG Total CO2 (19-24) mmol/L Chloride (98-107) mmol/L Carbon Dioxide (22-30) mmol/L BUN (7-17) mg/dL Creatinine (0.52-1.04) mg/dL Glucose (74-99) mg/dL POC Glucose (mg/dL) 146 H (75-99) mg/dL Assessment and Plan Plan: Assessment 1 acute on chronic hypercapnic and hypoxic respiratory failure secondary to advanced COPD and COPD exacerbation. This patient has advanced end-stage COPD and the patient is currently on a mechanical ventilator and she is being gradually weaned and she is being given daily pressure support mode of ventilation at the pressure of 10 with a PEEP of 5. She is able to tolerate and we'll gradually increasing time for spontaneous breathing. No new complaints otherwise for now. 2 chronic hypercapnic respiratory failure 4 chronic hypoxic respiratory failure 5 and states COPD, stage IV COPD and the patient has a tracheostomy tube in place and the patient has been utilizing Trilogy ventilator overnight at home 6 enteral feeding through active for nutritional support 7 chronic depression 8 history of breast cancer with bilateral mastectomy 9 history of bilateral breast implants 10 days history of pneumothorax requiring chest tube insertion as well as a wedge resection of the lung and mechanical pleurodesis 11 increased lower extremity edema, recovered 12 motor weakness 13 pseudomonas in the lung probably a colonizer versus a true infection. Currently on IV Merrem. Plan The ultimate plan is to send this patient to [facility] once we get insurance authorization. We will switch her to a pressure support of 10 and PEEP of 5. Monitor respiratory status. Monitor tidal volume and respiratory rate. The blood gases from this morning was noted. The patient has chronic hypercapnic respiratory failure with seems to be well compensated. Completed the course of IV Merrem. We'll give the patient total of 10 days. Continue enteral feeding for nutritional support. Physical therapy. IV fluids to KVO. We'll continue to follow.
[2018-12-20] MEDS: LORazepam 2 MG/ML INJ IV PRN (17:38)
[2018-12-20 18:14] LABS: Glucose,Whole Blood 149 mg/dL (75-99)
[2018-12-21 00:03] LABS: Glucose,Whole Blood 90 mg/dL (75-99)
[2018-12-21] MEDS: IPRATROPIUM-ALBUTEROL 3 ML NEB INHALATION SCH ×6 (03:00→22:52)
[2018-12-21 05:07] LABS: ABG Base Excess 24.5 mmol/L; ABG PH 7.43 (7.35-7.45); ABG PO2 95 mmHg (83-108); ABG TCO2 51 mmol/L (19-24)
[2018-12-21 05:31] LABS: HCT 37.6 % (34.0-46.0); HGB 11.3 gm/dL (11.4-16.0); Hypochromasia Marked; MCH 27.6 pg (25.0-35.0); MCV 92.2 fL (80.0-100.0); Mean Platelet Volume 8.5; Platelet Count 192 k/uL (150-450); RBC 4.07 m/uL (3.80-5.40); RDW 14.1 % (11.5-15.5); WBC 9.7 k/uL (3.8-10.6)
[2018-12-21 05:45] LABS: Blood Urea Nitrogen 18 mg/dL (7-17); Calcium 9.2 mg/dL (8.4-10.2); Chloride 96 mmol/L (98-107); Glucose 109 mg/dL (74-99); Magnesium 2.2 mg/dL (1.6-2.3); Phosphorus 2.9 mg/dL (2.5-4.5); Potassium 4.3 mmol/L (3.5-5.1); Sodium 140 mmol/L (137-145)
[2018-12-21 05:50] LABS: ABG PCO2 75 mmHg (35-45)
[2018-12-21 05:51] LABS: ABG HCO3 49 mmol/L (21-25)
[2018-12-21 05:52] LABS: Anion Gap 1 mmol/L
[2018-12-21 05:59] LABS: Carbon Dioxide 43 mmol/L (22-30)
[2018-12-21 06:10] LABS: Glucose,Whole Blood 97 mg/dL (75-99)
[2018-12-21] MEDS: FORMOTEROL FUMARATE 20 MCG/2 ML NEBU INHALATION SCH ×2 (08:44→18:58)
[2018-12-21] MEDS: BUDESONIDE 1 MG/2 ML NEBU INHALATION SCH ×2 (08:45→19:13)
[2018-12-21] MEDS: CHLORHEXIDINE GLUCONATE 15 ML CUP MUCOUS MEM SCH ×2 (08:56→20:35)
[2018-12-21] MEDS: SODIUM CHLORIDE 0.9% 1,000 ML IV SCH (08:56)
[2018-12-21] MEDS: predniSONE 20 MG TAB PO SCH (08:57)
[2018-12-21] MEDS: LACTOBACILLUS ACIDOPH & BULGAR 1 EACH PACKET PO SCH ×3 (08:57→17:32)
[2018-12-21] MEDS: HEPARIN SODIUM,PORCINE 5,000 UNIT/ML 1 ML VIAL SQ SCH ×2 (08:57→20:35)
[2018-12-21] MEDS: PANTOPRAZOLE 40 MG/10 ML VIAL IV SCH (09:01)
[2018-12-21] MEDS: DOCUSATE ORAL SOLN 100 MG/10 ML CUP PO SCH (09:01)
[2018-12-21] MEDS ORDERED: SODIUM CHLORIDE 0.9% 500 ML 500 ML IV ONE (10:17)
[2018-12-21 11:49] LABS: Glucose,Whole Blood 126 mg/dL (75-99)
--- NOTE | 2018-12-21 12:05 | P.PN ---
Subjective Arterial female with a history of COPD status post trach and previous PEG tube presents to the hospital with dyspnea and increased cough and yellowish phlegm which is blood-tinged. She is been in the ICU and has been managed ICU. Her urine cultures showed E. coli and her sputum cultures for Pseudomonas. She is on meropenem. She had a PEG tube placed yesterday. Pulmonology has been following her very closely 12/18 Today she is on mechanical ventilator to the tracheostomy tube. She feels that her shortness of breath is better, no cough. She has no pain at the site of the PEG tube but there was dry blood around the PEG tube placement site 12/19 No overnight issues On pressure supprot Tolerating peg tube feeding No sob, no cough 12/20 No overnight issues Patient tolerating PEG tube feedings no cough or shortness of breath Patient on pressure support 12/21/2018 Patient says that she's doing good Shortness of breath is better. No cough. Objective - Vital Signs Vital signs: Vital Signs Temp 98.4 F 12/21/18 08:00 Pulse 90 12/21/18 11:00 Resp 16 12/21/18 11:00 BP 138/82 12/21/18 11:00 Pulse Ox 93 L 12/21/18 11:00 Intake & Output 12/20/18 12/21/18 12/21/18 18:59 06:59 18:59 Intake Total 850 885 305 Output Total 1445 359 390 Balance -595 526 -85 Weight 46.4 kg Intake: IV 340 240 100 Meropenem 1 gm In Sodium 100 Chloride 0.9% 100 ml @ 200 mls/hr IVPB Q12HR [facility] Rx#:[id number] Sodium Chloride 0.9% 1, 240 240 100 000 ml @ 20 mls/hr IV . Q24H [facility] Rx#:[id number] Tube Feeding 420 525 175 Other 90 120 30 Output: Urine 1445 359 390 Other: Voiding Method Indwelling Catheter Indwelling Catheter Indwelling Catheter - Exam On exam, alert and oriented x3. HEENT: Conjunctivae normal. eyes normal. NECK: No JVD. No thyroid enlargement. No LNs has trach CARDIOVASCULAR: S1, S2 muffled. No murmur RESPIRATION: Breath sounds diminished in the bases. Breath sounds were coarse and was having wheezing today ABDOMEN: Soft, nontender . No guarding. no masses palpable. No ascites, No hepatosplenomegaly.Bowel sounds heard. Has PEG tube LEGS: No edema. no swelling NERVOUS SYSTEM: Cranial N 2-12 grossly normal. Moves all 4 limbs. No focal deficits. No sensory deficit. No signs of cerebellar dysfucntion. Skin: no ulcer no rash Joints: No active swelling. No inflammation. Lymphatic system. No LN neck axilla or groin. - Labs CBC & Chem 7: 12/21/18 04:16 12/21/18 04:16 Labs: Abnormal Lab Results - Last 24 Hours (Table) 12/20/18 12/21/18 12/21/18 Range/Units 18:12 04:16 04:16 Hgb 11.3 L (11.4-16.0) gm/dL MCHC 30.0 L (31.0-37.0) g/dL ABG pCO2 (35-45) mmHg ABG HCO3 (21-25) mmol/L ABG Total CO2 (19-24) mmol/L ABG O2 Saturation (94-97) % Chloride 96 L (98-107) mmol/L Carbon Dioxide 43 H* (22-30) mmol/L BUN 18 H (7-17) mg/dL Creatinine 0.31 L (0.52-1.04) mg/dL Glucose 109 H (74-99) mg/dL POC Glucose (mg/dL) 149 H (75-99) mg/dL 12/21/18 12/21/18 Range/Units 05:01 11:47 Hgb (11.4-16.0) gm/dL MCHC (31.0-37.0) g/dL ABG pCO2 75 H* (35-45) mmHg ABG HCO3 49 H* (21-25) mmol/L ABG Total CO2 51 H (19-24) mmol/L ABG O2 Saturation 98.0 H (94-97) % Chloride (98-107) mmol/L Carbon Dioxide (22-30) mmol/L BUN (7-17) mg/dL Creatinine (0.52-1.04) mg/dL Glucose (74-99) mg/dL POC Glucose (mg/dL) 126 H (75-99) mg/dL Assessment and Plan Assessment: - Respiratory failure secondary to COPD exacerbation and pneumonia growing pseudomonas - Status post PEG tube - History of depression - History of breast cancer - S/P PEG tube placement. Plan - Continue to monitor in the ICU - No overnight issues - We'll continue to monitor the patient - Patient to be [facility] to [facility] once insurance authorized - business segment manager working on the transfer Time with Patient: Less than 30
--- NOTE | 2018-12-21 13:46 | P.PN ---
Subjective Progress Note Date: 12/21/18 58-year-old female patient with advanced COPD with a baseline FEV1 of less than 30% of predicted was itchy chest tube for now as the patient had a failure to wean and the past due to complications of COPD and she required a tracheostomy tube insertion for that reason. This is a Shiley tracheostomy tube in place. The patient also has a PEG tube. The patient was [facility] to [facility] during an earlier hospitalization and following that the patient went to a correction in [place] for further recuperation. The patient was eventually improved and she was discharged home with 2 large he ventilator that she's been using on a regular basis. The patient came back to the hospital because of worsening shortness of breath and she was diagnosed having an acute COPD exacerbation. Currently she is attached back to a mechanical ventilator. I was told that yesterday she went all day on a CPAP and she spent the night on a CPAP another this morning the patient was quite lethargic and short of breath. A repeat blood gases was done and the patient was found to be in acute on top of chronic respiratory acidosis and based on that the patient was placed back on assist control mode of ventilation with tidal volume of 325 with an FiO2 of 40% and PEEP of 5 and the rate of 16. The flow is at 40. The patient is awake and alert. Denies having any major respiratory distress while being on a mechanical ventilator. Chest x-ray shows hyperinflation. No acute pulmonary infiltration or pneumonias. She is on normal state rate of 75 mL an hour. She received a dose of Lasix yesterday as the patient was in a positive fluid balance. I still see some increased edema in the upper and lower extremities and for that reason I will order some additional dose of Lasix. No fever or chills. No chest pain. No altered mentation and she is able to answer questions appropriately without any major difficulties. On 12/16/2018 and seeing this patient for a follow-up. She is awake and alert. I did place a tracheostomy tube yesterday I inserted another Shiley trach tube #6 to improve the air leaks. The patient was having considerable amount of air leaks on the tracheostomy tube and this improved. This morning, it was noted that the patient was having elevated peak airway pressures and auto PEEP was quite high. Based on this, I And tidal volume of 350. The rate is 16. Increase the flow up to 70 and this obviously improved with her I:E ratio which is currently at 1-4. PEEP was kept at 5. The chest x-rays showing significant hyperinflation. The air entry is marked limited bilaterally with scattered expiratory wheezes throughout the lung simmons patient remains on accommodation bronchodilators and steroids. She remains on IV Merrem regarding pseudomonas in her lungs. Unable to see the patient at this point in time and she will obviously need a PEG tube insertion for nutritional support. Morning blood gases showed a pH of 7.41 with a pCO2 of 86 and pO2 of 58 with an FiO2 of 40%. White cell count is not elevated. She is arousable. She is on Klonopin and this needs to be replaced with IV Ativan for chronic anxiety. Unable to take anything orally at this point in time. On 12/17/2018, I'm seeing this patient for a follow-up. This morning, the patient is still nothing by mouth. We're going to proceed with a PEG tube insertion today. Meanwhile the patient is on a mechanical ventilator. Vent settings are essentially the same. The patient tidal volume of 350 with a rate of 16 and FiO2 of 40% and a PEEP of 5. The care of pressures around 37. Auto PEEP is at 8. This critically her pressures around 18. Blood gases from today showed a pH of 7.43 with a pCO2 of 79 and pO2 of 90. There is shotty tracheostomy tube in place. No significant air leaks around the 2. She is calm and comfortable. She is hemodynamically stable. She has no significant leukocytosis. The neck fluid balance over the past 24 hours is positive troponin 66 mL. She has an adequate urine output. She remains on IV Merrem regarding pseudomonas in her lungs. She is on IV Ativan for increased anxiety. He remains on DuoNeb nebulized seems [id number]. She is also on accommodation of Pulmicort and Perforomist nebulized treatments twice a day and she is also on IV Solu Medrol 40 mg to 8 hours. On 12/18/2018, I'm seeing this patient for a follow-up. The patient is awake and alert. The patient underwent a successful PEG tube insertion yesterday and the patient will be started on tube feeds today. She has been very calm and comfortable. She is suggest a mechanical ventilator. This morning, I switched this patient to a pressure support of 8 and PEEP of 5. She was able to tolerate this switch without any major difficulties. Her tidal volumes above 350 while being on the pressure support mode of ventilation. She maintain an adequate oxygenation. She is calm and comfortable her respiratory rate is below 25. No fever. No chills. No respiratory secretions. She is a negative fluid balance. We will start tube feeds today. Her blood gases from this morning showed a pH of 7.4 with a pCO2 of 82 and pO2 of 78. She is not anxious. She is developing some motor weakness special with prolonged vent dependence and hospital stay. White cell count is at 7.2. He was stable at 10.8. No other significant events over the past 24 hours. She remains on IV Solu-Medrol that needs to be transitioned to oral prednisone. She is also on IV Merrem. On 12/19/2018 patient seen in follow-up in the intensive care unit, she is resting comfortably in bed, she is sleeping, but arousable, mentation is appropriate. Denies any acute distress, patient did have pressure support trials yesterday, with pressure-support of 12 and CPAP of 5, in the morning for 12 minutes, and for 4-1/2 hours in the evening. Tolerated spontaneous breathing trials in the evening rather well. Patient had a PEG tube placed, she is receiving tube feedings through the PEG tube, Jevity at 20 ML per hour. Lung sounds are clear to auscultation. No new chest x-ray today, blood work today shows white blood cell count of 8.5, hemoglobin of 10.9, serum sodium is 136, potassium is 4.2, chloride is 92, CO2 is 42, BUN is 25 and creatinine 0.26. This morning's blood gas showed a pO2 of 87, pCO2 of 73, and pH of 7.45, consistent with chronic hypercapnic respiratory failure with metabolic compensation. Vital signs are stable, no fever or chills, currently patient is on assist-control mode of ventilation, with a rate of 12, tidal vital 300, FiO2 of 40% and PEEP of 5. This morning we will place her back on pressure-support trials, with pressure-support of 10, and CPAP of 5. Culture data has been reviewed, patient did have pseudomonas aeruginosa in her sputum this admission which was reich susceptible. And Staph epidermidis in the urine, likely contaminated, ill-appearing culture showed no growth. Current antibiotic coverage in the form of meropenem, patient is on nebulized bronchodilators, Pulmicort, Perforomist, and oral steroids. She is calm and comfortable, no specific complaints. Referral process has been started for transfer to select specialty facility. Patient can be transferred to select specialty once arrangements are completed On 12/20/2018 seeing this patient for a follow-up. She remains intensive care units. Note that the patient tolerated the pressure-support mode of ventilation at the setting of support of 10 and a PEEP of 5 for a total of 10 hours. Ultimately overnight the patient was placed back on assist control mode of ventilation. Today she has no specific complaints for she is awake and alert. Her tube feeds are to goal. No respiratory secretions. She will be switched back to pressure-support mode of ventilation. No agitation. No altered mentation. No nausea. No vomiting. No abdominal pain. She has been transitioned to oral steroids. She is also on accommodation Perforomist and Pulmicort nebulized treatments twice a day and do not overestimates around-the- clock. She remains on IV Merrem and she has completed the course of antibiotics. On 12/21/2018, I'm seeing this patient for a follow-up. Her condition remains unchanged. She is doing daily pressure-support wean. Today I'm going to put on a pressure support of 5 and a PEEP of 5. She is calm and comfortable. No significant anxiety. No significant shortness of breath. She is vent dependent and I'm not sure if she is going to really wean herself off completely. She is tolerating her tube feeds. IV Merrem was discontinued. She is on oral prednisone as a part of a first taper. She is also on a combination of Perforomist and Pulmicort neb last 2 minutes twice a day. No other significant events over the past 24 hours. She is awake and she is communicating. Objective - Vital Signs Vital signs: Vital Signs Temp 98.8 F 12/21/18 12:00 Pulse 98 12/21/18 13:00 Resp 23 12/21/18 13:00 BP 144/87 12/21/18 13:00 Pulse Ox 92 L 12/21/18 13:00 Intake & Output 12/20/18 12/21/18 12/21/18 18:59 06:59 18:59 Intake Total 850 885 390 Output Total 1445 359 740 Balance -595 526 -350 Weight 46.4 kg Intake: IV 340 240 120 Meropenem 1 gm In Sodium 100 Chloride 0.9% 100 ml @ 200 mls/hr IVPB Q12HR [facility] Rx#:[id number] Sodium Chloride 0.9% 1, 240 240 120 000 ml @ 20 mls/hr IV . Q24H [facility] Rx#:[id number] Tube Feeding 420 525 210 Other 90 120 60 Output: Urine 1445 359 740 Other: Voiding Method Indwelling Catheter Indwelling Catheter Indwelling Catheter - Exam Thin and frail female patient, currently has a tracheostomy tube in place and the patient is attached a mechanical ventilator. Head exam was generally normal. There was no scleral icterus or corneal arcus. Mucous membranes were moist. Neck was supple and without jugular venous distension, thyromegaly, or carotid bruits. Carotids were easily palpable bilaterally. There was no adenopathy. The patient has a Shiley tracheostomy tube #6 cuffed but not fenestrated. Lungs are diminished bilaterally along with scattered expiratory wheezes throughout the lung simmons. The patient has bilateral breast implants. Cardiac exam revealed the PMI to be normally situated and sized. The rhythm was regular and no extrasystoles were noted during several minutes of auscultation. The first and second heart sounds were normal and physiologic splitting of the second heart sound was noted. There were no murmurs, rubs, clicks, or gallops. Abdominal exam revealed normal bowel sounds. The abdomen was soft, non-tender, and without masses, organomegaly, or appreciable enlargement of the abdominal aorta. The PEG tube site is dry clean and intact Examination of the extremities revealed easily palpable radial, femoral and pedal pulses. There was no cyanosis, clubbing or and there is a +1 pitting edema lower extremities bilaterally. Examination of the skin revealed no evidence of significant rashes, suspicious appearing nevi or other concerning lesions. Neurologically awake and alert and there is no focal neurological deficits. - Labs CBC & Chem 7: 12/21/18 04:16 12/21/18 04:16 Labs: Abnormal Lab Results - Last 24 Hours (Table) 12/20/18 12/21/18 12/21/18 Range/Units 18:12 04:16 04:16 Hgb 11.3 L (11.4-16.0) gm/dL MCHC 30.0 L (31.0-37.0) g/dL ABG pCO2 (35-45) mmHg ABG HCO3 (21-25) mmol/L ABG Total CO2 (19-24) mmol/L ABG O2 Saturation (94-97) % Chloride 96 L (98-107) mmol/L Carbon Dioxide 43 H* (22-30) mmol/L BUN 18 H (7-17) mg/dL Creatinine 0.31 L (0.52-1.04) mg/dL Glucose 109 H (74-99) mg/dL POC Glucose (mg/dL) 149 H (75-99) mg/dL 12/21/18 12/21/18 Range/Units 05:01 11:47 Hgb (11.4-16.0) gm/dL MCHC (31.0-37.0) g/dL ABG pCO2 75 H* (35-45) mmHg ABG HCO3 49 H* (21-25) mmol/L ABG Total CO2 51 H (19-24) mmol/L ABG O2 Saturation 98.0 H (94-97) % Chloride (98-107) mmol/L Carbon Dioxide (22-30) mmol/L BUN (7-17) mg/dL Creatinine (0.52-1.04) mg/dL Glucose (74-99) mg/dL POC Glucose (mg/dL) 126 H (75-99) mg/dL Assessment and Plan Plan: Assessment 1 acute on chronic hypercapnic and hypoxic respiratory failure secondary to advanced COPD and COPD exacerbation. The patient is ventilator dependent. The patient is undergoing daily pressure support/CPAP trials. We're looking to send this patient to therapy and wean. 2 chronic hypercapnic respiratory failure, compensated on most recent blood gas. 4 chronic hypoxic respiratory failure 5 End stage- COPD, stage IV COPD and the patient has a tracheostomy tube in place and the patient has been utilizing Trilogy ventilator overnight at home 6 enteral feeding through active for nutritional support 7 chronic depression 8 history of breast cancer with bilateral mastectomy 9 history of bilateral breast implants 10 days history of pneumothorax requiring chest tube insertion as well as a wedge resection of the lung and mechanical pleurodesis 11 increased lower extremity edema, recovered 12 motor weakness 13 pseudomonas in the lung probably a colonizer versus a true infection. Currently on IV Merrem. Plan The patient is stable. Continue vent support. The patient will placed on a pressure support of 5 and a PEEP of 5. This continued IV meropenem. Continue tube feeds. Continue prednisone burst taper. Prognosis poor. I'm not sure if the patient is going to be completely weaned off the mechanical ventilator. She has a Trilogy ventilator at home. She may benefit from a long vent facility where daily weaning trials can be performed as part of her weaning process which in my opinion will be quite extensive and prolonged.
[2018-12-21 17:38] LABS: Glucose,Whole Blood 126 mg/dL (75-99)
[2018-12-21] MEDS: LORazepam 2 MG/ML INJ IV PRN (20:35)
[2018-12-22 00:26] LABS: Glucose,Whole Blood 94 mg/dL (75-99)
[2018-12-22] MEDS ORDERED: LORazepam 2 MG/ML INJ IV STA (01:49)
[2018-12-22] MEDS: IPRATROPIUM-ALBUTEROL 3 ML NEB INHALATION SCH ×6 (03:06→22:54)
[2018-12-22 04:46] LABS: HCT 41.4 % (34.0-46.0); HGB 12.1 gm/dL (11.4-16.0); Hypochromasia Marked; MCH 27.5 pg (25.0-35.0); MCHC 29.2 g/dL (31.0-37.0); MCV 94.1 fL (80.0-100.0); Mean Platelet Volume 9.7; Platelet Count 166 k/uL (150-450); RDW 14.1 % (11.5-15.5); WBC 8.5 k/uL (3.8-10.6)
[2018-12-22 05:03] LABS: Blood Urea Nitrogen 20 mg/dL (7-17); Calcium 9.8 mg/dL (8.4-10.2); Chloride 96 mmol/L (98-107); Glucose 118 mg/dL (74-99); Magnesium 2.2 mg/dL (1.6-2.3); Potassium 4.6 mmol/L (3.5-5.1); Sodium 141 mmol/L (137-145)
[2018-12-22 05:32] LABS: Anion Gap 1 mmol/L
[2018-12-22 05:42] LABS: Carbon Dioxide 44 mmol/L (22-30)
[2018-12-22 05:51] LABS: Glucose,Whole Blood 108 mg/dL (75-99)
[2018-12-22] MEDS: BUDESONIDE 1 MG/2 ML NEBU INHALATION SCH ×2 (07:03→21:04)
[2018-12-22] MEDS: FORMOTEROL FUMARATE 20 MCG/2 ML NEBU INHALATION SCH ×2 (07:03→18:56)
[2018-12-22] MEDS ORDERED: SODIUM CHLORIDE 0.9% 1,000 ML IV ONE (08:47)
[2018-12-22] MEDS: SODIUM CHLORIDE 0.9% 1,000 ML IV SCH ×2 (08:52→20:54)
[2018-12-22] MEDS: LACTOBACILLUS ACIDOPH & BULGAR 1 EACH PACKET PO SCH ×3 (08:53→18:18)
[2018-12-22] MEDS: CHLORHEXIDINE GLUCONATE 15 ML CUP MUCOUS MEM SCH ×2 (08:53→20:53)
[2018-12-22] MEDS: PANTOPRAZOLE 40 MG/10 ML VIAL IV SCH (08:54)
[2018-12-22] MEDS: DOCUSATE ORAL SOLN 100 MG/10 ML CUP PO SCH (08:55)
[2018-12-22] MEDS: HEPARIN SODIUM,PORCINE 5,000 UNIT/ML 1 ML VIAL SQ SCH ×2 (08:55→20:53)
[2018-12-22] MEDS: predniSONE 20 MG TAB PO SCH (08:56)
--- NOTE | 2018-12-22 11:17 | P.PN ---
Subjective Progress Note Date: 12/22/18 Principal diagnosis: Acute on chronic hypoxic and hypercapnic respiratory failure secondary to COPD exacerbation. 58-year-old female patient with advanced COPD with a baseline FEV1 of less than 30% of predicted, developed recent episode of acute respiratory failure requiring intubation, and failure to wean. required a tracheostomy tube insertion for that reason. There is a Shiley tracheostomy tube in place. The patient also has a PEG tube. The patient was [facility] to [facility] during an earlier hospitalization and following that the patient went to a group home in [place] for further recuperation. The patient was eventually improved and she was discharged with home ventilator that she's been using on a regular basis. The patient came back to the hospital because of worsening shortness of breath and she was diagnosed having an acute COPD exacerbation. Currently she is attached back to a mechanical ventilator. Patient has been on multiple trials of pressure support and CPAP, and yesterday she was on CPAP with minimal pressure support most of the day. Today she is back on assist control mode of mechanical ventilation. Patient is now on assist control rate of 16, tidal volume of 300 FiO2 of 40% and PEEP of 5. Patient seems to be tolerating that mode of mechanical ventilation quite well, and my understanding was that the patient did not qualify for [facility] evaluation, and could not be transferred. Hence we plan to continue weaning trials, and most likely she'll end up going home or to a facility with home ventilator. Patient is going to be impossible to wean off mechanical ventilation. Patient had a PEG tube in place, and we'll plan to place a PICC line, we will try again pressure support of 5 and PEEP of 5 today, and in the meantime case management social worker and discharge planning are addressing possibly even a facility which can handle the ventilator, or eventually home with her own ventilator. Chest x-ray was reviewed from 12/18/2018, and no evidence of active disease. No chest x-ray was done today. All labs including CBC, basic metabolic profile were reviewed, bicarb is elevated at 44 and this is chronic metabolic compensation for chronic respiratory acidosis. All meds were reviewed and unchanged. Objective - Vital Signs Vital signs: Vital Signs Temp 98.2 F 12/22/18 04:00 Pulse 84 12/22/18 07:35 Resp 16 12/22/18 06:00 BP 99/67 12/22/18 06:00 Pulse Ox 98 12/22/18 06:00 Intake & Output 12/21/18 12/22/18 12/22/18 18:59 06:59 18:59 Intake Total 750 825 Output Total 1575 270 Balance -825 555 Weight 46.4 kg Intake: IV 240 310 Sodium Chloride 0.9% 1, 240 310 000 ml @ 20 mls/hr IV . Q24H [facility] Rx#:[id number] Tube Feeding 420 455 Other 90 60 Output: Urine 1575 270 Other: Voiding Method Indwelling Catheter Indwelling Catheter - Exam Physical Exam: Revealed a 58-year-old female, frail looking, on mechanical ventilation via tracheostomy tube in place. Head: Atraumatic, normocephalic. HEENT:[Neck is supple.] [No neck masses.] [No thyromegaly.] [No JVD.] Tracheostomy tube, Shiley #6 cuffed and not fenestrated. Noted. Chest: [Diminished breath sound bilaterally, scattered rhonchi and wheezes noted bilaterally. Cardiac Exam: [Normal S1 and S2, no S3 gallop, no murmur.] Abdomen: [Soft, nontender, no megaly, no rebound, no guarding, normal bowel sounds.] Extremities: [No clubbing, no edema, no cyanosis.] Neurological Exam: [No focal neurologic deficit.] Psychiatric: Normal mood affect and mental status examination. Skin: No rashes. - Labs CBC & Chem 7: 12/22/18 04:16 12/22/18 04:16 Labs: Abnormal Lab Results - Last 24 Hours (Table) 12/21/18 12/21/18 12/22/18 Range/Units 11:47 17:36 04:16 MCHC (31.0-37.0) g/dL Chloride 96 L (98-107) mmol/L Carbon Dioxide 44 H* (22-30) mmol/L BUN 20 H (7-17) mg/dL Creatinine 0.31 L (0.52-1.04) mg/dL Glucose 118 H (74-99) mg/dL POC Glucose (mg/dL) 126 H 126 H (75-99) mg/dL 12/22/18 12/22/18 Range/Units 04:16 05:49 MCHC 29.2 L (31.0-37.0) g/dL Chloride (98-107) mmol/L Carbon Dioxide (22-30) mmol/L BUN (7-17) mg/dL Creatinine (0.52-1.04) mg/dL Glucose (74-99) mg/dL POC Glucose (mg/dL) 108 H (75-99) mg/dL Assessment and Plan Assessment: Impression: 1 acute on chronic hypercapnic and hypoxic respiratory failure secondary to severe COPD exacerbation. Patient is chronically ventilator dependent. Tolerating CPAP trials, with pressure support, but clearly the patient will not be able to be extubated, and the trach is not going to be D cannulated. 2 end stage COPD: Stage IV patient normally has a triology ventilator at home. 3 chronic hypoxic and hypercapnic respiratory failure secondary to COPD 4 positive tracheal secretions for Pseudomonas, but no clear-cut evidence of infection, patient remains on antibiotics,/Merrem. This is probably a colonization. 5 previous history of pneumothorax requiring chest tube insertion and mechanical pleurodesis. 6 chronic depression 7 enteral feeding via PEG tube Recommendation: Continue present ventilatory support, try again weaning utilizing CPAP. Continue IV Merrem continue tube feeding, continue bronchodilators, prednisone/steroids, continue plans to hopefully transfer the patient to a facility where she could have her own ventilator in a facility rather than being at home. Doubt the patient could actually be successfully extubated from mechanical ventilation, again I would have preferred the patient to go to [facility] care specialty but by understanding this could not be done. Prognosis remains extremely poor and guarded, we'll continue to follow. Time with Patient: Less than 30
[2018-12-22 11:58] LABS: Glucose,Whole Blood 138 mg/dL (75-99)
[2018-12-22] MEDS: LORazepam 2 MG/ML INJ IV PRN ×2 (13:46→21:47)
[2018-12-22] MEDS ORDERED: LIDOCAINE 1% INJ 10MG/ML (20 ML MDV) SQ ONE (15:44)
--- NOTE | 2018-12-22 16:16 | XR ---
EXAMINATION TYPE: XR chest 1V portable DATE OF EXAM: 12/22/2018 COMPARISON: Prior chest x-ray 12/18/2018 HISTORY: Status post PICC line placement TECHNIQUE: Single frontal view of the chest is obtained. FINDINGS: There is been interval placement of left-sided PICC line. Distal tip is overlying the cavo atrial junction. No evident pneumothorax or pleural effusion. Apices not entirely included on exam. T racheostomy tube remains in place. IMPRESSION: No evident complication status post PICC line placement.
--- NOTE | 2018-12-22 16:54 | IR ---
EXAMINATION TYPE: IR cvc insert >=5 years DATE OF EXAM: 12/22/2018 COMPARISON: NONE HISTORY: Needs long-term intravenous access readily atelectasis, total parenteral nutrition FINDINGS: Maximal barrier technique was utilized. The skin overlying the left basilic vein was local ized with ultrasound and noted to be compressible and patent by ultrasound. An ultrasound image was obtained and submitted on patient's chart. Sterile technique utilized with the ultrasound machine. Th e skin overlying was prepped and draped and Lidocaine used for local anesthesia. A skin neena was mad e with a scalpel. Access was gained to the vein under direct ultrasound guidance with a 21-gauge nee dle and a 0.018 inch wire was advanced. Access site was dilated with a peel-away sheath and the cath eter tailored to length. Catheter advanced centrally and a post procedure chest x-ray verified place ment with the tip in the superior vena cava. Catheter was fixed to the skin and a sterile dressing p laced. Hemostasis achieved and the catheter was aspirated and flushed with sterile saline. The ana ent remained in stable condition. IMPRESSION: STATUS POST ULTRASOUND GUIDED PICC LINE PLACEMENT, READY FOR USE. THIS PROCEDURE WAS PER FORMED BY THE UNDERSIGNED.
[2018-12-22 18:16] LABS: Glucose,Whole Blood 145 mg/dL (75-99)
--- NOTE | 2018-12-22 23:21 | P.PN ---
Subjective This is a very pleasant 58-year-old female with a history of COPD, B/L breast cancer , had previous mastectomy and reconstruction ,s/p tracheostomy in 2018. who presents with dyspena , increased cough and yellow phlegm and sometimes blood tinged. his saturation is 95% on 40% FIO, wbc 15.7K. increased bicarb, creatinine 0.3. sugar is controlled. has pseudomonas in sputum culture and E.Coli in Urine culture . chest x-ray: chronic changes with emphysema. pt remains in the ICU and she is been followed up by pulmonary team closely. she is vent dependant with trach,. pt has pseudomonas which is mostly colonization . no fever or leukocytosis, and breathing is stable. pt is on PEG. c/w prednisone, pt is going to ECF upon discharge Objective - Vital Signs Vital signs: Vital Signs Temp 97 F L 12/22/18 12:00 Pulse 94 12/22/18 12:00 Resp 22 12/22/18 12:00 BP 123/84 12/22/18 12:00 Pulse Ox 94 L 12/22/18 12:00 Intake & Output 12/21/18 12/22/18 12/22/18 18:59 06:59 18:59 Intake Total 007 672 0492 Output Total 1575 270 410 Balance -825 555 930 Weight 46.4 kg Intake: IV 240 310 100 Sodium Chloride 0.9% 1, 240 310 100 000 ml @ 20 mls/hr IV . Q24H [facility] Rx#:[id number] Intake, IV Titration 1000 Amount Sodium Chloride 0.9% 1, 1000 000 ml @ 999 mls/hr IV . Q1H1M ONE Rx#:[id number] Tube Feeding 420 455 180 Other 90 60 60 Output: Urine 1575 270 410 Other: Voiding Method Indwelling Catheter Indwelling Catheter Indwelling Catheter - Exam GENERAL: The patient is alert and oriented x3, not in any acute distress. Well developed, well nourished. HEENT: Pupils are round and equally reacting to light. EOMI. No scleral icterus. No conjunctival pallor. Normocephalic, atraumatic. No pharyngeal erythema. No thyromegaly. CARDIOVASCULAR: S1 and S2 present. No murmurs, rubs, or gallops. -PULMONARY: Chest is clear to auscultation, scattered wheezing . no crackles. ABDOMEN: Soft, nontender, nondistended, normoactive bowel sounds. No palpable organomegaly. MUSCULOSKELETAL: No joint swelling or deformity. EXTREMITIES: No cyanosis, clubbing, or pedal edema. NEUROLOGICAL: Gross neurological examination did not reveal any focal deficits. SKIN: No rashes. - Labs CBC & Chem 7: 12/22/18 04:16 12/22/18 04:16 Labs: Abnormal Lab Results - Last 24 Hours (Table) 12/21/18 12/22/18 12/22/18 Range/Units 17:36 04:16 04:16 MCHC 29.2 L (31.0-37.0) g/dL Chloride 96 L (98-107) mmol/L Carbon Dioxide 44 H* (22-30) mmol/L BUN 20 H (7-17) mg/dL Creatinine 0.31 L (0.52-1.04) mg/dL Glucose 118 H (74-99) mg/dL POC Glucose (mg/dL) 126 H (75-99) mg/dL 12/22/18 12/22/18 Range/Units 05:49 11:56 MCHC (31.0-37.0) g/dL Chloride (98-107) mmol/L Carbon Dioxide (22-30) mmol/L BUN (7-17) mg/dL Creatinine (0.52-1.04) mg/dL Glucose (74-99) mg/dL POC Glucose (mg/dL) 108 H 138 H (75-99) mg/dL Assessment and Plan Assessment: acute on chronic respiratory failure acute copd exacerbation s/p tracheostomy in 2018 S/p PEG tube for feeding B/L breast cancer , had previous mastectomy and reconstruction leukocytosis Plan: we recommend to contiue with the breathing treatment and solumedrol 40 mg, resume her home medication , we keep to monitor pt closely with vitals and labs .pulmonary team are following the pt and she remains in the ICU for now for further monitoring . heparin for DVT prophylaxis and protonix for GI prophylaxis , further recommendation will be according to the pt progress
[2018-12-23 00:18] LABS: Glucose,Whole Blood 111 mg/dL (75-99)
[2018-12-23] MEDS: IPRATROPIUM-ALBUTEROL 3 ML NEB INHALATION SCH ×6 (03:03→23:04)
[2018-12-23 05:31] LABS: HCT 36.7 % (34.0-46.0); HGB 11.3 gm/dL (11.4-16.0); Hypochromasia Marked; MCHC 30.9 g/dL (31.0-37.0); Platelet Count 170 k/uL (150-450); RDW 14.2 % (11.5-15.5); WBC 10.5 k/uL (3.8-10.6)
[2018-12-23 06:01] LABS: Blood Urea Nitrogen 17 mg/dL (7-17); Calcium 9.5 mg/dL (8.4-10.2); Chloride 93 mmol/L (98-107); Glucose 84 mg/dL (74-99); Phosphorus 3.5 mg/dL (2.5-4.5); Potassium 4.5 mmol/L (3.5-5.1); Sodium 138 mmol/L (137-145)
[2018-12-23 06:09] LABS: Anion Gap -3 mmol/L
[2018-12-23 06:21] LABS: Carbon Dioxide 48 mmol/L (22-30)
[2018-12-23 06:38] LABS: Glucose,Whole Blood 111 mg/dL (75-99)
[2018-12-23] MEDS: FORMOTEROL FUMARATE 20 MCG/2 ML NEBU INHALATION SCH ×2 (08:28→20:42)
[2018-12-23] MEDS: BUDESONIDE 1 MG/2 ML NEBU INHALATION SCH ×2 (08:29→20:42)
[2018-12-23 09:58] VITALS: BMI 17.9
[2018-12-23] MEDS: HEPARIN SODIUM,PORCINE 5,000 UNIT/ML 1 ML VIAL SQ SCH ×2 (10:02→21:00)
[2018-12-23] MEDS: CHLORHEXIDINE GLUCONATE 15 ML CUP MUCOUS MEM SCH ×2 (10:02→21:00)
[2018-12-23] MEDS: PANTOPRAZOLE 40 MG/10 ML VIAL IV SCH (10:02)
[2018-12-23] MEDS: predniSONE 20 MG TAB PO SCH (10:03)
[2018-12-23] MEDS: DOCUSATE ORAL SOLN 100 MG/10 ML CUP PO SCH (10:03)
[2018-12-23] MEDS: LACTOBACILLUS ACIDOPH & BULGAR 1 EACH PACKET PO SCH ×3 (10:03→16:35)
--- NOTE | 2018-12-23 10:27 | P.PN ---
Subjective Progress Note Date: 12/23/18 Principal diagnosis: Acute on chronic hypoxic and hypercapnic respiratory failure secondary to COPD exacerbation. 58-year-old female patient with advanced COPD with a baseline FEV1 of less than 30% of predicted, developed recent episode of acute respiratory failure requiring intubation, and failure to wean. required a tracheostomy tube insertion for that reason. There is a Shiley tracheostomy tube in place. The patient also has a PEG tube. The patient was sent to [facility] during an earlier hospitalization and following that the patient went to a correction in [place] for further recuperation. The patient was eventually improved and she was discharged with home ventilator that she's been using on a regular basis. The patient came back to the hospital because of worsening shortness of breath and she was diagnosed having an acute COPD exacerbation. Currently she is attached back to a mechanical ventilator. Patient has been on multiple trials of pressure support and CPAP, and yesterday she was on CPAP with minimal pressure support most of the day. Today she is back on assist control mode of mechanical ventilation. Patient is now on assist control rate of 16, tidal volume of 300 FiO2 of 40% and PEEP of 5. Patient seems to be tolerating that mode of mechanical ventilation quite well, and my understanding was that the patient did not qualify for [facility] evaluation, and could not be transferred. Hence we plan to continue weaning trials, and most likely she'll end up going home or to a facility with home ventilator. Patient is going to be impossible to wean off mechanical ventilation. Patient had a PEG tube in place, and we'll plan to place a PICC line, we will try again pressure support of 5 and PEEP of 5 today, and in the meantime hospice social worker and discharge planning are addressing possibly even a facility which can handle the ventilator, or eventually home with her own ventilator. Chest x-ray was reviewed from 12/18/2018, and no evidence of active disease. No chest x-ray was done today. All labs including CBC, basic metabolic profile were reviewed, bicarb is elevated at 44 and this is chronic metabolic compensation for chronic respiratory acidosis. All meds were reviewed and unchanged. Patient was reevaluated today on 12/23/2018, remains on mechanical ventilation. Tolerating intermittent trials of pressure support and CPAP, patient has chronic tracheostomy in place. No major issues overnight, patient denies any specific complaints except for slightly constipated. Denies any nausea no vomiting no abdominal pain. She remains on mechanical ventilation presently on assist control mode of mechanical ventilation. Continues to have a PEG tube in place, and patient is being considered for transfer to [facility] in [place]. Labs today showed relatively normal CBC hemoglobin is 11.3 WBC count is 10.5. Left lites are normal bicarb is 48 profile is normal no chest x-ray was done today. She had a PICC line placed yesterday uneventfully. Objective - Vital Signs Vital signs: Vital Signs Temp 98.5 F 12/23/18 08:00 Pulse 84 12/23/18 09:05 Resp 18 12/23/18 09:00 BP 164/88 12/23/18 09:00 Pulse Ox 98 12/23/18 09:00 Intake & Output 12/22/18 12/23/18 12/23/18 18:59 06:59 18:59 Intake Total 1460 365 215 Output Total 1310 597 115 Balance 150 -232 100 Weight 47.4 kg 47.4 kg Intake: IV 220 260 80 Sodium Chloride 0.9% 1, 220 260 80 000 ml @ 20 mls/hr IV . Q24H [facility] Rx#:[id number] Intake, IV Titration 1000 Amount Sodium Chloride 0.9% 1, 1000 000 ml @ 999 mls/hr IV . Q1H1M ONE Rx#:[id number] Tube Feeding 180 105 105 Other 60 30 Output: Urine 1310 597 115 Other: Voiding Method Indwelling Catheter Indwelling Catheter - Exam Physical Exam: Revealed a 58-year-old female, frail looking, being ventilated, via tracheostomy. Head: Atraumatic, normocephalic. Tracheostomy site is intact. HEENT:[Neck is supple.] [No neck masses.] [No thyromegaly.] [No JVD.] Tracheostomy tube, Shiley #6 cuffed and not fenestrated. Noted. Chest: [Diminished breath sound bilaterally, no crackles, no rhonchi no wheezes. Cardiac Exam: [Normal S1 and S2, no S3 gallop, no murmur.] Abdomen: [Soft, nontender, no megaly, no rebound, no guarding, normal bowel sounds.] PEG tube is intact. Extremities: [No clubbing, no edema, no cyanosis.] Neurological Exam: [No focal neurologic deficit.] Psychiatric: Normal mood affect and mental status examination. Skin: No rashes. - Labs CBC & Chem 7: 12/23/18 04:15 12/23/18 04:15 Labs: Abnormal Lab Results - Last 24 Hours (Table) 12/22/18 12/22/18 12/23/18 Range/Units 11:56 18:15 00:16 Hgb (11.4-16.0) gm/dL MCHC (31.0-37.0) g/dL Chloride (98-107) mmol/L Carbon Dioxide (22-30) mmol/L Creatinine (0.52-1.04) mg/dL POC Glucose (mg/dL) 138 H 145 H 111 H (75-99) mg/dL 12/23/18 12/23/18 12/23/18 Range/Units 04:15 04:15 06:36 Hgb 11.3 L (11.4-16.0) gm/dL MCHC 30.9 L (31.0-37.0) g/dL Chloride 93 L (98-107) mmol/L Carbon Dioxide 48 H* (22-30) mmol/L Creatinine 0.22 L (0.52-1.04) mg/dL POC Glucose (mg/dL) 111 H (75-99) mg/dL Assessment and Plan Assessment: Impression: 1 acute on chronic hypercapnic and hypoxic respiratory failure secondary to severe COPD exacerbation. Remains on mechanical ventilation. Being considered for possible transfer to [facility] in [place]. 2 end stage COPD: Stage IV patient normally has a triology ventilator at home. The option of sending her home is out of the question because the patient will likely fail again and in the back in the hospital. 3 chronic hypoxic and hypercapnic respiratory failure secondary to COPD 4 positive tracheal secretions for Pseudomonas, but no clear-cut evidence of infection, patient remains on antibiotics,/Merrem. Chest x-ray has been reassuring, this is felt to be colonization. 5 previous history of pneumothorax requiring chest tube insertion and mechanical pleurodesis. 6 chronic depression 7 enteral feeding via PEG tube 8 status post PICC line placement Recommendation: Continue ventilatory support, nutritional support, bronchodilators, GI and DVT prophylaxis, discontinue Merrem, I agree with discharge planning today to [facility], although the patient remains quite ill with multiple complex medical issues related to her debility and to her COPD. Could be seen on outpatient basis if necessary. Time with Patient: Less than 30
[2018-12-23 11:56] LABS: Glucose,Whole Blood 132 mg/dL (75-99)
[2018-12-23] MEDS: LORazepam 2 MG/ML INJ IV PRN ×2 (13:53→23:41)
[2018-12-23 17:51] LABS: Glucose,Whole Blood 138 mg/dL (75-99)
--- NOTE | 2018-12-23 17:52 | P.PN ---
Subjective This is a very pleasant 58-year-old female with a history of COPD, B/L breast cancer , had previous mastectomy and reconstruction ,s/p tracheostomy in 2018. who presents with dyspena , increased cough and yellow phlegm and sometimes blood tinged. his saturation is 95% on 40% FIO, wbc 15.7K. increased bicarb, creatinine 0.3. sugar is controlled. has pseudomonas in sputum culture and E.Coli in Urine culture . chest x-ray: chronic changes with emphysema. pt remains in the ICU and she is been followed up by pulmonary team closely. she is vent dependant with trach,. pt has pseudomonas which is mostly colonization . no fever or leukocytosis, and breathing is stable. pt is on PEG. c/w prednisone, pt is going to ECF upon discharge 12/23/18 Patient is clinically stable with no significant change from yesterday. Vitas is stable. Patient remains vent dependent with tracheostomy in place. Patient today has been cleared for discharge by pulmonary team and medical team however she will leave tomorrow for placement issue to the [facility] she is going to Objective - Vital Signs Vital signs: Vital Signs Temp 99.1 F 12/23/18 16:00 Pulse 100 12/23/18 17:00 Resp 18 12/23/18 17:00 BP 138/89 12/23/18 17:00 Pulse Ox 93 L 12/23/18 17:00 Intake & Output 12/22/18 12/23/18 12/23/18 18:59 06:59 18:59 Intake Total 1460 365 710 Output Total 3259 167 1363 Balance 150 -232 -435 Weight 47.4 kg 47.4 kg Intake: IV 220 260 200 Sodium Chloride 0.9% 1, 220 260 200 000 ml @ 20 mls/hr IV . Q24H [facility] Rx#:[id number] Intake, IV Titration 1000 Amount Sodium Chloride 0.9% 1, 1000 000 ml @ 999 mls/hr IV . Q1H1M ONE Rx#:[id number] Tube Feeding 180 105 350 Other 60 160 Output: Urine 5505 125 7940 Other: Voiding Method Indwelling Catheter Indwelling Catheter Indwelling Catheter # Voids 1 - Exam GENERAL: The patient is alert and oriented x3, not in any acute distress. Well developed, well nourished. HEENT: Pupils are round and equally reacting to light. EOMI. No scleral icterus. No conjunctival pallor. Normocephalic, atraumatic. No pharyngeal erythema. No thyromegaly. CARDIOVASCULAR: S1 and S2 present. No murmurs, rubs, or gallops. -PULMONARY: Chest is clear to auscultation, scattered wheezing . no crackles. ABDOMEN: Soft, nontender, nondistended, normoactive bowel sounds. No palpable organomegaly. MUSCULOSKELETAL: No joint swelling or deformity. EXTREMITIES: No cyanosis, clubbing, or pedal edema. NEUROLOGICAL: Gross neurological examination did not reveal any focal deficits. SKIN: No rashes. - Labs CBC & Chem 7: 12/23/18 04:15 12/23/18 04:15 Labs: Abnormal Lab Results - Last 24 Hours (Table) 12/22/18 12/23/18 12/23/18 Range/Units 18:15 00:16 04:15 Hgb 11.3 L (11.4-16.0) gm/dL MCHC 30.9 L (31.0-37.0) g/dL Chloride (98-107) mmol/L Carbon Dioxide (22-30) mmol/L Creatinine (0.52-1.04) mg/dL POC Glucose (mg/dL) 145 H 111 H (75-99) mg/dL 12/23/18 12/23/18 12/23/18 Range/Units 04:15 06:36 11:54 Hgb (11.4-16.0) gm/dL MCHC (31.0-37.0) g/dL Chloride 93 L (98-107) mmol/L Carbon Dioxide 48 H* (22-30) mmol/L Creatinine 0.22 L (0.52-1.04) mg/dL POC Glucose (mg/dL) 111 H 132 H (75-99) mg/dL 12/23/18 Range/Units 17:49 Hgb (11.4-16.0) gm/dL MCHC (31.0-37.0) g/dL Chloride (98-107) mmol/L Carbon Dioxide (22-30) mmol/L Creatinine (0.52-1.04) mg/dL POC Glucose (mg/dL) 138 H (75-99) mg/dL Assessment and Plan Assessment: acute on chronic respiratory failure acute copd exacerbation s/p tracheostomy in 2018 S/p PEG tube for feeding B/L breast cancer , had previous mastectomy and reconstruction leukocytosis Plan: we recommend to contiue with the breathing treatment and solumedrol 40 mg, resume her home medication , we keep to monitor pt closely with vitals and labs .pulmonary team are following the pt and she remains in the ICU for now for further monitoring . heparin for DVT prophylaxis and protonix for GI prophylaxis , further recommendation will be according to the pt progress
[2018-12-23 23:41] LABS: Glucose,Whole Blood 144 mg/dL (75-99)
[2018-12-24] MEDS: SODIUM CHLORIDE 0.9% 1,000 ML IV SCH (02:51)
[2018-12-24] MEDS: IPRATROPIUM-ALBUTEROL 3 ML NEB INHALATION SCH ×3 (03:07→11:00)
[2018-12-24 06:20] LABS: Glucose,Whole Blood 86 mg/dL (75-99)
[2018-12-24] MEDS: FORMOTEROL FUMARATE 20 MCG/2 ML NEBU INHALATION SCH (06:56)
[2018-12-24] MEDS: BUDESONIDE 1 MG/2 ML NEBU INHALATION SCH (06:56)
[2018-12-24 07:06] VITALS: RESP 18
--- NOTE | 2018-12-24 08:55 | P.DS ---
Providers Date of admission: 12/12/18 09:53 Attending physician: Morgan Webb MD Consults: 12/12/18 09:35 Consult Physician Stat Consulting Provider: Abe Henderson Consult Reason/Comments: COPD, pneumonia Do you want consulting provider notified?: Yes Primary care physician: Abe Henderson Hospital Course: ' Diagnosis: acute on chronic respiratory failure acute copd exacerbation , improving s/p tracheostomy in 2018. vent dependant S/p PEG tube for feeding B/L breast cancer , had previous mastectomy and reconstruction leukocytosis Hospital course: His is a pleasant 58 years old female with past medical history of advanced COPD , bilateral breast cancer had a previous mastectomy and reconstruction. She is a status post tracheostomy in 2018 and she is vent dependent. She presents with dyspnea and increasing cough and phlegm. Patient has been treated for acute hypoxic respiratory failure secondary to severe COPD exacerbation, on the top of her end-stage COPD. She saturating 93-94% on FiO2 of 40%. Patient has Pseudomonas growing in her trach secretion which is mostly contamination. chest x-ray: chronic changes with emphysema. . No fever or leukocytosis. Patient is breathing is a stable. And she is on PEG with tube feeding. Patient at baseline and uses prednisone 10 mg daily, currently she is on prednisone 30 mg daily which needs to be tapered down to her usual dose of 10 mg daily. Patient has been evaluated by assistant director of residence life team who were following her closely and now cleared her for discharge. Patient was found stable and can be discharged to [facility] and guarded prognosis, however she needs follow-up as an outpatient Gen: patient is a AAOx3, no distress CVS: S1-S2, RRR, no murmur Lungs: B/L CTA, no wheezing. Tracheostomy is in place. Patient is vent dependent Abdomen: soft, no distention, no tenderness, positive bowel sounds Extremity: no leg edema or induration Time spent more than 35 minutes Patient Condition at Discharge: Fair Plan - Discharge Summary Discharge Rx Participant: No New Discharge Prescriptions: New Acetaminophen Tab [Tylenol] 325 mg PO Q6HR PRN tab PRN Reason: Fever and/ or Mild Pain Budesonide [Pulmicort] 1 mg INHALATION RT-BID nebu Chlorhexidine Gluconate [Peridex] 15 ml MUCOUS MEM BID solution Heparin Sodium,Porcine [Heparin Sodium] 5,000 unit SQ Q12HR vial Lactobacillus Acidoph & Bulgar [Lactinex] 1 each PO 0730,1200,1700 packet Pantoprazole Sodium [Protonix] 40 mg PO DAILY #30 tablet. predniSONE 10 mg PO DIRECTED #30 tab Continue Budesonide-Formot 160-4.5 Mcg [Symbicort 160-4.5 Mcg Inhaler] 2 puff INHALATION RT-BID #120 puff clonazePAM [KlonoPIN] 1 mg PO QID PARoxetine HCL [Paxil] 40 mg PO DAILY Ipratropium-Albuterol Nebulize [Duoneb 0.5 mg-3 mg/3 ml Soln] 3 ml INHALATION RT-QID Discontinued predniSONE 10 mg PO DAILY Discharge Medication List Budesonide-Formot 160-4.5 Mcg [Symbicort 160-4.5 Mcg Inhaler] 2 puff INHALATION RT-BID #120 puff 07/07/17 [Rx] Ipratropium-Albuterol Nebulize [Duoneb 0.5 mg-3 mg/3 ml Soln] 3 ml INHALATION RT -QID 12/12/18 [History] PARoxetine HCL [Paxil] 40 mg PO DAILY 12/12/18 [History] clonazePAM [KlonoPIN] 1 mg PO QID 12/12/18 [History] Acetaminophen Tab [Tylenol] 325 mg PO Q6HR PRN tab 12/23/18 [Rx] Budesonide [Pulmicort] 1 mg INHALATION RT-BID nebu 12/23/18 [Rx] Chlorhexidine Gluconate [Peridex] 15 ml MUCOUS MEM BID solution 12/23/18 [Rx] Heparin Sodium,Porcine [Heparin Sodium] 5,000 unit SQ Q12HR vial 12/23/18 [Rx] Lactobacillus Acidoph & Bulgar [Lactinex] 1 each PO 0730,1200,1700 packet 12/23 [Rx] Pantoprazole Sodium [Protonix] 40 mg PO DAILY #30 tablet. 12/23/18 [Rx] predniSONE 10 mg PO DIRECTED #30 tab 12/23/18 [Rx] Follow up Appointment(s)/Referral(s): Abe Henderson DO [Primary Care Provider] - 1-2 days [facility] Visiting Nurse, [NON-STAFF] - 1-2 Days Discharge Disposition: TRANSFER TO SNF/ECF
[2018-12-24] MEDS ORDERED: predniSONE 10 MG TAB PO SCH (09:00)
[2018-12-24] MEDS: LACTOBACILLUS ACIDOPH & BULGAR 1 EACH PACKET PO SCH (09:17)
[2018-12-24] MEDS: LORazepam 2 MG/ML INJ IV PRN (09:17)
[2018-12-24] MEDS: PANTOPRAZOLE 40 MG/10 ML VIAL IV SCH (09:17)
[2018-12-24] MEDS: CHLORHEXIDINE GLUCONATE 15 ML CUP MUCOUS MEM SCH (09:17)
[2018-12-24] MEDS: HEPARIN SODIUM,PORCINE 5,000 UNIT/ML 1 ML VIAL SQ SCH (09:17)
[2018-12-24] MEDS: DOCUSATE ORAL SOLN 100 MG/10 ML CUP PO SCH (09:19)
--- NOTE | 2018-12-24 10:14 | P.PN ---
Subjective Progress Note Date: 12/24/18 Principal diagnosis: Acute on chronic hypoxic and hypercapnic respiratory failure secondary to COPD exacerbation. 58-year-old female patient with advanced COPD with a baseline FEV1 of less than 30% of predicted, developed recent episode of acute respiratory failure requiring intubation, and failure to wean. required a tracheostomy tube insertion for that reason. There is a Shiley tracheostomy tube in place. The patient also has a PEG tube. The patient was [facility] to [facility] during an earlier hospitalization and following that the patient went to a halfway in [place] for further recuperation. The patient was eventually improved and she was discharged with home ventilator that she's been using on a regular basis. The patient came back to the hospital because of worsening shortness of breath and she was diagnosed having an acute COPD exacerbation. Currently she is attached back to a mechanical ventilator. Patient has been on multiple trials of pressure support and CPAP, and yesterday she was on CPAP with minimal pressure support most of the day. Today she is back on assist control mode of mechanical ventilation. Patient is now on assist control rate of 16, tidal volume of 300 FiO2 of 40% and PEEP of 5. Patient seems to be tolerating that mode of mechanical ventilation quite well, and my understanding was that the patient did not qualify for [facility] evaluation, and could not be transferred. Hence we plan to continue weaning trials, and most likely she'll end up going home or to a facility with home ventilator. Patient is going to be impossible to wean off mechanical ventilation. Patient had a PEG tube in place, and we'll plan to place a PICC line, we will try again pressure support of 5 and PEEP of 5 today, and in the meantime clinical social work therapist and discharge planning are addressing possibly even a facility which can handle the ventilator, or eventually home with her own ventilator. Chest x-ray was reviewed from 12/18/2018, and no evidence of active disease. No chest x-ray was done today. All labs including CBC, basic metabolic profile were reviewed, bicarb is elevated at 44 and this is chronic metabolic compensation for chronic respiratory acidosis. All meds were reviewed and unchanged. Patient was reevaluated today on 12/23/2018, remains on mechanical ventilation. Tolerating intermittent trials of pressure support and CPAP, patient has chronic tracheostomy in place. No major issues overnight, patient denies any specific complaints except for slightly constipated. Denies any nausea no vomiting no abdominal pain. She remains on mechanical ventilation presently on assist control mode of mechanical ventilation. Continues to have a PEG tube in place, and patient is being considered for transfer to [facility] in [place]. Labs today showed relatively normal CBC hemoglobin is 11.3 WBC count is 10.5. Left lites are normal bicarb is 48 profile is normal no chest x-ray was done today. She had a PICC line placed yesterday uneventfully. Patient was reevaluated today on 12/24/2018, remains in the ICU on mechanical ventilation. Her ventilator settings are basically the same. Patient is relatively asymptomatic, patient is on assist control mode of mechanical ventilation, and in no distress. Transfer plans are in progress, and the patient will be transferred to [facility] in the next couple of hours. No further GI symptoms, no nausea no vomiting, patient is being fed via PEG tube. No labs were done today, labs from yesterday were reviewed. No chest x-ray was done today. Her last chest x-ray was from 12/22. Objective - Vital Signs Vital signs: Vital Signs Temp 98.1 F 12/24/18 04:00 Pulse 80 12/24/18 07:17 Resp 18 12/24/18 07:00 BP 137/78 12/24/18 07:00 Pulse Ox 96 12/24/18 07:00 Intake & Output 12/23/18 12/24/18 12/24/18 18:59 06:59 18:59 Intake Total 745 450 35 Output Total 1295 735 45 Balance -550 -285 -10 Weight 47.4 kg 43.4 kg Intake: IV 200 Sodium Chloride 0.9% 1, 200 000 ml @ 20 mls/hr IV . Q24H [facility] Rx#:[id number] Tube Feeding 385 420 35 Other 160 30 Output: Urine 1295 735 45 Other: Voiding Method Indwelling Catheter Indwelling Catheter # Voids 1 # Bowel Movements 1 - Exam Physical Exam: Revealed a 58-year-old female, frail looking, being ventilated, via tracheostomy. Head: Atraumatic, normocephalic. Tracheostomy site is intact. HEENT:[Neck is supple.] [No neck masses.] [No thyromegaly.] [No JVD.] Tracheostomy tube, Jennifer #6 cuffed and not fenestrated. Noted. Chest: [Diminished breath sound bilaterally, no crackles, no rhonchi no wheezes. Cardiac Exam: [Normal S1 and S2, no S3 gallop, no murmur.] Abdomen: [Soft, nontender, no megaly, no rebound, no guarding, normal bowel sounds.] PEG tube is intact. Extremities: [No clubbing, no edema, no cyanosis.] Neurological Exam: [No focal neurologic deficit.] Psychiatric: Normal mood affect and mental status examination. Lymphatics: No lymphadenopathy. Skin: No rashes. - Labs CBC & Chem 7: 12/23/18 04:15 12/23/18 04:15 Labs: Abnormal Lab Results - Last 24 Hours (Table) 12/23/18 12/23/18 12/23/18 Range/Units 11:54 17:49 23:39 POC Glucose (mg/dL) 132 H 138 H 144 H (75-99) mg/dL Assessment and Plan Assessment: Impression: 1 acute on chronic hypercapnic and hypoxic respiratory failure secondary to severe COPD exacerbation. Remains on mechanical ventilation. Patient was transferred to [facility] today. This facility is in [facility]. 2 end stage COPD: Stage IV patient normally has a triology ventilator at home. The option of sending her home is out of the question because the patient will likely fail again and in the back in the hospital. 3 chronic hypoxic and hypercapnic respiratory failure secondary to COPD 4 positive tracheal secretions for Pseudomonas, but no clear-cut evidence of infection, patient remains on antibiotics,/Merrem. Chest x-ray has been reassuring, this is felt to be colonization. 5 previous history of pneumothorax requiring chest tube insertion and mechanical pleurodesis. 6 chronic depression 7 enteral feeding via PEG tube 8 status post PICC line placement Recommendation: Continue ventilatory support, nutritional support, bronchodilators, patient was discussed with the admitting physician yesterday and I am agreeable to proceed with transfer plans today. Patient will follow up on outpatient basis in our office with Dr. swann. Time with Patient: Less than 30
[2018-12-24 12:11] LABS: Glucose,Whole Blood 152 mg/dL (75-99)
[2018-12-24 15:50] VITALS: TEMP 98.4
[2018-12-24 15:58] VITALS: BP 170/104; PULSE 97
== END 2018-12-24 16:24 | DRG 207 ==
LOC: EC 07:41 → 2SICU 09:53
PROVIDERS: ADMIT Internal Medicine; ATTEND Internal Medicine
PROC: 5A1955Z Respiratory Ventilation, Greater than 96 Consecutive Hours (ICD-10-PCS; principal; 2018-12-12)
PROC: 0DH63UZ Insertion of Feeding Device into Stomach, Percutaneous Approach (ICD-10-PCS; 2018-12-17)
PROC: 3E0G76Z Introduction of Nutritional Substance into Upper GI, Via Natural or Artificial Opening (ICD-10-PCS; 2018-12-18)
PROC: 02HV33Z Insertion of Infusion Device into Superior Vena Cava, Percutaneous Approach (ICD-10-PCS; 2018-12-22)
DX: J96.21 Acute and chronic respiratory failure with hypoxia (principal); J15.1 Pneumonia due to Pseudomonas; Z99.11 Dependence on respirator [ventilator] status; E87.2 Acidosis; R04.2 Hemoptysis; R13.12 Dysphagia, oropharyngeal phase; J96.22 Acute and chronic respiratory failure with hypercapnia; J43.9 Emphysema, unspecified; F32.9 Major depressive disorder, single episode, unspecified; F41.9 Anxiety disorder, unspecified; K59.00 Constipation, unspecified; Z93.0 Tracheostomy status; Z79.51 Long term (current) use of inhaled steroids; Z79.52 Long term (current) use of systemic steroids; Z79.899 Other long term (current) drug therapy; Z99.81 Dependence on supplemental oxygen; Z87.01 Personal history of pneumonia (recurrent); Z87.891 Personal history of nicotine dependence; Z85.3 Personal history of malignant neoplasm of breast; Z98.82 Breast implant status; Z90.13 Acquired absence of bilateral breasts and nipples; Z87.09 Personal history of other diseases of the respiratory system; Z88.1 Allergy status to other antibiotic agents; Z83.3 Family history of diabetes mellitus; Z82.49 Family history of ischemic heart disease and other diseases of the circulatory system; Z82.5 Family history of asthma and other chronic lower respiratory diseases; Z80.3 Family history of malignant neoplasm of breast; Z80.1 Family history of malignant neoplasm of trachea, bronchus and lung; Z83.49 Family history of other endocrine, nutritional and metabolic diseases; Z82.61 Family history of arthritis; Z82.69 Family history of other diseases of the musculoskeletal system and connective tissue
CPT/HCPCS: 36415; 36573; 36600; 43246; 71045; 80048; 80053; 80202; 81003; 82550; 82553; 82805; 83605; 83735; 83880; 84100; 84484; 85025; 85027; 85610; 85730; 87040; 87070; 87077; 87086; 87186; 87205; 87502; 90935; 93005; 94002; 94003; 94640; 96365; 96367; 99285